=== PATIENT | female | born 1965 | race Caucasian/White ===

== ENCOUNTER 2018-08-02 01:09 | Observation (INO) ==
[2018-08-02 01:43] LABS: Basophils # (auto) 0.11 K/uL (0-0.2); Basophils % (auto) 0.8 %; Eosinophils # (auto) 0.14 K/uL (0-0.5); Hematocrit (blood only) 50.7 % (37-47); Hemoglobin 16.5 g/dL (12.0-16.0); Immature Granulocytes # (auto) 0.06 K/uL (0.00-0.02); Immature Granulocytes % (auto) 0.4 %; Lymphocytes # (auto) 3.65 K/uL (1.2-3.4); Lymphocytes % (auto) 26.3 %; Mean Corpuscular Hgb Conc 32.5 g/dL (32-36); Mean Corpuscular Volume 84.6 fL (80-100); Mean Platelet Volume 9.1 fL (7.4-10.4); Monocytes # (auto) 0.68 K/uL (0.11-0.59); Monocytes % (auto) 4.9 %; Neutrophils # (auto) 9.22 K/uL (1.4-6.5); Neutrophils % (auto) 66.6 %; Platelet Count 262 K/uL (130-400); RDW Coefficient of Variation 14.5 % (11.5-14.5); RDW Standard Deviation 44.8 fL (36.4-46.3); Red Blood Count 5.99 M/uL (4.2-5.4); White Blood Count 13.86 K/uL (4.8-10.8)
[2018-08-02] MEDS ORDERED: fentaNYL citrate 100 MCG/2 ML VIAL IV ONE (01:52)
[2018-08-02] MEDS ORDERED: NITROGLYCERIN SL 0.4 MG/TAB TAB SL STA (01:52)
[2018-08-02 02:00] LABS: Alanine Aminotransferase 34 U/L (12-78); Albumin Level 3.9 gm/dl (3.4-5.0); Aspartate Aminotransferase 48 U/L (15-37); BUN Creatinine Ratio 15.6 (10-20); Blood Urea Nitrogen 18 mg/dl (7-18); Calcium 9.2 mg/dl (8.5-10.1); Carbon Dioxide 26 mmol/L (21-32); Chloride 102 mmol/L (98-107); Est GFR (Non-African American) 52.6; Glucose 98 mg/dl (70-99); Potassium 4.4 mmol/L (3.5-5.1); Sodium 134 mmol/L (136-145)
[2018-08-02 02:05] LABS: Alkaline Phosphatase 76 U/L (45-117); Bilirubin,Total 0.5 mg/dl (0.2-1); Globulin 3.9 gm/dl (2.5-4.0); Total Protein 7.8 gm/dl (6.4-8.2); Troponin I < 0.015 ng/ml (0-0.045)
[2018-08-02] MEDS ORDERED: fentaNYL citrate 100 MCG/2 ML VIAL IV STA (03:11)
--- NOTE | 2018-08-02 03:40 | History & Physical Report ---
Date of Service August 02, 2018 Assessment & Plan (1) Substernal chest pain: 53 y/o F Hx HTN, HLD, DM II, COPD - 4L 02, CHF - R heart with preserved LVEF, hypothyroid, severe MICHAEL, CAD - PR x 3. The pt presents with intermittent CP x 2-3 days. She describes the pain as central, nonradiating and accompanied by SOB, diaphoresis and nausea. She arrived in the ER profusely diaphoretic and responded well to NTG. The pt was last admitted to the hospital for CP 10/2017. Her last PR took place in the town [facility] in 2013. Initial labs are unremarkable including a negative troponin. An EKG showed some flattened T wvs laterally without depressions or elevations. Of note, she recently underwent a sleep study which demonstrated severe MICHAEL with severe nocturnal hypoxia. She is expecting delivery of an initial CPAP machine on 08/03. 1) CAD/CP - second admission for such complaints. Multiple risk factors may merit a catheterization. This will be left to the discretion of cardiology. She will receive NTG and/or morphine PRN, cont high-intensity statin therapy, Plavix and metoprolol. We will add ASA. 2) COPD - no evidence of acute exacerbation - cont 02 at 4L, Symbicort, Albuterol PRN 3) Severe MICHAEL - she has not yet received a CPAP machine. She will be placed on 12mm with 4L 02 per recommendations from a recent sleep study. 4) CHF - likely euvolemic on admission - laying flat comfortably an CXR is clear - cont Lasix, Aldactone, metoprolol 5) HTN, HLD - cont Atorvastatin, diuretics, metoprolol, verapamil 6) DM II - placed on a SS 7) Hypothyroid - cont Synthroid 8) Migraines - cont Topiramate, Verapamil Full code - Heparin prophylaxis Total time for this admission including review of extensive records, labs, meds, imaging, EKG, discussion with pt and ER attending - 45 min Present on Admission?: Yes History of Present Illness Primary Care Provider: Jayden Nelson, DO 53 y/o F Hx HTN, HLD, DM II, COPD - 4L 02, CHF - R heart with preserved LVEF, hypothyroid, severe MICHAEL, CAD - PR x 3. The pt presents with intermittent CP x 2-3 days. She describes the pain as central, nonradiating and accompanied by SOB, diaphoresis and nausea. She arrived in the ER profusely diaphoretic and responded well to NTG. The pt was last admitted to the hospital for CP 10/2017. Her last PR took place in the town of [facility] in 2013. Initial labs are unremarkable including a negative troponin. An EKG showed some flattened T wvs laterally without depressions or elevations. Of note, she recently underwent a sleep study which demonstrated severe MICHAEL with severe nocturnal hypoxia. She is expecting delivery of an initial CPAP machine on 08/03. PMH: 1) CAD - PR x 3 - 2 stents 2) HTN 3) HLD 4) CHF - preserved LVEF with reduced RV function on echo 2017 5) DM II 6) MICHAEL with severe nocturnal hypoxia - sleep study 06/28 recommended CPAP 12mm HS 7) COPD - 4L home 8) Morbid obesity 9) Obesity hypoventilation with chronic CO2 retention - her PCO2 averaged 60 on a prior admission 10) Hypothyroidism 11) RLS 12) DM II 13) Fatty liver 14) Avid smoker 15) Migraine headaches Surgical: 1) Cholecystectomy 2) Appendectomy 3) Hernia repair 4) Hysterectomy 5) Tonsillectomy Social: Smokes a pack of cigarettes daily since age 14, so she is approaching the 40th anniversary of her tobacco habit. She does not drink alcohol or indulge in street drugs. Family: Mother due to PR Father is alive - history of CAD/PR Allergies Allergy/AdvReac Type Severity Reaction Status Date / Time No Known Allergies Allergy Unverified 07/24/18 08:50 Home Medications Home Medications Medication Instructions Recorded Confirmed Type bupropion HCl [Wellbutrin XL] 300 mg PO QAM 10/22/17 08/02/18 History [id number]-[id number] 1 - 2 cap PO Q4H PRN 10/22/17 08/02/18 History clopidogrel [Plavix] 75 mg PO QPM 10/22/17 08/02/18 History diclofenac potassium 50 mg PO BID 10/22/17 08/02/18 History diphenhydramine HCl [Benadryl] 25 mg PO BID 10/22/17 08/02/18 History duloxetine 60 mg PO DAILY 10/22/17 08/02/18 History furosemide [Lasix] 40 mg PO DAILY 10/22/17 08/02/18 History gabapentin 800 mg PO TID 10/22/17 08/02/18 History magnesium oxide 400 mg PO BID 10/22/17 08/02/18 History metformin 1,000 mg PO BID 10/22/17 08/02/18 History metoprolol tartrate [Lopressor] 50 mg PO QPM 10/22/17 08/02/18 History ropinirole [Requip] 1 mg PO BID 10/22/17 08/02/18 History spironolactone 12.5 mg PO QPM 10/22/17 08/02/18 History trazodone 100 mg PO QPM 10/22/17 08/02/18 History albuterol sulfate 2 puffs INH Q4H PRN #8.5 gm 10/28/17 08/02/18 Rx fenofibrate 160 mg tablet 160 mg PO DAILY 05/08/18 08/02/18 History levothyroxine 50 mcg tablet 50 mcg PO DAILY 05/08/18 08/02/18 History topiramate XR 25 mg 25 mg PO BID cap 05/08/18 08/02/18 History capsule,extended release 24 hr atorvastatin 80 mg tablet 80 mg PO QPM #90 tab 07/17/18 08/02/18 Rx verapamil ER (SR) 240 mg 240 mg PO QPM #90 tab 07/17/18 08/02/18 Rx tablet,extended release bacitracin 1 applic TOPICAL BID 08/02/18 08/02/18 History budesonide-formoterol [Symbicort] 2 puff INHALATION BID 08/02/18 08/02/18 History erenumab-aooe [Aimovig 70 mg SUBCUT DIRECTED 08/02/18 08/02/18 History Autoinjector] ertugliflozin [Steglatro] 15 mg PO QAM 08/02/18 08/02/18 History insulin glargine [Basaglar KwikPen 30 unit SUBCUT HS 08/02/18 08/02/18 History U-100 Insulin] liraglutide [Victoza 2-Isidro] 1.8 mg SUBCUT DAILY 08/02/18 08/02/18 History tramadol 50 mg PO Q12H PRN 08/02/18 08/02/18 History Past Med/Surg History Medical History Acquired deformity of left foot (Acute) Acquired deformity of right foot (Acute) Bilateral swelling of feet (Acute) Callus (Acute) Diabetes mellitus with diabetic polyneuropathy (Acute) Left midfoot ulcer (Acute) Asthma (Chronic) CHF (congestive heart failure) (Chronic) COPD (chronic obstructive pulmonary disease) (Chronic) Coronary artery disease (Chronic) Glaucoma (Chronic) H/O diabetic nephropathy (Chronic) HTN, goal to be determined (Chronic) Heart failure (Chronic) Hyperlipemia (Chronic) Hypertriglyceridemia (Chronic) Hypothyroid (Chronic) Insomnia (Chronic) Marijuana use (Chronic) Obesity (Chronic) Restless leg (Chronic) Tobacco use (Chronic) Tremor (Chronic) H/O: hysterectomy (Resolved) Anxiety Bipolar disorder Depression Diabetes mellitus, type 2 Heart attack Obsessive compulsive disorder Posttraumatic stress disorder Surgical History H/O hernia repair (Resolved) History of (Resolved) History of appendectomy (Resolved) History of cholecystectomy (Resolved) S/P tonsillectomy (Resolved) H/O heart artery stent History of heart artery stent Family History Other Family history unknown Social History Preferred Language: Israeli Communication Ability: Effective Beliefs That Will Affect Care: None marital status: Current Living Situation: Spouse current occupational status: unemployed Feels Safe at Home: Yes Smoking Status: Current every day smoker Tobacco Type: cigarettes Second Hand Exposure: No Hx Alcohol Use: No Hx Substance Use: Yes substance use type: marijuana Review of Systems Review of Systems: Gen: Denies fevers, night sweats, rigors, fatigue, malaise, weight loss/gain - profuse diaphoresis with CP ENT: Denies congestion, throat pain, hearing loss Eyes: Denies acute visual changes CV: Central CP as per HPI Pulmonary: SOB during episodes of CP GI: Denies N/V, diarrhea, constipation Neuro: Denies acute or unilateral weakness, acute gait impairment, headache or acute visual changes Musculoskeletal: Denies joint pain, inflammation Endocrine: Denies polydipsia, polyuria Skin: Denies acute rashes or ulcers Physical Exam Physical Exam: General: Obese, middle-aged F, AAO x 3, no distress ENT: No erythema or exudates, no thrush Eyes: JERMAN, EOMI Head and neck: Normocephalic, atraumatic, neck is supple, cannot evaluate for JVD. Chest/heart: Nontender, S1,2, RRR, no murmurs, no gallops Lungs: CTAB, no wheezing or crackles Abdomen: Nontender, nondistended, BS+ Neuro: AAO x 3, speech is clear, no unilateral weakness or loss of sensation, coordination intact Musculoskeletal: No joint inflammation, muscle tenderness, FROM Skin: No acute rashes or ulcers Extremities: No clubbing, cyanosis. + BL edema. Results & Data Vital Signs (Past 12 Hours) Vital Signs Temp Pulse Pulse Resp BP BP Pulse Ox 08/02/18 02:59 74 20 114/73 97 08/02/18 02:14 90 08/02/18 01:36 94 08/02/18 01:23 79 19 144/89 H 96 08/02/18 01:14 97.9 F 78 20 128/85 94 Diagnostic Findings CXR: No infiltrates or evidence of vascular congestion EKG: NSR, Lat T wave flattening - no elevations/depressions PG Care Time/CCT Total # of Minutes Spent Total Time Spent with Patient: Total time spent is greater than 50% in coordination of care (as documented) at patient's floor/unit and/or counseling patient:
[2018-08-02] MEDS ORDERED: POLYETHYLENE (MIRALAX) 17 GM PACK PO PRN (05:56)
[2018-08-02] MEDS ORDERED: ALBUTEROL HFA 8 GM INHALER INH PRN (05:56)
[2018-08-02] MEDS ORDERED: NITROGLYCERIN SL 0.4 MG/TAB TAB SL PRN (05:56)
[2018-08-02] MEDS ORDERED: ALUMINUM/MAGNESIUM SUSP 30 ML UDC PO PRN (05:56)
[2018-08-02] MEDS ORDERED: MAGNESIUM HYDROXIDE SUSP 30 ML UDC PO PRN (05:56)
[2018-08-02] MEDS ORDERED: ONDANSETRON INJ 2 MG/ML 2 ML VIAL IV PRN (05:56)
[2018-08-02] MEDS ORDERED: ACETAMINOPHEN 325 MG TAB PO PRN (05:56)
[2018-08-02] MEDS ORDERED: NITROGLYCERIN SL 0.4 MG/TAB TAB ONE (05:59)
[2018-08-02] MEDS ORDERED: MoRPHine SULFATE 4 MG/ML 1 ML CARP\\VIAL IV PRN (05:59)
[2018-08-02] MEDS ORDERED: HEPARIN SOD 5,000 UNIT/0.5 ML VIAL SQ SCH (06:00)
--- NOTE | 2018-08-02 06:22 | XRay Report ---
XR chest 1V portable CLINICAL HISTORY: Atypical chest pain COMPARISON STUDY: 10/22/2017 FINDINGS: The cardiac and mediastinal contours are normal. There is no evidence of focal pulmonary co nsolidation. There is no evidence of failure. No pleural effusions are visualized.[ IMPRESSION: No active disease in the chest. Electronically signed by: Aquiles Dickinson M.D. 08/02/2018 6:21 AM
--- NOTE | 2018-08-02 06:36 | Emergency Department Note ---
Entered by Jaimee Magana acting as a scribe for History of Present Illness General Chief complaint: Chest Pain Stated complaint: CHEST AND BACK BACK, SHOOTING PAIN LEFT ARM Time Seen by Provider: 08/02/18 01:34 Source: patient History of Present Illness Onset (ago): hour(s) 3 Location: chest Severity: similar to prior episodes (heart attacks) Pain Consistency: + other (persistent) Maximum Pain Intensity: 9 Relieved By: not by medication (Nitroglycerin, Aspirin) Associated symptoms: + denies other symptoms (abdominal pain), + diaphoresis, + headaches, + nausea/vomiting (nausea), + shortness of breath and + other (weight loss, leg swelling) The patient is a 53 year old female who presents to the ED with complaints of persistent chest pain starting 3 hours ago. The patient states that she has a history of heart attacks with 2 stent placements and this feels similar. She notes that her last heart attack was February [id number]. She states that this evening she wasnt doing anything when the pain started. She states that the pain made her short of breath, diaphoretic, and nauseous. She states that she t ried taking 3 Nitroglycerin and 2 Aspirin, but it only helped subside the pain for 10 minutes before it returned. The patient complains of recent weight loss, a headache, and leg swelling. The patient denies abdominal pain. Home Medications Home Medications Medication Instructions Recorded Confirmed Type bupropion HCl [Wellbutrin XL] 300 mg PO QAM 10/22/17 08/02/18 History [id number]-jcreblaoeuclb-evqi 1 - 2 cap PO Q4H PRN 10/22/17 08/02/18 History clopidogrel [Plavix] 75 mg PO QPM 10/22/17 08/02/18 History diclofenac potassium 50 mg PO BID 10/22/17 08/02/18 History diphenhydramine HCl [Benadryl] 25 mg PO BID 10/22/17 08/02/18 History duloxetine 60 mg PO DAILY 10/22/17 08/02/18 History furosemide [Lasix] 40 mg PO DAILY 10/22/17 08/02/18 History gabapentin 800 mg PO TID 10/22/17 08/02/18 History magnesium oxide 400 mg PO BID 10/22/17 08/02/18 History metformin 1,000 mg PO BID 10/22/17 08/02/18 History metoprolol tartrate [Lopressor] 50 mg PO QPM 10/22/17 08/02/18 History ropinirole [Requip] 1 mg PO BID 10/22/17 08/02/18 History spironolactone 12.5 mg PO QPM 10/22/17 08/02/18 History trazodone 100 mg PO QPM 10/22/17 08/02/18 History albuterol sulfate 2 puffs INH Q4H PRN #8.5 gm 10/28/17 08/02/18 Rx fenofibrate 160 mg tablet 160 mg PO DAILY 05/08/18 08/02/18 History levothyroxine 50 mcg tablet 50 mcg PO DAILY 05/08/18 08/02/18 History topiramate XR 25 mg 25 mg PO BID cap 05/08/18 08/02/18 History capsule,extended release 24 hr atorvastatin 80 mg tablet 80 mg PO QPM #90 tab 07/17/18 08/02/18 Rx verapamil ER (SR) 240 mg 240 mg PO QPM #90 tab 07/17/18 08/02/18 Rx tablet,extended release bacitracin 1 applic TOPICAL BID 08/02/18 08/02/18 History budesonide-formoterol [Symbicort] 2 puff INHALATION BID 08/02/18 08/02/18 History erenumab-aooe [Aimovig 70 mg SUBCUT DIRECTED 08/02/18 08/02/18 History Autoinjector] ertugliflozin [Steglatro] 15 mg PO QAM 08/02/18 08/02/18 History insulin glargine [Basaglar KwikPen 30 unit SUBCUT HS 08/02/18 08/02/18 History U-100 Insulin] liraglutide [Victoza 2-Isidro] 1.8 mg SUBCUT DAILY 08/02/18 08/02/18 History tramadol 50 mg PO Q12H PRN 08/02/18 08/02/18 History Allergies Allergy/AdvReac Type Severity Reaction Status Date / Time No Known Allergies Allergy Unverified 07/24/18 08:50 Past Med/Surg History Medical History Acquired deformity of left foot (Acute) Acquired deformity of right foot (Acute) Bilateral swelling of feet (Acute) Callus (Acute) Diabetes mellitus with diabetic polyneuropathy (Acute) Left midfoot ulcer (Acute) Asthma (Chronic) CHF (congestive heart failure) (Chronic) COPD (chronic obstructive pulmonary disease) (Chronic) Coronary artery disease (Chronic) Glaucoma (Chronic) H/O diabetic nephropathy (Chronic) HTN, goal to be determined (Chronic) Heart failure (Chronic) Hyperlipemia (Chronic) Hypertriglyceridemia (Chronic) Hypothyroid (Chronic) Insomnia (Chronic) Marijuana use (Chronic) Obesity (Chronic) Restless leg (Chronic) Tobacco use (Chronic) Tremor (Chronic) H/O: hysterectomy (Resolved) Anxiety Bipolar disorder Depression Diabetes mellitus, type 2 Heart attack Obsessive compulsive disorder Posttraumatic stress disorder Surgical History H/O hernia repair (Resolved) History of (Resolved) History of appendectomy (Resolved) History of cholecystectomy (Resolved) S/P tonsillectomy (Resolved) H/O heart artery stent History of heart artery stent Family History Other Family history unknown Social History Preferred Language: Taiwanese Communication Ability: Effective 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 and A total of 10 systems reviewed and were otherwise negative Physical Exam Vital Signs Vital Signs - 24 hr 08/02/18 01:14 08/02/18 01:23 08/02/18 01:36 Temperature 36.6 C Temperature Source Oral Sepsis Recent Fever Within 48 Hours No Sepsis Action Taken by Nursing No Action Required Pulse Rate 78 Pulse Rate [Apical] 79 Respiratory Rate 20 19 Respiratory Effort / Characteristics Respiratory Depth Blood Pressure 128/85 Blood Pressure [Right Arm] 144/89 H Blood Pressure Mean 99 Blood Pressure Mean [Right Arm] 107 Pulse Oximetry 94 96 94 Oxygen Delivery Method Room Air Room Air Room Air Oxygen Flow Rate 08/02/18 02:14 08/02/18 02:59 08/02/18 04:15 Temperature Temperature Source Sepsis Recent Fever Within 48 Hours Sepsis Action Taken by Nursing Pulse Rate Pulse Rate [Apical] 74 76 Respiratory Rate 20 16 Respiratory Effort / Characteristics Non-Labored Spontaneous Non-Labored Spontaneous Respiratory Depth Normal Normal Blood Pressure Blood Pressure [Right Arm] 114/73 116/80 Blood Pressure Mean Blood Pressure Mean [Right Arm] 86 92 Pulse Oximetry 90 97 98 Oxygen Delivery Method Nasal Cannula Room Air Nasal Cannula Oxygen Flow Rate 0 4 4 General: Morbidly obese female that appears uncomfortable. Smells of tobacco. HEENT: Head - normocephalic and atraumatic Pupils are equal, round, and reactive to light. Extraocular eye muscles are intact, and sclera are anicteric. Nose - moist nasal mucosa without discharge. Mouth - moist buccal mucosa. Oropharynx is nonerythematous and there is no tonsillar exudate or edema noted. Neck: Supple; no JVD, nuchal rigidity, cervical lymphadenopathy. Heart: Distant heart sounds secondary to body habitus. Regular rate and rhythm. There is a normal S1 and S2 with no murmurs, clicks, or gallops appreciated. Lungs: Clear to auscultation bilaterally with no wheezes, rales, or rhonchi. Abdomen: Soft, completely nontender, nondistended, with good bowel sounds. There are no palpable pulsatile masses or hepatosplenomegaly. There is no guarding, rigidity, or rebound noted. Extremities: 2+ pedal edema. No evidence of cyanosis or clubbing. There are easily palpable peripheral pulses. Skin: warm and dry with good turgor and no rashes. Course 0147: Past medical records reviewed. The patient was evaluated in room B9. A complete history and physical exam was performed. A twelve-lead EKG was obtained. Labs were drawn as above. 0152: Ordered Nitroglycerin 0.4 mg SL, Fentanyl Citrate 100 mcg IV. Patient had a portable chest x-ray as described above. 0242: I reevaluated the patient and her headache is gone. Her chest pain is now down to a 2, but she is profusely sweating. 0310: I reevaluated the patient and her pain is at a 3. Her sweating has stopped. I discussed her test results and the treatment plan with her. She verbally agrees and understands. I am going to give her more medications. 0311: Ordered Fentanyl Citrate 50 mcg IV. 0347: I discussed the patient's case with Dr. Lehman Hospitalist. He will evaluate the patient for further management. Consultations Consultation #1: I discussed the patient's case with Dr. Lehman Hospitalist. He will evaluate the patient for further management. Time: 03:47 Administered Medications Discontinued Medications Fentanyl Citrate (Fentanyl Citrate) 100 mcg IV NOW ONE Stop: 08/02/18 01:53 Last Admin: 08/02/18 02:04 Dose: 100 mcg Documented by: [id number] Fentanyl Citrate (Fentanyl Citrate) 50 mcg IV NOW STA Stop: 08/02/18 03:12 Last Admin: 08/02/18 03:30 Dose: 50 mcg Documented by: [id number] Nitroglycerin (Nitrostat) 0.4 mg SL NOW STA Stop: 08/02/18 01:53 Last Admin: 08/02/18 02:04 Dose: 0.4 mg Documented by: [id number] Nitroglycerin (Nitrostat) Confirm Administered Dose 0.4 mg .ROUTE .STK-MED ONE Stop: 08/02/18 06:00 Last Admin: 08/02/18 06:00 Dose: 0.4 mg Documented by: [id number] Medical Decision Making Differential Diagnosis Differential diagnoses include unstable angina, STEMI, ACS. Medical Records Attestation: I reviewed the patient's medical records. Home Medications Current Medication List: was personally reviewed by me Laboratory Data Attestation: I reviewed the patient's lab results. Result diagrams: 08/02/18 01:30 08/02/18 01:30 Lab Results 08/02/18 08/02/18 Range/Units 01:30 01:30 WBC 13.86 H (4.8-10.8) K/uL RBC 5.99 H (4.2-5.4) M/uL Hgb 16.5 H (12.0-16.0) g/dL Hct 50.7 H (37-47) % MCV 84.6 (80-100) fL MCH 27.5 (25-34) pg MCHC 32.5 (32-36) g/dL RDW Std Deviation 44.8 (36.4-46.3) fL RDW Coeff of Caitlin 14.5 (11.5-14.5) % Plt Count 262 (130-400) K/uL MPV 9.1 (7.4-10.4) fL Immature Gran % (Auto) 0.4 % Neut % (Auto) 66.6 % Lymph % (Auto) 26.3 % Bowman % (Auto) 4.9 % Eos % (Auto) 1.0 % Baso % (Auto) 0.8 % Immature Gran # (Auto) 0.06 H (0.00-0.02) K/uL Neut # (Auto) 9.22 H (1.4-6.5) K/uL Lymph # (Auto) 3.65 H (1.2-3.4) K/uL Bowman # (Auto) 0.68 H (0.11-0.59) K/uL Eos # (Auto) 0.14 (0-0.5) K/uL Baso # (Auto) 0.11 (0-0.2) K/uL Sodium 134 L (136-145) mmol/L Potassium 4.4 (3.5-5.1) mmol/L Chloride 102 (98-107) mmol/L Carbon Dioxide 26 (21-32) mmol/L Anion Gap 6.0 (3-11) BUN 18 (7-18) mg/dl Creatinine 1.18 (0.6-1.2) mg/dl Est Cr Clr Drug Dosing Not Reportable Est GFR ( Amer) 61.0 Est GFR (Non-Af Amer) 52.6 BUN/Creatinine Ratio 15.6 (10-20) Glucose 98 (70-99) mg/dl Calcium 9.2 (8.5-10.1) mg/dl Total Bilirubin 0.5 (0.2-1) mg/dl AST 48 H (15-37) U/L ALT 34 (12-78) U/L Alkaline Phosphatase 76 (45-117) U/L Troponin I < 0.015 (0-0.045) ng/ml Total Protein 7.8 (6.4-8.2) gm/dl Albumin 3.9 (3.4-5.0) gm/dl Globulin 3.9 (2.5-4.0) gm/dl Albumin/Globulin Ratio 1.0 (0.9-2) Lipase 120 (73-393) U/L Imaging Data Attestation: I personally reviewed and interpreted this imaging study as follows: My Impression: CHEST X-RAY: The results were interpreted by me. No pleural effusions. No pulmonary infiltrate. ECG Data Attestation: I personally reviewed and interpreted this ECG as follows: Indication: chest pain Rate (beats per minute): 76 Rhythm: normal sinus Findings: + other (flattened T waves laterally); no PAC, no PVC and no ectopy Comparison ECG Date: from (10/22/2017) Change: the following changes noted (Flattened T waves are new) Blood Pressure Blood Pressure Findings: Elevated blood pressure Blood Pressure Disposition: further management by hospitalist MDM Narrative The patient is a 53 year old female who presents to the ED with complaints of persistent chest pain starting 3 hours ago. The patient has a long history of cardiac disease. She is moderately diaphoretic on physical exam. There is some T wave flattening in the lateral leads. Patient's chest discomfort was relieved by nitroglycerin. She is hemodynamically stable. I discussed the case with the [facility] Hospitalist and they will evaluate for further management. Impression & Plan Substernal chest pain Discharge Plan Visit Data *Final* Discharge Date/Time: 08/02/18 05:28 Chief Complaint: Chest Pain Stated Complaint: CHEST AND BACK BACK, SHOOTING PAIN LEFT ARM ED Provider: Lilo Molina Discharge Problem: Substernal chest pain Patient Disposition: Admitted As Inpatient Discharge Instructions Interventions: ED Discharge Assessment Last Done: 08/02/18 05:28 The scribe's documentation has been prepared under my direction and personally reviewed by me in its entirety. I confirm that the note above accurately reflects all work, treatment, procedures, and medical decision making performed by me.
[2018-08-02] MEDS ORDERED: DEXTROSE 50% 50 ML SYRINGE IV PRN (07:30)
[2018-08-02] MEDS ORDERED: GLUCOSE 10 TABS/TUBE PO PRN (07:30)
[2018-08-02] MEDS ORDERED: GLUCOSE 40% GEL 15 GM TUBE PO PRN (07:30)
[2018-08-02] MEDS ORDERED: CARBOHYDRATES FOR HYPOGLYCEMIA PO PRN (07:30)
[2018-08-02] MEDS ORDERED: GLUCAGON FOR INJ 1 MG VIAL IM PRN (07:30)
[2018-08-02] MEDS ORDERED: PNEUMOCOCCAL POLYSACCHARIDES 25 MCG/0.5 ML VIAL/SYR IM ONE (08:00)
[2018-08-02] MEDS ORDERED: PNEUMOCOCCAL ADMINISTRATION CHARGE ONE (08:00)
[2018-08-02] MEDS: BUDESONIDE/FORMOTEROL FUMARATE 160/4.5 60 PUFFS/INHALER INH SCH ×2 (08:14→20:29)
[2018-08-02] MEDS: FUROSEMIDE 40 MG TAB PO SCH (08:15)
[2018-08-02] MEDS: BuPROPion XL 300 MG TABCR PO SCH (08:16)
[2018-08-02] MEDS: DULOXETINE HCL 60 MG CAP PO SCH (08:16)
[2018-08-02 08:17] LABS: Prothrombin Time 10.5 Seconds (9.0-12.0)
[2018-08-02] MEDS: LEVOTHYROXINE SODIUM 50 MCG TABLET PO SCH (08:17)
[2018-08-02] MEDS: ASPIRIN 81 MG ECTAB PO SCH (08:17)
[2018-08-02] MEDS: ROPINIROLE HCL 1 MG TABLET PO SCH ×2 (08:18→20:32)
[2018-08-02] MEDS: TOPIRAMATE 25 MG TAB PO SCH ×2 (08:18→20:29)
[2018-08-02] MEDS: MAGNESIUM OXIDE 400 MG TAB PO SCH ×2 (08:18→20:30)
[2018-08-02] MEDS: GABAPENTIN 800 MG TAB PO SCH ×3 (08:19→20:30)
[2018-08-02] MEDS ORDERED: NON-FORMULARY MEDICATION (Fenofibrate 160 MG) PO SCH (09:00)
[2018-08-02] MEDS ORDERED: FUROSEMIDE 40 MG/4 ML VIAL IV STA (11:16)
[2018-08-02] MEDS ORDERED: FUROSEMIDE 40 MG in SYRINGE 0 ML IV STA (11:18)
[2018-08-02] MEDS: INSULIN ASPART 100 UNITS/ML 3 ML PEN SC SCH ×2 (12:07→17:42)
[2018-08-02] MEDS: TRAMADOL HCL 50 MG TABLET PO PRN (12:15)
[2018-08-02] MEDS: HEPARIN SOD 5,000 UNIT/0.5 ML VIAL SQ SCH ×2 (13:17→21:37)
--- NOTE | 2018-08-02 20:22 | Family Medicine Progress Note ---
Date of Service August 02, 2018 Assessment & Plan (1) Substernal chest pain: Substernal C/P in the setting up CAD and 3 previous MIs - Trop Negative x 3 - EKG shows no acute ischemic changes - Echo 08/02 - EF 60-65%, No wall motion abnormalities, Normal LV systolic function - Can consider stress Echo on 08/03 - PRN Morphine and NTG - Continue Statin, Plavix, ASA (added on admission), and Metoprolol COPD - 4L NC at Baseline - Continue home Symbicort - Albuterol PRN wheezing Severe MICHAEL - CPAP ordered - Patient has yet to receive machine as outpatient (recent sleep study showed requirement of 12mm pressure with 4L 02 requirement) CHF - Echo as above - Due to appearance of being fluid overloaded given 40mg IV Lasix today - Continue home Lasix, Aldactone, and Metoprolol HTN, HLD - Continue home Atorvastatin 80mg PO Daily - Continue home Furosemide 40mg PO Daily - Continue home Metoprolol 50mg PO qPM - Continue home Spironolactone 12.5mg PO qPM Diabetes Mellitus - Hold home Metformin and Victoza - Lantus 30 units qHS - ISS with BSG AC/HS Hypothyroidis - Cont home synthroid Migraines - Continue home meds Code Status: Full Code DVT PPx: Heparin Dispo: Telemetry (2) COPD (chronic obstructive pulmonary disease): (3) Acute on chronic systolic right heart failure: (4) CAD (coronary artery disease), [place] coronary artery: (5) Vitamin D deficiency: (6) Hypertriglyceridemia: (7) Migraine headache: (8) Depression with anxiety: (9) Restless leg syndrome: (10) Diabetic peripheral neuropathy associated with type 2 diabetes mellitus: Supervising Physician Co-Signing Physician Notes I saw the patient with Dr. Ramirez and agree with the impression and plan as noted above. This patient was admitted early this morning, reaching the floor around 6 AM. The patient describes episodes of left sided chest pain with associated nausea and diaphoresis, lasting minutes to an hour. The pain is similar to the pain she had when she had her CT about 9 years ago. Upon exam, she has tenderness in the left upper chest wall, and while this is the same area of her pain, she tells me its a different pain than what she had prior to admission. She also notes that she has put on a couple of pounds and her ankles were more swollen yesterday. Her EKG was non acute and first two troponin negative. IMPRESSION 1) Chest pain 2) History of CAD with prior stent 3) Non acute EKG 4) Negative tropinin x 2 5) Multiple co-morbidities and other medical diagnosis as noted above. PLAN 1) Resting Echo today; if wall motion abnormalities, consider LHC. 2) Home lasix and monitor I/O 3) Consider stress test in AM (I am not sure if she will be able to walk to a predictive HR). Subjective Patient is a 53 year old female that presents this morning with chest pain. The patient currently is resting in bed with no acute complaints. The patient is still experiencing tenderness over the left side of the chest that is tender to palpation. She states that this pain is different from the pain she has been experiencing over the last few days. She states that the pain she has been experiencing is similar to her previous heart attacks. It come on suddenly (3 episodes) lasts minutes to hours, is sharp, radiates to the back and arm, and associated with diaphoresis and shortness of breath. Review of Systems Review of Systems: All systems reviewed & are unremarkable except as noted in HPI & below Physical Exam Constitutional: WD/WN, vitals as above Eyes: + anicteric sclerae ENMT: external ear and nose normal, oropharynx normal Respiratory: normal respiratory effort, lungs clear to auscultation Cardiovascular: RRR, no murmur, no edema Gastrointestinal (Abdomen): normal bowel sounds, soft, nontender, no hepatosplenomegaly Musculoskeletal: no cyanosis or clubbing, extremities motor strength 5/5 Tenderness to palpation over the left 2nd/3rd rib over the midclavicular area. No visible trauma, hematoma, or swelling. Skin: no rashes, warm and dry Psychiatric: A+Ox3, euthymic affect Results & Data Vital Signs (Past 12 Hours) Vital Signs Temp Pulse Pulse Resp BP Pulse Ox 08/02/18 19:50 36.6 C 72 18 109/71 94 08/02/18 15:39 36.3 C L 76 18 108/72 98 08/02/18 15:00 73 08/02/18 12:00 36.4 C L 72 20 115/75 97 08/02/18 08:40 36.0 C L 71 18 118/77 98 PG Care Time/CCT Total # of Minutes Spent Total Time Spent with Patient: Total time spent is greater than 50% in coordination of care (as documented) at patient's floor/unit and/or counseling patient: Resident Activity Tracking Resident Involvement: Resident Care Provided Care Provided: Adult Hospital Medicine (1) COPD (chronic obstructive pulmonary disease) COPD type: unspecified COPD Qualified Code(s): J44.9 - Chronic obstructive pulmonary disease, unspecified
[2018-08-02] MEDS ORDERED: CLOPIDOGREL BISULFATE 75 MG TAB PO SCH (21:00)
[2018-08-02] MEDS ORDERED: TRAZODONE HCL 100 MG TAB PO SCH (21:00)
[2018-08-02] MEDS ORDERED: INSULIN GLARGINE SOLOSTAR 100 UNITS/ML 3 ML PEN SQ SCH (21:00)
[2018-08-02] MEDS ORDERED: METOPROLOL TARTRATE 50 MG TAB PO SCH (21:00)
[2018-08-02] MEDS ORDERED: SPIRONOLACTONE 25 MG TAB PO SCH (21:00)
[2018-08-02] MEDS ORDERED: ATORVASTATIN 40 MG TAB PO SCH (21:00)
[2018-08-02] MEDS ORDERED: VERAPAMIL HCL 240 MG TABCR PO SCH (21:00)
[2018-08-03] MEDS: INSULIN ASPART 100 UNITS/ML 3 ML PEN SC SCH ×3 (00:08→11:46)
[2018-08-03] MEDS: TRAMADOL HCL 50 MG TABLET PO PRN (03:50)
[2018-08-03] MEDS: HEPARIN SOD 5,000 UNIT/0.5 ML VIAL SQ SCH ×2 (06:27→13:10)
[2018-08-03] MEDS: LEVOTHYROXINE SODIUM 50 MCG TABLET PO SCH (06:27)
[2018-08-03] MEDS: GABAPENTIN 800 MG TAB PO SCH ×2 (08:39→13:10)
[2018-08-03] MEDS: DULOXETINE HCL 60 MG CAP PO SCH (08:39)
[2018-08-03] MEDS: FUROSEMIDE 40 MG TAB PO SCH (08:39)
[2018-08-03] MEDS: BUDESONIDE/FORMOTEROL FUMARATE 160/4.5 60 PUFFS/INHALER INH SCH (08:40)
[2018-08-03] MEDS: ASPIRIN 81 MG ECTAB PO SCH (08:40)
[2018-08-03] MEDS: BuPROPion XL 300 MG TABCR PO SCH (08:40)
[2018-08-03] MEDS: MAGNESIUM OXIDE 400 MG TAB PO SCH (08:40)
[2018-08-03] MEDS: TOPIRAMATE 25 MG TAB PO SCH (08:40)
[2018-08-03] MEDS: ROPINIROLE HCL 1 MG TABLET PO SCH (08:41)
--- NOTE | 2018-08-03 09:34 | Discharge Summary ---
Date of Service August 03, 2018 Admission HPI Per Admitting Provider 53 y/o F Hx HTN, HLD, DM II, COPD - 4L 02, CHF - R heart with preserved LVEF, hypothyroid, severe MICHAEL, CAD - NM x 3. The pt presents with intermittent CP x 2-3 days. She describes the pain as central, nonradiating and accompanied by SOB, diaphoresis and nausea. She arrived in the ER profusely diaphoretic and responded well to NTG. The pt was last admitted to the hospital for CP 10/2017. Her last NM took place in the town [facility] in 2013. Initial labs are unremarkable including a negative troponin. An EKG showed some flattened T wvs laterally without depressions or elevations. Of note, she recently underwent a sleep study which demonstrated severe MICHAEL with severe nocturnal hypoxia. She is expecting delivery of an initial CPAP machine on 08/03. PMH: 1) CAD - NM x 3 - 2 stents 2) HTN 3) HLD 4) CHF - preserved LVEF with reduced RV function on echo 2017 5) DM II 6) MICHAEL with severe nocturnal hypoxia - sleep study 06/28 recommended CPAP 12mm HS 7) COPD - 4L home 02 8) Morbid obesity 9) Obesity hypoventilation with chronic CO2 retention - her PCO2 averaged 60 on a prior admission 10) Hypothyroidism 11) RLS 12) DM II 13) Fatty liver 14) Avid smoker 15) Migraine headaches Surgical: 1) Cholecystectomy 2) Appendectomy 3) Hernia repair 4) Hysterectomy 5) Tonsillectomy Social: Smokes a pack of cigarettes daily since age 14, so she is approaching the 40th anniversary of her tobacco habit. She does not drink alcohol or indulge in street drugs. Family: Mother due to NM Father is alive - history of CAD/NM Admission Exam Per Admitting Provider Gen: Denies fevers, night sweats, rigors, fatigue, malaise, weight loss/gain - profuse diaphoresis with CP ENT: Denies congestion, throat pain, hearing loss Eyes: Denies acute visual changes CV: Central CP as per HPI Pulmonary: SOB during episodes of CP GI: Denies N/V, diarrhea, constipation Neuro: Denies acute or unilateral weakness, acute gait impairment, headache or acute visual changes Musculoskeletal: Denies joint pain, inflammation Endocrine: Denies polydipsia, polyuria Skin: Denies acute rashes or ulcers Principal Diagnosis Chest pain Discharge Exam Constitutional WD/WN, vitals as above + morbidly obese and cooperative Eyes + anicteric sclerae and EOM intact bilaterally ENMT external ear and nose normal, oropharynx normal Neck normal visual inspection and trachea midline Respiratory normal respiratory effort, lungs clear to auscultation Cardiovascular Rate/Rhythm: regular rate and regular rhythm chest pain is reproducible with palpation to left ribs 3-5; depressed rib 3 consistent with exhalation dysfunction, inhalation restriction. Muscle energy was provided to rib 3 with improvement in symmetry as compared to right. Gastrointestinal (Abdomen) Percussion/Palpation: abdomen soft; abdomen nontender, no guarding and abdomen not rigid Musculoskeletal Head/Neck/Chest: normocephalic and head atraumatic Skin no rashes, warm and dry Neurologic moves all extremities and awake Psychiatric Orientation: alert and oriented x 3 Discharge Data Allergies Allergy/AdvReac Type Severity Reaction Status Date / Time No Known Allergies Allergy Unverified 07/24/18 08:50 Consultations 08/02/18 03:22 ED Decision to Admit Stat CXR 1 view 08/02 = no active disease in the chest. Echocardiogram 08/02/18 LV systolic function is normal No regional wall motion abnormalities EF = 55-60% Borderline concentric LVH. Dobutamine stress echocardiogram 08/03/17 1. Negative dobutamine stress echocardiogram for Myocardial ischemia 77% of the maximum predicted heart rate 2. No dobutamine induced chest pain 3. No EKG changes 4. Baseline echocardiogram notes normal left ventricular systolic function wi thout wall motion abnormalities. Hospital Course (1) Substernal chest pain: Substernal C/P in the setting up CAD and 3 previous MIs. After thorough workup, no etiology of cardiac pain for evidence of ischemia was identified. Osteopathic examination today was significant for rib dysfunction to the left ribs 3-5 with exhalation dysfunction. Muscle energy provided at bedside and instructed on home stretching exercises to perform. Workup included but may not be limited to the following: - Trop Negative x 3 - EKG shows no acute ischemic changes - Echo 08/02 - EF 60-65%, No wall motion abnormalities, Normal LV systolic function - stress Echo on 08/03 Negative dobutamine stress echocardiogram for Myocardial ischemia 77% of the maximum predicted heart rate - Continue Statin, Plavix, ASA (added on admission), and Metoprolol - Chest pain was reproducible on exam with palpation to left ribs 3-5; depressed rib 3 consistent with exhalation dysfunction, inhalation restriction. Muscle energy was provided to rib 3 with improvement in symmetry as compared to right. COPD - 4L NC at Baseline - Continue home Symbicort - Albuterol PRN wheezing Severe MICHAEL - CPAP ordered - Patient has yet to receive machine as outpatient (recent sleep study showed requirement of 12mm pressure with 4L 02 requirement) - can follow up on equipment as outpatient CHF - Echo as above - Due to appearance of being fluid overloaded given 40mg IV Lasix x1 dose on 08/02. - Continue home Lasix, Aldactone, and Metoprolol HTN, HLD - Continue home Atorvastatin 80mg PO Daily - Continue home Furosemide 40mg PO Daily - Continue home Metoprolol 50mg PO qPM - Continue home Spironolactone 12.5mg PO qPM Diabetes Mellitus - Held home Metformin and Victoza while inpatient - Lantus 30 units qHS - ISS with BSG AC/HS Hypothyroidis - Cont home synthroid Migraines - Continue home meds Code Status: Full Code DVT PPx: Heparin Dispo: Telemetry (2) COPD (chronic obstructive pulmonary disease): (3) Acute on chronic systolic right heart failure: (4) CAD (coronary artery disease), [place] coronary artery: (5) Vitamin D deficiency: (6) Hypertriglyceridemia: (7) Migraine headache: (8) Depression with anxiety: (9) Restless leg syndrome: (10) Diabetic peripheral neuropathy associated with type 2 diabetes mellitus: Total Time Total Time Spent Total Time Spent (In Minutes): <30 Total Time Includes: Examination of the Patient, Discharge Planning and Medication Reconciliation Discharge Plan Discharge Items Patient Disposition: Home - Self-Care Reason For Visit: CHEST PAIN Discharge Diagnosis: Chest pain Discharge Goals: Improve disease control and Therapeutic intervention Activity: Resume your previous activity Non-emergency contact: Primary Care Provider Call non-emergency contact if: you have any medication questions, your symptoms worsen and your pain is concerning for you Follow-up/Referrals: Jayden Nelson DO [Primary Care Provider] - 08/11/18 9:20 am (follow up appointment with your primary care physician) Diet: Carb Consistent or DM2 and Heart Healthy Addtl Provider Instructions: You were admitted because of chest pain and to rule out a heart attack or dysfunction/disease of the heart causing pain. There were no signs of heart attack based on ECG, echocardiogram, lab work. Please continue your previous medication regimen. Please sustain from smoking. Call your Primary Care Doctor for next available appointment for hospital follow up. If you experience worsening chest pain that is concerning for you, please return to [facility] ED/call 911 for medical evaluation. Your pain was most likely musculoskeletal as your pain was reproducible on exam with pushing on your muscles. Please continue stretching exercises as discussed and demonstrated. Also, please continue to work to stop smoking. We believe you can do this and are rooting for you! Prescriptions: Continued topiramate 25 mg capsule,extended release 24hr 25 mg PO BID RF: 0 fenofibrate 160 mg tablet 160 mg PO DAILY RF: 0 levothyroxine [Synthroid] 50 mcg tablet 50 mcg PO DAILY RF: 0 atorvastatin [Lipitor] 80 mg tablet 80 mg PO QPM Qty: 90 RF: 1 verapamil 240 mg tablet extended release 240 mg PO QPM Qty: 90 RF: 0 lgbytmiaaj-baihnbwkwoeka-iiph 50-325-40 mg Capsule 1 - 2 cap PO Q4H PRN (Reason: Headache) RF: 0 ropinirole [Requip] 1 mg Tablet 1 mg PO BID RF: 0 clopidogrel [Plavix] 75 mg Tablet 75 mg PO QPM RF: 0 spironolactone 25 mg Tablet 12.5 mg PO QPM RF: 0 magnesium oxide 400 mg (241.3 mg magnesium) Tablet 400 mg PO BID RF: 0 gabapentin 800 mg Tablet 800 mg PO TID RF: 0 trazodone 100 mg Tablet 100 mg PO QPM RF: 0 diphenhydramine HCl [Benadryl] 25 mg Capsule 25 mg PO BID RF: 0 metformin 1,000 mg Tablet 1,000 mg PO BID RF: 0 metoprolol tartrate [Lopressor] 50 mg Tablet 50 mg PO QPM RF: 0 diclofenac potassium 50 mg Tablet 50 mg PO BID RF: 0 furosemide [Lasix] 20 mg Tablet 40 mg PO DAILY RF: 0 bupropion HCl [Wellbutrin XL] 300 mg Tablet Extended Release 24 Hr 300 mg PO QAM RF: 0 duloxetine 20 mg Capsule,Delayed Release(Dr/Ec) 60 mg PO DAILY RF: 0 albuterol sulfate 90 mcg/actuation HFA aerosol inhaler 2 puffs INH Q4H PRN (Reason: shortness of breath or wheezing) Qty: 8.5 RF: 0 bacitracin 500 unit/gram Ointment 1 applic TOPICAL BID RF: 0 Symbicort 160-4.5 mcg/actuation Hfa Aerosol Inhaler 2 puff INHALATION BID RF: 0 Aimovig Autoinjector 70 mg/mL Auto-Injector 70 mg SUBCUT DIRECTED RF: 0 tramadol 50 mg Tablet 50 mg PO Q12H PRN (Reason: Pain) RF: 0 Basaglar KwikPen U-100 Insulin 100 unit/mL (3 mL) Insulin Pen 30 unit SUBCUT HS RF: 0 Steglatro 15 mg Tablet 15 mg PO QAM RF: 0 Victoza 2-Isidro 0.6 mg/0.1 mL (18 mg/3 mL) Pen Injector 1.8 mg SUBCUT DAILY RF: 0 Visit Report Forms: Smoking Cessation Stand-Alone Forms: Call Back Authorization, [facility]Other Patient Handouts: Tips Cardiovascular Quit Smoking, Angina Heart Attack Recognize, Heart Risk Discharge Orders: Discharge Order (Routine); Ordered 08/03/18 Ordered By: Damir Navas Admission Data Admit Date/Time: 08/02/18 04:37 Attending Provider: Samuel Bravo Admit Provider: Alejandro Mistry Primary Care Provider: Jayden Nelson Other Providers: Alejandro Mistry ; Keegan Parada Service: Telemetry Other Interventions: Discharge Summary Assessment (RN) Last Done: 08/03/18 14:06 DC Date/Time DO NOT enter until pt leaves facility: 08/03/18 15:04 Supervising Physician Co-Signing Physician Notes I personally examined the patient and verified all mahmood points of history and exam, discussed case, and agree with decision making with Dr Navas. Feeling better. Chest pain gone, lasted for hours and hours and hours absolutely unremitting except for a little breaks and allowed her to sleep. Now gone completely. Otherwise basically feeling normal again. Desperate to quit smoking, would like to try Chantix, notes that her primary did not want to use it because of her other medications. Vitals noted, in general she is awake and alert pleasant no distress. HEENT normocephalic atraumatic mucous members are moist. Breathing unlabored no accessory muscle use good effort. Osteopathic/musculoskeletalleft-sided upper ribs markedly decreased range of motion/stuck in exhalation and quite tenderbalanced ligamentous tension/muscle energyimproved range of motion, patient tolerated well. Taught home stretches as well. Chest paingiven the duration of her symptoms and negative enzymes, this appears to have been noncardiac in nature. Her stress test was suboptimal heart rate, but reassuring otherwise. Stable/safe for home. It appears that her chest pain was musculoskeletal in nature. Somatic dysfunctionrib cageOMT as above. Self stretches taught as well. Stable for home. Resident Activity Tracking Resident Involvement: Resident Care Provided Care Provided: Adult Hospital Medicine
[2018-08-03] MEDS ORDERED: ATROPINE SULFATE 0.1 MG/ML 10ML SYR IV ONE ×2 (10:06→10:39)
[2018-08-03] MEDS ORDERED: DOBUTamine HCL 12.5 MG/ML 20 ML VIAL IV ONE (10:06)
[2018-08-03] MEDS ORDERED: METOPROLOL TARTRATE 1 MG/ML VIAL IV ONE (10:06)
[2018-08-03] MEDS ORDERED: PERFLUTREN LIPID MICROSPHERE (DEFINITY) IV ONE (10:58)
== END 2018-08-03 15:04 | disposition home or self-care (01) ==
LOC: 2S 01:09 → ED 01:09 → SUATTDRO 04:37 → 2S 05:28

== ENCOUNTER 2020-05-23 11:21 | Observation (INO) ==
[2020-05-23 12:02] LABS: Basophils # (auto) 0.08 K/uL (0-0.2); Basophils % (auto) 0.5 %; Eosinophils # (auto) 0.12 K/uL (0-0.5); Eosinophils % (auto) 0.8 %; Hematocrit (blood only) 42.3 % (37-47); Hemoglobin 13.8 g/dL (12.0-16.0); Immature Granulocytes # (auto) 0.13 K/uL (0.00-0.02); Immature Granulocytes % (auto) 0.9 %; Lymphocytes # (auto) 2.89 K/uL (1.2-3.4); Lymphocytes % (auto) 19.7 %; Mean Corpuscular Hemoglobin 28.3 pg (25-34); Mean Corpuscular Hgb Conc 32.6 g/dL (32-36); Mean Corpuscular Volume 86.7 fL (80-100); Mean Platelet Volume 9.9 fL (7.4-10.4); Monocytes # (auto) 0.99 K/uL (0.11-0.59); Monocytes % (auto) 6.7 %; Neutrophils # (auto) 10.46 K/uL (1.4-6.5); Neutrophils % (auto) 71.4 %; Platelet Count 272 K/uL (130-400); RDW Coefficient of Variation 15.4 % (11.5-14.5); RDW Standard Deviation 49.3 fL (36.4-46.3); Red Blood Count 4.88 M/uL (4.2-5.4); White Blood Count 14.67 K/uL (4.8-10.8)
--- NOTE | 2020-05-23 12:14 | Emergency Department Note ---
Impression & Plan Cellulitis of hand, Leukocytosis, Acute hyperglycemia ED Provider Note NAME: MARY BETH OLIVERA AGE: 55 SEX: F : 1965 ARRIVES VIA: Walk-In INFORMANT: Patient ED PROVIDER(S): Samuel Stephenson DO CHIEF COMPLAINT: Redness right upper extremity HPI: Patient is a 55-year-old female who presents to the ER for redness on right arm. Redness is on the dorsal surface tracking from the elbow to the hand. Patient was treated by the PCP. Patient's been on doxycycline and Augmentin for total of 8 days. Patient was sent to follow-up with wound care clinic and referred in here as its not getting any better. The swelling has improved but the redness and pain is still present. Denies any headache or change in vision. No chest pain or shortness of breath. No nausea, vomiting, or diarrhea. Admits to some white vesicles intermittently over the redness. She also has a burn right mid forearm. ROS: See above HPI for pertinent positives & negatives. A total of 10 systems reviewed and were otherwise negative. PAST MEDICAL HISTORY:See Below PAST SURGICAL HISTORY:See Below FAMILY HISTORY:See Below SOCIAL HISTORY:See Below HOME MEDICATIONS:See Below ALLERGIES:See Below VITALS:See Below PHYSICAL EXAMINATION: GENERAL: Sitting up in bed, alert, well appearing, well nourished, no distress, non-toxic EYE EXAM: normal conjunctiva. OROPHARYNX: no exudate, no erythema, lips, buccal mucosa, and tongue normal and mucous membranes are moist NECK: supple, no nuchal rigidity, no adenopathy, non-tender LUNGS: Clear to auscultation. Normal chest wall mechanics HEART: no murmurs, S1 normal and S2 normal ABDOMEN: abdomen soft, non-tender, normo-active bowel sounds, no masses, no rebound or guarding. UPPER EXTREMITIES: upper extremities are grossly normal. Redness on the right dorsal forearm tracking from the elbow to the hand at the PIPs. No significant swelling. Radial pulse 2 out of 4. Sensation intact. LOWER EXTREMITIES: No pitting edema. NEURO EXAM: Normal sensorium, cranial nerves II-XII grossly intact, normal speech, no gross weakness of arms, no gross weakness of legs. MEDICAL DECISION MAKING: Patient is a 55-year-old female who presents to the ER for redness on her right forearm. She has been seen and evaluated by PCP and on 8 days of Augmentin and doxycycline. Evaluated by wound care clinic and referred in. IV was established blood work was obtained. Labs show leukocytosis 14,000. No significant anemia. BMP with LFTs bilirubin was unremarkable. UA was clean. Covid was negative. On exam it does appear as though she has a cellulitis. Patient meets exclusion criteria for [place] as it involves the hand. Patient was given IV vancomycin discussed with hospitalist for further evaluation. Triage Nursing notes reviewed. Limited review of prior medical records performed Vital Signs: reviewed and remarkable for no significant abnormalities Differential diagnosis: Cellulitis, abscess, MRSA infection, DVT, necrotizing fasciitis, dermatitis, emelina g eruption, allergic reaction, as well as other pathologies. ER treatment provided: See below Diagnostics interpreted by me: ECG: none Cardiac Monitoring: An order was placed for continuous cardiac monitoring. The monitor shows a rate of 70 with sinus rhythm. Laboratory studies: As stated above and show below. Imaging studies: See below Consultation(s): Discussed with Dr. Ernesto Heard for further evaluation Procedures: none Critical Care: None Past Med/Surg History Medical History (Updated 05/23/20 @ 18:07 by Samuel Stephenson DO) Asthma rare use PRN inh Bipolar disorder COPD (chronic obstructive pulmonary disease) with chronic bronchitis Coronary artery disease Follows with [facility] Coronary artery disease Depression with anxiety Diabetes mellitus, type 2 IDDM Diabetic peripheral neuropathy associated with type 2 diabetes mellitus Dyslipidemia Gastritis Glaucoma Heart failure, systolic, due to CAD History of colon polyps History of heart attack (2008) x2, 2009 and 2009 History of tobacco abuse Hypertension Hypothyroidism Insomnia Marijuana abuse Marijuana use Migraine headache Nocturnal hypoxia Obesity hypoventilation syndrome Obesity, morbid, BMI 40.0-49.9 Obsessive compulsive disorder On home oxygen therapy 4 LPM cont MICHAEL (obstructive sleep apnea) Personal history of diabetic foot ulcer Posttraumatic stress disorder Restless legs syndrome Severe obstructive sleep apnea-hypopnea syndrome CPAP + 4 LPM O2 Shortness of Breath Tobacco abuse Vitamin D deficiency Surgical History H/O heart artery stent x 3 H/O hernia repair (03/11/17) History of appendectomy History of x 2 History of cardiac catheterization 2008 - [place] - 2 stents 2009 - [place] - 1 stent 2013 - CH[facility] - angioplasty, no stents -- all caths done at [facility] in [place], [place] History of cholecystectomy History of colonoscopy most recent 11/11/19 [facility] History of esophagogastroduodenoscopy (EGD) most recent 11/11/19 [facility] S/P cardiac catheterization Dr. Roblero - March 2019 and April 2019. S/P hysterectomy secondary to endometriosis S/P tonsillectomy Family History Father Diabetes Coronary heart disease Myocardial infarction Hypertension Mother Diabetes Coronary heart disease Hypertension Stroke Slow to wake up after anesthesia Brother Diabetes Grandmother (Maternal) Diabetes Myocardial infarction Hypertension Grandmother (Paternal) Coronary heart disease Denies family history of Ovarian cancer Prostate cancer Breast cancer Lung cancer Colorectal cancer Social History Smoking Status: Current every day smoker Second Hand Exposure: No; Do You Dip or Chew Tobacco: No; Tobacco Cessation Education Requested by Patient: No Hx Alcohol Use: No Hx Substance Use: No Preferred Language: Romanian Communication Ability: Effective Visual Impairment: No Limitations Hearing Ability: Normal Home Energy Inspector Required: No Beliefs That Will Affect Care: None marital status: Current Living Situation: Spouse current occupational status: unemployed Other Information That Helps Us Care for You: No Feels Safe at Home: Yes Safety Concerns: Feels Safe At This Time Childhood Exposure to Second-Hand Smoke: Yes caffeine: Yes (ice tea) during the past year weight has: other Dental Care, Regularly: Yes Physical Activity Frequency: 1-2 Times per Week Physical Activity Frequency Comment: swimming Seatbelt Use: always Sunscreen Use: No Assistive Devices: CPAP, Glasses and Oxygen - at Night Allergies Allergies Allergy/AdvReac Type Severity Reaction Status Date / Time No Known Drug Allergies Allergy Verified 05/23/20 10:34 Home Meds Home Medications Medication Instructions Recorded Confirmed budesonide-formoterol HFA 160 2 puff INHALATION BID 10/05/18 05/23/20 mcg-4.5 mcg/actuation aerosol inhaler duloxetine 30 mg capsule,delayed 30 mg PO QAM 10/09/18 05/23/20 release aripiprazole 2 mg tablet 2 mg PO QAM 08/11/19 05/23/20 atomoxetine 80 mg capsule 80 mg PO HS 08/11/19 05/23/20 pen needle, diabetic 31 gauge x ea 10/25/19 05/16/2004/25" cholecalciferol (vitamin D3) 50 mcg PO QAM 11/04/19 05/23/20 duloxetine 60 mg PO QAM 11/04/19 05/23/20 gabapentin 600 mg tablet 800 mg PO TID tab 12/31/19 05/23/20 furosemide 40 mg tablet 40 mg PO QAM tab 01/03/20 05/23/20 famotidine 20 mg tablet 20 mg PO DAILY tab 04/13/20 05/23/20 insulin detemir U-100 100 unit/mL 80 unit SQ QPM box 05/16/20 05/23/20 (3 mL) subcutaneous pen Iodosorb 40 g TOPICAL DAILY PRN 05/23/20 05/23/20 pramipexole 0.5 mg PO DAILY 05/23/20 05/23/20 Previous Rx's Medication Instructions Recorded albuterol sulfate 2 puffs INH Q4H PRN #8.5 gm 10/28/17 prochlorperazine maleate 10 mg PO QID PRN #14 tab 03/24/19 icosapent ethyl 1 gram capsule 2 gm PO BID #120 cap 08/12/19 blood sugar diagnostic #150 ea 08/30/19 blood-glucose meter #1 ea 08/30/19 insulin aspart U-100 100 unit/mL See Rx Instructions SQ .COMPLEX 08/30/19 (3 mL) subcutaneous pen #15 ml topiramate 50 mg tablet 50 mg PO BID #60 tab 09/24/19 magnesium oxide 400 mg (241.3 mg 400 mg PO BID #180 tab 10/22/19 magnesium) tablet metoprolol tartrate 50 mg tablet 25 mg PO QPM #90 tab 10/25/19 trazodone 50 mg tablet 50 mg PO DAILY #30 tab 11/18/19 clopidogrel 75 mg tablet 75 mg PO QPM #30 tab 11/22/19 metformin 1,000 mg tablet 1,000 mg PO BID #60 tab 11/22/19 fenofibrate 160 mg tablet 160 mg PO QAM #30 tab 11/23/19 loratadine-pseudoephedrine ER 10 1 tab PO DAILY #30 tab 12/30/19 mg-240 mg tablet,extended [id number] Portable Oxygen #1 ea 01/04/20 nitroglycerin 0.4 mg sublingual 0.4 mg SUBLINGUAL Q5M PRN #20 tab 03/02/20 tablet diclofenac sodium 50 mg 50 mg PO BID #180 tab 03/09/20 tablet,delayed release Victoza 3-Isidro 0.6 mg/0.1 mL (18 1.8 mg SQ DAILY #9 ml NS 03/27/20 mg/3 mL) subcutaneous pen injector canagliflozin 100 mg tablet 100 mg PO DAILY #30 tab 03/28/20 aspirin [Adult Aspirin Regimen] 81 mg PO DAILY #30 tab 04/03/20 Oxygen Home #2 l 04/11/20 tiotropium bromide 2.5 2 puff INHALATION DAILY #4 g 04/11/20 mcg/actuation mist for inhalation atorvastatin 80 mg tablet 40 mg PO BID #90 tab 04/20/20 levothyroxine 50 mcg tablet 50 mcg PO QAM #90 tab 04/21/20 verapamil 240 mg tablet,extended 240 mg PO QPM #90 tab 04/21/20 release pantoprazole 40 mg tablet,delayed 40 mg PO DAILY 30 Days #30 tab 05/15/20 release amoxicillin 875 mg-potassium 1 tab PO BID 7 Days #14 tab 05/16/20 clavulanate 125 mg tablet doxycycline hyclate 100 mg capsule 100 mg PO BID 7 Days #14 cap 05/16/20 Results & Data (ED) Vital Signs Vital Signs - 24 hr 05/23/20 11:27 05/23/20 11:59 05/23/20 13:42 Temperature 36.4 C L Temperature Source Temporal Artery Scan Pulse Rate 67 Pulse Rate [Left Finger] 72 Respiratory Rate 20 20 Respiratory Effort / Characteristics Non-Labored Respiratory Depth Normal Blood Pressure 120/74 Blood Pressure [Left Arm] 135/80 Blood Pressure Mean 89 Blood Pressure Mean [Left Arm] 98 Pulse Oximetry 96 91 Oxygen Delivery Method Room Air Room Air Room Air Sepsis Recent Fever Within 48 Hours No Sepsis New/Unexplained Change in Mental Status No Sepsis Action Taken by Nursing No Action Required Laboratory Data Result diagrams: 05/23/20 11:40 05/23/20 11:40 Lab Results 05/23/20 05/23/20 05/23/20 Range/Units 11:40 11:40 13:47 WBC 14.67 H (4.8-10.8) K/uL RBC 4.88 (4.2-5.4) M/uL Hgb 13.8 (12.0-16.0) g/dL Hct 42.3 (37-47) % MCV 86.7 (80-100) fL MCH 28.3 (25-34) pg MCHC 32.6 (32-36) g/dL RDW Std Deviation 49.3 H (36.4-46.3) fL RDW Coeff of Caitlin 15.4 H (11.5-14.5) % Plt Count 272 (130-400) K/uL MPV 9.9 (7.4-10.4) fL Immature Gran % (Auto) 0.9 % Neut % (Auto) 71.4 % Lymph % (Auto) 19.7 % [place] % (Auto) 6.7 % Eos % (Auto) 0.8 % Baso % (Auto) 0.5 % Neut # (Auto) 10.46 H (1.4-6.5) K/uL Lymph # (Auto) 2.89 (1.2-3.4) K/uL [place] # (Auto) 0.99 H (0.11-0.59) K/uL Eos # (Auto) 0.12 (0-0.5) K/uL Baso # (Auto) 0.08 (0-0.2) K/uL Immature Gran # (Auto) 0.13 H (0.00-0.02) K/uL Sodium 144 (136-145) mmol/L Potassium 4.1 (3.5-5.1) mmol/L Chloride 106 (98-107) mmol/L Carbon Dioxide 31 (21-32) mmol/L Anion Gap 7.0 (3-11) BUN 22 H (7-18) mg/dl Creatinine 1.03 (0.6-1.2) mg/dl Est Cr Clr Drug Dosing 81.5 ml/min Est GFR ( Amer) 70.9 Est GFR (Non-Af Amer) 61.1 BUN/Creatinine Ratio 21.7 H (10-20) Glucose 159 H (70-99) mg/dl Calcium 9.1 (8.5-10.1) mg/dl Total Bilirubin 0.5 (0.2-1) mg/dl AST 33 (15-37) U/L ALT 14 (12-78) U/L Alkaline Phosphatase 135 H (45-117) U/L Total Protein 6.9 (6.4-8.2) gm/dl Albumin 2.9 L (3.4-5.0) gm/dl Globulin 4.0 (2.5-4.0) gm/dl Albumin/Globulin Ratio 0.7 L (0.9-2) COVID-19 Eval Order CovFluRsv at [facility] SARS-CoV-2 (PCR) (Negative) Influenza Type A (PCR) (Neg) Influenza Type B (PCR) (Neg) RSV (RT-PCR) (Neg) 05/23/20 Range/Units 13:47 WBC (4.8-10.8) K/uL RBC (4.2-5.4) M/uL Hgb (12.0-16.0) g/dL Hct (37-47) % MCV (80-100) fL MCH (25-34) pg MCHC (32-36) g/dL RDW Std Deviation (36.4-46.3) fL RDW Coeff of Caitlin (11.5-14.5) % Plt Count (130-400) K/uL MPV (7.4-10.4) fL Immature Gran % (Auto) % Neut % (Auto) % Lymph % (Auto) % [place] % (Auto) % Eos % (Auto) % Baso % (Auto) % Neut # (Auto) (1.4-6.5) K/uL Lymph # (Auto) (1.2-3.4) K/uL [place] # (Auto) (0.11-0.59) K/uL Eos # (Auto) (0-0.5) K/uL Baso # (Auto) (0-0.2) K/uL Immature Gran # (Auto) (0.00-0.02) K/uL Sodium (136-145) mmol/L Potassium (3.5-5.1) mmol/L Chloride (98-107) mmol/L Carbon Dioxide (21-32) mmol/L Anion Gap (3-11) BUN (7-18) mg/dl Creatinine (0.6-1.2) mg/dl Est Cr Clr Drug Dosing ml/min Est GFR ( Amer) Est GFR (Non-Af Amer) BUN/Creatinine Ratio (10-20) Glucose (70-99) mg/dl Calcium (8.5-10.1) mg/dl Total Bilirubin (0.2-1) mg/dl AST (15-37) U/L ALT (12-78) U/L Alkaline Phosphatase (45-117) U/L Total Protein (6.4-8.2) gm/dl Albumin (3.4-5.0) gm/dl Globulin (2.5-4.0) gm/dl Albumin/Globulin Ratio (0.9-2) COVID-19 Eval Order SARS-CoV-2 (PCR) NEGATIVE (Negative) Influenza Type A (PCR) Negative (Neg) Influenza Type B (PCR) Negative (Neg) RSV (RT-PCR) Negative (Neg) Administered Medications Acetaminophen (Acetaminophen 325 Mg Tab) 650 mg PO Q4H PRN PRN Reason: pain/fever Stop: 06/22/20 16:36 Last Admin: 05/23/20 17:23 Dose: 650 mg Documented by: [id number] Daptomycin 325 mg/ Syringe 6.5 mls @ 3.25 mls/min IV Q24H AKASH; Protocol Stop: 05/30/20 17:59 Last Admin: 05/23/20 17:30 Dose: 3.25 mls/min Documented by: [id number] Cefepime HCl 2,000 mg/ Syringe 20 mls @ 5 mls/min IV Q12H AKASH; Protocol Stop: 05/30/20 17:59 Last Admin: 05/23/20 17:22 Dose: 5 mls/min Documented by: [id number] Discontinued Medications Vancomycin HCl 2,750 mg/ (Sodium Chloride) 555 mls @ 200 mls/hr IV NOW ONE Stop: 05/23/20 16:10 Last Infusion: 05/23/20 17:10 Dose: 0 mls/hr Documented by: [id number] Admin: 05/23/20 13:44 Dose: 200 mls/hr Documented by: [id number] Discharge Plan Visit Data Chief Complaint: Arm Pain Stated Complaint: CELLULITIS/SENT BY WOUND CARE ED Provider: Samuel Stephenson Discharge Problem: Cellulitis of hand, Leukocytosis, Acute hyperglycemia Patient Disposition: Admitted As Inpatient Discharge Instructions Interventions: ED Discharge Assessment Last Done: 05/23/20 16:26 Discharge Problem: Leukocytosis Qualifiers: Leukocytosis type: unspecified Qualified Code(s): D72.829 - Elevated white blood cell count, unspecified
[2020-05-23 12:24] LABS: Albumin Level 2.9 gm/dl (3.4-5.0); BUN Creatinine Ratio 21.7 (10-20); Bilirubin,Total 0.5 mg/dl (0.2-1); Calcium 9.1 mg/dl (8.5-10.1); Creatinine Clr Calc Pharmacy 81.5 ml/min; Est GFR (African American) 70.9; Est GFR (Non-African American) 61.1; Total Protein 6.9 gm/dl (6.4-8.2)
[2020-05-23 12:36] LABS: Albumin Globulin Ratio 0.7 (0.9-2); Potassium 4.1 mmol/L (3.5-5.1)
[2020-05-23] MEDS ORDERED: VANCOMYCIN HCL 2,750 MG in SODIUM CHLORIDE 0.9% 500 ML IV ONE (13:21)
[2020-05-23] MEDS ORDERED: VANCOMYCIN CONSULT ACTIVE PRN (13:21)
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
[2020-05-23 14:42] LABS: Influenza A virus by PCR Negative (Neg); Influenza B virus by PCR Negative (Neg); RSV by PCR Negative (Neg); SARS CoV2 RNA(COVID-19) InHosp NEGATIVE (Negative)
[2020-05-23] MEDS ORDERED: CEFEPIME CONSULT ACTIVE PRN (16:37)
[2020-05-23] MEDS ORDERED: CARBOHYDRATES FOR HYPOGLYCEMIA PO PRN (16:37)
[2020-05-23] MEDS ORDERED: GLUCAGON FOR INJ 1 MG VIAL SQ PRN (16:37)
[2020-05-23] MEDS ORDERED: GLUCOSE 40% GEL 15 GM TUBE PO PRN (16:37)
[2020-05-23] MEDS ORDERED: GLUCOSE 10 TABS/TUBE PO PRN (16:37)
[2020-05-23] MEDS ORDERED: DEXTROSE 50% 50 ML SYRINGE IV PRN (16:37)
[2020-05-23] MEDS: CEFEPIME 2,000 MG in SYRINGE 0 ML IV SCH (17:22)
[2020-05-23] MEDS: ACETAMINOPHEN 325 MG TAB PO PRN (17:23)
[2020-05-23] MEDS: DAPTOmycin 325 MG in SYRINGE 0 ML IV SCH (17:30)
[2020-05-23 17:42] LABS: Appearance Urine Clear (Clear); Bacteria Urine Automated Negative (Negative); Bilirubin Urine Negative (Negative); Blood Urine Negative (Negative); Color Urine Yellow; Epithelial Cell Urine Auto >30 /lpf (0-5); Glucose Urine UA Negative (Negative); Ketones Urine Negative (Negative); Leukocyte Esterase Urine 1+ (Negative); Nitrite Urine Negative (Negative); Protein Urine Negative (Negative); RBC Urine Automated 0-4 /hpf (0-4); Specific Gravity Urine 1.018 (1.000-1.030); Urobilinogen Urine Negative (Negative)
[2020-05-23] MEDS: INSULIN ASPART 100 UNITS/ML 3 ML PEN SC SCH ×2 (18:02→20:31)
[2020-05-23] MEDS: NICOTINE 21 MG/24 HR TDSY TD SCH (18:03)
[2020-05-23] MEDS: DICLOFENAC SODIUM 25 MG TABDR PO SCH (18:03)
[2020-05-23] MEDS: METOPROLOL TARTRATE 25 MG TAB PO SCH (20:32)
[2020-05-23] MEDS: MAGNESIUM OXIDE 400 MG TAB PO SCH (20:32)
[2020-05-23] MEDS: INSULIN DETEMIR FLEXPEN/FLEX TOUCH 100 UNITS/ML 3ML SC SCH (20:32)
[2020-05-23] MEDS: traZODone HCL 50 MG TAB PO SCH (20:32)
[2020-05-23] MEDS: VERAPAMIL HCL 240 MG TABCR PO SCH (20:32)
[2020-05-23] MEDS: CLOPIDOGREL BISULFATE 75 MG TAB PO SCH (20:33)
[2020-05-23] MEDS: ATOMOXETINE HCL 40 MG CAPSULE PO SCH (20:33)
[2020-05-23] MEDS: TOPIRAMATE 50 MG TAB PO SCH (20:33)
[2020-05-23] MEDS: GABAPENTIN 800 MG TAB PO SCH (20:33)
[2020-05-23] MEDS ORDERED: traMADol HCL 50 MG TABLET PO STA (21:46)
[2020-05-23] MEDS: FENOFIBRATE: ORDER AWAITING ACTION SCH (22:54)
[2020-05-24] MEDS: ACETAMINOPHEN 325 MG TAB PO PRN ×3 (01:04→22:56)
[2020-05-24] MEDS: LEVOTHYROXINE SODIUM 50 MCG TABLET PO SCH (05:31)
[2020-05-24] MEDS: CEFEPIME 2,000 MG in SYRINGE 0 ML IV SCH ×2 (05:32→17:37)
[2020-05-24 06:29] LABS: Estimated Average Glucose 217 mg/dl; Hemoglobin A1C 9.2 % (4.5-5.6)
[2020-05-24] MEDS: MAGNESIUM OXIDE 400 MG TAB PO SCH ×2 (08:23→21:00)
[2020-05-24] MEDS: TOPIRAMATE 50 MG TAB PO SCH ×2 (08:23→21:00)
[2020-05-24] MEDS: GABAPENTIN 800 MG TAB PO SCH ×3 (08:23→21:00)
[2020-05-24] MEDS: ASPIRIN 81 MG ECTAB PO SCH (08:24)
[2020-05-24] MEDS: DULoxetine HCL 30 MG CAP PO SCH (08:24)
[2020-05-24] MEDS: FUROSEMIDE 40 MG TAB PO SCH (08:24)
[2020-05-24] MEDS: CHOLECALCIFEROL 1,000 UNITS 25 MCG TAB PO SCH (08:24)
[2020-05-24] MEDS: LORATADINE/PSEUDOEPHEDRINE 1 TABCR PO SCH (08:24)
[2020-05-24] MEDS: PANTOprazole 40 MG TAB PO SCH (08:25)
[2020-05-24] MEDS: FAMOTIDINE 20 MG TAB PO SCH (08:25)
[2020-05-24] MEDS: DULoxetine HCL 60 MG CAP PO SCH (08:25)
[2020-05-24] MEDS: PRAMIPEXOLE DIHYDROCHLO 0.5 MG TAB PO SCH (08:25)
[2020-05-24] MEDS: DICLOFENAC SODIUM 25 MG TABDR PO SCH ×2 (08:25→17:42)
[2020-05-24] MEDS: NICOTINE 21 MG/24 HR TDSY TD SCH (08:26)
[2020-05-24] MEDS: UMECLIDINIUM BROMIDE 62.5MCG/BLISTER 7 PUFFS/INHALER INH SCH (08:27)
[2020-05-24] MEDS: FLUTICASONE/VILANTEROL 200/25MCG 14 PUFFS/INHALER INH SCH (08:28)
[2020-05-24] MEDS: ARIPIprazole 1 MG/ML ORAL SOLN 150 ML BTL PO SCH (08:28)
[2020-05-24] MEDS: FENOFIBRATE: ORDER AWAITING ACTION SCH ×3 (08:29→22:22)
[2020-05-24] MEDS: INSULIN ASPART 100 UNITS/ML 3 ML PEN SC SCH ×4 (08:31→21:01)
[2020-05-24 08:49] LABS: Basophils # (auto) 0.04 K/uL (0-0.2); Basophils % (auto) 0.3 %; Eosinophils # (auto) 0.12 K/uL (0-0.5); Eosinophils % (auto) 0.9 %; Hematocrit (blood only) 41.3 % (37-47); Hemoglobin 13.4 g/dL (12.0-16.0); Immature Granulocytes % (auto) 0.8 %; Mean Corpuscular Hemoglobin 28.3 pg (25-34); Mean Corpuscular Hgb Conc 32.4 g/dL (32-36); Mean Corpuscular Volume 87.3 fL (80-100); Monocytes # (auto) 0.74 K/uL (0.11-0.59); Monocytes % (auto) 5.6 %; Neutrophils # (auto) 9.12 K/uL (1.4-6.5); Neutrophils % (auto) 68.4 %; Platelet Count 228 K/uL (130-400); RDW Coefficient of Variation 15.2 % (11.5-14.5); RDW Standard Deviation 49.2 fL (36.4-46.3); Red Blood Count 4.73 M/uL (4.2-5.4); White Blood Count 13.32 K/uL (4.8-10.8)
[2020-05-24] MEDS ORDERED: Nursing to Pharmacy Communication SCH (09:00)
[2020-05-24 09:13] LABS: Albumin Level 2.7 gm/dl (3.4-5.0); BUN Creatinine Ratio 26.3 (10-20); Calcium 8.6 mg/dl (8.5-10.1); Creatinine Clr Calc Pharmacy 85.7 ml/min; Est GFR (African American) 75.3; Est GFR (Non-African American) 64.9; Magnesium 1.5 mg/dl (1.8-2.4); Potassium 3.9 mmol/L (3.5-5.1)
[2020-05-24] MEDS ORDERED: KETOROLAC TROMETHAMINE 15 MG/ML VIAL IV ONE (09:15)
[2020-05-24 09:16] LABS: Albumin Globulin Ratio 0.7 (0.9-2); Bilirubin,Total 0.6 mg/dl (0.2-1); Globulin 3.7 gm/dl (2.5-4.0); Phosphorus 4.4 mg/dl (2.5-4.9); Total Protein 6.4 gm/dl (6.4-8.2)
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
--- NOTE | 2020-05-24 10:30 | XRay Report ---
XR hand RT min 3V routine HISTORY: 55 years-old Female Concern for osteomyelitis chronic right hand pain COMPARISON: None TECHNIQUE: 3 views of the right hand FINDINGS: Mild multifocal osteoarthritis. No acute fracture, dislocation, osseous erosion or opaque foreign bod y. Mild soft tissue prominence of the dorsal hand. IMPRESSION: No acute fracture or osseous erosion. ACT 112: Negative or not required by law. The above report was generated using voice recognition software. It may contain grammatical, syntax o r spelling errors. Electronically signed by: Bethel Lazaro M.D. 05/24/2020 10:28 AM
[2020-05-24] MEDS: MAGNESIUM SULFATE / D5W 1 GM/100 ML BAG IV SCH ×2 (10:46→12:27)
--- NOTE | 2020-05-24 12:21 | Hospitalist Progress Note ---
Date of Service May 24, 2020 Assessment & Plan (1) Cellulitis of right upper extremity: Sara Horton is a 55 yo morbidly obese female with complex PMHx that includes T2DM (A1c 9.2), prior MRSA cellulitis, diabetic foot ulcers (follows with wound clinic), COPD (on 5L O2 at home, no PFTs), tobacco abuse, MICHAEL/OHS, HTN/HLD/CAD, previous [place] - admitted to [facility] on 05/23/2020 for RUE cellulitis that failed outpatient management with Augmentin/Doxycycline. RUE Cellulitis Failed outpatient management, XR hand w/o osteomyelitis. - continue Daptomycin/Cefepime for broad spectrum coverage - follow closely for decreased ROM - would do MRI at that time to evaluate for deep tissue/tendon abscess - trend CBC daily Diabetic Ulcer of Left Great Toe - wound care nurse consult, f/w wound clinic as outpatient T2DM - HbA1c 9.2 - Basal insulin/SSI while hospitalized COPD - continue home inhalers HTN - continue Lopressor/Lasix/Verapamil CAD - continue Aspirin/Plavix Hypothyroidism - continue Synthroid Restless Leg Syndrome - continue Pramipexole MICHAEL/OHS - CPAP QHS Bipolar/Depression/ADHD - continue home Abilify, Strattera, Cymbalta, Topamax, Trazodone FEN/GI: DM2 diet DVT Prophylaxis: SCDs Code Status: full code Disposition: med/surg (2) Diabetic ulcer of left great toe: (3) Tobacco abuse: (4) Type II diabetes mellitus, uncontrolled: (5) Hypertension: (6) Hypothyroidism: (7) Restless legs syndrome: (8) Severe obstructive sleep apnea-hypopnea syndrome: (9) DVT prophylaxis: Admission and Anticipated Discharge Date Admission Date: May 23, 2020 Supervising Physician Co-Signing Physician Notes I personally examined the patient and verified all mahmood points of history and exam, discussed case, and agree with decision making with Dr Bustos. Hand feeling better than yesterday. Still hurts, still red, crepe box tender, still hurts with movement, but better. Vitals noted, in general she is awake and alert pleasant no distress. HEENT normocephalic atraumatic mucous membranes moist. Breathing unlabored no accessory muscle use good effort. Skin shows no rashes no pallor or icterus. Right hand with erythema that is somewhat tender on the dorsum/extensor surface. There is no crepitus, there is no underlying fluctuance. She does have a degree of pain with flexion extension at the fingers, but no restricted range of motion or stiffness. Head cellulitisfailing outpatient treatmentwith what she failed - ?resistant gram negative vs doxy resistant gram positive seem most likely. doing better on dapto/cefepime. continue for now. if doesn't improve significantly then MRI to eval for tendon infection/etc otherwise as above Subjective No acute events overnight. This morning patient reports that right hand swelling improved since starting outpatient abx but redness and pain have slightly worsened. Reports 9/10 pain in right hand that makes it hard for her to sleep. Denies discharge from rash. Denies fever/chills, chest pain, palpitations, SOB, N/V, abdominal pain, other rash. Review of Systems Review of Systems: Pertinent positives and negatives mentioned in HPI. Physical Exam Physical Exam: General: A&Ox3. NAD. Cooperative. Obese. HEENT: Atraumatic, normocephalic. Pulm: Decreased air entry bilaterally, -wheezes, -rales, -rhonchi. Symmetrical chest rise. No increase work of breathing. No respiratory distress. Cardiac: RRR, -mrg. Radial pulses intact and symmetrical. Abdominal: soft, non-tender, non-distended, BS x 4 Skin: right dorsal hand with warm, erythematous rash extending to distal dorsal forearm, hand is moderately TTP but no tenderness in arm, no discharge, no red streaking up arm, no crepitus MSK: full active/passive ROM of right hand but with moderate pain Results & Data Results & Data ([facility]) Vital Signs (Past 12 Hours) Vital Signs Temp Pulse Resp BP Pulse Ox 05/24/20 07:28 36.3 C L 66 18 109/70 99 Resident Activity Tracking Resident Involvement: Resident Care Provided Care Provided: Adult Hospital Medicine
[2020-05-24] MEDS: DAPTOmycin 325 MG in SYRINGE 0 ML IV SCH (17:37)
--- NOTE | 2020-05-24 19:07 | Billing Data ---
Date of Service May 24, 2020 Coding Level of Care Code 04367 Subseq Obs Care Lvl 3
[2020-05-24] MEDS: ATOMOXETINE HCL 40 MG CAPSULE PO SCH (21:00)
[2020-05-24] MEDS: CLOPIDOGREL BISULFATE 75 MG TAB PO SCH (21:00)
[2020-05-24] MEDS: traZODone HCL 50 MG TAB PO SCH (21:00)
[2020-05-24] MEDS: VERAPAMIL HCL 240 MG TABCR PO SCH (21:00)
[2020-05-24] MEDS: METOPROLOL TARTRATE 25 MG TAB PO SCH (21:01)
[2020-05-24] MEDS: INSULIN DETEMIR FLEXPEN/FLEX TOUCH 100 UNITS/ML 3ML SC SCH (21:01)
[2020-05-25] MEDS ORDERED: KETOROLAC TROMETHAMINE 15 MG/ML VIAL IV ONE ×2 (01:08→07:40)
[2020-05-25] MEDS: CEFEPIME 2,000 MG in SYRINGE 0 ML IV SCH ×2 (05:51→18:50)
[2020-05-25] MEDS: ACETAMINOPHEN 325 MG TAB PO PRN (05:58)
[2020-05-25] MEDS: LEVOTHYROXINE SODIUM 50 MCG TABLET PO SCH (05:59)
[2020-05-25] MEDS: NICOTINE 21 MG/24 HR TDSY TD SCH (06:01)
[2020-05-25 06:09] LABS: Basophils # (auto) 0.04 K/uL (0-0.2); Basophils % (auto) 0.3 %; Eosinophils # (auto) 0.16 K/uL (0-0.5); Eosinophils % (auto) 1.2 %; Hematocrit (blood only) 41.4 % (37-47); Hemoglobin 13.2 g/dL (12.0-16.0); Immature Granulocytes # (auto) 0.09 K/uL (0.00-0.02); Immature Granulocytes % (auto) 0.7 %; Lymphocytes # (auto) 2.69 K/uL (1.2-3.4); Mean Corpuscular Hgb Conc 31.9 g/dL (32-36); Mean Corpuscular Volume 87.7 fL (80-100); Mean Platelet Volume 9.9 fL (7.4-10.4); Monocytes # (auto) 0.67 K/uL (0.11-0.59); Monocytes % (auto) 5.2 %; Neutrophils # (auto) 9.18 K/uL (1.4-6.5); Neutrophils % (auto) 71.6 %; Platelet Count 198 K/uL (130-400); RDW Coefficient of Variation 14.9 % (11.5-14.5); RDW Standard Deviation 47.7 fL (36.4-46.3); Red Blood Count 4.72 M/uL (4.2-5.4); White Blood Count 12.83 K/uL (4.8-10.8)
[2020-05-25 06:40] LABS: BUN Creatinine Ratio 23.9 (10-20); Calcium 8.4 mg/dl (8.5-10.1); Est GFR (Non-African American) 55.3; Magnesium 2.3 mg/dl (1.8-2.4); Phosphorus 4.8 mg/dl (2.5-4.9); Potassium 3.6 mmol/L (3.5-5.1)
[2020-05-25] MEDS ORDERED: POTASSIUM CHLORIDE PWD 20 MEQ PACK PO STA (06:57)
[2020-05-25] MEDS: FENOFIBRATE: ORDER AWAITING ACTION SCH ×2 (07:33→15:38)
[2020-05-25] MEDS: DULoxetine HCL 30 MG CAP PO SCH (09:05)
[2020-05-25] MEDS: PANTOprazole 40 MG TAB PO SCH (09:05)
[2020-05-25] MEDS: LORATADINE/PSEUDOEPHEDRINE 1 TABCR PO SCH (09:05)
[2020-05-25] MEDS: MAGNESIUM OXIDE 400 MG TAB PO SCH (09:05)
[2020-05-25] MEDS: ARIPIprazole 1 MG/ML ORAL SOLN 150 ML BTL PO SCH (09:05)
[2020-05-25] MEDS: ASPIRIN 81 MG ECTAB PO SCH (09:05)
[2020-05-25] MEDS: GABAPENTIN 800 MG TAB PO SCH ×2 (09:05→14:09)
[2020-05-25] MEDS: DULoxetine HCL 60 MG CAP PO SCH (09:05)
[2020-05-25] MEDS: CHOLECALCIFEROL 1,000 UNITS 25 MCG TAB PO SCH (09:06)
[2020-05-25] MEDS: FUROSEMIDE 40 MG TAB PO SCH (09:06)
[2020-05-25] MEDS: DICLOFENAC SODIUM 25 MG TABDR PO SCH ×2 (09:06→17:40)
[2020-05-25] MEDS: PRAMIPEXOLE DIHYDROCHLO 0.5 MG TAB PO SCH (09:06)
[2020-05-25] MEDS: FAMOTIDINE 20 MG TAB PO SCH (09:06)
[2020-05-25] MEDS: TOPIRAMATE 50 MG TAB PO SCH (09:06)
[2020-05-25] MEDS: FLUTICASONE/VILANTEROL 200/25MCG 14 PUFFS/INHALER INH SCH (09:07)
[2020-05-25] MEDS: UMECLIDINIUM BROMIDE 62.5MCG/BLISTER 7 PUFFS/INHALER INH SCH (09:07)
[2020-05-25] MEDS: INSULIN ASPART 100 UNITS/ML 3 ML PEN SC SCH ×3 (09:15→17:42)
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
[2020-05-25] MEDS ORDERED: KETOROLAC TROMETHAMINE 15 MG/ML VIAL IV PRN (14:58)
--- NOTE | 2020-05-25 15:05 | Hospitalist Progress Note ---
Date of Service May 25, 2020 Assessment & Plan (1) Cellulitis of right upper extremity: Sara Horton is a 55 yo morbidly obese female with complex PMHx that includes T2DM (A1c 9.2), prior MRSA cellulitis, diabetic foot ulcers (follows with wound clinic), COPD (on 5L O2 at home, no PFTs), tobacco abuse, MICHAEL/OHS, HTN/HLD/CAD, previous [place] - admitted to [facility] on 05/23/2020 for RUE cellulitis that failed outpatient management with Augmentin/Doxycycline. RUE Cellulitis Failed outpatient management, XR hand w/o osteomyelitis. Suspect resistant bacterial cellulitis vs tenosynovitis based on worsening pain and persistence of symptoms. - continue Daptomycin/Cefepime for broad spectrum coverage - MRI right hand w/o contrast pending - trend CBC daily Diabetic Ulcer of Left Great Toe - wound care nurse consult, f/w wound clinic as outpatient T2DM - HbA1c 9.2 - Basal insulin/SSI while hospitalized COPD - continue home inhalers HTN - continue Lopressor/Lasix/Verapamil CAD - continue Aspirin/Plavix Hypothyroidism - continue Synthroid Restless Leg Syndrome - continue Pramipexole MICHAEL/OHS - CPAP QHS Bipolar/Depression/ADHD - continue home Abilify, Strattera, Cymbalta, Topamax, Trazodone Tobacco Use Disorder - counseled on smoking cessation FEN/GI: DM2 diet DVT Prophylaxis: SCDs Code Status: full code Disposition: med/surg Admission and Anticipated Discharge Date Admission Date: May 24, 2020 Supervising Physician Co-Signing Physician Notes I personally examined the patient and verified all mahmood points of history and exam, discussed case, and agree with decision making with Dr Bustos Subjective Required Toradol 15mg IV x2 overnight for 9/10 right hand pain. Reports worsening pain in comparison to yesterday. Denies fever/chills, chest pain, palpitations, SOB, N/V, abdominal pain, other rash. Review of Systems Review of Systems: Pertinent positives and negatives mentioned in HPI. Physical Exam Physical Exam: General: A&Ox3. NAD. Cooperative. Obese. HEENT: Atraumatic, normocephalic. Pulm: Decreased air entry bilaterally, -wheezes, -rales, -rhonchi. Symmetrical chest rise. No increase work of breathing. No respiratory distress. Cardiac: RRR, -mrg. Radial pulses intact and symmetrical. Abdominal: soft, non-tender, non-distended, BS x 4 Skin: right dorsal hand with warm, erythematous rash extending to distal dorsal forearm, hand is moderate-severe TTP with point tenderness in several carpal bon es/tendon sheath regions, but no tenderness in arm, no discharge, no red streaking up arm, no crepitus MSK: full active/passive ROM of right hand but with moderate pain Results & Data Results & Data ([facility]) Vital Signs (Past 12 Hours) Vital Signs Temp Pulse Resp BP Pulse Ox 05/25/20 09:12 125/73 05/25/20 07:15 36.4 C L 69 16 121/78 90 Resident Activity Tracking Resident Involvement: Resident Care Provided Care Provided: Adult Hospital Medicine
[2020-05-25] MEDS ORDERED: MELATONIN 3 MG TAB PO PRN (15:35)
--- NOTE | 2020-05-25 19:00 | Magnetic Resonance Report ---
MR hand RT wo con HISTORY: 55 years-old Female Cellulitis with progressive pain . Pain and swelling of the right hand with reported sialitis and diabetes COMPARISON: Right hand radiographs 05/24/2020 TECHNIQUE: Multiplanar multisequence MRI of the right hand was obtained without the use of IV contras t. FINDINGS: Motion degraded exam. Moderate dorsal subcutaneous edema. No discrete fluid collection. Trace fluid is noted within the fir st through fourth extensor compartments at the level of the carpus which may be physiologic or repres ent a mild tenosynovitis. The imaged flexor and extensor tendons are otherwise unremarkable. The visu alized ligaments appear intact. Normal appearance of the carpal tunnel, visualized median and ulnar n erves. Mild multifocal osteoarthritis. No acute fracture, dislocation, osseous erosion or marrow replacing p rocess. IMPRESSION: 1. Motion degraded exam. 2. Moderate diffuse dorsal subcutaneous edema suggestive of cellulitis. No abscess 3. No MR evidence of osteomyelitis. ACT 112: Negative or not required by law. The above report was generated using voice recognition software. It may contain grammatical, syntax o r spelling errors. Electronically signed by: Bethel Lazaro M.D. 05/25/2020 6:58 PM
[2020-05-25] MEDS: DAPTOmycin 325 MG in SYRINGE 0 ML IV SCH (19:16)
[2020-05-25] MEDS ORDERED: SULFAMETHOXAZOLE/TRIMETHOPRIM DS 800/160MG TAB PO STA (19:45)
--- NOTE | 2020-05-25 19:45 | Discharge Summary ---
Date of Service May 25, 2020 Admission HPI Per Admitting Provider Sara Horton is a 55 year old female smoker who presents to the ER on advice of wound care clinic due to worsening cellulitis of her right upper extremity despite Augmentin and Cefepime as an outpatient. She reports waking up with a rash 7 days ago on the back of her right hand with associated swelling. She was started on Augmentin and doxycycline on 05/16. Reportedly the erythema and swelling has spread from her fingers to right elbow. It has not extended beyond the right elbow. Is confined to the dorsal aspect of the forearm with no plantar involvement. She denies any fevers or chills. She was seen by the wound care clinic today and advised to go to the ER for IV antibiotics. She does note having a burn to the posterior left forearm however she does not feel the cellulitic area started from here. She reports this morning was 4 weeks ago and was healing well but had not fully healed. With the swelling this area has opened back up. She denies any recent change of medications other than the antibiotics and no use topical creams to this area. In the ER WBC was elevated with neutrophil count 10.46. She was diagnosed with cellulitis and started on vancomycin. She was referred to medicine for admission ongoing management of cellulitis with failed outpatient treatment. Principal Diagnosis Hand cellulitis, small question of mild tenosynovitis Discharge Exam In general she is awake and alert pleasant no distress. HEENT normocephalic atraumatic mucous membranes moist. Breathing unlabored no accessory muscle use good effort. Skin shows no rashes no pallor or icterus. Neuro shows no focal deficits. Specifically her right hand is distally neurovascularly intact. Earlier today she still has a degree of erythema and a little bit of pain with extension/range of motion, later in the day on reevaluation while the redness is the same everything seems very nontender and she is got full range of motion with very minimal tenderness. No crepitus no fluctuance. Discharge Data Allergies Allergy/AdvReac Type Severity Reaction Status Date / Time No Known Drug Allergies Allergy Verified 05/23/20 10:34 Consultations 05/23/20 13:50 ED Decision to Admit Stat Ordered Studies 05/25/20 08:07 MR hand RT wo con Urgent Diabetes Follow up Diabetes Follow-up Needed for HgbA1c >9% Hospital Course (1) Cellulitis of hand: RUE Cellulitis Failed outpatient management, XR hand w/o osteomyelitis. Suspect resistant bacterial cellulitis vs tenosynovitis based on worsening pain and persistence of symptoms. -Showed some improvement on cefepime and daptomycin. Patient very desirous of going home. Discussed concern on possible tenosynovitis. MRI checked with fairly equivocal results. On top of that throughout today her hand exam actually seems to have improved. Because of all of this, we discussed risks and benefits of staying for ongoing IV treatment and orthopedics consult versus discharge on p.o. antibiotics and very close outpatient follow-up. She understood risks and benefits, and strongly desired to go home. The infection itself did not seem consistent with Pseudomonas, more likely resistant staph or strep versus less likely gram-negative that happened to be resistant to Augmentin. Either way Bactrim should cover nicely with a different mechanism of action than the doxycycline and Augmentin she was on prior to admission. -Given possible tenosynovitis, and stubborn/refractory infection, will treat for 14 total days (12 of Bactrim). -Discussed with patient absolute need for close follow-up, discussed "checkpoints" which would raise concern that the questionable tenosynovitis on MRI was in fact real, and when we would want orthopedic referral. -Basic metabolic panel next week -Clinical evaluation in the office twice next week, then ongoing if needed -With all of this, stable for home with close outpatient follow-up Diabetic Ulcer of Left Great Toe -Outpatient wound follow-up T2DM - HbA1c 9.2 -Outpatient PCP follow-up, home meds, anticipate lifestyle change would probably make a positive difference COPD - continue home inhalers HTN - continue Lopressor/Lasix/Verapamil CAD - continue Aspirin/Plavix Hypothyroidism - continue Synthroid Restless Leg Syndrome - continue Pramipexole MICHAEL/OHS - CPAP QHS Bipolar/Depression/ADHD - continue home Abilify, Strattera, Cymbalta, Topamax, Trazodone Tobacco Use Disorder -Previously counseled on smoking cessation FEN/GI: DM2 diet DVT Prophylaxis: SCDs Code Status: full code Disposition: Stable for home as above Total Time Total Time Spent Total Time Spent (In Minutes): Greater than 30 Discharge Plan Discharge Items Patient Disposition: Home - Self-Care Reason For Visit: CELLULITIS,FAILED OUTPATIENT TREATMENT Discharge Diagnosis: cellulitis Activity: Resume your previous activity Non-emergency contact: Primary Care Provider Follow-up/Referrals: Swati Berger, [Primary Care Provider] - Diet: Carb Consistent or DM2 Addtl Attending Provider Instructions: Hand cellulitis -As we discussed, cellulitis is usually a "perfect storm" of the wrong bacteria, in the wrong place, at the wrong time. -Typically the infection starts either because bacteria again portal of entry through an open cut, or new bacteria that our immune system has yet to assimilate finds its way through microscopic breaks in the skin -Either way, once the bacteria is under the skin, it starts to grow, and use the area under the skin "like a Chencho dish" -In the modern world, unfortunately we have lots of different resistant bacteria, from chronic overuse of antibiotics over the last 70 years -Fortunately you have started to show improvement on the antibiotics we are using -We will send you home to complete 14 days of antibiotics with Bactrim. Bactrim covers almost all of the bacteria that we were covering with IV antibiotics, while obviously not as potent, but also does so by a different mechanism of killing bacteria than the antibiotics you were on previously. -As we discussed, one of our concerns for why the infection was so stubborn, would be if there was any degree of infection of the tendons that help you extend fingers. The MRI did note fluid in that areabut it was very mild and the radiologist commented that it either could simply be physiologic in response to the soft tissue swelling above the tendons, or a mild tendon infection. -Because of this situation, we definitely want to make sure that you get totally better. As we discussed, given that the MRI was a bit vague, and mild at worst, it does seem quite reasonable to try to treat with antibiotics alone and follow you closely, referring to orthopedics if you cross any "arbitrary lines in the sand" ----> Treatment will be with Bactrim (trimethoprimsulfamethoxazole) twice a day for 12 more days. Your next dose will be tomorrow morning. ----> We will want to followed closely (at least twice next week) at Dr. Berger's office ----> If you show no improvement by Friday, if you continue to improve but it plateaus without looking markedly better by the end of next week, if anything were to worsen, or if you were to show a pattern of getting almost totally better on antibiotics only to worsen once the antibiotics have been stopped, these would all be patterns that would suggest that the tendon infection was real/might require drainage. If you show any of the signs, then we would want she referred to orthopedic surgery. ----> As we discussed, while Bactrim is usually quite well-tolerated, occasionally in longer courses of treatment it can cause a temporary impact on the kidneys. Because of this, we would recommend you have lab work (basic metabolic panel) checked at Dr. Berger's office next week For pain control we will utilize Percocet and topical lidocaine. -Percocet, of course, has a lot of baggagenarcotic pain medicines can cause people to be groggy or sleepy, impaired judgment, cause constipation, and and unlucky souls physical dependency can actually happen relatively quickly. Because of this we will want you to minimize how much you need it, but in the early days of improvement from the infection, that can certainly hurt quite a bit. You can use the need for pain medicine as a reasonable barometer on how you are getting better. -Because the infected structures are so shallow, lidocaine cream will likely penetrate fairly well. While it is somewhat sloppy to apply, putting it on and leaving it on for about 45 minutes will likely do a surprisingly good job of dulling the pain by numbing the skin some. Pending Studies at Discharge: No Stand-Alone Forms: My [facility], Smoking Cessation Medications and DC Order Prescriptions: New sulfamethoxazole-trimethoprim [Bactrim DS] 800-160 mg tablet 1 tab PO BID 12 Days Qty: 24 RF: 0 oxycodone-acetaminophen [Percocet] 5-325 mg tablet 1 tab PO Q8H PRN (Reason: pain) Qty: 10 RF: 0 lidocaine 4 % cream 1 applic topical BID PRN (Reason: pain) Qty: 30 RF: 0 Continued gabapentin 600 mg tablet 800 mg PO TID RF: 0 topiramate 50 mg tablet 50 mg PO BID Qty: 60 RF: 0 magnesium oxide 400 mg (241.3 mg magnesium) tablet 400 mg PO BID Qty: 180 RF: 1 trazodone 50 mg tablet 50 mg PO DAILY Qty: 30 RF: 5 diclofenac sodium 50 mg tablet,delayed release (DR/EC) 50 mg PO BID Qty: 180 RF: 1 Victoza 3-Isidro 0.6 mg/0.1 mL (18 mg/3 mL) pen injector 1.8 mg SQ DAILY Qty: 9 RF: 2 atorvastatin [Lipitor] 80 mg tablet 40 mg PO BID Qty: 90 RF: 1 levothyroxine [Synthroid] 50 mcg tablet 50 mcg PO QAM Qty: 90 RF: 1 verapamil 240 mg tablet extended release 240 mg PO QPM Qty: 90 RF: 1 pantoprazole 40 mg tablet,delayed release (DR/EC) 40 mg PO DAILY 30 Days Qty: 30 RF: 2 clopidogrel [Plavix] 75 mg tablet 75 mg PO QPM Qty: 90 RF: 1 fenofibrate 160 mg tablet 160 mg PO QAM Qty: 90 RF: 1 metformin 1,000 mg tablet 1,000 mg PO BID Qty: 180 RF: 1 loratadine-pseudoephedrine [Claritin-D 24 Hour] 10-240 mg tablet extended release 24 hr 1 tab PO DAILY Qty: 30 RF: 0 furosemide 40 mg tablet 40 mg PO QAM RF: 0 aripiprazole 2 mg tablet 2 mg PO QAM RF: 0 atomoxetine [Strattera] 80 mg capsule 80 mg PO HS RF: 0 Vascepa 1 gram capsule 2 gm PO BID Qty: 120 RF: 3 metoprolol tartrate [Lopressor] 50 mg tablet 25 mg PO QPM Qty: 90 RF: 3 (DME) Portable Oxygen Misc See Rx Instructions .ROUTE .MEDSUPPLY Qty: 1 RF: 0 (DME) Oxygen Home Liters Per Minute See Rx Instructions .ROUTE .MEDSUPPLY Qty: 2 RF: 0 Spiriva Respimat 2.5 mcg/actuation mist 2 puff inhalation DAILY Qty: 4 RF: 2 Invokana 100 mg tablet 100 mg PO DAILY Qty: 30 RF: 2 nitroglycerin 0.4 mg tablet, sublingual 0.4 mg sublingual Q5M PRN (Reason: chest pain) Qty: 20 RF: 2 famotidine 20 mg tablet 20 mg PO DAILY RF: 0 (DME) pen needle, diabetic [BD Ultra-Fine Mini Pen Needle] 31 gauge x 3/16" needle See Rx Instructions .ROUTE .MEDSUPPLY RF: 0 Levemir FlexTouch U-100 Insuln 100 unit/mL (3 mL) insulin pen 80 unit SQ QPM RF: 0 amoxicillin-pot clavulanate [Augmentin] 875-125 mg tablet 1 tab PO BID 7 Days Qty: 14 RF: 0 doxycycline hyclate 100 mg capsule 100 mg PO BID 7 Days Qty: 14 RF: 0 duloxetine 30 mg capsule,delayed release(DR/EC) 30 mg PO QAM RF: 0 (DME) blood sugar diagnostic [OneTouch Verio test strips] Strip See Rx Instructions .ROUTE .MEDSUPPLY Qty: 150 RF: 6 (DME) blood-glucose meter [OneTouch Verio Meter] Misc See Rx Instructions [id number] .MEDSUPPLY Qty: 1 RF: 0 insulin aspart U-100 [Novolog Flexpen U-100 Insulin] 100 unit/mL (3 mL) insulin pen See Rx Instructions SQ .COMPLEX Qty: 15 RF: 6 albuterol sulfate 90 mcg/actuation HFA aerosol inhaler 2 puffs INH Q4H PRN (Reason: shortness of breath or wheezing) Qty: 8.5 RF: 0 Symbicort 160-4.5 mcg/actuation HFA aerosol inhaler 2 puff INHALATION BID RF: 0 prochlorperazine maleate 10 mg tablet 10 mg PO QID PRN (Reason: nausea and vomiting) Qty: 14 RF: 0 duloxetine 60 mg capsule,delayed release(DR/EC) 60 mg PO QAM RF: 0 cholecalciferol (vitamin D3) 50 mcg (2,000 unit) capsule 50 mcg PO QAM RF: 0 aspirin [Adult Aspirin Regimen] 81 mg tablet,delayed release (DR/EC) 81 mg PO DAILY Qty: 30 RF: 11 Iodosorb 0.9 % gel 40 g topical DAILY PRN (Reason: ..) RF: 0 pramipexole 0.5 mg tablet 0.5 mg PO DAILY RF: 0 Discharge Orders: Discharge Order (Routine); Ordered 05/25/20 Ordered By: Samuel Bravo Admission Data Admit Date/Time: 05/24/20 19:39 Attending Provider: Samuel Bravo Admit Provider: Ernesto Heard Primary Care Provider: Swati Berger Other Providers: Ernesto Heard Coding Level of Care Code D/C Day Management >30 mins Diagnoses Cellulitis of hand L03.119
== END 2020-05-25 20:29 | disposition home or self-care (01) ==
LOC: ED 11:21 → 2N 11:21 → SUATTDRO 14:41 → 2N 16:26 → 3E 05-24 22:17

== ENCOUNTER 2020-06-02 13:53 | Observation (INO) ==
[2020-06-02 14:49] LABS: Basophils % (auto) 0.8 %; Eosinophils # (auto) 0.17 K/uL (0-0.5); Eosinophils % (auto) 1.4 %; Hematocrit (blood only) 40.5 % (37-47); Hemoglobin 13.2 g/dL (12.0-16.0); Immature Granulocytes # (auto) 0.18 K/uL (0.00-0.02); Immature Granulocytes % (auto) 1.5 %; Lymphocytes # (auto) 2.93 K/uL (1.2-3.4); Mean Corpuscular Hemoglobin 28.8 pg (25-34); Mean Corpuscular Hgb Conc 32.6 g/dL (32-36); Mean Corpuscular Volume 88.2 fL (80-100); Mean Platelet Volume 9.8 fL (7.4-10.4); Monocytes % (auto) 6.6 %; Neutrophils # (auto) 8.01 K/uL (1.4-6.5); Neutrophils % (auto) 65.7 %; Platelet Count 328 K/uL (130-400); RDW Standard Deviation 51.3 fL (36.4-46.3); Red Blood Count 4.59 M/uL (4.2-5.4); White Blood Count 12.19 K/uL (4.8-10.8)
--- NOTE | 2020-06-02 14:59 | XRay Report ---
XR chest 1V portable CLINICAL HISTORY: Shortness of breath. COMPARISON STUDY: Chest CT October 22, 2017. Chest radiograph March 24, 2019. FINDINGS: Lung volumes are normal. Lungs are clear. There is no pneumothorax or pleural effusion. Car diac size is stable. Mediastinal contours are normal. There is no evidence for pulmonary edema. IMPRESSION: No acute cardiopulmonary findings. ACT 112: Negative or not required by law. Electronically signed by: Emeterio Dumont M.D. 06/02/2020 2:58 PM
[2020-06-02 15:13] LABS: Alanine Aminotransferase 16 U/L (12-78); Albumin Level 3.1 gm/dl (3.4-5.0); Aspartate Aminotransferase 30 U/L (15-37); BUN Creatinine Ratio 14.7 (10-20); Blood Urea Nitrogen 21 mg/dl (7-18); Calcium 9.1 mg/dl (8.5-10.1); Carbon Dioxide 31 mmol/L (21-32); Chloride 104 mmol/L (98-107); Creatinine Clr Calc Pharmacy 57.6 ml/min; Est GFR (African American) 47.7; Est GFR (Non-African American) 41.1; Glucose 105 mg/dl (70-99); Magnesium 1.9 mg/dl (1.8-2.4); Potassium 4.7 mmol/L (3.5-5.1); Sodium 138 mmol/L (136-145)
[2020-06-02 15:18] LABS: Albumin Globulin Ratio 0.6 (0.9-2); Alkaline Phosphatase 106 U/L (45-117); Bilirubin,Total 0.5 mg/dl (0.2-1); Globulin 5.2 gm/dl (2.5-4.0); Total Protein 8.3 gm/dl (6.4-8.2); Troponin I < 0.015 ng/ml (0-0.045)
[2020-06-02] MEDS ORDERED: MoRPHine SULFATE 4 MG/ML 1 ML CARP\\VIAL IV STA (16:13)
--- NOTE | 2020-06-02 16:26 | Electrocardiogram Report ---
Test Reason : Blood Pressure : / mmHG Vent. Rate : 073 BPM Atrial Rate : 073 BPM P-R Int : 160 ms QRS Dur : 090 ms QT Int : 416 ms P-R-T Axes : 031 038 038 degrees QTc Int : 458 ms Normal sinus rhythm Normal ECG When compared with ECG of 03-APR-2020 13:37, No significant change was found Confirmed by Mitul Ramon ([id number]) on 06/02/2020 4:26:11 PM Referred By: Confirmed By:Jacob Ramon
[2020-06-02 16:30] LABS: Partial Thromboplastin Time 25.1 Seconds (21.0-31.0); Prothrombin Time 10.6 Seconds (9.0-12.0)
[2020-06-02] MEDS ORDERED: DAPTOmycin 500 MG in SYRINGE 0 ML IV STA (16:45)
[2020-06-02] MEDS ORDERED: CEFEPIME 20 ML IV STA (16:46)
--- NOTE | 2020-06-02 17:23 | History & Physical Report ---
Date of Service June 02, 2020 Assessment & Plan (1) Cellulitis of right upper extremity: Ongoing for nearly 3 weeks. Improved on daptomycin/cefepime in the hospital last admission, but no improvement (and worsening) since then. - Restart prior daptomycin/cefepime - Orthopedics consulted -> Sheryl SANCHEZ has Dr. De Los Santos economic analysis director, so he will be good option given location of infection. - MRI hand ordered w/ & w/o contrast to assess change - Blood cultures ordered, though she does not appear septic, so I think yield will likely be quite low. (2) HAN (acute kidney injury): Baseline Cr. ~1.1, indicating CKD Stage III. - Cr now 1.4 on admission, likely from Bactrim, poor PO intake. - Hold home diclofenac & furosemide. Stop Bactrim - Gentle IV fluids x 1 liter - Monitor Cr (3) Chronic diastolic CHF (congestive heart failure): EF was 60 - 65% on echo on 02/21/2020. Presently appears euvolemic to slightly hypovolemic. - Hold home furosemide as above - Gentle IV fluids - Low threshold to stop fluids and restart home Lasix (4) Type II diabetes mellitus, uncontrolled: A1c was 9.2% during last admission. - Hold home oral meds and liraglutide - Lower home long-acting insulin to 60 units HS (from home 80 units HS) for possible NPO tomorrow - Sliding scale insulin - Glycemic pharmacist consulted given high insulin needs (5) Coronary artery disease: Last cath on 04/03/2020 with PCI x 2. No present chest pain. - Continue home DAPT given recent stenting. This may complicate need for surgery. - Consult cardiology to weigh in on any temporary holding of anti-platelet agents. - Continue beta-chris (why on metoprolol tartrate only once per day?), statin, fenofibrate - Continue omega-3s if brings it in (6) Hypertension: BP is 110/70 in the ED. - Continue home meds (7) Asthma: No present shortness of breath or wheezing on exam. - Continue home maintenance inhalers or hospital formulary - Albuterol PRN (8) Bipolar disorder: Euthymic mood and affect on exam today. - Continue home aripiprazole, duloxetine, pramipexole, topiramate, and trazodone - Hold home atomoxetine (unless brings it in) (9) Hypothyroidism: TSH was 3.0 in 02/2020. No signs/symptoms of hypo-/hyperthyroidism. - Continue home Synthroid 50 mcg (10) Severe obstructive sleep apnea-hypopnea syndrome: Per notes, she is on CPAP + 4L pass-in at night. - Continue (11) DVT prophylaxis: SCDs - Low DVT risk per admission calculator History of Present Illness Primary Care Provider: Swati Berger, DO 55yo F w/ hx of DM who presents with possible right hand tenosynovitis. Initially had swelling and redness on the hand around May 16. Had trialed Augmentin and doxycycline which did not improve it. She was admitted to the hospital on 05/23/2020 and started on daptomycin and cefepime. She reports by that time the redness had spread up her hand and past the elbow and involved some of the right triceps area. On the dapto/cefepime regimen, she reports improvement of the redness and pain. An MRI on 05/25 showed trace fluid is noted within the first through fourth extensor compartments at the level of the carpus which was read as physiologic vs. mild tenosynovitis. She requested discharge and was discharged on 05/25 on oral Bactrim with close PCP follow-up. She reports that the redness never really improved. On discharge, it was up her forearm and near the elbow. She reports this has stayed constant since then and 4 days ago began to peel like a sunburn. Her pain in the knuckles and fingers has actually increased and she can no longer make a fist. Her PCP advised her to see an orthopedic doctor, but she says when she called the [facility] orthopedists, she was told she did not need to see orthopedics and to follow up with her PCP, so she has not actually seen an orthopedic doctor. She denies any major systemic issues such as fevers/chills, nausea, vomiting, shortness of breath, etc. Allergies Allergy/AdvReac Type Severity Reaction Status Date / Time No Known Allergies Allergy Verified 06/02/20 16:11 Home Medications Medication Instructions Recorded Confirmed Type albuterol sulfate 2 puffs INH Q4H PRN #8.5 gm 10/28/17 06/02/20 Rx budesonide-formoterol HFA 160 2 puff INHALATION BID 10/05/18 06/02/20 History mcg-4.5 mcg/actuation aerosol inhaler duloxetine 30 mg capsule,delayed 30 mg PO QAM 10/09/18 06/02/20 History release prochlorperazine maleate 10 mg PO QID PRN #14 tab 03/24/19 06/02/20 Rx aripiprazole 2 mg tablet 2 mg PO QAM 08/11/19 06/02/20 History atomoxetine 80 mg capsule 80 mg PO HS 08/11/19 06/02/20 History icosapent ethyl 1 gram capsule 2 gm PO BID #120 cap 08/12/19 06/02/20 Rx blood sugar diagnostic #150 ea 08/30/19 06/02/20 Rx blood-glucose meter #1 ea 08/30/19 06/02/20 Rx insulin aspart U-100 100 unit/mL See Rx Instructions SQ .COMPLEX 08/30/19 06/02/20 Rx (3 mL) subcutaneous pen #15 ml topiramate 50 mg tablet 50 mg PO BID #60 tab 09/24/19 06/02/20 Rx magnesium oxide 400 mg (241.3 mg 400 mg PO BID #180 tab 10/22/19 06/02/20 Rx magnesium) tablet metoprolol tartrate 50 mg tablet 25 mg PO QPM #90 tab 10/25/19 06/02/20 Rx pen needle, diabetic 31 gauge x ea 10/25/19 06/02/20 History 3/16" cholecalciferol (vitamin D3) 50 mcg PO QAM 11/04/19 06/02/20 History duloxetine 60 mg PO QAM 11/04/19 06/02/20 History loratadine-pseudoephedrine ER 10 1 tab PO DAILY #30 tab 12/30/19 06/02/20 Rx mg-240 mg tablet,extended [id number] gabapentin 600 mg tablet 800 mg PO TID tab 12/31/19 06/02/20 History furosemide 40 mg tablet 40 mg PO QAM tab 01/03/20 06/02/20 History Portable Oxygen #1 ea 01/04/20 06/02/20 Rx nitroglycerin 0.4 mg sublingual 0.4 mg SUBLINGUAL Q5M PRN #20 tab 03/02/20 06/02/20 Rx tablet diclofenac sodium 50 mg 50 mg PO BID #180 tab 03/09/20 06/02/20 Rx tablet,delayed release Victoza 3-Isidro 0.6 mg/0.1 mL (18 1.8 mg SQ DAILY #9 ml NS 03/27/20 06/02/20 Rx mg/3 mL) subcutaneous pen injector canagliflozin 100 mg tablet 100 mg PO DAILY #30 tab 03/28/20 06/02/20 Rx aspirin [Adult Aspirin Regimen] 81 mg PO DAILY #30 tab 04/03/20 06/02/20 Rx Oxygen Home #2 l 04/11/20 06/02/20 Rx tiotropium bromide 2.5 2 puff INHALATION DAILY #4 g 04/11/20 06/02/20 Rx mcg/actuation mist for inhalation famotidine 20 mg tablet 20 mg PO DAILY tab 04/13/20 06/02/20 History atorvastatin 80 mg tablet 40 mg PO BID #90 tab 04/20/20 06/02/20 Rx levothyroxine 50 mcg tablet 50 mcg PO QAM #90 tab 04/21/20 06/02/20 Rx verapamil 240 mg tablet,extended 240 mg PO QPM #90 tab 04/21/20 06/02/20 Rx release pantoprazole 40 mg tablet,delayed 40 mg PO DAILY 30 Days #30 tab 05/15/20 06/02/20 Rx release insulin detemir U-100 100 unit/mL 80 unit SQ QPM box 05/16/20 06/02/20 History (3 mL) subcutaneous pen Iodosorb 40 g TOPICAL DAILY PRN 05/23/20 06/02/20 History pramipexole 0.5 mg PO DAILY 05/23/20 06/02/20 History clopidogrel 75 mg tablet 75 mg PO QPM #90 tab 05/24/20 06/02/20 Rx fenofibrate 160 mg tablet 160 mg PO QAM #90 tab 05/24/20 06/02/20 Rx metformin 1,000 mg tablet 1,000 mg PO BID #180 tab 05/24/20 06/02/20 Rx lidocaine 1 applic TOPICAL BID PRN #30 g 05/25/20 06/02/20 Rx oxycodone-acetaminophen [Percocet] 1 tab PO Q8H PRN #10 tab 05/25/20 06/02/20 Rx sulfamethoxazole-trimethoprim 1 tab PO BID 12 Days #24 tab 05/25/20 06/02/20 Rx [Bactrim DS] trazodone 50 mg PO HS 06/02/20 06/02/20 History Past Med/Surg History Medical History Asthma rare use PRN inh Bipolar disorder COPD (chronic obstructive pulmonary disease) with chronic bronchitis Coronary artery disease Follows with [facility] Depression with anxiety Diabetes mellitus, type 2 IDDM Diabetic peripheral neuropathy associated with type 2 diabetes mellitus Diabetic ulcer of left foot associated with type 2 diabetes mellitus, with fat layer exposed Dyslipidemia Gastritis Glaucoma Heart failure, systolic, due to CAD History of colon polyps History of heart attack (2008) x2, 2009 and 2009 Hypertension Hypothyroidism Insomnia Marijuana abuse Marijuana use Migraine headache Nocturnal hypoxia Obsessive compulsive disorder On home oxygen therapy 4 LPM cont Posttraumatic stress disorder Restless legs syndrome Severe obstructive sleep apnea-hypopnea syndrome CPAP + 4 LPM O2 Tobacco abuse Vitamin D deficiency Surgical History H/O heart artery stent x 3 H/O hernia repair (03/11/17) History of appendectomy History of x 2 History of cardiac catheterization 2008 - [place] - 2 stents 2009 [place] - 1 stent 2013 - [place] - angioplasty, no stents -- all caths done at [facility] in [place], [place] History of cholecystectomy History of colonoscopy most recent 11/11/19 [place] History of esophagogastroduodenoscopy (EGD) most recent 11/11/19 [facility] S/P cardiac catheterization Dr. Roblero - March 2019 and April 2019. S/P hysterectomy secondary to endometriosis S/P tonsillectomy Family History Father Diabetes Coronary heart disease Myocardial infarction Hypertension Mother Diabetes Coronary heart disease Hypertension Stroke Slow to wake up after anesthesia Brother Diabetes Grandmother (Maternal) Diabetes Myocardial infarction Hypertension Grandmother (Paternal) Coronary heart disease Denies family history of Ovarian cancer Prostate cancer Breast cancer Lung cancer Colorectal cancer Social History Smoking Status: Current every day smoker Tobacco Type: Cigarettes Second Hand Exposure: No; Hx Alcohol Use: No Hx Substance Use: No Preferred Language: Tunisian Communication Ability: Effective Visual Impairment: No Limitations Hearing Ability: Normal Construction Economist Required: No Beliefs That Will Affect Care: None marital status: Current Living Situation: Spouse current occupational status: unemployed Feels Safe at Home: Yes Childhood Exposure to Second-Hand Smoke: Yes caffeine: Yes (ice tea) during the past year weight has: other Dental Care, Regularly: Yes Physical Activity Frequency: 1-2 Times per Week Physical Activity Frequency Comment: swimming Seatbelt Use: always Sunscreen Use: No Assistive Devices: Glasses Review of Systems Review of Systems: All systems reviewed & are unremarkable except as noted in HPI & below Physical Exam Constitutional: WD/WN, vitals as above Eyes: EOM intact bilaterally; no conjunctival abnormality ENMT: external ear and nose normal, oropharynx normal Neck: trachea midline, no thyromegaly normal visual inspection Respiratory: normal respiratory effort, lungs clear to auscultation no respiratory distress Cardiovascular: RRR, no murmur, no edema Gastrointestinal (Abdomen): Inspection/Auscultation: abdomen normal to inspection; abdomen not distended Musculoskeletal: no cyanosis or clubbing, extremities motor strength 5/5 Skin: + rash (Scaled, peeling rash on right dorsum of hand, wrist, and up forearm.) and + erythema Neurologic: moves all extremities and awake Psychiatric: Orientation: alert, oriented to person and cooperative Results & Data Results & Data ([facility]) Vital Signs (Past 12 Hours) Vital Signs Temp Pulse Resp BP Pulse Ox 06/02/20 16:10 100 06/02/20 16:09 18 100 06/02/20 14:10 36.3 C L 78 20 110/71 100 Code Status & VTE Plan VTE Prophylaxis Plan VTE Prophylaxis will be ordered: Yes PG Care Time/CCT Total # of Minutes Spent Total Time Spent with Patient: Total time spent is greater than 50% in coordination of care (as documented) at patient's floor/unit and/or counseling patient: Coding Level of Care Code 21079 OBS Care - Level 3 Diagnoses Cellulitis of right upper extremity L03.113 HAN (acute kidney injury) N17.9 Chronic diastolic CHF (congestive heart failure) I50.32 Type II diabetes mellitus, uncontrolled E11.65 Coronary artery disease I25.10 Hypertension I10 Asthma J45.909 Bipolar disorder F31.9 Hypothyroidism E03.9 Severe obstructive sleep apnea-hypopnea syndrome G47.33 DVT prophylaxis Z29.9
--- NOTE | 2020-06-02 18:24 | Emergency Department Note ---
History of Present Illness General Chief complaint: Shortness of Breath/Dyspnea Stated complaint: RT ARM INFECTION,SOB Time Seen by Provider: 06/02/20 15:58 History of Present Illness Provider complaint: Right arm infection Onset (ago): month(s) 1 Location: upper extremity and right Maximum Pain Intensity: 8 Associated symptoms: + fever/chills and + rash; no chest pain, no headaches, no malaise, no nausea/vomiting, no seizure and no weakness 55-year-old female presents emergency department for right upper extremity infection. Patient states she has been dealing with this right upper extremity infection for the last month. She states she is seen wound care. She states she was recently admitted to the hospital and had IV antibiotics but was then discharged. Patient reports since being discharged the redness in her right hand has not improved and she has been having fevers. T-max 101. Patient states she saw her PCP who referred her to the emergency department. Patient states that she has COPD and is supposed to wears 5 L of oxygen at all time. Home Medications Medication Instructions Recorded Confirmed Type albuterol sulfate 2 puffs INH Q4H PRN #8.5 gm 10/28/17 06/02/20 Rx budesonide-formoterol HFA 160 2 puff INHALATION BID 10/05/18 06/02/20 History mcg-4.5 mcg/actuation aerosol inhaler duloxetine 30 mg capsule,delayed 30 mg PO QAM 10/09/18 06/02/20 History release prochlorperazine maleate 10 mg PO QID PRN #14 tab 03/24/19 06/02/20 Rx aripiprazole 2 mg tablet 2 mg PO QAM 08/11/19 06/02/20 History atomoxetine 80 mg capsule 80 mg PO HS 08/11/19 06/02/20 History icosapent ethyl 1 gram capsule 2 gm PO BID #120 cap 08/12/19 06/02/20 Rx blood sugar diagnostic #150 ea 08/30/19 06/02/20 Rx blood-glucose meter #1 ea 08/30/19 06/02/20 Rx insulin aspart U-100 100 unit/mL See Rx Instructions SQ .COMPLEX 08/30/19 06/02/20 Rx (3 mL) subcutaneous pen #15 ml topiramate 50 mg tablet 50 mg PO BID #60 tab 09/24/19 06/02/20 Rx magnesium oxide 400 mg (241.3 mg 400 mg PO BID #180 tab 10/22/19 06/02/20 Rx magnesium) tablet metoprolol tartrate 50 mg tablet 25 mg PO QPM #90 tab 10/25/19 06/02/20 Rx pen needle, diabetic 31 gauge x ea 10/25/19 06/02/20 History 3/16" cholecalciferol (vitamin D3) 50 mcg PO QAM 11/04/19 06/02/20 History duloxetine 60 mg PO QAM 11/04/19 06/02/20 History loratadine-pseudoephedrine ER 10 1 tab PO DAILY #30 tab 12/30/19 06/02/20 Rx mg-240 mg tablet,extended [id number] gabapentin 600 mg tablet 800 mg PO TID tab 12/31/19 06/02/20 History furosemide 40 mg tablet 40 mg PO QAM tab 01/03/20 06/02/20 History Portable Oxygen #1 ea 01/04/20 06/02/20 Rx nitroglycerin 0.4 mg sublingual 0.4 mg SUBLINGUAL Q5M PRN #20 tab 03/02/20 06/02/20 Rx tablet diclofenac sodium 50 mg 50 mg PO BID #180 tab 03/09/20 06/02/20 Rx tablet,delayed release Victoza 3-Isidro 0.6 mg/0.1 mL (18 1.8 mg SQ DAILY #9 ml NS 03/27/20 06/02/20 Rx mg/3 mL) subcutaneous pen injector canagliflozin 100 mg tablet 100 mg PO DAILY #30 tab 03/28/20 06/02/20 Rx aspirin [Adult Aspirin Regimen] 81 mg PO DAILY #30 tab 04/03/20 06/02/20 Rx Oxygen Home #2 l 04/11/20 06/02/20 Rx tiotropium bromide 2.5 2 puff INHALATION DAILY #4 g 04/11/20 06/02/20 Rx mcg/actuation mist for inhalation famotidine 20 mg tablet 20 mg PO DAILY tab 04/13/20 06/02/20 History atorvastatin 80 mg tablet 40 mg PO BID #90 tab 04/20/20 06/02/20 Rx levothyroxine 50 mcg tablet 50 mcg PO QAM #90 tab 04/21/20 06/02/20 Rx verapamil 240 mg tablet,extended 240 mg PO QPM #90 tab 04/21/20 06/02/20 Rx release pantoprazole 40 mg tablet,delayed 40 mg PO DAILY 30 Days #30 tab 05/15/20 06/02/20 Rx release insulin detemir U-100 100 unit/mL 80 unit SQ QPM box 05/16/20 06/02/20 History (3 mL) subcutaneous pen Iodosorb 40 g TOPICAL DAILY PRN 05/23/20 06/02/20 History pramipexole 0.5 mg PO DAILY 05/23/20 06/02/20 History clopidogrel 75 mg tablet 75 mg PO QPM #90 tab 05/24/20 06/02/20 Rx fenofibrate 160 mg tablet 160 mg PO QAM #90 tab 05/24/20 06/02/20 Rx metformin 1,000 mg tablet 1,000 mg PO BID #180 tab 05/24/20 06/02/20 Rx lidocaine 1 applic TOPICAL BID PRN #30 g 05/25/20 06/02/20 Rx oxycodone-acetaminophen [Percocet] 1 tab PO Q8H PRN #10 tab 05/25/20 06/02/20 Rx sulfamethoxazole-trimethoprim 1 tab PO BID 12 Days #24 tab 05/25/20 06/02/20 Rx [Bactrim DS] trazodone 50 mg PO HS 06/02/20 06/02/20 History Allergies Allergy/AdvReac Type Severity Reaction Status Date / Time No Known Allergies Allergy Verified 06/02/20 16:11 Past Med/Surg History Medical History Asthma rare use PRN inh Bipolar disorder COPD (chronic obstructive pulmonary disease) with chronic bronchitis Coronary artery disease Follows with [place] [facility] Depression with anxiety Diabetes mellitus, type 2 IDDM Diabetic peripheral neuropathy associated with type 2 diabetes mellitus Diabetic ulcer of left foot associated with type 2 diabetes mellitus, with fat layer exposed Dyslipidemia Gastritis Glaucoma Heart failure, systolic, due to CAD History of colon polyps History of heart attack (2008) x2, 2009 and 2010 Hypertension Hypothyroidism Insomnia Marijuana abuse Marijuana use Migraine headache Nocturnal hypoxia Obsessive compulsive disorder On home oxygen therapy 4 LPM cont Posttraumatic stress disorder Restless legs syndrome Severe obstructive sleep apnea-hypopnea syndrome CPAP + 4 LPM O2 Tobacco abuse Vitamin D deficiency Surgical History H/O heart artery stent x 3 H/O hernia repair (03/11/17) History of appendectomy History of x 2 History of cardiac catheter[place] 2008 - [place] - 2 stents 2009 - [place] - 1 stent 2013 - [place] - angioplasty, no stents -- all caths done at [facility] in [place], [place] History of cholecystectomy History of colonoscopy most recent 11/11/19 [place] History of esophagogastroduodenoscopy (EGD) most recent 11/11/19 [place] S/P cardiac catheterization Dr. Roblero - March 2019 and April 2019. S/P hysterectomy secondary to endometriosis S/P tonsillectomy Family History Father Diabetes Coronary heart disease Myocardial infarction Hypertension Mother Diabetes Coronary heart disease Hypertension Stroke Slow to wake up after anesthesia Brother Diabetes Grandmother (Maternal) Diabetes Myocardial infarction Hypertension Grandmother (Paternal) Coronary heart disease Denies family history of Ovarian cancer Prostate cancer Breast cancer Lung cancer Colorectal cancer Social History Smoking Status: Current every day smoker Tobacco Type: Cigarettes Second Hand Exposure: No; Hx Alcohol Use: No Hx Substance Use: No Preferred Language: Yemeni Communication Ability: Effective Visual Impairment: No Limitations Hearing Ability: Normal Television Program Director Required: No Beliefs That Will Affect Care: None marital status: Current Living Situation: Spouse current occupational status: unemployed Feels Safe at Home: Yes Childhood Exposure to Second-Hand Smoke: Yes caffeine: Yes (ice tea) during the past year weight has: other Dental Care, Regularly: Yes Physical Activity Frequency: 1-2 Times per Week Physical Activity Frequency Comment: swimming Seatbelt Use: always Sunscreen Use: No Assistive Devices: Glasses Review of Systems A total of 10 systems reviewed and were otherwise negative Physical Exam Vital Signs Vital Signs - 24 hr 06/02/20 14:10 06/02/20 14:14 06/02/20 16:09 Temperature 36.3 C L Temperature Source Temporal Artery Scan Pulse Rate 78 Respiratory Rate 20 18 Respiratory Effort / Characteristics Non-Labored Non-Labored Blood Pressure 110/71 Blood Pressure Mean 84 Pulse Oximetry 100 100 Oxygen Delivery Method Room Air Nasal Cannula Room Air Oxygen Flow Rate 5 Sepsis Recent Fever Within 48 Hours No Sepsis New/Unexplained Change in Mental Status N/A Sepsis Action Taken by Nursing No Action Required 06/02/20 16:10 Temperature Temperature Source Pulse Rate Respiratory Rate Respiratory Effort / Characteristics Blood Pressure Blood Pressure Mean Pulse Oximetry 100 Oxygen Delivery Method Room Air Oxygen Flow Rate Sepsis Recent Fever Within 48 Hours Sepsis New/Unexplained Change in Mental Status Sepsis Action Taken by Nursing Physical Exam GENERAL: She is oriented to person, place, and time. She appears well-developed and well-nourished. She does not appear distressed. HENT: Exam performed. -Head: Normocephalic and atraumatic. -Right Ear: External ear normal. No mastoid tenderness. -Left Ear: External ear normal. No mastoid tenderness. -Mouth/Throat: The oropharynx is clear and moist. No trismus in the jaw. No dental abscesses or uvula swelling. No oropharyngeal exudate or tonsillar abscesses. EYES: Conjunctivae and EOM are normal. Pupils are equal, round, and reactive to light. Right eye exhibits no discharge. Left eye exhibits no discharge. No scleral icterus. NECK: Normal range of motion. Neck supple. No JVD present. No spinous process tenderness present. No carotid bruit present. No rigidity. No tracheal deviation and normal range of motion present. No Brudzinski's sign and no Kernig's sign noted. CV: Normal rate, regular rhythm, normal heart sounds and intact distal pulses. There is no peripheral edema. Palpable radial pulses bue. PULM/CHEST: Effort normal and breath sounds normal. No respiratory distress. No stridor. She has no wheezes. She has no rales. -Chest Wall: She exhibits no tenderness. ABD: The abdomen is soft. Bowel sounds are normal. She has no distension. No mass is present. There is no tenderness. There is no rebound, no guarding, no Man's sign and no tenderness at McBurney's point. Rovsig negative MUSC/SKEL: Normal range of motion. No tenderness on palpation of the right upper extremity flexors or extensors. No pain with flexion or extension of the wrist. LYMPH: No cervical adenopathy. NEURO: She is alert and oriented to person, place, and time. She has normal strength. No cranial nerve deficit or sensory deficit. Coordination and gait normal. GCS eye subscore is 4. GCS verbal subscore is 5. GCS motor subscore is 6. Cerebellar tests wnl. SKIN: Warmth and erythema over the dorsum of the right wrist. Nikolsky negative. No vesicular lesions. PSYCH: She has a normal mood and affect. Behavior is normal. Judgment and thought content normal. Course Course 1557: The patient was evaluated in room A2. A complete history and physical exam was performed Cardiac monitoring: An order was placed for continuous cardiac monitoring. The monitor shows a rate of 80 with sinus rhythm Patient was seen during a time of high acuity and high volume during the COVID- 19 pandemic. Nursing triage protocols were set in place. Labs show a leukocytosis of 12.19. EMR reviewed. Patient was admitted to the [facility] from May 23 May 25, 2020. Per the discharge summary. The patient has been dealing with the wound care center for her worsening cellulitis. Patient was on Augmentin and cefepime as an outpatient however it did not improve. She was then started on Augmentin and doxycycline on May 162020 which also did not improve. Patient had a white blood cell count of 10.46 on May 23. She was started on vancomycin. Patient was switched to cefepime and daptomycin during her inpatient admission. She had an x-ray and MRI which did not show osteomyelitis. Patient was discharged on May 25 because she had a great desire to be discharged. She was discharged with prescription Bactrim. Patient states she never followed up with orthopedics. Clinically the patient does not have evidence of tenosynovitis. Given that the patient's cellulitis is not improving and she has been having fevers of 101 at home we will admit the patient to the hospitalist team. I discussed the case with Dr. [facility] hospitalist who will evaluate the patient. Administered Medications Discontinued Medications Daptomycin 500 mg/ Syringe 10 mls @ 0 mls/min IV NOW STA; Protocol Stop: 06/02/20 16:46 Last Admin: 06/02/20 17:41 Dose: 5 mls/min Documented by: [id number] Cefepime HCl (Maxipime) 20 mls @ 5 mls/min IV NOW STA Stop: 06/02/20 16:49 Last Admin: 06/02/20 17:41 Dose: 5 mls/min Documented by: [id number] Morphine Sulfate (Morphine Sulfate 4 Mg/Ml 1 Ml Carp\\Vial) 4 mg IV NOW STA Stop: 06/02/20 16:14 Last Admin: 06/02/20 16:36 Dose: 4 mg Documented by: [id number] Medical Decision Making Laboratory Data Result diagrams: 06/02/20 14:30 06/02/20 14:30 Lab Results 06/02/20 06/02/20 06/02/20 Range/Units 14:30 14:30 14:30 WBC 12.19 H (4.8-10.8) K/uL RBC 4.59 (4.2-5.4) M/uL Hgb 13.2 (12.0-16.0) g/dL Hct 40.5 (37-47) % MCV 88.2 (80-100) fL MCH 28.8 (25-34) pg MCHC 32.6 (32-36) g/dL RDW Std Deviation 51.3 H (36.4-46.3) fL RDW Coeff of Caitlin 16.0 H (11.5-14.5) % Plt Count 328 (130-400) K/uL MPV 9.8 (7.4-10.4) fL Immature Gran % (Auto) 1.5 % Neut % (Auto) 65.7 % Lymph % (Auto) 24.0 % Bland % (Auto) 6.6 % Eos % (Auto) 1.4 % Baso % (Auto) 0.8 % Neut # (Auto) 8.01 H (1.4-6.5) K/uL Lymph # (Auto) 2.93 (1.2-3.4) K/uL Bland # (Auto) 0.80 H (0.11-0.59) K/uL Eos # (Auto) 0.17 (0-0.5) K/uL Baso # (Auto) 0.10 (0-0.2) K/uL Immature Gran # (Auto) 0.18 H (0.00-0.02) K/uL PT Cancelled INR Cancelled APTT Cancelled PTT Ratio Cancelled Sodium 138 (136-145) mmol/L Potassium 4.7 (3.5-5.1) mmol/L Chloride 104 (98-107) mmol/L Carbon Dioxide 31 (21-32) mmol/L Anion Gap 3.0 (3-11) BUN 21 H (7-18) mg/dl Creatinine 1.43 H (0.6-1.2) mg/dl Est Cr Clr Drug Dosing 57.6 ml/min Est GFR ( Amer) 47.7 Est GFR (Non-Af Amer) 41.1 BUN/Creatinine Ratio 14.7 (10-20) Glucose 105 H (70-99) mg/dl Calcium 9.1 (8.5-10.1) mg/dl Magnesium 1.9 (1.8-2.4) mg/dl Total Bilirubin 0.5 (0.2-1) mg/dl AST 30 (15-37) U/L ALT 16 (12-78) U/L Alkaline Phosphatase 106 (45-117) U/L Troponin I < 0.015 (0-0.045) ng/ml Total Protein 8.3 H (6.4-8.2) gm/dl Albumin 3.1 L (3.4-5.0) gm/dl Globulin 5.2 H (2.5-4.0) gm/dl Albumin/Globulin Ratio 0.6 L (0.9-2) 06/02/20 Range/Units 15:59 WBC (4.8-10.8) K/uL RBC (4.2-5.4) M/uL Hgb (12.0-16.0) g/dL Hct (37-47) % MCV (80-100) fL MCH (25-34) pg MCHC (32-36) g/dL RDW Std Deviation (36.4-46.3) fL RDW Coeff of Caitlin (11.5-14.5) % Plt Count (130-400) K/uL MPV (7.4-10.4) fL Immature Gran % (Auto) % Neut % (Auto) % Lymph % (Auto) % Bland % (Auto) % Eos % (Auto) % Baso % (Auto) % Neut # (Auto) (1.4-6.5) K/uL Lymph # (Auto) (1.2-3.4) K/uL Bland # (Auto) (0.11-0.59) K/uL Eos # (Auto) (0-0.5) K/uL Baso # (Auto) (0-0.2) K/uL Immature Gran # (Auto) (0.00-0.02) K/uL PT 10.6 INR 1.0 APTT 25.1 PTT Ratio 1.0 Sodium (136-145) mmol/L Potassium (3.5-5.1) mmol/L Chloride (98-107) mmol/L Carbon Dioxide (21-32) mmol/L Anion Gap (3-11) BUN (7-18) mg/dl Creatinine (0.6-1.2) mg/dl Est Cr Clr Drug Dosing ml/min Est GFR ( Amer) Est GFR (Non-Af Amer) BUN/Creatinine Ratio (10-20) Glucose (70-99) mg/dl Calcium (8.5-10.1) mg/dl Magnesium (1.8-2.4) mg/dl Total Bilirubin (0.2-1) mg/dl AST (15-37) U/L ALT (12-78) U/L Alkaline Phosphatase (45-117) U/L Troponin I (0-0.045) ng/ml Total Protein (6.4-8.2) gm/dl Albumin (3.4-5.0) gm/dl Globulin (2.5-4.0) gm/dl Albumin/Globulin Ratio (0.9-2) Imaging Data Radiologist's Impression: Chest X-Ray 06/02/20 14:15 XR chest 1V portable CLINICAL HISTORY: Shortness of breath. COMPARISON STUDY: Chest CT October 22, 2017. Chest radiograph March 24, 2019. FINDINGS: Lung volumes are normal. Lungs are clear. There is no pneumothorax or pleural effusion. Cardiac size is stable. Mediastinal contours are normal. There is no evidence for pulmonary edema. IMPRESSION: No acute cardiopulmonary findings. ACT 112: Negative or not required by law. Electronically signed by: Emeterio Dumont M.D. 06/02/2020 2:58 PM MDM Narrative The patient was evaluated in room A2. A complete history and physical exam was performed Cardiac monitoring: An order was placed for continuous cardiac monitoring. The monitor shows a rate of 80 with sinus rhythm Patient was seen during a time of high acuity and high volume during the COVID- 19 pandemic. Nursing triage protocols were set in place. Labs show a leukocytosis of 12.19. EMR reviewed. Patient was admitted to the [facility] from May 23 May 25, 2020. Per the discharge summary. The patient has been dealing with the wound care center for her worsening cellulitis. Patient was on Augmentin and cefepime as an outpatient however it did not improve. She was then started on Augmentin and doxycycline on May 162020 which also did not improve. Patient had a white blood cell count of 10.46 on May 23. She was started on vancomycin. Patient was switched to cefepime and daptomycin during her inpatient admission. She had an x-ray and MRI which did not show osteomyelitis. Patient was discharged on May 25 because she had a great desire to be discharged. She was discharged with prescription Bactrim. Patient states she never followed up with orthopedics. Clinically the patient does not have evidence of tenosynovitis. Given that the patient's cellulitis is not improving and she has been having fevers of 101 at home we will admit the patient to the hospitalist team. I discussed the case with Dr. Nelson [facility] hospitalist who will evaluate the patient. Impression & Plan Cellulitis of right upper extremity Discharge Plan Visit Data Chief Complaint: Shortness of Breath/Dyspnea Stated Complaint: RT ARM INFECTION,SOB ED Provider: Kal Santiago Discharge Problem: Cellulitis of right upper extremity Patient Disposition: Being Evaluated by Hospitalist Forms Stand Alone Forms: [facility] Prescriptions Prescriptions: No Action gabapentin 600 mg tablet 800 mg PO TID RF: 0 topiramate 50 mg tablet 50 mg PO BID Qty: 60 RF: 0 magnesium oxide 400 mg (241.3 mg magnesium) tablet 400 mg PO BID Qty: 180 RF: 1 diclofenac sodium 50 mg tablet,delayed release (DR/EC) 50 mg PO BID Qty: 180 RF: 1 Victoza 3-Isidro 0.6 mg/0.1 mL (18 mg/3 mL) pen injector 1.8 mg SQ DAILY Qty: 9 RF: 2 atorvastatin [Lipitor] 80 mg tablet 40 mg PO BID Qty: 90 RF: 1 levothyroxine [Synthroid] 50 mcg tablet 50 mcg PO QAM Qty: 90 RF: 1 verapamil 240 mg tablet extended release 240 mg PO QPM Qty: 90 RF: 1 pantoprazole 40 mg tablet,delayed release (DR/EC) 40 mg PO DAILY 30 Days Qty: 30 RF: 2 clopidogrel [Plavix] 75 mg tablet 75 mg PO QPM Qty: 90 RF: 1 fenofibrate 160 mg tablet 160 mg PO QAM Qty: 90 RF: 1 metformin 1,000 mg tablet 1,000 mg PO BID Qty: 180 RF: 1 loratadine-pseudoephedrine [Claritin-D 24 Hour] 10-240 mg tablet extended release 24 hr 1 tab PO DAILY Qty: 30 RF: 0 furosemide 40 mg tablet 40 mg PO QAM RF: 0 aripiprazole 2 mg tablet 2 mg PO QAM RF: 0 atomoxetine [Strattera] 80 mg capsule 80 mg PO HS RF: 0 Vascepa 1 gram capsule 2 gm PO BID Qty: 120 RF: 3 metoprolol tartrate [Lopressor] 50 mg tablet 25 mg PO QPM Qty: 90 RF: 3 (DME) Portable Oxygen Misc See Rx Instructions .ROUTE .MEDSUPPLY Qty: 1 RF: 0 (DME) Oxygen Home Liters Per Minute See Rx Instructions .ROUTE .MEDSUPPLY Qty: 2 RF: 0 Spiriva Respimat 2.5 mcg/actuation mist 2 puff inhalation DAILY Qty: 4 RF: 2 Invokana 100 mg tablet 100 mg PO DAILY Qty: 30 RF: 2 nitroglycerin 0.4 mg tablet, sublingual 0.4 mg sublingual Q5M PRN (Reason: chest pain) Qty: 20 RF: 2 famotidine 20 mg tablet 20 mg PO DAILY RF: 0 (DME) pen needle, diabetic [BD Ultra-Fine Mini Pen Needle] 31 gauge x 3/16" needle See Rx Instructions .ROUTE .MEDSUPPLY RF: 0 Levemir FlexTouch U-100 Insuln 100 unit/mL (3 mL) insulin pen 80 unit SQ QPM RF: 0 duloxetine 30 mg capsule,delayed release(DR/EC) 30 mg PO QAM RF: 0 (DME) blood sugar diagnostic [OneTouch Verio test strips] Strip See Rx Instructions .ROUTE .MEDSUPPLY Qty: 150 RF: 6 (DME) blood-glucose meter [OneTouch Verio Meter] Misc See Rx Instructions [id number] .MEDSUPPLY Qty: 1 RF: 0 insulin aspart U-100 [Novolog Flexpen U-100 Insulin] 100 unit/mL (3 mL) insulin pen See Rx Instructions SQ .COMPLEX Qty: 15 RF: 6 albuterol sulfate 90 mcg/actuation HFA aerosol inhaler 2 puffs INH Q4H PRN (Reason: shortness of breath or wheezing) Qty: 8.5 RF: 0 Symbicort 160-4.5 mcg/actuation HFA aerosol inhaler 2 puff INHALATION BID RF: 0 prochlorperazine maleate 10 mg tablet 10 mg PO QID PRN (Reason: nausea and vomiting) Qty: 14 RF: 0 duloxetine 60 mg capsule,delayed release(DR/EC) 60 mg PO QAM RF: 0 cholecalciferol (vitamin D3) 50 mcg (2,000 unit) capsule 50 mcg PO QAM RF: 0 aspirin [Adult Aspirin Regimen] 81 mg tablet,delayed release (DR/EC) 81 mg PO DAILY Qty: 30 RF: 11 trazodone 50 mg tablet 50 mg PO HS RF: 0 Iodosorb 0.9 % gel 40 g topical DAILY PRN (Reason: DIRECTED) RF: 0 pramipexole 0.5 mg tablet 0.5 mg PO DAILY RF: 0 sulfamethoxazole-trimethoprim [Bactrim DS] 800-160 mg tablet 1 tab PO BID 12 Days Qty: 24 RF: 0 oxycodone-acetaminophen [Percocet] 5-325 mg tablet 1 tab PO Q8H PRN (Reason: pain) Qty: 10 RF: 0 lidocaine 4 % cream 1 applic topical BID PRN (Reason: pain) Qty: 30 RF: 0 Referrals Referrals: Swati Berger DO [Primary Care Provider] -
[2020-06-02 20:04] LABS: Influenza A virus by PCR Negative (Neg); Influenza B virus by PCR Negative (Neg); RSV by PCR Negative (Neg); SARS CoV2 RNA(COVID-19) InHosp NEGATIVE (Negative)
[2020-06-02] MEDS ORDERED: ALBUTEROL HFA 8 GM INHALER INH PRN (21:48)
[2020-06-02] MEDS ORDERED: DEXTROSE 50% 50 ML SYRINGE IV PRN (21:48)
[2020-06-02] MEDS ORDERED: ONDANSETRON INJ 2 MG/ML 2 ML VIAL IV PRN (21:48)
[2020-06-02] MEDS ORDERED: traMADol HCL 50 MG TABLET PO STA (21:48)
[2020-06-02] MEDS ORDERED: INSULIN DETEMIR FLEXPEN/FLEX TOUCH 100 UNITS/ML 3ML SQ SCH (21:48)
[2020-06-02] MEDS ORDERED: METOPROLOL TARTRATE 25 MG TAB PO SCH (21:48)
[2020-06-02] MEDS ORDERED: GLUCAGON FOR INJ 1 MG VIAL SQ PRN (21:48)
[2020-06-02] MEDS ORDERED: PROCHLORPERAZINE MALEATE 10 MG TAB PO PRN (21:48)
[2020-06-02] MEDS ORDERED: GLUCOSE 40% GEL 15 GM TUBE PO PRN (21:48)
[2020-06-02] MEDS ORDERED: CONSULT PHARMACY STA (21:48)
[2020-06-02] MEDS ORDERED: CARBOHYDRATES FOR HYPOGLYCEMIA PO PRN (21:48)
[2020-06-02] MEDS ORDERED: GLUCOSE 10 TABS/TUBE PO PRN (21:48)
[2020-06-02] MEDS ORDERED: PHARMACY GLYCEMIC MGMT CONSULT PRN (21:51)
[2020-06-02] MEDS: LACTATED RINGER'S 1,000 ML IV SCH (22:09)
[2020-06-02] MEDS: ATOMOXETINE HCL 40 MG CAPSULE PO SCH (23:04)
[2020-06-02] MEDS: GABAPENTIN 800 MG TAB PO SCH (23:05)
[2020-06-02] MEDS: TOPIRAMATE 50 MG TAB PO SCH (23:05)
[2020-06-02] MEDS: ATORVASTATIN 40 MG TAB PO SCH (23:06)
[2020-06-02] MEDS: VERAPAMIL HCL 240 MG TABCR PO SCH (23:08)
[2020-06-02] MEDS: INSULIN ASPART 100 UNITS/ML 3 ML PEN SC SCH (23:11)
[2020-06-02] MEDS: traZODone HCL 50 MG TAB PO SCH (23:27)
[2020-06-03] MEDS: traMADol HCL 50 MG TABLET PO PRN ×5 (01:41→22:28)
[2020-06-03] MEDS: ACETAMINOPHEN 325 MG TAB PO PRN ×2 (03:39→16:54)
[2020-06-03] MEDS: CEFEPIME 2,000 MG in SYRINGE 0 ML IV SCH ×2 (05:18→16:57)
[2020-06-03] MEDS: LEVOTHYROXINE SODIUM 50 MCG TABLET PO SCH (05:18)
[2020-06-03 07:32] LABS: Hemoglobin 12.4 g/dL (12.0-16.0); Mean Corpuscular Hemoglobin 28.5 pg (25-34); Mean Corpuscular Hgb Conc 31.8 g/dL (32-36); Mean Corpuscular Volume 89.7 fL (80-100); Mean Platelet Volume 9.4 fL (7.4-10.4); Platelet Count 313 K/uL (130-400); RDW Standard Deviation 52.1 fL (36.4-46.3); Red Blood Count 4.35 M/uL (4.2-5.4); White Blood Count 11.88 K/uL (4.8-10.8)
[2020-06-03 08:07] LABS: BUN Creatinine Ratio 17.4 (10-20); Calcium 8.7 mg/dl (8.5-10.1); Creatinine Clr Calc Pharmacy 63.2 ml/min; Est GFR (Non-African American) 46.6; Potassium 4.9 mmol/L (3.5-5.1)
[2020-06-03] MEDS: DULoxetine HCL 30 MG CAP PO SCH (08:44)
[2020-06-03] MEDS: GABAPENTIN 800 MG TAB PO SCH ×3 (08:44→21:03)
[2020-06-03] MEDS: DULoxetine HCL 60 MG CAP PO SCH (08:44)
[2020-06-03] MEDS: PRAMIPEXOLE DIHYDROCHLO 0.5 MG TAB PO SCH (08:45)
[2020-06-03] MEDS: PANTOprazole 40 MG TAB PO SCH (08:45)
[2020-06-03] MEDS: FENOFIBRATE NANOCRYSTALLIZED 145 MG TABLET PO SCH (08:45)
[2020-06-03] MEDS: FAMOTIDINE 20 MG TAB PO SCH (08:45)
[2020-06-03] MEDS: ASPIRIN 81 MG ECTAB PO SCH (08:46)
[2020-06-03] MEDS: ATORVASTATIN 40 MG TAB PO SCH ×2 (08:46→21:03)
[2020-06-03] MEDS: CLOPIDOGREL BISULFATE 75 MG TAB PO SCH (08:46)
[2020-06-03] MEDS: TOPIRAMATE 50 MG TAB PO SCH ×2 (08:46→21:03)
[2020-06-03] MEDS: ARIPIprazole 1 MG/ML ORAL SOLN 150 ML BTL PO SCH (08:47)
[2020-06-03] MEDS: FLUTICASONE/VILANTEROL 200/25MCG 14 PUFFS/INHALER INH SCH (08:47)
[2020-06-03] MEDS: UMECLIDINIUM BROMIDE 62.5MCG/BLISTER 7 PUFFS/INHALER INH SCH (08:47)
[2020-06-03] MEDS: INSULIN ASPART 100 UNITS/ML 3 ML PEN SC SCH ×4 (08:51→21:08)
[2020-06-03] MEDS: NICOTINE 21 MG/24 HR TDSY TD SCH (09:37)
[2020-06-03] MEDS: LACTATED RINGER'S 1,000 ML IV SCH ×2 (10:22→22:29)
--- NOTE | 2020-06-03 10:29 | Consultation Report ---
DATE OF CONSULTATION: 06/03/2020 ORTHOPEDIC HAND SURGERY CONSULTATION Special attention to right hand. HISTORY OF PRESENT ILLNESS: This is a 55-year-old female who is admitted with right hand pain and swelling, which has been present for 3 weeks. She was recently admitted to the hospital for this and did improve with daptomycin and cefepime, but she does note worsening symptoms as an outpatient. She is readmitted to the hospital and she has been started back on daptomycin and cefepime. To me, she denies any significant complaints of pain in the right upper extremity. PAST MEDICAL HISTORY: Includes 1. Diabetes with last hemoglobin A1c 9.2. 2. Chronic diastolic CHF. 3. Acute kidney failure. 4. Coronary artery disease. 5. Hypertension. 6. Bipolar disorder. 7. Asthma. 8. Hypothyroidism. 9. Severe chronic obstructive pulmonary disease. OBJECTIVE: Right hand exam does show a moderately scaly skin over the dorsal aspect of the hand and wrist. She has mild erythema, but no streaking erythema. She has no evidence of lymphadenopathy. She has no palpable effusion in the wrist joint. She has supple motion of the wrist joint. She has negative Kanavel signs and she has no evidence of septic flexor tenosynovitis or extensor tenosynovitis. She can fully flex and extend the digits without significant discomfort. I reviewed AP, lateral, oblique of the right hand, shows no evidence of osteomyelitis. I reviewed MRI, which does show mild edema and soft tissue consistent with cellulitis, but no evidence of deeper abscess or deeper tenosynovitis. ASSESSMENT: Right hand cellulitis. PLAN: At this point in time, she does appear to be improving and her examination is fairly benign. I did not see any surgical indications with her. Recommend continue antibiotics as per the hospitalist service. I did substance abuse counselor her that these infections can occur in the setting of poorly controlled diabetes. She is understanding of this. We will sign off; however, if her symptoms worsen or changes, feel free to call. EDEL
[2020-06-03] MEDS ORDERED: LORazepam 0.5 MG TAB PO PRN (10:39)
--- NOTE | 2020-06-03 12:01 | Pharmacy Report ---
Pharmacy Glycemic Short Note 2 - Date of Service June 03, 2020 - Glycemic Short BSG Results (Last 24 hours): 06/02/20 06/02/20 06/03/20 14:30 22:01 07:19 Glucose 105 H 133 H POC Glucose 147 H 06/03/20 08:03 Glucose POC Glucose 137 H OUTPATIENT ANTIDIABETIC REGIMEN: * Invokana 100 mg PO daily * Metformin 1000 mg PO BID * Victoza 1.8 mg SC daily * Levemir 80 units SC PM * Novolog SSI + 6 units w/ breakfast and lunch, 12 units w/ dinner * HbA1c = 9.2% (05/24/20) ASSESSMENT: * 55 yo F admitted secondary to R arm cellulitis. Pharmacy is consulted for assistance with inpatient glycemic management. * BSG was 147 mg/dL at HS last night. Patient was given 65 units of Levemir (~ 20% reduction in home dose). * Fasting BSG was 137 mg/dL. Will continue with current Novolog order and Levemir order. PLAN FOR INPATIENT GLYCEMIC CONTROL: * Hold outpatient oral diabetes medications * Basal insulin * Levemir 65 units SC HS * Bolus insulin * NovoLog per scale ACHS or Q6hrs while NPO * Goal Range: Low 110 mg/dL - High 140 mg/dL * Correction Factor: 15 mg/dL/unit * Nutritional / Prandial insulin per carb ratio of 1 unit per 4 grams CHO consumed PLAN FOR DISCHARGE: * To be determined
[2020-06-03] MEDS ORDERED: GADOBUTROL 65ML VIAL IV ONE (12:42)
--- NOTE | 2020-06-03 13:23 | Hospitalist Progress Note ---
Date of Service June 03, 2020 Assessment & Plan (1) Cellulitis of right upper extremity: 55yo female with complex PMH including poorly-controlled DM2 admitted with a three-week history of pain, swelling, and erythema of the right hand and forearm suspicious for cellulitis vs extensor tendon sheath tenosynovitis. Cellulitis, tenosynovitis of right extensor tendons -Previously admitted 05/23 with same presentation after failing outpatient management; discharged 05/25 with PO bactrim -MRI (06/03) with -Continue daptomycin and cefepime IV -Orthopedic surgery consulted, appreciate ongoing recommendations: -Surgery not indicated; continue antibiotics -Blood cultures pending -Note: has recently been on augmentin, doxycycline, daptomycin, cefepime, bactrim -CBC, BMP daily HAN, CKD stage III -Cr improved with IVF (1.29); baseline ~1.1 -Likely secondary to bactrim, poor PO intake -Holding home furosemide -Continue LR @ 80mL/hr HFpEF -CXR without acute findings -Echo (02/21/20) showed EF 60-65% -Holding home furosemide -Low threshold to stop IVF +/- restart lasix IDDM2 -A1c 9.2% last admission -Holding home oral meds, liraglutide -SSI -Glycemic consult placed, appreciate ongoing recommendations COPD -No SOB or wheezing, lungs CTABL on exam -Continue home meds CAD -Continue home meds HTN -Episodes of hypotension today without symptoms; low of 84/44 -Holding home metoprolol tartrate; HR stable 65-80s -Continue home verapamil -Continue to monitor HLD -Continue home meds Bipolar disorder -Patient has been euthymic this admission with pleasant affect, denies SI/HI -Continue home meds Nicotine dependence -2ppd smoker -Continue nicotine patch 21mg q24h Hypothyroidism -Continue home synthroid RLS -Continue home pramipexole FEN: heart healthy, carb-consistent diet, LR @ 80mL/hr Code status: full code DVT ppx: SCDs Isolation: contact Consults: orthopedic surgery (signed off) Dispo: med/surg (2) COPD (chronic obstructive pulmonary disease) with chronic bronchitis: (3) Tobacco abuse: (4) Chronic diastolic CHF (congestive heart failure): (5) Type II diabetes mellitus, uncontrolled: (6) Bipolar disorder: (7) Dyslipidemia: (8) Diabetes mellitus, type 2: (9) Asthma: (10) Coronary artery disease: (11) Severe obstructive sleep apnea-hypopnea syndrome: (12) Restless legs syndrome: (13) Hypertension: (14) Hypothyroidism: Admission and Anticipated Discharge Date Admission Date: June 02, 2020 Supervising Physician Co-Signing Physician Notes I also saw the patient with the resident physician and confirmed mahmood portions of the history and physical examination. Agree with the impression and plan as noted. Upon our exam this morning, she noted that the redness and swelling of her right upper extremity had improved since admission. At the time of our exam, her MRI was pending. Exam 96/62, 65, 18, 36.4, 95% on nasal cannula She is alert and oriented. No distress appreciated. Erythema of the posterior right hand and forearm; there is peeling and skin changes consistent with chronic inflammation, she has good house designer strength. Data White blood cell count improved, 12.19-11.88 Hemoglobin 12.4, platelet count 313 Creatinine improved from 1.43-1.29 PCR for COVID-19, influenza type A/type B, and RSV are all negative Chest x-ray on admission shows no acute findings. MRI of the right hand from today shows no acute bony abnormality, dorsal soft tissue swelling, and this is noted to be improved when compared to MRI dated 05/25/2020. Findings also consistent with a mild tenosynovitis of the extensor tendons, also improved from previous. Blood cultures from 06/02 are pending. Impression and plan Cellulitis, tenosynovitis of right extensor tendons, right upper extremity HAN with history of CKD stage III Chronic diastolic congestive heart failure (preserved left ventricular function) Diabetes, type II Coronary disease Hypertension Appreciate orthopedics consultation Continue cefepime and daptomycin; it looks as if the patient had worsened with p.o. Bactrim Monitor BMP and CBC Await blood cultures Continue other home medications Subjective Patient feels "okay" this morning - she reports left hand/arm pain and swelling are much better compared to yesterday. Requested and provided a nicotine patch this morning - said she felt much better when checking on her later in the day. Denies fever, sweats, chest pain, abdominal pain, nausea, vomiting, and joint pain. Reports her breathing is "just alright" but is at her baseline. No new symptoms or concerns. Review of Systems Review of Systems: See HPI Physical Exam Physical Exam: Constitutional: tired-appearing, no acute distress, cooperative, comfortable CV: regular rhythm, heart sounds distant Resp: no wheezes or crackles appreciated, no increased work of breathing GI: soft, nontender, nondistended MSK: right hand and wrist strength intact, tenderness to palpation of the dorsal right hand, wrist, and posterior forearm; minimal tenderness with hand house designer Skin: erythema, edema, and desquamation of the dorsal right hand, wrist, and posterior forearm extending, ending 5-10cm proximal to the elbow Neuro: AOx4, no focal neurological deficits appreciated Psych: cooperative, pleasant, appropriate rate, volume, and quantity of speech Results & Data Results & Data ([facility]) Vital Signs (Past 12 Hours) Vital Signs Temp Pulse Resp BP BP Pulse Ox 06/03/20 08:22 65 96/62 L 06/03/20 08:14 36.4 C L 70 18 84/44 L 86/46 L 95 Resident Activity Tracking Resident Involvement: Resident Care Provided Care Provided: Adult Hospital Medicine
[2020-06-03] MEDS: DAPTOmycin 500 MG in SYRINGE 0 ML IV SCH (13:36)
--- NOTE | 2020-06-03 14:53 | Magnetic Resonance Report ---
MRI OF THE RIGHT HAND COMBO CLINICAL HISTORY: Right hand pain. Clinical concern for tenosynovitis. COMPARISON STUDY: MRI of the right hand dated 05/25/2020. Radiographs of the right hand dated . TECHNIQUE: MRI of the right hand was performed using various T1 and T2-weighted and axial, sagittal, and coronal planes. Contrast-enhanced sequences are acquired following the IV administration of 12 cc of Gadavist. The examination is significantly compromised by motion artifact. FINDINGS: There is no evidence of fracture. Mild multifocal osteoarthritis is noted. There is no bony erosion or marrow replacement process. Dorsal soft tissue edema is noted deep to the marker at the s ite of interest. This is greatest overlying the fourth finger. There is nonspecific patchy abnormal e nhancement in this region. No organized/drainable fluid collection is identified. The visualized flex or and extensor tendons appear intact. There is trace fluid identified around the extensor tendons in the third, fourth, and fifth digits which may represent a mild tenosynovitis. This has improved as c ompared to 05/25/2020, as has the soft tissue edema. The regional musculature is grossly unremarkable. IMPRESSION: 1. Significantly motion compromised examination. 2. No acute bony abnormality is identified. 3. There is dorsal soft tissue swelling as above. Correlate clinically for evidence of cellulitis. Th is has improved as compared to 05/25/2020. 4. Findings suggest mild tenosynovitis of the extensor tendons as above. This has also improved from previous. Dictated: 06/03/2020 1:02 PM Transcribed: 06/03/2020 2:19 PM Svitlana [id number] [email or web address] Electronically signed by: Gerard Fontenot M.D. 06/03/2020 2:52 PM
[2020-06-03] MEDS ORDERED: INSULIN DETEMIR FLEXPEN/FLEX TOUCH 100 UNITS/ML 3ML SQ SCH (21:00)
[2020-06-03] MEDS: ATOMOXETINE HCL 40 MG CAPSULE PO SCH (21:03)
[2020-06-03] MEDS: VERAPAMIL HCL 240 MG TABCR PO SCH (21:03)
[2020-06-03] MEDS: traZODone HCL 50 MG TAB PO SCH (22:29)
[2020-06-04] MEDS: traMADol HCL 50 MG TABLET PO PRN ×4 (02:51→18:32)
[2020-06-04] MEDS: LEVOTHYROXINE SODIUM 50 MCG TABLET PO SCH (05:14)
[2020-06-04] MEDS: CEFEPIME 2,000 MG in SYRINGE 0 ML IV SCH ×2 (05:14→17:43)
[2020-06-04 06:43] LABS: Basophils # (auto) 0.05 K/uL (0-0.2); Basophils % (auto) 0.5 %; Eosinophils # (auto) 0.15 K/uL (0-0.5); Eosinophils % (auto) 1.5 %; Hematocrit (blood only) 39.1 % (37-47); Hemoglobin 12.1 g/dL (12.0-16.0); Immature Granulocytes # (auto) 0.13 K/uL (0.00-0.02); Immature Granulocytes % (auto) 1.3 %; Lymphocytes # (auto) 2.73 K/uL (1.2-3.4); Mean Corpuscular Hgb Conc 30.9 g/dL (32-36); Mean Corpuscular Volume 90.5 fL (80-100); Mean Platelet Volume 9.5 fL (7.4-10.4); Monocytes # (auto) 0.72 K/uL (0.11-0.59); Monocytes % (auto) 7.1 %; Neutrophils # (auto) 6.33 K/uL (1.4-6.5); Neutrophils % (auto) 62.6 %; Platelet Count 253 K/uL (130-400); RDW Coefficient of Variation 15.4 % (11.5-14.5); RDW Standard Deviation 51.4 fL (36.4-46.3); Red Blood Count 4.32 M/uL (4.2-5.4); White Blood Count 10.11 K/uL (4.8-10.8)
[2020-06-04 07:09] LABS: BUN Creatinine Ratio 18.2 (10-20); Calcium 8.7 mg/dl (8.5-10.1); Creatinine Clr Calc Pharmacy 72.2 ml/min; Est GFR (African American) 63.4; Est GFR (Non-African American) 54.7; Potassium 4.5 mmol/L (3.5-5.1)
[2020-06-04] MEDS: ARIPIprazole 1 MG/ML ORAL SOLN 150 ML BTL PO SCH (08:17)
[2020-06-04] MEDS: FAMOTIDINE 20 MG TAB PO SCH (08:18)
[2020-06-04] MEDS: FENOFIBRATE NANOCRYSTALLIZED 145 MG TABLET PO SCH (08:18)
[2020-06-04] MEDS: PRAMIPEXOLE DIHYDROCHLO 0.5 MG TAB PO SCH (08:18)
[2020-06-04] MEDS: ASPIRIN 81 MG ECTAB PO SCH (08:18)
[2020-06-04] MEDS: DULoxetine HCL 60 MG CAP PO SCH (08:19)
[2020-06-04] MEDS: DULoxetine HCL 30 MG CAP PO SCH (08:19)
[2020-06-04] MEDS: CLOPIDOGREL BISULFATE 75 MG TAB PO SCH (08:20)
[2020-06-04] MEDS: TOPIRAMATE 50 MG TAB PO SCH ×2 (08:20→20:39)
[2020-06-04] MEDS: PANTOprazole 40 MG TAB PO SCH (08:20)
[2020-06-04] MEDS: ATORVASTATIN 40 MG TAB PO SCH ×2 (08:20→20:39)
[2020-06-04] MEDS: GABAPENTIN 800 MG TAB PO SCH ×3 (08:21→20:39)
[2020-06-04] MEDS: NICOTINE 21 MG/24 HR TDSY TD SCH (08:21)
[2020-06-04] MEDS: FLUTICASONE/VILANTEROL 200/25MCG 14 PUFFS/INHALER INH SCH (08:22)
[2020-06-04] MEDS: UMECLIDINIUM BROMIDE 62.5MCG/BLISTER 7 PUFFS/INHALER INH SCH (08:22)
[2020-06-04] MEDS: INSULIN ASPART 100 UNITS/ML 3 ML PEN SC SCH ×4 (09:18→20:41)
[2020-06-04] MEDS ORDERED: LORazepam 0.5 MG TAB PO ONE (10:30)
[2020-06-04] MEDS: LACTATED RINGER'S 1,000 ML IV SCH ×2 (11:17→23:02)
[2020-06-04] MEDS: ACETAMINOPHEN 325 MG TAB PO PRN (11:44)
--- NOTE | 2020-06-04 13:13 | Hospitalist Progress Note ---
Date of Service June 04, 2020 Assessment & Plan (1) Cellulitis of right upper extremity: 55yo female with complex PMH including poorly-controlled DM2 admitted on 06/02/2020 for right hand cellulitis with extensor tendon sheath tenosynovitis - failed outpatient treatment twice. Cellulitis, tenosynovitis of right extensor tendons -Previously admitted 05/23 with same presentation after failing outpatient management; discharged 05/25 with PO bactrim -MRI (06/03) showing cellulitis with mild extensor tenosynovitis - stable from previous MRI 10 days ago -Continue daptomycin and cefepime IV -Orthopedic surgery consulted, appreciate recs -Blood cultures negative after 24 hours, continue to trend -Note: has recently been on augmentin, doxycycline, daptomycin, cefepime, bactrim -CBC, BMP daily HAN on CKD stage III, HAN resolved -Cr improved with IVF (1.13); baseline ~1.1 -Likely secondary to bactrim, poor PO intake -Holding home furosemide -Continue LR @ 80mL/hr HFpEF -CXR without acute findings -Echo (02/21/20) showed EF 60-65% -Holding home furosemide -Low threshold to stop IVF +/- restart lasix IDDM2 -A1c 9.2% last admission -Holding home oral meds, liraglutide -SSI -Glycemic consult placed, appreciate ongoing recommendations COPD -Continue home meds CAD -Continue home meds HTN -Episodes of hypotension today without symptoms; low of 84/44 -Holding home metoprolol tartrate; HR stable 65-80s -Continue home verapamil -Continue to monitor HLD -Continue home meds Bipolar disorder -Patient has been euthymic this admission with pleasant affect, denies SI/HI -Continue home meds Nicotine dependence -2ppd smoker -Continue nicotine patch 21mg q24h - added Varenicline 0.5 mg PO daily today Hypothyroidism -Continue home synthroid RLS -Continue home pramipexole FEN: heart healthy, carb-consistent diet, LR @ 80mL/hr Code status: full code DVT ppx: SCDs Isolation: contact Consults: orthopedic surgery Dispo: med/surg (2) COPD (chronic obstructive pulmonary disease) with chronic bronchitis: (3) Tobacco abuse: (4) Chronic diastolic CHF (congestive heart failure): (5) Type II diabetes mellitus, uncontrolled: (6) Bipolar disorder: (7) Dyslipidemia: (8) Diabetes mellitus, type 2: (9) Asthma: (10) Coronary artery disease: (11) Severe obstructive sleep apnea-hypopnea syndrome: (12) Restless legs syndrome: (13) Hypertension: (14) Hypothyroidism: Admission and Anticipated Discharge Date Admission Date: June 02, 2020 Supervising Physician Co-Signing Physician Notes I also saw the patient with the resident physician and confirmed mahmood portions of the history and physical examination. Agree with the impression and plan as noted. Upon our exam this morning, she notes slight increase in discomfort of her fingers when compared to yesterday. She thinks the swelling and erythema is about the same. Exam 144/71, 78, 16, 36.5, 98% (nasal cannula, 5 L) She is alert and oriented. No distress appreciated. Erythema of the posterior right hand and forearm looks about the same as yesterday; there is peeling and skin changes consistent with chronic inflammation. Her auto machinist strength is decreased compared to yesterday. Data White blood cell count improved, 10.11 Hemoglobin 12.1, platelet count 253 Sodium 138, potassium 4.5, BUN 21, creatinine 1.13 MRI of the right hand from yesterday shows no acute bony abnormality, dorsal soft tissue swelling, and this is noted to be improved when compared to MRI [place] 05/25/2020. Findings also consistent with a mild tenosynovitis of the extensor tendons, also improved from previous. Blood cultures from 06/02 are negative thus far. Impression and plan Cellulitis, tenosynovitis of right extensor tendons, right upper extremity HAN with history of CKD stage III Chronic diastolic congestive heart failure (preserved left ventricular function) Diabetes, type II Coronary disease Hypertension Erythema and edema looks better, slight increase in finger pain today but could just be relative to what time I saw her today with relation to her pain medication. Continue cefepime and daptomycin. Monitor BMP and CBC Await blood cultures Continue other home medications Subjective No acute events overnight. Patient reports more severe right hand pain today; is only able to flex or extend fingers minimally due to pain. Reports slight improvement in redness and swelling. Denies fever/chills, chest pain, palpitations, SOB, N/V, abdominal pain. Review of Systems Review of Systems: Pertinent positives and negatives mentioned in HPI. Physical Exam Physical Exam: General: A&Ox3. NAD. Cooperative. HEENT: Atraumatic, normocephalic. Pulm: CTAB A&P. -wheezes, -rales, -rhonchi. Symmetrical chest rise. No increase work of breathing. No respiratory distress. Cardiac: RRR, -mrg. Radial pulses intact and symmetrical. Abdominal: soft, non-tender, non-distended, BS x 4 Right hand: dressings on right dorsal hand and forearm that are c/d/i, dorsal hand is erythematous with minimal edema, severe TTP of 2nd/3rd/4th MC/C joints, minimal active/passive extension/flexion of MC/C joints due to pain Results & Data Results & Data ([facility]) Vital Signs (Past 12 Hours) Vital Signs Temp Pulse Resp BP Pulse Ox 06/04/20 08:06 36.4 C L 72 16 108/67 98 Resident Activity Tracking Resident Involvement: Resident Care Provided Care Provided: Adult Hospital Medicine
[2020-06-04] MEDS: VARENICLINE 1 MG TAB PO SCH (14:09)
[2020-06-04] MEDS: DAPTOmycin 500 MG in SYRINGE 0 ML IV SCH (14:10)
[2020-06-04] MEDS: VERAPAMIL HCL 240 MG TABCR PO SCH (20:39)
[2020-06-04] MEDS: traZODone HCL 50 MG TAB PO SCH (20:39)
[2020-06-04] MEDS: ATOMOXETINE HCL 40 MG CAPSULE PO SCH (20:39)
[2020-06-04] MEDS: INSULIN DETEMIR FLEXPEN/FLEX TOUCH 100 UNITS/ML 3ML SQ SCH (20:42)
[2020-06-05] MEDS: traMADol HCL 50 MG TABLET PO PRN ×4 (00:13→19:59)
[2020-06-05] MEDS: CEFEPIME 2,000 MG in SYRINGE 0 ML IV SCH ×2 (05:38→17:36)
[2020-06-05] MEDS: LEVOTHYROXINE SODIUM 50 MCG TABLET PO SCH (05:53)
[2020-06-05 07:34] LABS: Basophils # (auto) 0.08 K/uL (0-0.2); Basophils % (auto) 0.8 %; Eosinophils # (auto) 0.15 K/uL (0-0.5); Eosinophils % (auto) 1.5 %; Hematocrit (blood only) 38.8 % (37-47); Hemoglobin 12.4 g/dL (12.0-16.0); Immature Granulocytes # (auto) 0.08 K/uL (0.00-0.02); Immature Granulocytes % (auto) 0.8 %; Lymphocytes # (auto) 2.72 K/uL (1.2-3.4); Lymphocytes % (auto) 26.5 %; Mean Corpuscular Hemoglobin 28.5 pg (25-34); Mean Corpuscular Volume 89.2 fL (80-100); Mean Platelet Volume 9.5 fL (7.4-10.4); Monocytes # (auto) 0.74 K/uL (0.11-0.59); Monocytes % (auto) 7.2 %; Neutrophils # (auto) 6.48 K/uL (1.4-6.5); Neutrophils % (auto) 63.2 %; Platelet Count 261 K/uL (130-400); RDW Coefficient of Variation 15.1 % (11.5-14.5); Red Blood Count 4.35 M/uL (4.2-5.4); White Blood Count 10.25 K/uL (4.8-10.8)
--- NOTE | 2020-06-05 08:01 | Hospitalist Progress Note ---
Date of Service June 05, 2020 Assessment & Plan (1) Cellulitis of right upper extremity: 55yo female with complex PMH including poorly-controlled DM2 admitted on 06/02/2020 for right hand cellulitis with extensor tendon sheath tenosynovitis - failed outpatient treatment twice. Cellulitis, tenosynovitis of right extensor tendons -Previously admitted 05/23 with same presentation after failing outpatient management; discharged 05/25 with PO bactrim -MRI (06/03) showing cellulitis with mild extensor tenosynovitis - stable from previous MRI 10 days ago -Continue daptomycin and cefepime IV -Orthopedic surgery consulted no surgery recommended at present -Blood cultures negative after 48 hours, continue to trend -Note: has recently been on Augmentin, doxycycline, daptomycin, cefepime, Bactrim -CBC, BMP daily HAN on CKD stage III -Cr improved with IVF (1.13); baseline ~1.1 -Likely secondary to Bactrim, poor PO intake -Holding home furosemide -Tolerating p.o. intake well, IV fluids discontinued -Check BMP in a.m. HFpEF -CXR without acute findings -Echo (02/21/20) showed EF 60-65% -Holding home furosemide -Low threshold to stop IVF +/- restart lasix IDDM2 -A1c 9.2% last admission -Holding home oral meds, liraglutide -SSI -Glycemic consult placed, appreciate ongoing recommendations COPD -Continue home meds CAD -Continue home meds HTN -Episodes of hypotension today without symptoms; low of 84/44 -Holding home metoprolol tartrate; HR stable 65-80s -Continue home verapamil -Continue to monitor HLD -Continue home meds Bipolar disorder -Patient has been euthymic this admission with pleasant affect, denies SI/HI -Continue home meds Nicotine dependence -2ppd smoker -Continue nicotine patch 21mg q24h - added Varenicline 0.5 mg PO daily today Hypothyroidism -Continue home synthroid RLS -Continue home pramipexole FEN: heart healthy, carb-consistent diet, LR @ 80mL/hr Code status: full code DVT ppx: SCDs Isolation: contact Consults: orthopedic surgery Dispo: med/surg (2) COPD (chronic obstructive pulmonary disease) with chronic bronchitis: (3) Tobacco abuse: (4) Chronic diastolic CHF (congestive heart failure): (5) Type II diabetes mellitus, uncontrolled: (6) Bipolar disorder: (7) Dyslipidemia: (8) Diabetes mellitus, type 2: (9) Asthma: (10) Coronary artery disease: (11) Severe obstructive sleep apnea-hypopnea syndrome: (12) Restless legs syndrome: (13) Hypertension: (14) Hypothyroidism: Admission and Anticipated Discharge Date Admission Date: June 04, 2020 Supervising Physician Co-Signing Physician Notes I personally examined the patient and verified all mahmood points of history and exam, discussed case, and agree with decision making with Dr Fenton. Biggest problem is scaling and peeling of skin on her right handshe notes she has been washing and scrubbing it quite aggressively over the last week or so. Otherwise not much as far as pain. No other new complaints. Really wants to go home. Vitals noted, in general she is awake and alert pleasant no distress. HEENT normocephalic atraumatic mucous membranes moist. Right hand with diffuse dry scaly skin that improves almost immediately with moisturizing lotion, very dull faint pink and nonwarm areas of erythema limited only to the mid to distal extensor surface of her hand, in the very proximal portion of her phalanxes. Nontender, full range of motion, good strength. Cellulitis/tenosynovitisnot entirely sure if she has ongoing infection, or just residual inflammation, possibly with the visual appearance made worse by the dry scaling skin from aggressive washing. Having seen her at day of discharge the last time, if you take away the dry scaly skin, her situation looks much improved and is practically nontender. Difficult to gauge what it looks like in the interim, but at this point it does appear to be markedly better. Discussed given her long course with this, we should go a little bit slower and continue on the IVs for another day or soboth to allow ongoing treatment and to allow another day for reassessment. Check inflammatory markers as well. Does appear to be improving. Subjective Patient seen sitting at edge of bed this morning. She reports feeling overall well, no fever, nausea, or vomiting. She is mainly worried about how long she will have to stay in the hospital, says she would really like to get out before Friday. Tolerating p.o. well. Denies any symptoms except for mild tenderness in her right hand. Review of Systems Review of Systems: All systems reviewed & are unremarkable except as noted in Subjective Physical Exam Physical Exam: General: A&Ox3. NAD. Cooperative. HEENT: Atraumatic, normocephalic. Pulm: CTAB A&P. -wheezes, -rales, -rhonchi. Symmetrical chest rise. No increase work of breathing. No respiratory distress. Cardiac: RRR, -mrg. Radial pulses intact and symmetrical. Abdominal: soft, non-tender, non-distended, BS x 4 Right hand: dressings on right dorsal hand and forearm that are c/d/i, dorsal hand is erythematous with minimal edema, TTP of 2nd/3rd/4th MC/C joints, minimal active/passive extension/flexion of MC/C joints due to pain Results & Data Results & Data ([facility]) Vital Signs (Past 12 Hours) Vital Signs Temp Pulse Resp BP Pulse Ox 06/04/20 22:34 36.6 C 77 18 118/73 97 Resident Activity Tracking Resident Involvement: Resident Care Provided Care Provided: Adult Hospital Medicine
[2020-06-05 08:10] LABS: BUN Creatinine Ratio 13.9 (10-20); Calcium 8.8 mg/dl (8.5-10.1); Creatinine Clr Calc Pharmacy 66.9 ml/min; Est GFR (African American) 57.8; Est GFR (Non-African American) 49.8; Potassium 4.4 mmol/L (3.5-5.1)
--- NOTE | 2020-06-05 08:56 | Pharmacy Report ---
Pharmacy Glycemic Short Note 2 - Date of Service June 05, 2020 - Glycemic Short BSG Results (Last 24 hours): 06/04/20 06/04/20 06/04/20 12:01 17:37 20:05 Glucose POC Glucose 136 H 140 H 155 H 06/05/20 06/05/20 07:09 07:46 Glucose 121 H POC Glucose 118 H OUTPATIENT ANTIDIABETIC REGIMEN: * Metformin 1000 mg PO BID * Victoza 1.8 mg SC daily * Levemir 80 units SC PM * Novolog SSI + 6 units w/ breakfast and lunch, 12 units w/ dinner * Invokana 100 mg PO daily (this is a recent addition, patient didn't seem as familiar with this medication) * HbA1c = 9.2% (05/24/20) ASSESSMENT: 06/05/20 * BSGs well controlled yesterday at 106, 136, 140, and 155 mg/dL * Will continue currently ordered Novolog * Received 90 units of insulin (50 units of Levemir and 40 units of Novolog) * Fasting BSG of 118 mg/dL this morning * Will continue currently ordered Lantus * Continues on cefepime and daptomycin for right arm cellulitis/tenosynovitis 06/03/20 * 55 yo F admitted secondary to R arm cellulitis. Pharmacy is consulted for assistance with inpatient glycemic management. * BSG was 147 mg/dL at HS last night. Patient was given 65 units of Levemir (~ 20% reduction in home dose). * Fasting BSG was 137 mg/dL. Will continue with current Novolog order and Levemir order. PLAN FOR INPATIENT GLYCEMIC CONTROL: * Hold outpatient oral diabetes medications * Basal insulin - continue * Levemir 50 units SC HS * Bolus insulin - continue * NovoLog per scale ACHS or Q6hrs while NPO * Goal Range: Low 110 mg/dL - High 140 mg/dL * Correction Factor: 15 mg/dL/unit * Nutritional / Prandial insulin per carb ratio of 1 unit per 5 grams CHO consumed PLAN FOR DISCHARGE: * HbA1c of 9.2% is above goal of less than 7% * Suggest simplifying antidiabetic regimen - discontinue Invokana * Will make adjustments to insulin based on inpatient insulin needs
[2020-06-05] MEDS: NICOTINE 21 MG/24 HR TDSY TD SCH (09:05)
[2020-06-05] MEDS: GABAPENTIN 800 MG TAB PO SCH ×3 (09:06→21:15)
[2020-06-05] MEDS: PRAMIPEXOLE DIHYDROCHLO 0.5 MG TAB PO SCH (09:06)
[2020-06-05] MEDS: DULoxetine HCL 60 MG CAP PO SCH (09:06)
[2020-06-05] MEDS: PANTOprazole 40 MG TAB PO SCH (09:06)
[2020-06-05] MEDS: FAMOTIDINE 20 MG TAB PO SCH (09:06)
[2020-06-05] MEDS: FENOFIBRATE NANOCRYSTALLIZED 145 MG TABLET PO SCH (09:06)
[2020-06-05] MEDS: VARENICLINE 1 MG TAB PO SCH (09:06)
[2020-06-05] MEDS: TOPIRAMATE 50 MG TAB PO SCH ×2 (09:06→21:14)
[2020-06-05] MEDS: ASPIRIN 81 MG ECTAB PO SCH (09:07)
[2020-06-05] MEDS: DULoxetine HCL 30 MG CAP PO SCH (09:07)
[2020-06-05] MEDS: ARIPIprazole 1 MG/ML ORAL SOLN 150 ML BTL PO SCH (09:07)
[2020-06-05] MEDS: UMECLIDINIUM BROMIDE 62.5MCG/BLISTER 7 PUFFS/INHALER INH SCH (09:07)
[2020-06-05] MEDS: CLOPIDOGREL BISULFATE 75 MG TAB PO SCH (09:07)
[2020-06-05] MEDS: FLUTICASONE/VILANTEROL 200/25MCG 14 PUFFS/INHALER INH SCH (09:07)
[2020-06-05] MEDS: ATORVASTATIN 40 MG TAB PO SCH ×2 (09:07→21:14)
[2020-06-05] MEDS: INSULIN ASPART 100 UNITS/ML 3 ML PEN SC SCH ×4 (09:08→20:47)
[2020-06-05] MEDS: LACTATED RINGER'S 1,000 ML IV SCH (10:43)
[2020-06-05] MEDS: ACETAMINOPHEN 325 MG TAB PO PRN ×2 (10:43→17:49)
--- NOTE | 2020-06-05 11:09 | Cardiology Consultation ---
Date of Consultation June 05, 2020 Assessment & Plan (1) Coronary artery disease: -received 2 JIMENEZ in March this year. -patent mid LAD and mid LCx stents on recent cardiac catheterization. -would continue dual anti-platelet therapy without interruption. (2) Chronic diastolic CHF (congestive heart failure): -euvolemic at this time. (3) Hypertension: -adequate control on current regimen. (4) Dyslipidemia: -would continue atorvastatin. History of Present Illness Attending Physician: Samuel Bravo DO History of Present Illness Mrs. Horton is a 55-year-old female admitted on June 02 with a cellulitis of the right upper extremity. This consultation was ordered to determine whether dual platelet therapy should be continued. Of note, the patient is well known to me from the outpatient setting. The patient was admitted with a recurrent right upper extremity cellulitis which was refractory to outpatient therapy. She has been placed on intravenous antibiotics and has improved. The patient has longstanding history of coronary artery disease. She claims to have had 3 stents placed due to an acute coronary syndrome in the years 2008, 2009, and 2013. We have no details of those interventions. The patient was seen in my office on March 02 complaining of 3 episodes of possible angina pectoris. She was set up for dobutamine stress echocardiogram which was to be performed on March 23, however, patient's history at that time suggested crescendo angina pectoris. Radha York PA-C set her up for a cardiac catheterization which was performed by Dr. Roblero on April 03. This revealed a patent proximal LAD stent in a patent mid LCX stent. A 70% mid LAD stenosis received a JIMENEZ (3 x 12 mm [place] and a 99% distal LCx received an additional JIMENEZ (2.5 x 15 mm [place]). Other lesions included an 80% 1st diagonal stenosis and a 99% distal RCA stenosis. Since her return home, the patient has done well. She has not experienced any exertional angina pectoris or limiting dyspnea. She further denies syncope, presyncope, PND, orthopnea, palpitations, change in lower extremity edema, and claudication. Currently, patient is resting comfortably in bed without complaints. Past medical and surgical history 1. Coronary artery disease-see above 2. Hypertension 3. Hypercholesterolemia 4. Borderline LVH 5. Diastolic CHF 6. COPD 7. Diabetes mellitus 8. Diabetic neuropathy 9. Hypothyroidism 10. Obesity 11. Obstructive sleep apnea 12. Bipolar disorder 13. Glaucoma 14. Migraine headaches 15. PTSD 16. Vitamin-D deficiency 17. Restless leg syndrome 18. Cholecystectomy 19. Appendectomy 20. Hysterectomy 21. Tonsillectomy 22. Social history and lives with her Works as a cook at [employer] Quit tobacco use on April 22. Forty pack year history No alcohol Family history Mother at 73 from sepsis Father at 74 from unknown causes Review of systems A 10 point review systems was negative except for that described above. Allergies Allergy/AdvReac Type Severity Reaction Status Date / Time No Known Allergies Allergy Verified 06/02/20 16:11 Home Medications Medication Instructions Recorded Confirmed Type albuterol sulfate 2 puffs INH Q4H PRN #8.5 gm 10/28/17 06/02/20 Rx budesonide-formoterol HFA 160 2 puff INHALATION BID 10/05/18 06/02/20 History mcg-4.5 mcg/actuation aerosol inhaler duloxetine 30 mg capsule,delayed 30 mg PO QAM 10/09/18 06/02/20 History release prochlorperazine maleate 10 mg PO QID PRN #14 tab 03/24/19 06/02/20 Rx aripiprazole 2 mg tablet 2 mg PO QAM 08/11/19 06/02/20 History atomoxetine 80 mg capsule 80 mg PO HS 08/11/19 06/02/20 History icosapent ethyl 1 gram capsule 2 gm PO BID #120 cap 08/12/19 06/02/20 Rx blood sugar diagnostic #150 ea 08/30/19 06/02/20 Rx blood-glucose meter #1 ea 08/30/19 06/02/20 Rx insulin aspart U-100 100 unit/mL See Rx Instructions SQ .COMPLEX 08/30/19 06/02/20 Rx (3 mL) subcutaneous pen #15 ml topiramate 50 mg tablet 50 mg PO BID #60 tab 09/24/19 06/02/20 Rx magnesium oxide 400 mg (241.3 mg 400 mg PO BID #180 tab 10/22/19 06/02/20 Rx magnesium) tablet metoprolol tartrate 50 mg tablet 25 mg PO QPM #90 tab 10/25/19 06/02/20 Rx pen needle, diabetic 31 gauge x ea 10/25/19 06/02/20 History 3/16" cholecalciferol (vitamin D3) 50 mcg PO QAM 11/04/19 06/02/20 History duloxetine 60 mg PO QAM 11/04/19 06/02/20 History loratadine-pseudoephedrine ER 10 1 tab PO DAILY #30 tab 12/30/19 06/02/20 Rx mg-240 mg tablet,extended [id number] gabapentin 600 mg tablet 800 mg PO TID tab 12/31/19 06/02/20 History furosemide 40 mg tablet 40 mg PO QAM tab 01/03/20 06/02/20 History Portable Oxygen #1 ea 01/04/20 06/02/20 Rx nitroglycerin 0.4 mg sublingual 0.4 mg SUBLINGUAL Q5M PRN #20 tab 03/02/20 06/02/20 Rx tablet diclofenac sodium 50 mg 50 mg PO BID #180 tab 03/09/20 06/02/20 Rx tablet,delayed release Victoza 3-Isidro 0.6 mg/0.1 mL (18 1.8 mg SQ DAILY #9 ml NS 03/27/20 06/02/20 Rx mg/3 mL) subcutaneous pen injector canagliflozin 100 mg tablet 100 mg PO DAILY #30 tab 03/28/20 06/02/20 Rx aspirin [Adult Aspirin Regimen] 81 mg PO DAILY #30 tab 04/03/20 06/02/20 Rx Oxygen Home #2 l 04/11/20 06/02/20 Rx tiotropium bromide 2.5 2 puff INHALATION DAILY #4 g 04/11/20 06/02/20 Rx mcg/actuation mist for inhalation famotidine 20 mg tablet 20 mg PO DAILY tab 04/13/20 06/02/20 History atorvastatin 80 mg tablet 40 mg PO BID #90 tab 04/20/20 06/02/20 Rx levothyroxine 50 mcg tablet 50 mcg PO QAM #90 tab 04/21/20 06/02/20 Rx verapamil 240 mg tablet,extended 240 mg PO QPM #90 tab 04/21/20 06/02/20 Rx release pantoprazole 40 mg tablet,delayed 40 mg PO DAILY 30 Days #30 tab 05/15/20 06/02/20 Rx release insulin detemir U-100 100 unit/mL 80 unit SQ QPM box 05/16/20 06/02/20 History (3 mL) subcutaneous pen Iodosorb 40 g TOPICAL DAILY PRN 05/23/20 06/02/20 History pramipexole 0.5 mg PO DAILY 05/23/20 06/02/20 History clopidogrel 75 mg tablet 75 mg PO QPM #90 tab 05/24/20 06/02/20 Rx fenofibrate 160 mg tablet 160 mg PO QAM #90 tab 05/24/20 06/02/20 Rx metformin 1,000 mg tablet 1,000 mg PO BID #180 tab 05/24/20 06/02/20 Rx lidocaine 1 applic TOPICAL BID PRN #30 g 05/25/20 06/02/20 Rx oxycodone-acetaminophen [Percocet] 1 tab PO Q8H PRN #10 tab 05/25/20 06/02/20 Rx sulfamethoxazole-trimethoprim 1 tab PO BID 12 Days #24 tab 05/25/20 06/02/20 Rx [Bactrim DS] trazodone 50 mg PO HS 06/02/20 06/02/20 History Patient History Medical History Asthma rare use PRN inh Bipolar disorder COPD (chronic obstructive pulmonary disease) with chronic bronchitis Coronary artery disease Follows with [facility] Depression with anxiety Diabetes mellitus, type 2 IDDM Diabetic peripheral neuropathy associated with type 2 diabetes mellitus Diabetic ulcer of left foot associated with type 2 diabetes mellitus, with fat layer exposed Dyslipidemia Gastritis Glaucoma Heart failure, systolic, due to CAD History of colon polyps History of heart attack (2008) x2, 2009 and 2009 Hypertension Hypothyroidism Insomnia Marijuana abuse Marijuana use Migraine headache Nocturnal hypoxia Obsessive compulsive disorder On home oxygen therapy 4 LPM cont Posttraumatic stress disorder Restless legs syndrome Severe obstructive sleep apnea-hypopnea syndrome CPAP + 4 LPM O2 Tobacco abuse Vitamin D deficiency Surgical History H/O heart artery stent x 3 H/O hernia repair (03/11/17) History of appendectomy History of x 2 History of cardiac catheterization 2008 - [place] - 2 stents 2009 [place] - 1 stent 2013 - [place] - angioplasty, no stents -- all caths done at [facility] in [place], [place] History of cholecystectomy History of colonoscopy most recent 11/11/19 [facility] History of esophagogastroduodenoscopy (EGD) most recent 11/11/19 [facility] S/P cardiac catheterization Dr. Roblero - March 2019 and April 2019. S/P hysterectomy secondary to endometriosis S/P tonsillectomy Family History Father Diabetes Coronary heart disease Myocardial infarction Hypertension Mother Diabetes Coronary heart disease Hypertension Stroke Slow to wake up after anesthesia Brother Diabetes Grandmother (Maternal) Diabetes Myocardial infarction Hypertension Grandmother (Paternal) Coronary heart disease Denies family history of Ovarian cancer Prostate cancer Breast cancer Lung cancer Colorectal cancer Social History Smoking Status: Current every day smoker Tobacco Type: Cigarettes Second Hand Exposure: No; Do You Dip or Chew Tobacco: No; Tobacco Cessation Education Requested by Patient: No Hx Alcohol Use: No Hx Substance Use: No Preferred Language: Frisian Communication Ability: Effective Visual Impairment: No Limitations Hearing Ability: Normal Vice President Integrated Required: No Beliefs That Will Affect Care: None marital status: Current Living Situation: Spouse current occupational status: unemployed Other Information That Helps Us Care for You: No Feels Safe at Home: Yes Safety Concerns: Feels Safe At This Time Childhood Exposure to Second-Hand Smoke: Yes caffeine: Yes (ice tea) during the past year weight has: other Dental Care, Regularly: Yes Physical Activity Frequency: 1-2 Times per Week Physical Activity Frequency Comment: swimming Seatbelt Use: always Sunscreen Use: No Assistive Devices: Glasses Assistive Devices Comment: did not brign CPAP from home Physical Exam Physical Exam: In general this is an obese white female in no acute distress. HEENT exam is negative. Neck is supple with full carotid upstrokes. There are no carotid bruits. Jugular venous pressure is flat at 90. There is no thyromegaly. Cardiovascular exam reveals a regular rhythm with a normal S1 and S2. Heart sounds are distant. No obvious murmurs. Lungs are clear without rales, rhonchi, or wheezes. Abdomen is soft and nontender without bruits. Extremities reveal intact radial artery and posterior tibial pulses bilaterally. There is 1 to 2+ pedal and pretibial edema. Results & Data ([facility]) Vital Signs (Past 12 Hours) Vital Signs Temp Pulse Resp BP Pulse Ox 06/05/20 08:36 36.3 C L 72 16 120/74 99 Laboratory Results CBC notes hemoglobin 12.4, hematocrit 30.8, white count 10.25, platelet count [id number]. Electrolytes noted a sodium 135, potassium 4.4, chloride 103, bicarb 29, BUN 17, creatinine 1.22, and glucose of 121. Troponin I levels undetectable at less than 0.015. Diagnostic Findings EKG notes normal sinus rhythm without abnormalities. Chest x-ray shows no acute disease. PG Care Time/CCT Total # of Minutes Spent Total Time Spent with Patient: Total time spent is greater than 50% in coordination of care (as documented) at patient's floor/unit and/or counseling patient: Coding Level of Care Code 70223 Inpt Consult Level 4 Diagnoses Coronary artery disease I25.10 Chronic diastolic CHF (congestive heart failure) I50.32 Hypertension I10 Dyslipidemia E78.5
[2020-06-05] MEDS: TRIAMCINOLONE ACET 0.025% CR 15 GM TUBE EXT SCH ×2 (13:43→21:16)
[2020-06-05] MEDS: DAPTOmycin 500 MG in SYRINGE 0 ML IV SCH (13:43)
--- NOTE | 2020-06-05 18:33 | Billing Data ---
Date of Service June 05, 2020 Coding Level of Care Code 27431 Subseq Hosp Care Lvl 3
[2020-06-05] MEDS: INSULIN DETEMIR FLEXPEN/FLEX TOUCH 100 UNITS/ML 3ML SQ SCH (20:46)
[2020-06-05] MEDS: traZODone HCL 50 MG TAB PO SCH (21:14)
[2020-06-05] MEDS: VERAPAMIL HCL 240 MG TABCR PO SCH (21:14)
[2020-06-05] MEDS: ATOMOXETINE HCL 40 MG CAPSULE PO SCH (21:14)
[2020-06-06] MEDS: LEVOTHYROXINE SODIUM 50 MCG TABLET PO SCH (06:05)
[2020-06-06] MEDS: CEFEPIME 2,000 MG in SYRINGE 0 ML IV SCH (06:05)
--- NOTE | 2020-06-06 07:38 | Hospitalist Progress Note ---
Date of Service June 06, 2020 Assessment & Plan (1) Cellulitis of right upper extremity: 55yo female with complex PMH including poorly-controlled DM2 admitted on 06/02/2020 for right hand cellulitis with extensor tendon sheath tenosynovitis - failed outpatient treatment twice. Cellulitis, tenosynovitis of right extensor tendons -Previously admitted 05/23 with same presentation after failing outpatient management; discharged 05/25 with PO bactrim -MRI (06/03) showing cellulitis with mild extensor tenosynovitis - stable from previous MRI 10 days ago -Continue daptomycin and cefepime IV -Orthopedic surgery consulted no surgery recommended at present -Blood cultures negative after 48 hours, continue to trend -Note: has recently been on Augmentin, doxycycline, daptomycin, cefepime, Bactrim -CBC, BMP daily HAN on CKD stage III -Cr improved with IVF (1.13); baseline ~1.1 -Likely secondary to Bactrim, poor PO intake -Holding home furosemide -Tolerating p.o. intake well, IV fluids discontinued -Check BMP in a.m. HFpEF -CXR without acute findings -Echo (02/21/20) showed EF 60-65% -Holding home furosemide -Low threshold to stop IVF +/- restart lasix IDDM2 -A1c 9.2% last admission -Holding home oral meds, liraglutide -SSI -Glycemic consult placed, appreciate ongoing recommendations COPD -Continue home meds CAD -Continue home meds HTN -Episodes of hypotension today without symptoms; low of 84/44 -Holding home metoprolol tartrate; HR stable 65-80s -Continue home verapamil -Continue to monitor HLD -Continue home meds Bipolar disorder -Patient has been euthymic this admission with pleasant affect, denies SI/HI -Continue home meds Nicotine dependence -2ppd smoker -Continue nicotine patch 21mg q24h - added Varenicline 0.5 mg PO daily today Hypothyroidism -Continue home synthroid RLS -Continue home pramipexole FEN: heart healthy, carb-consistent diet Code status: full code DVT ppx: SCDs Isolation: contact Consults: orthopedic surgery Dispo: med/surg (2) COPD (chronic obstructive pulmonary disease) with chronic bronchitis: (3) Tobacco abuse: (4) Chronic diastolic CHF (congestive heart failure): (5) Type II diabetes mellitus, uncontrolled: (6) Bipolar disorder: (7) Dyslipidemia: (8) Diabetes mellitus, type 2: (9) Asthma: (10) Coronary artery disease: (11) Severe obstructive sleep apnea-hypopnea syndrome: (12) Restless legs syndrome: (13) Hypertension: (14) Hypothyroidism: Admission and Anticipated Discharge Date Admission Date: June 04, 2020 Review of Systems Review of Systems: All systems reviewed & are unremarkable except as noted in Subjective Physical Exam Physical Exam: General: A&Ox3. NAD. Cooperative. HEENT: Atraumatic, normocephalic. Pulm: CTAB A&P. -wheezes, -rales, -rhonchi. Symmetrical chest rise. No increase work of breathing. No respiratory distress. Cardiac: RRR, -mrg. Radial pulses intact and symmetrical. Abdominal: soft, non-tender, non-distended, BS x 4 Right hand: dorsal hand is erythematous without edema and has dry scaly skin that has improved from yesterday, no longer TTP at 2nd/3rd/4th MC/C joints, Full ROM Results & Data Results & Data ([facility]) Vital Signs (Past 12 Hours) Vital Signs Temp Pulse Resp BP BP Pulse Ox 06/05/20 21:51 36.7 C 76 16 109/69 100 06/05/20 20:44 127/72
[2020-06-06] MEDS ORDERED: TRIAMCINOLONE ACET 0.025% CR 15 GM TUBE EXT PRN (08:25)
[2020-06-06 09:01] LABS: C Reactive Protein 1.91 mg/dl (0-0.29); Calcium 9.2 mg/dl (8.5-10.1); Creatinine Clr Calc Pharmacy 77.7 ml/min; Est GFR (African American) 69.2; Est GFR (Non-African American) 59.7; Potassium 4.1 mmol/L (3.5-5.1)
[2020-06-06 09:13] LABS: Basophils % (auto) 0.8 %; Eosinophils # (auto) 0.16 K/uL (0-0.5); Eosinophils % (auto) 1.3 %; Hematocrit (blood only) 39.3 % (37-47); Hemoglobin 12.4 g/dL (12.0-16.0); Immature Granulocytes # (auto) 0.12 K/uL (0.00-0.02); Lymphocytes % (auto) 20.3 %; Mean Corpuscular Hemoglobin 27.9 pg (25-34); Mean Corpuscular Hgb Conc 31.6 g/dL (32-36); Mean Corpuscular Volume 88.5 fL (80-100); Mean Platelet Volume 9.3 fL (7.4-10.4); Monocytes # (auto) 0.91 K/uL (0.11-0.59); Monocytes % (auto) 7.4 %; Neutrophils # (auto) 8.54 K/uL (1.4-6.5); Neutrophils % (auto) 69.2 %; Platelet Count 279 K/uL (130-400); RDW Coefficient of Variation 14.8 % (11.5-14.5); RDW Standard Deviation 47.8 fL (36.4-46.3); Red Blood Count 4.44 M/uL (4.2-5.4); White Blood Count 12.33 K/uL (4.8-10.8)
[2020-06-06] MEDS: PANTOprazole 40 MG TAB PO SCH (09:43)
[2020-06-06] MEDS: DULoxetine HCL 30 MG CAP PO SCH (09:44)
[2020-06-06] MEDS: ARIPIprazole 1 MG/ML ORAL SOLN 150 ML BTL PO SCH (09:44)
[2020-06-06] MEDS: PRAMIPEXOLE DIHYDROCHLO 0.5 MG TAB PO SCH (09:44)
[2020-06-06] MEDS: CLOPIDOGREL BISULFATE 75 MG TAB PO SCH (09:44)
[2020-06-06] MEDS: FAMOTIDINE 20 MG TAB PO SCH (09:44)
[2020-06-06] MEDS: VARENICLINE 1 MG TAB PO SCH (09:44)
[2020-06-06] MEDS: GABAPENTIN 800 MG TAB PO SCH ×2 (09:45→13:59)
[2020-06-06] MEDS: ASPIRIN 81 MG ECTAB PO SCH (09:45)
[2020-06-06] MEDS: ATORVASTATIN 40 MG TAB PO SCH (09:46)
[2020-06-06] MEDS: FENOFIBRATE NANOCRYSTALLIZED 145 MG TABLET PO SCH (09:46)
[2020-06-06] MEDS: TOPIRAMATE 50 MG TAB PO SCH (09:46)
[2020-06-06] MEDS: UMECLIDINIUM BROMIDE 62.5MCG/BLISTER 7 PUFFS/INHALER INH SCH (09:47)
[2020-06-06] MEDS: FLUTICASONE/VILANTEROL 200/25MCG 14 PUFFS/INHALER INH SCH (09:47)
[2020-06-06] MEDS: DULoxetine HCL 60 MG CAP PO SCH (09:49)
[2020-06-06] MEDS: NICOTINE 21 MG/24 HR TDSY TD SCH (09:50)
[2020-06-06] MEDS: INSULIN ASPART 100 UNITS/ML 3 ML PEN SC SCH ×2 (09:51→12:59)
--- NOTE | 2020-06-06 13:10 | Discharge Summary ---
Date of Service June 06, 2020 Admission HPI Per Admitting Provider 55yo F w/ hx of DM who presents with possible right hand tenosynovitis. Initially had swelling and redness on the hand around May 16. Had trialed Augmentin and doxycycline which did not improve it. She was admitted to the hospital on 05/23/2020 and started on daptomycin and cefepime. She reports by that time the redness had spread up her hand and past the elbow and involved some of the right triceps area. On the dapto/cefepime regimen, she reports improvement of the redness and pain. An MRI on 05/25 showed trace fluid is noted within the first through fourth extensor compartments at the level of the carpus which was read as physiologic vs. mild tenosynovitis. She requested discharge and was discharged on 05/25 on oral Bactrim with close PCP follow-up. She reports that the redness never really improved. On discharge, it was up her forearm and near the elbow. She reports this has stayed constant since then and 4 days ago began to peel like a sunburn. Her pain in the knuckles and fingers has actually increased and she can no longer make a fist. Her PCP advised her to see an orthopedic doctor, but she says when she called the [facility] orthopedists, she was told she did not need to see orthopedics and to follow up with her PCP, so she has not actually seen an orthopedic doctor. She denies any major systemic issues such as fevers/chills, nausea, vomiting, shortness of breath, etc. Admission Exam Per Admitting Provider Constitutional: WD/WN, vitals as above Eyes: EOM intact bilaterally; no conjunctival abnormality ENMT: external ear and nose normal, oropharynx normal Neck: trachea midline, no thyromegaly normal visual inspection Respiratory: normal respiratory effort, lungs clear to auscultation no respiratory distress Cardiovascular: RRR, no murmur, no edema Gastrointestinal (Abdomen): Inspection/Auscultation: abdomen normal to inspection; abdomen not distended Musculoskeletal: no cyanosis or clubbing, extremities motor strength 5/5 Skin: + rash (Scaled, peeling rash on right dorsum of hand, wrist, and up forearm.) and + erythema Neurologic: moves all extremities and awake Psychiatric: Orientation: alert, oriented to person and cooperative Principal Diagnosis Tenosynovitis Discharge Exam General: A&Ox3. NAD. Cooperative. HEENT: Atraumatic, normocephalic. Pulm: CTAB A&P. -wheezes, -rales, -rhonchi. Symmetrical chest rise. No increase work of breathing. No respiratory distress. Cardiac: RRR, -mrg. Radial pulses intact and symmetrical. Abdominal: soft, non-tender, non-distended, BS x 4 Right hand: dorsal hand is erythematous with no edema, flaky dry skin on dorsum that is much improved from yesterday, No longer has TTP, Full active and passive extension/fexion Discharge Data Allergies Allergy/AdvReac Type Severity Reaction Status Date / Time No Known Allergies Allergy Verified 06/02/20 16:11 Consultations 06/02/20 16:13 ED Decision to Admit Stat 06/02/20 21:48 Consult Cardiology Routine Consult Orthopedic Surgery Routine Ordered Studies 06/03/20 21:48 MR hand RT wo/w con Routine Hospital Course (1) Cellulitis of right upper extremity: 55yo female with complex PMH including poorly-controlled DM2 admitted on 06/02/2020 for right hand cellulitis with extensor tendon sheath tenosynovitis - failed outpatient treatment twice. Cellulitis, tenosynovitis of right extensor tendons -Previously admitted 05/23 with same presentation after failing outpatient management; discharged 05/25 with PO bactrim -MRI (06/03) showing cellulitis with mild extensor tenosynovitis - stable from previous MRI - Treated during this admission with Daptomycin and cefepime IV -Orthopedic surgery consulted no surgery recommended -Blood cultures negative HAN on CKD stage III -Resolved with IVF -Likely secondary to Bactrim, poor PO intake - Held home Lasix HFpEF -CXR without acute findings -Echo (02/21/20) showed EF 60-65% -Held home furosemide Nicotine dependence -2ppd smoker -Continue nicotine patch 21mg q24h - added Varenicline 0.5 mg PO daily IDDM2 -A1c 9.2% last admission -Held home oral meds, liraglutide -SSI -Provided education on glycemic control and explained how important it is for general cardiovascular health as well as avoiding infections and lack of healing in the future COPD -Continue home meds CAD -Continue home meds HTN - Home meds - Stable during admission HLD -Continue home meds Bipolar disorder -Patient euthymic this admission with pleasant affect, denied SI/HI -Continued home meds Hypothyroidism -Continue home synthroid RLS -Continue home pramipexole FEN: heart healthy, carb-consistent diet Code status: full code Dispo: Home (2) COPD (chronic obstructive pulmonary disease) with chronic bronchitis: (3) Tobacco abuse: (4) Chronic diastolic CHF (congestive heart failure): (5) Type II diabetes mellitus, uncontrolled: (6) Bipolar disorder: (7) Dyslipidemia: (8) Diabetes mellitus, type 2: (9) Asthma: (10) Coronary artery disease: (11) Severe obstructive sleep apnea-hypopnea syndrome: (12) Restless legs syndrome: (13) Hypertension: (14) Hypothyroidism: Total Time Total Time Spent Total Time Spent (In Minutes): See attending attestation Discharge Plan Discharge Items Patient Disposition: Home - Self-Care Reason For Visit: RIGHT HAND TENOSYNOVITIS Discharge Diagnosis: Right hand cellulitis and tenosynovitis Activity: Per Instructions section Non-emergency contact: Primary Care Provider Call non-emergency contact if: your symptoms worsen and your temperature is above 101 Follow-up/Referrals: Swati Berger DO [Primary Care Provider] - 06/09/20 1:40 pm (Appointment with Lissa Dorado) Diet: Carb Consistent or DM2 and Heart Healthy Addtl Attending Provider Instructions: You were admitted to [facility] due to right hand cellulitis and tenosynovitis that had failed outpatient treatment twice. You are treated with IV antibiotics during admission and demonstrated significant improvement. It was found that you had considerable dermatitis on the dorsal aspect of the hand due to excessive handwashing. As such, we applied steroid ointment and recommend that you continue to use this for up to a week after discharge and apply moisturizing creams at home try to avoid excessive handwashing in the future. At this point we think that your hand infection is resolved and thus you will not be discharged with antibiotics. However, to avoid similar situations in the future we recommend that you work on controlling your blood sugar in the setting of your diabetes, as this can make it more difficult for your body to fight infection. Additionally, we recommend that you consider quitting smoking as this can also make it more difficult for your body to fight infection. For this, you were started on Chantix (also known as varenicline). We will send enough of this medication for a month of treatment. We recommend that you follow with your primary care provider to discuss ongoing care and treatment of your chronic conditions and make sure that there are no signs of recurring infection. You should also discuss ongoing help for smoking cessation. If you were to develop any severe symptoms such as high fever, chills, general malaise, nausea, vomiting, or any other signs of generalized infection please call your primary care provider or seek emergency care. Thank you for allowing us to participate in your care. Pending Studies at Discharge: No Stand-Alone Forms: My [facility], Smoking Cessation Medications and DC Order Prescriptions: New triamcinolone acetonide 0.025 % cream 1 applic topical BID PRN (Reason: rash) 7 Days Qty: 15 RF: 0 Chantix 1 mg Tablet 0.5 mg PO BID 30 Days Qty: 30 RF: 0 Continued gabapentin 600 mg tablet 800 mg PO TID RF: 0 topiramate 50 mg tablet 50 mg PO BID Qty: 60 RF: 0 magnesium oxide 400 mg (241.3 mg magnesium) tablet 400 mg PO BID Qty: 180 RF: 1 diclofenac sodium 50 mg tablet,delayed release (DR/EC) 50 mg PO BID Qty: 180 RF: 1 Victoza 3-Isidro 0.6 mg/0.1 mL (18 mg/3 mL) pen injector 1.8 mg SQ DAILY Qty: 9 RF: 2 atorvastatin [Lipitor] 80 mg tablet 40 mg PO BID Qty: 90 RF: 1 levothyroxine [Synthroid] 50 mcg tablet 50 mcg PO QAM Qty: 90 RF: 1 verapamil 240 mg tablet extended release 240 mg PO QPM Qty: 90 RF: 1 pantoprazole 40 mg tablet,delayed release (DR/EC) 40 mg PO DAILY 30 Days Qty: 30 RF: 2 clopidogrel [Plavix] 75 mg tablet 75 mg PO QPM Qty: 90 RF: 1 fenofibrate 160 mg tablet 160 mg PO QAM Qty: 90 RF: 1 metformin 1,000 mg tablet 1,000 mg PO BID Qty: 180 RF: 1 loratadine-pseudoephedrine [Claritin-D 24 Hour] 10-240 mg tablet extended release 24 hr 1 tab PO DAILY Qty: 30 RF: 0 furosemide 40 mg tablet 40 mg PO QAM RF: 0 aripiprazole 2 mg tablet 2 mg PO QAM RF: 0 atomoxetine [Strattera] 80 mg capsule 80 mg PO HS RF: 0 Vascepa 1 gram capsule 2 gm PO BID Qty: 120 RF: 3 metoprolol tartrate [Lopressor] 50 mg tablet 25 mg PO QPM Qty: 90 RF: 3 (DME) Portable Oxygen Misc See Rx Instructions .ROUTE .MEDSUPPLY Qty: 1 RF: 0 (DME) Oxygen Home Liters Per Minute See Rx Instructions .ROUTE .MEDSUPPLY Qty: 2 RF: 0 Spiriva Respimat 2.5 mcg/actuation mist 2 puff inhalation DAILY Qty: 4 RF: 2 Invokana 100 mg tablet 100 mg PO DAILY Qty: 30 RF: 2 nitroglycerin 0.4 mg tablet, sublingual 0.4 mg sublingual Q5M PRN (Reason: chest pain) Qty: 20 RF: 2 famotidine 20 mg tablet 20 mg PO DAILY RF: 0 (DME) pen needle, diabetic [BD Ultra-Fine Mini Pen Needle] 31 gauge x 3/16" needle See Rx Instructions .ROUTE .MEDSUPPLY RF: 0 Levemir FlexTouch U-100 Insuln 100 unit/mL (3 mL) insulin pen 80 unit SQ QPM RF: 0 duloxetine 30 mg capsule,delayed release(DR/EC) 30 mg PO QAM RF: 0 (DME) blood sugar diagnostic [OneTouch Verio test strips] Strip See Rx Instructions .ROUTE .MEDSUPPLY Qty: 150 RF: 6 (DME) blood-glucose meter [OneTouch Verio Meter] Misc See Rx Instructions [id number] .MEDSUPPLY Qty: 1 RF: 0 insulin aspart U-100 [Novolog Flexpen U-100 Insulin] 100 unit/mL (3 mL) insulin pen See Rx Instructions SQ .COMPLEX Qty: 15 RF: 6 albuterol sulfate 90 mcg/actuation HFA aerosol inhaler 2 puffs INH Q4H PRN (Reason: shortness of breath or wheezing) Qty: 8.5 RF: 0 Symbicort 160-4.5 mcg/actuation HFA aerosol inhaler 2 puff INHALATION BID RF: 0 prochlorperazine maleate 10 mg tablet 10 mg PO QID PRN (Reason: nausea and vomiting) Qty: 14 RF: 0 duloxetine 60 mg capsule,delayed release(DR/EC) 60 mg PO QAM RF: 0 cholecalciferol (vitamin D3) 50 mcg (2,000 unit) capsule 50 mcg PO QAM RF: 0 aspirin [Adult Aspirin Regimen] 81 mg tablet,delayed release (DR/EC) 81 mg PO DAILY Qty: 30 RF: 11 trazodone 50 mg tablet 50 mg PO HS RF: 0 Iodosorb 0.9 % gel 40 g topical DAILY PRN (Reason: DIRECTED) RF: 0 pramipexole 0.5 mg tablet 0.5 mg PO DAILY RF: 0 oxycodone-acetaminophen [Percocet] 5-325 mg tablet 1 tab PO Q8H PRN (Reason: pain) Qty: 10 RF: 0 lidocaine 4 % cream 1 applic topical BID PRN (Reason: pain) Qty: 30 RF: 0 Discontinued sulfamethoxazole-trimethoprim [Bactrim DS] 800-160 mg tablet 1 tab PO BID 12 Days Qty: 24 RF: 0 Discharge Orders: Discharge Order (Routine); Ordered 06/06/20 Ordered By: Olman Farias/Other Patient Handouts: Tendonitis and Tenosynovitis Admission Data Admit Date/Time: 06/04/20 15:48 Attending Provider: Samuel Bravo Admit Provider: Samuel Bustos Primary Care Provider: Swati Berger Other Providers: Toño Nelson ; Jamey Ramon ; Jamey De Los Santos Other Interventions: Discharge Summary Assessment (RN) Last Done: 06/06/20 13:55 Supervising Physician Co-Signing Physician Notes I personally examined the patient and verified all mahmood points of history and exam, discussed case, and agree with decision making with Dr Fenton. Hand feeling better, very much wants to go home. Skin improved with steroid lotions and moisturizer. Smokesinterested in quitting. Had very little understanding of how hyperglycemia would be affecting her. Vitals noted, in general she is awake and alert pleasant no distress. HEENT normocephalic atraumatic mucous membranes moist. Breathing unlabored no accessory muscle use good effort. neuro shows no focal deficits. Right hand with full range of motion and no tenderness, no crepitus, the scaling skin has improved dramatically with lotions since yesterday. Underneath is just an area of faint pinkness that is much smaller than any previous erythema that I observe during her prior hospital stay. Tenosynovitisdefinitely appears stable for home. By exam she really looks like she just has resolving inflammation, no longer infectious erythema. After revisiting her history, the peeling skin changes appear to have been because she was really washing her hand aggressively and likely caused an eczema-like dryness from the aggressive soap and scrubbing. Her inflammatory markers are all very reassuring. Her range of motion is good. Orthopedics evaluation revealed nothing surgical. I even wonder how much ongoing infection she truly had, given her situation with prior antibioticscertainly staph or strep would be the most likely culprits, but to have staph or strep that was simultaneously resistant to doxycycline and Bactrim would seem unlikely, and to have gram- negative's (unlikely at all) that would be Pseudomonas level as far as requiring treatment would also be quite unlikely. I wonder how much of the overall situation was just residual inflammation that was slow to resolve. At any rate, she appears quite stable for home. DM -uncontrolled. Discussed acutely high blood sugars causing immunosuppression, and long-term hyperglycemic vascular diseasediscussed how critical diet is in diabetes control, recommended postprandial glucose monitoring to learn from what she is eating that is driving her hyperglycemia. Tobacco abusediscussed extensively as welldiscussed the dire need for smoke cessation, particularly in the context of her coronary disease and overall vascular disease. She is contemplativeand was started on Chantix during her hospital stay and seems to be tolerating it well so far. Would continue this, discussed behavioral modifications, discussed the possible use of Wellbutrin as well. Stable for home Resident Activity Tracking Resident Involvement: Resident Care Provided Care Provided: Adult Hospital Medicine
[2020-06-06] MEDS: DAPTOmycin 500 MG in SYRINGE 0 ML IV SCH (13:59)
--- NOTE | 2020-06-06 14:35 | Pharmacy Report ---
Pharmacy Glycemic Short Note 2 - Date of Service June 06, 2020 - Glycemic Short BSG Results (Last 24 hours): 06/05/20 06/05/20 06/06/20 16:31 20:42 06:25 Glucose POC Glucose 114 H 126 H 139 H 06/06/20 06/06/20 06/06/20 07:53 08:12 12:12 Glucose 131 H POC Glucose 136 H 140 H OUTPATIENT ANTIDIABETIC REGIMEN: * Metformin 1000 mg PO BID * Victoza 1.8 mg SC daily * Levemir 80 units SC PM * Novolog SSI + 6 units w/ breakfast and lunch, 12 units w/ dinner * Invokana 100 mg PO daily (this is a recent addition, patient didn't seem as familiar with this medication) * HbA1c = 9.2% (05/24/20) ASSESSMENT: 06/05/20 * BSGs well controlled yesterday at 106, 136, 140, and 155 mg/dL * Will continue currently ordered Novolog * Received 90 units of insulin (50 units of Levemir and 40 units of Novolog) * Fasting BSG of 118 mg/dL this morning * Will continue currently ordered Lantus * Continues on cefepime and daptomycin for right arm cellulitis/tenosynovitis 06/03/20 * 55 yo F admitted secondary to R arm cellulitis. Pharmacy is consulted for assistance with inpatient glycemic management. * BSG was 147 mg/dL at HS last night. Patient was given 65 units of Levemir (~ 20% reduction in home dose). * Fasting BSG was 137 mg/dL. Will continue with current Novolog order and Levemir order. PLAN FOR INPATIENT GLYCEMIC CONTROL: * Hold outpatient oral diabetes medications * Basal insulin - continue * Levemir 50 units SC HS * Bolus insulin - continue * NovoLog per scale ACHS or Q6hrs while NPO * Goal Range: Low 110 mg/dL - High 140 mg/dL * Correction Factor: 15 mg/dL/unit * Nutritional / Prandial insulin per carb ratio of 1 unit per 5 grams CHO consumed PLAN FOR DISCHARGE: * HbA1c of 9.2% is above goal of less than 7%, however, patient's inpatient insulin needs inpatient have been less than outpatient and therefore difficult to adjust outpatient regimen based on these needs- may be d/t compliance or difference in diet. Per colleague's conversation wants to simplify insulin regimen- Invokanna appears to be recently added in March but was only for 30 day prescription. Unclear if patient actually taking at this time. Would have patient f/u with outpatient provider to discuss necessary changes.
--- NOTE | 2020-06-06 16:10 | Billing Data ---
Date of Service June 06, 2020 Coding Level of Care Code D/C Day Management >30 mins
[2020-06-07] MEDS ORDERED: VARENICLINE 1 MG TAB PO SCH (09:00)
[2020-06-11] MEDS ORDERED: VARENICLINE 1 MG TAB PO SCH (09:00)
== END 2020-06-06 15:21 | disposition home or self-care (01) ==
LOC: ED 13:53 → 3W 13:53 → SUATTDRO 16:48 → 3W 21:17 → SUATTDRO 06-04 15:48

== ENCOUNTER 2020-09-04 13:52 | Observation (INO) ==
[2020-09-04] MEDS ORDERED: ACETAMINOPHEN 1,000 MG/100 ML VIAL IV STA (14:06)
[2020-09-04] MEDS ORDERED: KETOROLAC TROMETHAMINE 15 MG/ML VIAL IV STA (14:06)
--- NOTE | 2020-09-04 14:13 | Emergency Department Note ---
Impression & Plan Hypotension, HAN (acute kidney injury), Dizziness, Hypomagnesemia ED Provider Note NAME: MARY BETH OLIVERA AGE: 55 SEX: F : 1965 ARRIVES VIA: Ambulance INFORMANT: [Patient] ED PROVIDER(S): [Gerard Cuba MD] CHIEF COMPLAINT: Dizziness HISTORY OF PRESENT ILLNESS: The patient is a 55-year-old female who has been dizzy and weak and lightheaded for about 1 weeks timeframe. She saw her doctor's office 3 days ago and had some blood work performed, she is not sure of the results. Patient was at the wound center today and her blood pressure was 80 over palp. She was sent to the ER for evaluation. Patient states that she has had diarrhea for 3 days. She thinks it may be from the Bactrim that was started 5 days ago. The Bactrim is for some wounds on her feet that are being cared for by the wound center. The patient denies any chest pain or shortness of breath. There is no abdominal pain. Her diarrhea has been loose and brown, not black or bloody. She has not had fever. The patient states that her blood pressure when she was at her doctor's office 3 days ago was also low in the 90s although, today, the blood pressure is even lower. REVIEW OF SYSTEMS: See HPI for pertinent positives and negatives. A total of ten systems were reviewed and were otherwise negative. PMHx/PSHx: See Below SOCIAL HISTORY: See Below. PHYSICAL EXAM: GENERAL: Patient is in no acute distress. HEENT: No acute trauma, normocephalic atraumatic, mucous membranes moist, no nasal congestion, no scleral icterus. NECK: No stridor, no adenopathy, no meningismus, trachea is midline. LUNGS: Clear to auscultation bilaterally, no wheeze, no rhonchi, breath sounds equal. HEART: Without murmurs gallops or rubs, regular rate and rhythm. ABDOMEN: Soft, nontender, bowel sounds positive, no hernias, no peritonitis. EXTREMITIES: No cyanosis. Mild bilateral pedal edema. There are some bandages on both aspects of the medial portion of her feet. There is no surrounding erythema, no warmth. NEUROLOGIC: Oriented x 3, no acute motor or sensory deficits, no focal weakness. SKIN: No rash, no jaundice, no diaphoresis. DIFFERENTIAL DIAGNOSIS: Infection, dehydration, metabolic abnormality, hypo/hyperglycemia, sepsis, bacteremia, cellulitis, electrolyte disturbance, anemia, hypoxia, cardiac sources, intracerebral event, toxicologic issues, stroke, TIA, as well as other pathologies. EMERGENCY DEPARTMENT COURSE/PROCEDURES: ECG: Indication was dizziness, weakness. The ECG shows a normal sinus rhythm with a rate of 63. There is no ST elevation, no PVCs. The QTc is 466. Continuous Cardiac Monitoring: An order was placed for continuous cardiac monitoring. The monitor shows a rate of 62 with normal sinus rhythm. Critical Care Note: I have personally spent 41 minutes of critical care time in the direct management of this patient. This includes bedside care, interpretation of diagnostic studies, and testing, discussion with consultants, patient, and family members, and other required patient management activities. This 41 minutes is in excess of all separately billable procedures. MEDICAL DECISION MAKING: There is a moderate leukocytosis, this could be consistent with infection or just the stress of her current situation. There is no anemia. There is a normal platelet count. Creatinine is quite high at 4, this is way above her baseline creatinine values. There is a mild elevation to the lactic acid at 2.5, this elevation could be consistent with dehydration and/or infection. Magnesium was quite low at 1.2. No liver failure. ECG shows a sinus rhythm, no acute ischemia. Cardiac enzyme testing x1 is not consistent with acute cardiac injury. The patient appears to be in a euthyroid state. Covid testing returned negative. Chest film did not show pneumonia or CHF. The patient presents dizzy and hypotensive. She received IV saline, 1.5 L. She was given IV magnesium, IV Toradol, IV Unasyn and IV Tylenol. The patient is in need of a hospital stay. She presents hypotensive. She has a cute kidney injury. Sepsis is a concern but I think less likely given her findings and presentation. Certainly, the Bactrim she is taking may have contributed to her acute kidney injury. I did speak with the patient, I spoke with the welfare case worker. The on-call hospitalist has been consulted. Past Med/Surg History Medical History Asthma rare use PRN inh Bipolar disorder Cellulitis of right upper extremity Chronic kidney disease COPD (chronic obstructive pulmonary disease) with chronic bronchitis Coronary artery disease Follows with [facility] Depression with anxiety Diabetes mellitus, type 2 IDDM Diabetic peripheral neuropathy associated with type 2 diabetes mellitus Diabetic ulcer of left foot associated with type 2 diabetes mellitus, with fat layer exposed Dyslipidemia Gastritis Glaucoma Heart failure, systolic, due to CAD History of colon polyps History of heart attack (2008) x3, 2009 and 2013 Hypertension Hypothyroidism Insomnia Marijuana abuse Marijuana use Migraine headache Nocturnal hypoxia Obsessive compulsive disorder On home oxygen therapy 4 LPM cont Posttraumatic stress disorder Restless legs syndrome Severe obstructive sleep apnea-hypopnea syndrome CPAP + 4 LPM O2 Tenosynovitis of hand Tobacco abuse Vitamin D deficiency Surgical History H/O heart artery stent x 3 H/O hernia repair (03/11/17) History of appendectomy History of x 2 History of cardiac catheterization 2008 - [place] - 2 stents 2009 - [place] - 1 stent 2013 - [place] - angioplasty, no stents -- all caths done at [facility] in [place], [place] History of cholecystectomy History of colonoscopy most recent 11/11/19 [place] History of esophagogastroduodenoscopy (EGD) most recent 11/11/19 [facility] S/P cardiac catheterization Dr. Roblero - March 2019 and April 2019. S/P dilation and curettage S/P hysterectomy secondary to endometriosis, tubes also removed. Ovaries retained S/P tonsillectomy Family History Father Diabetes Coronary heart disease Myocardial infarction Hypertension Mother Diabetes Coronary heart disease Hypertension Stroke Slow to wake up after anesthesia Brother Diabetes Grandmother (Maternal) Diabetes Myocardial infarction Hypertension Grandmother (Paternal) Coronary heart disease Aunt Breast cancer Uterine cancer Paternal Grandfather (Maternal) Colorectal cancer Uncle Colorectal cancer Family/Other Ovarian cancer Multiple cousins Denies family history of Prostate cancer Lung cancer Social History Smoking Status: Current every day smoker Tobacco Type: Cigarettes Age Started Using Tobacco: 11; Age Quit Using Tobacco: 55; packs per day: 0.5; Second Hand Exposure: No; Hx Alcohol Use: No Hx Substance Use: Yes Prescribed Medications: Marijuana Last Used Substance: Days (ago) Last Used Substance Other:: yesterday Substance Use Type Other:: medical marijuana card Preferred Language: [place] Communication Ability: Effective Visual Impairment: No Limitations Hearing Ability: Normal 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 Beliefs That Will Affect Care: None marital status: Current Living Situation: Spouse current occupational status: unemployed How many Children do You have: 2 Feels Safe at Home: Yes Childhood Exposure to Second-Hand Smoke: Yes Diet Comment: does not follow diet caffeine: Yes (ice tea) during the past year weight has: other Dental Care, Regularly: Yes Physical Activity Frequency: 1-2 Times per Week Physical Activity Frequency Comment: swimming Seatbelt Use: always Sunscreen Use: No Assistive Devices: None Allergies Allergies Allergy/AdvReac Type Severity Reaction Status Date / Time No Known Allergies Allergy Verified 09/04/20 15:46 Home Meds Home Medications Medication Instructions Recorded Confirmed budesonide-formoterol HFA 160 2 puff INHALATION BID 10/05/18 09/04/20 mcg-4.5 mcg/actuation aerosol inhaler (Symbicort) duloxetine 30 mg capsule,delayed 30 mg PO QAM 10/09/18 09/04/20 release aripiprazole 2 mg tablet 2 mg PO QAM 08/11/19 09/04/20 atomoxetine 80 mg capsule 80 mg PO HS 08/11/19 09/04/20 (Strattera) pen needle, diabetic 31 gauge x ea 10/25/19 09/04/2004/25" (BD Ultra-Fine Mini Pen Needle) cholecalciferol (vitamin D3) 50 50 mcg PO QAM 11/04/19 09/04/20 mcg (2,000 unit) capsule duloxetine 60 mg capsule,delayed 60 mg PO QAM 11/04/19 09/04/20 release gabapentin 600 mg tablet 800 mg PO TID tab 12/31/19 09/04/20 furosemide 40 mg tablet 40 mg PO QAM tab 01/03/20 09/04/20 famotidine 20 mg tablet 20 mg PO DAILY tab 04/13/20 09/04/20 insulin detemir U-100 100 unit/mL 80 unit SQ QPM box 05/16/20 09/04/20 (3 mL) subcutaneous pen (Levemir FlexTouch U-100 Insulin) pramipexole 0.5 mg tablet 0.5 mg PO DAILY 05/23/20 09/04/20 insulin aspart U-100 100 unit/mL See Rx Instructions SQ .COMPLEX ml 09/01/20 09/04/20 (3 mL) subcutaneous pen (Novolog Flexpen U-100 Insulin aspart) sulfamethoxazole 800 1 tab PO BID 09/04/20 09/04/20 mg-trimethoprim 160 mg tablet (Bactrim DS) Previous Rx's Medication Instructions Recorded albuterol sulfate 90 mcg/actuation 2 puffs INH Q4H PRN #8.5 gm 10/28/17 aerosol inhaler prochlorperazine maleate 10 mg 10 mg PO QID PRN #14 tab 03/24/19 tablet icosapent ethyl 1 gram capsule 2 gm PO BID #120 cap 08/12/19 (Vascepa) blood sugar diagnostic (OneTouch #150 ea 08/30/19 Verio test strips) blood-glucose meter (OneTouch #1 ea 08/30/19 Verio Meter) topiramate 50 mg tablet 50 mg PO BID #60 tab 09/24/19 magnesium oxide 400 mg (241.3 mg 400 mg PO BID #180 tab 10/22/19 magnesium) tablet metoprolol tartrate 50 mg tablet 25 mg PO QPM #90 tab 10/25/19 (Lopressor) loratadine-pseudoephedrine ER 10 1 tab PO DAILY #30 tab 12/30/19 mg-240 mg tablet,extended [id number] (Claritin-D 24 Hour) diclofenac sodium 50 mg 50 mg PO BID #180 tab 03/09/20 tablet,delayed release aspirin 81 mg tablet,delayed 81 mg PO DAILY #30 tab 04/03/20 release (Adult Aspirin Regimen) Oxygen Home #2 l 04/11/20 tiotropium bromide 2.5 2 puff INHALATION DAILY #4 g 04/11/20 mcg/actuation mist for inhalation (Spiriva Respimat) atorvastatin 80 mg tablet (Lipitor) 40 mg PO BID #90 tab 04/20/20 levothyroxine 50 mcg tablet 50 mcg PO QAM #90 tab 04/21/20 (Synthroid) verapamil 240 mg tablet,extended 240 mg PO QPM #90 tab 04/21/20 release clopidogrel 75 mg tablet (Plavix) 75 mg PO QPM #90 tab 05/24/20 fenofibrate 160 mg tablet 160 mg PO QAM #90 tab 05/24/20 metformin 1,000 mg tablet 1,000 mg PO BID #180 tab 05/24/20 lidocaine 4 % topical cream 1 applic TOPICAL BID PRN #30 g 05/25/20 Portable Oxygen #1 ea 06/12/20 nitroglycerin 0.4 mg sublingual 0.4 mg SUBLINGUAL Q5M PRN #20 tab 06/12/20 tablet pen needle, diabetic 31 gauge x #200 ea 06/12/20 5/16" (BD Ultra-Fine Short Pen Needle) Victoza 3-Isidro 0.6 mg/0.1 mL (18 1.8 mg SQ DAILY #9 ml NS 06/28/20 mg/3 mL) subcutaneous pen injector (liraglutide) [id number]-dbzvfcgjapclu-zdzcbvij See Rx Instructions PO Q4H PRN #20 07/04/20 50 mg-325 mg-40 mg tablet tab trazodone 150 mg tablet 75 mg PO HS #90 tab 07/04/20 varenicline 1 mg tablet (Chantix) 0.5 mg PO BID #56 tab 07/04/20 pantoprazole 40 mg tablet,delayed 40 mg PO DAILY 30 Days #30 tab 08/15/20 release Results & Data (ED) Vital Signs Vital Signs - 24 hr 09/04/20 13:59 09/04/20 14:08 09/04/20 14:14 Pulse Rate 61 60 Pulse Rate from SpO2 Sensor 61 Respiratory Rate 22 18 Blood Pressure 61/34 L 68/41 L Blood Pressure Mean 43 50 Pulse Oximetry 92 93 93 Oxygen Delivery Method Room Air Room Air Oxygen Flow Rate Sepsis Recent Fever Within 48 Hours No Sepsis New/Unexplained Change in Mental Status Yes Sepsis Action Taken by Nursing Previously Notified 09/04/20 14:48 09/04/20 14:59 09/04/20 15:01 Pulse Rate 62 62 Pulse Rate from SpO2 Sensor 62 64 Respiratory Rate 16 18 Blood Pressure 83/35 L 61/34 L Blood Pressure Mean 51 43 Pulse Oximetry 93 96 97 Oxygen Delivery Method Nasal Cannula Oxygen Flow Rate 3 Sepsis Recent Fever Within 48 Hours Sepsis New/Unexplained Change in Mental Status Sepsis Action Taken by Nursing 09/04/20 15:15 09/04/20 15:25 09/04/20 15:30 Pulse Rate 64 65 66 Pulse Rate from SpO2 Sensor 64 66 65 Respiratory Rate 14 19 19 Blood Pressure 54/33 L 74/38 L 68/42 L Blood Pressure Mean 40 50 50 Pulse Oximetry 97 98 98 Oxygen Delivery Method Oxygen Flow Rate Sepsis Recent Fever Within 48 Hours Sepsis New/Unexplained Change in Mental Status Sepsis Action Taken by Nursing 09/04/20 15:40 09/04/20 15:53 09/04/20 16:00 Pulse Rate 68 69 68 Pulse Rate from SpO2 Sensor 68 Respiratory Rate 14 17 15 Blood Pressure 63/42 L 88/53 L 82/49 L Blood Pressure Mean 49 64 60 Pulse Oximetry 94 Oxygen Delivery Method Oxygen Flow Rate Sepsis Recent Fever Within 48 Hours Sepsis New/Unexplained Change in Mental Status Sepsis Action Taken by Nursing 09/04/20 16:15 09/04/20 16:21 09/04/20 16:30 Pulse Rate 70 67 68 Pulse Rate from SpO2 Sensor Respiratory Rate 17 13 11 L Blood Pressure 94/54 L 92/56 L 68/47 L Blood Pressure Mean 67 68 54 Pulse Oximetry Oxygen Delivery Method Oxygen Flow Rate Sepsis Recent Fever Within 48 Hours Sepsis New/Unexplained Change in Mental Status Sepsis Action Taken by Correction Medications Current Medication List: was personally reviewed by me Laboratory Data Attestation: I reviewed the patient's lab results. Result diagrams: 09/04/20 14:35 09/04/20 14:35 Lab Results 09/04/20 09/04/20 09/04/20 Range/Units 14:35 14:35 14:35 WBC 14.91 H (4.8-10.8) K/uL RBC 4.66 (4.2-5.4) M/uL Hgb 12.8 (12.0-16.0) g/dL Hct 39.3 (37-47) % MCV 84.3 (80-100) fL MCH 27.5 (25-34) pg MCHC 32.6 (32-36) g/dL RDW Std Deviation 44.1 (36.4-46.3) fL RDW Coeff of Caitlin 14.2 (11.5-14.5) % Plt Count 281 (130-400) K/uL MPV 9.8 (7.4-10.4) fL Immature Gran % (Auto) 0.4 % Neut % (Auto) 70.9 % Lymph % (Auto) 21.1 % [place] % (Auto) 6.5 % Eos % (Auto) 0.8 % Baso % (Auto) 0.3 % Neut # (Auto) 10.57 H (1.4-6.5) K/uL Lymph # (Auto) 3.15 (1.2-3.4) K/uL [place] # (Auto) 0.97 H (0.11-0.59) K/uL Eos # (Auto) 0.12 (0-0.5) K/uL Baso # (Auto) 0.04 (0-0.2) K/uL Immature Gran # (Auto) 0.06 H (0.00-0.02) K/uL Sodium 138 (136-145) mmol/L Potassium 3.5 (3.5-5.1) mmol/L Chloride 101 (98-107) mmol/L Carbon Dioxide 27 (21-32) mmol/L Anion Gap 10.0 (3-11) BUN 41 H (7-18) mg/dl Creatinine 4.03 H (0.6-1.2) mg/dl Est Cr Clr Drug Dosing 20.1 ml/min Est GFR ( Amer) 13.6 ml/min Est GFR (Non-Af Amer) 11.8 ml/min BUN/Creatinine Ratio 10.2 (10-20) Glucose 90 (70-99) mg/dl Lactate 2.5 H* (0.4-2.0) mmol/L Calcium 7.9 L (8.5-10.1) mg/dl Magnesium 1.2 L (1.8-2.4) mg/dl Total Bilirubin 0.3 (0.2-1) mg/dl AST 18 (15-37) U/L ALT 9 L (12-78) U/L Alkaline Phosphatase 111 (45-117) U/L Troponin I < 0.015 (0-0.045) ng/ml Total Protein 6.9 (6.4-8.2) gm/dl Albumin 2.9 L (3.4-5.0) gm/dl Globulin 4.0 (2.5-4.0) gm/dl Albumin/Globulin Ratio 0.7 L (0.9-2) TSH 2.320 (0.300-4.500) uIu/ml COVID-19 Eval Order SARS-CoV-2 (PCR) (Negative) 09/04/20 09/04/20 Range/Units 14:45 14:45 WBC (4.8-10.8) K/uL RBC (4.2-5.4) M/uL Hgb (12.0-16.0) g/dL Hct (37-47) % MCV (80-100) fL MCH (25-34) pg MCHC (32-36) g/dL RDW Std Deviation (36.4-46.3) fL RDW Coeff of Caitlin (11.5-14.5) % Plt Count (130-400) K/uL MPV (7.4-10.4) fL Immature Gran % (Auto) % Neut % (Auto) % Lymph % (Auto) % [place] % (Auto) % Eos % (Auto) % Baso % (Auto) % Neut # (Auto) (1.4-6.5) K/uL Lymph # (Auto) (1.2-3.4) K/uL [place] # (Auto) (0.11-0.59) K/uL Eos # (Auto) (0-0.5) K/uL Baso # (Auto) (0-0.2) K/uL Immature Gran # (Auto) (0.00-0.02) K/uL Sodium (136-145) mmol/L Potassium (3.5-5.1) mmol/L Chloride (98-107) mmol/L Carbon Dioxide (21-32) mmol/L Anion Gap (3-11) BUN (7-18) mg/dl Creatinine (0.6-1.2) mg/dl Est Cr Clr Drug Dosing ml/min Est GFR ( Amer) ml/min Est GFR (Non-Af Amer) ml/min BUN/Creatinine Ratio (10-20) Glucose (70-99) mg/dl Lactate (0.4-2.0) mmol/L Calcium (8.5-10.1) mg/dl Magnesium (1.8-2.4) mg/dl Total Bilirubin (0.2-1) mg/dl AST (15-37) U/L ALT (12-78) U/L Alkaline Phosphatase (45-117) U/L Troponin I (0-0.045) ng/ml Total Protein (6.4-8.2) gm/dl Albumin (3.4-5.0) gm/dl Globulin (2.5-4.0) gm/dl Albumin/Globulin Ratio (0.9-2) TSH (0.300-4.500) uIu/ml COVID-19 Eval Order Covid19 at [facility] SARS-CoV-2 (PCR) NEGATIVE (Negative) Administered Medications Magnesium Sulfate/Dextrose (Magnesium Sulfate / D5w) 1 gm in 100 mls @ 100 mls/ hr IV Q1H AKASH Stop: 09/04/20 17:19 Last Admin: 09/04/20 16:22 Dose: 100 mls/hr Documented by: [id number] Discontinued Medications Sodium Chloride (Nss 1000ml) 1,000 mls @ 999 mls/hr IV .Q1H1M AKASH Stop: 09/04/20 15:15 Last Infusion: 09/04/20 16:15 Dose: 0 mls/hr Documented by: [id number] Admin: 09/04/20 15:04 Dose: 999 mls/hr Documented by: [id number] Acetaminophen (Ofirmev) 1,000 mg in 100 mls @ 400 mls/hr IV NOW STA Stop: 09/04/20 14:20 Last Infusion: 09/04/20 15:35 Dose: 0 mls/hr Documented by: [id number] Admin: 09/04/20 15:04 Dose: 400 mls/hr Documented by: [id number] Ampicillin Sodium/Sulbactam Sodium 3,000 mg/ Sodium Chloride 108 mls @ 200 mls/hr IV NOW STA; Protocol Stop: 09/04/20 15:23 Last Infusion: 09/04/20 16:15 Dose: 0 mls/hr Documented by: [id number] Admin: 09/04/20 15:26 Dose: 200 mls/hr Documented by: [id number] Ketorolac Tromethamine (Ketorolac Tromethamine 15 Mg/Ml Vial) 15 mg IV NOW STA Stop: 09/04/20 14:07 Last Admin: 09/04/20 15:04 Dose: 15 mg Documented by: [id number] Imaging Data Radiologist's Impression: Chest X-Ray 09/04/20 14:07 XR chest 1V portable CLINICAL HISTORY: weakness COMPARISON STUDY: Chest radiograph June 02, 2020. FINDINGS: Lung volumes are normal. Lungs are clear. There is no pneumothorax or pleural effusion. Cardiac size is normal. Mediastinal contours are normal. There is no evidence for pulmonary edema. Mild interstitial prominence remains unchanged. IMPRESSION: No acute cardiopulmonary findings. No change in mild interstitial thickening. ACT 112: Negative or not required by law. Electronically signed by: Emeterio Dumont M.D. 09/04/2020 3:02 PM Discharge Plan Visit Data Chief Complaint: Cardiac Assessment Stated Complaint: CARDIAC ASSESSMENT ED Provider: Gerard Cuba Discharge Problem: Hypotension, HAN (acute kidney injury), Dizziness, Hypomagnesemia Patient Disposition: Admitted As Inpatient Condition: Fair Forms Stand Alone Forms: [facility] [place] Hey, Neighbor! Prescriptions Prescriptions: No Action gabapentin 600 mg tablet 800 mg PO TID RF: 0 topiramate 50 mg tablet 50 mg PO BID Qty: 60 RF: 0 magnesium oxide 400 mg (241.3 mg magnesium) tablet 400 mg PO BID Qty: 180 RF: 1 diclofenac sodium 50 mg tablet,delayed release (DR/EC) 50 mg PO BID Qty: 180 RF: 1 atorvastatin [Lipitor] 80 mg tablet 40 mg PO BID Qty: 90 RF: 1 levothyroxine [Synthroid] 50 mcg tablet 50 mcg PO QAM Qty: 90 RF: 1 verapamil 240 mg tablet extended release 240 mg PO QPM Qty: 90 RF: 1 clopidogrel [Plavix] 75 mg tablet 75 mg PO QPM Qty: 90 RF: 1 fenofibrate 160 mg tablet 160 mg PO QAM Qty: 90 RF: 1 metformin 1,000 mg tablet 1,000 mg PO BID Qty: 180 RF: 1 nitroglycerin 0.4 mg tablet, sublingual 0.4 mg sublingual Q5M PRN (Reason: chest pain) Qty: 20 RF: 2 Victoza 3-Isidro 0.6 mg/0.1 mL (18 mg/3 mL) pen injector 1.8 mg SQ DAILY Qty: 9 RF: 2 pantoprazole 40 mg tablet,delayed release (DR/EC) 40 mg PO DAILY 30 Days Qty: 30 RF: 2 loratadine-pseudoephedrine [Claritin-D 24 Hour] 10-240 mg tablet extended release 24 hr 1 tab PO DAILY Qty: 30 RF: 0 furosemide 40 mg tablet 40 mg PO QAM RF: 0 aripiprazole 2 mg tablet 2 mg PO QAM RF: 0 atomoxetine [Strattera] 80 mg capsule 80 mg PO HS RF: 0 Vascepa 1 gram capsule 2 gm PO BID Qty: 120 RF: 3 metoprolol tartrate [Lopressor] 50 mg tablet 25 mg PO QPM Qty: 90 RF: 3 (DME) Oxygen Home Liters Per Minute See Rx Instructions .ROUTE .MEDSUPPLY Qty: 2 RF: 0 Spiriva Respimat 2.5 mcg/actuation mist 2 puff inhalation DAILY Qty: 4 RF: 2 insulin aspart U-100 [Novolog Flexpen U-100 Insulin] 100 unit/mL (3 mL) insulin pen See Rx Instructions SQ .COMPLEX RF: 0 Chantix 1 mg tablet 0.5 mg PO BID Qty: 56 RF: 0 svcgwgszie-encvfhijybnbq-cwaa 50-325-40 mg tablet See Rx Instructions PO Q4H PRN (Reason: headache) Qty: 20 RF: 0 trazodone 150 mg tablet 75 mg PO HS Qty: 90 RF: 0 famotidine 20 mg tablet 20 mg PO DAILY RF: 0 (DME) Portable Oxygen Misc See Rx Instructions .ROUTE .MEDSUPPLY Qty: 1 RF: 0 (DME) pen needle, diabetic [BD Ultra-Fine Short Pen Needle] 31 gauge x 5/16" needle See Rx Instructions .ROUTE .MEDSUPPLY Qty: 200 RF: 5 (DME) pen needle, diabetic [BD Ultra-Fine Mini Pen Needle] 31 gauge x 3/16" needle See Rx Instructions .ROUTE .MEDSUPPLY RF: 0 Levemir FlexTouch U-100 Insuln 100 unit/mL (3 mL) insulin pen 80 unit SQ QPM RF: 0 duloxetine 30 mg capsule,delayed release(DR/EC) 30 mg PO QAM RF: 0 (DME) blood sugar diagnostic [OneTouch Verio test strips] Strip See Rx Instructions .ROUTE .MEDSUPPLY Qty: 150 RF: 6 (DME) blood-glucose meter [OneTouch Verio Meter] Misc See Rx Instructions [id number] .MEDSUPPLY Qty: 1 RF: 0 albuterol sulfate 90 mcg/actuation HFA aerosol inhaler 2 puffs INH Q4H PRN (Reason: shortness of breath or wheezing) Qty: 8.5 RF: 0 Symbicort 160-4.5 mcg/actuation HFA aerosol inhaler 2 puff INHALATION BID RF: 0 prochlorperazine maleate 10 mg tablet 10 mg PO QID PRN (Reason: nausea and vomiting) Qty: 14 RF: 0 duloxetine 60 mg capsule,delayed release(DR/EC) 60 mg PO QAM RF: 0 cholecalciferol (vitamin D3) 50 mcg (2,000 unit) capsule 50 mcg PO QAM RF: 0 aspirin [Adult Aspirin Regimen] 81 mg tablet,delayed release (DR/EC) 81 mg PO DAILY Qty: 30 RF: 11 pramipexole 0.5 mg tablet 0.5 mg PO DAILY RF: 0 lidocaine 4 % cream 1 applic topical BID PRN (Reason: pain) Qty: 30 RF: 0 sulfamethoxazole-trimethoprim [Bactrim DS] 800-160 mg tablet 1 tab PO BID RF: 0 Referrals Referrals: Swati Berger DO [Primary Care Provider] -
[2020-09-04] MEDS ORDERED: SODIUM CHLORIDE 0.9% 1000ML 1,000 ML IV SCH (14:15)
[2020-09-04 14:45] LABS: Basophils # (auto) 0.04 K/uL (0-0.2); Basophils % (auto) 0.3 %; Eosinophils # (auto) 0.12 K/uL (0-0.5); Eosinophils % (auto) 0.8 %; Hematocrit (blood only) 39.3 % (37-47); Hemoglobin 12.8 g/dL (12.0-16.0); Immature Granulocytes # (auto) 0.06 K/uL (0.00-0.02); Immature Granulocytes % (auto) 0.4 %; Lymphocytes # (auto) 3.15 K/uL (1.2-3.4); Lymphocytes % (auto) 21.1 %; Mean Corpuscular Hemoglobin 27.5 pg (25-34); Mean Corpuscular Hgb Conc 32.6 g/dL (32-36); Mean Corpuscular Volume 84.3 fL (80-100); Mean Platelet Volume 9.8 fL (7.4-10.4); Monocytes # (auto) 0.97 K/uL (0.11-0.59); Monocytes % (auto) 6.5 %; Neutrophils # (auto) 10.57 K/uL (1.4-6.5); Neutrophils % (auto) 70.9 %; Platelet Count 281 K/uL (130-400); RDW Coefficient of Variation 14.2 % (11.5-14.5); RDW Standard Deviation 44.1 fL (36.4-46.3); Red Blood Count 4.66 M/uL (4.2-5.4); White Blood Count 14.91 K/uL (4.8-10.8)
[2020-09-04] MEDS ORDERED: AMPICILLIN/SULBACTAM SOD 3,000 MG in 0.9 % SODIUM CHLORIDE 100 ML IV STA (14:51)
[2020-09-04 15:03] LABS: Alanine Aminotransferase 9 U/L (12-78); Albumin Level 2.9 gm/dl (3.4-5.0); Aspartate Aminotransferase 18 U/L (15-37); BUN Creatinine Ratio 10.2 (10-20); Blood Urea Nitrogen 41 mg/dl (7-18); Calcium 7.9 mg/dl (8.5-10.1); Carbon Dioxide 27 mmol/L (21-32); Chloride 101 mmol/L (98-107); Creatinine Clr Calc Pharmacy 20.1 ml/min; Est GFR (African American) 13.6 ml/min; Est GFR (Non-African American) 11.8 ml/min; Glucose 90 mg/dl (70-99); Magnesium 1.2 mg/dl (1.8-2.4); Potassium 3.5 mmol/L (3.5-5.1); Sodium 138 mmol/L (136-145)
--- NOTE | 2020-09-04 15:04 | XRay Report ---
XR chest 1V portable CLINICAL HISTORY: weakness COMPARISON STUDY: Chest radiograph June 02, 2020. FINDINGS: Lung volumes are normal. Lungs are clear. There is no pneumothorax or pleural effusion. Car diac size is normal. Mediastinal contours are normal. There is no evidence for pulmonary edema. Mild interstitial prominence remains unchanged. IMPRESSION: No acute cardiopulmonary findings. No change in mild interstitial thickening. ACT 112: Negative or not required by law. Electronically signed by: Emeterio Dumont M.D. 09/04/2020 3:02 PM
[2020-09-04 15:14] LABS: Albumin Globulin Ratio 0.7 (0.9-2); Alkaline Phosphatase 111 U/L (45-117); Bilirubin,Total 0.3 mg/dl (0.2-1); Total Protein 6.9 gm/dl (6.4-8.2); Troponin I < 0.015 ng/ml (0-0.045)
[2020-09-04] MEDS ORDERED: SODIUM CHLORIDE 0.9% 1000ML 500 ML IV ONE (15:20)
--- NOTE | 2020-09-04 16:19 | Electrocardiogram Report ---
Test Reason : Blood Pressure : / mmHG Vent. Rate : 063 BPM Atrial Rate : 063 BPM P-R Int : 176 ms QRS Dur : 098 ms QT Int : 456 ms P-R-T Axes : 022 039 053 degrees QTc Int : 466 ms Normal sinus rhythm Normal ECG When compared with ECG of 02-JUN-2020 14:36, No significant change was found Confirmed by Dameon Thurman ([id number]) on 09/04/2020 4:19:30 PM Referred By: REFERRED SELF Confirmed By:Dameon Thurman
[2020-09-04] MEDS: MAGNESIUM SULFATE / D5W 1 GM/100 ML BAG IV SCH ×5 (16:22→22:23)
[2020-09-04] MEDS ORDERED: PHARMACY GLYCEMIC MGMT CONSULT STA (16:41)
[2020-09-04] MEDS ORDERED: PHARMACY GLYCEMIC MGMT CONSULT PRN ×2 (16:49→19:01)
--- NOTE | 2020-09-04 17:01 | History & Physical Report ---
Date of Service September 04, 2020 Assessment & Plan (1) Hypotension: Plan: Impression: 7-day history of being treated for MSSA with Bactrim. Ongoing diarrhea for the past 5 days. Patient presents with dizziness and hypotension. Improvement to blood pressure with 1 L of normal saline solution. Currently running an additional 500 cc bolus. Lactic acid 2.5. WBCs 14.9. Afebrile. Magnesium level 1.2. Patient appears to be with acute kidney injury secondary to Bactrim and prerenal due to dehydration, hypovolemia. Also in setting of taking lasix daily. Also on NSAIDs Baseline creatinine 1.2. Creatinine currently 4.03 Discontinue Bactrim. Patient received 3 g of Unasyn in the emergency department Hold further antibiotics Hold all antihypertensives Continue aggressive IV fluid at 125 mL/h after boluses are complete Will monitor on telemetry Check for C. difficile and check a stool culture Isolation precautions until C. difficile is returned negative Echocardiogram reviewed. No valvular disorder. Left ventricular ejection fraction preserved. No left ventricular dysfunction (2) HAN (acute kidney injury): Plan: as above, secondary to hypovolemia from diarrhea, hypotension possibly causing ATN, Bactrim use, NSAIDs, and daily lasix Discontinue Bactrim Continue aggressive fluid hydration Baseline creatinine 1.2 Follow serial lab -check UA -check CT abd/pel for evidence of obstruction place Alberto (3) Hypomagnesemia: Plan: Secondary to diarrhea Potassium 3.5 Magnesium was 1.2. Repleted with 2 g of magnesium sulfate and will give 2 more IV grams Follow serial magnesium (4) MSSA (methicillin susceptible Staphylococcus aureus) infection: Plan: Patient received 7 days of Bactrim Given 3 g of Unasyn in the emergency department Check a procalcitonin No further antibiotics at this time as wounds do not appear infected (5) Leukocytosis: Plan: Chronic infection versus C. difficile versus leukemoid reaction Check procalcitonin Check blood cultures x2 check UA Afebrile (6) Diarrhea: Plan: Secondary to Bactrim Check C. difficile Check stool culture (7) COPD (chronic obstructive pulmonary disease) with chronic bronchitis: Plan: Continue usual home medications Follows with Dr. Neumann in the pulmonary office No acute hypoxia Continue supplemental oxygen at night for nocturnal hypoxia (8) Tobacco abuse: Plan: Continue to encourage smoking cessation Patient does not desire NicoDerm patch at this time (9) Marijuana abuse: Plan: Daily use for chronic pain and anxiety (10) Type II diabetes mellitus, uncontrolled: Plan: Hemoglobin A1c 9.0% Hold all outpatient medications Start with Lantus 20 units twice daily and NovoLog sliding scale insulin Glycemic consult requested from pharmacy. Appreciate their input (11) Coronary artery disease: Plan: Hold antihypertensives Continue Plavix and aspirin (12) Hypothyroidism: Plan: Continue levothyroxine TSH is 2.32 (13) Severe obstructive sleep apnea-hypopnea syndrome: Plan: Patient does have CPAP at home Continue with CPAP per protocol while inpatient Further management as an outpatient (14) Migraine headache: Plan: Toradol in the ED Continue Fioricet and Topamax Avoid narcotics and opiates at this time secondary to hypotension tylenol prn and HOLD home diclofenac (15) Depression with anxiety: Plan: Continue usual home medications (16) Hypertension: Plan: Hold home antihypertensives at this time secondary to hypotension Anticipate that we will restart tomorrow based on clinical response (17) Insomnia: Plan: Hold all medications at this time secondary to hypotension (18) Bipolar disorder: Plan: Mood is stable Continue home medications (19) Chronic diastolic CHF (congestive heart failure): Plan: No clinical evidence of heart failure at this time Patient currently hypotensive Echocardiogram from March with preserved ventricular function hold home lasix (20) Peptic ulcer disease: Plan: Continue famotidine No pain on palpation (21) DVT prophylaxis: Plan: No SCDs or ROSHAN hose at this time secondary to chronic lower extremity wounds Heparin 7500 units subcu every 8 hours Ambulate as tolerated with assistance History of Present Illness Chief Complaint: Diarrhea, dizziness Primary Care Provider: Swati Berger DO Attending: Dr. Restrepo This is a 55-year-old female with a complicated past medical history including MSSA infection of the foot on Bactrim, type 2 diabetes mellitus with A1c of 9.0%, chronic kidney disease baseline creatinine 1.2, COPD with chronic bronchitis, asthma, nocturnal hypoxia, obstructive sleep apnea/obesity hypoventilation syndrome, CPAP use, ongoing tobacco abuse, peptic ulcer disease, daily marijuana use, chronic diastolic congestive heart failure, hypertriglyceridemia, dyslipidemia, migraine headaches, bipolar disorder, obsessive-compulsive disorder, glaucoma, hypertension, hypothyroidism, vitamin D deficiency, depression with anxiety, morbid obesity with a BMI of 45.4 kg/m. The patient follows with wound care clinic and was found to have apparent infection last week. The wound was swabbed and was positive for MSSA on 08/28/2020. Was patient started on Bactrim for the infection, she began to have diarrhea 4-5 times a day and copious amounts. Over the weekend she has felt dizzy and presented to the wound care clinic today for evaluation. She was found to have a blood pressure of 60 over palp and was referred to the emergency department for further evaluation. EKG was performed and shows no new changes. Echocardiogram was reviewed from 03/23/2020 and showed normal wall motion and left ventricular ejection fraction of 60 to 65% with normal systolic function and no valvular abnormalities. Patient was given 1500 mL of normal saline solution and systolic pressure improved to 92 with a MAP of 68. Lactic acid was 2.5. WBCs were 14.9. No fever, chills, sweats, rigors. No nausea or vomiting. No other symptoms other than copious amounts of diarrhea. Patient was given 3 g of Unasyn while in the emergency department. Foot was examined and there is no sign of extension of infection including erythema or warmth. Patient does have COPD and is a daily smoker of approximately 1/2 pack/day. In review of her most recent pulmonary note she had quit smoking but reports to me that she picked it up again. She also smokes marijuana daily as supplied by local dealer. She does not have a medical prescription for marijuana. Regarding her diabetes, patient states that she takes all medications as prescribed. She has a hemoglobin A1c of 9.0%. She has not had any significantly high sugars. Aside from a migraine headache, diarrhea and lightheadedness, she has no other acute complaints. I did discuss CODE STATUS and patient desires to be a full code; level I Allergies Allergy/AdvReac Type Severity Reaction Status Date / Time No Known Allergies Allergy Verified 09/04/20 15:46 Home Medications Medication Instructions Recorded Confirmed Type albuterol sulfate 90 mcg/actuation 2 puffs INH Q4H PRN #8.5 gm 10/28/17 09/04/20 Rx aerosol inhaler budesonide-formoterol HFA 160 2 puff INHALATION BID 10/05/18 09/04/20 History mcg-4.5 mcg/actuation aerosol inhaler (Symbicort) duloxetine 30 mg capsule,delayed 30 mg PO QAM 10/09/18 09/04/20 History release prochlorperazine maleate 10 mg 10 mg PO QID PRN #14 tab 03/24/19 09/04/20 Rx tablet aripiprazole 2 mg tablet 2 mg PO QAM 08/11/19 09/04/20 History atomoxetine 80 mg capsule 80 mg PO HS 08/11/19 09/04/20 History (Strattera) icosapent ethyl 1 gram capsule 2 gm PO BID #120 cap 08/12/19 09/04/20 Rx (Vascepa) blood sugar diagnostic (OneTouch #150 ea 08/30/19 09/04/20 Rx Verio test strips) blood-glucose meter (OneTouch #1 ea 08/30/19 09/04/20 Rx Verio Meter) topiramate 50 mg tablet 50 mg PO BID #60 tab 09/24/19 09/04/20 Rx magnesium oxide 400 mg (241.3 mg 400 mg PO BID #180 tab 10/22/19 09/04/20 Rx magnesium) tablet metoprolol tartrate 50 mg tablet 25 mg PO QPM #90 tab 10/25/19 09/04/20 Rx (Lopressor) pen needle, diabetic 31 gauge x ea 10/25/19 09/04/20 History 3/16" (BD Ultra-Fine Mini Pen Needle) cholecalciferol (vitamin D3) 50 50 mcg PO QAM 11/04/19 09/04/20 History mcg (2,000 unit) capsule duloxetine 60 mg capsule,delayed 60 mg PO QAM 11/04/19 09/04/20 History release loratadine-pseudoephedrine ER 10 1 tab PO DAILY #30 tab 12/30/19 09/04/20 Rx mg-240 mg tablet,extended [id number] (Claritin-D 24 Hour) gabapentin 600 mg tablet 800 mg PO TID tab 12/31/19 09/04/20 History furosemide 40 mg tablet 40 mg PO QAM tab 01/03/20 09/04/20 History diclofenac sodium 50 mg 50 mg PO BID #180 tab 03/09/20 09/04/20 Rx tablet,delayed release aspirin 81 mg tablet,delayed 81 mg PO DAILY #30 tab 04/03/20 09/04/20 Rx release (Adult Aspirin Regimen) Oxygen Home #2 l 04/11/20 09/04/20 Rx tiotropium bromide 2.5 2 puff INHALATION DAILY #4 g 04/11/20 09/04/20 Rx mcg/actuation mist for inhalation (Spiriva Respimat) famotidine 20 mg tablet 20 mg PO DAILY tab 04/13/20 09/04/20 History atorvastatin 80 mg tablet (Lipitor) 40 mg PO BID #90 tab 04/20/20 09/04/20 Rx levothyroxine 50 mcg tablet 50 mcg PO QAM #90 tab 04/21/20 09/04/20 Rx (Synthroid) verapamil 240 mg tablet,extended 240 mg PO QPM #90 tab 04/21/20 09/04/20 Rx release insulin detemir U-100 100 unit/mL 80 unit SQ QPM box 05/16/20 09/04/20 History (3 mL) subcutaneous pen (Levemir FlexTouch U-100 Insulin) pramipexole 0.5 mg tablet 0.5 mg PO DAILY 05/23/20 09/04/20 History clopidogrel 75 mg tablet (Plavix) 75 mg PO QPM #90 tab 05/24/20 09/04/20 Rx fenofibrate 160 mg tablet 160 mg PO QAM #90 tab 05/24/20 09/04/20 Rx metformin 1,000 mg tablet 1,000 mg PO BID #180 tab 05/24/20 09/04/20 Rx lidocaine 4 % topical cream 1 applic TOPICAL BID PRN #30 g 05/25/20 09/04/20 Rx Portable Oxygen #1 ea 06/12/20 09/04/20 Rx nitroglycerin 0.4 mg sublingual 0.4 mg SUBLINGUAL Q5M PRN #20 tab 06/12/20 09/04/20 Rx tablet pen needle, diabetic 31 gauge x #200 ea 06/12/20 09/04/20 Rx 5/16" (BD Ultra-Fine Short Pen Needle) Victoza 3-Isidro 0.6 mg/0.1 mL (18 1.8 mg SQ DAILY #9 ml NS 06/28/20 09/04/20 Rx mg/3 mL) subcutaneous pen injector (liraglutide) [id number] See Rx Instructions PO Q4H PRN #20 07/04/20 09/04/20 Rx 50 mg-325 mg-40 mg tablet tab trazodone 150 mg tablet 75 mg PO HS #90 tab 07/04/20 09/04/20 Rx varenicline 1 mg tablet (Chantix) 0.5 mg PO BID #56 tab 07/04/20 09/04/20 Rx pantoprazole 40 mg tablet,delayed 40 mg PO DAILY 30 Days #30 tab 08/15/20 Rx release insulin aspart U-100 100 unit/mL See Rx Instructions SQ .COMPLEX ml 09/01/20 09/04/20 History (3 mL) subcutaneous pen (Novolog Flexpen U-100 Insulin aspart) sulfamethoxazole 800 1 tab PO BID 09/04/20 09/04/20 History mg-trimethoprim 160 mg tablet (Bactrim DS) Past Med/Surg History Medical History Asthma rare use PRN inh Bipolar disorder Cellulitis of right upper extremity Chronic kidney disease COPD (chronic obstructive pulmonary disease) with chronic bronchitis Coronary artery disease Follows with [facility] Depression with anxiety Diabetes mellitus, type 2 IDDM Diabetic peripheral neuropathy associated with type 2 diabetes mellitus Diabetic ulcer of left foot associated with type 2 diabetes mellitus, with fat layer exposed Dyslipidemia Gastritis Glaucoma Heart failure, systolic, due to CAD History of colon polyps History of heart attack (2008) x3, 2009 and 2013 Hypertension Hypothyroidism Insomnia Marijuana abuse Marijuana use Migraine headache Nocturnal hypoxia Obsessive compulsive disorder On home oxygen therapy 4 LPM cont Posttraumatic stress disorder Restless legs syndrome Severe obstructive sleep apnea-hypopnea syndrome CPAP + 4 LPM O2 Tenosynovitis of hand Tobacco abuse Vitamin D deficiency Surgical History H/O heart artery stent x 3 H/O hernia repair (03/11/17) History of appendectomy History of x 2 History of cardiac catheterization 2008 - [place] - 2 stents 2009 [place] - 1 stent 2013 - [place] - angioplasty, no stents -- all caths done at [facility] in [place], [place] History of cholecystectomy History of colonoscopy most recent 11/11/19 [place] History of esophagogastroduodenoscopy (EGD) most recent 11/11/19 [place] S/P cardiac catheterization Dr. Roblero - March 2019 and April 2019. S/P dilation and curettage S/P hysterectomy secondary to endometriosis, tubes also removed. Ovaries retained S/P tonsillectomy Family History Father Diabetes Coronary heart disease Myocardial infarction Hypertension Mother Diabetes Coronary heart disease Hypertension Stroke Slow to wake up after anesthesia Brother Diabetes Grandmother (Maternal) Diabetes Myocardial infarction Hypertension Grandmother (Paternal) Coronary heart disease Aunt Breast cancer Uterine cancer Paternal Grandfather (Maternal) Colorectal cancer Uncle Colorectal cancer Family/Other Ovarian cancer Multiple cousins Denies family history of Prostate cancer Lung cancer Social History Smoking Status: Current every day smoker Tobacco Type: Cigarettes Age Started Using Tobacco: 11; Age Quit Using Tobacco: 55; packs per day: 0.5; Cigarettes Per Day: 1/2 pack; Second Hand Exposure: No; Hx Alcohol Use: No Hx Substance Use: Yes Prescribed Medications: Marijuana Last Used Substance: Days (ago) Last Used Substance Other:: yesterday Substance Use Type Other:: medical marijuana card Preferred Language: Romansh Communication Ability: Effective Visual Impairment: No Limitations Hearing Ability: Normal Finisher Map And Chart Required: No Beliefs That Will Affect Care: None marital status: Current Living Situation: Spouse current occupational status: unemployed How many Children do You have: 2 Other Information That Helps Us Care for You: No Feels Safe at Home: Yes Safety Concerns: Feels Safe At This Time Childhood Exposure to Second-Hand Smoke: Yes Diet Comment: does not follow diet caffeine: Yes (ice tea) during the past year weight has: other Dental Care, Regularly: Yes Physical Activity Frequency: 1-2 Times per Week Physical Activity Frequency Comment: swimming Seatbelt Use: always Sunscreen Use: No Assistive Devices: None Review of Systems Review of Systems: All systems reviewed & are unremarkable except as noted in Subjective Physical Exam Physical Exam: GENERAL : No acute distress. EYES: No icterus, gaze conjugate. Pupils equal round and reactive to light NOSE: No evidence of epistaxis. Nasal cannula in place MOUTH: No lesions or candidiasis. Mucosa moist NECK: Supple LUNGS: Bibasilar crackles. No rhonchi. No bronchospasm. HEART: Regular, rate controlled ABDOMEN: Soft, NT, ND, BS Present EXTREMITIES: No LE edema, pedal pulses intact and equal bilaterally. NEURO: A&OX3 Results & Data Results & Data ([facility]) Vital Signs (Past 12 Hours) Vital Signs Pulse Resp BP Pulse Ox 09/04/20 16:30 68 11 L 68/47 L 09/04/20 16:21 67 13 92/56 L 09/04/20 16:15 70 17 94/54 L 09/04/20 16:00 68 15 82/49 L 09/04/20 15:53 69 17 88/53 L 09/04/20 15:40 68 14 63/42 L 94 09/04/20 15:30 66 19 68/42 L 98 09/04/20 15:25 65 19 74/38 L 98 09/04/20 15:15 64 14 54/33 L 97 09/04/20 15:01 62 18 61/34 L 97 09/04/20 14:59 96 09/04/20 14:48 62 16 83/35 L 93 09/04/20 14:14 93 09/04/20 14:08 60 18 68/41 L 93 09/04/20 13:59 61 22 61/34 L 92 Laboratory Results 09/04/20 14:35 09/04/20 14:35 09/04/20 14:35 Troponin I < 0.015 Lactic acid 2.5 Diagnostic Findings XR chest 1V portable CLINICAL HISTORY: weakness COMPARISON STUDY: Chest radiograph June 02, 2020. FINDINGS: Lung volumes are normal. Lungs are clear. There is no pneumothorax or pleural effusion. Cardiac size is normal. Mediastinal contours are normal. There is no evidence for pulmonary edema. Mild interstitial prominence remains unchanged. IMPRESSION: No acute cardiopulmonary findings. No change in mild interstitial thickening. ACT 112: Negative or not required by law. Electronically signed by: Emeterio Dumont M.D. 09/04/2020 3:02 PM Code Status & VTE Plan Code Status Full resuscitation; level I VTE Prophylaxis Plan VTE Prophylaxis will be ordered: Yes Supervising Physician Co-Signing Physician Notes PA Supervision note: I have personally seen and examined the patient and discussed and verified the mahmood points of the history and physical along with the plan with GUILHERME Duarte with the following exceptions and/or additions: Pt is a 55 yo female with multiple comorbid conditions as above, here with lightheadedness and profound hypotension in setting of profuse diarrhea x 1 week. Having at least 5 loose stools a day, non bloody, no N/V. Also continued to tke metformin, lasix, diclofenac, and was on Bactrim for a foot ulcer infection. BP at [facility] found ot be 60s systolic and sent to ER. [employer] in ER 4.0 and had HAN. SHe has not made any urine she reports since this AM. No abd pain,, no fevers. History and ROS reviewed as above. Has a headache. Vitals reviewed-remains hypotensive Morbidly obese NAD, AAOx3 RRR no mgr CTAB no wcr Abd +BS , obese, NT ND Ext trace pitting edema ankles bilat Skin : 0.5cm superficial ulcers without any erythema or drainage -1 on right dorsal foot and 1 on left medial great toe 55 yo female here with diarrhea, hypotension, and HAN -changes made to PA note above mainly to cinlude: check CT abd/pel for renal obstruction, cause of diarrhea-colitis, etc. -dc diclofenac, HOLD gabapentin for HAN, hold lasix -give 1L NS bolus now and change IVFs to NS WITHOUT KCl -replace more IV magnesium May need vasopressors overnight is BPs not improving. Fortunately she is mentating PG Care Time/CCT Total # of Minutes Spent Total Time Spent with Patient: Total time spent is greater than 50% in coordination of care (as documented) at patient's floor/unit and/or counseling patient:70 minutes Coding Level of Care Code 47491 Initial Inpt Care Lvl 3 Diagnoses Hypotension I95.9 Hypotension type: unspecified hypotension type HAN (acute kidney injury) N17.9 Hypomagnesemia E83.42 MSSA (methicillin susceptible Staphylococcus aureus) infection A49.01 Leukocytosis D72.829 Leukocytosis type: unspecified Diarrhea R19.7 COPD (chronic obstructive pulmonary disease) with chronic bronchitis J44.9 Tobacco abuse Z72.0 Marijuana abuse F12.10 Type II diabetes mellitus, uncontrolled E11.65 Coronary artery disease I25.10 Hypothyroidism E03.9 Severe obstructive sleep apnea-hypopnea syndrome G47.33 Migraine headache G43.909 Depression with anxiety F41.8 Hypertension I10 Insomnia G47.00 Bipolar disorder F31.9 Chronic diastolic CHF (congestive heart failure) I50.32 Peptic ulcer disease K27.9 DVT prophylaxis Z29.9 Time Spent (min) 70 (1) Leukocytosis Leukocytosis type: unspecified Qualified Code(s): D72.829 - Elevated white blood cell count, unspecified (2) Hypotension Hypotension type: unspecified hypotension type Qualified Code(s): I95.9 - Hypotension, unspecified
[2020-09-04] MEDS ORDERED: GLUCOSE 40% GEL 15 GM TUBE PO PRN (18:37)
[2020-09-04] MEDS ORDERED: GLUCAGON FOR INJ 1 MG VIAL SQ PRN (18:37)
[2020-09-04] MEDS ORDERED: DEXTROSE 50% 50 ML SYRINGE IV PRN (18:37)
[2020-09-04] MEDS ORDERED: DC ALL PREVIOUSLY ORDERED DIABETES MEDS ONE (18:37)
[2020-09-04] MEDS ORDERED: ALBUTEROL HFA 8 GM INHALER INH PRN (18:37)
[2020-09-04] MEDS ORDERED: ONDANSETRON INJ 2 MG/ML 2 ML VIAL IV PRN (18:37)
[2020-09-04] MEDS ORDERED: GLUCOSE 10 TABS/TUBE PO PRN (18:37)
[2020-09-04] MEDS ORDERED: CARBOHYDRATES FOR HYPOGLYCEMIA PO PRN (18:37)
[2020-09-04] MEDS ORDERED: ACETAMINOPHEN 325 MG TAB PO PRN (18:37)
[2020-09-04] MEDS ORDERED: INSULIN ASPART 100 UNITS/ML 3 ML PEN SQ SCH (18:37)
[2020-09-04] MEDS ORDERED: LACTATED RINGER'S 500 ML IV ONE (19:28)
[2020-09-04] MEDS ORDERED: NSS + 20MEQ KCL 20 MEQ/1,000 ML BAG IV SCH (19:30)
[2020-09-04 19:51] LABS: BUN Creatinine Ratio 12.1 (10-20); Calcium 7.7 mg/dl (8.5-10.1); Creatinine Clr Calc Pharmacy 23.1 ml/min; Est GFR (African American) 16.2 ml/min; Magnesium 1.3 mg/dl (1.8-2.4); Potassium 3.8 mmol/L (3.5-5.1)
[2020-09-04] MEDS: MAGNESIUM OXIDE 400 MG TAB PO SCH (20:01)
[2020-09-04] MEDS: TOPIRAMATE 50 MG TAB PO SCH (20:02)
[2020-09-04] MEDS: INSULIN ASPART 100 UNITS/ML 3 ML PEN SC SCH (20:04)
[2020-09-04] MEDS: CLOPIDOGREL BISULFATE 75 MG TAB PO SCH (20:06)
[2020-09-04] MEDS: ATORVASTATIN 40 MG TAB PO SCH (20:06)
[2020-09-04] MEDS: ATOMOXETINE HCL 40 MG CAPSULE PO SCH (20:06)
[2020-09-04] MEDS: METOPROLOL TARTRATE 25 MG TAB PO SCH (20:07)
[2020-09-04] MEDS: SODIUM CHLORIDE 0.9% 1000ML 1,000 ML IV SCH (20:19)
[2020-09-04 20:28] LABS: Basophils # (auto) 0.03 K/uL (0-0.2); Basophils % (auto) 0.2 %; Eosinophils % (auto) 0.8 %; Hematocrit (blood only) 39.1 % (37-47); Hemoglobin 12.7 g/dL (12.0-16.0); Immature Granulocytes # (auto) 0.06 K/uL (0.00-0.02); Immature Granulocytes % (auto) 0.5 %; Lymphocytes # (auto) 3.11 K/uL (1.2-3.4); Lymphocytes % (auto) 25.2 %; Mean Corpuscular Hemoglobin 27.7 pg (25-34); Mean Corpuscular Hgb Conc 32.5 g/dL (32-36); Mean Corpuscular Volume 85.2 fL (80-100); Monocytes # (auto) 0.63 K/uL (0.11-0.59); Monocytes % (auto) 5.1 %; Neutrophils # (auto) 8.39 K/uL (1.4-6.5); Neutrophils % (auto) 68.2 %; Platelet Count 301 K/uL (130-400); RDW Coefficient of Variation 14.2 % (11.5-14.5); RDW Standard Deviation 44.5 fL (36.4-46.3); Red Blood Count 4.59 M/uL (4.2-5.4); White Blood Count 12.32 K/uL (4.8-10.8)
[2020-09-04] MEDS ORDERED: INSULIN GLARGINE SOLOSTAR 100 UNITS/ML 3 ML PEN SC SCH (21:00)
[2020-09-04] MEDS ORDERED: DICLOFENAC SODIUM 25 MG TABDR PO SCH (21:00)
[2020-09-04] MEDS ORDERED: GABAPENTIN 800 MG TAB PO SCH (21:00)
[2020-09-04] MEDS ORDERED: INSULIN DETEMIR FLEXPEN/FLEX TOUCH 100 UNITS/ML 3ML SC SCH (21:00)
[2020-09-04] MEDS: HEPARIN SOD 5,000 UNIT/0.5 ML VIAL SQ SCH (21:07)
[2020-09-04] MEDS: BUTALBITAL/ACETAMIN/CAFFEINE TAB PO PRN (21:09)
[2020-09-04 22:32] LABS: Appearance Urine Clear (Clear); Bilirubin Urine Negative (Negative); Blood Urine Negative (Negative); Color Urine Yellow; Glucose Urine UA Negative (Negative); Ketones Urine Negative (Negative); Leukocyte Esterase Urine Negative (Negative); Nitrite Urine Negative (Negative); Protein Urine Negative (Negative); Specific Gravity Urine 1.015 (1.000-1.030); Urobilinogen Urine Negative (Negative)
[2020-09-05] MEDS: BUTALBITAL/ACETAMIN/CAFFEINE TAB PO PRN ×4 (01:29→20:01)
[2020-09-05] MEDS ORDERED: INSULIN ASPART 100 UNITS/ML 3 ML PEN SC SCH (02:00)
[2020-09-05] MEDS: SODIUM CHLORIDE 0.9% 1000ML 1,000 ML IV SCH ×2 (05:38→16:53)
[2020-09-05] MEDS: LEVOTHYROXINE SODIUM 50 MCG TABLET PO SCH (05:38)
[2020-09-05] MEDS: HEPARIN SOD 5,000 UNIT/0.5 ML VIAL SQ SCH ×3 (05:39→21:47)
--- NOTE | 2020-09-05 07:31 | CT Scan Report ---
CT OF THE ABDOMEN AND PELVIS WITHOUT CONTRAST CLINICAL HISTORY: renal failure,diarrhea COMPARISON STUDY: CT of the abdomen and pelvis October 31, 2019. Pelvic ultrasound August 22, 2020. TECHNIQUE: Axial images of the abdomen and pelvis were obtained without IV contrast. Images were revi ewed in the axial, sagittal, and coronal planes. Automated exposure control was utilized for the michael dy. A dose lowering technique was utilized adhering to the principles of ALARA. FINDINGS: No pneumatosis, free air or portal venous gas is present. Evaluation of the abdomen is subo ptimal on this unenhanced exam. In addition, there is artifact from body wall contacting the gantry. Trace perihepatic ascites is noted. Hepatic steatosis and hepatomegaly. There is no biliary ductal di latation status post cholecystectomy. There is no hydronephrosis. Unenhanced images of the spleen, ad renal glands, kidneys and pancreas are unremarkable. Evidence for previous ventral hernia repair is n oted. A Kebede balloon within the bladder which is collapsed. Sigmoid diverticulosis is noted. There i s no evidence for acute diverticulitis. Some mucosal fat deposition within the ascending colon is chr onic. The appendix is not visualized. No acute fracture or suspicious lesion is identified within the visualized skeletal structures. IMPRESSION: 1. No acute process within the abdomen or pelvis on unenhanced exam. 2. No bowel obstruction. Colonic diverticulosis without evidence for acute diverticulitis. 3. Hepatic steatosis and hepatomegaly. 4. Trace perihepatic ascites. 5. No urinary calculi or hydronephrosis. ACT 112: Negative or not required by law. Electronically signed by: Emeterio Dumont M.D. 09/05/2020 7:30 AM
[2020-09-05 08:14] LABS: Basophils # (auto) 0.04 K/uL (0-0.2); Basophils % (auto) 0.4 %; Eosinophils # (auto) 0.08 K/uL (0-0.5); Eosinophils % (auto) 0.8 %; Hematocrit (blood only) 38.6 % (37-47); Hemoglobin 12.3 g/dL (12.0-16.0); Immature Granulocytes # (auto) 0.04 K/uL (0.00-0.02); Immature Granulocytes % (auto) 0.4 %; Lymphocytes # (auto) 2.46 K/uL (1.2-3.4); Lymphocytes % (auto) 23.8 %; Mean Corpuscular Hemoglobin 27.5 pg (25-34); Mean Corpuscular Hgb Conc 31.9 g/dL (32-36); Mean Corpuscular Volume 86.2 fL (80-100); Monocytes # (auto) 0.54 K/uL (0.11-0.59); Monocytes % (auto) 5.2 %; Neutrophils # (auto) 7.19 K/uL (1.4-6.5); Neutrophils % (auto) 69.4 %; Platelet Count 272 K/uL (130-400); RDW Coefficient of Variation 14.4 % (11.5-14.5); RDW Standard Deviation 45.4 fL (36.4-46.3); Red Blood Count 4.48 M/uL (4.2-5.4); White Blood Count 10.35 K/uL (4.8-10.8)
[2020-09-05 08:45] LABS: BUN Creatinine Ratio 14.6 (10-20); Calcium 7.5 mg/dl (8.5-10.1); Creatinine Clr Calc Pharmacy 33.8 ml/min; Est GFR (African American) 25.6 ml/min; Est GFR (Non-African American) 22.1 ml/min; Magnesium 1.9 mg/dl (1.8-2.4); Potassium 3.5 mmol/L (3.5-5.1)
[2020-09-05] MEDS: INSULIN ASPART 100 UNITS/ML 3 ML PEN SC SCH ×4 (08:53→21:00)
[2020-09-05] MEDS: CHOLECALCIFEROL 1,000 UNITS 25 MCG TAB PO SCH (08:53)
[2020-09-05] MEDS: FAMOTIDINE 20 MG TAB PO SCH (08:53)
[2020-09-05] MEDS: PANTOprazole 40 MG TAB PO SCH (08:54)
[2020-09-05] MEDS: MAGNESIUM OXIDE 400 MG TAB PO SCH ×2 (08:54→21:46)
[2020-09-05] MEDS: TOPIRAMATE 50 MG TAB PO SCH ×2 (08:54→21:47)
[2020-09-05] MEDS: ATORVASTATIN 40 MG TAB PO SCH ×2 (08:54→21:46)
[2020-09-05] MEDS: DULoxetine HCL 60 MG CAP PO SCH (08:54)
[2020-09-05] MEDS: ASPIRIN 81 MG ECTAB PO SCH (08:54)
[2020-09-05] MEDS: FENOFIBRATE NANOCRYSTALLIZED 145 MG TABLET PO SCH (08:54)
[2020-09-05] MEDS: UMECLIDINIUM BROMIDE 62.5MCG/BLISTER 7 PUFFS/INHALER INH SCH (08:55)
[2020-09-05] MEDS: ARIPIprazole 1 MG/ML ORAL SOLN 150 ML BTL PO SCH (08:55)
[2020-09-05] MEDS: FLUTICASONE/VILANTEROL 100/25MCG 14 PUFFS/INHALER INH SCH (08:55)
[2020-09-05] MEDS: DULoxetine HCL 30 MG CAP PO SCH (08:55)
[2020-09-05] MEDS ORDERED: MAGNESIUM SULFATE / D5W 1 GM/100 ML BAG IV ONE (09:30)
[2020-09-05 10:21] LABS: Estimated Average Glucose 252 mg/dl; Hemoglobin A1C 10.4 % (4.5-5.6)
--- NOTE | 2020-09-05 14:37 | Pharmacy Report ---
Pharmacy Glycemic Short Note 2 - Date of Service September 05, 2020 - Glycemic Short BSG Results (Last 24 hours): 09/04/20 09/04/20 09/04/20 14:35 16:50 19:00 Glucose 90 92 POC Glucose 97 09/04/20 09/05/20 09/05/20 19:33 01:30 07:39 Glucose POC Glucose 93 93 101 H 09/05/20 09/05/20 07:53 11:22 Glucose 91 POC Glucose 105 H OUTPATIENT ANTIDIABETIC REGIMEN: * Levemir 80 units HS, Novolog 10 units breakfast/lunch and 20 units with dinner, Victoza, metformin * A1c - 10.4% ASSESSMENT: * 55 year old admitted with HAN/hypotension. Type 2 diabetic managed on higher doses of insulin at home. Per notes, poorer PO intake recently * Received total fo 47 units of insulin yesterday, of which 40 units were basal insulin * Fasting BSG 91 mg/dL - plan to continue with similar basal, may decrease slightly as PO intake today remains poorer PLAN FOR INPATIENT GLYCEMIC CONTROL: * Hold outpatient oral diabetes medications * Basal insulin * Lantus 30-35 units HS * Bolus insulin * NovoLog per scale ACHS or Q6hrs while NPO * Goal Range: Low 120 mg/dL - High 160 mg/dL * Correction Factor: 25 mg/dL/unit * Nutritional / Prandial insulin per carb ratio of 1 unit per 9 grams CHO consumed PLAN FOR DISCHARGE: * tbd
--- NOTE | 2020-09-05 17:37 | Hospitalist Progress Note ---
Date of Service September 05, 2020 Assessment & Plan (1) Hypotension: Plan: Impression: 7-day history of being treated for MSSA with Bactrim. Ongoing diarrhea for the past 5 days. Patient presents with dizziness and hypotension. Improvement to blood pressure with 1 L of normal saline solution. Currently running an additional 500 cc bolus. Lactic acid 2.5. WBCs 14.9. Afebrile. Magnesium level 1.2. HAN improved. 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 Baseline 1.2. Reduce IVF to 75 mL/hr OK to d/c newell but still watch strict I&Os No need for further antibiotics OK to downgrade to medical No BM - discontinue isolation precautions for C. diff Await stool culture Echocardiogram reviewed. No valvular disorder. Left ventricular ejection fraction preserved. 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 Follow serial lab (3) Hypomagnesemia: Plan: Secondary to diarrhea Potassium stable at 3.5 Magnesium was 1.2 on admission - now 1.9 with 4 gms Mag sulfate Check magnesium level in the morning (4) MSSA (methicillin susceptible Staphylococcus aureus) infection: Plan: Patient received 7 days of Bactrim Given 3 g of Unasyn in the emergency department Procalcitonin negative No further antibiotics at this time (5) Leukocytosis: Plan: Improved to 10.35 Procalcitonin negative (0.37) Blood cultures x2 NGTD Urine is negative for apparent infection Afebrile (6) Diarrhea: Plan: Secondary to Bactrim No further diarrhea since admission Check stool culture Discontinue isolation precautions for c. diff (7) COPD (chronic obstructive pulmonary disease) with chronic bronchitis: Plan: Continue usual home medications Follows with Dr. Neumann in the pulmonary office No acute hypoxia Continue supplemental oxygen at night for nocturnal hypoxia Continue CPAP for MICHAEL/OHVS (8) Tobacco abuse: Plan: Continue to encourage smoking cessation Patient does not desire NicoDerm patch at this time (9) Marijuana abuse: Plan: Daily use for chronic pain and anxiety (10) Type II diabetes mellitus, uncontrolled: Plan: Hemoglobin A1c 9.0% on 05/24/2020 and is now 10.4 Patient may benefit from stopping oral medications and using Lantus and Novolog as an outpatient Suggest endocrine visit as an outpatient For now continue with basal insulin and Novolog SSI Continue to hold all outpatient medications Glycemic consult requested from pharmacy. Appreciate their input Also discussed the need for continued intentional weight loss (11) Coronary artery disease: Plan: Continue to hold antihypertensives While hypotension has improved, she still is only in the low 100s regarding her SBP Continue Plavix and aspirin (12) Hypothyroidism: Plan: Continue levothyroxine TSH is 2.32 (13) Severe obstructive sleep apnea-hypopnea syndrome: Plan: Patient does have CPAP at home Continue with CPAP per protocol while inpatient Further management as an outpatient (14) Migraine headache: Plan: Migraine headache has resolved Toradol in the ED Continue Fioricet and Topamax Avoid narcotics and opiates at this time secondary to hypotension (15) Depression with anxiety: Plan: Continue usual home medications (16) Hypertension: Plan: Continue to hold home antihypertensives at this time secondary to hypotension Anticipate that we will restart tomorrow based on clinical response (17) Insomnia: Plan: Hold all medications at this time secondary to hypotension (18) Bipolar disorder: Plan: Mood is stable Continue home medications (19) Chronic diastolic CHF (congestive heart failure): Plan: No clinical evidence of heart failure at this time Patient currently hypotensive Continue to hold furosemide Echocardiogram from March with preserved ventricular function (20) Peptic ulcer disease: Plan: Continue famotidine and pantoprazole No acute complaints (21) DVT prophylaxis: Plan: No SCDs or ROSHAN hose at this time secondary to chronic lower extremity wounds Heparin 7500 units subcu every 8 hours Ambulate as tolerated with assistance Admission and Anticipated Discharge Date Admission Date: September 04, 2020 Supervising Physician Co-Signing Physician Notes PA Supervision Note: I did not personally see or examine the patient today, but I verified all mahmood points of GUILHERME Duarte's assessment and plan with the following exceptions/additions: 55 yo female here with diarrhea, hypotension, and HAN CT abd/pel ruled out colitis and renal obstruction as cause of acute kidney injury -Agree with discontinuing Newell catheter and monitoring urine output -Acute kidney injury is improving-continue to hold diclofenac, HOLD gabapentin for HAN, hold lasix Lower IV fluids down on the right -Diarrhea has resolved spontaneously but if persists, would check C. difficile and stool culture Follow BMP in the morning Follow blood cultures Okay to downgrade to medical floor Subjective Attending: Dr. Restrepo Patient doing much better today. More energy. Denies any pain. Headache has resolved. No bowel movement. No abdominal pain. No feelings of constipation or cramping. Oral intake has improved. Requesting Newell catheter removal. Good urine output. No fever, chills, sweats, rigors. No acute complaints. Review of Systems Review of Systems: All systems reviewed & are unremarkable except as noted in Subjective Physical Exam Physical Exam: GENERAL : No acute distress EYES: No icterus, gaze conjugate NOSE: No evidence of epistaxis MOUTH: No lesions or candidiasis NECK: Supple LUNGS: CTA B/L, no wheezes, rales or rhonchi. Rales have resolved. HEART: Regular, rate controlled ABDOMEN: Soft, NT, ND, BS Present EXTREMITIES: No LE edema, pedal pulses intact and equal bilaterally NEURO: A&OX3 Results & Data Results & Data ([facility]) Vital Signs (Past 12 Hours) Vital Signs Temp Pulse Resp BP Pulse Ox Pulse Ox 09/05/20 15:34 36.4 C L 79 20 94/58 L 93 09/05/20 11:40 36.2 C L 80 18 101/66 92 09/05/20 08:00 97 Laboratory Results 09/05/20 07:53 09/05/20 07:53 Mag 1.9 today PG Care Time/CCT Total # of Minutes Spent Total Time Spent with Patient: Total time spent is greater than 50% in coordinat ion of care (as documented) at patient's floor/unit and/or counseling patient: 30 minutes Coding Level of Care Code 65080 Subseq Hosp Care Lvl 3 Diagnoses Hypotension I95.9 Hypotension type: unspecified hypotension type HAN (acute kidney injury) N17.9 Hypomagnesemia E83.42 MSSA (methicillin susceptible Staphylococcus aureus) infection A49.01 Leukocytosis D72.829 Leukocytosis type: unspecified Diarrhea R19.7 COPD (chronic obstructive pulmonary disease) with chronic bronchitis J44.9 Tobacco abuse Z72.0 Marijuana abuse F12.10 Type II diabetes mellitus, uncontrolled E11.65 Coronary artery disease I25.10 Hypothyroidism E03.9 Severe obstructive sleep apnea-hypopnea syndrome G47.33 Migraine headache G43.909 Depression with anxiety F41.8 Hypertension I10 Insomnia G47.00 Bipolar disorder F31.9 Chronic diastolic CHF (congestive heart failure) I50.32 Peptic ulcer disease K27.9 DVT prophylaxis Z29.9 Time Spent (min) 40 (1) Leukocytosis Leukocytosis type: unspecified Qualified Code(s): D72.829 - Elevated white blood cell count, unspecified (2) Hypotension Hypotension type: unspecified hypotension type Qualified Code(s): I95.9 - Hypotension, unspecified
[2020-09-05] MEDS ORDERED: INSULIN DETEMIR FLEXPEN/FLEX TOUCH 100 UNITS/ML 3ML SC SCH (21:00)
[2020-09-05] MEDS: CLOPIDOGREL BISULFATE 75 MG TAB PO SCH (21:46)
[2020-09-05] MEDS: ATOMOXETINE HCL 40 MG CAPSULE PO SCH (21:47)
[2020-09-05] MEDS: METOPROLOL TARTRATE 25 MG TAB PO SCH (21:48)
[2020-09-06] MEDS: BUTALBITAL/ACETAMIN/CAFFEINE TAB PO PRN ×3 (00:23→09:33)
[2020-09-06] MEDS: SODIUM CHLORIDE 0.9% 1000ML 1,000 ML IV SCH (03:25)
[2020-09-06] MEDS: HEPARIN SOD 5,000 UNIT/0.5 ML VIAL SQ SCH ×2 (05:20→14:03)
[2020-09-06] MEDS: LEVOTHYROXINE SODIUM 50 MCG TABLET PO SCH (05:36)
[2020-09-06] MEDS: INSULIN ASPART 100 UNITS/ML 3 ML PEN SC SCH ×2 (08:50→14:00)
[2020-09-06] MEDS: TOPIRAMATE 50 MG TAB PO SCH (08:56)
[2020-09-06] MEDS: MAGNESIUM OXIDE 400 MG TAB PO SCH (08:56)
[2020-09-06] MEDS: PANTOprazole 40 MG TAB PO SCH (08:56)
[2020-09-06] MEDS: DULoxetine HCL 30 MG CAP PO SCH (08:57)
[2020-09-06] MEDS: FENOFIBRATE NANOCRYSTALLIZED 145 MG TABLET PO SCH (08:57)
[2020-09-06] MEDS: ASPIRIN 81 MG ECTAB PO SCH (08:57)
[2020-09-06] MEDS: FAMOTIDINE 20 MG TAB PO SCH (08:57)
[2020-09-06] MEDS: CHOLECALCIFEROL 1,000 UNITS 25 MCG TAB PO SCH (08:57)
[2020-09-06] MEDS: ATORVASTATIN 40 MG TAB PO SCH (08:57)
[2020-09-06] MEDS: DULoxetine HCL 60 MG CAP PO SCH (08:57)
[2020-09-06] MEDS: UMECLIDINIUM BROMIDE 62.5MCG/BLISTER 7 PUFFS/INHALER INH SCH (08:58)
[2020-09-06] MEDS: FLUTICASONE/VILANTEROL 100/25MCG 14 PUFFS/INHALER INH SCH (08:58)
[2020-09-06] MEDS: ARIPIprazole 1 MG/ML ORAL SOLN 150 ML BTL PO SCH (08:59)
[2020-09-06 09:23] LABS: BUN Creatinine Ratio 21.5 (10-20); Calcium 7.2 mg/dl (8.5-10.1); Creatinine Clr Calc Pharmacy 66.3 ml/min; Est GFR (African American) 57.8 ml/min; Est GFR (Non-African American) 49.8 ml/min; Magnesium 1.9 mg/dl (1.8-2.4); Potassium 3.8 mmol/L (3.5-5.1)
--- NOTE | 2020-09-06 14:44 | Pharmacy Report ---
Pharmacy Glycemic Short Note 2 - Date of Service September 06, 2020 - Glycemic Short BSG Results (Last 24 hours): 09/05/20 09/05/20 09/06/20 16:45 20:11 07:40 Glucose 85 POC Glucose 107 H 152 H 09/06/20 09/06/20 08:05 12:13 Glucose POC Glucose 96 142 H OUTPATIENT ANTIDIABETIC REGIMEN: * Levemir 80 units HS, Novolog 10 units breakfast/lunch and 20 units with dinner, Victoza, metformin * A1c - 10.4% ASSESSMENT: 09/06/20: * Patient received total 42 units of insulin yesterday; 35 units basal + 7 units bolus. * Fasting BSG today 96 mg/dl. Continued basal dosing the same * Post prandial BSGs are also well controlled. No change in Novolog parameters today. * Of note, renal function has improved significantly today. 09/05/20: * 55 year old admitted with HAN/hypotension. Type 2 diabetic managed on higher doses of insulin at home. Per notes, poorer PO intake recently * Received total fo 47 units of insulin yesterday, of which 40 units were basal insulin * Fasting BSG 91 mg/dL - plan to continue with similar basal, may decrease slightly as PO intake today remains poorer PLAN FOR INPATIENT GLYCEMIC CONTROL: * Hold outpatient oral diabetes medications * Basal insulin: continued * Lantus 30-35 units HS * Bolus insulin: continued * NovoLog per scale ACHS or Q6hrs while NPO * Goal Range: Low 120 mg/dL - High 160 mg/dL * Correction Factor: 25 mg/dL/unit * Nutritional / Prandial insulin per carb ratio of 1 unit per 9 grams CHO consumed PLAN FOR DISCHARGE: * HbA1c = 10.4% indicates poorly controlled diabetes. * Patient has been requiring less insulin so far while admitted compared to home insulin regimen. * Would question compliance on the current anti-diabetic regimen. Patient is on two insulins, Metformin and Victoza. * Possibly resume all of them on discharge and provide education to improve compliance. Follow up with outpatient provider for management.
--- NOTE | 2020-09-06 15:12 | Discharge Summary ---
Date of Service September 06, 2020 Admission HPI Per Admitting Provider Attending: Dr. Restrepo This is a 55-year-old female with a complicated past medical history including MSSA infection of the foot on Bactrim, type 2 diabetes mellitus with A1c of 9.0%, chronic kidney disease baseline creatinine 1.2, COPD with chronic bronchitis, asthma, nocturnal hypoxia, obstructive sleep apnea/obesity hypoventilation syndrome, CPAP use, ongoing tobacco abuse, peptic ulcer disease, daily marijuana use, chronic diastolic congestive heart failure, hypertriglyceridemia, dyslipidemia, migraine headaches, bipolar disorder, obsessive-compulsive disorder, glaucoma, hypertension, hypothyroidism, vitamin D deficiency, depression with anxiety, morbid obesity with a BMI of 45.4 kg/m. The patient follows with wound care clinic and was found to have apparent infection last week. The wound was swabbed and was positive for MSSA on 08/28/2020. Was patient started on Bactrim for the infection, she began to have diarrhea 4-5 times a day and copious amounts. Over the weekend she has felt dizzy and presented to the wound care clinic today for evaluation. She was found to have a blood pressure of 60 over palp and was referred to the emergency department for further evaluation. EKG was performed and shows no new changes. Echocardiogram was reviewed from 03/23/2020 and showed normal wall motion and left ventricular ejection fraction of 60 to 65% with normal systolic function and no valvular abnormalities. Patient was given 1500 mL of normal saline solution and systolic pressure improved to 92 with a MAP of 68. Lactic acid was 2.5. WBCs were 14.9. No fever, chills, sweats, rigors. No nausea or vomiting. No other symptoms other than copious amounts of diarrhea. Patient was given 3 g of Unasyn while in the emergency department. Foot was examined and there is no sign of extension of infection including erythema or warmth. Patient does have COPD and is a daily smoker of approximately 1/2 pack/day. In review of her most recent pulmonary note she had quit smoking but reports to me that she picked it up again. She also smokes marijuana daily as supplied by local dealer. She does not have a medical prescription for marijuana. Regarding her diabetes, patient states that she takes all medications as prescribed. She has a hemoglobin A1c of 9.0%. She has not had any significantly high sugars. Aside from a migraine headache, diarrhea and lightheadedness, she has no other acute complaints. I did discuss CODE STATUS and patient desires to be a full code; level I Admission Exam Per Admitting Provider GENERAL : No acute distress. EYES: No icterus, gaze conjugate. Pupils equal round and reactive to light NOSE: No evidence of epistaxis. Nasal cannula in place MOUTH: No lesions or candidiasis. Mucosa moist NECK: Supple LUNGS: Bibasilar crackles. No rhonchi. No bronchospasm. HEART: Regular, rate controlled ABDOMEN: Soft, NT, ND, BS Present EXTREMITIES: No LE edema, pedal pulses intact and equal bilaterally. NEURO: A&OX3 Principal Diagnosis Hypotension Acute kidney injury Discharge Exam GENERAL : No acute distress EYES: No icterus, gaze conjugate NOSE: No evidence of epistaxis MOUTH: No lesions or candidiasis NECK: Supple LUNGS: CTA B/L, no wheezes, rales or rhonchi HEART: Regular, rate controlled ABDOMEN: Soft, NT, ND, BS Present EXTREMITIES: No LE edema, pedal pulses intact NEURO: A&OX3 Discharge Data Allergies Allergy/AdvReac Type Severity Reaction Status Date / Time No Known Allergies Allergy Verified 09/04/20 15:46 Consultations 09/04/20 15:55 ED Decision to Admit Stat Ordered Studies 09/04/20 19:55 CT abd pelvis wo con Urgent Diabetes Follow up Diabetes Follow-up Needed for HgbA1c >9% Hospital Course (1) MSSA (methicillin susceptible Staphylococcus aureus) infection: Patient received 7 days of Bactrim as an outpatient Given 3 g of Unasyn in the emergency department Procalcitonin negative No further antibiotics were administered this hospital stay (2) Diarrhea: Suspected to be secondary to Bactrim No further diarrhea since admission Stool was not checked for C. difficile as she only had one loose stool prior to discharge Resolved by the time of discharge (3) COPD (chronic obstructive pulmonary disease) with chronic bronchitis: Continue usual home medications Follows with Dr. Neumann in the pulmonary office No acute hypoxia Continue supplemental oxygen at night for nocturnal hypoxia Continue CPAP for MICHAEL/OHVS (4) Tobacco abuse: Continue to encourage smoking cessation Patient does not desire NicoDerm patch at this time (5) Marijuana abuse: Daily use for chronic pain and anxiety (6) Type II diabetes mellitus, uncontrolled: Hemoglobin A1c 9.0% on 05/24/2020 and is now 10.4 Continue home medications on discharge Suggest endocrine visit as an outpatient Glycemic consult requested from pharmacy. Appreciate their input Also discussed the need for continued intentional weight loss (7) Coronary artery disease: Resume metoprolol While hypotension has improved, she still is only in the low 100s regarding her SBP Discontinue verapamil on discharge Continue Plavix and aspirin at home (8) Hypothyroidism: Continue levothyroxine TSH is 2.32 (9) Severe obstructive sleep apnea-hypopnea syndrome: Patient does have CPAP at home Continue with CPAP per protocol while inpatient Further management as an outpatient (10) Migraine headache: Migraine headache has resolved Toradol in the ED Continue Fioricet and Topamax Avoid narcotics and opiates as much as possible at this time secondary to hypotension (11) Depression with anxiety: Continue usual home medications (12) Hypertension: Continue metoprolol tartrate on discharge Discontinue verapamil for hypotension Advised patient to monitor blood pressure at home and report values to family practice with hospital follow-up (13) Insomnia: Resume home meds occasions on discharge (14) Bipolar disorder: Mood is stable Continue home medications (15) Chronic diastolic CHF (congestive heart failure): No clinical evidence of heart failure at this time Patient currently hypotensive Change furosemide to as needed based on weight and lower extremity edema at home Echocardiogram from March with preserved ventricular function (16) Peptic ulcer disease: Continue famotidine and pantoprazole No acute complaints (17) HAN (acute kidney injury): POA, secondary to diarrhea, dehydration, and hypotension resolved Total Time Total Time Spent Total Time Spent (In Minutes): 40 minutes Discharge Plan Discharge Items Patient Disposition: Home - Self-Care Reason For Visit: ACUTE KIDNEY INJURY/HYPOVOLEMIA/HYPOTENSION Discharge Diagnosis: ACUTE KIDNEY INJURY/HYPOVOLEMIA/HYPOTENSION Condition on Discharge: Fair Goals: Continue to work on weight loss and diet changes Activity: Resume your previous activity Lifting: Gradually increase as tolerated Bathing: No limitations Exercise/Sports: Gradually increase as tolerated Driving/Machine Use: No limitations Weightbearing: Full weightbearing Weightbearing Comment: weight bearing per the wound care clinic Non-emergency contact: Primary Care Provider Call non-emergency contact if: you have any medication questions and your symptoms worsen Follow-up/Referrals: Swati Berger DO [Primary Care Provider] - Diet: Carb Consistent or DM2 and Heart Healthy Addtl Attending Provider Instructions: [facility] department by the wound care clinic when you were found to have a low blood pressure. On arrival in the emergency department you had acute kidney failure and was started on IV fluids. The reason for your kidney failure is most likely you use of Bactrim which caused significant diarrhea. This was stopped and you were given 1 dose of another antibiotic, Unasyn. A procalcitonin level was obtained and was negative. This is an indicator that you did not have an active infection. Therefore, all antibiotics were stopped. Your kidney function has now returned to normal and on the day of discharge your creatinine was 1.22. You should continue to drink water to keep your fluid level normal. In addition, you were found to have low blood pressure. This is most likely due to the fact that you lost so much fluid from diarrhea that your volume was low. While in the hospital he received a total of 7.5 L of IV fluid in addition to oral intake. On the day of discharge her blood pressure was normal without the use of your blood pressure medications you take at home. You are being discharged on metoprolol but your verapamil has been discontinued. Please watch her blood pressure closely and if it starts to rise without the verapamil, please call your primary care physician for instructions. If you should have increasing diarrhea, increase your oral intake of water and call your primary care physician You are encouraged to continue to work on quitting smoking. Continue CPAP with supplemental oxygen at night. Do not smoke in the house as you have oxygen present. Your hemoglobin A1c was 10.1. Continue to work on diet and exercise as well as other lifestyle modifications to better control your diabetes. Pending Studies at Discharge: No Stand-Alone Forms: My [facility], Smoking Cessation Medications and DC Order Prescriptions: New gabapentin 300 mg capsule 300 mg PO TID Qty: 90 RF: 0 Continued topiramate 50 mg tablet 50 mg PO BID Qty: 60 RF: 0 magnesium oxide 400 mg (241.3 mg magnesium) tablet 400 mg PO BID Qty: 180 RF: 1 levothyroxine [Synthroid] 50 mcg tablet 50 mcg PO QAM Qty: 90 RF: 1 clopidogrel [Plavix] 75 mg tablet 75 mg PO QPM Qty: 90 RF: 1 fenofibrate 160 mg tablet 160 mg PO QAM Qty: 90 RF: 1 metformin 1,000 mg tablet 1,000 mg PO BID Qty: 180 RF: 1 nitroglycerin 0.4 mg tablet, sublingual 0.4 mg sublingual Q5M PRN (Reason: chest pain) Qty: 20 RF: 2 Victoza 3-Isidro 0.6 mg/0.1 mL (18 mg/3 mL) pen injector 1.8 mg SQ DAILY Qty: 9 RF: 2 pantoprazole 40 mg tablet,delayed release (DR/EC) 40 mg PO DAILY 30 Days Qty: 30 RF: 2 loratadine-pseudoephedrine [Claritin-D 24 Hour] 10-240 mg tablet extended release 24 hr 1 tab PO DAILY Qty: 30 RF: 0 aripiprazole 2 mg tablet 2 mg PO QAM RF: 0 atomoxetine [Strattera] 80 mg capsule 80 mg PO HS RF: 0 Vascepa 1 gram capsule 2 gm PO BID Qty: 120 RF: 3 metoprolol tartrate [Lopressor] 50 mg tablet 25 mg PO QPM Qty: 90 RF: 3 (DME) Oxygen Home Liters Per Minute See Rx Instructions .ROUTE .MEDSUPPLY Qty: 2 RF: 0 Spiriva Respimat 2.5 mcg/actuation mist 2 puff inhalation DAILY Qty: 4 RF: 2 insulin aspart U-100 [Novolog Flexpen U-100 Insulin] 100 unit/mL (3 mL) insulin pen See Rx Instructions SQ .COMPLEX RF: 0 Chantix 1 mg tablet 0.5 mg PO BID Qty: 56 RF: 0 uyohtdgohb-xbixlcmilyaqv-tchs 50-325-40 mg tablet See Rx Instructions PO Q4H PRN (Reason: headache) Qty: 20 RF: 0 famotidine 20 mg tablet 20 mg PO DAILY RF: 0 (DME) Portable Oxygen Misc See Rx Instructions .ROUTE .MEDSUPPLY Qty: 1 RF: 0 (DME) pen needle, diabetic [BD Ultra-Fine Short Pen Needle] 31 gauge x 5/16" needle See Rx Instructions .ROUTE .MEDSUPPLY Qty: 200 RF: 5 (DME) pen needle, diabetic [BD Ultra-Fine Mini Pen Needle] 31 gauge x 3/16" needle See Rx Instructions .ROUTE .MEDSUPPLY RF: 0 Levemir FlexTouch U-100 Insuln 100 unit/mL (3 mL) insulin pen 70 unit SQ QPM RF: 0 duloxetine 30 mg capsule,delayed release(DR/EC) 30 mg PO QAM RF: 0 (DME) blood sugar diagnostic [OneTouch Verio test strips] Strip See Rx Instructions .ROUTE .MEDSUPPLY Qty: 150 RF: 6 (DME) blood-glucose meter [OneTouch Verio Meter] [facility] [place] Instructions [id number] .MEDSUPPLY Qty: 1 RF: 0 albuterol sulfate 90 mcg/actuation HFA aerosol inhaler 2 puffs INH Q4H PRN (Reason: shortness of breath or wheezing) Qty: 8.5 RF: 0 Symbicort 160-4.5 mcg/actuation HFA aerosol inhaler 2 puff INHALATION BID RF: 0 prochlorperazine maleate 10 mg tablet 10 mg PO QID PRN (Reason: nausea and vomiting) Qty: 14 RF: 0 duloxetine 60 mg capsule,delayed release(DR/EC) 60 mg PO QAM RF: 0 cholecalciferol (vitamin D3) 50 mcg (2,000 unit) capsule 50 mcg PO QAM RF: 0 aspirin [Adult Aspirin Regimen] 81 mg tablet,delayed release (DR/EC) 81 mg PO DAILY Qty: 30 RF: 11 pramipexole 0.5 mg tablet 0.5 mg PO DAILY RF: 0 lidocaine 4 % cream 1 applic topical BID PRN (Reason: pain) Qty: 30 RF: 0 Changed trazodone 150 mg tablet 75 mg PO HS PRN (Reason: Insomnia) Qty: 90 RF: 0 atorvastatin [Lipitor] 80 mg tablet 80 mg PO HS Qty: 90 RF: 1 furosemide 40 mg tablet 40 mg PO QAM PRN (Reason: Weight Gain) Qty: 0 RF: 0 Discontinued gabapentin 600 mg tablet 800 mg PO TID RF: 0 diclofenac sodium 50 mg tablet,delayed release (DR/EC) 50 mg PO BID Qty: 180 RF: 1 verapamil 240 mg tablet extended release 240 mg PO QPM Qty: 90 RF: 1 diclofenac sodium 50 mg tablet,delayed release (DR/EC) 50 mg PO BID Qty: 180 RF: 1 sulfamethoxazole-trimethoprim [Bactrim DS] 800-160 mg tablet 1 tab PO BID RF: 0 No Action diclofenac sodium 50 mg tablet,delayed release (DR/EC) 50 mg PO BID Qty: 180 RF: 1 Discharge Orders: Discharge Order (Routine); Ordered 09/06/20 Ordered By: Gerard Farias/Other Patient Handouts: Preventing Falls in the Home Admission Data Admit Date/Time: 09/04/20 16:41 Attending Provider: Sadia Restrepo Admit Provider: Sadia Restrepo Primary Care Provider: Swati Berger Other Providers: Sadia Restrepo Other Interventions: Discharge Summary Assessment (RN) Last Done: 09/06/20 15:21 Supervising Physician Co-Signing Physician Notes PA Supervision Note: I personally saw and examined the patient. I verified all mahmood points and agree with GUILHERME Duarte with the following exceptions and/or additions: 55 yo female here with diarrhea, hypotension, and HAN Feeling much better VSS NAD, obese,AAOx3 RRR no mgr CTAB no wcr Abd +BS soft NT ND Ext no edema CT abd/pel ruled out colitis and renal obstruction as cause of acute kidney injury -Kebede catheter placed initially and then removed -Acute kidney injury is resolved-continue to hold diclofenac,reduced dose of gabapentin for HAN, hold lasix and use prn -Diarrhea has resolved spontaneously but if persists, would check C. difficile and stool culture Blood cultures negative diarrhea resolved, BPs improved stable for dc to home Coding Level of Care Code D/C DAY MANAGEMENT >30 MINS Diagnoses MSSA (methicillin susceptible Staphylococcus aureus) infection A49.01 Diarrhea R19.7 COPD (chronic obstructive pulmonary disease) with chronic bronchitis J44.9 Tobacco abuse Z72.0 Marijuana abuse F12.10 Type II diabetes mellitus, uncontrolled E11.65 Coronary artery disease I25.10 Hypothyroidism E03.9 Severe obstructive sleep apnea-hypopnea syndrome G47.33 Migraine headache G43.909 Depression with anxiety F41.8 Hypertension I10 Insomnia G47.00 Bipolar disorder F31.9 Chronic diastolic CHF (congestive heart failure) I50.32 Peptic ulcer disease K27.9 HAN (acute kidney injury) N17.9
[2020-09-06] MEDS ORDERED: traZODone HCL 50 MG TAB PO SCH (21:00)
== END 2020-09-06 15:55 | disposition home or self-care (01) ==
LOC: ED 13:52 → INTOOBSV 16:41 → 2S 16:41 → 3E 09-05 23:25
DX: I13.0 Hypertensive heart and chronic kidney disease with heart failure and stage 1 through stage 4 chronic kidney disease, or unspecified chronic kidney disease; I25.10 Atherosclerotic heart disease of native coronary artery without angina pectoris; Z79.4 Long term (current) use of insulin; F17.210 Nicotine dependence, cigarettes, uncomplicated; A49.01 Methicillin susceptible Staphylococcus aureus infection, unspecified site; Z79.899 Other long term (current) drug therapy; E11.65 Type 2 diabetes mellitus with hyperglycemia; I95.9 Hypotension, unspecified; I50.32 Chronic diastolic (congestive) heart failure; E83.42 Hypomagnesemia; G43.909 Migraine, unspecified, not intractable, without status migrainosus; Z79.51 Long term (current) use of inhaled steroids; K27.9 Peptic ulcer, site unspecified, unspecified as acute or chronic, without hemorrhage or perforation; G47.00 Insomnia, unspecified; N18.9 Chronic kidney disease, unspecified; F12.10 Cannabis abuse, uncomplicated; J44.9 Chronic obstructive pulmonary disease, unspecified; F31.9 Bipolar disorder, unspecified; N17.9 Acute kidney failure, unspecified; R19.7 Diarrhea, unspecified

== ENCOUNTER 2021-01-24 15:11 | Observation (INO) ==
--- NOTE | 2021-01-24 15:45 | XRay Report ---
SINGLE VIEW CHEST CLINICAL HISTORY: Atypical chest pain FINDINGS: An AP, portable, upright chest radiograph is compared to study dated 10/17/2020 and correlate d with chest CT dated 10/15/2020. The examination is degraded by portable technique and apical lordotic positioning. The heart is top normal for projection. Chronic interstitial thickening is similar to previous. No airspace consolidation or large pleural effusion is identified. No pneumothorax is seen. The bony thorax is grossly intact. IMPRESSION: No acute cardiopulmonary abnormality. ACT 112: Negative or not required by law. Electronically signed by: Gerard Fontenot M.D. 01/24/2021 3:44 PM
[2021-01-24 16:02] LABS: Basophils # (auto) 0.08 K/uL (0-0.2); Basophils % (auto) 0.6 %; Eosinophils # (auto) 0.13 K/uL (0-0.5); Hematocrit (blood only) 42.9 % (37-47); Immature Granulocytes # (auto) 0.08 K/uL (0.00-0.02); Immature Granulocytes % (auto) 0.6 %; Lymphocytes # (auto) 3.22 K/uL (1.2-3.4); Lymphocytes % (auto) 25.4 %; Mean Corpuscular Hemoglobin 28.6 pg (25-34); Mean Corpuscular Hgb Conc 32.6 g/dL (32-36); Mean Corpuscular Volume 87.7 fL (80-100); Mean Platelet Volume 9.5 fL (7.4-10.4); Monocytes # (auto) 0.68 K/uL (0.11-0.59); Monocytes % (auto) 5.4 %; Neutrophils # (auto) 8.47 K/uL (1.4-6.5); Platelet Count 237 K/uL (130-400); Red Blood Count 4.89 M/uL (4.2-5.4); White Blood Count 12.66 K/uL (4.8-10.8)
[2021-01-24 16:15] LABS: Partial Thromboplastin Time 25.5 Seconds (21.0-31.0); Prothrombin Time 10.2 Seconds (9.0-12.0)
[2021-01-24 16:27] LABS: Alanine Aminotransferase 17 (12-78); Albumin Level 3.4 gm/dl (3.4-5.0); Aspartate Aminotransferase 18 U/L (15-37); BUN Creatinine Ratio 12.6 (10-20); Blood Urea Nitrogen 9 mg/dl (7-18); Calcium 9.1 mg/dl (8.5-10.1); Carbon Dioxide 30 mmol/L (21-32); Chloride 101 mmol/L (98-107); Creatinine Clr Calc Pharmacy 107.1 ml/min; Est GFR (African American) 107.5 ml/min; Est GFR (Non-African American) 92.7 ml/min; Glucose 169 mg/dl (70-99); Potassium 3.7 mmol/L (3.5-5.1); Sodium 139 mmol/L (136-145)
[2021-01-24 16:31] LABS: Albumin Globulin Ratio 0.8 (0.9-2); Alkaline Phosphatase 170 U/L (45-117); Bilirubin,Total 0.5 mg/dl (0.2-1); Globulin 4.3 gm/dl (2.5-4.0); Total Protein 7.7 gm/dl (6.4-8.2); Troponin I < 0.015 ng/ml (0-0.045)
[2021-01-24 16:38] LABS: Influenza A virus by PCR Negative (Neg); Influenza B virus by PCR Negative (Neg); RSV by PCR Negative (Neg); SARS CoV2 RNA(COVID-19) InHosp NEGATIVE (Negative)
[2021-01-24] MEDS ORDERED: MoRPHine SULFATE 4 MG/ML 1 ML CARP\\VIAL IV STA (17:06)
[2021-01-24] MEDS ORDERED: SODIUM CHLORIDE 0.9% 1000ML 1,000 ML IV SCH (17:15)
--- NOTE | 2021-01-24 18:11 | History & Physical Report ---
Date of Service January 24, 2021 Assessment & Plan (1) Chest pain: Plan: -Costochondritis versus unstable angina, pain is reproducible with palpation, however, with patient's significant cardiac history, cardiac etiology cannot be ruled out entirely at this time. -Admit patient to Med/Surg with telemetry. -Troponin negative in ED, trend troponins every 6 hour x3 -Daily CBC, BMP -EKG in ED showed no ST elevation or depression -Echo in the a.m. Last echo in March 2020 showed normal left ventricular systolic function, no wall motion abnormalities, ejection fraction between 60 and 65%, no valvular pathology. -Consult cardiology, consultation appreciated -Nitroglycerin sublingual as needed for chest pain -Patient received 4 mg of morphine IV in the ED which provided some relief. (2) Dyspnea: Plan: -Currently saturating at 98% on room air -Albuterol inhaler every 4 hours as needed for wheezing/shortness of breath -Oxygen as needed with oxygen saturation goal of 90% or higher. -Reports nighttime oxygen need of 5 L nasal cannula (3) Coronary artery disease: Plan: -Last GA in 2009 which did require stent placement -Continue Plavix and metoprolol -Cardiology consulted -Echo in the morning (4) Type II diabetes mellitus, uncontrolled: Plan: -A1C in AM, last A1c in August was 10.4 -Lantus 20 units BID with sliding scale -Withhold Metformin (5) COPD (chronic obstructive pulmonary disease) with chronic bronchitis: Plan: -Albuterol inhaler every 4 hours as needed for wheezing/shortness of breath -Recommend smoking cessation (6) Chronic diastolic CHF (congestive heart failure): Plan: -Does appear to have some fluid overload with mild pitting edema -No appreciable JVD or crackles heard on auscultation -Continue Lopressor 25 mg at night -D/C IV fluid after 1 L in the ED, patient can tolerate p.o. hydration (7) Hypertension: Plan: -Continue metoprolol (8) Severe obstructive sleep apnea-hypopnea syndrome: Plan: -5 L oxygen via nasal cannula at night History of Present Illness Chief Complaint: Chest Pain Primary Care Provider: Swati Berger DO Patient is a 55-year-old female with a past medical history of previous GA with stents placed in 2009, DM 2, COPD, heart failure with preserved ejection fraction, hyperlipidemia, hypertension, hypothyroidism, and nicotine dependence presented to the hospital for the chief complaint of chest pain x4 days. Patient reports that for the past 7 days she has had the complaint of harsh cough, runny nose, and shortness of breath that has been getting progressively worse. Patient reports that she had 2 Covid contacts recently. Per patient, on day 3 of these ongoing cold-like symptoms, patient began developing left-sided chest pain that is progressively gotten worse and is currently an 8 out of 10 today and describes it as achy. She reports since Friday she is used home nitro 3 times which relieved the pain for about 3 hours but eventually always returns. She reports that her shortness of breath and chest pain also gets worse with activity such as while at work where she does a lot of walking. Patient reports that the chest pain also radiates to her back and down her arm. The pain is reportedly constant, however, it is at its peak when she takes a deep breath. While she is at work a couple days ago she was sent home due to elevated blood pressure, elevated heart rate, and her oxygen saturation was 88% according to the patient. Reports utilizing her albuterol inhaler daily for the past few days whereas prior to this she was only using it once or twice per month. Patient is also noted increased lower extremity edema. She does typically have some due to a history of congestive heart failure, however, she was taken off of her Lasix for unknown reason. Additionally has had intermittent headaches over the past week, but she has not used any intervention such as Tylenol or Aleve. Patient currently smokes a pack of cigarettes per day and has a 30 to 40 pack year history. Patient also reports having a previous GA in 2009 that required stent placement. Patient reports no other complaints at this time. Allergies Allergy/AdvReac Type Severity Reaction Status Date / Time sulfamethoxazole Allergy Severe Went into Verified 11/28/20 15:55 [From Bactrim] Renal Failure trimethoprim [From Bactrim] Allergy Severe Went into Verified 11/28/20 15:55 Renal Failure Home Medications Medication Instructions Recorded Confirmed Type albuterol sulfate 90 mcg/actuation 2 puffs INH Q4H PRN #8.5 gm 10/28/17 01/24/21 Rx aerosol inhaler insulin detemir U-100 100 unit/mL 80 unit SQ QPM box 05/16/20 01/24/21 History (3 mL) subcutaneous pen (Levemir FlexTouch U-100 Insulin) clopidogrel 75 mg tablet (Plavix) 75 mg PO QPM #90 tab 05/24/20 01/24/21 Rx metformin 1,000 mg tablet 1,000 mg PO BID #180 tab 05/24/20 01/24/21 Rx nitroglycerin 0.4 mg sublingual 0.4 mg SUBLINGUAL Q5M PRN #20 tab 06/12/20 01/24/21 Rx tablet insulin aspart U-100 100 unit/mL See Rx Instructions SQ .COMPLEX ml 09/01/20 01/24/21 History (3 mL) subcutaneous pen (Novolog Flexpen U-100 Insulin aspart) Victoza 3-Isidro 0.6 mg/0.1 mL (18 1.8 mg SQ DAILY #9 ml NS 10/17/20 01/24/21 Rx mg/3 mL) subcutaneous pen injector (liraglutide) metoprolol tartrate 50 mg tablet 25 mg PO QPM #90 tab 11/20/20 01/24/21 Rx (Lopressor) trazodone 150 mg tablet 150 mg PO HS PRN #90 tab 11/28/20 01/24/21 Rx diclofenac sodium 50 mg 50 mg PO BID 01/24/21 01/24/21 History tablet,delayed release gabapentin 300 mg capsule 300 mg PO TID 01/24/21 01/24/21 History Past Med/Surg History Medical History HAN (acute kidney injury) Asthma rare use PRN inh Bipolar disorder Cellulitis of right upper extremity Chronic kidney disease COPD (chronic obstructive pulmonary disease) with chronic bronchitis Coronary artery disease Follows with [facility] Depression with anxiety Diabetes mellitus, type 2 IDDM Diabetic peripheral neuropathy associated with type 2 diabetes mellitus Diabetic ulcer of left foot associated with type 2 diabetes mellitus, with fat layer exposed Dizziness Dyslipidemia Gastritis Glaucoma Heart failure, systolic, due to CAD History of colon polyps History of heart attack (2009) x3, 2009 and 2009, 2013 Hypertension Hypomagnesemia Hypotension Hypothyroidism Insomnia Marijuana abuse Marijuana use Migraine headache Nocturnal hypoxia Obsessive compulsive disorder On home oxygen therapy 4 LPM cont Posttraumatic stress disorder Restless legs syndrome Severe obstructive sleep apnea-hypopnea syndrome CPAP + 4 LPM O2 Tenosynovitis of hand Tobacco abuse Vitamin D deficiency Surgical History H/O heart artery stent x 3 H/O hernia repair (03/11/17) History of appendectomy History of x 2 History of cardiac catheterization 2008 - [place] - 2 stents 2009 - [place] - 1 stent 2013 - CHF - angioplasty, no stents -- all caths done at [facility] in [place], [place] History of cholecystectomy History of colonoscopy most recent 11/11/19 [place] History of esophagogastroduodenoscopy (EGD) most recent 11/11/19 [facility] S/P cardiac catheterization Dr. Roblero - March 2019 and April 2019. S/P dilation and curettage S/P hysterectomy secondary to endometriosis, tubes also removed. Ovaries retained S/P tonsillectomy Family History Father Diabetes Coronary heart disease Myocardial infarction Hypertension Mother Diabetes Coronary heart disease Hypertension Stroke Slow to wake up after anesthesia Brother Diabetes Grandmother (Maternal) Diabetes Myocardial infarction Hypertension Grandmother (Paternal) Coronary heart disease Aunt Breast cancer Uterine cancer Paternal Grandfather (Maternal) Colorectal cancer Uncle Colorectal cancer Family/Other Ovarian cancer Multiple cousins Denies family history of Prostate cancer Lung cancer Social History Smoking Status: Light tobacco smoker Tobacco Type: Cigarettes Age Started Using Tobacco: 11; Age Quit Using Tobacco: 55; packs per day: 0.5; Cigarettes Per Day: 1/2 pack; Second Hand Exposure: No; Hx Alcohol Use: No Hx Substance Use: Yes Prescribed Medications: Marijuana Last Used Substance: Days (ago) Last Used Substance Other:: yesterday Substance Use Type Other:: medical marijuana card Preferred Language: Sami Communication Ability: Effective Visual Impairment: No Limitations Hearing Ability: Normal Auctioneer Art Required: No Beliefs That Will Affect Care: None marital status: Current Living Situation: Spouse current occupational status: employed How many Children do You have: 2 Feels Safe at Home: Yes Safety Concerns: Feels Safe At This Time Childhood Exposure to Second-Hand Smoke: Yes Diet Comment: does not follow diet caffeine: Yes (ice tea) during the past year weight has: other Dental Care, Regularly: Yes Physical Activity Frequency: 1-2 Times per Week Physical Activity Frequency Comment: swimming Seatbelt Use: always Sunscreen Use: No Assistive Devices: Oxygen - at Night Review of Systems Review of Systems: All systems reviewed & are unremarkable except as noted in HPI & below Physical Exam Constitutional: well developed, well nourished, + obese and cooperative Eyes: + anicteric sclerae Neck: trachea midline, no thyromegaly normal visual inspection Respiratory: normal respiratory effort, lungs clear to auscultation no respiratory distress and no labored breathing Cardiovascular: Rate/Rhythm: regular rate and regular rhythm Heart Sounds: normal S1 and normal S2; no murmur Vessels: no JVD (JVD difficult to assess due to body habitus.) Extremities: + edema (1+ pitting edema bilaterally to the mid brown.); no calf tenderness Chest (Breasts): Chest: normal inspection of chest Additional Comments: Tenderness to palpation of the left chest that reproduces chest pain. Gastrointestinal (Abdomen): normal bowel sounds, soft, nontender, no hepatosplenomegaly Skin: no rashes, warm and dry Neurologic: CN's II-XI intact bilaterally and moves all extremities Psychiatric: A+Ox3, euthymic affect Eye Contact: good eye contact Lymphatic: no cervical or axillary lymphadenopathy Results & Data Results & Data ([facility]) Vital Signs (Past 12 Hours) Vital Signs Temp Pulse Pulse Resp BP BP Pulse Ox 01/24/21 17:00 75 22 156/84 H 98 01/24/21 15:21 36.9 C 78 19 168/91 H 96 Supervising Physician Co-Signing Physician Notes Patient seen and examined at bedside. During face to face encounter, obtained a physical and history. I reviwed above note and agree with it. Discussed plan of care with Dr. Ugalde and patient. All questions by patient were answered. Will admit for chest pain rule out. will consult cardio, concern over unstable angina Resident Activity Tracking Resident Involvement: Resident Care Provided Care Provided: Adult Hospital Medicine
[2021-01-24] MEDS ORDERED: MoRPHine SULFATE 2 MG/ML CARP IV STA (18:12)
--- NOTE | 2021-01-24 18:54 | Emergency Department Note ---
History of Present Illness General Chief Complaint: Chest Pain Stated Complaint: CHEST PAIN, COUGH, CARDIAC HX Time Seen by Provider: 01/24/21 16:49 History of Present Illness Provider Complaint: chest pain Onset (ago): day(s) 4 Duration: intermittent Onset: during exertion Pain Location: substernal Pain Radiation: LUE and back Severity: similar to previous episodes (Feels similar to the last time she had a heart attack) Maximum Pain Intensity: 9 Current Pain Intensity: 4 Quality: + dull Relieved By: + nitroglycerin Exacerbated By: + exertion Context: no recent illness, no recent surgery, no recent immobilization, no recent travel, no trauma/injury, no new medications or no history of DVT/PE Associated symptoms: + dyspnea; no nausea, no vomiting, no diaphoresis, no syncope, no palpitations, no fever, no cough or no leg swelling Treatments prior to arrival: nitroglycerin Home Medications Medication Instructions Recorded Confirmed Type albuterol sulfate 90 mcg/actuation 2 puffs INH Q4H PRN #8.5 gm 10/28/17 01/24/21 Rx aerosol inhaler insulin detemir U-100 100 unit/mL 80 unit SQ QPM box 05/16/20 01/24/21 History (3 mL) subcutaneous pen (Levemir FlexTouch U-100 Insulin) clopidogrel 75 mg tablet (Plavix) 75 mg PO QPM #90 tab 05/24/20 01/24/21 Rx metformin 1,000 mg tablet 1,000 mg PO BID #180 tab 05/24/20 01/24/21 Rx nitroglycerin 0.4 mg sublingual 0.4 mg SUBLINGUAL Q5M PRN #20 tab 06/12/20 01/24/21 Rx tablet insulin aspart U-100 100 unit/mL See Rx Instructions SQ .COMPLEX ml 09/01/20 01/24/21 History (3 mL) subcutaneous pen (Novolog Flexpen U-100 Insulin aspart) Victoza 3-Isidro 0.6 mg/0.1 mL (18 1.8 mg SQ DAILY #9 ml NS 10/17/20 01/24/21 Rx mg/3 mL) subcutaneous pen injector (liraglutide) metoprolol tartrate 50 mg tablet 25 mg PO QPM #90 tab 11/20/20 01/24/21 Rx (Lopressor) trazodone 150 mg tablet 150 mg PO HS PRN #90 tab 11/28/20 01/24/21 Rx diclofenac sodium 50 mg 50 mg PO BID 01/24/21 01/24/21 History tablet,delayed release gabapentin 300 mg capsule 300 mg PO TID 01/24/21 01/24/21 History Allergies Allergy/AdvReac Type Severity Reaction Status Date / Time sulfamethoxazole Allergy Severe Went into Verified 11/28/20 15:55 [From Bactrim] Renal Failure trimethoprim [From Bactrim] Allergy Severe Went into Verified 11/28/20 15:55 Renal Failure Past Med/Surg History Medical History HAN (acute kidney injury) Asthma rare use PRN inh Bipolar disorder Cellulitis of right upper extremity Chronic kidney disease COPD (chronic obstructive pulmonary disease) with chronic bronchitis Coronary artery disease Follows with [facility] Depression with anxiety Diabetes mellitus, type 2 IDDM Diabetic peripheral neuropathy associated with type 2 diabetes mellitus Diabetic ulcer of left foot associated with type 2 diabetes mellitus, with fat layer exposed Dizziness Dyslipidemia Gastritis Glaucoma Heart failure, systolic, due to CAD History of colon polyps History of heart attack (2008) x3, 2008 and 2013 Hypertension Hypomagnesemia Hypotension Hypothyroidism Insomnia Marijuana abuse Marijuana use Migraine headache Nocturnal hypoxia Obsessive compulsive disorder On home oxygen therapy 4 LPM cont Posttraumatic stress disorder Restless legs syndrome Severe obstructive sleep apnea-hypopnea syndrome CPAP + 4 LPM O2 Tenosynovitis of hand Tobacco abuse Vitamin D deficiency Surgical History H/O heart artery stent x 3 H/O hernia repair (03/11/17) History of appendectomy History of x 2 History of cardiac catheterization 2008 - [place] - 2 stents 2009 - [place] - 1 stent 2013 - [facility] - angioplasty, no stents -- all caths done at [facility] in [place], [place] History of cholecystectomy History of colonoscopy most recent 11/11/19 [place] History of esophagogastroduodenoscopy (EGD) most recent 11/11/19 [facility] S/P cardiac catheterization Dr. Roblero - March 2019 and April 2019. S/P dilation and curettage S/P hysterectomy secondary to endometriosis, tubes also removed. Ovaries retained S/P tonsillectomy Family History Father Diabetes Coronary heart disease Myocardial infarction Hypertension Mother Diabetes Coronary heart disease Hypertension Stroke Slow to wake up after anesthesia Brother Diabetes Grandmother (Maternal) Diabetes Myocardial infarction Hypertension Grandmother (Paternal) Coronary heart disease Aunt Breast cancer Uterine cancer Paternal Grandfather (Maternal) Colorectal cancer Uncle Colorectal cancer Family/Other Ovarian cancer Multiple cousins Denies family history of Prostate cancer Lung cancer Social History Smoking Status: Current every day smoker Tobacco Type: Cigarettes Age Started Using Tobacco: 11; Age Quit Using Tobacco: 55; packs per day: 0.5; Cigarettes Per Day: 1/2 pack; Second Hand Exposure: No; Hx Alcohol Use: No Hx Substance Use: Yes Prescribed Medications: Marijuana Last Used Substance: Days (ago) Last Used Substance Other:: yesterday Substance Use Type Other:: medical marijuana card Preferred Language: Yi Communication Ability: Effective Visual Impairment: No Limitations Hearing Ability: Normal 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 Beliefs That Will Affect Care: None marital status: Current Living Situation: Spouse current occupational status: employed How many Children do You have: 2 Feels Safe at Home: Yes Childhood Exposure to Second-Hand Smoke: Yes Diet Comment: does not follow diet caffeine: Yes (ice tea) during the past year weight has: other Dental Care, Regularly: Yes Physical Activity Frequency: 1-2 Times per Week Physical Activity Frequency Comment: swimming Seatbelt Use: always Sunscreen Use: No Assistive Devices: Glasses Review of Systems A total of 10 systems reviewed and were otherwise negative Physical Exam Vital Signs Vital Signs - 24 hr 01/24/21 15:21 01/24/21 17:00 01/24/21 17:01 Temperature 36.9 C Temperature Source Temporal Artery Scan Pulse Rate 78 Pulse Rate [Apical] 75 Pulse Rhythm [Apical] Pulse Strength [Apical] Respiratory Rate 19 22 Respiratory Effort / Characteristics Non-Labored Spontaneous Non-Labored Respiratory Depth Normal Respiratory Pattern Regular Blood Pressure 168/91 H Blood Pressure [Right Arm] 156/84 H Blood Pressure Mean 116 Blood Pressure Mean [Right Arm] 108 Blood Pressure Position [Right Arm] Pulse Oximetry 96 98 Oxygen Delivery Method Room Air Room Air Sepsis Recent Fever Within 48 Hours No Sepsis New/Unexplained Change in Mental Status N/A Sepsis Action Taken by Nursing No Action Required 01/24/21 18:30 Temperature Temperature Source Pulse Rate Pulse Rate [Apical] 75 Pulse Rhythm [Apical] Regular Pulse Strength [Apical] Normal Respiratory Rate 20 Respiratory Effort / Characteristics Non-Labored Spontaneous Respiratory Depth Normal Respiratory Pattern Regular Blood Pressure Blood Pressure [Right Arm] 144/83 H Blood Pressure Mean Blood Pressure Mean [Right Arm] 103 Blood Pressure Position [Right Arm] Sitting Pulse Oximetry 94 Oxygen Delivery Method Room Air Sepsis Recent Fever Within 48 Hours Sepsis New/Unexplained Change in Mental Status Sepsis Action Taken by Nursing Physical Exam GENERAL: She is oriented to person, place, and time. She appears well-developed and well-nourished. She does not appear distressed. HENT: Exam performed. -Head: Normocephalic and atraumatic. -Right Ear: External ear normal. No mastoid tenderness. -Left Ear: External ear normal. No mastoid tenderness. -Mouth/Throat: The oropharynx is clear and moist. No trismus in the jaw. No dental abscesses or uvula swelling. No oropharyngeal exudate or tonsillar abscesses. EYES: Conjunctivae and EOM are normal. Pupils are equal, round, and reactive to light. Right eye exhibits no discharge. Left eye exhibits no discharge. No scleral icterus. NECK: Normal range of motion. Neck supple. No JVD present. No spinous process tenderness present. No carotid bruit present. No rigidity. No tracheal deviation and normal range of motion present. No Brudzinski's sign and no Kernig's sign noted. CV: Normal rate, regular rhythm, normal heart sounds and intact distal pulses. There is no peripheral edema. Palpable radial pulses bue. PULM/CHEST: Effort normal and breath sounds normal. No respiratory distress. No stridor. She has no wheezes. She has no rales. -Chest Wall: She exhibits no tenderness. ABD: The abdomen is soft. Bowel sounds are normal. She has no distension. No mass is present. There is no tenderness. There is no rebound, no guarding, no Man's sign and no tenderness at McBurney's point. Rovsig negative MUSC/SKEL: Normal range of motion. There is no peripheral edema, tenderness or deformity. LYMPH: No cervical adenopathy. NEURO: She is alert and oriented to person, place, and time. She has normal strength. No cranial nerve deficit or sensory deficit. Coordination and gait normal. GCS eye subscore is 4. GCS verbal subscore is 5. GCS motor subscore is 6. Cerebellar tests wnl. SKIN: Skin is warm and dry. She is not diaphoretic. PSYCH: She has a normal mood and affect. Behavior is normal. Judgment and thought content normal. Course Course 1648: The patient was evaluated in room C9. A complete history and physical exam was performed Cardiac monitoring: An order was placed for continuous cardiac monitoring. The monitor shows a rate of 70 with sinusrhythm Patient was seen during a time of extreme volume and extreme acuity during the COVID-19 pandemic. Nursing triage protocols were initiated and labs were drawn by protocol in the triage area. Labs and imaging within normal limits. Patient will be admitted to the [facility]ist team for chest pain rule out ACS Administered Medications Sodium Chloride (Nss 1000ml) 1,000 mls @ 125 mls/hr IV .Q8H AKASH Stop: 02/23/21 17:14 Last Admin: 01/24/21 17:22 Dose: 125 mls/hr Documented by: [id number] Discontinued Medications Morphine Sulfate (Morphine Sulfate 4 Mg/Ml 1 Ml Carp\Vial) 2 mg IV NOW STA Stop: 01/24/21 17:07 Last Admin: 01/24/21 17:21 Dose: 2 mg Documented by: [id number] Morphine Sulfate (Morphine Sulfate 2 Mg/Ml Carp) 2 mg IV NOW STA Stop: 01/24/21 18:13 Last Admin: 01/24/21 18:30 Dose: 2 mg Documented by: [id number] Medical Decision Making Laboratory Data Result diagrams: 01/24/21 15:49 01/24/21 15:49 Labs: Lab Results 01/24/21 01/24/21 01/24/21 Range/Units 15:49 15:49 15:49 WBC 12.66 H (4.8-10.8) K/uL RBC 4.89 (4.2-5.4) M/uL Hgb 14.0 (12.0-16.0) g/dL Hct 42.9 (37-47) % MCV 87.7 (80-100) fL MCH 28.6 (25-34) pg MCHC 32.6 (32-36) g/dL RDW Std Deviation 45.0 (36.4-46.3) fL RDW Coeff of Caitlin 14.0 (11.5-14.5) % Plt Count 237 (130-400) K/uL MPV 9.5 (7.4-10.4) fL Immature Gran % (Auto) 0.6 % Neut % (Auto) 67.0 % Lymph % (Auto) 25.4 % Pennington % (Auto) 5.4 % Eos % (Auto) 1.0 % Baso % (Auto) 0.6 % Neut # (Auto) 8.47 H (1.4-6.5) K/uL Lymph # (Auto) 3.22 (1.2-3.4) K/uL Pennington # (Auto) 0.68 H (0.11-0.59) K/uL Eos # (Auto) 0.13 (0-0.5) K/uL Baso # (Auto) 0.08 (0-0.2) K/uL Immature Gran # (Auto) 0.08 H (0.00-0.02) K/uL PT 10.2 (9.0-12.0) Seconds INR 1.0 (0.9-1.1) APTT 25.5 (21.0-31.0) Seconds PTT Ratio 1.0 Sodium 139 (136-145) mmol/L Potassium 3.7 (3.5-5.1) mmol/L Chloride 101 (98-107) mmol/L Carbon Dioxide 30 (21-32) mmol/L Anion Gap 7.0 (3-11) BUN 9 (7-18) mg/dl Creatinine 0.73 (0.6-1.2) mg/dl Est Cr Clr Drug Dosing 107.1 ml/min Est GFR ( Amer) 107.5 ml/min Est GFR (Non-Af Amer) 92.7 ml/min BUN/Creatinine Ratio 12.6 (10-20) Glucose 169 H (70-99) mg/dl Calcium 9.1 (8.5-10.1) mg/dl Total Bilirubin 0.5 (0.2-1) mg/dl AST 18 (15-37) U/L ALT 17 (12-78) Alkaline Phosphatase 170 H (45-117) U/L Troponin I < 0.015 (0-0.045) ng/ml Total Protein 7.7 (6.4-8.2) gm/dl Albumin 3.4 (3.4-5.0) gm/dl Globulin 4.3 H (2.5-4.0) gm/dl Albumin/Globulin Ratio 0.8 L (0.9-2) SARS-CoV-2 (PCR) (Negative) Influenza Type A (PCR) (Neg) Influenza Type B (PCR) (Neg) RSV (RT-PCR) (Neg) 01/24/21 Range/Units 15:51 WBC (4.8-10.8) K/uL RBC (4.2-5.4) M/uL Hgb (12.0-16.0) g/dL Hct (37-47) % MCV (80-100) fL MCH (25-34) pg MCHC (32-36) g/dL RDW Std Deviation (36.4-46.3) fL RDW Coeff of Caitlin (11.5-14.5) % Plt Count (130-400) K/uL MPV (7.4-10.4) fL Immature Gran % (Auto) % Neut % (Auto) % Lymph % (Auto) % Pennington % (Auto) % Eos % (Auto) % Baso % (Auto) % Neut # (Auto) (1.4-6.5) K/uL Lymph # (Auto) (1.2-3.4) K/uL Pennington # (Auto) (0.11-0.59) K/uL Eos # (Auto) (0-0.5) K/uL Baso # (Auto) (0-0.2) K/uL Immature Gran # (Auto) (0.00-0.02) K/uL PT (9.0-12.0) Seconds INR (0.9-1.1) APTT (21.0-31.0) Seconds PTT Ratio Sodium (136-145) mmol/L Potassium (3.5-5.1) mmol/L Chloride (98-107) mmol/L Carbon Dioxide (21-32) mmol/L Anion Gap (3-11) BUN (7-18) mg/dl Creatinine (0.6-1.2) mg/dl Est Cr Clr Drug Dosing ml/min Est GFR ( Amer) ml/min Est GFR (Non-Af Amer) ml/min BUN/Creatinine Ratio (10-20) Glucose (70-99) mg/dl Calcium (8.5-10.1) mg/dl Total Bilirubin (0.2-1) mg/dl AST (15-37) U/L ALT (12-78) Alkaline Phosphatase (45-117) U/L Troponin I (0-0.045) ng/ml Total Protein (6.4-8.2) gm/dl Albumin (3.4-5.0) gm/dl Globulin (2.5-4.0) gm/dl Albumin/Globulin Ratio (0.9-2) SARS-CoV-2 (PCR) NEGATIVE (Negative) Influenza Type A (PCR) Negative (Neg) Influenza Type B (PCR) Negative (Neg) RSV (RT-PCR) Negative (Neg) Imaging Data Chest x-ray: Radiologist's impression: Chest X-Ray 01/24/21 15:25 SINGLE VIEW CHEST CLINICAL HISTORY: Atypical chest pain FINDINGS: An AP, portable, upright chest radiograph is compared to study dated 10/17/2020 and correlated with chest CT dated 10/15/2020. The examination is degraded by portable technique and apical lordotic positioning. The heart is top normal for projection. Chronic interstitial thickening is similar to pr evious. No airspace consolidation or large pleural effusion is identified. No pneumothorax is seen. The bony thorax is grossly intact. IMPRESSION: No acute cardiopulmonary abnormality. ACT 112: Negative or not required by law. Electronically signed by: Gerard Fontenot M.D. 01/24/2021 3:44 PM ECG Data Indication: chest pain Rate (beats per minute): 74 Rhythm: normal sinus Findings: no ST depression, no ST elevation or no prolonged QT MDM Narrative The patient was evaluated in room C9. A complete history and physical exam was performed Cardiac monitoring: An order was placed for continuous cardiac monitoring. The monitor shows a rate of 70 with sinusrhythm Patient was seen during a time of extreme volume and extreme acuity during the COVID-19 pandemic. Nursing triage protocols were initiated and labs were drawn by protocol in the triage area. Labs and imaging within normal limits. Patient will be admitted to the [facility] hospitalist team for chest pain rule out ACS Impression & Plan Chest pain Discharge Plan Visit Data Chief Complaint: Chest Pain Stated Complaint: CHEST PAIN, COUGH, CARDIAC HX Discharge Problem: Chest pain Patient Disposition: Being Evaluated by Hospitalist Forms Stand Alone Forms: [facility] Prescriptions Prescriptions: No Action clopidogrel [Plavix] 75 mg tablet 75 mg PO QPM Qty: 90 RF: 1 metformin 1,000 mg tablet 1,000 mg PO BID Qty: 180 RF: 1 nitroglycerin 0.4 mg tablet, sublingual 0.4 mg sublingual Q5M PRN (Reason: chest pain) Qty: 20 RF: 2 Victoza 3-Isidro 0.6 mg/0.1 mL (18 mg/3 mL) pen injector 1.8 mg SQ DAILY Qty: 9 RF: 2 metoprolol tartrate [Lopressor] 50 mg tablet 25 mg PO QPM Qty: 90 RF: 3 insulin aspart U-100 [Novolog Flexpen U-100 Insulin] 100 unit/mL (3 mL) insulin pen See Rx Instructions SQ .COMPLEX RF: 0 Levemir FlexTouch U-100 Insuln 100 unit/mL (3 mL) insulin pen 80 unit SQ QPM RF: 0 trazodone 150 mg tablet 150 mg PO HS PRN (Reason: Insomnia) Qty: 90 RF: 3 albuterol sulfate 90 mcg/actuation HFA aerosol inhaler 2 puffs INH Q4H PRN (Reason: shortness of breath or wheezing) Qty: 8.5 RF: 0 gabapentin 300 mg capsule 300 mg PO TID RF: 0 diclofenac sodium 50 mg tablet,delayed release (DR/EC) 50 mg PO BID RF: 0 Referrals Referrals: Swati Berger DO [Primary Care Provider] -
[2021-01-24] MEDS ORDERED: POLYETHYLENE (MIRALAX) 17 GM PACK PO PRN (22:15)
[2021-01-24] MEDS ORDERED: CARBOHYDRATES FOR HYPOGLYCEMIA PO PRN (22:15)
[2021-01-24] MEDS ORDERED: GLUCAGON FOR INJ 1 MG VIAL SQ PRN (22:15)
[2021-01-24] MEDS ORDERED: ALBUTEROL HFA 8 GM INHALER INH PRN (22:15)
[2021-01-24] MEDS ORDERED: DEXTROSE 50% 50 ML SYRINGE IV PRN (22:15)
[2021-01-24] MEDS ORDERED: GLUCOSE 10 TABS/TUBE PO PRN (22:15)
[2021-01-24] MEDS ORDERED: GLUCOSE 40% GEL 15 GM TUBE PO PRN (22:15)
[2021-01-24] MEDS ORDERED: NITROGLYCERIN SL 0.4 MG/TAB TAB SL PRN (22:15)
[2021-01-24] MEDS: MoRPHine SULFATE 4 MG/ML 1 ML CARP\\VIAL IV PRN (23:57)
[2021-01-25] MEDS: INSULIN ASPART PER UNIT SC SCH ×5 (00:42→21:06)
[2021-01-25] MEDS: INSULIN GLARGINE SOLOSTAR 100 UNITS/ML 3 ML PEN SC SCH ×3 (00:43→21:02)
[2021-01-25] MEDS: GABAPENTIN 300 MG CAP PO SCH ×4 (00:46→21:51)
[2021-01-25] MEDS: CLOPIDOGREL BISULFATE 75 MG TAB PO SCH ×2 (00:46→21:02)
[2021-01-25] MEDS: traZODone HCL 50 MG TAB PO PRN ×2 (00:47→21:51)
[2021-01-25] MEDS: METOPROLOL TARTRATE 25 MG TAB PO SCH ×2 (00:47→21:01)
[2021-01-25] MEDS: MoRPHine SULFATE 4 MG/ML 1 ML CARP\\VIAL IV PRN ×3 (04:08→15:31)
[2021-01-25 04:11] LABS: Hematocrit (blood only) 37.7 % (37-47); Hemoglobin 12.1 g/dL (12.0-16.0); Mean Corpuscular Hemoglobin 28.7 pg (25-34); Mean Corpuscular Hgb Conc 32.1 g/dL (32-36); Mean Corpuscular Volume 89.3 fL (80-100); Mean Platelet Volume 9.4 fL (7.4-10.4); Platelet Count 221 K/uL (130-400); RDW Coefficient of Variation 14.2 % (11.5-14.5); RDW Standard Deviation 46.5 fL (36.4-46.3); Red Blood Count 4.22 M/uL (4.2-5.4); White Blood Count 13.08 K/uL (4.8-10.8)
[2021-01-25 04:34] LABS: BUN Creatinine Ratio 13.2 (10-20); Blood Urea Nitrogen 10 mg/dl (7-18); Calcium 8.5 mg/dl (8.5-10.1); Carbon Dioxide 31 mmol/L (21-32); Chloride 104 mmol/L (98-107); Creatinine Clr Calc Pharmacy 108.6 ml/min; Est GFR (African American) 109.3 ml/min; Est GFR (Non-African American) 94.3 ml/min; Glucose 152 mg/dl (70-99); Potassium 4.1 mmol/L (3.5-5.1); Sodium 138 mmol/L (136-145)
[2021-01-25 04:38] LABS: Troponin I < 0.015 ng/ml (0-0.045)
[2021-01-25] MEDS: ACETAMINOPHEN 325 MG TAB PO PRN ×3 (07:33→21:02)
[2021-01-25 07:41] LABS: Estimated Average Glucose 197 mg/dl; Hemoglobin A1C 8.5 % (4.5-5.6)
[2021-01-25] MEDS ORDERED: PNEUMOCOCCAL Polysaccharide Vaccine 25mcg/0.5mL vial/Syr IM ONE (08:00)
--- NOTE | 2021-01-25 09:21 | Cardiology Consultation ---
Date of Consultation January 25, 2021 Assessment & Plan (1) Chest pain: (2) Coronary artery disease: (3) Chronic diastolic CHF (congestive heart failure): (4) Hypertension: (5) Dyslipidemia: ASSESSMENT/PLAN: 1. Chest pain: Her chest pain has been constant since Friday. Nitro helps to alleviate the pain, but it has never completely resolved. It is not worsened with exertion. Despite having the pain for several days, her troponins have been undetectable. ECG yesterday showed no acute ischemic changes. Her presentation is therefore not consistent with an ACS. Given her symptoms and known coronary artery disease, will obtain a noninvasive ischemic evaluation with a dobutamine stress echo. 2. Coronary artery disease s/p intracoronary stenting: DSE ordered, as noted above. Continue antiplatelet therapy and beta chris. It is unclear why she is not currently on statin therapy. Recommend high intensity statin therapy if no contraindications. 3. Chronic diastolic CHF: She has a difficult exam but does not appear significantly hypervolemic. She reports that she takes PO Lasix 40 mg daily as an outpatient. Low sodium diet. 4. Hypertension: BP currently well controlled. 5. Dyslipidemia: Recommend high intensity statin therapy given her known CAD, if no contraindications. If intolerant to statin therapy, would consider the use of a PCSK9 inhibitor. Patient discussed with Dr. Akers, and the plan was made in collaboration with him. History of Present Illness Reason for Consultation: Chest pain Requesting Physician: Dr. Ugalde History of Present Illness Mrs. Horton is a 55-year-old female with a complex past medical history who was admitted on 01/24/21 with chest pain. The patient has longstanding history of coronary artery disease. She claims to have had 3 stents placed due to an acute coronary syndrome in the years 2008, 2009, and 2013. We have no details of those interventions.The patient was seen in the outpatient setting on March 02 complaining of 3 episodes of possible angina pectoris. She was set up for dobutamine stress echocardiogram which was to be performed on March 23, however, patient's history at that time suggested crescendo angina pectoris. Radha York PA-C set her up for a cardiac catheterization which was performed by Dr. Roblero on April 03. This revealed a patent proximal LAD stent and a patent mid LCX stent. A 70% mid LAD stenosis received a JIMENEZ (3 x 12 mm Niraj) and a 99% distal LCx received an additional JIMENEZ (2.5 x 15 mm Planada). Other lesions included an 80% 1st diagonal stenosis and a 99% distal RCA stenosis. More recently, she reports that she developed a cough and sinus congestion last week. Then while at work on 01/20/21, she developed left-sided chest pain described as an ache, which radiated to her left scapular area. She had associated shortness of breath, lightheadedness, and near-syncope with the discomfort. A nurse at her work took her vital signs. Her BP was 179/82, heart rate was 108, and oxygen saturation was 89%. She was subsequently sent home, and upon arriving home, she took a nitro then took a nap. She states that the nitro eased the discomfort, and the severity went from a 10/10 to 5/10, but the discomfort never completely resolved. She felt a little better on Friday morning and was able to go to buddhist, but she felt poorly again afterwards with significant fatigue. She has continued to take the nitro daily for the chest discomfort, up to 4 a day. The nitro alleviates the discomfort, but it has never completely resolved since Friday. The discomfort is worsened with deep breaths, but it is not worsened with exertion. She continues to note shortness of breath and is now wearing her supplemental oxygen 5L 02/09. She also continues to note intermittent lightheadedness. She denies syncope. She notes a 5 lbs weight gain recently. She had some swelling in her left leg last week, but this has since resolved. She denies palpitations, abnormal bleeding, cerebrovascular symptoms, fevers, chills, abdominal pain, nausea, vomiting, or diarrhea. She is otherwise asymptomatic. Past medical and surgical history 1. Coronary artery disease-see above 2. Hypertension 3. Hypercholesterolemia 4. Borderline LVH 5. Diastolic CHF 6. COPD 7. Diabetes mellitus 8. Diabetic neuropathy 9. Hypothyroidism 10. Obesity 11. Obstructive sleep apnea 12. Bipolar disorder 13. Glaucoma 14. Migraine headaches 15. PTSD 16. Vitamin-D deficiency 17. Restless leg syndrome 18. Cholecystectomy 19. Appendectomy 20. Hysterectomy 21. Tonsillectomy 22. 23. Cataract surgery Family history: Mother at 73 from sepsis. Father at 74 from unknown causes. Social history: She is and lives with her . 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 She is currently smoking about 1 ppd and carries a 40 pack year history. No alcohol. Allergies Allergy/AdvReac Type Severity Reaction Status Date / Time sulfamethoxazole Allergy Severe Went into Verified 11/28/20 15:55 [From Bactrim] Renal Failure trimethoprim [From Bactrim] Allergy Severe Went into Verified 11/28/20 15:55 Renal Failure Home Medications Medication Instructions Recorded Confirmed Type albuterol sulfate 90 mcg/actuation 2 puffs INH Q4H PRN #8.5 gm 10/28/17 01/24/21 Rx aerosol inhaler insulin detemir U-100 100 unit/mL 80 unit SQ QPM box 05/16/20 01/24/21 History (3 mL) subcutaneous pen (Levemir FlexTouch U-100 Insulin) clopidogrel 75 mg tablet (Plavix) 75 mg PO QPM #90 tab 05/24/20 01/24/21 Rx metformin 1,000 mg tablet 1,000 mg PO BID #180 tab 05/24/20 01/24/21 Rx nitroglycerin 0.4 mg sublingual 0.4 mg SUBLINGUAL Q5M PRN #20 tab 06/12/20 01/24/21 Rx tablet insulin aspart U-100 100 unit/mL See Rx Instructions SQ .COMPLEX ml 09/01/20 01/24/21 History (3 mL) subcutaneous pen (Novolog Flexpen U-100 Insulin aspart) Victoza 3-Siidro 0.6 mg/0.1 mL (18 1.8 mg SQ DAILY #9 ml NS 10/17/20 01/24/21 Rx mg/3 mL) subcutaneous pen injector (liraglutide) metoprolol tartrate 50 mg tablet 25 mg PO QPM #90 tab 11/20/20 01/24/21 Rx (Lopressor) trazodone 150 mg tablet 150 mg PO HS PRN #90 tab 11/28/20 01/24/21 Rx diclofenac sodium 50 mg 50 mg PO BID 01/24/21 01/24/21 History tablet,delayed release gabapentin 300 mg capsule 300 mg PO TID 01/24/21 01/24/21 History Patient History Medical History HAN (acute kidney injury) Asthma rare use PRN inh Bipolar disorder Cellulitis of right upper extremity Chronic kidney disease COPD (chronic obstructive pulmonary disease) with chronic bronchitis Coronary artery disease Follows with [facility] Depression with anxiety Diabetes mellitus, type 2 IDDM Diabetic peripheral neuropathy associated with type 2 diabetes mellitus Diabetic ulcer of left foot associated with type 2 diabetes mellitus, with fat layer exposed Dizziness Dyslipidemia Gastritis Glaucoma Heart failure, systolic, due to CAD History of colon polyps History of heart attack (2008) x3, 2009 and 2013 Hypertension Hypomagnesemia Hypotension Hypothyroidism Insomnia Marijuana abuse Marijuana use Migraine headache Nocturnal hypoxia Obsessive compulsive disorder On home oxygen therapy 4 LPM cont Posttraumatic stress disorder Restless legs syndrome Severe obstructive sleep apnea-hypopnea syndrome CPAP + 4 LPM O2 Tenosynovitis of hand Tobacco abuse Vitamin D deficiency Surgical History H/O heart artery stent x 3 H/O hernia repair (03/11/17) History of appendectomy History of x 2 History of cardiac catheterization 2008 - [place] - 2 stents 2009 [place] - 1 stent 2013 - [place] - angioplasty, no stents -- all caths done at [facility] in [place], [place] History of cholecystectomy History of colonoscopy most recent 11/11/19 [facility] History of esophagogastroduodenoscopy (EGD) most recent 11/11/19 [facility] S/P cardiac catheterization Dr. Roblero - March 2019 and April 2019. S/P dilation and curettage S/P hysterectomy secondary to endometriosis, tubes also removed. Ovaries retained S/P tonsillectomy Family History Father Diabetes Coronary heart disease Myocardial infarction Hypertension Mother Diabetes Coronary heart disease Hypertension Stroke Slow to wake up after anesthesia Brother Diabetes Grandmother (Maternal) Diabetes Myocardial infarction Hypertension Grandmother (Paternal) Coronary heart disease Aunt Breast cancer Uterine cancer Paternal Grandfather (Maternal) Colorectal cancer Uncle Colorectal cancer Family/Other Ovarian cancer Multiple cousins Denies family history of Prostate cancer Lung cancer Social History Smoking Status: Light tobacco smoker Tobacco Type: Cigarettes Age Started Using Tobacco: 11; Age Quit Using Tobacco: 55; packs per day: 0.5; Cigarettes Per Day: 1/2 pack; Second Hand Exposure: No; Hx Alcohol Use: No Hx Substance Use: Yes Prescribed Medications: Marijuana Last Used Substance: Days (ago) Last Used Substance Other:: yesterday Substance Use Type Other:: medical marijuana card Preferred Language: [place] Communication Ability: Effective Visual Impairment: No Limitations Hearing Ability: Normal Manager [employer] Required: No Beliefs That Will Affect Care: None marital status: Current Living Situation: Spouse current occupational status: employed How many Children do You have: 2 Feels Safe at Home: Yes Safety Concerns: Feels Safe At This Time Childhood Exposure to Second-Hand Smoke: Yes Diet Comment: does not follow diet caffeine: Yes (ice tea) during the past year weight has: other Dental Care, Regularly: Yes Physical Activity Frequency: 1-2 Times per Week Physical Activity Frequency Comment: swimming Seatbelt Use: always Sunscreen Use: No Assistive Devices: Glasses Review of Systems Review of Systems: All systems reviewed & are unremarkable except as noted in Subjective Physical Exam Physical Exam: Constitutional: Alert, oriented, in no acute distress. Wearing supplemental oxygen. HEENT: Head is atraumatic and normocephalic. EOMs intact. Sclera non-icteric. Face is symmetric. No perioral cyanosis. Mucous membranes moist Neck: Supple, no appreciable JVD but difficult exam Pulmonary: Normal respiratory effort, clear to auscultation throughout Cardiac: Regular rate and rhythm, normal S1 and S2, no gallops, no rubs, no murmurs Extremities: No edema. No clubbing or cyanosis. 1+ radial pulses Abdomen: Obese. Normal bowel sounds, soft, non-tender, no abdominal masses palpated Skin: Normal skin color, turgor, and pigmentation. No rash or skin lesions Neurological: Oriented to person, place, and time Results & Data ([facility]) Vital Signs (Past 12 Hours) Vital Signs Pulse Resp BP Pulse Ox Pulse Ox 01/25/21 07:36 98 01/25/21 04:39 67 19 01/25/21 04:10 67 16 112/55 L 98 01/25/21 00:07 94 01/24/21 23:33 71 14 160/94 H 98 Laboratory Results Laboratory Results - last 24 hr 01/24/21 01/24/21 01/24/21 15:49 15:49 15:49 WBC 12.66 H RBC 4.89 Hgb 14.0 Hct 42.9 MCV 87.7 MCH 28.6 MCHC 32.6 RDW Std Deviation 45.0 RDW Coeff of Caitlin 14.0 Plt Count 237 MPV 9.5 Immature Gran % (Auto) 0.6 Neut % (Auto) 67.0 Lymph % (Auto) 25.4 Pettis % (Auto) 5.4 Eos % (Auto) 1.0 Baso % (Auto) 0.6 Neut # (Auto) 8.47 H Lymph # (Auto) 3.22 Pettis # (Auto) 0.68 H Eos # (Auto) 0.13 Baso # (Auto) 0.08 Immature Gran # (Auto) 0.08 H PT 10.2 INR 1.0 APTT 25.5 PTT Ratio 1.0 Sodium 139 Potassium 3.7 Chloride 101 Carbon Dioxide 30 Anion Gap 7.0 BUN 9 Creatinine 0.73 Est Cr Clr Drug Dosing 107.1 Est GFR ( Amer) 107.5 Est GFR (Non-Af Amer) 92.7 BUN/Creatinine Ratio 12.6 Glucose 169 H POC Glucose Estimat Average Glucose Hemoglobin A1c Calcium 9.1 Total Bilirubin 0.5 AST 18 ALT 17 Alkaline Phosphatase 170 H Troponin I < 0.015 Total Protein 7.7 Albumin 3.4 Globulin 4.3 H Albumin/Globulin Ratio 0.8 L SARS-CoV-2 (PCR) Influenza Type A (PCR) Influenza Type B (PCR) RSV (RT-PCR) 01/24/21 01/24/21 01/25/21 15:51 22:36 00:40 WBC RBC Hgb Hct MCV MCH MCHC RDW Std Deviation RDW Coeff of Caitlin Plt Count MPV Immature Gran % (Auto) Neut % (Auto) Lymph % (Auto) Pettis % (Auto) Eos % (Auto) Baso % (Auto) Neut # (Auto) Lymph # (Auto) Pettis # (Auto) Eos # (Auto) Baso # (Auto) Immature Gran # (Auto) PT INR APTT PTT Ratio Sodium Potassium Chloride Carbon Dioxide Anion Gap BUN Creatinine Est Cr Clr Drug Dosing Est GFR ( Amer) Est GFR (Non-Af Amer) BUN/Creatinine Ratio Glucose POC Glucose 142 H Estimat Average Glucose Hemoglobin A1c Calcium Total Bilirubin AST ALT Alkaline Phosphatase Troponin I < 0.015 Total Protein Albumin Globulin Albumin/Globulin Ratio SARS-CoV-2 (PCR) NEGATIVE Influenza Type A (PCR) Negative Influenza Type B (PCR) Negative RSV (RT-PCR) Negative 1201/25/21 01/25/21 03:45 03:45 03:45 WBC 13.08 H RBC 4.22 Hgb 12.1 Hct 37.7 MCV 89.3 MCH 28.7 MCHC 32.1 RDW Std Deviation 46.5 H RDW Coeff of Caitlin 14.2 Plt Count 221 MPV 9.4 Immature Gran % (Auto) Neut % (Auto) Lymph % (Auto) Pettis % (Auto) Eos % (Auto) Baso % (Auto) Neut # (Auto) Lymph # (Auto) Pettis # (Auto) Eos # (Auto) Baso # (Auto) Immature Gran # (Auto) PT INR APTT PTT Ratio Sodium 138 Potassium 4.1 Chloride 104 Carbon Dioxide 31 Anion Gap 3.0 BUN 10 Creatinine 0.72 Est Cr Clr Drug Dosing 108.6 Est GFR ( Amer) 109.3 Est GFR (Non-Af Amer) 94.3 BUN/Creatinine Ratio 13.2 Glucose 152 H POC Glucose Estimat Average Glucose 197 Hemoglobin A1c 8.5 H Calcium 8.5 Total Bilirubin AST ALT Alkaline Phosphatase Troponin I < 0.015 Total Protein Albumin Globulin Albumin/Globulin Ratio SARS-CoV-2 (PCR) Influenza Type A (PCR) Influenza Type B (PCR) RSV (RT-PCR) 01/25/21 01/25/21 07:25 09:56 WBC RBC Hgb Hct MCV MCH MCHC RDW Std Deviation RDW Coeff of Caitlin Plt Count MPV Immature Gran % (Auto) Neut % (Auto) Lymph % (Auto) Pettis % (Auto) Eos % (Auto) Baso % (Auto) Neut # (Auto) Lymph # (Auto) Pettis # (Auto) Eos # (Auto) Baso # (Auto) Immature Gran # (Auto) PT INR APTT PTT Ratio Sodium Potassium Chloride Carbon Dioxide Anion Gap BUN Creatinine Est Cr Clr Drug Dosing Est GFR ( Amer) Est GFR (Non-Af Amer) BUN/Creatinine Ratio Glucose POC Glucose 156 H Estimat Average Glucose Hemoglobin A1c Calcium Total Bilirubin AST ALT Alkaline Phosphatase Troponin I Pending Total Protein Albumin Globulin Albumin/Globulin Ratio SARS-CoV-2 (PCR) Influenza Type A (PCR) Influenza Type B (PCR) RSV (RT-PCR) Diagnostic Findings CXR: No acute cardiopulmonary abnormality. Echo: Normal LV size, wall motion, and systolic function. EF 60-65%. Mild LVH. Grade I diastolic dysfunction. No significant valvular abnormalities. ECG: Normal sinus rhythm at 74 bpm. Poor R wave progression. PG Care Time/CCT Total # of Minutes Spent Total Time Spent with Patient: Total time spent is greater than 50% in coordination of care (as documented) at patient's floor/unit and/or counseling patient: Coding Level of Care Code 32086 Inpt Consult Level 4 Diagnoses Chest pain R07.9 Coronary artery disease I25.10 Chronic diastolic CHF (congestive heart failure) I50.32 Hypertension I10 Dyslipidemia E78.5
--- NOTE | 2021-01-25 10:09 | XCELERA ---
[id number] \\[id number]_Reports\[id number]___[id number]
[2021-01-25] MEDS ORDERED: ATROPINE SULFATE 0.1 MG/ML 10ML SYR IV ONE (10:52)
[2021-01-25] MEDS ORDERED: DOBUTamine HCL 12.5 MG/ML 20 ML VIAL IV ONE (10:53)
[2021-01-25] MEDS ORDERED: METOPROLOL TARTRATE 1 MG/ML VIAL IV ONE (10:53)
--- NOTE | 2021-01-25 12:21 | XCELERA ---
[id number] \\[id number]\PDF_Reports\[id number]___[id number]
--- NOTE | 2021-01-25 13:57 | XRay Report ---
XR chest 2V PA/lateral CLINICAL HISTORY: hypoxia TECHNIQUE: AP and lateral frontal radiograph of the chest was obtained. Comparison: Comparison is made to chest one view 01/24/2021 FINDINGS: No lines and tubes are seen. The cardiomediastinal silhouette is normal. The lungs are clear. No evid ence of pleural effusion or pneumothorax. IMPRESSION: No acute chest disease. ACT 112: Negative or not required by law. Electronically signed by: Sunil Urban M.D. 01/25/2021 1:55 PM
[2021-01-25] MEDS ORDERED: CYCLOBENZAPRINE HCL 5 MG TAB PO ONE (15:54)
[2021-01-25] MEDS: LIDOCAINE 5% 1 PATCH TD SCH (16:12)
[2021-01-25] MEDS: CYCLOBENZAPRINE HCL 5 MG TAB PO SCH (21:01)
--- NOTE | 2021-01-25 23:02 | Hospitalist Progress Note ---
Date of Service January 25, 2021 Assessment & Plan (1) Chest pain: Plan: -Costochondritis versus unstable angina, pain is reproducible with palpation, however, with patient's significant cardiac history, cardiac etiology cannot be ruled out entirely at this time. -Admit patient to Med/Surg with telemetry. -Troponin negative in ED, trend troponins every 6 hour x3 -Daily CBC, BMP -EKG in ED showed no ST elevation or depression -Echo in the a.m. Last echo in March 2020 showed normal left ventricular systolic function, no wall motion abnormalities, ejection fraction between 60 and 65%, no valvular pathology. -Consult cardiology, consultation appreciated -Nitroglycerin sublingual as needed for chest pain -Patient received 4 mg of morphine IV in the ED which provided some relief. On 12/28 Patient will be treated with muscle relaxer and lidocaine patch. Will monitor overnight. Stress test is negative. Low risk for Pulmonary emboli Scores zero on P/E wells criteria. (2) Dyspnea: Plan: -Currently saturating at 98% on room air -Albuterol inhaler every 4 hours as needed for wheezing/shortness of breath -Oxygen as needed with oxygen saturation goal of 90% or higher. -Reports nighttime oxygen need of 5 L nasal cannula (3) Coronary artery disease: Plan: -Last MO in 2009 which did require stent placement -Continue Plavix and metoprolol -Cardiology consulted -Echo in the morning (4) Type II diabetes mellitus, uncontrolled: Plan: -A1C in AM, last A1c in August was 10.4 -Lantus 20 units BID with sliding scale -Withhold Metformin (5) COPD (chronic obstructive pulmonary disease) with chronic bronchitis: Plan: -Albuterol inhaler every 4 hours as needed for wheezing/shortness of breath -Recommend smoking cessation (6) Chronic diastolic CHF (congestive heart failure): Plan: -Does appear to have some fluid overload with mild pitting edema -No appreciable JVD or crackles heard on auscultation -Continue Lopressor 25 mg at night -D/C IV fluid after 1 L in the ED, patient can tolerate p.o. hydration (7) Hypertension: Plan: -Continue metoprolol (8) Severe obstructive sleep apnea-hypopnea syndrome: Plan: -5 L oxygen via nasal cannula at night Admission and Anticipated Discharge Date Admission Date: January 24, 2021 Subjective Patient reports her pain is similar to when she came to the ER in October. She reports that pain is mainly in her left thoracic lower back. Pain worsenes when she takes a deep breath. Lying flat does not make the pain worse. Patient reports pain makes her SOB. Review of Systems Review of Systems: All systems reviewed & are unremarkable except as noted in HPI & below Physical Exam Physical Exam: GENERAL: Patient in no acute distress. HEENT: Head is atraumatic, normocephalic. Sclerae anicteric. EOM's intact. Facies symmetric. No perioral cyanosis. NECK: No JVD. JVP is not elevated. Carotid upstrokes are + 2 bilaterally without obvious bruits. CHEST/LUNGS: Clear to auscultation throughout all lung olguin. No wheezes, rales, or crackles. CVS: S1 and S2 are regular without obvious murmurs, gallops, or rubs. PMI is nondisplaced. No lifts, heaves, or thrills. No abdominal aortic or renal bruits. ABDOMINAL EXAM: Bowel sounds are present. No masses, organomegaly, or tenderness. EXTREMITIES: Pigmentation changes present in bilateral legs and feet. 2 cm bullae oozing sanguinous fluid noted over the Achilles region of the left lower extremity. Warmth noted throughout the left foot up into the left calf. No clubbing or cyanosis. No edema. Intact dorsalis pedis and radial pulses bilaterally. NEUROLOGIC EXAM: Patient is awake, alert, and oriented. Pleasant and cooperative. Answers questions appropriately. Speech is clear. Normal movement in all 4 extremities. Gait pattern was not assessed. MSK:Tenderness to palpation on paraspinal muscle near T11 AND T12 Results & Data Results & Data ([facility]) Vital Signs (Past 12 Hours) Vital Signs Pulse Pulse Resp BP BP Pulse Ox 01/25/21 21:30 66 14 135/74 99 01/25/21 18:00 75 20 134/73 93 01/25/21 16:00 70 20 120/56 L 92 01/25/21 13:12 70 16 106/63 96 PG Care Time/CCT Total # of Minutes Spent Total Time Spent with Patient: Total time spent is greater than 50% in coordination of care (as documented) at patient's floor/unit and/or counseling patient: Coding Level of Care Code 21525 Subseq Obs Care Lvl 3 Diagnoses Chest pain R07.9 Dyspnea R06.00 Coronary artery disease I25.10 Type II diabetes mellitus, uncontrolled E11.65 COPD (chronic obstructive pulmonary disease) with chronic bronchitis J44.9 Chronic diastolic CHF (congestive heart failure) I50.32 Hypertension I10 Severe obstructive sleep apnea-hypopnea syndrome G47.33
--- NOTE | 2021-01-25 23:06 | Billing Data ---
Date of Service January 24, 2021 Coding Level of Care Code INT OBSERVATION CARE 70M LVL 3
[2021-01-26 05:17] LABS: Hematocrit (blood only) 38.7 % (37-47); Hemoglobin 12.4 g/dL (12.0-16.0); Mean Corpuscular Hemoglobin 28.4 pg (25-34); Mean Corpuscular Volume 88.8 fL (80-100); Mean Platelet Volume 9.3 fL (7.4-10.4); Platelet Count 192 K/uL (130-400); RDW Coefficient of Variation 13.9 % (11.5-14.5); RDW Standard Deviation 45.6 fL (36.4-46.3); Red Blood Count 4.36 M/uL (4.2-5.4)
[2021-01-26] MEDS: INSULIN ASPART PER UNIT SC SCH ×2 (08:54→13:18)
[2021-01-26] MEDS: LIDOCAINE 5% 1 PATCH TD SCH (09:07)
[2021-01-26] MEDS: INSULIN GLARGINE SOLOSTAR 100 UNITS/ML 3 ML PEN SC SCH (09:07)
[2021-01-26] MEDS: CYCLOBENZAPRINE HCL 5 MG TAB PO SCH ×2 (09:09→13:19)
[2021-01-26] MEDS: GABAPENTIN 300 MG CAP PO SCH (09:09)
[2021-01-26] MEDS: ACETAMINOPHEN 325 MG TAB PO PRN ×2 (09:24→13:19)
[2021-01-26] MEDS: MoRPHine SULFATE 2 MG/ML CARP IV PRN ×2 (15:11→15:12)
--- NOTE | 2021-01-26 21:00 | Electrocardiogram Report ---
Test Reason : Blood Pressure : / mmHG Vent. Rate : 074 BPM Atrial Rate : 074 BPM P-R Int : 148 ms QRS Dur : 086 ms QT Int : 426 ms P-R-T Axes : 039 010 067 degrees QTc Int : 472 ms Normal sinus rhythm Possible Anterior infarct , age undetermined Abnormal ECG When compared with ECG of 17-OCT-2020 15:05, Questionable change in QRS axis Confirmed by Tavo Burton ([id number]) on 01/26/2021 9:00:26 PM Referred By: REFERRED SELF Confirmed By:Tavo Burton
--- NOTE | 2021-01-30 16:27 | Discharge Summary ---
Date of Service January 26, 2021 Admission HPI Per Admitting Provider Patient is a 55-year-old female with a past medical history of previous AR with stents placed in 2009, DM 2, COPD, heart failure with preserved ejection fraction, hyperlipidemia, hypertension, hypothyroidism, and nicotine dependence presented to the hospital for the chief complaint of chest pain x4 days. Patient reports that for the past 7 days she has had the complaint of harsh cough, runny nose, and shortness of breath that has been getting progressively worse. Patient reports that she had 2 Covid contacts recently. Per patient, on day 3 of these ongoing cold-like symptoms, patient began developing left-sided chest pain that is progressively gotten worse and is currently an 8 out of 10 today and describes it as achy. She reports since Friday she is used home nitro 3 times which relieved the pain for about 3 hours but eventually always returns. She reports that her shortness of breath and chest pain also gets worse with activity such as while at work where she does a lot of walking. Patient reports that the chest pain also radiates to her back and down her arm. The pain is reportedly constant, however, it is at its peak when she takes a deep breath. While she is at work a couple days ago she was sent home due to elevated blood pressure, elevated heart rate, and her oxygen saturation was 88% according to the patient. Reports utilizing her albuterol inhaler daily for the past few days whereas prior to this she was only using it once or twice per month. Patient is also noted increased lower extremity edema. She does typically have some due to a history of congestive heart failure, however, she was taken off of her Lasix for unknown reason. Additionally has had intermittent headaches over the past week, but she has not used any intervention such as Tylenol or Aleve. Patient currently smokes a pack of cigarettes per day and has a 30 to 40 pack year history. Patient also reports having a previous AR in 2009 that required stent placement. Patient reports no other complaints at this time. Principal Diagnosis chest pain Discharge Exam GENERAL: Patient in no acute distress. HEENT: Head is atraumatic, normocephalic. Sclerae anicteric. EOM's intact. Facies symmetric. No perioral cyanosis. NECK: No JVD. JVP is not elevated. Carotid upstrokes are + 2 bilaterally w ithout obvious bruits. CHEST/LUNGS: Clear to auscultation throughout all lung olguin. No wheezes, rales, or crackles. CVS: S1 and S2 are regular without obvious murmurs, gallops, or rubs. PMI is n ondisplaced. No lifts, heaves, or thrills. No abdominal aortic or renal bruits. ABDOMINAL EXAM: Bowel sounds are present. No masses, organomegaly, or tenderness. EXTREMITIES: Pigmentation changes present in bilateral legs and feet. 2 cm bullae oozing sanguinous fluid noted over the Achilles region of the left lower extremity. Warmth noted throughout the left foot up into the left calf. No c lubbing or cyanosis. No edema. Intact dorsalis pedis and radial pulses bilaterally. NEUROLOGIC EXAM: Patient is awake, alert, and oriented. Pleasant and cooperative. Answers questions appropriately. Speech is clear. Normal movement in all 4 extremities. Gait pattern was not assessed. MSK:Tenderness to palpation on paraspinal muscle near T11 AND T12 Discharge Data Allergies Allergy/AdvReac Type Severity Reaction Status Date / Time sulfamethoxazole Allergy Severe Went into Verified 11/28/20 15:55 [From Bactrim] Renal Failure trimethoprim [From Bactrim] Allergy Severe Went into Verified 11/28/20 15:55 Renal Failure Consultations 01/24/21 17:06 ED Decision to Admit Stat 01/24/21 22:15 Consult Cardiology Routine Hospital Course (1) Chest pain: -Costochondritis versus unstable angina, pain is reproducible with palpation, however, with patient's significant cardiac history, cardiac etiology cannot be ruled out entirely at this time. -Admit patient to Med/Surg with telemetry. -Troponin negative in ED, trend troponins every 6 hour x3 -Daily CBC, BMP -EKG in ED showed no ST elevation or depression -Echo in the a.m. Last echo in March 2020 showed normal left ventricular systolic function, no wall motion abnormalities, ejection fraction between 60 and 65%, no valvular pathology. -Consult cardiology, consultation appreciated -Nitroglycerin sublingual as needed for chest pain -Patient received 4 mg of morphine IV in the ED which provided some relief. At discharge: Patient will be treated with muscle relaxer and lidocaine patch. This appears to be more musculoskeletal in nature. Stress test is negative. Low risk for pulmonary emboli. Will discharge patient on tramadol and muscle relaxer. Due to interaction with tramadol and cycloebenzaprine, recommend limiting taking both meds in same 24 hour periods. May benefit from OMT. (2) Dyspnea: -Currently saturating at 98% on room air -Albuterol inhaler every 4 hours as needed for wheezing/shortness of breath -Oxygen as needed with oxygen saturation goal of 90% or higher. -Reports nighttime oxygen need of 5 L nasal cannula (3) Coronary artery disease: -Last AR in 2009 which did require stent placement -Continue Plavix and metoprolol -Cardiology consulted -Echo in the morning (4) Type II diabetes mellitus, uncontrolled: -A1C in AM, last A1c in August was 10.4 -Lantus 20 units BID with sliding scale -Withhold Metformin (5) COPD (chronic obstructive pulmonary disease) with chronic bronchitis: -Albuterol inhaler every 4 hours as needed for wheezing/shortness of breath -Recommend smoking cessation (6) Chronic diastolic CHF (congestive heart failure): -Does appear to have some fluid overload with mild pitting edema -No appreciable JVD or crackles heard on auscultation -Continue Lopressor 25 mg at night -D/C IV fluid after 1 L in the ED, patient can tolerate p.o. hydration (7) Hypertension: -Continue metoprolol (8) Severe obstructive sleep apnea-hypopnea syndrome: -5 L oxygen via nasal cannula at night Total Time Total Time Spent Total Time Spent (In Minutes): 32 Discharge Plan Discharge Items Patient Disposition: Home - Self-Care Reason For Visit: CHEST PAIN Discharge Diagnosis: chest pain Condition on Discharge: Good Activity: Resume your previous activity Non-emergency contact: Primary Care Provider Call non-emergency contact if: you have any medication questions Follow-up/Referrals: Swati Berger DO [Primary Care Provider] - Diet: Regular Addtl Attending Provider Instructions: You Were found to have back pain. There was concern that it could have been from your heart, but stress test was negative. At this point, it appears more musculoskeletal in nature. May benefit from OMT (soft tissue manipulation) She will be on tramadol for pain control and steroids taper for for decreased inflammation with hopes of better pain control. Muscle relaxers as needed and followup with PCP in 1 week Pending Studies at Discharge: No Stand-Alone Forms: My [employer], Work/School Release, Smoking Cessation Medications and DC Order Prescriptions: New acetaminophen 325 mg Tablet 650 mg PO Q4H PRN (Reason: pain) Qty: 20 RF: 0 lidocaine 5 % Adhesive Patch,Medicated 1 patch transdermal QAM Qty: 7 RF: 0 prednisone 10 mg tablet 10 mg PO DAILY Qty: 20 RF: 0 Continued clopidogrel [Plavix] 75 mg tablet 75 mg PO QPM Qty: 90 RF: 1 metformin 1,000 mg tablet 1,000 mg PO BID Qty: 180 RF: 1 nitroglycerin 0.4 mg tablet, sublingual 0.4 mg sublingual Q5M PRN (Reason: chest pain) Qty: 20 RF: 2 Victoza 3-Isidro 0.6 mg/0.1 mL (18 mg/3 mL) pen injector 1.8 mg SQ DAILY Qty: 9 RF: 2 metoprolol tartrate [Lopressor] 50 mg tablet 25 mg PO QPM Qty: 90 RF: 3 insulin aspart U-100 [Novolog Flexpen U-100 Insulin] 100 unit/mL (3 mL) insulin pen See Rx Instructions SQ .COMPLEX RF: 0 Levemir FlexTouch U-100 Insuln 100 unit/mL (3 mL) insulin pen 80 unit SQ QPM RF: 0 trazodone 150 mg tablet 150 mg PO HS PRN (Reason: Insomnia) Qty: 90 RF: 3 albuterol sulfate 90 mcg/actuation HFA aerosol inhaler 2 puffs INH Q4H PRN (Reason: shortness of breath or wheezing) Qty: 8.5 RF: 0 gabapentin 300 mg capsule 300 mg PO TID RF: 0 diclofenac sodium 50 mg tablet,delayed release (DR/EC) 50 mg PO BID RF: 0 No Action tramadol 50 mg tablet 50 mg PO BID PRN (Reason: severe pain (scale score 7-10)) Qty: 10 RF: 0 cyclobenzaprine 5 mg tablet 5 mg PO TID PRN (Reason: muscle spasm) Qty: 21 RF: 0 Discharge Orders: Discharge Order (Routine); Ordered 01/26/21 Ordered By: Lebron Farias/Other Patient Handouts: Managing Type 2 Diabetes, Special Foot [facility] for Diabetes Admission Data Admit Date/Time: 01/24/21 18:58 Attending Provider: Lebron Bills Admit Provider: Carlos Ugalde Primary Care Provider: Swati Berger Other Providers: Lebron Bills ; Tavo Burton Coding Level of Care Code 11072 OBS Care - Discharge Diagnoses Chest pain R07.9 Dyspnea R06.00 Coronary artery disease I25.10 Type II diabetes mellitus, uncontrolled E11.65 COPD (chronic obstructive pulmonary disease) with chronic bronchitis J44.9 Chronic diastolic CHF (congestive heart failure) I50.32 Hypertension I10 Severe obstructive sleep apnea-hypopnea syndrome G47.33
== END 2021-01-26 16:15 | disposition home or self-care (01) ==
LOC: ED 15:11 → EDINP 15:11
DX: Z79.82 Long term (current) use of aspirin; J44.9 Chronic obstructive pulmonary disease, unspecified; R07.9 Chest pain, unspecified; E55.9 Vitamin D deficiency, unspecified; E11.40 Type 2 diabetes mellitus with diabetic neuropathy, unspecified; E66.9 Obesity, unspecified; Z68.41 Body mass index [BMI] 40.0-44.9, adult; Z88.2 Allergy status to sulfonamides; I25.2 Old myocardial infarction; E78.5 Hyperlipidemia, unspecified; I50.32 Chronic diastolic (congestive) heart failure; I11.0 Hypertensive heart disease with heart failure; I25.10 Atherosclerotic heart disease of native coronary artery without angina pectoris; Z86.31 Personal history of diabetic foot ulcer; Z99.89 Dependence on other enabling machines and devices; Z79.4 Long term (current) use of insulin; Z88.8 Allergy status to other drugs, medicaments and biological substances; E03.9 Hypothyroidism, unspecified; F17.210 Nicotine dependence, cigarettes, uncomplicated; Z95.5 Presence of coronary angioplasty implant and graft; Z99.81 Dependence on supplemental oxygen

== ENCOUNTER 2021-08-27 10:40 | Inpatient (IN) ==
--- NOTE | 2021-08-27 11:08 | Emergency Department Note ---
Impression & Plan Suicidal ideations, Mood disorder, Leukocytosis ED Provider Note NAME: MARY BETH OLIVERA AGE: 56 SEX: F : 1965 ARRIVES VIA: Walk-In INFORMANT: Patient ED PROVIDER(S): Samuel Stephenson DO CHIEF COMPLAINT: depression HPI: Patient is a 56-year-old female with a past medical history of migraines, diabetes, hyperlipidemia, PUD, asthma who presents the ER for suicidal ideations. She notes she has been having these thoughts for the past week but they have been getting significantly worse as the week has been going on. She has thought about how to kill her self which includes crashing her car and or overdosing on her sleeping medications. She has not done this yet as she does not want her to find her. Denies any belly pain, nausea, vomiting, or d iarrhea. No dysuria, urgency, or frequency. No chest pain or shortness of breath. No cough or congestion. No other exacerbating or remitting factors. ROS: See above HPI for pertinent positives & negatives. A total of 10 systems reviewed and were otherwise negative. PAST MEDICAL HISTORY:See Below PAST SURGICAL HISTORY:See Below FAMILY HISTORY:See Below SOCIAL HISTORY:See Below HOME MEDICATIONS:See Below ALLERGIES:See Below VITALS:See Below PHYSICAL EXAMINATION: GENERAL: Sitting up in bed, alert, tearful, disheveled EYE EXAM: normal conjunctiva. OROPHARYNX: no exudate, no erythema, lips, buccal mucosa, and tongue normal and mucous membranes are moist NECK: supple, no nuchal rigidity, no adenopathy, non-tender LUNGS: Clear to auscultation. Normal chest wall mechanics HEART: no murmurs, S1 normal and S2 normal ABDOMEN: abdomen soft, non-tender, normo-active bowel sounds, no masses, no rebound or guarding. UPPER EXTREMITIES: upper extremities are grossly normal. LOWER EXTREMITIES: No pitting edema. NEURO EXAM: Normal sensorium, cranial nerves II-XII grossly intact, normal speech, no gross weakness of arms, no gross weakness of legs. PSYCH: Admits to suicidal ideations with a plan MEDICAL DECISION MAKING: Patient is a 56-year-old female who presents the ER for the above-stated complaint. IV was established blood work was obtained. Labs show a le ukocytosis of 15,000 which has been chronically elevated since 2020. No significant anemia. BMP with slightly elevated glucose at 174. LFTs bilirubin was unremarkable. TSH was normal. Patient denies any urinary symptoms. She has no white cells but is positive for nitrates. She has no urinary symptoms. Will not treat at this time. Will defer to culture. Alcohol was negative. Tox was positive for marijuana and ecstasy. Tylenol and salicylates were negative. COVID was negative. Patient has no other complaints at this time. Patient is medically stable at this time. Medications were ordered. She wears 6 L at night and consequently 3 S. will not take. Currently bed searching. Patient was signed out to Dr. Funk. Start Time: 1045 Reason: Patient with PMHx of asthma underwent ED Observation for psychiatric placement . Fam Hx: No pertinent family history SocHx: See Below Assessment(s): Reevaluated multiple times Summary: As described above in MDM Disposition: Signed out to Dr. Brar at 08/27/2021 at 2:45 PM Total Time: 4hrs Triage Nursing notes reviewed. Limited review of prior medical records performed Vital Signs: reviewed and remarkable for HTN Differential diagnosis: Differential diagnoses includes but is not limited to gastritis, peptic ulcer disease, GERD, gallbladder disease, pancreatitis, small bowel obstruction, acute coronary syndrome, pericarditis, ischemic bowel, irritable bowel disease, irritable bowel syndrome, appendicitis, diverticulitis, malignancy, hernia, urinary tract infection, torsion, perforation, trauma, infectious. ER treatment provided: See below Diagnostics interpreted by me: ECG: none Laboratory studies: As stated above and show below. Imaging studies: See below Consultation(s): none Procedures: none Critical Care: None Past Med/Surg History Medical History (Updated 08/27/21 @ 14:25 by Samuel Stephenson DO) Asthma rare use PRN inh Bipolar disorder Cellulitis of right upper extremity Chronic kidney disease COPD (chronic obstructive pulmonary disease) with chronic bronchitis Coronary artery disease Follows with [facility] COVID Depression with anxiety Diabetes mellitus, type 2 IDDM Diabetic peripheral neuropathy associated with type 2 diabetes mellitus Diabetic ulcer of left foot associated with type 2 diabetes mellitus, with fat layer exposed Dizziness Dyslipidemia Gastritis Glaucoma Heart failure, systolic, due to CAD History of colon polyps History of heart attack (2009) x3, 2009 and 2013 Hypertension Hypomagnesemia Hypotension Hypothyroidism Insomnia Lower extremity edema Marijuana abuse Marijuana use Migraine headache Nocturnal hypoxia Obsessive compulsive disorder On home oxygen therapy 4 LPM cont Posttraumatic stress disorder Restless legs syndrome Severe obstructive sleep apnea-hypopnea syndrome CPAP + 4 LPM O2 Tenosynovitis of hand Tobacco abuse Vitamin D deficiency Surgical History H/O heart artery stent x 3 H/O hernia repair (03/11/17) History of appendectomy History of x 2 History of cardiac catheterization 2008 - [facility] - 2 stents 2009 - [place] - 1 stent 2013 - [facility] - angioplasty, no stents -- all caths done at [facility] in [place], [place] History of cataract surgery 11/30/20 R eye and 12/12/20 L eye History of cholecystectomy History of colonoscopy most recent 11/11/19 [facility] History of esophagogastroduodenoscopy (EGD) most recent 11/11/19 [facility] History of removal of cyst FINAL DIAGNOSIS Scalp, excision: - Heavily inflamed squamous cyst consistent with an epidermal cyst. In office procedure Dr. Trujillo 07/25/2021 Hx of cataract surgery S/P cardiac catheterization Dr. Roblero - March 2019 and April 2019. S/P dilation and curettage S/P hysterectomy secondary to endometriosis, tubes also removed. Ovaries retained S/P tonsillectomy Family History Father Diabetes Coronary heart disease Myocardial infarction Hypertension Mother Diabetes Coronary heart disease Hypertension Stroke Slow to wake up after anesthesia Brother Diabetes Grandmother (Maternal) Diabetes Myocardial infarction Hypertension Grandmother (Paternal) Coronary heart disease Aunt Breast cancer Uterine cancer Grandfather (Maternal) Colorectal cancer Uncle Colorectal cancer Family/Other Ovarian cancer Denies family history of Prostate cancer Lung cancer Social History Smoking Status: Never smoker Tobacco Type: Cigarettes Age Started Using Tobacco: 11; Age Quit Using Tobacco: 55; packs per day: 0.5; Cigarettes Per Day: 1/2 pack; Second Hand Exposure: No; Hx Alcohol Use: No Hx Substance Use: Yes Prescribed Medications: Marijuana Last Used Substance: Days (ago) Last Used Substance Other:: yesterday Substance Use Type Other:: medical marijuana card Preferred Language: Kiswahili Communication Ability: Effective Visual Impairment: No Limitations Hearing Ability: Normal Polygraph Examiner Required: No Beliefs That Will Affect Care: None marital status: Current Living Situation: Spouse current occupational status: employed How many Children do You have: 2 Feels Safe at Home: Yes Childhood Exposure to Second-Hand Smoke: Yes Diet Comment: does not follow diet caffeine: Yes (ice tea) during the past year weight has: other Dental Care, Regularly: Yes Physical Activity Frequency: 1-2 Times per Week Physical Activity Frequency Comment: swimming Seatbelt Use: always Sunscreen Use: No Assistive Devices: Oxygen - at Night Allergies Allergies Allergy/AdvReac Type Severity Reaction Status Date / Time sulfamethoxazole Allergy Severe Went into Verified 08/21/21 11:23 [From Bactrim] Renal Failure trimethoprim [From Bactrim] Allergy Severe Went into Verified 08/21/21 11:23 Renal Failure Home Meds Home Medications Medication Instructions Recorded Confirmed insulin aspart U-100 100 unit/mL See Rx Instructions subcut .COMPLEX 09/01/20 08/27/21 (3 mL) subcutaneous pen (Novolog Flexpen U-100 Insulin aspart) gabapentin 300 mg capsule 600 mg PO BID 01/24/21 08/27/21 furosemide 20 mg tablet 40 mg PO DAILY 05/23/21 08/27/21 escitalopram oxalate 10 mg tablet 10 mg PO DAILY 08/27/21 08/27/21 Previous Rx's Medication Instructions Recorded albuterol sulfate 90 mcg/actuation 2 puffs inhalation Q4H PRN 10/28/17 aerosol inhaler shortness of breath or wheezing #8.5 grams clopidogrel 75 mg tablet (Plavix) 75 mg PO QPM #90 tabs 05/24/20 metformin 1,000 mg tablet 1,000 mg PO BID #180 tabs 05/24/20 nitroglycerin 0.4 mg sublingual 0.4 mg sublingual Q5M PRN chest 06/12/20 tablet pain #20 tabs Victoza 3-Isidro 0.6 mg/0.1 mL (18 1.8 mg (0.3 mL) subcut DAILY #9 mL 10/17/20 mg/3 mL) subcutaneous pen injector (liraglutide) metoprolol tartrate 50 mg tablet 25 mg PO QPM #90 tabs 11/20/20 (Lopressor) acetaminophen 325 mg tablet 650 mg PO Q4H PRN pain #20 tabs 01/26/21 Auto Titrating CPAP #1 ea 01/31/21 atorvastatin 80 mg tablet 80 mg PO DAILY #90 tabs 04/18/21 levothyroxine 50 mcg tablet 50 mcg PO QAM #90 tabs 04/20/21 (Synthroid) compr.stocking,knee,long,large #12 ea 05/10/21 compress.stocking,knee,reg,med #2 ea 05/11/21 lidocaine 5 % topical patch 1 patch transdermal QAM #7 ea 05/24/21 trazodone 150 mg tablet 150 mg PO HS PRN Insomnia #30 tabs 05/24/21 insulin detemir U-100 100 unit/mL 80 unit (0.8 mL) subcut QPM #10 06/04/21 (3 mL) subcutaneous pen (Levemir Boxes FlexTouch U-100 Insulin) losartan 25 mg tablet 25 mg PO DAILY #30 tabs 06/04/21 Matthew Hose #4 ea 07/03/21 topiramate 25 mg tablet (Topamax) 25 mg PO BID #60 tabs 07/23/21 diclofenac sodium 50 mg 50 mg PO BID #60 tabs 08/15/21 tablet,delayed release duloxetine 30 mg capsule,delayed 30 mg PO DAILY #30 caps 08/21/21 release (Cymbalta) lorazepam 0.5 mg tablet (Ativan) 0.5 mg PO TID PRN anxiety #9 tabs 08/21/21 Results & Data (ED) Vital Signs Vital Signs - 24 hr 08/27/21 10:45 08/27/21 11:02 Temperature 36.5 C Temperature Source Temporal Artery Scan Oral Pulse Rate 86 Respiratory Rate 20 Respiratory Effort / Characteristics Non-Labored Spontaneous Respiratory Depth Normal Respiratory Pattern Regular Blood Pressure 142/88 H Blood Pressure Mean 106 Blood Pressure Position Sitting Pulse Oximetry 96 Oxygen Delivery Method Room Air Sepsis Recent Fever Within 48 Hours No Sepsis New/Unexplained Change in Mental Status No Sepsis Action Taken by Nursing No Action Required Laboratory Data Result diagrams: 08/27/21 11:40 08/27/21 11:40 Lab Results 08/27/21 08/27/21 08/27/21 Range/Units 11:26 11:26 11:35 WBC (4.8-10.8) K/ul RBC (3.93-5.22) M/uL Hgb (12.0-16.0) g/dl Hct (34.1-44.9) % MCV (80.0-100.0) fL MCH (25.0-34.0) pg MCHC (32.0-36.0) g/dL RDW Std Deviation (36.4-46.3) fL RDW Coeff of Caitlin (11.5-14.5) % Plt Count (130-400) K/uL MPV (9.4-12.3) fL Immature Gran % (Auto) % Neut % (Auto) % Lymph % (Auto) % Irwin % (Auto) % Eos % (Auto) % Baso % (Auto) % Neut # (Auto) (1.4-6.5) K/uL Lymph # (Auto) (1.2-3.4) K/uL Irwin # (Auto) (0.24-0.82) K/uL Eos # (Auto) (0-0.50) K/uL Baso # (Auto) (0-0.2) K/uL Immature Gran # (Auto) (0.00-0.02) K/uL Sodium (136-145) mmol/L Potassium (3.5-5.1) mmol/L Chloride (98-107) mmol/L Carbon Dioxide (21-32) mmol/L Anion Gap (3-11) BUN (6-23) mg/dl Creatinine (0.6-1.2) mg/dl Est Cr Clr Drug Dosing ml/min Est GFR ( Amer) ml/min Est GFR (Non-Af Amer) ml/min BUN/Creatinine Ratio (10-20) Glucose (70-99(Fasting)) mg/dl POC Glucose 190 H (70-99) mg/dl Calcium (8.5-10.1) mg/dl Total Bilirubin (0.2-1.0) mg/dl AST (13-39) U/L ALT (7-52) U/L Alkaline Phosphatase (34-104) U/L Total Protein (6.0-8.3) gm/dl Albumin (3.4-5.0) gm/dl Globulin (2.5-4.0) gm/dl Albumin/Globulin Ratio (0.9-2) TSH (0.300-4.500) uIu/ml Urine Color Dark Yellow Urine Appearance Cloudy A (Clear) Urine pH 5.0 (4.5-7.5) Ur Specific Rowe 1.018 (1.000-1.030) Urine Protein 2+ H (Negative) Urine Glucose (UA) Negative (Negative) Urine Ketones Negative (Negative) Urine Blood Negative (Negative) Urine Nitrite Positive A (Negative) Urine Bilirubin Negative (Negative) Urine Urobilinogen Negative (Negative) Ur Leukocyte Esterase Negative (Negative) Urine WBC (Auto) 1-5 (0-5) /hpf Urine RBC (Auto) 0-4 (0-4) /hpf U Hyaline Cast (Auto) 1-5 (0-5) /lpf U Epithel Cells (Auto) >30 H (0-5) /lpf Urine Bacteria (Auto) 4+ H (Negative) Salicylates (3.0-30) mg/dl Urine Opiates Screen Neg (Neg) Ur Methadone, Qual Neg (Neg) Acetaminophen (10-30) ug/ml Urine Barbiturates Neg (Neg) Ur Phencyclidine (PCP) Neg (Neg) U Amphetamin/Meth Scrn Neg (Neg) MDMA (Ecstasy) Screen Pos H (Neg) U Benzodiazepines Scrn Neg (Neg) Ur Cocaine Metabolite Neg (Neg) U Marijuana (THC) Screen Pos H (Neg) Ethyl Alcohol mg/dL (<10.0) mg/dl SARS-CoV-2, RNA, NAAT (NEGATIVE) 08/27/21 08/27/21 08/27/21 Range/Units 11:40 11:40 11:40 WBC 15.34 H (4.8-10.8) K/ul RBC 5.61 H (3.93-5.22) M/uL Hgb 16.3 H (12.0-16.0) g/dl Hct 49.0 H (34.1-44.9) % MCV 87.3 (80.0-100.0) fL MCH 29.1 (25.0-34.0) pg MCHC 33.3 (32.0-36.0) g/dL RDW Std Deviation 43.8 (36.4-46.3) fL RDW Coeff of Caitlin 13.6 (11.5-14.5) % Plt Count 246 (130-400) K/uL MPV 9.5 (9.4-12.3) fL Immature Gran % (Auto) 0.5 % Neut % (Auto) 69.2 % Lymph % (Auto) 23.5 % Irwin % (Auto) 4.6 % Eos % (Auto) 1.0 % Baso % (Auto) 1.2 % Neut # (Auto) 10.59 H (1.4-6.5) K/uL Lymph # (Auto) 3.61 H (1.2-3.4) K/uL Irwin # (Auto) 0.71 (0.24-0.82) K/uL Eos # (Auto) 0.16 (0-0.50) K/uL Baso # (Auto) 0.19 (0-0.2) K/uL Immature Gran # (Auto) 0.08 H (0.00-0.02) K/uL Sodium 137 (136-145) mmol/L Potassium 4.1 (3.5-5.1) mmol/L Chloride 103 (98-107) mmol/L Carbon Dioxide 25 (21-32) mmol/L Anion Gap 9 (3-11) BUN 14 (6-23) mg/dl Creatinine 0.92 (0.6-1.2) mg/dl Est Cr Clr Drug Dosing 79.3 ml/min Est GFR ( Amer) 80.7 ml/min Est GFR (Non-Af Amer) 69.6 ml/min BUN/Creatinine Ratio 15.2 (10-20) Glucose 174 H (70-99(Fasting)) mg/dl POC Glucose (70-99) mg/dl Calcium 9.2 (8.5-10.1) mg/dl Total Bilirubin 0.8 (0.2-1.0) mg/dl AST 20 (13-39) U/L ALT 9 (7-52) U/L Alkaline Phosphatase 111 H (34-104) U/L Total Protein 7.9 (6.0-8.3) gm/dl Albumin 4.4 (3.4-5.0) gm/dl Globulin 3.5 (2.5-4.0) gm/dl Albumin/Globulin Ratio 1.3 (0.9-2) TSH 2.212 (0.300-4.500) uIu/ml Urine Color Urine Appearance (Clear) Urine pH (4.5-7.5) Ur Specific Rowe (1.000-1.030) Urine Protein (Negative) Urine Glucose (UA) (Negative) Urine Ketones (Negative) Urine Blood (Negative) Urine Nitrite (Negative) Urine Bilirubin (Negative) Urine Urobilinogen (Negative) Ur Leukocyte Esterase (Negative) Urine WBC (Auto) (0-5) /hpf Urine RBC (Auto) (0-4) /hpf U Hyaline Cast (Auto) (0-5) /lpf U Epithel Cells (Auto) (0-5) /lpf Urine Bacteria (Auto) (Negative) Salicylates (3.0-30) mg/dl Urine Opiates Screen (Neg) Ur Methadone, Qual (Neg) Acetaminophen (10-30) ug/ml Urine Barbiturates (Neg) Ur Phencyclidine (PCP) (Neg) U Amphetamin/Meth Scrn (Neg) MDMA (Ecstasy) Screen (Neg) U Benzodiazepines Scrn (Neg) Ur Cocaine Metabolite (Neg) U Marijuana (THC) Screen (Neg) Ethyl Alcohol mg/dL (<10.0) mg/dl SARS-CoV-2, RNA, NAAT (NEGATIVE) 08/27/21 08/27/21 08/27/21 Range/Units 11:40 11:40 11:45 WBC (4.8-10.8) K/ul RBC (3.93-5.22) M/uL Hgb (12.0-16.0) g/dl Hct (34.1-44.9) % MCV (80.0-100.0) fL MCH (25.0-34.0) pg MCHC (32.0-36.0) g/dL RDW Std Deviation (36.4-46.3) fL RDW Coeff of Caitlin (11.5-14.5) % Plt Count (130-400) K/uL MPV (9.4-12.3) fL Immature Gran % (Auto) % Neut % (Auto) % Lymph % (Auto) % Irwin % (Auto) % Eos % (Auto) % Baso % (Auto) % Neut # (Auto) (1.4-6.5) K/uL Lymph # (Auto) (1.2-3.4) K/uL Irwin # (Auto) (0.24-0.82) K/uL Eos # (Auto) (0-0.50) K/uL Baso # (Auto) (0-0.2) K/uL Immature Gran # (Auto) (0.00-0.02) K/uL Sodium (136-145) mmol/L Potassium (3.5-5.1) mmol/L Chloride (98-107) mmol/L Carbon Dioxide (21-32) mmol/L Anion Gap (3-11) BUN (6-23) mg/dl Creatinine (0.6-1.2) mg/dl Est Cr Clr Drug Dosing ml/min Est GFR ( Amer) ml/min Est GFR (Non-Af Amer) ml/min BUN/Creatinine Ratio (10-20) Glucose (70-99(Fasting)) mg/dl POC Glucose (70-99) mg/dl Calcium (8.5-10.1) mg/dl Total Bilirubin (0.2-1.0) mg/dl AST (13-39) U/L ALT (7-52) U/L Alkaline Phosphatase (34-104) U/L Total Protein (6.0-8.3) gm/dl Albumin (3.4-5.0) gm/dl Globulin (2.5-4.0) gm/dl Albumin/Globulin Ratio (0.9-2) TSH (0.300-4.500) uIu/ml Urine Color Urine Appearance (Clear) Urine pH (4.5-7.5) Ur Specific Rowe (1.000-1.030) Urine Protein (Negative) Urine Glucose (UA) (Negative) Urine Ketones (Negative) Urine Blood (Negative) Urine Nitrite (Negative) Urine Bilirubin (Negative) Urine Urobilinogen (Negative) Ur Leukocyte Esterase (Negative) Urine WBC (Auto) (0-5) /hpf Urine RBC (Auto) (0-4) /hpf U Hyaline Cast (Auto) (0-5) /lpf U Epithel Cells (Auto) (0-5) /lpf Urine Bacteria (Auto) (Negative) Salicylates < 3.0 L (3.0-30) mg/dl Urine Opiates Screen (Neg) Ur Methadone, Qual (Neg) Acetaminophen < 3 L (10-30) ug/ml Urine Barbiturates (Neg) Ur Phencyclidine (PCP) (Neg) U Amphetamin/Meth Scrn (Neg) MDMA (Ecstasy) Screen (Neg) U Benzodiazepines Scrn (Neg) Ur Cocaine Metabolite (Neg) U Marijuana (THC) Screen (Neg) Ethyl Alcohol mg/dL < 10.0 (<10.0) mg/dl SARS-CoV-2, RNA, NAAT NEGATIVE (NEGATIVE) Discharge Plan Visit Data Chief Complaint: Mental Health Evaluation Stated Complaint: SUICIDAL THOUGHTS ED Provider: Samuel Stephenson Discharge Problem: Suicidal ideations, Mood disorder, Leukocytosis Forms Stand Alone Forms: My [facility], Suicide Prevention Resources Prescriptions Prescriptions: No Action clopidogrel [Plavix] 75 mg tablet 75 mg PO QPM Qty: 90 1RF metformin 1,000 mg tablet 1,000 mg PO BID Qty: 180 1RF nitroglycerin 0.4 mg tablet, sublingual 0.4 mg sublingual Q5M PRN (Reason: chest pain) Qty: 20 2RF Rx Instructions: do not exceed 3 doses per episode Victoza 3-Isidro 0.6 mg/0.1 mL (18 mg/3 mL) pen injector 1.8 mg SQ DAILY Qty: 9 2RF metoprolol tartrate [Lopressor] 50 mg tablet 25 mg PO QPM Qty: 90 3RF atorvastatin 80 mg tablet 80 mg PO DAILY Qty: 90 2RF levothyroxine [Synthroid] 50 mcg tablet 50 mcg PO QAM Qty: 90 1RF (DME) compr.stocking,knee,long,large Misc See Rx Instructions .Route Qty: 12 0RF Rx Instructions: As directed (DME) compress.stocking,knee,reg,med Misc See Rx Instructions .ROUTE .MEDSUPPLY Qty: 2 0RF Rx Instructions: Medium compression 20-30mmHG; Dx: I87.2 losartan 25 mg tablet 25 mg PO DAILY Qty: 30 2RF Levemir FlexTouch U-100 Insuln 100 unit/mL (3 mL) insulin pen 80 unit SQ QPM Qty: 10 3RF diclofenac sodium 50 mg tablet,delayed release (DR/EC) 50 mg PO BID Qty: 60 1RF insulin aspart U-100 [Novolog Flexpen U-100 Insulin] 100 unit/mL (3 mL) insulin pen See Rx Instructions SQ .COMPLEX Rx Instructions: 10 units with BREAKFAST & LUNCH and 20 units with SUPPER PLUS SLIDING SCALE. Per patient. (DME) Auto Titrating CPAP Misc See Rx Instructions .Route Qty: 1 0RF Rx Instructions: As directed furosemide 20 mg tablet 40 mg PO DAILY lidocaine 5 % adhesive patch,medicated 1 patch transdermal QAM Qty: 7 0RF Label Comments: off at this time trazodone 150 mg tablet 150 mg PO HS PRN (Reason: Insomnia) Qty: 30 0RF (DME) Matthew Puente Misc See Rx Instructions .Route Qty: 4 3RF Rx Instructions: As directed lorazepam [Ativan] 0.5 mg tablet 0.5 mg PO TID PRN (Reason: anxiety) Qty: 9 0RF duloxetine [Cymbalta] 30 mg capsule,delayed release(DR/EC) 30 mg PO DAILY Qty: 30 2RF topiramate [Topamax] 25 mg tablet 25 mg PO BID Qty: 60 2RF albuterol sulfate 90 mcg/actuation HFA aerosol inhaler 2 puffs INH Q4H PRN (Reason: shortness of breath or wheezing) Qty: 8.5 0RF escitalopram oxalate 10 mg tablet 10 mg PO DAILY gabapentin 300 mg capsule 600 mg PO BID acetaminophen 325 mg Tablet 650 mg PO Q4H PRN (Reason: pain) Qty: 20 0RF Referrals Referrals: Swati Berger DO [Primary Care Provider] -
[2021-08-27 11:49] LABS: Basophils # (auto) 0.19 K/uL (0-0.2); Basophils % (auto) 1.2 %; Eosinophils # (auto) 0.16 K/uL (0-0.50); Hemoglobin 16.3 g/dl (12.0-16.0); Immature Granulocytes # (auto) 0.08 K/uL (0.00-0.02); Immature Granulocytes % (auto) 0.5 %; Lymphocytes # (auto) 3.61 K/uL (1.2-3.4); Lymphocytes % (auto) 23.5 %; Mean Corpuscular Hemoglobin 29.1 pg (25.0-34.0); Mean Corpuscular Hgb Conc 33.3 g/dL (32.0-36.0); Mean Corpuscular Volume 87.3 fL (80.0-100.0); Mean Platelet Volume 9.5 fL (9.4-12.3); Monocytes # (auto) 0.71 K/uL (0.24-0.82); Monocytes % (auto) 4.6 %; Neutrophils # (auto) 10.59 K/uL (1.4-6.5); Neutrophils % (auto) 69.2 %; Platelet Count 246 K/uL (130-400); RDW Coefficient of Variation 13.6 % (11.5-14.5); RDW Standard Deviation 43.8 fL (36.4-46.3); Red Blood Count 5.61 M/uL (3.93-5.22); White Blood Count 15.34 K/ul (4.8-10.8)
[2021-08-27 11:56] LABS: Appearance Urine Cloudy (Clear); Bacteria Urine Automated 4+ (Negative); Bilirubin Urine Negative (Negative); Blood Urine Negative (Negative); Color Urine Dark Yellow; Epithelial Cell Urine Auto >30 /lpf (0-5); Glucose Urine UA Negative (Negative); Ketones Urine Negative (Negative); Leukocyte Esterase Urine Negative (Negative); Nitrite Urine Positive (Negative); Protein Urine 2+ (Negative); RBC Urine Automated 0-4 /hpf (0-4); Specific Gravity Urine 1.018 (1.000-1.030); Urobilinogen Urine Negative (Negative)
[2021-08-27 12:15] LABS: Acetaminophen < 3 ug/ml (10-30); Salicylate < 3.0 mg/dl (3.0-30)
[2021-08-27 12:16] LABS: Albumin Globulin Ratio 1.3 (0.9-2); Albumin Level 4.4 gm/dl (3.4-5.0); BUN Creatinine Ratio 15.2 (10-20); Bilirubin,Total 0.8 mg/dl (0.2-1.0); Calcium 9.2 mg/dl (8.5-10.1); Creatinine Clr Calc Pharmacy 79.3 ml/min; Est GFR (African American) 80.7 ml/min; Est GFR (Non-African American) 69.6 ml/min; Globulin 3.5 gm/dl (2.5-4.0); Potassium 4.1 mmol/L (3.5-5.1); Total Protein 7.9 gm/dl (6.0-8.3)
[2021-08-27 12:26] LABS: Amphetamines+Metham, Urine Neg (Neg); Barbiturates, Urine Neg (Neg); Benzodiazepine, Urine Neg (Neg); Cocaine, Urine Neg (Neg); MDMA (Ecstacy), Urine Pos (Neg); Methadone, Urine Neg (Neg); Opiate, Urine Neg (Neg); Phencyclidine, Urine Neg (Neg)
[2021-08-27] MEDS ORDERED: ALBUTEROL HFA 8 GM INHALER INH PRN (14:30)
[2021-08-27] MEDS ORDERED: LORazepam 0.5 MG TAB PO PRN (14:30)
[2021-08-27] MEDS ORDERED: traZODone HCL 50 MG TAB PO ONE (14:36)
--- NOTE | 2021-08-27 14:39 | Emergency Department Note ---
ED Visit Note Date and Time: 08/27/21 @ 1440 Interval History: Sign out received from Dr. Stephenson who reviewed details of the encounter. Patient was pending mental health placement for voluntary admission due to SI. Summary: Patient was re-evaluated at 1945 and vital signs reviewed. Vital signs stable. Discussed with case management. Referrals are made however they are pending at this time. Patient is voluntary. Medications were ordered by Dr. Stephenson. Patient's case was signed out to Dr. Muller at the change of shift. Disposition: Pending. Total Time: Pending .
[2021-08-27] MEDS: metFORMIN HCL 500 MG TAB PO SCH (17:13)
[2021-08-27] MEDS ORDERED: ACETAMINOPHEN 500 MG TAB ONE (17:17)
[2021-08-27] MEDS: TOPIRAMATE 25 MG TAB PO SCH (20:48)
[2021-08-27] MEDS: GABAPENTIN 600 MG TAB PO SCH (20:50)
[2021-08-27] MEDS ORDERED: CLOPIDOGREL BISULFATE 75 MG TAB PO SCH (21:00)
[2021-08-27] MEDS ORDERED: traZODone HCL 50 MG TAB PO PRN (21:00)
[2021-08-27] MEDS ORDERED: DICLOFENAC SODIUM 75 MG TABCR PO SCH (21:00)
--- NOTE | 2021-08-27 23:14 | Emergency Department Note ---
ED Visit Note I received this patient at change of shift signout from Dr. Victoria. The patient is a 56-year-old female who presented to the emergency department for an evaluation of mental health issues. The patient was felt to be a good candidate for inpatient management. She was agreeable to this and was felt to be a good candidate for a 201 voluntary admission. The patient is suicidal with a plan. The patient was medically cleared and at this time bed search is underway. The patient was signed out to Dr Tracy at change of shift. Please see his note for further care and disposition. .
--- NOTE | 2021-08-28 03:28 | Emergency Department Note ---
ED Visit Note Patient was signed out to me at change of shift by Dr. Muller, pending ongoing bed search for suicidal ideations. Patient is currently voluntary under 201. Patient does have multiple medical comorbidities including type 2 diabetes, COPD, coronary artery disease with systolic heart failure. Bed search is ongoing, patient was declined initially here at 3 S. secondary to medical comorbidities. Patient was signed out to my colleague, Dr. Mcdonald, change of shift with bed search ongoing. Patient remained stable overnight without any acute interventions required on my part during my shift. .
[2021-08-28] MEDS ORDERED: LEVOTHYROXINE SODIUM 50 MCG TABLET PO SCH (06:30)
[2021-08-28] MEDS: DICLOFENAC SODIUM 25 MG TABDR PO SCH ×3 (08:02→21:06)
[2021-08-28] MEDS ORDERED: cephALEXin 500 MG CAP PO STA (08:23)
--- NOTE | 2021-08-28 08:28 | Emergency Department Note ---
ED Visit Note I received this patient in signout at the change of shift from Dr. Tracy pending mental health bed search and psychiatric consultation. The patient's urine culture is positive for gram-negative bacilli. She was given Keflex 500 mg by mouth. A psychiatric consultation was placed as it appears the patient will be held in the ED for some time on a voluntary basis for inpatient psychiatric placement. Start Time: 1045 08/27/2021 Reason: Patient with PMHx listed below underwent ED Observation for psychiatric bed placement due to ongoing medical concerns and the need for acute psychiatric care for suicidal ideation. Fam Hx: see below SocHx: See Below Assessment(s): 0900-patient is resting comfortably. Psychiatric consultation was ordered. Discussion with case management regarding plans for disposition and ongoing bed search. Urine culture is positive and patient was ordered Keflex 500 mg as above. She will require a 5-day course of treatment. Summary: This patient was evaluated by psychiatry and accepted to [facility] for inpatient care on a 201, voluntary admission. Disposition: 08/28/2021 at 1100 Total Time: 24 hours and 15 minutes. .
[2021-08-28] MEDS: metFORMIN HCL 500 MG TAB PO SCH ×2 (08:42→17:34)
[2021-08-28] MEDS: TOPIRAMATE 25 MG TAB PO SCH ×2 (08:43→21:04)
[2021-08-28] MEDS: GABAPENTIN 600 MG TAB PO SCH ×2 (08:43→21:05)
[2021-08-28] MEDS ORDERED: FUROSEMIDE 40 MG TAB PO SCH (09:00)
[2021-08-28] MEDS ORDERED: LOSARTAN POTASSIUM 50 MG TAB PO SCH (09:00)
[2021-08-28] MEDS ORDERED: ALUMINUM/MAGNESIUM SUSP 30 ML UDC PO PRN (10:53)
[2021-08-28] MEDS ORDERED: MAGNESIUM HYDROXIDE SUSP 30 ML UDC PO PRN (10:53)
[2021-08-28] MEDS ORDERED: BISMUTH SUBSALICYLATE LIQD 236 ML PO PRN (10:53)
[2021-08-28] MEDS ORDERED: SODIUM CHLORIDE 0.65% NA SOLN 45 ML (OCEAN) PRN (10:53)
[2021-08-28] MEDS ORDERED: hydrOXYzine HCl 25 MG TAB PO PRN ×2 (10:53)
[2021-08-28] MEDS ORDERED: ALBUTEROL HFA 8 GM INHALER INH PRN (10:55)
[2021-08-28] MEDS ORDERED: traZODone HCL 50 MG TAB PO PRN (10:59)
[2021-08-28] MEDS ORDERED: LORazepam 0.5 MG TAB PO PRN (10:59)
[2021-08-28] MEDS ORDERED: DULoxetine HCL 30 MG CAP PO ONE (14:10)
[2021-08-28] MEDS: ACETAMINOPHEN 325 MG TAB PO PRN (14:11)
[2021-08-28] MEDS ORDERED: PHARMACY GLYCEMIC MGMT CONSULT PRN (14:11)
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
--- NOTE | 2021-08-28 14:50 | Pharmacy Report ---
Pharmacy Glycemic Short Note 2 - Date of Service August 28, 2021 - Glycemic Short BSG Results (Last 24 hours): 08/27/21 08/28/21 08/28/21 22:30 08:39 14:04 POC Glucose 116 H 130 H 120 H OUTPATIENT ANTIDIABETIC REGIMEN: * Victoza 1.8 mg daily; Novolog 10 units BL, 20 units w/ supper, Metformin 1000 mg BIDM, Detemir 80 units * A1c pending ASSESSMENT: * Patient admitted to [facility]- BSGs during ED stay have been within goal ranges with metformin only. On previous visit patient required much less total daily insulin than outpatient regimen. Will continue metformin, hold victoza today, will give reduced doses of detemir and weight based stress of 2 insulin. Monitor for adjustments. PLAN FOR INPATIENT GLYCEMIC CONTROL: * Hold outpatient oral diabetes medications * Basal insulin * Detemir 10-20 units SQ per scale * Bolus insulin * NovoLog per scale ACHS or Q6hrs while NPO * Goal Range: Low 110 mg/dL - High 140 mg/dL * Correction Factor: 25 mg/dL/unit * Nutritional / Prandial insulin per carb ratio of 1 unit per 8 grams CHO consumed
[2021-08-28] MEDS ORDERED: DEXTROSE 50% 50 ML SYRINGE IV PRN (15:00)
[2021-08-28] MEDS ORDERED: GLUCOSE 40% GEL 15 GM TUBE PO PRN (15:00)
[2021-08-28] MEDS ORDERED: GLUCAGON FOR INJ 1 MG VIAL IM PRN (15:00)
[2021-08-28] MEDS ORDERED: CARBOHYDRATES FOR HYPOGLYCEMIA PO PRN (15:00)
[2021-08-28] MEDS ORDERED: GLUCOSE 10 TAB/TUBE PO PRN (15:00)
[2021-08-28] MEDS: INSULIN ASPART PER UNIT SC SCH ×2 (18:48→21:10)
[2021-08-28] MEDS: CLOPIDOGREL BISULFATE 75 MG TAB PO SCH (21:03)
[2021-08-28] MEDS: cephALEXin 500 MG CAP PO SCH (21:07)
[2021-08-28] MEDS ORDERED: INSULIN DETEMIR FLEXPEN/FLEX TOUCH 100 UNITS/ML 3ML SC ONE (22:00)
[2021-08-29] MEDS ORDERED: INSULIN ASPART PER UNIT SC SCH (02:00)
[2021-08-29] MEDS: cephALEXin 500 MG CAP PO SCH ×2 (08:50→20:35)
[2021-08-29] MEDS: LEVOTHYROXINE SODIUM 50 MCG TABLET PO SCH (08:50)
[2021-08-29] MEDS: DICLOFENAC SODIUM 25 MG TABDR PO SCH ×2 (08:50→20:35)
[2021-08-29] MEDS: GABAPENTIN 600 MG TAB PO SCH ×2 (08:51→20:35)
[2021-08-29] MEDS: FUROSEMIDE 40 MG TAB PO SCH (08:51)
[2021-08-29] MEDS: DULoxetine HCL 60 MG CAP PO SCH (08:51)
[2021-08-29] MEDS: LOSARTAN POTASSIUM 25 MG TAB PO SCH (08:51)
[2021-08-29] MEDS: TOPIRAMATE 25 MG TAB PO SCH ×2 (08:52→20:36)
[2021-08-29] MEDS: metFORMIN HCL 500 MG TAB PO SCH ×2 (08:52→17:12)
[2021-08-29] MEDS: INSULIN ASPART PER UNIT SC SCH ×4 (10:09→20:44)
[2021-08-29] MEDS: IBUPROFEN 600 MG TAB PO PRN (10:11)
[2021-08-29] MEDS ORDERED: clonazePAM 0.25 MG TAB PO STA (10:14)
[2021-08-29] MEDS: LIRAGLUTIDE PEN SQ SCH (10:24)
[2021-08-29 10:35] LABS: Estimated Average Glucose 163 mg/dl; Hemoglobin A1C 7.3 % (4.5-5.6)
--- NOTE | 2021-08-29 13:21 | Psychiatric Progress Note ---
Date of Service August 29, 2021 Impression / Recommendations Impression 56 yo female with hx of recurrent depression with anxiety, reported complex trauma history, presents with self-report of bipolar disorder but did well on Cymbalta alone for extended period of time. Reviewed that depression can also contribute to restlessness and irritability and timing perhaps coincided with Chantix though she doesn't necessarily contribute to that. Reviewed the risks of use of antidepressant alone in patients with bipolar II disorder and will gather collateral while monitoring for activation. (1) Depression with anxiety: (2) Diabetes mellitus, type 2: Plan 08/29/21: risks/benefits/alternatives reviewed re: trial of low dose Klonopin for severe anxiety/ruminations pending therapeutic benefit of Cymbalta. Patient made aware controlled substance, longer acting than Ativan, can increase risk of falls, shouldn't drive or operate machinery. Agreed to 0.25 mg BID with meals starting today. 08/28/21: The patient was admitted to the [facility] ([facility] mental health unit) on q15 min checks (behavioral with suicide precautions) for safety. The patient will participate in group, recreational, and milieu therapies and will be offered additional individual and family sessions as clinically appropriate. Risks/benefits/alternatives reviewed re: Cymbalta increase to 60 mg tomorrow. Diabetic pharmacy consult. Inventory Assets Strengths: resilient, loves family Needs: therapy, improve coping Suicide Risk Level Suicide Risk Level: High-Moderate (q15 min suicide checks) Risk Factors Assessment : Yes Do You Have Access To A Gun?: No Health Problems: Yes Mental Health Diagnoses: Yes Family History of Suicide: Yes Previous Psychiatric Hospitalization: No Protective Factors Assessment : Yes Responsible for Young Children: Yes (lives with 10 yo and 11 yo grandkids) Employed: Yes ([employer]) Supportive Family: Yes Interval History Identifying Information MARY BETH OLIVERA is a 56-year-old F who currently lives in [place], has a complex medical history, and was admitted on 08/28/21 10:53 on a 201 voluntary commitment several days after an aborted suicide attempt. Chief Complaint "I can't stop crying". Review of Systems Sleep Information Total Hours of Sleep: 8 Sleep Comments: pt on q-15 minute checks Meal Information Percent Meal Consumed - Breakfast: 50 Percent Meal Consumed - Dinner: 75 Subjective Subjective Patient was seen & assessed and interval progress reviewed with treatment team. Continues to be very emotional then apologies and guilty in that she has let everyone down and "doesn't deserve to be here." She feels guilty for her suicide attempt. She wasn't able to speak with her daughters yesterday out of shame/upset. doesn't feel that prn Ativan was helpful at home. Physical Exam Psychiatric Orientation: alert and oriented x 3 Apperance: appropriately dressed and appropriately groomed Eye Contact: good eye contact Motor Behavior: no abnormal motor movements Speech: normal rate/rhythm/volume of speech Affect: + depressed affect Mood: + depressed mood Thought Process: goal directed thought process Thought Content: reality based without delusions Suicidal Thoughts: denies suicidal intent (on unit); + reports suicidal thoughts and + reports suicidal plan (but cannot crash car here) Homicidal Thoughts: denies homicidal thoughts Hallucinations: no auditory hallucinations and no visual hallucinations Cognition: attention grossly intact and language grossly intact Estimated Intelligence: consistent with education level Insight: + limited insight Judgement: + limited judgement Vital Signs (Past 24 Hours) Last Vital Signs Temp 36.5 C 08/29/21 06:37 Pulse 75 08/29/21 06:38 Resp 16 08/29/21 06:37 BP 95/64 L 08/29/21 06:38 Pulse Ox 97 08/28/21 12:34 O2 Del Method 08/28/21 12:34 Results & Data ([facility]) Laboratory Results Laboratory Results - last 24 hr 08/28/21 08/28/21 08/28/21 14:04 17:15 20:56 POC Glucose 120 H 120 H 119 H Estimat Average Glucose Hemoglobin A1c 08/29/21 08/29/21 08/29/21 02:09 08:44 09:43 POC Glucose 115 H 119 H Estimat Average Glucose 163 Hemoglobin A1c 7.3 H 08/29/21 12:50 POC Glucose 75 Estimat Average Glucose Hemoglobin A1c Current Inpatient Medications Current Inpatient Medications: Current Inpatient Medications Acetaminophen (Acetaminophen 325 Mg Tab) 650 mg PO Q4H PRN PRN Reason: Headache or Minor Fever Stop: 09/27/21 10:52 Last Admin: 08/28/21 14:11 Dose: 650 mg Al Hydrox/Mg Hydrox/Simethicone (Aluminum/Magnesium Susp 30 Ml Udc) 30 ml PO Q4H PRN PRN Reason: GI Upset Stop: 09/27/21 10:52 Albuterol (Albuterol Hfa 8 Gm Inhaler) 2 puffs INH Q4 PRN PRN Reason: Wheezing Stop: 09/27/21 11:59 Bismuth Subsalicylate (Bismuth Subsalicylate Liqd 236 Ml) 15 ml PO PRN PRN PRN Reason: Loose Stool Stop: 09/27/21 10:52 Cephalexin HCl (Cephalexin 500 Mg Cap) 500 mg PO BID AKASH Stop: 09/01/21 21:01 Last Admin: 08/29/21 08:50 Dose: 500 mg Clonazepam (Clonazepam 0.25 Mg Tab) 0.25 mg PO BIDM ON LICENSE OF [facility] Stop: 09/28/21 17:44 Clopidogrel Bisulfate (Clopidogrel Bisulfate 75 Mg Tab) 75 mg PO HS ON LICENSE OF [facility] Stop: 09/27/21 20:59 Last Admin: 08/28/21 21:03 Dose: 75 mg Dextrose (Dextrose 50% 50 Ml Syringe) 25 - 50 ml IV UD PRN; Protocol PRN Reason: Hypoglycemia Protocol Stop: 09/27/21 14:59 Diclofenac Sodium (Diclofenac Sodium 25 Mg Tabdr) 50 mg PO BID ON LICENSE OF [facility] Stop: 09/27/21 20:59 Last Admin: 08/29/21 08:50 Dose: 50 mg Duloxetine HCl (Duloxetine Hcl 60 Mg Cap) 60 mg PO QAM ON LICENSE OF [facility] Stop: 09/28/21 08:59 Last Admin: 08/29/21 08:51 Dose: 60 mg Furosemide (Furosemide 40 Mg Tab) 40 mg PO QAM AKASH Stop: 09/28/21 08:59 Last Admin: 08/29/21 08:51 Dose: 40 mg Gabapentin (Gabapentin 600 Mg Tab) 600 mg PO BID AKASH Stop: 09/27/21 20:59 Last Admin: 08/29/21 08:51 Dose: 600 mg Glucagon (Glucagon For Inj 1 Mg Vial) 1 mg IM UD PRN; Protocol PRN Reason: Hypoglycemia Protocol Stop: 09/27/21 14:59 Glucose (Glucose 40% Gel 15 Gm Tube) 15 - 30 gm PO UD PRN; Protocol PRN Reason: Hypoglycemia Protocol Stop: 09/27/21 14:59 Glucose (Glucose 10 Tab/Tube) 4 - 8 tab PO UD PRN; Protocol PRN Reason: Hypoglycemia Protocol Stop: 09/27/21 14:59 Hydroxyzine HCl (Hydroxyzine Hcl 25 Mg Tab) 25 mg PO Q4H PRN PRN Reason: Anxiety Stop: 09/27/21 10:52 Ibuprofen (Ibuprofen 600 Mg Tab) 600 mg PO Q6H PRN PRN Reason: Pain Stop: 09/27/21 17:29 Last Admin: 08/29/21 10:11 Dose: 600 mg Insulin Aspart (Insulin Aspart Per Unit) 0 units SC ACHS ON [facility] OF [facility] Stop: 09/27/21 17:14 Last Admin: 08/29/21 10:09 Dose: 3 units Levothyroxine Sodium (Levothyroxine Sodium 50 Mcg Tablet) 50 mcg PO DAILYBB ON LICENSE OF [facility] Stop: 09/28/21 06:29 Last Admin: 08/29/21 08:50 Dose: 50 mcg Liraglutide (Liraglutide Pen) 1 each SQ QAM ON LICENSE OF [facility] Stop: 09/28/21 09:59 Last Admin: 08/29/21 10:24 Dose: 1 each Lorazepam (Lorazepam 0.5 Mg Tab) 0.5 mg PO TID PRN PRN Reason: Anxiety Stop: 09/27/21 10:58 Losartan Potassium (Losartan Potassium 25 Mg Tab) 25 mg PO QAM ON LICENSE OF [facility] Stop: 09/28/21 08:59 Last Admin: 08/29/21 08:51 Dose: 25 mg Magnesium Hydroxide (Magnesium Hydroxide Susp 30 Ml Udc) 30 ml PO DAILY PRN PRN Reason: Constipation Stop: 09/27/21 10:52 Metformin HCl (Metformin Hcl 500 Mg Tab) 1,000 mg PO BIDM ON LICENSE OF [facility] Stop: 09/27/21 16:59 Last Admin: 08/29/21 08:52 Dose: 1,000 mg Miscellaneous (Carbohydrates For Hypoglycemia ) 15 - 30 gm PO UD PRN PRN Reason: Hypoglycemia Treatment Stop: 09/27/21 14:59 Miscellaneous Information (Pharmacy Glycemic Mgmt Consult) 1 each N/A UD PRN PRN Reason: Consult Stop: 09/27/21 14:10 Sodium Chloride (Sodium Chloride 0.65% Na Soln 45 Ml ([place])) 1 - 2 sprays NA PRN PRN PRN Reason: Nasal Dryness/Congestion Stop: 09/27/21 10:52 Topiramate (Topiramate 25 Mg Tab) 25 mg PO BID ON [facility] OF [facility] Stop: 09/27/21 20:59 Last Admin: 08/29/21 08:52 Dose: 25 mg Trazodone HCl (Trazodone Hcl 50 Mg Tab) 150 mg PO HS ON LICENSE OF [facility] Stop: 09/28/21 21:59 Post Discharge Appointments Primary Care Physician Name Of Family Doctor: Dr. Berger
--- NOTE | 2021-08-29 14:07 | Pharmacy Report ---
Pharmacy Glycemic Short Note 2 - Date of Service August 29, 2021 - Glycemic Short BSG Results (Last 24 hours): 08/28/21 08/28/21 08/28/21 14:04 17:15 20:56 POC Glucose 120 H 120 H 119 H 08/29/21 08/29/21 08/29/21 02:09 08:44 12:50 POC Glucose 115 H 119 H 75 OUTPATIENT ANTIDIABETIC REGIMEN: * Victoza 1.8 mg daily; Novolog 10 units BL, 20 units w/ supper, Metformin 1000 mg BIDM, Detemir 80 units * A1c pending ASSESSMENT: 08/29 * Fasting this AM within goal range with 15 units of detemir, metformin 1000 mg BID * Prandial BSGs at goal range yesterday, lunch below goal, added patient's home victoza, will loosen carb ratio and adjust detemir scale 08/28 * Patient admitted to - BSGs during ED stay have been within goal ranges with metformin only. On previous visit patient required much less total daily insulin than outpatient regimen. Will continue metformin, hold victoza today, will give reduced doses of detemir and weight based stress of 2 insulin. Monitor for adjustments. PLAN FOR INPATIENT GLYCEMIC CONTROL: * Metformin 1000 mg BIDM; Victoza 1.8 mg qAM * Basal insulin * Detemir 15-25 units SQ per scale * Bolus insulin * NovoLog per scale ACHS or Q6hrs while NPO * Goal Range: Low 110 mg/dL - High 140 mg/dL * Correction Factor: 25 mg/dL/unit * Nutritional / Prandial insulin per carb ratio of 1 unit per 10 grams CHO consumed
[2021-08-29] MEDS: ACETAMINOPHEN 325 MG TAB PO PRN (15:01)
[2021-08-29] MEDS ORDERED: traMADol HCL 50 MG TABLET PO STA (17:02)
[2021-08-29] MEDS: clonazePAM 0.25 MG TAB PO SCH (17:11)
[2021-08-29] MEDS: CLOPIDOGREL BISULFATE 75 MG TAB PO SCH (20:36)
[2021-08-29] MEDS: traZODone HCL 50 MG TAB PO SCH (20:40)
[2021-08-29] MEDS ORDERED: INSULIN DETEMIR FLEXPEN/FLEX TOUCH 100 UNITS/ML 3ML SC ONE (22:00)
--- NOTE | 2021-08-30 07:57 | Psychiatric Progress Note ---
Date of Service August 30, 2021 Impression / Recommendations Impression 56 yo female with hx of recurrent depression with anxiety, reported complex trauma history, presents with self-report of bipolar disorder but did well on Cymbalta alone for extended period of time. Reviewed that depression can also contribute to restlessness and irritability and timing perhaps coincided with Chantix though she doesn't necessarily contribute to that. 08/30/21: treatment limited by migraine CUEVA, she relates similar to her baseline CUEVA and does not attribute to Cymbalta increase. (1) Depression with anxiety: (2) Diabetes mellitus, type 2: Plan 08/30/21: continue current meds and tx plan as migraine resolves. 08/29/21: risks/benefits/alternatives reviewed re: trial of low dose Klonopin for severe anxiety/ruminations pending therapeutic benefit of Cymbalta. Patient made aware controlled substance, longer acting than Ativan, can increase risk of falls, shouldn't drive or operate machinery. Agreed to 0.25 mg BID with meals starting today. 08/28/21: The patient was admitted to the [facility] on q15 min checks (behavioral with suicide precautions) for safety. The patient will participate in group, recreational, and milieu therapies and will be offered additional individual and family sessions as clinically appropriate. Risks/benefits/alternatives reviewed re: Cymbalta increase to 60 mg tomorrow. Diabetic pharmacy consult. Inventory Assets Strengths: resilient, loves family Needs: therapy, improve coping Suicide Risk Level Suicide Risk Level: High-Moderate (q15 min suicide checks) Risk Factors Assessment : Yes Do You Have Access To A Gun?: No Health Problems: Yes Mental Health Diagnoses: Yes Family History of Suicide: Yes Previous Psychiatric Hospitalization: No Protective Factors Assessment : Yes Responsible for Young Children: Yes (lives with 10 yo and 11 yo grandkids) Employed: Yes ([employer]) Supportive Family: Yes Interval History Identifying Information MARY BETH OLIVERA is a 56-year-old F who currently lives in [place], has a complex medical history, and was admitted on 08/28/21 10:53 on a 201 voluntary commitment several days after an aborted suicide attempt. Chief Complaint migraine CUEVA Review of Systems Sleep Information Total Hours of Sleep: 6.5 Sleep Comments: pt on q-15 minute checks Meal Information Percent Meal Consumed - Breakfast: 50 Percent Meal Consumed - Lunch: 50 Percent Meal Consumed - Dinner: 75 Subjective Subjective Patient was seen & assessed and interval progress reviewed with nursing and social work. Unable to truly assess anxiety as has been in room much of last night and this am due to migraine with photophobia, some response to Ultram but taking time to resolve. Appears less tearful/calmer in the milieu. Physical Exam Psychiatric Orientation: alert and oriented x 3 Eye Contact: + fair eye contact Motor Behavior: no abnormal motor movements Speech: normal rate/rhythm/volume of speech Affect: + depressed affect Mood: + depressed mood Thought Process: goal directed thought process Thought Content: reality based without delusions Suicidal Thoughts: denies suicidal plan and denies suicidal intent (on unit); + reports suicidal thoughts Homicidal Thoughts: denies homicidal thoughts Hallucinations: no auditory hallucinations and no visual hallucinations Cognition: attention grossly intact and language grossly intact Estimated Intelligence: consistent with education level Insight: + limited insight Judgement: + limited judgement Vital Signs (Past 24 Hours) Last Vital Signs Temp 36.8 C 08/30/21 06:41 Pulse 86 08/30/21 06:42 Resp 16 08/30/21 06:41 BP 93/61 L 08/30/21 06:42 Pulse Ox 97 08/28/21 12:34 O2 Del Method 08/28/21 12:34 Results & Data ([facility]) Laboratory Results Laboratory Results - last 24 hr 08/29/21 08/29/21 08/29/21 08:44 09:43 12:50 POC Glucose 119 H 75 Estimat Average Glucose 163 Hemoglobin A1c 7.3 H 08/29/21 08/29/21 08/29/21 14:56 17:05 20:33 POC Glucose 87 99 98 Estimat Average Glucose Hemoglobin A1c Current Inpatient Medications Current Inpatient Medications: Current Inpatient Medications Acetaminophen (Acetaminophen 325 Mg Tab) 650 mg PO Q4H PRN PRN Reason: Headache or Minor Fever Stop: 09/27/21 10:52 Last Admin: 08/29/21 15:01 Dose: 650 mg Al Hydrox/Mg Hydrox/Simethicone (Aluminum/Magnesium Susp 30 Ml Udc) 30 ml PO Q4H PRN PRN Reason: GI Upset Stop: 09/27/21 10:52 Albuterol (Albuterol Hfa 8 Gm Inhaler) 2 puffs INH Q4 PRN PRN Reason: Wheezing Stop: 09/27/21 11:59 Bismuth Subsalicylate (Bismuth Subsalicylate Liqd 236 Ml) 15 ml PO PRN PRN PRN Reason: Loose Stool Stop: 09/27/21 10:52 Cephalexin HCl (Cephalexin 500 Mg Cap) 500 mg PO BID AKASH Stop: 09/01/21 21:01 Last Admin: 08/29/21 20:35 Dose: 500 mg Clonazepam (Clonazepam 0.25 Mg Tab) 0.25 mg PO BIDM AKASH Stop: 09/28/21 17:44 Last Admin: 08/29/21 17:11 Dose: 0.25 mg Clopidogrel Bisulfate (Clopidogrel Bisulfate 75 Mg Tab) 75 mg PO HS AKASH Stop: 09/27/21 20:59 Last Admin: 08/29/21 20:36 Dose: 75 mg Dextrose (Dextrose 50% 50 Ml Syringe) 25 - 50 ml IV UD PRN; Protocol PRN Reason: Hypoglycemia Protocol Stop: 09/27/21 14:59 Diclofenac Sodium (Diclofenac Sodium 25 Mg Tabdr) 50 mg PO BID AKASH Stop: 09/27/21 20:59 Last Admin: 08/29/21 20:35 Dose: 50 mg Duloxetine HCl (Duloxetine Hcl 60 Mg Cap) 60 mg PO QAM AKASH Stop: 09/28/21 08:59 Last Admin: 08/29/21 08:51 Dose: 60 mg Furosemide (Furosemide 40 Mg Tab) 40 mg PO QAM AKASH Stop: 09/28/21 08:59 Last Admin: 08/29/21 08:51 Dose: 40 mg Gabapentin (Gabapentin 600 Mg Tab) 600 mg PO BID AKASH Stop: 09/27/21 20:59 Last Admin: 08/29/21 20:35 Dose: 600 mg Glucagon (Glucagon For Inj 1 Mg Vial) 1 mg IM UD PRN; Protocol PRN Reason: Hypoglycemia Protocol Stop: 09/27/21 14:59 Glucose (Glucose 40% Gel 15 Gm Tube) 15 - 30 gm PO UD PRN; Protocol PRN Reason: Hypoglycemia Protocol Stop: 09/27/21 14:59 Glucose (Glucose 10 Tab/Tube) 4 - 8 tab PO UD PRN; Protocol PRN Reason: Hypoglycemia Protocol Stop: 09/27/21 14:59 Hydroxyzine HCl (Hydroxyzine Hcl 25 Mg Tab) 25 mg PO Q4H PRN PRN Reason: Anxiety Stop: 09/27/21 10:52 Ibuprofen (Ibuprofen 600 Mg Tab) 600 mg PO Q6H PRN PRN Reason: Pain Stop: 09/27/21 17:29 Last Admin: 08/29/21 10:11 Dose: 600 mg Insulin Aspart (Insulin Aspart Per Unit) 0 units SC ACHS [facility] Stop: 09/27/21 17:14 Last Admin: 08/29/21 20:44 Dose: Not Given Levothyroxine Sodium (Levothyroxine Sodium 50 Mcg Tablet) 50 mcg PO DAILYBB [facility] Stop: 09/28/21 06:29 Last Admin: 08/29/21 08:50 Dose: 50 mcg Liraglutide (Liraglutide Pen) 1 each SQ QAM [facility] Stop: 09/28/21 09:59 Last Admin: 08/29/21 10:24 Dose: 1 each Losartan Potassium (Losartan Potassium 25 Mg Tab) 25 mg PO QAM [facility] Stop: 09/28/21 08:59 Last Admin: 08/29/21 08:51 Dose: 25 mg Magnesium Hydroxide (Magnesium Hydroxide Susp 30 Ml Udc) 30 ml PO DAILY PRN PRN Reason: Constipation Stop: 09/27/21 10:52 Metformin HCl (Metformin Hcl 500 Mg Tab) 1,000 mg PO BIDM [facility] Stop: 09/27/21 16:59 Last Admin: 08/29/21 17:12 Dose: 1,000 mg Miscellaneous (Carbohydrates For Hypoglycemia ) 15 - 30 gm PO UD PRN PRN Reason: Hypoglycemia Treatment Stop: 09/27/21 14:59 Miscellaneous Information (Pharmacy Glycemic Mgmt Consult) 1 each N/A UD PRN PRN Reason: Consult Stop: 09/27/21 14:10 Sodium Chloride (Sodium Chloride 0.65% Na Soln 45 Ml ([place])) 1 - 2 sprays NA PRN PRN PRN Reason: Nasal Dryness/Congestion Stop: 09/27/21 10:52 Topiramate (Topiramate 25 Mg Tab) 25 mg PO BID [facility] Stop: 09/27/21 20:59 Last Admin: 08/29/21 20:36 Dose: 25 mg Trazodone HCl (Trazodone Hcl 50 Mg Tab) 150 mg PO HS [facility] Stop: 09/28/21 21:59 Last Admin: 08/29/21 20:40 Dose: 150 mg Post Discharge Appointments Primary Care Physician Name Of Family Doctor: Dr. Berger
[2021-08-30] MEDS: TOPIRAMATE 25 MG TAB PO SCH ×2 (08:48→21:20)
[2021-08-30] MEDS: DULoxetine HCL 60 MG CAP PO SCH (08:49)
[2021-08-30] MEDS: LOSARTAN POTASSIUM 25 MG TAB PO SCH (08:49)
[2021-08-30] MEDS: FUROSEMIDE 40 MG TAB PO SCH (08:50)
[2021-08-30] MEDS: LEVOTHYROXINE SODIUM 50 MCG TABLET PO SCH (08:50)
[2021-08-30] MEDS: DICLOFENAC SODIUM 25 MG TABDR PO SCH ×2 (08:51→21:20)
[2021-08-30] MEDS: GABAPENTIN 600 MG TAB PO SCH ×2 (08:51→21:20)
[2021-08-30] MEDS: cephALEXin 500 MG CAP PO SCH ×2 (08:52→21:19)
[2021-08-30] MEDS: metFORMIN HCL 500 MG TAB PO SCH ×2 (08:52→18:27)
[2021-08-30] MEDS: INSULIN ASPART PER UNIT SC SCH ×4 (08:57→20:30)
[2021-08-30] MEDS: LIRAGLUTIDE PEN SQ SCH (09:00)
[2021-08-30] MEDS: clonazePAM 0.25 MG TAB PO SCH ×2 (09:01→18:27)
[2021-08-30] MEDS ORDERED: traMADol HCL 50 MG TABLET PO STA (10:29)
[2021-08-30] MEDS ORDERED: traMADol HCL 50 MG TABLET PO PRN (10:29)
--- NOTE | 2021-08-30 11:05 | Pharmacy Report ---
Pharmacy Glycemic Short Note 2 - Date of Service August 30, 2021 - Glycemic Short BSG Results (Last 24 hours): 08/29/21 08/29/21 08/29/21 12:50 14:56 17:05 POC Glucose 75 87 99 08/29/21 08/30/21 20:33 08:26 POC Glucose 98 92 OUTPATIENT ANTIDIABETIC REGIMEN: * Victoza 1.8 mg daily; Novolog 10 units BL, 20 units w/ supper, Metformin 1000 mg BIDM, Detemir 80 units * A1c pending ASSESSMENT: 08/30: * Sara received 22 units of SQ insulin yesterday ( 10 units Levemir, 12 units Novolog) in addition to metformin and liraglutide * Majority of BSGs were below goal over the past 24 hours. Novolog parameters were loosened yesterday. Will decrease basal insulin scale by 20%. 08/29 * Fasting this AM within goal range with 15 units of detemir, metformin 1000 mg BID * Prandial BSGs at goal range yesterday, lunch below goal, added patient's home victoza, will loosen carb ratio and adjust detemir scale 08/28 * Patient admitted to [facility]- BSGs during ED stay have been within goal ranges with metformin only. On previous visit patient required much less total daily insulin than outpatient regimen. Will continue metformin, hold victoza today, will give reduced doses of detemir and weight based stress of 2 insulin. Monitor for adjustments. PLAN FOR INPATIENT GLYCEMIC CONTROL: * Continue metformin 1000 mg BIDM; liraglutide 1.8 mg qAM * Basal insulin * Levemir SQ per scale qHS * 8 units for < 140, 12 units for 140-220, 15 units for > 220 mg/dL * Bolus insulin * NovoLog per scale ACHS or Q6hrs while NPO * Goal Range: Low 110 mg/dL - High 140 mg/dL * Correction Factor: 25 mg/dL/unit * Nutritional / Prandial insulin per carb ratio of 1 unit per 10 grams CHO consumed
[2021-08-30] MEDS: IBUPROFEN 600 MG TAB PO PRN (14:32)
[2021-08-30] MEDS: CLOPIDOGREL BISULFATE 75 MG TAB PO SCH (21:20)
[2021-08-30] MEDS: traZODone HCL 50 MG TAB PO SCH (21:24)
[2021-08-30] MEDS ORDERED: INSULIN DETEMIR FLEXPEN/FLEX TOUCH 100 UNITS/ML 3ML SC SCH (22:00)
[2021-08-31 08:55] LABS: MDA negative; MDEA negative; MDMA (Ecstasy) Urine, Confirm negative; Marijuana Quant, GCMS Urine 169 ng/mL (<5)
[2021-08-31] MEDS: INSULIN ASPART PER UNIT SC SCH (09:35)
[2021-08-31] MEDS: LIRAGLUTIDE PEN SQ SCH (09:50)
[2021-08-31] MEDS: cephALEXin 500 MG CAP PO SCH (10:10)
[2021-08-31] MEDS: LEVOTHYROXINE SODIUM 50 MCG TABLET PO SCH (10:11)
[2021-08-31] MEDS: metFORMIN HCL 500 MG TAB PO SCH (10:11)
[2021-08-31] MEDS: ACETAMINOPHEN 325 MG TAB PO PRN (10:12)
[2021-08-31] MEDS ORDERED: SODIUM CHLORIDE 0.9% 1000ML 2,000 ML IV ONE (10:12)
--- NOTE | 2021-08-31 10:54 | Discharge Summary ---
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 Discharge Order (Routine); Ordered 08/31/21 Ordered By: Selene Allan Admission Data Admit Date/Time: 08/28/21 10:53 Attending Provider: Selene Allan Admit Provider: Selene Allan Primary Care Provider: Swati Berger Other Interventions: Discharge Summary Assessment (RN) Last Done: 08/31/21 10:29 PSY Interdisciplinary Discharge Planning Last Done: 08/31/21 10:29 Coding Level of Care Code 61354 D/C day mgmt > 30 min Diagnoses Depression with anxiety F41.8 Diabetes mellitus, type 2 E11.9
--- NOTE | 2021-08-31 11:23 | History & Physical Report ---
Date of Service August 31, 2021 Assessment & Plan (1) Hypotension: Plan: 56yo Female with PMH Bipolar depression anxiety OCD, morbid obesity HTN HLD COPD DM2 MICHAEL on CPAP, hypothyroidism migraines CAD CHF MIx3 s/p stent originally here for counseling for SI, developed dizziness lightheadedness hypotension at 6am today. Noted slightly decreasing BP 08/29 6am 95/64. Hypotension -developed hypotension 08/01 at 6am 82/50 with lightheadedness dizziness better laying down with lights off, low 61/43, no LOC noted, no compensation per HR around 70 -this is hospital day 4, has been started on all listed medication -new meds: keflex started 08/28 BID klonipin replaced prn ativan at lower dose started 08/29 escitalopram switched to duloxetine on 08/21 ()Rule out allergy -patient describes similar reaction with sulfa allergy -denies any SOB rash CP abd pain, no similar reactions noted when initially taking keflex klonipin duloxetine -does not rule out medication adverse reaction, see below ()Medication noncompliance -suspected by team, patient is fragile, reports manages her medication herself without assistance but has severe mental health condition and current SI -given timing of new hypotension to starting medication, leaning more likely to med noncompliance -patient has confirmed restarted psych med since: Gabapentin since 08/28 Duloxetine 08/29 Topiramate 08/28 Trazadone 08/29 Tramadol 08/30 -patient has confirmed BP meds since: Furosemide 08/29 Losartan 08/29 -all above medication on hold ()HAN -likely 2/2 to hypotension -help BP and psych meds -ordered 2L NSS ()Sepsis rule out -WBC elevated since last year, today 17.44 - (2) Leukocytosis: (3) Mood disorder: (4) Suicidal ideations: (5) Type II diabetes mellitus, uncontrolled: (6) Chronic migraine: (7) Chronic kidney disease: (8) COPD (chronic obstructive pulmonary disease) with chronic bronchitis: (9) Dyslipidemia: (10) Heart failure, systolic, due to CAD: (11) Coronary artery disease: (12) Insomnia: (13) Hypothyroidism: (14) Severe obstructive sleep apnea-hypopnea syndrome: Admission and Anticipated Discharge Date Admission Date: August 28, 2021 History of Present Illness Chief Complaint: Hypotension Primary Care Provider: Swati Berger DO Allergies Allergy/AdvReac Type Severity Reaction Status Date / Time sulfamethoxazole Allergy Severe Went into Verified 08/21/21 11:23 [From Bactrim] Renal Failure trimethoprim [From Bactrim] Allergy Severe Went into Verified 08/21/21 11:23 Renal Failure Home Medications Medication Instructions Recorded Confirmed Type albuterol sulfate 90 mcg/actuation 2 puffs inhalation Q4H PRN 10/28/17 08/27/21 Rx aerosol inhaler shortness of breath or wheezing #8.5 grams clopidogrel 75 mg tablet (Plavix) 75 mg PO QPM #90 tabs 05/24/20 08/27/21 Rx nitroglycerin 0.4 mg sublingual 0.4 mg sublingual Q5M PRN chest 06/12/20 08/27/21 Rx tablet pain #20 tabs Victoza 3-Isidro 0.6 mg/0.1 mL (18 1.8 mg (0.3 mL) subcut DAILY #9 mL 10/17/20 08/27/21 Rx mg/3 mL) subcutaneous pen injector (liraglutide) gabapentin 300 mg capsule 600 mg PO BID 01/24/21 08/27/21 History acetaminophen 325 mg tablet 650 mg PO Q4H PRN pain #20 tabs 01/26/21 08/27/21 Rx atorvastatin 80 mg tablet 80 mg PO DAILY #90 tabs 04/18/21 08/27/21 Rx levothyroxine 50 mcg tablet 50 mcg PO QAM #90 tabs 04/20/21 08/27/21 Rx (Synthroid) furosemide 20 mg tablet 40 mg PO DAILY 05/23/21 08/27/21 History topiramate 25 mg tablet (Topamax) 25 mg PO BID #60 tabs 07/23/21 08/27/21 Rx diclofenac sodium 50 mg 50 mg PO BID #60 tabs 08/15/21 08/27/21 Rx tablet,delayed release Carbohydrates For Hypoglycemia 15 - 30 g PO UD #1 dose 08/31/21 Rx Pharmacy Glycemic Mgmt Consult 1 ea Not Applicable UD PRN type II 08/31/21 Rx [Consult Glycemic Management DM #1 unit Pharmacy] cephalexin 500 mg capsule 500 mg PO BID #1 cap 08/31/21 Rx dextrose 40 % oral gel (Glutose-15) 15 - 30 g PO UD PRN hypoglycemia 08/31/21 Rx #112.5 grams dextrose 50 % in water (D50W) 25 - 50 ml IV UD PRN hypoglycemia 08/31/21 Rx #500 mL duloxetine 60 mg capsule,delayed 60 mg PO QAM #1 cap 08/31/21 Rx release glucagon 1 mg/mL solution for 1 mg IM UD PRN hypoglycemia #1 ea 08/31/21 Rx injection (GlucaGen Diagnostic Kit) glucose 4 gram chewable tablet 16 g PO UD PRN hypoglycemia #1 tab 08/31/21 Rx (Dex4 Glucose) ibuprofen 600 mg tablet 600 mg PO Q6H PRN fever or pain #1 08/31/21 Rx tab insulin aspart U-100 100 unit/mL See Rx Instructions .Route 08/31/21 Rx subcutaneous solution (Novolog .COMPLEX #10 mL U-100 Insulin aspart) insulin detemir U-100 100 unit/mL See Rx Instructions .Route 08/31/21 Rx (3 mL) subcutaneous pen (Levemir .COMPLEX #3 mL FlexTouch U-100 Insulin) metformin 1,000 mg tablet 1,000 mg PO BIDM #180 tabs 08/31/21 08/27/21 Rx trazodone 50 mg tablet 150 mg PO HS #1 tab 08/31/21 Rx Past Med/Surg History Medical History Asthma rare use PRN inh Bipolar disorder Cellulitis of right upper extremity Chronic kidney disease COPD (chronic obstructive pulmonary disease) with chronic bronchitis Coronary artery disease Follows with [place] [facility] Depression with anxiety Diabetes mellitus, type 2 IDDM Diabetic peripheral neuropathy associated with type 2 diabetes mellitus Diabetic ulcer of left foot associated with type 2 diabetes mellitus, with fat layer exposed Dizziness Dyslipidemia Gastritis Glaucoma Heart failure, systolic, due to CAD History of colon polyps History of heart attack (2008) x3, 2009 and 2009, 2013 Hypertension Hypomagnesemia Hypotension Hypothyroidism Insomnia Lower extremity edema Marijuana abuse Marijuana use Migraine headache Nocturnal hypoxia Obsessive compulsive disorder On home oxygen therapy 4 LPM cont Posttraumatic stress disorder Restless legs syndrome Severe obstructive sleep apnea-hypopnea syndrome CPAP + 4 LPM O2 Tenosynovitis of hand Tobacco abuse Vitamin D deficiency Surgical History H/O heart artery stent x 3 H/O hernia repair (03/11/17) History of appendectomy History of x 2 History of cardiac catheterization 2008 - [place] - 2 stents 2009 [place] - 1 stent 2013 - [place] - angioplasty, no stents -- all caths done at [facility] in [place], [place] History of cataract surgery 11/30/20 R eye and 12/12/20 L eye History of cholecystectomy History of colonoscopy most recent 11/11/19 [place] History of esophagogastroduodenoscopy (EGD) most recent 11/11/19 [place] History of removal of cyst FINAL DIAGNOSIS Scalp, excision: - Heavily inflamed squamous cyst consistent with an epidermal cyst. In office procedure Dr. Trujillo 07/25/2021 Hx of cataract surgery S/P cardiac catheterization Dr. Roblero - March 2019 and April 2019. S/P dilation and curettage S/P hysterectomy secondary to endometriosis, tubes also removed. Ovaries retained S/P tonsillectomy Family History Father Diabetes Coronary heart disease Myocardial infarction Hypertension Mother Diabetes Coronary heart disease Hypertension Stroke Slow to wake up after anesthesia Brother Diabetes Grandmother (Maternal) Diabetes Myocardial infarction Hypertension Grandmother (Paternal) Coronary heart disease Aunt Breast cancer Uterine cancer Paternal Grandfather (Maternal) Colorectal cancer Uncle Colorectal cancer Family/Other Ovarian cancer Multiple cousins Denies family history of Prostate cancer Lung cancer Social History Smoking Status: Never smoker Tobacco Type: Cigarettes Age Started Using Tobacco: 11; Age Quit Using Tobacco: 55; packs per day: 0.5; Cigarettes Per Day: 1/2 pack; Second Hand Exposure: No; Hx Alcohol Use: No Hx Substance Use: Yes Prescribed Medications: Marijuana Last Used Substance: Days (ago) Last Used Substance Other:: yesterday Substance Use Type Other:: medical marijuana card Preferred Language: Setswana Communication Ability: Effective Visual Impairment: No Limitations Hearing Ability: Normal Home Health Physical Therapist Required: No Beliefs That Will Affect Care: None marital status: Current Living Situation: Spouse current occupational status: employed How many Children do You have: 2 Feels Safe at Home: Yes Childhood Exposure to Second-Hand Smoke: Yes Diet Comment: does not follow diet caffeine: Yes (ice tea) during the past year weight has: other Dental Care, Regularly: Yes Physical Activity Frequency: 1-2 Times per Week Physical Activity Frequency Comment: swimming Seatbelt Use: always Sunscreen Use: No Assistive Devices: None Results & Data Results & Data ([facility]) Vital Signs (Past 12 Hours) Vital Signs Temp Pulse Pulse Pulse Resp BP BP 08/31/21 10:29 36.5 C 77 69 72 16 81/52 L 61/30 L 08/31/21 09:20 69 72 81/52 L 61/30 L 08/31/21 09:15 74 105/66 08/31/21 09:00 98/60 L 96/58 L 08/31/21 08:00 70/50 L 08/31/21 06:56 61/43 L 08/31/21 06:56 72/47 L 08/31/21 06:36 75 66/43 L 08/31/21 06:36 36.5 C 69 16 82/50 L Pulse Ox 08/31/21 10:29 97 08/31/21 09:20 08/31/21 09:15 08/31/21 09:00 08/31/21 08:00 08/31/21 06:56 08/31/21 06:56 08/31/21 06:36 08/31/21 06:36 Diagnostic Findings Laboratory Results WBC 17.44 K/ul (4.8-10.8) H 08/31/21 09:16 RBC 5.02 M/uL (3.93-5.22) 08/31/21 09:16 Hgb 14.7 g/dl (12.0-16.0) 08/31/21 09:16 Hct 43.5 % (34.1-44.9) 08/31/21 09:16 MCV 86.7 fL (80.0-100.0) 08/31/21 09:16 MCH 29.3 pg (25.0-34.0) 08/31/21 09:16 MCHC 33.8 g/dL (32.0-36.0) 08/31/21 09:16 RDW Std Deviation 43.1 fL (36.4-46.3) 08/31/21 09:16 RDW Coeff of Caitlin 13.8 % (11.5-14.5) 08/31/21 09:16 Plt Count 242 K/uL (130-400) 08/31/21 09:16 MPV 10.1 fL (9.4-12.3) 08/31/21 09:16 Immature Gran % (Auto) 0.4 % 08/31/21 09:16 Neut % (Auto) 58.6 % 08/31/21 09:16 Lymph % (Auto) 31.2 % 08/31/21 09:16 [place] % (Auto) 7.7 % 08/31/21 09:16 Eos % (Auto) 1.1 % 08/31/21 09:16 Baso % (Auto) 1.0 % 08/31/21 09:16 Neut # (Auto) 10.22 K/uL (1.4-6.5) H 08/31/21 09:16 Lymph # (Auto) 5.44 K/uL (1.2-3.4) H 08/31/21 09:16 [place] # (Auto) 1.34 K/uL (0.24-0.82) H 08/31/21 09:16 Eos # (Auto) 0.19 K/uL (0-0.50) 08/31/21 09:16 Baso # (Auto) 0.18 K/uL (0-0.2) 08/31/21 09:16 Immature Gran # (Auto) 0.07 K/uL (0.00-0.02) H 08/31/21 09:16 Sodium 132 mmol/L (136-145) L 08/31/21 09:16 Potassium 3.6 mmol/L (3.5-5.1) 08/31/21 09:16 Chloride 94 mmol/L (98-107) L 08/31/21 09:16 Carbon Dioxide 23 mmol/L (21-32) 08/31/21 09:16 Anion Gap 15 (3-11) H 08/31/21 09:16 BUN 43 mg/dl (6-23) H 08/31/21 09:16 Creatinine 2.62 mg/dl (0.6-1.2) H 08/31/21 09:16 Est Cr Clr Drug Dosing 27.6 ml/min 08/31/21 09:16 Est GFR ( Amer) 22.8 ml/min 08/31/21 09:16 Est GFR (Non-Af Amer) 19.6 ml/min 08/31/21 09:16 BUN/Creatinine Ratio 16.4 (10-20) 08/31/21 09:16 Glucose 107 mg/dl (70-99(Fasting)) H 08/31/21 09:16 POC Glucose 111 mg/dl (70-99) H 08/31/21 08:07 Estimat Average Glucose 163 mg/dl 08/29/21 09:43 Hemoglobin A1c 7.3 % (4.5-5.6) H 08/29/21 09:43 Calcium 9.2 mg/dl (8.5-10.1) 08/31/21 09:16 Total Bilirubin 0.8 mg/dl (0.2-1.0) 08/27/21 11:40 AST 20 U/L (13-39) 08/27/21 11:40 ALT 9 U/L (7-52) 08/27/21 11:40 Alkaline Phosphatase 111 U/L (34-104) H 08/27/21 11:40 Total Protein 7.9 gm/dl (6.0-8.3) 08/27/21 11:40 Albumin 4.4 gm/dl (3.4-5.0) 08/27/21 11:40 Globulin 3.5 gm/dl (2.5-4.0) 08/27/21 11:40 Albumin/Globulin Ratio 1.3 (0.9-2) 08/27/21 11:40 TSH 2.212 uIu/ml (0.300-4.500) 08/27/21 11:40 Urine Color Dark Yellow 08/27/21 11:26 Urine Appearance Cloudy (Clear) A 08/27/21 11:26 Urine pH 5.0 (4.5-7.5) 08/27/21 11:26 Ur Specific [place] 1.018 (1.000-1.030) 08/27/21 11:26 Urine Protein 2+ (Negative) H 08/27/21 11:26 Urine Glucose (UA) Negative (Negative) 08/27/21 11:26 Urine Ketones Negative (Negative) 08/27/21 11:26 Urine Blood Negative (Negative) 08/27/21 11:26 Urine Nitrite Positive (Negative) A 08/27/21 11:26 Urine Bilirubin Negative (Negative) 08/27/21 11:26 Urine Urobilinogen Negative (Negative) 08/27/21 11:26 Ur Leukocyte Esterase Negative (Negative) 08/27/21 11:26 Urine WBC (Auto) 1-5 /hpf (0-5) 08/27/21 11:26 Urine RBC (Auto) 0-4 /hpf (0-4) 08/27/21 11:26 U Hyaline Cast (Auto) 1-5 /lpf (0-5) 08/27/21 11:26 U Epithel Cells (Auto) >30 /lpf (0-5) H 08/27/21 11:26 Urine Bacteria (Auto) 4+ (Negative) H 08/27/21 11:26 Salicylates < 3.0 mg/dl (3.0-30) L 08/27/21 11:40 Urine Opiates Screen Neg (Neg) 08/27/21 11:26 Ur Methadone, Qual Neg (Neg) 08/27/21 11:26 Acetaminophen < 3 ug/ml (10-30) L 08/27/21 11:40 Urine Barbiturates Neg (Neg) 08/27/21 11:26 Ur Phencyclidine (PCP) Neg (Neg) 08/27/21 11:26 U Amphetamin/Meth Scrn Neg (Neg) 08/27/21 11:26 Urine MDEA negative 08/27/21 11:26 MDMA (Ecstasy) Screen Pos (Neg) H 08/27/21 11:26 MDMA negative 08/27/21 11:26 Urine MDMA negative 08/27/21 11:26 U Benzodiazepines Scrn Neg (Neg) 08/27/21 11:26 Ur Cocaine Metabolite Neg (Neg) 08/27/21 11:26 U Marijuana (THC) Screen Pos (Neg) H 08/27/21 11:26 U Marijuana THC Carboxy 169 ng/mL (<5) H 08/27/21 11:26 Drug Screen Comment SEE NOTE 08/27/21 11:26 Ethyl Alcohol mg/dL < 10.0 mg/dl (<10.0) 08/27/21 11:40 SARS-CoV-2, RNA, NAAT NEGATIVE (NEGATIVE) 08/27/21 11:45 Medications Administered Current Inpatient Medications Acetaminophen (Acetaminophen 325 Mg Tab) 650 mg PO Q4H PRN PRN Reason: Headache or Minor Fever Stop: 09/27/21 10:52 Last Admin: 08/31/21 10:12 Dose: 650 mg Al Hydrox/Mg Hydrox/Simethicone (Aluminum/Magnesium Susp 30 Ml Udc) 30 ml PO Q4H PRN PRN Reason: GI Upset Stop: 09/27/21 10:52 Albuterol (Albuterol Hfa 8 Gm Inhaler) 2 puffs INH Q4 PRN PRN Reason: Wheezing Stop: 09/27/21 11:59 Bismuth Subsalicylate (Bismuth Subsalicylate Liqd 236 Ml) 15 ml PO PRN PRN PRN Reason: Loose Stool Stop: 09/27/21 10:52 Cephalexin HCl (Cephalexin 500 Mg Cap) 500 mg PO BID AKASH Stop: 09/01/21 21:01 Last Admin: 08/30/21 21:19 Dose: 500 mg Clonazepam (Clonazepam 0.25 Mg Tab) 0.25 mg PO BIDM AKASH Stop: 09/28/21 17:44 Last Admin: 08/30/21 18:27 Dose: 0.25 mg Clopidogrel Bisulfate (Clopidogrel Bisulfate 75 Mg Tab) 75 mg PO HS AKASH Stop: 09/27/21 20:59 Last Admin: 08/30/21 21:20 Dose: 75 mg Dextrose (Dextrose 50% 50 Ml Syringe) 25 - 50 ml IV UD PRN; Protocol PRN Reason: Hypoglycemia Protocol Stop: 09/27/21 14:59 Diclofenac Sodium (Diclofenac Sodium 25 Mg Tabdr) 50 mg PO BID AKASH Stop: 09/27/21 20:59 Last Admin: 08/30/21 21:20 Dose: 50 mg Duloxetine HCl (Duloxetine Hcl 60 Mg Cap) 60 mg PO QAM AKASH Stop: 09/28/21 08:59 Last Admin: 08/30/21 08:49 Dose: 60 mg Furosemide (Furosemide 40 Mg Tab) 40 mg PO QAM AKASH Stop: 09/28/21 08:59 Last Admin: 08/30/21 08:50 Dose: 40 mg Gabapentin (Gabapentin 600 Mg Tab) 600 mg PO BID AKASH Stop: 09/27/21 20:59 Last Admin: 08/30/21 21:20 Dose: 600 mg Glucagon (Glucagon For Inj 1 Mg Vial) 1 mg IM UD PRN; Protocol PRN Reason: Hypoglycemia Protocol Stop: 09/27/21 14:59 Glucose (Glucose 40% Gel 15 Gm Tube) 15 - 30 gm PO UD PRN; Protocol PRN Reason: Hypoglycemia Protocol Stop: 09/27/21 14:59 Glucose (Glucose 10 Tab/Tube) 4 - 8 tab PO UD PRN; Protocol PRN Reason: Hypoglycemia Protocol Stop: 09/27/21 14:59 Hydroxyzine HCl (Hydroxyzine Hcl 25 Mg Tab) 25 mg PO Q4H PRN PRN Reason: Anxiety Stop: 09/27/21 10:52 Sodium Chloride (Nss 1000ml) 2,000 mls @ 999 mls/hr IV .Q2H1M ONE Stop: 08/31/21 12:12 Ibuprofen (Ibuprofen 600 Mg Tab) 600 mg PO Q6H PRN PRN Reason: Pain Stop: 09/27/21 17:29 Last Admin: 08/30/21 14:32 Dose: 600 mg Insulin Aspart (Insulin Aspart Per Unit) 0 units SC ACHS [facility] Stop: 09/27/21 17:14 Last Admin: 08/31/21 09:35 Dose: 5 units Insulin Detemir (Insulin Detemir Flexpen/Flex Touch 100 Units/Ml 3ml) 0 units SC HS AKASH; Protocol Stop: 09/29/21 21:59 Last Admin: 08/30/21 21:22 Dose: 8 units Levothyroxine Sodium (Levothyroxine Sodium 50 Mcg Tablet) 50 mcg PO DAILYBB [facility] Stop: 09/28/21 06:29 Last Admin: 08/31/21 10:11 Dose: 50 mcg Liraglutide (Liraglutide Pen) 1 each SQ QAM [facility] Stop: 09/28/21 09:59 Last Admin: 08/31/21 09:50 Dose: 1 each Losartan Potassium (Losartan Potassium 25 Mg Tab) 25 mg PO QAM [facility] Stop: 09/28/21 08:59 Last Admin: 08/30/21 08:49 Dose: 25 mg Magnesium Hydroxide (Magnesium Hydroxide Susp 30 Ml Udc) 30 ml PO DAILY PRN PRN Reason: Constipation Stop: 09/27/21 10:52 Metformin HCl (Metformin Hcl 500 Mg Tab) 1,000 mg PO BIDM [facility] Stop: 09/27/21 16:59 Last Admin: 08/31/21 10:11 Dose: 1,000 mg Miscellaneous (Carbohydrates For Hypoglycemia ) 15 - 30 gm PO UD PRN PRN Reason: Hypoglycemia Treatment Stop: 09/27/21 14:59 Miscellaneous Information (Pharmacy Glycemic Mgmt Consult) 1 each N/A UD PRN PRN Reason: Consult Stop: 09/27/21 14:10 Sodium Chloride (Sodium Chloride 0.65% Na Soln 45 Ml ([place])) 1 - 2 sprays NA PRN PRN PRN Reason: Nasal Dryness/Congestion Stop: 09/27/21 10:52 Topiramate (Topiramate 25 Mg Tab) 25 mg PO BID AKASH Stop: 09/27/21 20:59 Last Admin: 08/30/21 21:20 Dose: 25 mg Tramadol HCl (Tramadol Hcl 50 Mg Tablet) 50 mg PO Q6 PRN PRN Reason: Pain Stop: 09/29/21 10:28 Last Admin: 08/30/21 18:31 Dose: 50 mg Trazodone HCl (Trazodone Hcl 50 Mg Tab) 150 mg PO HS AKASH Stop: 09/28/21 21:59 Last Admin: 08/30/21 21:24 Dose: 150 mg Code Status & VTE Plan VTE Prophylaxis Plan VTE Prophylaxis will be ordered: Yes
--- NOTE | 2021-08-31 13:46 | Electrocardiogram Report ---
Test Reason : Blood Pressure : / mmHG Vent. Rate : 070 BPM Atrial Rate : 070 BPM P-R Int : 144 ms QRS Dur : 096 ms QT Int : 434 ms P-R-T Axes : 054 067 056 degrees QTc Int : 468 ms Poor data quality, interpretation may be adversely affected Normal sinus rhythm Normal ECG When compared with ECG of 27-FEB-2021 15:35, Nonspecific T wave abnormality no longer evident in Lateral leads Confirmed by Luis Akers ([id number]) on 08/31/2021 1:46:18 PM Referred By: REFERRED SELF Confirmed By:Luis Akers
== END 2021-08-31 11:40 | disposition home or self-care (01) | DRG 880 ==
LOC: ED 10:40 → 3S 08-28 10:53

== ENCOUNTER 2021-08-31 09:55 | Observation (INO) ==
[2021-08-31 09:31] LABS: Hematocrit (blood only) 43.5 % (34.1-44.9); Hemoglobin 14.7 g/dl (12.0-16.0); Mean Corpuscular Hemoglobin 29.3 pg (25.0-34.0); Mean Corpuscular Hgb Conc 33.8 g/dL (32.0-36.0); Mean Corpuscular Volume 86.7 fL (80.0-100.0); Mean Platelet Volume 10.1 fL (9.4-12.3); Platelet Count 242 K/uL (130-400); RDW Coefficient of Variation 13.8 % (11.5-14.5); RDW Standard Deviation 43.1 fL (36.4-46.3); Red Blood Count 5.02 M/uL (3.93-5.22); White Blood Count 17.44 K/ul (4.8-10.8)
[2021-08-31 10:07] LABS: BUN Creatinine Ratio 16.4 (10-20); Calcium 9.2 mg/dl (8.5-10.1); Creatinine Clr Calc Pharmacy 27.6 ml/min; Est GFR (African American) 22.8 ml/min; Est GFR (Non-African American) 19.6 ml/min; Potassium 3.6 mmol/L (3.5-5.1)
[2021-08-31 10:11] LABS: Basophils # (auto) 0.18 K/uL (0-0.2); Eosinophils # (auto) 0.19 K/uL (0-0.50); Eosinophils % (auto) 1.1 %; Immature Granulocytes # (auto) 0.07 K/uL (0.00-0.02); Immature Granulocytes % (auto) 0.4 %; Lymphocytes # (auto) 5.44 K/uL (1.2-3.4); Lymphocytes % (auto) 31.2 %; Monocytes # (auto) 1.34 K/uL (0.24-0.82); Monocytes % (auto) 7.7 %; Neutrophils # (auto) 10.22 K/uL (1.4-6.5); Neutrophils % (auto) 58.6 %
[2021-08-31] MEDS ORDERED: SODIUM CHLORIDE 0.9% 1000ML 1,000 ML IV ONE ×2 (11:55→14:41)
--- NOTE | 2021-08-31 12:07 | History & Physical Report ---
Date of Service August 31, 2021 Assessment & Plan (1) Hypotension: Plan: 56yo Female with PMH Bipolar depression anxiety OCD, morbid obesity HTN HLD COPD DM2 MICHAEL on CPAP, hypothyroidism migraines CAD CHF MIx3 s/p stent originally here for counseling for SI, developed dizziness lightheadedness hypotension at 6am today. Noted slightly decreasing BP 08/29 6am 95/64. Hypotension -developed hypotension 08/01 at 6am 82/50 with lightheadedness dizziness better laying down with lights off, low 61/43, no LOC noted, no compensation per HR around 70 -this is hospital day 4, has been started on all listed medication -new meds: keflex started 08/28 BID klonipin replaced prn ativan at lower dose started 08/29 escitalopram switched to duloxetine on 08/21 -Rule out allergy: patient describes similar reaction with sulfa allergy, denies any SOB rash CP abd pain, no similar reactions noted when initially taking keflex klonipin duloxetine -Likely Medication noncompliance: suspected by team, patient is fragile, reports manages her medication herself without assistance but has severe mental health condition and current SI given timing of new hypotension to starting medication, leaning more likely to med noncompliance Gabapentin since 08/28 Duloxetine 08/29 Topiramate 08/28 Trazadone 08/29 Tramadol 08/30 Furosemide 08/29 Losartan 08/29 -BP meds, trazadone, tramadol on hold given BP -BP improved with fluids ()HAN -likely 2/2 to hypotension -help BP meds -withold nephrotoxic meds for now -Gabapentin Topiramate and duloxetine adjusted given CrCl 29 -ordered 2L NSS ()Sepsis rule out -WBC elevated since 4 years, today 17.44 -Peripheral smear unremarkable, consider Heme consult outpatient -bcx pending ()Mood Disorder -may continue Gabapentin Duloxetine Topiramate at renal dosage, can adjust to home dose once HAN resolved ()Hypothyroidism -cont levothyroxine ()MICHAEL -Hs CPAP ()HLD -continue atorvastatin ()HTN -metoprolol losartan lasix on hold ()CAD -continue Plavix ()Migraines/headache -continue topiramate -given sumatriptan SQ, tylenol -if symptoms persist may resume tramadol if needed ()DM2 -SSI -Glycemic consult placed ()Asthma -cont inhaler as needed ()Bacteruia -asymptomatic, ordered repeat UA and Ucx -chronically elevated WBC -dc'd keflex FENa: regular Code Status: Full DVT PPX: SCDs Case Management: pending Dispo: to return to [facility] once stable Herlinda Rabago Do PGY 2, FCM (2) Suicidal ideations: (3) Mood disorder: (4) Leukocytosis: (5) Chronic migraine: (6) Type II diabetes mellitus, uncontrolled: (7) Morbid obesity: (8) COPD (chronic obstructive pulmonary disease) with chronic bronchitis: (9) Chronic kidney disease: (10) Dyslipidemia: (11) Diabetes mellitus, type 2: (12) Insomnia: (13) Heart failure, systolic, due to CAD: (14) Hypertension: (15) Hypothyroidism: (16) Severe obstructive sleep apnea-hypopnea syndrome: Admission and Anticipated Discharge Date Admission Date: August 31, 2021 History of Present Illness Chief Complaint: Hypotension HAN Primary Care Provider: Swati Berger DO 56yo Female with PMH Bipolar depression anxiety OCD, morbid obesity HTN HLD COPD DM2 MICHAEL on CPAP, hypothyroidism migraines CAD CHF MIx3 s/p stent originally here for counseling for SI, developed dizziness lightheadedness hypotension at 6am today. Noted slightly decreasing BP 7/20 6am 95/64. [facility] with SI. Today consult was placed to Hospitalist jose david spears for new onset hypotension with headache/lightheadedness/dizziness. Patient denied any rashes SOB fever chills CP abd pain at that time, states her symptoms were worse with sitting up. She described similar symptoms when she had her allergy to sulfa drugs. Per patient only new medication was Keflex started 3 days ago for presumed UTI. Patient denies urinary pain bleeding or urgency at this time. Tested orthstatic vitals in room, postive test. Per chart review patient was switched from Ativan PRN to BID klonipin in hospital, was switched from Lexapro to Duloxetine 1 week ago. Per assessment by patient was unlikely to have been compliant with her medications at home especially given her psychiatric condition, all medications were resumed 3 days ago. Noted BP has begun to decrease per chart review 3 days ago. No noted increase in heart rate with change in BP. Pulses intact in room breathing well on room arm extremities warm. Ordered CBC BMP Procal CRP ESR peripheral blood smear EKG echo. EKG unremarkable, persistent elevated WBC for 4 years that patient was unaware of, new HAN found compared to 4 days ago. Patient was given 2L fluids with slight improvement of symptoms, states headache felt closer to her usual migraine, requested pain medication. Patient agreed to try sumatriptan for migraine. Patient understands her symptoms may be in part due to restarting her BP meds, they will be held at this time. Patient understands the fluids are to treat her HAN. Patient to be transfered back to [facility] when stable. Allergies Allergy/AdvReac Type Severity Reaction Status Date / Time sulfamethoxazole Allergy Severe Went into Verified 08/21/21 11:23 [From Bactrim] Renal Failure trimethoprim [From Bactrim] Allergy Severe Went into Verified 08/21/21 11:23 Renal Failure Home Medications Medication Instructions Recorded Confirmed Type albuterol sulfate 90 mcg/actuation 2 puffs inhalation Q4H PRN 10/28/17 08/27/21 Rx aerosol inhaler shortness of breath or wheezing #8.5 grams clopidogrel 75 mg tablet (Plavix) 75 mg PO QPM #90 tabs 05/24/20 08/27/21 Rx nitroglycerin 0.4 mg sublingual 0.4 mg sublingual Q5M PRN chest 06/12/20 08/27/21 Rx tablet pain #20 tabs Victoza 3-Isidro 0.6 mg/0.1 mL (18 1.8 mg (0.3 mL) subcut DAILY #9 mL 10/17/20 08/27/21 Rx mg/3 mL) subcutaneous pen injector (liraglutide) gabapentin 300 mg capsule 600 mg PO BID 01/24/21 08/27/21 History acetaminophen 325 mg tablet 650 mg PO Q4H PRN pain #20 tabs 01/26/21 08/27/21 Rx atorvastatin 80 mg tablet 80 mg PO DAILY #90 tabs 04/18/21 08/27/21 Rx levothyroxine 50 mcg tablet 50 mcg PO QAM #90 tabs 04/20/21 08/27/21 Rx (Synthroid) furosemide 20 mg tablet 40 mg PO DAILY 05/23/21 08/27/21 History topiramate 25 mg tablet (Topamax) 25 mg PO BID #60 tabs 07/23/21 08/27/21 Rx diclofenac sodium 50 mg 50 mg PO BID #60 tabs 08/15/21 08/27/21 Rx tablet,delayed release Carbohydrates For Hypoglycemia 15 - 30 g PO UD #1 dose 08/31/21 Rx Pharmacy Glycemic Mgmt Consult 1 ea Not Applicable UD PRN type II 08/31/21 Rx [Consult Glycemic Management DM #1 unit Pharmacy] cephalexin 500 mg capsule 500 mg PO BID #1 cap 08/31/21 Rx dextrose 40 % oral gel (Glutose-15) 15 - 30 g PO UD PRN hypoglycemia 08/31/21 Rx #112.5 grams dextrose 50 % in water (D50W) 25 - 50 ml IV UD PRN hypoglycemia 08/31/21 Rx #500 mL duloxetine 60 mg capsule,delayed 60 mg PO QAM #1 cap 08/31/21 Rx release glucagon 1 mg/mL solution for 1 mg IM UD PRN hypoglycemia #1 ea 08/31/21 Rx injection (GlucaGen Diagnostic Kit) glucose 4 gram chewable tablet 16 g PO UD PRN hypoglycemia #1 tab 08/31/21 Rx (Dex4 Glucose) ibuprofen 600 mg tablet 600 mg PO Q6H PRN fever or pain #1 08/31/21 Rx tab insulin aspart U-100 100 unit/mL See Rx Instructions .Route 08/31/21 Rx subcutaneous solution (Novolog .COMPLEX #10 mL U-100 Insulin aspart) insulin detemir U-100 100 unit/mL See Rx Instructions .Route 08/31/21 Rx (3 mL) subcutaneous pen (Levemir .COMPLEX #3 mL FlexTouch U-100 Insulin) metformin 1,000 mg tablet 1,000 mg PO BIDM #180 tabs 08/31/21 08/27/21 Rx trazodone 50 mg tablet 150 mg PO HS #1 tab 08/31/21 Rx Past Med/Surg History Medical History Asthma rare use PRN inh Bipolar disorder Cellulitis of right upper extremity Chronic kidney disease COPD (chronic obstructive pulmonary disease) with chronic bronchitis Coronary artery disease Follows with [facility] Depression with anxiety Diabetes mellitus, type 2 IDDM Diabetic peripheral neuropathy associated with type 2 diabetes mellitus Diabetic ulcer of left foot associated with type 2 diabetes mellitus, with fat layer exposed Dizziness Dyslipidemia Gastritis Glaucoma Heart failure, systolic, due to CAD History of colon polyps History of heart attack (2009) x3, 2009 and 2013 Hypertension Hypomagnesemia Hypotension Hypothyroidism Insomnia Lower extremity edema Marijuana abuse Marijuana use Migraine headache Nocturnal hypoxia Obsessive compulsive disorder On home oxygen therapy 4 LPM cont Posttraumatic stress disorder Restless legs syndrome Severe obstructive sleep apnea-hypopnea syndrome CPAP + 4 LPM O2 Tenosynovitis of hand Tobacco abuse Vitamin D deficiency Surgical History H/O heart artery stent x 3 H/O hernia repair (03/11/17) History of appendectomy History of x 2 History of cardiac catheterization 2008 - [place] - 2 stents 2009 - [place] - 1 stent 2013 - CHF - angioplasty, no stents -- all caths done at [facility] in [place], [place] History of cataract surgery 11/30/20 R eye and 12/12/20 L eye History of cholecystectomy History of colonoscopy most recent 11/11/19 [facility] History of esophagogastroduodenoscopy (EGD) most recent 11/11/19 [facility] History of removal of cyst FINAL DIAGNOSIS Scalp, excision: - Heavily inflamed squamous cyst consistent with an epidermal cyst. In office procedure Dr. Trujillo 07/25/2021 Hx of cataract surgery S/P cardiac catheterization Dr. Roblero - March 2019 and April 2019. S/P dilation and curettage S/P hysterectomy secondary to endometriosis, tubes also removed. Ovaries retained S/P tonsillectomy Family History Father Diabetes Coronary heart disease Myocardial infarction Hypertension Mother Diabetes Coronary heart disease Hypertension Stroke Slow to wake up after anesthesia Brother Diabetes Grandmother (Maternal) Diabetes Myocardial infarction Hypertension Grandmother (Paternal) Coronary heart disease Aunt Breast cancer Uterine cancer Paternal Grandfather (Maternal) Colorectal cancer Uncle Colorectal cancer Family/Other Ovarian cancer Multiple cousins Denies family history of Prostate cancer Lung cancer Social History Smoking Status: Former smoker Tobacco Type: Cigarettes Age Started Using Tobacco: 11; Age Quit Using Tobacco: 55; packs per day: 0.5; Cigarettes Per Day: 1/2 pack; Second Hand Exposure: No; Hx Alcohol Use: No Hx Substance Use: Yes Prescribed Medications: Marijuana Last Used Substance: Days (ago) Last Used Substance Other:: yesterday Substance Use Type Other:: medical marijuana card Preferred Language: Sinhala Communication Ability: Effective Visual Impairment: No Limitations Hearing Ability: Normal Digital Performance Analyst Required: No Beliefs That Will Affect Care: None marital status: Current Living Situation: Spouse and Family Current Living Situation Comment: house; 2 story current occupational status: employed How many Children do You have: 2 Other Information That Helps Us Care for You: No Feels Safe at Home: Yes Safety Concerns: Feels Safe At This Time Childhood Exposure to Second-Hand Smoke: Yes Diet Comment: does not follow diet caffeine: Yes (ice tea) during the past year weight has: other Dental Care, Regularly: Yes Physical Activity Frequency: 1-2 Times per Week Physical Activity Frequency Comment: swimming Seatbelt Use: always Sunscreen Use: No Assistive Devices: Glasses Assistive Devices Comment: reading glasses Review of Systems Review of Systems: Postiive headache lightheadedness dizziness Negative fever chills Negative chest pain palpitations SOB Negative nausea vomitting diarrhea constipation Negative numbness tingling rash swelling Physical Exam Constitutional: well developed, well nourished, + morbidly obese, cooperative and + in distress Eyes: PERRL, conjunctivae normal, anicteric sclerae ENMT: external ear and nose normal, oropharynx normal Neck: trachea midline, no thyromegaly Respiratory: normal respiratory effort, lungs clear to auscultation Cardiovascular: Rate/Rhythm: regular rate and regular rhythm Extremities: + edema (trace b/l) Chest (Breasts): Chest: normal inspection of chest Gastrointestinal (Abdomen): normal bowel sounds, soft, nontender, no hepatosplenomegaly Skin: no rashes, warm and dry Results & Data Results & Data ([facility]) Vital Signs (Past 12 Hours) Vital Signs Temp Pulse Resp BP Pulse Ox O2 Del Method 08/31/21 16:06 70 16 99/63 L 95 Room Air 08/31/21 14:47 Room Air 08/31/21 14:05 36.3 C L 73 18 93/61 L 92 Room Air 08/31/21 12:22 36.4 C L 74 16 96/64 L 93 Room Air Intake and Output 08/31/21 08/31/21 08/31/21 06:59 14:59 22:59 Intake Total 999 Balance 999 Intake: IV 999 Sodium Chloride 0.9% 1000ML 1, 999 000 ml @ 999 mls/hr IV .Q1H1M ONE Rx#:[id number] Other: Weight 104 kg Weight Measurement Method Standing Scale Patient Weight 09/01/21 06:59 Weight 104 kg Diagnostic Findings Laboratory Results WBC 17.44 K/ul (4.8-10.8) H 08/31/21 09:16 RBC 5.02 M/uL (3.93-5.22) 08/31/21 09:16 Hgb 14.7 g/dl (12.0-16.0) 08/31/21 09:16 Hct 43.5 % (34.1-44.9) 08/31/21 09:16 MCV 86.7 fL (80.0-100.0) 08/31/21 09:16 MCH 29.3 pg (25.0-34.0) 08/31/21 09:16 MCHC 33.8 g/dL (32.0-36.0) 08/31/21 09:16 RDW Std Deviation 43.1 fL (36.4-46.3) 08/31/21 09:16 RDW Coeff of Caitlin 13.8 % (11.5-14.5) 08/31/21 09:16 Plt Count 242 K/uL (130-400) 08/31/21 09:16 MPV 10.1 fL (9.4-12.3) 08/31/21 09:16 Immature Gran % (Auto) 0.4 % 08/31/21 09:16 Neut % (Auto) 58.6 % 08/31/21 09:16 Lymph % (Auto) 31.2 % 08/31/21 09:16 [place] % (Auto) 7.7 % 08/31/21 09:16 Eos % (Auto) 1.1 % 08/31/21 09:16 Baso % (Auto) 1.0 % 08/31/21 09:16 Neut # (Auto) 10.22 K/uL (1.4-6.5) H 08/31/21 09:16 Lymph # (Auto) 5.44 K/uL (1.2-3.4) H 08/31/21 09:16 [place] # (Auto) 1.34 K/uL (0.24-0.82) H 08/31/21 09:16 Eos # (Auto) 0.19 K/uL (0-0.50) 08/31/21 09:16 Baso # (Auto) 0.18 K/uL (0-0.2) 08/31/21 09:16 Immature Gran # (Auto) 0.07 K/uL (0.00-0.02) H 08/31/21 09:16 Peripher Smr Path Cons Cancelled 08/31/21 12:32 ESR 17 mm/hr (0-30) 08/31/21 12:32 Sodium 132 mmol/L (136-145) L 08/31/21 09:16 Potassium 3.6 mmol/L (3.5-5.1) 08/31/21 09:16 Chloride 94 mmol/L (98-107) L 08/31/21 09:16 Carbon Dioxide 23 mmol/L (21-32) 08/31/21 09:16 Anion Gap 15 (3-11) H 08/31/21 09:16 BUN 43 mg/dl (6-23) H 08/31/21 09:16 Creatinine 2.62 mg/dl (0.6-1.2) H 08/31/21 09:16 Est Cr Clr Drug Dosing 27.6 ml/min 08/31/21 09:16 Est GFR ( Amer) 22.8 ml/min 08/31/21 09:16 Est GFR (Non-Af Amer) 19.6 ml/min 08/31/21 09:16 BUN/Creatinine Ratio 16.4 (10-20) 08/31/21 09:16 Glucose 107 mg/dl (70-99(Fasting)) H 08/31/21 09:16 POC Glucose 94 mg/dl (70-99) 08/31/21 16:31 Calcium 9.2 mg/dl (8.5-10.1) 08/31/21 09:16 C-Reactive Protein 0.87 mg/dl (0-0.5) H 08/31/21 12:32 Procalcitonin 0.15 ng/ml (0-0.5) 08/31/21 12:32 Urine Color Yellow 08/31/21 16:45 Urine Appearance Clear (Clear) 08/31/21 16:45 Urine pH 5.0 (4.5-7.5) 08/31/21 16:45 Ur Specific [place] 1.012 (1.000-1.030) 08/31/21 16:45 Urine Protein Negative (Negative) 08/31/21 16:45 Urine Glucose (UA) Negative (Negative) 08/31/21 16:45 Urine Ketones Negative (Negative) 08/31/21 16:45 Urine Blood Negative (Negative) 08/31/21 16:45 Urine Nitrite Negative (Negative) 08/31/21 16:45 Urine Bilirubin Negative (Negative) 08/31/21 16:45 Urine Urobilinogen Negative (Negative) 08/31/21 16:45 Ur Leukocyte Esterase Negative (Negative) 08/31/21 16:45 Medications Administered Current Inpatient Medications Atorvastatin Calcium (Atorvastatin 40 Mg Tab) 80 mg PO DAILY AKASH Stop: 10/01/21 08:59 Clopidogrel Bisulfate (Clopidogrel Bisulfate 75 Mg Tab) 75 mg PO QPM AKASH Stop: 09/30/21 20:59 Dextrose (Dextrose 50% 50 Ml Syringe) 25 - 50 ml IV UD PRN; Protocol PRN Reason: Hypoglycemia Protocol Stop: 09/30/21 13:54 Duloxetine HCl (Duloxetine Hcl 30 Mg Cap) 30 mg PO QAM AKASH Stop: 10/01/21 08:59 Gabapentin (Gabapentin 300 Mg Cap) 300 mg PO BID AKASH Stop: 09/30/21 20:59 Glucagon (Glucagon For Inj 1 Mg Vial) 1 mg SQ UD PRN; Protocol PRN Reason: Hypoglycemia Protocol Stop: 09/30/21 13:54 Glucose (Glucose 40% Gel 15 Gm Tube) 15 - 30 gm PO UD PRN; Protocol PRN Reason: Hypoglycemia Protocol Stop: 09/30/21 13:54 Glucose (Glucose 10 Tab/Tube) 4 - 8 tab PO UD PRN; Protocol PRN Reason: Hypoglycemia Treatment Stop: 09/30/21 13:54 Insulin Aspart (Insulin Aspart Per Unit) 0 units SC ACHS AKASH Stop: 09/30/21 16:29 Insulin Detemir (Insulin Detemir Flexpen/Flex Touch 100 Units/Ml 3ml) 8 units SC HS [facility] Stop: 09/30/21 20:59 Levothyroxine Sodium (Levothyroxine Sodium 50 Mcg Tablet) 50 mcg PO DAILYBB [facility] Stop: 10/01/21 06:29 Miscellaneous (Carbohydrates For Hypoglycemia ) 15 - 30 gm PO UD PRN PRN Reason: Hypoglycemia Protocol Stop: 09/30/21 13:54 Miscellaneous Information (Pharmacy Glycemic Mgmt Consult) 1 each N/A UD PRN PRN Reason: Consult Stop: 09/30/21 14:14 Topiramate (Topiramate 25 Mg Tab) 12.5 mg PO BID [facility] Stop: 09/30/21 20:59 Code Status & VTE Plan VTE Prophylaxis Plan VTE Prophylaxis will be ordered: Yes Supervising Physician Co-Signing Physician Notes I personally examined the patient and verified all mahmood points of history and exam, discussed case, and agree with decision making with Dr Rabago. Asked to see by psychiatry due to hypotensionquickly assessed to be very volume depleted, admitted to the medical side of the hospital. By the time I see her she is mostly complaining of headachesome nausea and difficulty with bright lights. Vitals noted, in general she is awake and alert pleasant but squinting even though the room is fairly dark and appears somewhat uncomfortable from headache. HEENT normocephalic atraumatic mucous membranes moist. Osteopathic shows right greater than left suboccipitals to be high tone/tender/decreased range of motioninhibitory pressureimproved, patient tolerated well. Breathing unlabored no accessory muscle use good effort. Skin shows no rashes no pallor or icterus. Neuro without focal deficits. Hypotensionacute renal failureall almost certainly related to volume depletion. The question would be whether its that she was not taking her medications at home and then was started on it and the Lasix led to dehydration, or if her po intake was just really poor since admission because of depressioneither wayseems to be hypovolemic/dehydration not septic, not cardiogenic. Aggressive IV fluids, follow labs, follow volume status. Headachemigraine and tensionImitrex SQ given, OMT as above. Somatic dysfunction C-spineOMT as above DVT prophylaxisambulation for now, if her hospital stay becomes prolonged will initiate either subcu heparin or Lovenox depending on her renal function at that time. Diabetes as above Resident Activity Tracking Resident Involvement: Resident Care Provided Care Provided: Adult Hospital Medicine
[2021-08-31] MEDS ORDERED: CARBOHYDRATES FOR HYPOGLYCEMIA PO PRN ×2 (12:33→13:55)
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
[2021-08-31] MEDS ORDERED: GLUCOSE 40% GEL 15 GM TUBE PO PRN (13:55)
[2021-08-31] MEDS ORDERED: GLUCOSE 10 TAB/TUBE PO PRN (13:55)
[2021-08-31] MEDS ORDERED: DEXTROSE 50% 50 ML SYRINGE IV PRN (13:55)
[2021-08-31] MEDS ORDERED: GLUCAGON FOR INJ 1 MG VIAL SQ PRN (13:55)
[2021-08-31] MEDS ORDERED: Patient's HEIGHT &/or WEIGHT Needed SCH (14:15)
[2021-08-31] MEDS ORDERED: PHARMACY GLYCEMIC MGMT CONSULT PRN (14:15)
--- NOTE | 2021-08-31 14:43 | XCELERA ---
[id number]
--- NOTE | 2021-08-31 14:50 | Pharmacy Report ---
Pharmacy Glycemic Short Note 2 - Date of Service August 31, 2021 - Glycemic Short BSG Results (Last 24 hours): 08/31/21 08/31/21 09:16 12:56 Glucose 107 H POC Glucose 107 H OUTPATIENT ANTIDIABETIC REGIMEN: * Levemir 80 units daily * Novolog 10 units breakfast/lunch + 20 units with supper * metformin 1000 mg BID * Victoza 1.8 mg SQ daily ASSESSMENT: * Ms Horton is a 56 y/o F who was previously admitted to mental health unit. Patient now transferred to medical floor secondary to hypotension. * Yesterday BSGs were 55-040-64-117 mg/dL. Patient received 17 units of insulin (8 units of basal, 9 units of bolus) + metformin + Victoza. * Today's BSG is 111 mg/dL. * Patient now has significant HAN due to hypotension. Hold metformin and Victoza. * Patient ate lunch uncovered so expect dinner BSG to be higher. * Continue Levemir 8 units daily. * Continue Novolog. Expect needs to increase as metformin and Victoza are held. PLAN FOR INPATIENT GLYCEMIC CONTROL: * Hold outpatient oral diabetes medications * Basal insulin * Levemir 9 units SQ HS * Bolus insulin * NovoLog per scale ACHS or Q6hrs while NPO * Goal Range: Low 110 mg/dL - High 140 mg/dL * Correction Factor: 25 mg/dL/unit * Nutritional / Prandial insulin per carb ratio of 1 unit per 8 grams CHO consumed
[2021-08-31] MEDS ORDERED: ACETAMINOPHEN 500 MG TAB PO STA (15:03)
[2021-08-31] MEDS ORDERED: SUMAtriptan succinate 6 MG/0.5 ML VIAL SQ STA (15:03)
[2021-08-31 17:09] LABS: Appearance Urine Clear (Clear); Bilirubin Urine Negative (Negative); Blood Urine Negative (Negative); Color Urine Yellow; Glucose Urine UA Negative (Negative); Ketones Urine Negative (Negative); Leukocyte Esterase Urine Negative (Negative); Nitrite Urine Negative (Negative); Protein Urine Negative (Negative); Specific Gravity Urine 1.012 (1.000-1.030); Urobilinogen Urine Negative (Negative)
[2021-08-31] MEDS: INSULIN ASPART PER UNIT SC SCH ×2 (18:27→21:01)
--- NOTE | 2021-08-31 18:54 | Billing Data ---
Date of Service August 31, 2021 Coding Level of Care Code 52017 Initial Inpt Care Lvl 3
--- NOTE | 2021-08-31 18:55 | Hospitalist Progress Note ---
Date of Service August 31, 2021 Assessment & Plan Admission and Anticipated Discharge Date Admission Date: August 31, 2021 Results & Data Results & Data ([facility]) Vital Signs (Past 12 Hours) Vital Signs Temp Pulse Resp BP Pulse Ox O2 Del Method 08/31/21 16:06 70 16 99/63 L 95 Room Air 08/31/21 14:47 Room Air 08/31/21 14:05 97.3 F L 73 18 93/61 L 92 Room Air 08/31/21 12:22 97.5 F L 74 16 96/64 L 93 Room Air PG Care Time/CCT Total # of Minutes Spent Total Time Spent with Patient: Total time spent is greater than 50% in coordination of care (as documented) at patient's floor/unit and/or counseling patient: Coding Level of Care Code None CPT Codes Musculoskeletal - Musculoskeletal: [address] 1-2 Body regions (P [id number])
[2021-08-31] MEDS ORDERED: LACTATED RINGER'S 1,000 ML IV SCH (19:15)
[2021-08-31 19:42] LABS: Albumin Globulin Ratio 1.4 (0.9-2); BUN Creatinine Ratio 21.4 (10-20); Bilirubin,Total 0.5 mg/dl (0.2-1.0); Calcium 9.3 mg/dl (8.5-10.1); Creatinine Clr Calc Pharmacy 38.4 ml/min; Est GFR (African American) 33.1 ml/min; Est GFR (Non-African American) 28.6 ml/min; Globulin 2.9 gm/dl (2.5-4.0); Potassium 3.9 mmol/L (3.5-5.1); Total Protein 6.9 gm/dl (6.0-8.3)
[2021-08-31] MEDS: GABAPENTIN 300 MG CAP PO SCH (20:59)
[2021-08-31] MEDS ORDERED: GABAPENTIN 600 MG TAB PO SCH ×2 (21:00)
[2021-08-31] MEDS ORDERED: CLOPIDOGREL BISULFATE 75 MG TAB PO SCH (21:00)
[2021-08-31] MEDS ORDERED: INSULIN DETEMIR FLEXPEN/FLEX TOUCH 100 UNITS/ML 3ML SC SCH (21:00)
[2021-08-31] MEDS: TOPIRAMATE 25 MG TAB PO SCH (21:00)
[2021-08-31] MEDS ORDERED: TOPIRAMATE 25 MG TAB PO SCH (21:00)
[2021-08-31] MEDS ORDERED: DICLOFENAC SODIUM 25 MG TABDR PO SCH (21:00)
[2021-08-31] MEDS ORDERED: MELATONIN 3 MG TAB PO PRN (21:34)
[2021-09-01] MEDS ORDERED: ACETAMINOPHEN 500 MG TAB PO PRN (04:52)
[2021-09-01] MEDS ORDERED: LEVOTHYROXINE SODIUM 50 MCG TABLET PO SCH (06:30)
--- NOTE | 2021-09-01 07:01 | Hospitalist Progress Note ---
Date of Service September 01, 2021 Assessment & Plan (1) Hypotension: Plan: 56yo Female with PMH Bipolar depression anxiety OCD, morbid obesity HTN HLD COPD DM2 MICHAEL on CPAP, hypothyroidism migraines CAD CHF MIx3 s/p stent originally here for counseling for SI, developed dizziness lightheadedness hypotension at 6am today. Noted slightly decreasing BP 08/29 6am 95/64. Hypotension -developed hypotension 08/01 at 6am 82/50 with lightheadedness dizziness better laying down with lights off, low 61/43, no LOC noted, no compensation per HR around 70 -this is hospital day 4, has been started on all listed medication -new meds: keflex started 08/28 BID klonipin replaced prn ativan at lower dose started 08/29 escitalopram switched to duloxetine on 08/21 -Rule out allergy: patient describes similar reaction with sulfa allergy, denies any SOB rash CP abd pain, no similar reactions noted when initially taking keflex klonipin duloxetine -Likely Medication noncompliance: suspected by team, patient is fragile, reports manages her medication herself without assistance but has severe mental health condition and current SI given timing of new hypotension to starting medication, leaning more likely to med noncompliance Gabapentin since 08/28 Duloxetine 08/29 Topiramate 08/28 Trazadone 08/29 Tramadol 08/30 Furosemide 08/29 Losartan 08/29 -BP meds, trazadone, tramadol on hold given BP -BP improved with fluids ()HAN -likely 2/2 to hypotension -help BP meds -withold nephrotoxic meds for now -Gabapentin Topiramate and duloxetine adjusted given CrCl 29 -ordered 2L NSS ()Sepsis rule out -WBC elevated since 4 years, today 17.44 -Peripheral smear unremarkable, consider Heme consult outpatient -bcx pending ()Mood Disorder -may continue Gabapentin Duloxetine Topiramate at renal dosage, can adjust to home dose once HAN resolved ()Hypothyroidism -cont levothyroxine ()MICHAEL -Hs CPAP ()HLD -continue atorvastatin ()HTN -metoprolol losartan lasix on hold ()CAD -continue Plavix ()Migraines/headache -continue topiramate -given sumatriptan SQ, tylenol -if symptoms persist may resume tramadol if needed ()DM2 -SSI -Glycemic consult placed ()Asthma -cont inhaler as needed ()Bacteruia -asymptomatic, ordered repeat UA and Ucx -chronically elevated WBC -dc'd keflex FENa: regular Code Status: Full DVT PPX: SCDs Case Management: pending Dispo: to return to [facility] once stable Herlinda Rabago Do PGY 2, FCM (2) Suicidal ideations: (3) Mood disorder: (4) Leukocytosis: (5) Chronic migraine: (6) Type II diabetes mellitus, uncontrolled: (7) Morbid obesity: (8) COPD (chronic obstructive pulmonary disease) with chronic bronchitis: (9) Chronic kidney disease: (10) Dyslipidemia: (11) Diabetes mellitus, type 2: (12) Insomnia: (13) Heart failure, systolic, due to CAD: (14) Hypertension: (15) Hypothyroidism: (16) Severe obstructive sleep apnea-hypopnea syndrome: Admission and Anticipated Discharge Date Admission Date: August 31, 2021 Results & Data Results & Data ([facility]) Vital Signs (Past 12 Hours) Vital Signs Temp Pulse Pulse Resp BP Pulse Ox O2 Del Method 09/01/21 04:39 36.9 C 88 18 128/78 91 Room Air 09/01/21 02:32 79 08/31/21 23:58 Room Air 08/31/21 22:52 36.6 C 89 18 93/58 L 91 Room Air
[2021-09-01 07:55] LABS: Hematocrit (blood only) 39.4 % (34.1-44.9); Hemoglobin 13.5 g/dl (12.0-16.0); Mean Corpuscular Hemoglobin 29.6 pg (25.0-34.0); Mean Corpuscular Hgb Conc 34.3 g/dL (32.0-36.0); Mean Corpuscular Volume 86.4 fL (80.0-100.0); Mean Platelet Volume 10.1 fL (9.4-12.3); Platelet Count 188 K/uL (130-400); RDW Coefficient of Variation 13.3 % (11.5-14.5); RDW Standard Deviation 41.9 fL (36.4-46.3); Red Blood Count 4.56 M/uL (3.93-5.22); White Blood Count 12.52 K/ul (4.8-10.8)
[2021-09-01] MEDS: TOPIRAMATE 25 MG TAB PO SCH (07:58)
[2021-09-01] MEDS: GABAPENTIN 300 MG CAP PO SCH (07:59)
[2021-09-01 08:37] LABS: BUN Creatinine Ratio 30.8 (10-20); Calcium 9.7 mg/dl (8.5-10.1); Est GFR (African American) 69.6 ml/min
[2021-09-01] MEDS ORDERED: DULoxetine HCL 30 MG CAP PO SCH (09:00)
[2021-09-01] MEDS ORDERED: DULoxetine HCL 60 MG CAP PO SCH (09:00)
[2021-09-01] MEDS ORDERED: ATORVASTATIN 40 MG TAB PO SCH (09:00)
[2021-09-01] MEDS: INSULIN ASPART PER UNIT SC SCH ×2 (09:02→12:30)
[2021-09-01] MEDS ORDERED: KETOROLAC TROMETHAMINE 15 MG/ML VIAL IV ONE (12:20)
--- NOTE | 2021-09-01 12:23 | Discharge Summary ---
Date of Service September 01, 2021 Admission HPI Per Admitting Provider 56yo Female with PMH Bipolar depression anxiety OCD, morbid obesity HTN HLD COPD DM2 MICHAEL on CPAP, hypothyroidism migraines CAD CHF MIx3 s/p stent originally here for counseling for SI, developed dizziness lightheadedness hypotension at 6am today. Noted slightly decreasing BP 7/20 6am 95/64. Patient originally admitted to [facility] for MDD with SI. Today consult was placed to Hospitalist team for new onset hypotension with headache/lightheadedness/dizziness. Patient denied any rashes SOB fever chills CP abd pain at that time, states her symptoms were worse with sitting up. She described similar symptoms when she had her allergy to sulfa drugs. Per patient only new medication was Keflex started 3 days ago for presumed UTI. Patient denies urinary pain bleeding or urgency at this time. Tested orthstatic vitals in room, postive test. Per chart review patient was switched from Ativan PRN to BID klonipin in hospital, was switched from Lexapro to Duloxetine 1 week ago. Per assessment by patient was unlikely to have been compliant with her medications at home especially given her psychiatric condition, all medications were resumed 3 days ago. Noted BP has begun to decrease per chart review 3 days ago. No noted increase in heart rate with change in BP. Pulses intact in room breathing well on room arm extremities warm. Ordered CBC BMP Procal CRP ESR peripheral blood smear EKG echo. EKG unremarkable, persistent elevated WBC for 4 years that patient was unaware of, new HAN found compared to 4 days ago. Patient was given 2L fluids with slight improvement of symptoms, states headache felt closer to her usual migraine, requested pain medication. Patient agreed to try sumatriptan for migraine. Patient understands her symptoms may be in part due to restarting her BP meds, they will be held at this time. Patient understands the fluids are to treat her HAN. Patient to be transfered back to U when stable. Admission Exam Per Admitting Provider Constitutional: well developed, well nourished, + morbidly obese, cooperative and + in distress Eyes: PERRL, conjunctivae normal, anicteric sclerae ENMT: external ear and nose normal, oropharynx normal Neck: trachea midline, no thyromegaly Respiratory: normal respiratory effort, lungs clear to auscultation Cardiovascular: Rate/Rhythm: regular rate and regular rhythm Extremities: + e norma (trace b/l) Chest (Breasts): Chest: normal inspection of chest Gastrointestinal (Abdomen): normal bowel sounds, soft, nontender, no hepatosplenomegaly Skin: no rashes, warm and dry Principal Diagnosis Hypotension with HAN Discharge Exam Constitutional: well developed, well nourished, + morbidly obese, cooperative and + in distress Eyes: PERRL, conjunctivae normal, anicteric sclerae ENMT: external ear and nose normal, oropharynx normal Neck: trachea midline, no thyromegaly Respiratory: normal respiratory effort, lungs clear to auscultation Cardiovascular: Rate/Rhythm: regular rate and regular rhythm Extremities: + edema (trace b/l) Chest (Breasts): Chest: normal inspection of chest Gastrointestinal (Abdomen): normal bowel sounds, soft, nontender, no hepatosplenomegaly Skin: no rashes, warm and dry Discharge Data Allergies Allergy/AdvReac Type Severity Reaction Status Date / Time sulfamethoxazole Allergy Severe Went into Verified 08/21/21 11:23 [From Bactrim] Renal Failure trimethoprim [From Bactrim] Allergy Severe Went into Verified 08/21/21 11:23 Renal Failure Consultations 08/31/21 12:22 Consult Psychiatry Routine Hospital Course (1) Hypotension: 56yo Female with PMH Bipolar depression anxiety OCD, morbid obesity HTN HLD COPD DM2 MICHAEL on CPAP, hypothyroidism migraines CAD CHF MIx3 s/p stent originally here for counseling for SI, developed dizziness lightheadedness hypotension at 6am today. Noted slightly decreasing BP 08/29 6am 95/64. ()Hypotension Patient developed hypotension 08/01 at 6am 82/50 with lightheadedness dizziness better laying down with lights off, low 61/43, no LOC noted, no compensation per HR around 70, occured on hospital day 4 -new meds: keflex started 08/28 BID klonipin replaced prn ativan at lower dose started 08/29 escitalopram switched to duloxetine on 08/21 -Rule out allergy: patient describes similar reaction with sulfa allergy, denies any SOB rash CP abd pain, no similar reactions noted when initially taking keflex klonipin duloxetine -Likely Medication noncompliance: suspected by team, patient is fragile, reports manages her medication herself without assistance but has severe mental health condition and current SI. Medications given by hospital on following dates: Gabapentin since 08/28 Duloxetine 08/29 Topiramate 08/28 Trazadone 08/29 Tramadol 08/30 Furosemide 08/29 - patient states she takes this once a month Losartan 08/29 -BP meds on hold given recent events, may resume other psych medications -BP improved with fluids ()HAN This is likely 2/2 to hypotension. Held BP meds, withold nephrotoxic meds until HAN improves. Given IVF. Gabapentin Topiramate and duloxetine adjusted given CrCl 29, Han improved today, normal med dosages resumed. ()Sepsis rule out WBC elevated since 4 years, noted 17.4. Peripheral smear unremarkable, consider Heme consult outpatient. bcx pending ()Mood Disorder May continue Gabapentin Duloxetine Topiramate ()Hypothyroidism Cont levothyroxine ()MICHAEL Hs CPAP ()HLD Continue atorvastatin ()HTN Metoprolol losartan lasix on hold ()CAD Continue Plavix ()Migraines/headache Continue topiramate, given sumatriptan SQ, tylenol without benefit. Trialed OMT for neck pain. Gave one dose toradol 15mg IV ()DM2 SSI ordered, Glycemic consult placed ()Asthma Cont inhaler as needed ()Asymptomatic Bacteruia Asymptomatic, ordered repeat UA and Ucx. Note chronically elevated WBC. mandi'joe villareal (2) Suicidal ideations: (3) Mood disorder: (4) Leukocytosis: (5) Chronic migraine: (6) Type II diabetes mellitus, uncontrolled: (7) Morbid obesity: (8) COPD (chronic obstructive pulmonary disease) with chronic bronchitis: (9) Chronic kidney disease: (10) Dyslipidemia: (11) Diabetes mellitus, type 2: (12) Insomnia: (13) Heart failure, systolic, due to CAD: (14) Hypertension: (15) Hypothyroidism: (16) Severe obstructive sleep apnea-hypopnea syndrome: Total Time Total Time Spent Total Time Spent (In Minutes): <30 Discharge Plan Discharge Items Patient Disposition: Home - Self-Care Reason For Visit: HYPOTENSION Discharge Diagnosis: Hypotension, HAN Activity: Resume your previous activity Non-emergency contact: Primary Care Provider Call non-emergency contact if: you have any medication questions, your symptoms worsen, your pain is not controlled and you have a fever Follow-up/Referrals: Swati Berger, DO [Primary Care Provider] - Diet: Carb Consistent or DM2 and Heart Healthy Addtl Attending Provider Instructions: You were admitted to the hospital for hypotension and an acute kidney injury. We treated you with IV fluids and have stopped your blood pressure medications for now. Given your kidney injury, we will also stop your Diclofenac and other NSAID type pain medications at this time. Please follow up with your PCP to reassess your blood pressure in outpatient. Please have your kidney function checked in the next 1-2 days to ensure proper recovery of your kidney function. Be sure to drink plenty of water. You will be discharged to the [facility] in [facility] A discharge summary will be sent to your primary care physician to ensure continuity of care. Please bring this discharge summary with you to your next office appointment so that your provider can review it at that time. Follow-up appointments: Make a follow-up appointment with your PCP within one week fo discharge. It is very important that you follow up with them shortly after discharge from the hospital. Keep all your follow-up appointments as already scheduled. If you cannot make an appointment, notify your provider. Medications: Your medication list has been reviewed and reconciled upon discharge to ensure accuracy and continuity of care. An updated list of all your medications is included with your hospital discharge paperwork. Please review this list closely, and make note of any changes. * We have discontinued your Keflex * We have placed your Diclofenac and Ibuprofen on hold pending recovery of your kidney * We have placed you Metformin on hold pending recovery of your kidney * We have placed your Lasix Losartan and Metoprolol on hold given your recent blood pressures. Discuss with your PCP in outpatient to determine whether or not to resume these medications. Take your medications as instructed; do not skip a dose of your medicines. Make sure all of your doctors know every medicine you are taking (including hkgv-rgl-leposfb medicines, vitamins, and supplements). Call your primary care provider before taking any new medicines (including mdor-pys-mhogozm medicines, vitamins, and supplements), because some of these may interact with your current medications, or may make your symptoms worse. Tell your primary care provider if you cannot afford your medications. CONTACT YOUR PRIMARY CARE PROVIDER if you experience any of the following: Persistent dizziness, weakness, loss of sensation increased confusion, fever, chills, difficulty breathing Difficulty following your treatment plan, or difficulty taking medications CALL 911 OR GO TO THE EMERGENCY DEPARTMENT if you experience any of the following: Sudden, severe abdominal pain or nausea/vomiting Severe chest pain, or chest pain that radiates (moves) to your jaw or arm Sudden, severe shortness of breath or difficulty breathing Thank you for allowing us to participate in your care. Pending Studies at Discharge: No Stand-Alone Forms: My [facility] [employer], Smoking Cessation Medications and DC Order Prescriptions: Continued clopidogrel [Plavix] 75 mg tablet 75 mg PO QPM Qty: 90 1RF nitroglycerin 0.4 mg tablet, sublingual 0.4 mg sublingual Q5M PRN (Reason: chest pain) Qty: 20 2RF Rx Instructions: do not exceed 3 doses per episode Victoza 3-Isidro 0.6 mg/0.1 mL (18 mg/3 mL) pen injector 1.8 mg SQ DAILY Qty: 9 2RF atorvastatin 80 mg tablet 80 mg PO DAILY Qty: 90 2RF levothyroxine [Synthroid] 50 mcg tablet 50 mcg PO QAM Qty: 90 1RF topiramate [Topamax] 25 mg tablet 25 mg PO BID Qty: 60 2RF albuterol sulfate 90 mcg/actuation HFA aerosol inhaler 2 puffs INH Q4H PRN (Reason: shortness of breath or wheezing) Qty: 8.5 0RF trazodone 50 mg Tablet 150 mg PO HS Qty: 1 0RF dextrose [Glutose-15] 40 % Gel 15 - 30 g PO UD PRN (Reason: hypoglycemia) Qty: 112.5 0RF dextrose 50 % in water (D50W) Syringe 25 - 50 ml IV UD PRN (Reason: hypoglycemia) Qty: 500 0RF duloxetine 60 mg Capsule,Delayed Release(Dr/Ec) 60 mg PO QAM Qty: 1 0RF glucose [Dex4 Glucose] 4 gram Tablet,Chewable 16 g PO UD PRN (Reason: hypoglycemia) Qty: 1 0RF GlucaGen Diagnostic Kit 1 mg/mL Recon Soln 1 mg IM UD PRN (Reason: hypoglycemia) Qty: 1 0RF insulin aspart U-100 [Novolog U-100 Insulin aspart] 100 unit/mL Solution See Rx Instructions .ROUTE .COMPLEX Qty: 10 0RF Rx Instructions: see protocol diabetic pharmacy Levemir FlexTouch U-100 Insuln 100 unit/mL (3 mL) Insulin Pen See Rx Instructions .ROUTE .COMPLEX Qty: 3 0RF Rx Instructions: per diabetic pharmacy protocol Carbohydrates For Hypoglycemia 15 - 30 g PO UD Qty: 1 1RF Pharmacy Glycemic Mgmt Consult [Consult Glycemic Management Pharmacy] 1 ea Not Applicable UD PRN (Reason: type II DM) Qty: 1 1RF gabapentin 300 mg capsule 600 mg PO BID acetaminophen 325 mg Tablet 650 mg PO Q4H PRN (Reason: pain) Qty: 20 0RF Discontinued diclofenac sodium 50 mg tablet,delayed release (DR/EC) 50 mg PO BID Qty: 60 1RF furosemide 20 mg tablet 40 mg PO DAILY cephalexin 500 mg Capsule 500 mg PO BID Qty: 1 0RF ibuprofen 600 mg Tablet 600 mg PO Q6H PRN (Reason: fever or pain) Qty: 1 0RF metformin 1,000 mg tablet 1,000 mg PO BIDM Qty: 180 1RF Discharge Orders: Discharge Order (Routine); Ordered 09/01/21 Ordered By: Herlinda Rabago Admission Data Admit Date/Time: 08/31/21 10:13 Attending Provider: Samuel Bravo Admit Provider: Herlinda Rabago Primary Care Provider: Swati Berger Other Providers: Sharifa Martins ; Selene Allan ; Steffany De La Cruz Other Interventions: Discharge Summary Assessment (RN) Last Done: 09/01/21 13:17 Supervising Physician Co-Signing Physician Notes I personally examined the patient and verified all mahmood points of history and exam, discussed case, and agree with decision making with Dr Rabago. Still has a headache, but otherwise feels better. Very much would like to get back to inpatient psychiatry. Vitals noted, in general she is awake and alert pleasant no distress. HEENT normocephalic atraumatic mucous membranes moist. Ongoing suboccipital tendernessinhibitory pressure done. Patient tolerated well. No focal neurodeficits. Skin without rashes pallor or icterus. Hypotensionacute renal failureall almost certainly related to volume depletion. Improved with aggressive IV fluid. On discussion of her use of Lasixshe notes that she probably takes 1-2 doses a month that correlate mostly with peripheral edema. She notes that she did have pulmonary edema at 1 point in the past, which was when the Lasix was initiated. Since blood pressure and renal failure have resolved, safe for return to inpatient psychiatry Chronic diastolic CHFappears quite compensated at this time, only takes Lasix 1-2 times a month, would hold off on any regular dosing. Probably in a few days of her volume status/blood pressure is staying good we can resume her ARB though. Headachemigraine and tensionImitrex SQ given, OMT done Somatic dysfunction C-spineOMT done DVT prophylaxisambulation. Diabetes as above, stable for return to psych, otherwise as above Resident Activity Tracking Resident Involvement: Resident Care Provided Care Provided: Adult Hospital Medicine
[2021-09-01] MEDS ORDERED: traZODone HCL 50 MG TAB PO SCH (21:00)
[2021-09-01] MEDS ORDERED: GABAPENTIN 300 MG CAP PO SCH (21:00)
[2021-09-01] MEDS ORDERED: TOPIRAMATE 25 MG TAB PO SCH (21:00)
[2021-09-02] MEDS ORDERED: DULoxetine HCL 60 MG CAP PO SCH (09:00)
== END 2021-09-01 13:21 | disposition home or self-care (01) | DRG 683 ==
LOC: 2N 10:13 → INTOOBSV 10:13
DX: F39 Unspecified mood [affective] disorder; Z95.5 Presence of coronary angioplasty implant and graft; I25.2 Old myocardial infarction; Z79.84 Long term (current) use of oral hypoglycemic drugs; N17.9 Acute kidney failure, unspecified; I25.10 Atherosclerotic heart disease of native coronary artery without angina pectoris; E11.9 Type 2 diabetes mellitus without complications; Z79.4 Long term (current) use of insulin; Z79.890 Hormone replacement therapy; J45.909 Unspecified asthma, uncomplicated; I95.9 Hypotension, unspecified; I50.42 Chronic combined systolic (congestive) and diastolic (congestive) heart failure; Z68.39 Body mass index [BMI] 39.0-39.9, adult; Z79.02 Long term (current) use of antithrombotics/antiplatelets; E78.5 Hyperlipidemia, unspecified; Z87.891 Personal history of nicotine dependence; E66.01 Morbid (severe) obesity due to excess calories; F42.9 Obsessive-compulsive disorder, unspecified; J44.9 Chronic obstructive pulmonary disease, unspecified; E03.9 Hypothyroidism, unspecified; G47.33 Obstructive sleep apnea (adult) (pediatric); G43.909 Migraine, unspecified, not intractable, without status migrainosus; Z79.899 Other long term (current) drug therapy

== ENCOUNTER 2021-09-01 12:24 | Inpatient (IN) ==
[2021-09-01] MEDS ORDERED: SODIUM CHLORIDE 0.65% NA SOLN 45 ML (OCEAN) PRN (12:36)
[2021-09-01] MEDS ORDERED: MAGNESIUM HYDROXIDE SUSP 30 ML UDC PO PRN (12:36)
[2021-09-01] MEDS ORDERED: BISMUTH SUBSALICYLATE LIQD 236 ML PO PRN (12:36)
[2021-09-01] MEDS ORDERED: hydrOXYzine HCl 25 MG TAB PO PRN ×2 (12:36)
[2021-09-01] MEDS ORDERED: ALUMINUM/MAGNESIUM SUSP 30 ML UDC PO PRN (12:36)
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
[2021-09-01] MEDS ORDERED: PHARMACY GLYCEMIC MGMT CONSULT PRN (13:43)
[2021-09-01] MEDS ORDERED: GLUCOSE 10 TAB/TUBE PO PRN (14:15)
[2021-09-01] MEDS ORDERED: GLUCOSE 40% GEL 15 GM TUBE PO PRN (14:15)
[2021-09-01] MEDS ORDERED: CARBOHYDRATES FOR HYPOGLYCEMIA PO PRN (14:15)
[2021-09-01] MEDS ORDERED: DEXTROSE 50% 50 ML SYRINGE IV PRN (14:15)
[2021-09-01] MEDS ORDERED: GLUCAGON FOR INJ 1 MG VIAL IM PRN (14:15)
[2021-09-01] MEDS: INSULIN ASPART PER UNIT SC SCH ×2 (17:55→22:20)
[2021-09-01] MEDS: INSULIN DETEMIR FLEXPEN/FLEX TOUCH 100 UNITS/ML 3ML SC SCH (21:04)
[2021-09-01] MEDS: traZODone HCL 50 MG TAB PO SCH (21:07)
[2021-09-01] MEDS: GABAPENTIN 300 MG CAP PO SCH (21:07)
[2021-09-01] MEDS: CLOPIDOGREL BISULFATE 75 MG TAB PO SCH (21:07)
[2021-09-01] MEDS: TOPIRAMATE 25 MG TAB PO SCH (21:07)
[2021-09-01] MEDS: ACETAMINOPHEN 500 MG TAB PO PRN (21:10)
--- NOTE | 2021-09-02 08:57 | Psychiatric Progress Note ---
Date of Service September 02, 2021 Impression / Recommendations Impression The patient is a 56 year old with a history of MDD vs BPAD II, anxiety, PTSD, MICHAEL, T2DM, COPD and multiple medical co-morbidities including migraines and peripheral neuropathy who was admitted for worsening depression, suicide attempt vs rehearsal behavior after brief admission to medical floor for HAN and hypotension. Diagnostically consistent with severe depression in the context of multiple psychosocial stressors and after period of discontinuation from SNRI. The patient is deemed unstable and requires psychiatric hospitalization for diagnostic clarification, safety and stabilization, medication management and development of further coping skills. 09/02/21: Slightly hypertensive today, will continue to monitor. Remains very tearful and otherwise affect is extremely flat, remains severely depressed and in need of inpt treatment. Titrating duloxetine as she has been tolerating initiation so far. Restarted Klonopin to help with anxiety until SNRI takes effect. Needs family meeting. (1) MDD (major depressive disorder), recurrent, with melancholic features: (2) Suicidal ideations: (3) Posttraumatic stress disorder: (4) Insomnia: (5) Hypothyroidism: (6) Diabetic peripheral neuropathy associated with type 2 diabetes mellitus: (7) Migraine headache: Plan 09/02/21: Labwork tomorrow to recheck kidney function. Increase duloxetine to 60mg qd tomorrow morning. Added Klonopin 0.25mg BID for anxiety. 09/01/21: The patient was admitted to the [facility] ([facility] mental health unit) on q15 min checks (behavioral with suicide precautions) for safety. The patient will participate in group, recreational, and milieu therapies and will be offered additional individual and family sessions as clinically appropriate. -Continue Cymbalta 30mg qd, trazodone 150mg qhs, and gabapentin 600mg BID for peripheral neuropathy and her other prior to admission medications -per hospitalist team continue with discontinuation of her blood pressure medi cations, antibiotic, metformin, and hold any NSAIDs; repeat kidney function labwork in 1-2 days; f/up with PCP after discharge regarding blood pressure Inventory Assets Strengths: supportive family, history of stability on medication in the past, employed, housing Needs: safety and stabilization, medication adjustment, additional coping skills, increased outpatient services Suicide Risk Level Suicide Risk Level: High-Moderate (q15 min suicide checks) Suicide Risk Level Comments: High-Moderate due to severe depression with SI and attempt/rehearsal prior to admission but feels safe in the hospital, able to safety contract and agrees to let nursing/staff know should they develop plan, intent or feel unable to remain safe. Risk Factors Assessment : Yes Do You Have Access To A Gun?: No Health Problems: Yes Mental Health Diagnoses: Yes Substance Use Disorders: Yes Previous Attempt: Yes Family History of Suicide: Yes Previous Psychiatric Hospitalization: Yes Hopelessness: Yes Protective Factors Assessment : Yes Employed: Yes Stable Relationships: Yes Supportive Family: Yes Interval History Identifying Information MARY BETH OLIVERA is a 56-year-old F who currently lives in [place] with her and daughter, has a history of MDD vs BPAD II, anxiety, PTSD, and was admitted on 09/01/21 12:37 on a 201 voluntary commitment for severe depression and recent suicide rehearsal behaviors versus attempt initially admitted to [facility] on 08/28/21 and required brief inpatient medicine admission due to HAN due to suspected reaction to antibiotic treatment. Chief Complaint "I want to go back to my family". Review of Systems Sleep Information Total Hours of Sleep: 7.75 Meal Information Percent Meal Consumed - Dinner: 20 Subjective Subjective Patient was seen & assessed and interval progress reviewed with treatment team nursing and social work. Very tearful after returning to the unit last evening. Became very overwhelmed when her meal was incorrect and became tearful again and then went to bed. Today remained tearful expressing intense anxiety and requesting Klonopin which was started during her previous admission. Misses her family but agrees that she continues to require inpatient treatment due to her depression. Agrees with increasing the Cymbalta dose tomorrow, no side effects so far. Slept well last night with trazodone and appetite is improving. Discussed option for her to sign 72 hour notice, she is willing to continue with treatment at this time. Physical Exam Psychiatric Orientation: alert and oriented x 3 Apperance: appropriately dressed and appropriately groomed Eye Contact: + fair eye contact Motor Behavior: no abnormal motor movements Speech: normal rate/rhythm/volume of speech Affect: + depressed affect, + flat affect and + tearful affect Mood: + depressed mood and + anxious mood Thought Process: + concrete thought process Thought Content: reality based without delusions Suicidal Thoughts: denies suicidal thoughts Homicidal Thoughts: denies homicidal thoughts Hallucinations: no auditory hallucinations and no visual hallucinations Cognition: recent memory grossly intact, remote memory grossly intact, attention grossly intact and language grossly intact Estimated Intelligence: consistent with education level Insight: + limited insight Judgement: + fair judgement Vital Signs (Past 24 Hours) Last Vital Signs Temp 36.4 C L 09/02/21 06:46 Pulse 86 09/02/21 06:47 Resp 18 09/02/21 06:46 BP 145/89 H 09/02/21 06:47 Pulse Ox 93 09/01/21 13:39 O2 Del Method 09/01/21 13:39 Results & Data ([facility]) Laboratory Results Laboratory Results - last 24 hr 09/01/21 09/01/21 09/02/21 16:21 21:01 08:26 POC Glucose 90 100 H 107 H Current Inpatient Medications Current Inpatient Medications: Current Inpatient Medications Acetaminophen (Acetaminophen 500 Mg Tab) 1,000 mg PO Q8H PRN PRN Reason: pain Stop: 10/01/21 13:41 Last Admin: 09/01/21 21:10 Dose: 1,000 mg Al Hydrox/Mg Hydrox/Simethicone (Aluminum/Magnesium Susp 30 Ml Udc) 30 ml PO Q4H PRN PRN Reason: GI Upset Stop: 10/01/21 12:35 Atorvastatin Calcium (Atorvastatin 40 Mg Tab) 80 mg PO DAILY AKASH Stop: 10/02/21 08:59 Bismuth Subsalicylate (Bismuth Subsalicylate Liqd 236 Ml) 15 ml PO PRN PRN PRN Reason: Loose Stool Stop: 10/01/21 12:35 Clopidogrel Bisulfate (Clopidogrel Bisulfate 75 Mg Tab) 75 mg PO QPM AKASH Stop: 10/01/21 20:59 Last Admin: 09/01/21 21:07 Dose: 75 mg Duloxetine HCl (Duloxetine Hcl 30 Mg Cap) 30 mg PO QAM AKASH Stop: 10/02/21 08:59 Gabapentin (Gabapentin 300 Mg Cap) 600 mg PO BID AKASH Stop: 10/01/21 20:59 Last Admin: 09/01/21 21:07 Dose: 600 mg Glucagon (Glucagon For Inj 1 Mg Vial) 1 mg IM UD PRN; Protocol PRN Reason: Hypoglycemia Protocol Stop: 10/01/21 14:14 Glucose (Glucose 40% Gel 15 Gm Tube) 15 - 30 gm PO UD PRN; Protocol PRN Reason: Hypoglycemia Protocol Stop: 10/01/21 14:14 Glucose (Glucose 10 Tab/Tube) 4 - 8 tab PO UD PRN; Protocol PRN Reason: Hypoglycemia Protocol Stop: 10/01/21 14:14 Hydroxyzine HCl (Hydroxyzine Hcl 25 Mg Tab) 50 mg PO HSZ PRN PRN Reason: Insomnia Stop: 10/01/21 12:35 Hydroxyzine HCl (Hydroxyzine Hcl 25 Mg Tab) 25 mg PO Q4H PRN PRN Reason: Anxiety Stop: 10/01/21 12:35 Insulin Aspart (Insulin Aspart Per Unit) 0 units SC [facility] Stop: 10/01/21 17:14 Last Admin: 09/01/21 22:20 Dose: Not Given Insulin Detemir (Insulin Detemir Flexpen/Flex Touch 100 Units/Ml 3ml) 0 units SC QPM AKASH; Protocol Stop: 10/01/21 20:59 Last Admin: 09/01/21 21:04 Dose: Not Given Levothyroxine Sodium (Levothyroxine Sodium 50 Mcg Tablet) 50 mcg PO DAILYBB AKASH Stop: 10/02/21 07:59 Magnesium Hydroxide (Magnesium Hydroxide Susp 30 Ml Udc) 30 ml PO DAILY PRN PRN Reason: Constipation Stop: 10/01/21 12:35 Miscellaneous (Carbohydrates For Hypoglycemia ) 15 - 30 gm PO UD PRN PRN Reason: Hypoglycemia Treatment Stop: 10/01/21 14:14 Miscellaneous Information (Pharmacy Glycemic Mgmt Consult) 1 each N/A UD PRN PRN Reason: Consult Stop: 10/01/21 13:42 Sodium Chloride (Sodium Chloride 0.65% Na Soln 45 Ml ([place])) 1 - 2 sprays NA PRN PRN PRN Reason: Nasal Dryness/Congestion Stop: 10/01/21 12:35 Topiramate (Topiramate 25 Mg Tab) 25 mg PO BID AKSAH Stop: 10/01/21 20:59 Last Admin: 09/01/21 21:07 Dose: 25 mg Trazodone HCl (Trazodone Hcl 50 Mg Tab) 150 mg PO HS AKASH Stop: 10/01/21 21:59 Last Admin: 09/01/21 21:07 Dose: 150 mg Mental Health & Subst Abuse Tx Psychiatrist Name of Psychiatrist: [facility]- intake Psychiatrist's Date of Appointment with Psychiatrist: 09/28/21 Time of Appointment with Psychiatrist: 9:00 am Psychiatric Appointment Comment: intake packet must be completed prior to appointment Post Discharge Appointments Primary Care Physician Name Of Family Doctor: Milton Berger Contact Information Discharge Discharge Address: [address] [place] [address]
[2021-09-02] MEDS ORDERED: DULoxetine HCL 30 MG CAP PO SCH (09:00)
[2021-09-02] MEDS: TOPIRAMATE 25 MG TAB PO SCH ×2 (09:28→20:55)
[2021-09-02] MEDS: GABAPENTIN 300 MG CAP PO SCH ×2 (09:28→21:01)
[2021-09-02] MEDS: ATORVASTATIN 40 MG TAB PO SCH (09:28)
[2021-09-02] MEDS: LEVOTHYROXINE SODIUM 50 MCG TABLET PO SCH (09:28)
[2021-09-02] MEDS: INSULIN ASPART PER UNIT SC SCH ×4 (09:32→20:57)
[2021-09-02] MEDS ORDERED: clonazePAM 0.25 MG TAB PO ONE (13:52)
[2021-09-02] MEDS: clonazePAM 0.25 MG TAB PO SCH (18:33)
[2021-09-02] MEDS: traZODone HCL 50 MG TAB PO SCH (20:55)
[2021-09-02] MEDS: INSULIN DETEMIR FLEXPEN/FLEX TOUCH 100 UNITS/ML 3ML SC SCH (21:00)
[2021-09-02] MEDS: CLOPIDOGREL BISULFATE 75 MG TAB PO SCH (21:01)
[2021-09-03 08:01] LABS: Albumin Globulin Ratio 1.4 (0.9-2); BUN Creatinine Ratio 26.4 (10-20); Bilirubin,Total 0.5 mg/dl (0.2-1.0); Creatinine Clr Calc Pharmacy 79.5 ml/min; Est GFR (African American) 81.7 ml/min; Est GFR (Non-African American) 70.5 ml/min; Globulin 2.8 gm/dl (2.5-4.0); Total Protein 6.8 gm/dl (6.0-8.3)
--- NOTE | 2021-09-03 08:56 | Psychiatric Progress Note ---
Date of Service September 03, 2021 Impression / Recommendations Impression The patient is a 56 year old with a history of MDD vs BPAD II, anxiety, PTSD, MICHAEL, T2DM, COPD and multiple medical co-morbidities including migraines and peripheral neuropathy who was admitted for worsening depression, suicide attempt vs rehearsal behavior after brief admission to medical floor for HAN and hypotension. Diagnostically consistent with severe depression in the context of multiple psychosocial stressors and after period of discontinuation from SNRI. The patient is deemed unstable and requires psychiatric hospitalization for diagnostic clarification, safety and stabilization, medication management and development of further coping skills. 09/03/21: Some improvement in mood today though remains very tearful at times and with flat affect, more future-oriented as she thinks she may have found a new job opportunity and feels her job was the factor most contributing to her depression. Needs a family meeting and needs to safety plan. Continues to have intermittent migraines. Tolerating higher dose of Cymbalta so far today. Rebal labs reviewed and normal Cr and BUN continues to downtrend. (1) MDD (major depressive disorder), recurrent, with melancholic features: (2) Suicidal ideations: (3) Posttraumatic stress disorder: (4) Insomnia: (5) Hypothyroidism: (6) Diabetic peripheral neuropathy associated with type 2 diabetes mellitus: (7) Migraine headache: Plan 09/03/21: renal function labwork was normal/trending down. Continue with duloxetine 60mg qd. Klonopin 0.25mg BID for anxiety with goal of taper to discontinuation after about 2-4 weeks when Cymbalta effect has built-up. 09/02/21: Labwork tomorrow to recheck kidney function. Increase duloxetine to 60mg qd tomorrow morning. Added Klonopin 0.25mg BID for anxiety. 09/01/21: The patient was admitted to the [facility] ([facility] inpatient mental health unit) on q15 min checks (behavioral with suicide precautions) for safety. The patient will participate in group, recreational, and milieu therapies and will be offered additional individual and family sessions as clinically appropriate. -Continue Cymbalta 30mg qd, trazodone 150mg qhs, and gabapentin 600mg BID for peripheral neuropathy and her other prior to admission medications -per hospitalist team continue with discontinuation of her blood pressure medications, antibiotic, metformin, and hold any NSAIDs; repeat kidney function labwork in 1-2 days; f/up with PCP after discharge regarding blood pressure Inventory Assets Strengths: supportive family, history of stability on medication in the past, employed, housing Needs: safety and stabilization, medication adjustment, additional coping skills, increased outpatient services Suicide Risk Level Suicide Risk Level: Moderate (q15 min suicide checks) Suicide Risk Level Comments: Moderate due to severe depression with SI and attempt/rehearsal prior to admission but now denying SI and feels safe in the hospital, able to safety contract and agrees to let nursing/staff know should they develop plan, intent or feel unable to remain safe. Risk Factors Assessment : Yes Do You Have Access To A Gun?: No Health Problems: Yes Mental Health Diagnoses: Yes Substance Use Disorders: Yes Previous Attempt: Yes Family History of Suicide: Yes Previous Psychiatric Hospitalization: Yes Hopelessness: Yes Protective Factors Assessment : Yes Employed: Yes Stable Relationships: Yes Supportive Family: Yes Interval History Identifying Information SARA OLIVERA is a 56-year-old F who currently lives in [place] with her and daughter, has a history of MDD vs BPAD II, anxiety, PTSD, and was admitted on 09/01/21 12:37 on a 201 voluntary commitment for severe depression and recent suicide rehearsal behaviors versus attempt initially admitted to [facility] on 08/28/21 and required brief inpatient medicine admission due to HAN due to suspected reaction to antibiotic treatment. Chief Complaint "I really miss my family". Review of Systems Sleep Information Total Hours of Sleep: 6.5 Meal Information Percent Meal Consumed - Breakfast: 100 Percent Meal Consumed - Lunch: 90 Percent Meal Consumed - Dinner: 80 Subjective Subjective Patient was seen & assessed and interval progress reviewed with treatment team nursing and social work. Sara was very tearful last evening and again this morning. She started to feel a little bit better after checking her phone and learning about a voicemail about a potential job opportunity and called the person back and left a message. She continues to miss her family which she feels is why she becomes tearful and because she worries that if she is in the hospital for too long she may miss out on her job opportunity. She feels her depression is improving and denies SI. No side effects from higher dose of Cymbalta. Finding Klonopin very helpful for anxiety and panic attacks. Physical Exam Psychiatric Orientation: alert and oriented x 3 Apperance: appropriately dressed and appropriately groomed Eye Contact: good eye contact Motor Behavior: no abnormal motor movements Speech: normal rate/rhythm/volume of speech Affect: + flat affect Mood: + depressed mood and + anxious mood Thought Process: linear/logical thought process Thought Content: reality based without delusions Suicidal Thoughts: denies suicidal thoughts Homicidal Thoughts: denies homicidal thoughts Hallucinations: no auditory hallucinations and no visual hallucinations Cognition: recent memory grossly intact, remote memory grossly intact, attention grossly intact and language grossly intact Estimated Intelligence: consistent with education level Insight: + fair insight Judgement: + fair judgement Vital Signs (Past 24 Hours) Last Vital Signs Temp 36.6 C 09/03/21 06:24 Pulse 80 09/03/21 06:25 Resp 16 09/03/21 06:24 BP 126/84 09/03/21 06:25 Pulse Ox 93 09/01/21 13:39 O2 Del Method 09/01/21 13:39 Results & Data ([facility]) Laboratory Results Laboratory Results - last 24 hr 09/02/21 09/02/21 09/02/21 12:07 17:05 20:52 Sodium Potassium Chloride Carbon Dioxide Anion Gap BUN Creatinine Est Cr Clr Drug Dosing Est GFR ( Amer) Est GFR (Non-Af Amer) BUN/Creatinine Ratio Glucose POC Glucose 131 H 94 116 H Calcium Total Bilirubin AST ALT Alkaline Phosphatase Total Protein Albumin Globulin Albumin/Globulin Ratio 09/03/21 09/03/21 07:13 08:26 Sodium 140 Potassium 4.0 Chloride 105 Carbon Dioxide 28 Anion Gap 7 BUN 24 H Creatinine 0.91 Est Cr Clr Drug Dosing 79.5 Est GFR ( Amer) 81.7 Est GFR (Non-Af Amer) 70.5 BUN/Creatinine Ratio 26.4 H Glucose 122 H POC Glucose 114 H Calcium 9.0 Total Bilirubin 0.5 AST 16 ALT 7 Alkaline Phosphatase 96 Total Protein 6.8 Albumin 4.0 Globulin 2.8 Albumin/Globulin Ratio 1.4 Current Inpatient Medications Current Inpatient Medications: Current Inpatient Medications Acetaminophen (Acetaminophen 500 Mg Tab) 1,000 mg PO Q8H PRN PRN Reason: pain Stop: 10/01/21 13:41 Last Admin: 09/01/21 21:10 Dose: 1,000 mg Al Hydrox/Mg Hydrox/Simethicone (Aluminum/Magnesium Susp 30 Ml Udc) 30 ml PO Q4H PRN PRN Reason: GI Upset Stop: 10/01/21 12:35 Atorvastatin Calcium (Atorvastatin 40 Mg Tab) 80 mg PO DAILY AKASH Stop: 10/02/21 08:59 Last Admin: 09/02/21 09:28 Dose: 80 mg Bismuth Subsalicylate (Bismuth Subsalicylate Liqd 236 Ml) 15 ml PO PRN PRN PRN Reason: Loose Stool Stop: 10/01/21 12:35 Clonazepam (Clonazepam 0.25 Mg Tab) 0.25 mg PO BIDM AKASH Stop: 10/02/21 17:44 Last Admin: 09/02/21 18:33 Dose: 0.25 mg Clopidogrel Bisulfate (Clopidogrel Bisulfate 75 Mg Tab) 75 mg PO QPM AKASH Stop: 10/01/21 20:59 Last Admin: 09/02/21 21:01 Dose: 75 mg Duloxetine HCl (Duloxetine Hcl 60 Mg Cap) 60 mg PO QAM [facility] Stop: 10/03/21 08:59 Gabapentin (Gabapentin 300 Mg Cap) 600 mg PO BID [facility] Stop: 10/01/21 20:59 Last Admin: 09/02/21 21:01 Dose: 600 mg Glucagon (Glucagon For Inj 1 Mg Vial) 1 mg IM UD PRN; Protocol PRN Reason: Hypoglycemia Protocol Stop: 10/01/21 14:14 Glucose (Glucose 40% Gel 15 Gm Tube) 15 - 30 gm PO UD PRN; Protocol PRN Reason: Hypoglycemia Protocol Stop: 10/01/21 14:14 Glucose (Glucose 10 Tab/Tube) 4 - 8 tab PO UD PRN; Protocol PRN Reason: Hypoglycemia Protocol Stop: 10/01/21 14:14 Hydroxyzine HCl (Hydroxyzine Hcl 25 Mg Tab) 50 mg PO HSZ PRN PRN Reason: Insomnia Stop: 10/01/21 12:35 Hydroxyzine HCl (Hydroxyzine Hcl 25 Mg Tab) 25 mg PO Q4H PRN PRN Reason: Anxiety Stop: 10/01/21 12:35 Insulin Aspart (Insulin Aspart Per Unit) 0 units SC ACHS [facility] Stop: 10/01/21 17:14 Last Admin: 09/02/21 20:57 Dose: Not Given Insulin Detemir (Insulin Detemir Flexpen/Flex Touch 100 Units/Ml 3ml) 0 units SC QPM AKASH; Protocol Stop: 10/01/21 20:59 Last Admin: 09/02/21 21:00 Dose: Not Given Levothyroxine Sodium (Levothyroxine Sodium 50 Mcg Tablet) 50 mcg PO DAILYBB AKASH Stop: 10/02/21 07:59 Last Admin: 09/02/21 09:28 Dose: 50 mcg Magnesium Hydroxide (Magnesium Hydroxide Susp 30 Ml Udc) 30 ml PO DAILY PRN PRN Reason: Constipation Stop: 10/01/21 12:35 Miscellaneous (Carbohydrates For Hypoglycemia ) 15 - 30 gm PO UD PRN PRN Reason: Hypoglycemia Treatment Stop: 10/01/21 14:14 Miscellaneous Information (Pharmacy Glycemic Mgmt Consult) 1 each N/A UD PRN PRN Reason: Consult Stop: 10/01/21 13:42 Sodium Chloride (Sodium Chloride 0.65% Na Soln 45 Ml ([place])) 1 - 2 sprays NA PRN PRN PRN Reason: Nasal Dryness/Congestion Stop: 10/01/21 12:35 Topiramate (Topiramate 25 Mg Tab) 25 mg PO BID AKASH Stop: 10/01/21 20:59 Last Admin: 09/02/21 20:55 Dose: 25 mg Trazodone HCl (Trazodone Hcl 50 Mg Tab) 150 mg PO HS AKASH Stop: 10/01/21 21:59 Last Admin: 09/02/21 20:55 Dose: 150 mg Mental Health & Subst Abuse Tx Psychiatrist Name of Psychiatrist: [facility]- intake Psychiatrist's Date of Appointment with Psychiatrist: 09/28/21 Time of Appointment with Psychiatrist: 9:00 am Psychiatric Appointment Comment: intake packet must be completed prior to appointment Post Discharge Appointments Primary Care Physician Name Of Family Doctor: Milton Berger Contact Information Discharge Discharge Address: [address] [place] [address]
[2021-09-03] MEDS: LEVOTHYROXINE SODIUM 50 MCG TABLET PO SCH (09:00)
[2021-09-03] MEDS: ATORVASTATIN 40 MG TAB PO SCH (09:00)
[2021-09-03] MEDS: DULoxetine HCL 60 MG CAP PO SCH (09:01)
[2021-09-03] MEDS: GABAPENTIN 300 MG CAP PO SCH ×2 (09:02→21:09)
[2021-09-03] MEDS: TOPIRAMATE 25 MG TAB PO SCH ×2 (09:02→21:10)
[2021-09-03] MEDS: INSULIN ASPART PER UNIT SC SCH ×4 (09:17→21:14)
[2021-09-03] MEDS: clonazePAM 0.25 MG TAB PO SCH ×2 (09:18→17:57)
--- NOTE | 2021-09-03 11:44 | Pharmacy Report ---
Pharmacy Glycemic Short Note 2 - Date of Service September 03, 2021 - Glycemic Short BSG Results (Last 24 hours): 09/02/21 09/02/21 09/02/21 12:07 17:05 20:52 Glucose POC Glucose 131 H 94 116 H 09/03/21 09/03/21 07:13 08:26 Glucose 122 H POC Glucose 114 H OUTPATIENT ANTIDIABETIC REGIMEN: * Levemir 80 units daily (not taking as directed) * Novolog 11/20/19 * Victoza 1.8 mg SQ daily * metformin 1000 mg PO BID ASSESSMENT: * Ms Horton is a 56 y/o F with a PMH of T2DM. * BSGs yesterday were [id number] mg/dL. Patient received 4 units of basal yesterday. * Fasting today is 114 mg/dL. * Continue to hold metformin and Victoza. HAN has resolved today based upon serum creatinine. However, BSGs running low due to poor PO intake. Consider resumption when PO intake improves. * Levemir will be resumed when BSGs trend upwards significantly. * Restructured Novolog slightly. PLAN FOR INPATIENT GLYCEMIC CONTROL: * Hold outpatient oral diabetes medications * Basal insulin * Levemir 5 units SQ HS if BSG > 180 mg/dL * Bolus insulin * NovoLog per scale ACHS or Q6hrs while NPO * Goal Range: Low 1110 mg/dL - High 140 mg/dL * Correction Factor: 45 mg/dL/unit * Nutritional / Prandial insulin per carb ratio of 1 unit per 15 grams CHO consumed
[2021-09-03] MEDS: ACETAMINOPHEN 500 MG TAB PO PRN (12:07)
[2021-09-03] MEDS ORDERED: SUMAtriptan succinate 50 MG TAB PO ONE (15:42)
[2021-09-03] MEDS: CLOPIDOGREL BISULFATE 75 MG TAB PO SCH (21:09)
[2021-09-03] MEDS: traZODone HCL 50 MG TAB PO SCH (21:10)
[2021-09-03] MEDS: INSULIN DETEMIR FLEXPEN/FLEX TOUCH 100 UNITS/ML 3ML SC SCH (21:10)
[2021-09-04] MEDS: LEVOTHYROXINE SODIUM 50 MCG TABLET PO SCH (09:13)
[2021-09-04] MEDS: ATORVASTATIN 40 MG TAB PO SCH (09:13)
[2021-09-04] MEDS: clonazePAM 0.25 MG TAB PO SCH (09:13)
[2021-09-04] MEDS: TOPIRAMATE 25 MG TAB PO SCH (09:14)
[2021-09-04] MEDS: GABAPENTIN 300 MG CAP PO SCH (09:14)
[2021-09-04] MEDS: DULoxetine HCL 60 MG CAP PO SCH (09:14)
[2021-09-04] MEDS: INSULIN ASPART PER UNIT SC SCH (09:41)
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
== END 2021-09-04 12:56 | disposition home or self-care (01) | DRG 885 ==
LOC: 3S 12:37
DX: E03.9 Hypothyroidism, unspecified; E11.22 Type 2 diabetes mellitus with diabetic chronic kidney disease; G47.00 Insomnia, unspecified; Z87.891 Personal history of nicotine dependence; Z79.02 Long term (current) use of antithrombotics/antiplatelets; Z88.2 Allergy status to sulfonamides; Z79.890 Hormone replacement therapy; R45.851 Suicidal ideations; G43.909 Migraine, unspecified, not intractable, without status migrainosus; F41.9 Anxiety disorder, unspecified; N18.9 Chronic kidney disease, unspecified; F43.10 Post-traumatic stress disorder, unspecified; E78.5 Hyperlipidemia, unspecified; E11.42 Type 2 diabetes mellitus with diabetic polyneuropathy; Z88.1 Allergy status to other antibiotic agents; F33.3 Major depressive disorder, recurrent, severe with psychotic symptoms; I12.9 Hypertensive chronic kidney disease with stage 1 through stage 4 chronic kidney disease, or unspecified chronic kidney disease; Z79.899 Other long term (current) drug therapy; Z79.4 Long term (current) use of insulin

== ENCOUNTER 2023-10-30 15:16 | Observation (INO) ==
[2023-10-30 16:07] LABS: Basophils # (auto) 0.16 K/uL (0.00-0.20); Basophils % (auto) 0.7 %; Eosinophils # (auto) 0.06 K/uL (0.00-0.50); Eosinophils % (auto) 0.3 %; Hematocrit (blood only) 42.4 % (37.0-47.0); Hemoglobin 12.7 g/dl (12.0-16.0); Immature Granulocytes # (auto) 0.13 K/uL (0.01-0.20); Immature Granulocytes % (auto) 0.6 %; Lymphocytes # (auto) 3.73 K/uL (1.20-3.40); Lymphocytes % (auto) 17.5 %; Mean Corpuscular Hemoglobin 22.2 pg (25.0-34.0); Mean Corpuscular Volume 74.1 fL (80.0-100.0); Mean Platelet Volume 9.7 fL (9.4-12.4); Monocytes # (auto) 1.23 K/uL (0.11-0.59); Monocytes % (auto) 5.8 %; Neutrophils # (auto) 16.06 K/uL (1.40-6.50); Neutrophils % (auto) 75.1 %; Platelet Count 328 K/uL (130-400); RDW Coefficient of Variation 18.4 % (11.5-14.5); RDW Standard Deviation 45.2 fL (36.4-46.3); Red Blood Count 5.72 M/uL (4.20-5.40); White Blood Count 21.37 K/ul (4.8-10.8)
[2023-10-30 16:11] LABS: Pregnancy Test, Serum Negative (Negative)
[2023-10-30 16:13] LABS: Albumin Globulin Ratio 0.9 (0.9-2); Albumin Level 3.6 gm/dl (3.4-5.0); BUN Creatinine Ratio 14.7 (10-20); Bilirubin,Total 0.8 mg/dl (0.2-1.0); Calcium 8.8 mg/dl (8.6-10.3); Creatinine Clr Calc Pharmacy 94.5 ml/min; Est GFR (African American) 101.8 ml/min; Est GFR (Non-African American) 87.9 ml/min; Globulin 3.8 gm/dl (2.5-4.0); Potassium 3.2 mmol/L (3.5-5.1); Total Protein 7.4 gm/dl (6.0-8.3)
--- NOTE | 2023-10-30 17:56 | Emergency Department Note ---
Impression & Plan UTI (urinary tract infection), Leukocytosis, Cutaneous abscess of back excluding buttocks, Gastroenteritis ED Provider Note NAME: MARY BETH OLIVERA AGE: 58 SEX: F : 1965 ARRIVES VIA: Walk-In INFORMANT: Patient ED PROVIDER(S): Brien Cordova MD CHIEF COMPLAINT: Nausea, vomiting, diarrhea, abdominal pain. PLAN: Disposition: Admit MEDICAL DECISION MAKING: The patient is a pleasant 58-year-old woman with a past medical history of hypertension, hyperlipidemia, CKD, COPD, fatty liver, hypothyroidism, diabetes with associated neuropathy, restless leg syndrome, CAD who presents to the emergency department via walk-in for evaluation of nausea, vomiting, diarrhea, headache that has been ongoing for the past 5 days. She has any cough, congestion and shortness of breath. She has any chest pain. She reports stools been watery brown. She reports she was treated with antibiotics several weeks ago for a lower extremity wound infection which she reports is since healed following management by the wound clinic. She reports as an aside that she noticed a boil in her left flank last week which she squeezed and was able to express discharge but then the boil has since gotten bigger. She denies any fevers. Of note, the patient did arrive to emergency department during time of high volume, acuity and prolonged emergency department waiting times. Critical pathways initiated from triage. On evaluation the patient is no acute distress, afebrile stable vital signs. She appears clinically dry. She has mild lower abdominal discomfort without discrete tenderness. Left upper flank region of induration with 4cm area of fluctuance without overlying erythema, induration, or warmth consistent with abscess versus large sebaceous cyst. WBC 20 1.3K with neutrophilia but no left shift, nonspecific. H/H and platelets within normal limits. Chemistry without metabolic acidosis. Magnesium 1.4 and potassium 3.2 electrolytes otherwise unremarkable. LFTs are unremarkable. Lipase not elevated. Procalcitonin is not elevated. UA is suspicious for infection with positive nitrites, WBCs and 4+ bacteria. Stool studies were ordered however the patient has yet to provide a sample. Respiratory BioFire was negative. CT of the abdomen/pelvis was performed and demonstrates evidence of enteritis and otherwise no acute abnormalities. Of note, review of the soft tissues of the CT of the abdomen pelvis does confirm discrete fluid collection of the subcutaneous tissue of the left flank that correlates with exam. Incision and drainage with packing performed per TOM Ong. Wound culture sent and pending. Blood culture was obtained and empiric treatment that she had with cefepime and daptomycin. Stool studies were ordered but sample was yet to be provided. Case was discussed with Dr. Benz, [facility] hospitalist, who will evaluate the patient for admission. Further management per admitting team. Triage Nursing notes reviewed and agree them. Prior/external medical records reviewed Vital Signs: reviewed Differential diagnosis: Gastroenteritis, food borne illness, infections, appendicitis, diverticulitis, inflammatory bowel disease, obstruction, GI bleed, biliary pathology, volvulus, as well as other pathologies. ER treatment provided: See below. Diagnostics interpreted by me: Cardiac Monitoring: An order for continuous cardiac monitoring was placed and demonstrated normal sinus rhythm, 77 bpm, no ectopy. Laboratory studies: See below Imaging studies: See below Consultation(s): Case was discussed with Dr. Benz, [facility] hospitalist, who will evaluate the patient for admission. HPI: The patient is a pleasant 58-year-old woman with a past medical history of hypertension, hyperlipidemia, CKD, COPD, fatty liver, hypothyroidism, diabetes with associated neuropathy, restless leg syndrome, CAD who presents to the emergency department via walk-in for evaluation of nausea, vomiting, diarrhea, headache that has been ongoing for the past 5 days. She has any cough, congestion and shortness of breath. She has any chest pain. She reports stools been watery brown. She reports she was treated with antibiotics several weeks ago for a lower extremity wound infection which she reports is since healed following management by the wound clinic. She reports as an aside that she noticed a boil in her left flank last week which she squeezed and was able to express discharge but then the boil has since gotten bigger. She denies any fevers. ROS: See above HPI for pertinent positives & negatives. A total of 10 systems reviewed and were otherwise negative. VITALS:See Below PHYSICAL EXAMINATION: GENERAL: Awake, alert, fatigued-appearing, in no distress, BMI 38.2 HENT: Normocephalic, atraumatic. Oropharynx with dry mucous membranes and otherwise unremarkable. EYES: Normal conjunctiva. Sclera non-icteric. NECK: Supple. No nuchal rigidity. FROM. No JVD. RESPIRATORY: Clear to auscultation. CARDIAC: Regular rate, normal rhythm. Extremities warm and well perfused. Pulses equal. ABDOMEN: Soft, non-distended. Mild lower abdominal discomfort without discrete tenderness to palpation. No rebound or guarding. No masses. MUSCULOSKELETAL: Chest examination reveals no tenderness. The back is symmetrical on inspection without obvious abnormality. There is no CVA tenderness to palpation. No joint edema. LOWER EXTREMITIES: Calves are equal size bilaterally and non-tender. No edema. No discoloration. NEURO: Normal sensorium. No sensory or motor deficits noted. SKIN: Left upper flank region of induration with 4cm area of fluctuance without overlying erythema, induration, or warmth consistent with abscess versus large sebaceous cyst. No rash or jaundice noted. ED COURSE: Procedures: See I&D per TOM Ong. Brien Cordova MD Past Med/Surg History Problem List (Updated 10/31/23 @ 15:47 by Brien Cordova MD) Gastroenteritis (Acute) Cutaneous abscess of back excluding buttocks (Acute) Leukocytosis (Acute) UTI (urinary tract infection) (Acute) Leukocytosis Burn of left foot Atherosclerosis Class 3 obesity Poorly controlled type 2 diabetes mellitus Fibromyalgia Dyspnea Lung nodule Generalized anxiety disorder with panic attacks MDD (major depressive disorder), recurrent, with melancholic features Lower extremity edema Chronic diastolic CHF (congestive heart failure) Peptic ulcer disease Fatty infiltration of liver seen on CT scan dated 09/04/2020 Chronic kidney disease COPD (chronic obstructive pulmonary disease) with chronic bronchitis Tobacco abuse Marijuana abuse Bipolar disorder Dyslipidemia Obsessive compulsive disorder Posttraumatic stress disorder Glaucoma Insomnia Asthma rare use PRN inh Coronary artery disease (Chronic) Follows with [facility] Heart failure, systolic, due to CAD Hypertension (Chronic) Hypothyroidism Nocturnal hypoxia Restless legs syndrome Severe obstructive sleep apnea-hypopnea syndrome CPAP + 4 LPM O2 Diabetic peripheral neuropathy associated with type 2 diabetes mellitus (Chronic) Vitamin D deficiency Migraine headache Medical History Suicidal ideations MSSA (methicillin susceptible Staphylococcus aureus) infection Tenosynovitis of hand History of colon polyps Gastritis History of heart attack (2008) x3, 2008 and 2013 Surgical History History of removal of cyst (04/02/22) FINAL DIAGNOSIS In office procedure Dr. Ramondelli A. Skin, back scalp cyst, excision: - Ruptured epidermoid cyst B. Skin, right front scalp cyst, excision: - Focal cyst wall lining (see comment) History of removal of cyst FINAL DIAGNOSIS Scalp, excision: - Heavily inflamed squamous cyst consistent with an epidermal cyst. In office procedure Dr. Trujillo 07/25/2021 Hx of cataract surgery History of cataract surgery 11/30/20 R eye and 12/12/20 L eye S/P dilation and curettage S/P cardiac catheterization Dr. Roblero - March 2019 and April 2019. [place] cardiac [place] 2008 [place] 2009 [place] 1 [place] 2013 - [place] - angioplasty, no stents -- all caths done at [facility] in [place], [place] History of esophagogastroduodenoscopy (EGD) most recent 11/11/19 [place] History of colonoscopy most recent 11/11/19 [facility] S/P hysterectomy secondary to endometriosis, tubes also removed. Ovaries retained H/O heart artery stent x 3 S/P tonsillectomy H/O hernia repair (03/11/17) History of cholecystectomy History of x 2 History of appendectomy Family History Father Diabetes Coronary heart disease Myocardial infarction Hypertension Mother Diabetes Coronary heart disease Hypertension Stroke Slow to wake up after anesthesia Brother Diabetes Grandmother (Maternal) Diabetes Myocardial infarction Hypertension Grandmother (Paternal) Coronary heart disease Aunt Breast cancer Uterine cancer Paternal Grandfather (Maternal) Colorectal cancer Uncle Colorectal cancer Family/Other Ovarian cancer Multiple cousins Denies family history of Prostate cancer Lung cancer Social History Smoking Status: Current every day smoker Tobacco Type: Cigarettes Age Started Using Tobacco: 11; Age Quit Using Tobacco: 57; packs per day: 0.5; Cigarettes Per Day: 1 ppd; Second Hand Exposure: No; Do You Dip or Chew Tobacco: No; Hx Alcohol Use: No Hx Substance Use: Yes Prescribed Medications: Marijuana Last Used Substance: Days (ago) Last Used Substance Other:: 2 weeks ago Substance Use Type Other:: medical marijuana card Preferred Language: Faroese Communication Ability: Effective Visual Impairment: No Limitations Hearing Ability: Normal [employer]ver [employer] Required: No Beliefs That Will Affect Care: None marital status: Current Living Situation: Spouse and Family Current Living Situation Comment: house; 2 story current occupational status: employed and unemployed How many Children do You have: 2 Feels Safe at Home: Yes Childhood Exposure to Second-Hand Smoke: Yes Diet: regular Diet Comment: does not follow diet caffeine: Yes (ice tea) during the past year weight has: other Dental Care, Regularly: Yes Physical Activity Frequency: 1-2 Times per Week Physical Activity Frequency Comment: swimming Seatbelt Use: always Sunscreen Use: No Assistive Devices: Cane, CPAP and Oxygen - at Night Allergies Allergies Allergy/AdvReac Type Severity Reaction Status Date / Time cephalexin [From Keflex] Allergy Severe kidney Verified 10/30/23 18:46 failure sulfamethoxazole Allergy Severe Went into Verified 10/30/23 18:46 [From Bactrim] Renal Failure trimethoprim [From Bactrim] Allergy Severe Went into Verified 10/30/23 18:46 Renal Failure Home Meds Home Medications Medication Instructions Recorded Confirmed evolocumab 140 mg/mL subcutaneous 140 mg subcut Q14D 10/30/23 10/30/23 pen injector (Repatha SureClick) galcanezumab-gnlm 120 mg/mL 120 mg subcut MONTHLY 10/30/23 10/30/23 subcutaneous pen injector (Emgality Pen) Previous Rx's Medication Instructions Recorded acetaminophen 325 mg tablet 650 mg (2 x 325 mg) PO Q4H PRN 01/26/21 pain #20 tabs compression stockings #1 ea 04/23/22 Auto Titrating CPAP #1 ea 07/12/22 CPAP Supplies #1 ea 07/12/22 Walking Cane #1 ea 08/06/22 albuterol sulfate 90 mcg/actuation 2 puff inhalation Q4H PRN 03/05/23 aerosol inhaler shortness of breath or wheezing #8.5 grams pregabalin 150 mg capsule 150 mg PO BID 30 days #60 caps 05/05/23 glucagon 3 mg/actuation nasal spray 3 mg intranasal ONCE PRN severe 06/03/23 hypoglycemia #2 ea polyethylene glycol 3350 17 gram 17 g PO DAILY #30 ea 06/20/23 oral powder packet (Miralax) cyclobenzaprine 10 mg tablet 10 mg PO TID PRN muscle spasm #30 09/29/23 tabs atorvastatin 80 mg tablet 80 mg PO DAILY #90 tabs 10/16/23 blood-glucose sensor (Dexcom G7 #3 ea 10/16/23 Sensor device) budesonide-formoterol HFA 160 2 puff inhalation BID #10.2 grams 10/16/23 mcg-4.5 mcg/actuation aerosol inhaler (Symbicort) clopidogrel 75 mg tablet (Plavix) 75 mg PO QPM #90 tabs 10/16/23 duloxetine 30 mg capsule,delayed 30 mg PO DAILY #90 caps 10/16/23 release duloxetine 60 mg capsule,delayed 60 mg PO DAILY 3 months #90 caps 10/16/23 release ezetimibe 10 mg tablet 10 mg PO DAILY #90 tabs 10/16/23 fluticasone propionate 50 2 spray intranasal DAILY #48 grams 10/16/23 mcg/actuation nasal spray,suspension (Flonase Allergy Relief) hydroxyzine pamoate 25 mg capsule 25 mg PO Q8H PRN anxiety #30 caps 10/16/23 (Vistaril) insulin aspart U-100 100 unit/mL 12 unit (0.12 mL) .Route TID #30 mL 10/16/23 (3 mL) subcutaneous pen insulin glargine U-300 conc 300 See Rx Instructions subcut DAILY 10/16/23 unit/mL (3 mL) subcutaneous pen #18 mL (Toujeo Max U-300 SoloStar) levothyroxine 88 mcg tablet 88 mcg PO DAILY #90 tabs 10/16/23 nitroglycerin 0.4 mg sublingual 0.4 mg sublingual Q5M PRN chest 10/16/23 tablet pain #20 tabs pantoprazole 40 mg tablet,delayed 40 mg PO DAILY #90 tabs 10/16/23 release tiotropium bromide 2.5 2 puff inhalation DAILY #4 grams 10/16/23 mcg/actuation mist for inhalation (Spiriva Respimat) topiramate 50 mg tablet 50 mg PO BID #180 tabs 10/16/23 trazodone 150 mg tablet 150 mg PO HS PRN Insomnia #90 tabs 10/16/23 empagliflozin 25 mg tablet 25 mg PO DAILY #30 tabs 10/22/23 blood sugar diagnostic (OneTouch #100 ea 10/24/23 Verio test strips) Results & Data (ED) Vital Signs Vital Signs - 24 hr 10/30/23 17:16 10/30/23 17:59 10/30/23 18:00 Pulse Rate 77 77 Pulse Rate [Apical] 78 Pulse Rate from SpO2 Sensor 77 Respiratory Rate 19 12 Respiratory Effort / Characteristics Non-Labored Spontaneous Respiratory Depth Normal Respiratory Pattern Regular Blood Pressure 112/84 Blood Pressure [Right Arm] 99/76 L Blood Pressure Mean 93 Blood Pressure Mean [Right Arm] 83 Pulse Oximetry 94 100 Oxygen Delivery Method Room Air 10/30/23 18:30 10/30/23 19:09 10/30/23 19:48 Pulse Rate 74 74 76 Pulse Rate [Apical] Pulse Rate from SpO2 Sensor 78 74 77 Respiratory Rate 12 16 22 Respiratory Effort / Characteristics Respiratory Depth Respiratory Pattern Blood Pressure 112/84 Blood Pressure [Right Arm] Blood Pressure Mean 93 Blood Pressure Mean [Right Arm] Pulse Oximetry 92 99 99 Oxygen Delivery Method 10/30/23 21:53 Pulse Rate 77 Pulse Rate [Apical] Pulse Rate from SpO2 Sensor Respiratory Rate Respiratory Effort / Characteristics Respiratory Depth Respiratory Pattern Blood Pressure Blood Pressure [Right Arm] Blood Pressure Mean Blood Pressure Mean [Right Arm] Pulse Oximetry Oxygen Delivery Method Laboratory Data Attestation: I reviewed the patient's lab results. 10/31/23 05:46 10/31/23 05:46 Lab Results 10/30/23 10/30/23 10/30/23 Range/Units 15:37 17:20 20:20 WBC 21.37 H (4.8-10.8) K/ul RBC 5.72 H (4.20-5.40) M/uL Hgb 12.7 (12.0-16.0) g/dl Hct 42.4 (37.0-47.0) % MCV 74.1 L (80.0-100.0) fL MCH 22.2 L (25.0-34.0) pg MCHC 30.0 L (32.0-36.0) g/dL RDW Std Deviation 45.2 (36.4-46.3) fL RDW Coeff of Caitlin 18.4 H (11.5-14.5) % Plt Count 328 (130-400) K/uL MPV 9.7 (9.4-12.4) fL Immature Gran % (Auto) 0.6 % Neut % (Auto) 75.1 % Lymph % (Auto) 17.5 % Greenlee % (Auto) 5.8 % Eos % (Auto) 0.3 % Baso % (Auto) 0.7 % Neut # (Auto) 16.06 H (1.40-6.50) K/uL Lymph # (Auto) 3.73 H (1.20-3.40) K/uL Greenlee # (Auto) 1.23 H (0.11-0.59) K/uL Eos # (Auto) 0.06 (0.00-0.50) K/uL Baso # (Auto) 0.16 (0.00-0.20) K/uL Immature Gran # (Auto) 0.13 (0.01-0.20) K/uL Sodium 136 (136-145) mmol/L Potassium 3.2 L (3.5-5.1) mmol/L Chloride 101 (98-107) mmol/L Carbon Dioxide 23 (21-32) mmol/L Anion Gap 12 H (3-11) BUN 11 (6-23) mg/dl Creatinine 0.75 (0.6-1.2) mg/dl Est Cr Clr Drug Dosing 94.5 ml/min Est GFR ( Amer) 101.8 ml/min Est GFR (Non-Af Amer) 87.9 ml/min BUN/Creatinine Ratio 14.7 (10-20) Glucose 266 H (70-99(Fasting)) mg/dl Calcium 8.8 (8.6-10.3) mg/dl Magnesium 1.4 L (1.7-2.4) mg/dl Total Bilirubin 0.8 (0.2-1.0) mg/dl AST 13 (13-39) U/L ALT 4 L (7-52) U/L Alkaline Phosphatase 217 H (34-104) U/L Total Protein 7.4 (6.0-8.3) gm/dl Albumin 3.6 (3.4-5.0) gm/dl Globulin 3.8 (2.5-4.0) gm/dl Albumin/Globulin Ratio 0.9 (0.9-2) Lipase 9 L (11-82) U/L Procalcitonin 0.07 (0-0.5) ng/ml HCG, Qual Negative (Negative) Urine Color [place] Urine Appearance Cloudy A (Clear) Urine pH 5.5 (4.5-7.5) Ur Specific Lorenzo 1.033 H (1.000-1.030) Urine Protein 1+ H (Negative) Urine Glucose (UA) Trace H (Negative) Urine Ketones Negative (Negative) Urine Blood Negative (Negative) Urine Nitrite Positive A (Negative) Urine Bilirubin 1+ H (Negative) Urine Urobilinogen Negative (Negative) Ur Leukocyte Esterase 1+ H (Negative) Urine WBC (Auto) 21-50 H (0-5) /hpf Urine RBC (Auto) 0-2 (0-2) /hpf U Hyaline Cast (Auto) 3-5 H (0-2) /lpf U Epithel Cells (Auto) 11-20 H (0-2) /hpf Urine Bacteria (Auto) 4+ H (None Seen) Adenovirus (PCR) Not Detected (NotDetected) B. pertussis DNA (PCR) Not Detected (NotDetected) B.parapertussis DNA PCR Not Detected (NotDetected) C. pneumoniae DNA (PCR) Not Detected (NotDetected) Coronavirus OC43 (PCR) Not Detected (NotDetected) Coronavirus HKU1 (PCR) Not Detected (NotDetected) Coronavirus 229E (PCR) Not Detected (NotDetected) SARS-CoV-2 (PCR) Not Detected (NotDetected) Coronavirus NL63 (PCR) Not Detected (NotDetected) Human Metapneumovir PCR Not Detected (NotDetected) Influenza Type A (PCR) Not Detected (NotDetected) Influenza Type B (PCR) Not Detected (NotDetected) M. pneumoniae (PCR) Not Detected (NotDetected) Parainfluenza 1 (PCR) Not Detected (NotDetected) Parainfluenza 2 (PCR) Not Detected (NotDetected) Parainfluenza 3 (PCR) Not Detected (NotDetected) Parainfluenza 4 (PCR) Not Detected (NotDetected) RSV (PCR) Not Detected (NotDetected) Entero/Rhino (PCR) Not Detected (NotDetected) Administered Medications Hydrocodone Bitart/Acetaminophen (Hydrocodone/Acetamophen 5/325mg Tab) 1 tab PO Q6H PRN PRN Reason: Moderate Pain (Scale 4, 5, 6) Stop: 11/13/23 23:23 Last Admin: 10/31/23 11:19 Dose: 1 tab Documented By: [id number] Admin: 10/31/23 04:37 Dose: 1 tab Documented By: BYRON Atorvastatin Calcium (Atorvastatin 40 Mg Tab) 80 mg PO DAILY AKASH Stop: 11/30/23 08:59 Last Admin: 10/31/23 09:26 Dose: 80 mg Documented By: [id number] Cholestyramine Resin (Cholestyramine Light 4 Gm Pkt) 4 gm PO BID@1000,2200 AKASH Stop: 11/30/23 09:59 Last Admin: 10/31/23 11:19 Dose: 4 gm Documented By: [id number] Cyclobenzaprine HCl (Cyclobenzaprine Hcl 10 Mg Tab) 10 mg PO TID PRN PRN Reason: muscle spasm Stop: 11/29/23 23:23 Last Admin: 10/31/23 09:25 Dose: 10 mg Documented By: [id number] Duloxetine HCl (Duloxetine Hcl 30 Mg Cap) 30 mg PO DAILY [facility] Stop: 11/30/23 08:59 Last Admin: 10/31/23 09:27 Dose: 30 mg Documented By: [id number] Duloxetine HCl (Duloxetine Hcl 60 Mg Cap) 60 mg PO DAILY [facility] Stop: 11/30/23 08:59 Last Admin: 10/31/23 09:27 Dose: 60 mg Documented By: [id number] Ezetimibe (Ezetimibe 10 Mg Tab) 10 mg PO DAILY [facility] Stop: 11/30/23 08:59 Last Admin: 10/31/23 09:27 Dose: 10 mg Documented By: [id number] Fluticasone Propionate (Fluticasone Propionate Na Spr 16 Gm Btl) 2 sprays NASEEM DAILY [facility] Stop: 11/30/23 08:59 Last Admin: 10/31/23 09:27 Dose: 2 sprays Documented By: [id number] Fluticasone/Vilanterol (Fluticasone/Vilanterol 100/25mcg 14 Puffs/Inhaler) 1 puffs INH DAILY [facility]; Protocol Stop: 11/30/23 08:59 Last Admin: 10/31/23 09:26 Dose: 1 puffs Documented By: [id number] Daptomycin 450 mg/ Syringe 9 mls @ 4.5 mls/min IV Q24H [facility]; Protocol Stop: 11/01/23 20:59 Last Admin: 10/30/23 22:46 Dose: 4.5 mls/min Documented By: NENO Cefepime HCl 2,000 mg/ Syringe 20 mls @ 5 mls/min IV Q12H AKASH; Protocol Stop: 11/05/23 12:59 Last Admin: 10/31/23 14:06 Dose: 5 mls/min Documented By: [id number] Levothyroxine Sodium (Levothyroxine Sodium 88 Mcg Tablet) 88 mcg PO DAILYBB AKASH Stop: 11/30/23 06:29 Last Admin: 10/31/23 06:36 Dose: 88 mcg Documented By: BYRON Pantoprazole Sodium (Pantoprazole 40 Mg Tab) 40 mg PO DAILY AKASH Stop: 11/30/23 08:59 Last Admin: 10/31/23 09:27 Dose: 40 mg Documented By: [id number] Pregabalin (Pregabalin 150 Mg Cap) 150 mg PO BID AKASH Stop: 11/29/23 23:54 Last Admin: 10/31/23 09:25 Dose: 150 mg Documented By: [id number] Admin: 10/31/23 01:10 Dose: 150 mg Documented By: BYRON Topiramate (Topiramate 50 Mg Tab) 50 mg PO BID AKASH Stop: 11/29/23 23:54 Last Admin: 10/31/23 09:26 Dose: 50 mg Documented By: [id number] Admin: 10/31/23 00:28 Dose: 50 mg Documented By: BYRON Trazodone HCl (Trazodone Hcl 50 Mg Tab) 150 mg PO HS PRN PRN Reason: Insomnia Stop: 11/29/23 23:23 Last Admin: 10/31/23 00:28 Dose: 150 mg Documented By: BYRON Umeclidinium Perry (Umeclidinium Perry 62.5mcg/Blister 7 Puffs/Inhaler) 1 puffs INH DAILY AKASH Stop: 11/30/23 08:59 Last Admin: 10/31/23 09:26 Dose: 1 puffs Documented By: [id number] Discontinued Medications Cholestyramine Resin (Cholestyramine Light 4 Gm Pkt) 4 gm PO ONE STA Stop: 10/30/23 22:13 Last Admin: 10/30/23 22:47 Dose: 4 gm Documented By: NENO Dicyclomine HCl (Dicyclomine Hcl 10 Mg/Ml 2 Ml Amp/Vial) 20 mg IM NOW ONE Stop: 10/30/23 17:53 Last Admin: 10/30/23 18:30 Dose: 20 mg Documented By: NENO Acetaminophen (Ofirmev) 1,000 mg in 100 mls @ 400 mls/hr IV NOW STA Stop: 10/30/23 18:03 Last Infusion: 10/30/23 19:09 Dose: Infused Documented By: Admin: 10/30/23 18:18 Dose: 400 mls/hr Documented By: NENO Famotidine (Pepcid 20mg Iv Push) 20 mg in 5 mls @ 2.5 mls/min IV NOW STA Stop: 10/30/23 17:50 Last Admin: 10/30/23 18:18 Dose: 2.5 mls/min Documented By: NENO Sodium Chloride (Nss) 1,000 mls @ 999 mls/hr IV .Q1H1M ONE Stop: 10/30/23 18:53 Last Infusion: 10/30/23 23:24 Dose: Infused Documented By: Admin: 10/30/23 18:17 Dose: 999 mls/hr Documented By: NENO Cefepime HCl (Maxipime) 2,000 mg in 20 mls @ 5 mls/min IV NOW STA; Protocol Stop: 10/30/23 20:50 Last Admin: 10/30/23 21:49 Dose: 5 mls/min Documented By: NENO Sodium Chloride (Nss) 1,000 mls @ 999 mls/hr IV .Q1H1M ONE Stop: 10/30/23 21:56 Last Admin: 10/30/23 21:47 Dose: Not Given Documented By: NENO Potassium Chloride/Sodium Chloride (Normal Saline W/20 Meq Kcl) 20 meq in 1,000 mls @ 100 mls/hr IV .Q10H STA Stop: 10/31/23 08:10 Last Infusion: 10/31/23 09:23 Dose: Infused Documented By: [id number] Admin: 10/31/23 00:27 Dose: 100 mls/hr Documented By: BYRON Insulin Glargine (Lantus Per Unit Charge) 80 units SC QAM AKASH Stop: 10/31/23 09:01 Last Admin: 10/31/23 09:25 Dose: 80 units Documented By: [id number] Co-signed By: KATE Ioversol (Optiray 320 100ml) 93 ml IV ONCE ONE Stop: 10/30/23 19:01 Last Admin: 10/30/23 19:00 Dose: 93 ml Documented By: [id number] Lidocaine HCl (Lidocaine 1% Local 20 Ml Vial) 20 ml INFIL NOW ONE Stop: 10/30/23 20:44 Last Admin: 10/30/23 21:48 Dose: 20 ml Documented By: BGC Ondansetron HCl (Ondansetron Inj 2 Mg/Ml 2 Ml Vial) 4 mg IV NOW STA Stop: 10/30/23 17:50 Last Admin: 10/30/23 18:30 Dose: 4 mg Documented By: BS Potassium Chloride (Potassium Chloride Crtab 20 Meq Tabcr) 40 meq PO NOW STA Stop: 10/31/23 08:01 Last Admin: 10/31/23 09:25 Dose: 40 meq Documented By: [id number] Imaging Data Radiologist's Impression: Abdomen/Pelvis CT 10/30/23 17:49 Exam(s): CT ABDOMEN + PELVIS With Contrast IV Amt: 93 ml optiray 320 EXAM: CT Abdomen and Pelvis With Intravenous Contrast CLINICAL HISTORY: Reason for exam: abd pain, n/v/d. TECHNIQUE: Axial computed tomography images of the abdomen and pelvis with intravenous contrast. CTDI is 28.13 mGy and DLP is 1422.36 mGy-cm. Automated exposure control was utilized for the study. A dose lowering technique was utilized adhering to the principles of ALARA. CONTRAST: Patient received 93 ml optiray 320 of IV contrast COMPARISON: No relevant prior studies available. FINDINGS: Lung bases: Unremarkable. No mass. No consolidation. ABDOMEN: Liver: Fatty liver. Gallbladder and bile ducts: Cholecystectomy. No ductal dilation. Pancreas: Unremarkable. No mass. No ductal dilation. Spleen: Mild splenomegaly. Adrenals: Unremarkable. No mass. Kidneys and ureters: Unremarkable. No solid mass. No hydronephrosis. Stomach and bowel: Mild 13 cm long segment of distal small bowel wall thickening seen in the lower abdomen on image 62, series 2. There is no bowel obstruction. PELVIS: Appendix: No findings to suggest acute appendicitis. Bladder: Unremarkable. No mass. Reproductive: Unremarkable as visualized. ABDOMEN and PELVIS: Intraperitoneal space: Unremarkable. No free air. No significant fluid collection. Bones/joints: No acute fracture. No dislocation. Soft tissues: Unremarkable. Vasculature: Unremarkable. No abdominal aortic aneurysm. Lymph nodes: Unremarkable. No enlarged lymph nodes. IMPRESSION: 1. No CT evidence of colitis.. Distal small bowel wall thickening which could be from enteritis. 2. Fatty liver, recanalization of the umbilical vein and mild splenomegaly Electronically signed by: Ulysses Castillo MD 10/30/23 19:57 PM Discharge Plan Visit Data Chief Complaint: Abdominal Pain Stated Complaint: R SIDED ABD PAIN, DIARRHEA, HEADACHE ED Provider: Brien Cordova Discharge Problem: UTI (urinary tract infection), Leukocytosis, Cutaneous abscess of back excluding buttocks, Gastroenteritis Patient Disposition: Admitted As Inpatient Discharge Instructions Interventions: ED Discharge Assessment Last Done: 10/31/23 03:01 Discharge Problem: UTI (urinary tract infection) Qualifiers: Urinary tract infection type: acute cystitis Hematuria presence: with hematuria Qualified Code(s): N30.01 - Acute cystitis with hematuria Leukocytosis Qualifiers: Leukocytosis type: unspecified Qualified Code(s): D72.829 - Elevated white blood cell count, unspecified
[2023-10-30 18:04] LABS: Appearance Urine Cloudy (Clear); Bacteria Urine Automated 4+ (None Seen); Bilirubin Urine 1+ (Negative); Blood Urine Negative (Negative); Color Urine Orange; Glucose Urine UA Trace (Negative); Ketones Urine Negative (Negative); Leukocyte Esterase Urine 1+ (Negative); Nitrite Urine Positive (Negative); Protein Urine 1+ (Negative); RBC Urine Automated 0-2 /hpf (0-2); Specific Gravity Urine 1.033 (1.000-1.030); Urobilinogen Urine Negative (Negative); WBC Urine Automated 21-50 /hpf (0-5); pH Urine 5.5 (4.5-7.5)
[2023-10-30] MEDS: SODIUM CHLORIDE 0.9% 1,000 ML IV ONE ×2 (18:17→21:47)
[2023-10-30] MEDS: FAMOTIDINE 20MG IV PUSH 20 MG/5 ML SYR IV STA (18:18)
[2023-10-30] MEDS: ACETAMINOPHEN 1,000 MG/100 ML VIAL IV STA (18:18)
[2023-10-30] MEDS: ONDANSETRON INJ 2 MG/ML 2 ML VIAL IV STA (18:30)
[2023-10-30] MEDS: DICYCLOMINE HCL 10 MG/ML 2 ML AMP/VIAL IM ONE (18:30)
[2023-10-30] MEDS: OPTIRAY 320 100ml IV ONE (19:00)
--- NOTE | 2023-10-30 19:58 | CT Scan Report ---
Exam(s): CT ABDOMEN + PELVIS With Contrast IV Amt: 93 ml optiray 320 EXAM: CT Abdomen and Pelvis With Intravenous Contrast CLINICAL HISTORY: Reason for exam: abd pain, n/v/d. TECHNIQUE: Axial computed tomography images of the abdomen and pelvis with intravenous contrast. CTDI is 28.13 mGy and DLP is 1422.36 mGy-cm. Automated exposure control was utilized for the study. A dose lowering technique was utilized adhering to the principles of ALARA. CONTRAST: Patient received 93 ml optiray 320 of IV contrast COMPARISON: No relevant prior studies available. FINDINGS: Lung bases: Unremarkable. No mass. No consolidation. ABDOMEN: Liver: Fatty liver. Gallbladder and bile ducts: Cholecystectomy. No ductal dilation. Pancreas: Unremarkable. No mass. No ductal dilation. Spleen: Mild splenomegaly. Adrenals: Unremarkable. No mass. Kidneys and ureters: Unremarkable. No solid mass. No hydronephrosis. Stomach and bowel: Mild 13 cm long segment of distal small bowel wall thickening seen in the lower abdomen on image 62, series 2. There is no bowel obstruction. PELVIS: Appendix: No findings to suggest acute appendicitis. Bladder: Unremarkable. No mass. Reproductive: Unremarkable as visualized. ABDOMEN and PELVIS: Intraperitoneal space: Unremarkable. No free air. No significant fluid collection. Bones/joints: No acute fracture. No dislocation. Soft tissues: Unremarkable. Vasculature: Unremarkable. No abdominal aortic aneurysm. Lymph nodes: Unremarkable. No enlarged lymph nodes. IMPRESSION: 1. No CT evidence of colitis.. Distal small bowel wall thickening which could be from enteritis. 2. Fatty liver, recanalization of the umbilical vein and mild splenomegaly Electronically signed by: Ulysses Castillo MD 10/30/23 19:57 PM
[2023-10-30 21:30] LABS: Adenovirus PCR Not Detected (NotDetected); Bordetella parapertussis PCR Not Detected (NotDetected); Bordetella pertussis PCR Not Detected (NotDetected); Chlamydia pneumoniae PCR Not Detected (NotDetected); Coronavirus 229E PCR Not Detected (NotDetected); Coronavirus CoV-2 (COVID19)PCR Not Detected (NotDetected); Coronavirus HKU1 PCR Not Detected (NotDetected); Coronavirus NL63 PCR Not Detected (NotDetected); Coronavirus OC43PCR Not Detected (NotDetected); Human Metapneumovirus PCR Not Detected (NotDetected); Influenza A PCR Not Detected (NotDetected); Influenza B PCR Not Detected (NotDetected); Mycoplasma pneumoniae PCR Not Detected (NotDetected); Parainfluenza Virus 1 PCR Not Detected (NotDetected); Parainfluenza Virus 2 PCR Not Detected (NotDetected); Parainfluenza Virus 3 PCR Not Detected (NotDetected); Parainfluenza Virus 4 PCR Not Detected (NotDetected); Respiratory Syncytial VirusPCR Not Detected (NotDetected); Rhinovirus/Enterovirus PCR Not Detected (NotDetected)
[2023-10-30] MEDS ORDERED: NSS + 20MEQ KCL 20 MEQ/1,000 ML BAG IV SCH (21:45)
[2023-10-30 21:48] LABS: Magnesium 1.4 mg/dl (1.7-2.4)
[2023-10-30] MEDS: LIDOCAINE 1% LOCAL 20 ML VIAL INFIL ONE (21:48)
[2023-10-30] MEDS: CEFEPIME 2,000 MG/20 ML VIAL IV STA (21:49)
--- NOTE | 2023-10-30 21:56 | History & Physical Report ---
Date of Service October 30, 2023 Assessment & Plan (1) Gastroenteritis: (2) Cutaneous abscess of back excluding buttocks: (3) UTI (urinary tract infection): (4) Burn of left foot: (5) Poorly controlled type 2 diabetes mellitus: (6) Obsessive compulsive disorder: (7) Posttraumatic stress disorder: (8) MDD (major depressive disorder), recurrent, with melancholic features: (9) Generalized anxiety disorder with panic attacks: (10) Dyslipidemia: (11) Severe obstructive sleep apnea-hypopnea syndrome: (12) Coronary artery disease: (13) Heart failure, systolic, due to CAD: (14) Hypertension: Plan Urinary tract infection- Follow urine culture sensitivity Status post 1 L normal saline in the ED NSS + KCl 20 mill equivalents at 100 mL/h x 1 L Gastroenteritis- Stool PCR and C. difficile testing pending Patient had recently completed 10-day course of doxycycline for left foot burn Placed on cholestyramine 4 g p.o. twice daily, with first dose this evening IV fluids as noted above CT scan notes thickening of small bowel, which could be associated with enteritis Patient has been on MiraLAX in the past, but she denies recent use Skin abscess on back- Status post I&D with cultures sent from the ED UTI, gastroenteritis and skin abscess to be covered with daptomycin IV and cefepime IV Diabetes mellitus- Noted to be poorly controlled Placed on Accu-Cheks with NovoLog SSI Hold empagliflozin Continue glargine but decreased from 130 to 100 units subcu every morning Hypertension/CAD/CHF- Continue atorvastatin, clopidogrel, Zetia PTSD/OCD/generalized anxiety disorder with panic attacks/bipolar disorder/peripheral neuropathy- Continue cyclobenzaprine, duloxetine, hydroxyzine, pregabalin, topiramate and trazodone History of Present Illness Chief Complaint: The patient presents to the emergency department with complaints regarding persistent loose stools, up to 5-6 times per day, urinary frequency and dysuria, and a infected abscess on her back area. Primary Care Provider: Swati Berger DO The patient is a 58-year-old female with a past medical history including burning of left foot, poorly controlled diabetes mellitus type 2, fibromyalgia, generalized anxiety disorder with panic attacks, MDD, chronic HFpEF, peptic ulcer disease, fatty liver, COPD, tobacco abuse, history of marijuana abuse, bipolar disorder, dyslipidemia, OCD, PTSD, CAD, hypertension, severe MICHAEL. The patient presents with symptoms of gastroenteritis, urinary tract infection, and infected skin abscess on her back. Patient underwent an I&D by the ED of cutaneous back lesion. Allergies Allergy/AdvReac Type Severity Reaction Status Date / Time cephalexin [From Keflex] Allergy Severe kidney Verified 10/30/23 18:46 failure sulfamethoxazole Allergy Severe Went into Verified 10/30/23 18:46 [From Bactrim] Renal Failure trimethoprim [From Bactrim] Allergy Severe Went into Verified 10/30/23 18:46 Renal Failure Home Medications Medication Instructions Recorded Confirmed Type acetaminophen 325 mg tablet 650 mg (2 x 325 mg) PO Q4H PRN 01/26/21 10/30/23 Rx pain #20 tabs compression stockings #1 ea 04/23/22 10/10/23 Rx Auto Titrating CPAP #1 ea 07/12/22 10/10/23 Rx CPAP Supplies #1 ea 07/12/22 10/10/23 Rx Walking Cane #1 ea 08/06/22 10/10/23 Rx albuterol sulfate 90 mcg/actuation 2 puff inhalation Q4H PRN 03/05/23 10/30/23 Rx aerosol inhaler shortness of breath or wheezing #8.5 grams pregabalin 150 mg capsule 150 mg PO BID 30 days #60 caps 05/05/23 10/30/23 Rx glucagon 3 mg/actuation nasal spray 3 mg intranasal ONCE PRN severe 06/03/23 10/30/23 Rx hypoglycemia #2 ea polyethylene glycol 3350 17 gram 17 g PO DAILY #30 ea 06/20/23 10/30/23 Rx oral powder packet (Miralax) cyclobenzaprine 10 mg tablet 10 mg PO TID PRN muscle spasm #30 09/29/23 10/30/23 Rx tabs atorvastatin 80 mg tablet 80 mg PO DAILY #90 tabs 10/16/23 10/30/23 Rx blood-glucose sensor (Dexcom G7 #3 ea 10/16/23 10/17/23 Rx Sensor device) budesonide-formoterol HFA 160 2 puff inhalation BID #10.2 grams 10/16/23 10/30/23 Rx mcg-4.5 mcg/actuation aerosol inhaler (Symbicort) clopidogrel 75 mg tablet (Plavix) 75 mg PO QPM #90 tabs 10/16/23 10/30/23 Rx duloxetine 30 mg capsule,delayed 30 mg PO DAILY #90 caps 10/16/23 10/30/23 Rx release duloxetine 60 mg capsule,delayed 60 mg PO DAILY 3 months #90 caps 10/16/23 10/30/23 Rx release ezetimibe 10 mg tablet 10 mg PO DAILY #90 tabs 10/16/23 10/30/23 Rx fluticasone propionate 50 2 spray intranasal DAILY #48 grams 10/16/23 10/30/23 Rx mcg/actuation nasal spray,suspension (Flonase Allergy Relief) hydroxyzine pamoate 25 mg capsule 25 mg PO Q8H PRN anxiety #30 caps 10/16/23 10/30/23 Rx (Vistaril) insulin aspart U-100 100 unit/mL 12 unit (0.12 mL) .Route TID #30 mL 10/16/23 10/30/23 Rx (3 mL) subcutaneous pen insulin glargine U-300 conc 300 See Rx Instructions subcut DAILY 10/16/23 10/30/23 Rx unit/mL (3 mL) subcutaneous pen #18 mL (Toujeo Max U-300 SoloStar) levothyroxine 88 mcg tablet 88 mcg PO DAILY #90 tabs 10/16/23 10/30/23 Rx nitroglycerin 0.4 mg sublingual 0.4 mg sublingual Q5M PRN chest 10/16/23 10/30/23 Rx tablet pain #20 tabs pantoprazole 40 mg tablet,delayed 40 mg PO DAILY #90 tabs 10/16/23 10/30/23 Rx release tiotropium bromide 2.5 2 puff inhalation DAILY #4 grams 10/16/23 10/30/23 Rx mcg/actuation mist for inhalation (Spiriva Respimat) topiramate 50 mg tablet 50 mg PO BID #180 tabs 10/16/23 10/30/23 Rx trazodone 150 mg tablet 150 mg PO HS PRN Insomnia #90 tabs 10/16/23 10/30/23 Rx empagliflozin 25 mg tablet 25 mg PO DAILY #30 tabs 10/22/23 10/30/23 Rx blood sugar diagnostic (OneTouch #100 ea 10/24/23 10/24/23 Rx Verio test strips) evolocumab 140 mg/mL subcutaneous 140 mg subcut Q14D 10/30/23 10/30/23 History pen injector (Repatha SureClick) galcanezumab-gnlm 120 mg/mL 120 mg subcut MONTHLY 10/30/23 10/30/23 History subcutaneous pen injector (Emgality Pen) Past Med/Surg History Problem List (Updated 10/30/23 @ 23:22 by Background Daemon) Gastroenteritis (Acute) Cutaneous abscess of back excluding buttocks (Acute) Leukocytosis (Acute) UTI (urinary tract infection) (Acute) Leukocytosis Burn of left foot Atherosclerosis Class 3 obesity Poorly controlled type 2 diabetes mellitus Fibromyalgia Dyspnea Lung nodule Generalized anxiety disorder with panic attacks MDD (major depressive disorder), recurrent, with melancholic features Lower extremity edema Chronic diastolic CHF (congestive heart failure) Peptic ulcer disease Fatty infiltration of liver seen on CT scan dated 09/04/2020 Chronic kidney disease COPD (chronic obstructive pulmonary disease) with chronic bronchitis Tobacco abuse Marijuana abuse Bipolar disorder Dyslipidemia Obsessive compulsive disorder Posttraumatic stress disorder Glaucoma Insomnia Asthma rare use PRN inh Coronary artery disease (Chronic) Follows with [facility] Heart failure, systolic, due to CAD Hypertension (Chronic) Hypothyroidism Nocturnal hypoxia Restless legs syndrome Severe obstructive sleep apnea-hypopnea syndrome CPAP + 4 LPM O2 Diabetic peripheral neuropathy associated with type 2 diabetes mellitus (Chronic) Vitamin D deficiency Migraine headache Medical History Suicidal ideations MSSA (methicillin susceptible Staphylococcus aureus) infection Tenosynovitis of hand History of colon polyps Gastritis History of heart attack (2008) x3, 2009 and 2013 Surgical History History of removal of cyst (04/02/22) FINAL DIAGNOSIS In office procedure Dr. Trujillo A. Skin, back scalp cyst, excision: - Ruptured epidermoid cyst B. Skin, right front scalp cyst, excision: - Focal cyst wall lining (see comment) History of removal of cyst FINAL DIAGNOSIS Scalp, excision: - Heavily inflamed squamous cyst consistent with an epidermal cyst. In office procedure Dr. Trujillo 07/25/2021 Hx of cataract surgery History of cataract surgery 11/30/20 R eye and 12/12/20 L eye S/P dilation and curettage S/P cardiac catheterization Dr. Roblero - March 2019 and April 2019. History of cardiac catheterization 2008 - [place] - 2 stents 2010 - [place] - 1 stent 2014 - [place] - angioplasty, no stents -- all caths done at [facility] in [place], [place] History of esophagogastroduodenoscopy (EGD) most recent 11/11/19 [place] History of colonoscopy most recent 11/11/19 [place] S/P hysterectomy secondary to endometriosis, tubes also removed. Ovaries retained H/O heart artery stent x 3 S/P tonsillectomy H/O hernia repair (03/11/17) History of cholecystectomy History of x 2 History of appendectomy Family History Father Diabetes Coronary heart disease Myocardial infarction Hypertension Mother Diabetes Coronary heart disease Hypertension Stroke Slow to wake up after anesthesia Brother Diabetes Grandmother (Maternal) Diabetes Myocardial infarction Hypertension Grandmother (Paternal) Coronary heart disease Aunt Breast cancer Uterine cancer Paternal Grandfather (Maternal) Colorectal cancer Uncle Colorectal cancer Family/Other Ovarian cancer Multiple cousins Denies family history of Prostate cancer Lung cancer Social History Smoking Status: Current every day smoker Tobacco Type: Cigarettes Age Started Using Tobacco: 11; Age Quit Using Tobacco: 57; packs per day: 0.5; Cigarettes Per Day: 1 pack; Second Hand Exposure: No; Do You Dip or Chew Tobacco: No; Hx Alcohol Use: No Hx Substance Use: Yes Prescribed Medications: Marijuana Last Used Substance: Days (ago) Last Used Substance Other:: yesterday Substance Use Type Other:: medical marijuana card Preferred Language: Maldivian Communication Ability: Effective Visual Impairment: No Limitations Hearing Ability: Normal Stopper Maker Helper Required: No Beliefs That Will Affect Care: None marital status: Current Living Situation: Spouse and Family Current Living Situation Comment: house; 2 story current occupational status: employed and unemployed How many Children do You have: 2 Feels Safe at Home: Yes Childhood Exposure to Second-Hand Smoke: Yes Diet: regular Diet Comment: does not follow diet caffeine: Yes (ice tea) during the past year weight has: other Dental Care, Regularly: Yes Physical Activity Frequency: 1-2 Times per Week Physical Activity Frequency Comment: swimming Seatbelt Use: always Sunscreen Use: No Assistive Devices: Cane, CPAP, Glasses and Oxygen - at Night Review of Systems Review of Systems: The patient denies chest pain, palpitations, shortness of breath, dyspnea on exertion, cough, lower extremity swelling, sore throat, fevers, chills, sweats, vomiting, blood in urine or stool, lightheadedness, dizziness, headache, memory loss, loss of consciousness, abnormal bruising or bleeding, imbalance, focal weakness, numbness or tingling in arms or legs, generalized arthralgias or myalgias, back or neck pain, or night sweats. The review of systems is otherwise negative other than for that already noted above, and at least 10 systems have been reviewed. Physical Exam Physical Exam: The patient is awake, alert and oriented 3, well developed and well nourished, normocephalic and atraumatic, lying in bed and in no acute distress. HEENT--PERRL, EOMI, mucous membranes and oropharynx mildly dry. Neck--supple. No JVD. No bruits. Thyroid normal, trachea midline, no adenopathy. Heart--normal S1 and S2. No murmurs, rubs or gallops. Lungs--clear bilaterally, no respiratory distress, no accessory muscle use. Abdomen--normal bowel sounds and soft. Nontender. Nondistended, no hernias or masses, no organomegaly. Extremities--no cyanosis or clubbing. No edema. There are good distal pulses b/l. Dermatologic--skin abscess on back, presently being prepped for I&D by the ED Neurologic--cranial nerves II through XII grossly intact. Rheumatologic--normal range of motion. Psychiatric--normal affect. Results & Data Results & Data Vital Signs (Past 12 Hours) Vital Signs Temp Pulse Pulse Resp BP BP Pulse Ox 10/30/23 21:53 77 10/30/23 19:48 76 22 99 10/30/23 19:09 74 16 99 10/30/23 18:30 74 12 112/84 92 10/30/23 18:00 77 12 112/84 100 10/30/23 17:59 77 10/30/23 17:16 78 19 99/76 L 94 10/30/23 15:16 36.6 C 86 18 100/64 97 O2 Del Method 10/30/23 21:53 10/30/23 19:48 09/19/24 19:09 10/30/23 18:30 10/30/23 18:00 10/30/23 17:59 10/30/23 17:16 Room Air 10/30/23 15:16 Laboratory Results Laboratory Results WBC 21.37 K/ul (4.8-10.8) H 10/30/23 15:37 RBC 5.72 M/uL (4.20-5.40) H 10/30/23 15:37 Hgb 12.7 g/dl (12.0-16.0) 10/30/23 15:37 Hct 42.4 % (37.0-47.0) 10/30/23 15:37 MCV 74.1 fL (80.0-100.0) L 10/30/23 15:37 MCH 22.2 pg (25.0-34.0) L 10/30/23 15:37 MCHC 30.0 g/dL (32.0-36.0) L 10/30/23 15:37 RDW Std Deviation 45.2 fL (36.4-46.3) 10/30/23 15:37 RDW Coeff of Caitlin 18.4 % (11.5-14.5) H 10/30/23 15:37 Plt Count 328 K/uL (130-400) 10/30/23 15:37 MPV 9.7 fL (9.4-12.4) 10/30/23 15:37 Immature Gran % (Auto) 0.6 % 10/30/23 15:37 Neut % (Auto) 75.1 % 10/30/23 15:37 Lymph % (Auto) 17.5 % 10/30/23 15:37 [place] % (Auto) 5.8 % 10/30/23 15:37 Eos % (Auto) 0.3 % 10/30/23 15:37 Baso % (Auto) 0.7 % 10/30/23 15:37 Neut # (Auto) 16.06 K/uL (1.40-6.50) H 10/30/23 15:37 Lymph # (Auto) 3.73 K/uL (1.20-3.40) H 10/30/23 15:37 [place] # (Auto) 1.23 K/uL (0.11-0.59) H 10/30/23 15:37 Eos # (Auto) 0.06 K/uL (0.00-0.50) 10/30/23 15:37 Baso # (Auto) 0.16 K/uL (0.00-0.20) 10/30/23 15:37 Immature Gran # (Auto) 0.13 K/uL (0.01-0.20) 10/30/23 15:37 Sodium 136 mmol/L (136-145) 10/30/23 15:37 Potassium 3.2 mmol/L (3.5-5.1) L 10/30/23 15:37 Chloride 101 mmol/L (98-107) 10/30/23 15:37 Carbon Dioxide 23 mmol/L (21-32) 10/30/23 15:37 Anion Gap 12 (3-11) H 10/30/23 15:37 BUN 11 mg/dl (6-23) 10/30/23 15:37 Creatinine 0.75 mg/dl (0.6-1.2) 10/30/23 15:37 Est Cr Clr Drug Dosing 94.5 ml/min 10/30/23 15:37 Est GFR ( Amer) 101.8 ml/min 10/30/23 15:37 Est GFR (Non-Af Amer) 87.9 ml/min 10/30/23 15:37 BUN/Creatinine Ratio 14.7 (10-20) 10/30/23 15:37 Glucose 266 mg/dl (70-99(Fasting)) H 10/30/23 15:37 Calcium 8.8 mg/dl (8.6-10.3) 10/30/23 15:37 Magnesium 1.4 mg/dl (1.7-2.4) L 10/30/23 15:37 Total Bilirubin 0.8 mg/dl (0.2-1.0) 10/30/23 15:37 AST 13 U/L (13-39) 10/30/23 15:37 ALT 4 U/L (7-52) L 10/30/23 15:37 Alkaline Phosphatase 217 U/L (34-104) H 10/30/23 15:37 Total Protein 7.4 gm/dl (6.0-8.3) 10/30/23 15:37 Albumin 3.6 gm/dl (3.4-5.0) 10/30/23 15:37 Globulin 3.8 gm/dl (2.5-4.0) 10/30/23 15:37 Albumin/Globulin Ratio 0.9 (0.9-2) 10/30/23 15:37 Lipase 9 U/L (11-82) L 10/30/23 15:37 Procalcitonin 0.07 ng/ml (0-0.5) 10/30/23 15:37 HCG, Qual Negative (Negative) 10/30/23 15:37 Urine Color [place] 10/30/23 17:20 Urine Appearance Cloudy (Clear) A 10/30/23 17:20 Urine pH 5.5 (4.5-7.5) 10/30/23 17:20 Ur Specific [place] 1.033 (1.000-1.030) H 10/30/23 17:20 Urine Protein 1+ (Negative) H 10/30/23 17:20 Urine Glucose (UA) Trace (Negative) H 10/30/23 17:20 Urine Ketones Negative (Negative) 10/30/23 17:20 Urine Blood Negative (Negative) 10/30/23 17:20 Urine Nitrite Positive (Negative) A 10/30/23 17:20 Urine Bilirubin 1+ (Negative) H 10/30/23 17:20 Urine Urobilinogen Negative (Negative) 10/30/23 17:20 Ur Leukocyte Esterase 1+ (Negative) H 10/30/23 17:20 Urine WBC (Auto) 21-50 /hpf (0-5) H 10/30/23 17:20 Urine RBC (Auto) 0-2 /hpf (0-2) 10/30/23 17:20 U Hyaline Cast (Auto) 3-5 /lpf (0-2) H 10/30/23 17:20 U Epithel Cells (Auto) 11-20 /hpf (0-2) H 10/30/23 17:20 Urine Bacteria (Auto) 4+ (None Seen) H 10/30/23 17:20 Adenovirus (PCR) Not Detected (NotDetected) 10/30/23 20:20 B. pertussis DNA (PCR) Not Detected (NotDetected) 10/30/23 20:20 B.parapertussis DNA PCR Not Detected (NotDetected) 10/30/23 20:20 C. pneumoniae DNA (PCR) Not Detected (NotDetected) 10/30/23 20:20 Coronavirus OC43 (PCR) Not Detected (NotDetected) 10/30/23 20:20 Coronavirus HKU1 (PCR) Not Detected (NotDetected) 10/30/23 20:20 Coronavirus 229E (PCR) Not Detected (NotDetected) 10/30/23 20:20 SARS-CoV-2 (PCR) Not Detected (NotDetected) 10/30/23 20:20 Coronavirus NL63 (PCR) Not Detected (NotDetected) 10/30/23 20:20 Human Metapneumovir PCR Not Detected (NotDetected) 10/30/23 20:20 Influenza Type A (PCR) Not Detected (NotDetected) 10/30/23 20:20 Influenza Type B (PCR) Not Detected (NotDetected) 10/30/23 20:20 M. pneumoniae (PCR) Not Detected (NotDetected) 10/30/23 20:20 Parainfluenza 1 (PCR) Not Detected (NotDetected) 10/30/23 20:20 Parainfluenza 2 (PCR) Not Detected (NotDetected) 10/30/23 20:20 Parainfluenza 3 (PCR) Not Detected (NotDetected) 10/30/23 20:20 Parainfluenza 4 (PCR) Not Detected (NotDetected) 10/30/23 20:20 RSV (PCR) Not Detected (NotDetected) 10/30/23 20:20 Entero/Rhino (PCR) Not Detected (NotDetected) 10/30/23 20:20 Impressions Abdomen/Pelvis CT 10/30/23 17:49 Exam(s): CT ABDOMEN + PELVIS With Contrast IV Amt: 93 ml optiray 320 EXAM: CT Abdomen and Pelvis With Intravenous Contrast CLINICAL HISTORY: Reason for exam: abd pain, n/v/d. TECHNIQUE: Axial computed tomography images of the abdomen and pelvis with intravenous contrast. CTDI is 28.13 mGy and DLP is 1422.36 mGy-cm. Automated exposure control was utilized for the study. A dose lowering technique was utilized adhering to the principles of ALARA. CONTRAST: Patient received 93 ml optiray 320 of IV contrast COMPARISON: No relevant prior studies available. FINDINGS: Lung bases: Unremarkable. No mass. No consolidation. ABDOMEN: Liver: Fatty liver. Gallbladder and bile ducts: Cholecystectomy. No ductal dilation. Pancreas: Unremarkable. No mass. No ductal dilation. Spleen: Mild splenomegaly. Adrenals: Unremarkable. No mass. Kidneys and ureters: Unremarkable. No solid mass. No hydronephrosis. Stomach and bowel: Mild 13 cm long segment of distal small bowel wall thickening seen in the lower abdomen on image 62, series 2. There is no bowel obstruction. PELVIS: Appendix: No findings to suggest acute appendicitis. Bladder: Unremarkable. No mass. Reproductive: Unremarkable as visualized. ABDOMEN and PELVIS: Intraperitoneal space: Unremarkable. No free air. No significant fluid collection. Bones/joints: No acute fracture. No dislocation. Soft tissues: Unremarkable. Vasculature: Unremarkable. No abdominal aortic aneurysm. Lymph nodes: Unremarkable. No enlarged lymph nodes. IMPRESSION: 1. No CT evidence of colitis.. Distal small bowel wall thickening which could be from enteritis. 2. Fatty liver, recanalization of the umbilical vein and mild splenomegaly Electronically signed by: Ulysses Castillo MD 10/30/23 19:57 PM Code Status & VTE Plan Code Status Full code VTE Prophylaxis Plan VTE Prophylaxis will be ordered: Yes PG Care Time/CCT Total # of Minutes Spent Total Time Spent with Patient: Total time spent is greater than 50% in coordination of care (as documented) at patient's floor/unit and/or counseling patient: Coding Level of Care Code 84095 INT INP/OBS CARE 3/75MIN Diagnoses Gastroenteritis K52.9 Cutaneous abscess of back excluding buttocks L02.212 UTI (urinary tract infection) N39.0 Burn of left foot T25.022A Poorly controlled type 2 diabetes mellitus E11.65 Obsessive compulsive disorder F42.9 Posttraumatic stress disorder F43.10 MDD (major depressive disorder), recurrent, with melancholic features F33.9 Generalized anxiety disorder with panic attacks F41.1; F41.0 Dyslipidemia E78.5 Severe obstructive sleep apnea-hypopnea syndrome G47.33 Coronary artery disease I25.10 Heart failure, systolic, due to CAD I50.20; I25.10 Hypertension I10
[2023-10-30] MEDS: DAPTOmycin 450 MG in SYRINGE 0 ML IV SCH (22:46)
[2023-10-30] MEDS: CHOLESTYRAMINE LIGHT 4 GM PKT PO STA (22:47)
[2023-10-30] MEDS ORDERED: ONDANSETRON INJ 2 MG/ML 2 ML VIAL IV PRN (23:24)
[2023-10-30] MEDS ORDERED: hydrOXYzine HCl 25 MG TAB PO PRN (23:24)
[2023-10-30] MEDS ORDERED: ALBUTEROL HFA 8 GM INHALER INH PRN (23:24)
[2023-10-30] MEDS ORDERED: NITROGLYCERIN SL 0.4 MG/TAB TAB SL PRN (23:24)
--- NOTE | 2023-10-30 23:27 | Emergency Department Note ---
ED Visit Note 58-year-old female who is seen by Dr. Cordova, ED attending physician. Dr. Cordova requested that I perform an I&D procedure of a left flank abscess seen on CT imaging. Please see Dr. Cordova's dictation for further treatment and final disposition. PROCEDURE NOTE: Patient provided verbal consent for I&D procedure under local anesthesia. The area was painted with iodine x 3, and allowed to dry. Sterile field was created. Using lidocaine 1% without epinephrine, good local anesthesia/wheal was administered. This was further extended into the deeper tissue. Using a #11 scalpel, a 1.5 cm incision was made with copious purulent drainage. Wound cultures were collected. Needle drivers were then further used to open underlying loculations. The patient did have a moderate amount of purulent discharge without active bleeding. The wound was then further expressed for additional purulent drainage. Area was then irrigated with normal saline, then 0.25 inch plain packing was placed within all margins of the wound. Dry gauze was applied. The patient tolerated the procedure well. .
[2023-10-30] MEDS ORDERED: DEXTROSE 50% 50 ML SYRINGE IV PRN (23:45)
[2023-10-30] MEDS ORDERED: GLUCOSE 40% GEL 15 GM TUBE PO PRN (23:45)
[2023-10-30] MEDS ORDERED: CARBOHYDRATES FOR HYPOGLYCEMIA PO PRN (23:45)
[2023-10-30] MEDS ORDERED: GLUCAGON FOR INJ 1 MG VIAL IM PRN (23:45)
[2023-10-30] MEDS ORDERED: GLUCOSE 10 TAB/TUBE PO PRN (23:45)
[2023-10-31] MEDS: NSS + 20MEQ KCL 20 MEQ/1,000 ML BAG IV STA (00:27)
[2023-10-31] MEDS: traZODone HCL 50 MG TAB PO PRN (00:28)
[2023-10-31] MEDS: TOPIRAMATE 50 MG TAB PO SCH (00:28)
[2023-10-31] MEDS: PREGABALIN 150 MG CAP PO SCH (01:10)
--- OUTSIDE RECORDS SUMMARY | 2023-10-31 03:32 | External Medical Summary | Summary of Care ---
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 Name Role Phone Swati Berger DO Primary Care Provider [phone] Reason for Referral * Evaluate & Treat - Unlimited Visits (Within 10 days (routine)) - Pending Review Specialty Diagnoses / Procedures Referred By Bindu t Referred To Contact Neurology Diagnoses Fibromyalgia Gilles Layne CRNP [address] [facility] [address] [place] [address] Referral ID Status Reason Start Date Expiration Date Visits Requested Visits Authorized [id number] Pending Review Specialty Services Required 10/30/2023 1 1 Question Answer Referral Priority Within 10 days (routine) [facility] NEUROLOGY REFERRAL QUESTIONS Neuromuscular Where should this appointment be scheduled? [facility] Encounter Details Date Type Department Care Team ([facility] st Contact Info) Description 10/30/2023 Orders Only Access Center, [address] *DO NOT REMOVE THIS DEPARTMENT* GUILHERME METCALF [id number] Request, External Referral Fibromyalgia* Allergies Active Allergy Reactions Criticality Noted Date Comments Sulfamethoxazole-Trimethop rim Renal complications High 11/23/2020 Renal failure documented as of this encounter (statuses as of 10/30/2023) Medications Medication Sig Dispensed Refills Start Date End Date Status Gabapentin (NEURONTIN) 800 MG Tablet Take 800 mg by mouth 3 times a day. Active Metformin HCl ER, MOD, 1000 MG TB24 Take 1,000 mg by mouth 2 times a day. Active furosemide (LASIX) 20 MG Tablet Take 40 mg by mouth daily as needed. For edema/fluid retention Active DULoxetine HCl 30 MG CSDR Take by mouth. Active DULoxetine (CYMBALTA) 60 MG CPEP Take 60 mg by mouth daily. Active clopidogrel (PLAVIX) 75 MG Tablet Take 75 mg by mouth daily. Active Levothyroxine Sodium (TIROSINT) 50 MCG Capsule Take 50 mcg by mouth daily first thing in the morning. (at least 30 min prior to breakfast or other meds) Active NovoLOG FlexPen ReliOn 100 UNIT/ML Subcutaneous Solution Pen-injector (insulin aspart) Inject under the skin. Sliding scale Active Levemir FlexTouch 100 UNIT/ML Subcutaneous Solution Pen-injector (Insulin Detemir) Inject 80 Units under the skin every night at bedtime. Active Victoza 18 MG/3ML Subcutaneous Solution Pen-injector (Liraglutide) Inject 1.8 mg under the skin daily. Active traZODone HCl 150 MG Oral Tablet (Desyrel) Take 150 mg by mouth at bedtime. Take 1/2 tab at bedtime as needed Active Aspirin 81 MG Oral Tablet Delayed Release Take 81 mg by mouth daily. Active documented as of this encounter (statuses as of 10/30/2023) Active Problems Problem Noted Date Diagnosed Date Leukocytosis 04/13/2019 documented as of this encounter (statuses as of 10/30/2023) Social History Tobacco Use Types Packs/Day Years Used Date Smoking Tobacco: Every Day Cigarettes 1 44.7 Started: 02/10/1979 Vaporizer Smokeless Tobacco: Never Alcohol Use Standard Drinks/Week Comments Never 0 (1 standard drink = 0.6 oz pur e alcohol) AUDIT-C Answer Date Recorded Frequency of Alcohol Consumption Never 04/13/2019 Average Number of Drinks Not on file 020 Frequency of Binge Drinking Not on file 04/2019 Utilities Answer Date Recorded Do you have trouble paying y our heating, water, or electric bill? (Adult - for ages 18 years and over) Not on file 07/29/2023 Is your family able to pay t he heat, water, or electric bill? (Household - for ages 0-17 years) Not on file 07/29/2023 Does your family have access to good internet? (Household - for ages 0-17 years) Not on file 07/29/2023 Social Connections Answer Date Recorded How often do you feel lonely or isolated from those around you? (Adult - for ages 18 years and over) Not on file 07/29/2023 Sex and Gender Information Value Date Recorded Sex Assigned at Not on file Gender Identity Not on file Sexual Orientation Not on file documented as of this encounter Plan of Treatment Scheduled Referrals Name Type Priority Associated Diagnoses Orde r Schedule ADULT NEUROLOGY REFERRAL OP Referral Within 10 days (routine) Fibromyalgia Ordered: 10/30/2023 Health Maintenance Due Date Last Done Comments Lipid Panel 1965 Depression Screening 1977 HIV Screening 1980 Hepatitis C Screening 05/22/1983 TSH 05/22/1983 DTap/Tdap Vaccines (1 - Tdap) 1984 Hepatitis B Vaccine (1 of 3 - 19+ 3-dose series) 1984 Pap Smear 1986 Cervical Cancer Screening 05/22/1995 HPV/Co-Test 05/22/1995 Mammogram 2005 Cologuard 2010 Colonoscopy 2010 Colorectal Cancer Screening 2010 Fecal Occult Blood Test 2010 Sigmoidoscopy 2010 Lung Cancer Screening 05/22/2015 Zoster Vaccines (1 of 2) 05/22/2015 Pneumococcal Vaccine: Pediatrics (0 to 5 Years) and At-Risk Patients (6 to 64 Years) (2 of 2 - PCV) 08/04/2019 08/03/2018 COVID-19 Vaccine (3 - 2023-2 5 season) 2023 07/20/2020, 06/29/2020 Influenza Vaccine (FLU shot) (#1) 2023 10/23/2020 HPV (Gardasil) Vaccine Aged Out No lo nger eligible based on patient's age to complete this topic MENINGOCOCCAL (MENACTRA/MENVEO) Aged Out No longer eligible b ased on patient's age to complete this topic documented as of this encounter Medical Devices Implanted Type Area Die Barber Device Identifier Shelf Expiration Date Model / Serial / Lot Lens Intraoc 26.0 - [id number] - [id number] Implanted:Qty: 1 on 11/30/2020 by Juan Pablo Zhao MD at [facility] Right: Eye [employer] 09/09/2024 [id number] / [id number] / [id number] Lens Intraoc 24.5 - [id number] - [id number] Implanted:Qty: 1 on 12/12/2020 by Juan Pablo Zhao MD at [facility] Left: Eye [employer] 08/09/2025 [id number] / [id number] / documented as of this encounter Visit Diagnoses Diagnosis Fibromyalgia- Primary Mylagia and myositis, unspecified documented in this encounter 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
[2023-10-31] MEDS: HYDROCODONE/ACETAMOPHEN 5/325MG TAB PO PRN (04:37)
[2023-10-31] MEDS: LEVOTHYROXINE SODIUM 88 MCG TABLET PO SCH (06:36)
[2023-10-31 06:50] LABS: Basophils # (auto) 0.11 K/uL (0.00-0.20); Basophils % (auto) 0.8 %; Eosinophils % (auto) 0.7 %; Hematocrit (blood only) 34.6 % (37.0-47.0); Hemoglobin 10.5 g/dl (12.0-16.0); Immature Granulocytes # (auto) 0.04 K/uL (0.01-0.20); Immature Granulocytes % (auto) 0.3 %; Lymphocytes # (auto) 3.86 K/uL (1.20-3.40); Lymphocytes % (auto) 28.9 %; Mean Corpuscular Hemoglobin 22.3 pg (25.0-34.0); Mean Corpuscular Hgb Conc 30.3 g/dL (32.0-36.0); Mean Corpuscular Volume 73.6 fL (80.0-100.0); Mean Platelet Volume 10.1 fL (9.4-12.4); Monocytes # (auto) 1.04 K/uL (0.11-0.59); Monocytes % (auto) 7.8 %; Neutrophils # (auto) 8.22 K/uL (1.40-6.50); Neutrophils % (auto) 61.5 %; Platelet Count 233 K/uL (130-400); RDW Coefficient of Variation 17.4 % (11.5-14.5); RDW Standard Deviation 45.8 fL (36.4-46.3); White Blood Count 13.37 K/ul (4.8-10.8)
[2023-10-31 07:02] LABS: Albumin Level 2.9 gm/dl (3.4-5.0); BUN Creatinine Ratio 15.5 (10-20); Bilirubin,Total 0.5 mg/dl (0.2-1.0); Calcium 8.1 mg/dl (8.6-10.3); Creatinine Clr Calc Pharmacy 100.6 ml/min; Est GFR (African American) 108.8 ml/min; Est GFR (Non-African American) 93.9 ml/min; Globulin 2.8 gm/dl (2.5-4.0); Magnesium 1.4 mg/dl (1.7-2.4); Potassium 3.1 mmol/L (3.5-5.1); Total Protein 5.7 gm/dl (6.0-8.3)
[2023-10-31] MEDS ORDERED: TOPIRAMATE 50 MG TAB PO SCH (09:00)
[2023-10-31] MEDS ORDERED: PREGABALIN 150 MG CAP PO SCH (09:00)
[2023-10-31] MEDS: POTASSIUM CHLORIDE CRTAB 20 MEQ TABCR PO STA (09:25)
[2023-10-31] MEDS: LANTUS PER UNIT CHARGE SC SCH (09:25)
[2023-10-31] MEDS: CYCLOBENZAPRINE HCL 10 MG TAB PO PRN (09:25)
[2023-10-31] MEDS: ATORVASTATIN 40 MG TAB PO SCH (09:26)
[2023-10-31] MEDS: UMECLIDINIUM BROMIDE 62.5MCG/BLISTER 7 PUFFS/INHALER INH SCH (09:26)
[2023-10-31] MEDS: FLUTICASONE/VILANTEROL 100/25MCG 14 PUFFS/INHALER INH SCH (09:26)
[2023-10-31] MEDS: PANTOprazole 40 MG TAB PO SCH (09:27)
[2023-10-31] MEDS: DULoxetine HCL 60 MG CAP PO SCH (09:27)
[2023-10-31] MEDS: FLUTICASONE PROPIONATE NA SPR 16 GM BTL NAE SCH (09:27)
[2023-10-31] MEDS: EZETIMIBE 10 MG TAB PO SCH (09:27)
[2023-10-31] MEDS: DULoxetine HCL 30 MG CAP PO SCH (09:27)
[2023-10-31] MEDS: CHOLESTYRAMINE LIGHT 4 GM PKT PO SCH (11:19)
--- NOTE | 2023-10-31 12:19 | Hospitalist Progress Note ---
Date of Service October 31, 2023 Assessment & Plan (1) Gastroenteritis: (2) Cutaneous abscess of back excluding buttocks: (3) UTI (urinary tract infection): (4) Burn of left foot: (5) Poorly controlled type 2 diabetes mellitus: (6) Obsessive compulsive disorder: (7) Posttraumatic stress disorder: (8) MDD (major depressive disorder), recurrent, with melancholic features: (9) Generalized anxiety disorder with panic attacks: (10) Dyslipidemia: (11) Severe obstructive sleep apnea-hypopnea syndrome: (12) Coronary artery disease: (13) Heart failure, systolic, due to CAD: (14) Hypertension: Plan Urinary tract infection- Cultures growing gram-negative bacilli, full characterization pending received 1 dose of cefepime in the emergency department. We will reinstitute Gastroenteritis- Stool PCR and C. difficile negative Patient had recently completed 10-day course of doxycycline for left foot burn Placed on cholestyramine 4 g p.o. twice daily, with first dose this evening IV fluids as noted above CT scan notes thickening of small bowel, which could be associated with enteritis Patient has been on MiraLAX in the past, but she denies recent use Skin abscess on back- Status post I&D with cultures sent from the ED UTI, gastroenteritis and skin abscess to be covered with daptomycin IV and cefepime IV Diabetes mellitus- Noted to be poorly controlled Placed on Accu-Cheks with NovoLog SSI Hold empagliflozin Continue glargine but decreased from 130 to 100 units subcu every morning Hypertension/CAD/CHF- Continue atorvastatin, clopidogrel, Zetia PTSD/OCD/generalized anxiety disorder with panic attacks/bipolar disorder/peripheral neuropathy- Continue cyclobenzaprine, duloxetine, hydroxyzine, pregabalin, topiramate and trazodone Admission and Anticipated Discharge Date Admission Date: October 30, 2023 Subjective Patient seen and examined, still complains of lower abdominal pain Review of Systems Review of Systems: All systems reviewed are negative, apart from the ones contained in the history. Physical Exam Physical Exam: The patient is awake, alert and oriented 3, well developed and well nourished, normocephalic and atraumatic, lying in bed and in no acute distress. HEENT--PERRL, EOMI, mucous membranes and oropharynx mildly dry Neck--supple. No JVD. No bruits. Thyroid normal, trachea midline, no adenopathy. Heart--normal S1 and S2. No murmurs, rubs or gallops. Lungs--clear bilaterally, no respiratory distress, no accessory muscle use. Abdomen--normal bowel sounds and soft. Extremities--no cyanosis or clubbing. No edema. Dermatologic--normal skin turgor, normal color, no abnormal lymph nodes, no rash. Neurologic--cranial nerves II through XII grossly intact. Rheumatologic--normal range of motion. Psychiatric--normal affect. Results & Data Results & Data Vital Signs (Past 12 Hours) Vital Signs Temp Pulse Pulse Resp BP BP Pulse Ox 10/31/23 11:49 97.7 F 70 18 109/66 97 10/31/23 08:25 97.7 F 73 18 87/47 L 101/66 97 10/31/23 04:30 98.1 F 73 20 116/70 97 10/31/23 00:30 77 O2 Del Method 10/31/23 11:49 Room Air 10/31/23 08:25 Room Air 10/31/23 04:30 Room Air 10/31/23 00:30 PG Care Time/CCT Total # of Minutes Spent Total Time Spent with Patient: Total time spent is greater than 50% in coordination of care (as documented) at patient's floor/unit and/or counseling patient: Coding Level of Care Code 35854 SUB INP/OBS CARE 2/35MIN Diagnoses Gastroenteritis K52.9 Cutaneous abscess of back excluding buttocks L02.212 UTI (urinary tract infection) N39.0 Burn of left foot T25.022A Poorly controlled type 2 diabetes mellitus E11.65 Obsessive compulsive disorder F42.9 Posttraumatic stress disorder F43.10 MDD (major depressive disorder), recurrent, with melancholic features F33.9 Generalized anxiety disorder with panic attacks F41.1; F41.0 Dyslipidemia E78.5 Severe obstructive sleep apnea-hypopnea syndrome G47.33 Coronary artery disease I25.10 Heart failure, systolic, due to CAD I50.20; I25.10 Hypertension I10 Time Spent (min) 35
[2023-10-31] MEDS: CEFEPIME 2,000 MG in SYRINGE 0 ML IV SCH (14:06)
[2023-10-31] MEDS: INSULIN ASPART PER UNIT CHARGE SC SCH (17:43)
[2023-10-31] MEDS: ACETAMINOPHEN 325 MG TAB PO PRN (20:36)
[2023-10-31] MEDS: CLOPIDOGREL BISULFATE 75 MG TAB PO SCH (20:39)
[2023-11-01] MEDS: HYDROmorphone INJ 0.5 MG/0.5 ML SYR IV ONE (01:56)
[2023-11-01 07:25] LABS: Basophils # (auto) 0.09 K/uL (0.00-0.20); Basophils % (auto) 0.9 %; Hematocrit (blood only) 34.6 % (37.0-47.0); Hemoglobin 10.4 g/dl (12.0-16.0); Immature Granulocytes # (auto) 0.05 K/uL (0.01-0.20); Immature Granulocytes % (auto) 0.5 %; Lymphocytes % (auto) 37.6 %; Mean Corpuscular Hemoglobin 22.4 pg (25.0-34.0); Mean Corpuscular Hgb Conc 30.1 g/dL (32.0-36.0); Mean Corpuscular Volume 74.4 fL (80.0-100.0); Mean Platelet Volume 9.7 fL (9.4-12.4); Monocytes # (auto) 0.69 K/uL (0.11-0.59); Monocytes % (auto) 6.8 %; Neutrophils # (auto) 5.37 K/uL (1.40-6.50); Neutrophils % (auto) 53.2 %; Platelet Count 218 K/uL (130-400); RDW Coefficient of Variation 17.5 % (11.5-14.5); RDW Standard Deviation 46.6 fL (36.4-46.3); Red Blood Count 4.65 M/uL (4.20-5.40)
[2023-11-01 07:48] LABS: Anion Gap 5 (3-11); BUN Creatinine Ratio 18.2 (10-20); Blood Urea Nitrogen 14 mg/dl (6-23); Calcium 8.3 mg/dl (8.6-10.3); Carbon Dioxide 27 mmol/L (21-32); Chloride 110 mmol/L (98-107); Creatinine Clr Calc Pharmacy 92.6 ml/min; Est GFR (African American) 98.6 ml/min; Est GFR (Non-African American) 85.1 ml/min; Glucose 114 mg/dl (70-99(Fasting)); Potassium 3.4 mmol/L (3.5-5.1); Sodium 142 mmol/L (136-145)
[2023-11-01 07:49] LABS: Alanine Aminotransferase < 3 U/L (7-52); Albumin Level 2.9 gm/dl (3.4-5.0); Alkaline Phosphatase 134 U/L (34-104); Aspartate Aminotransferase 11 U/L (13-39); Bilirubin,Total 0.4 mg/dl (0.2-1.0); Magnesium 1.6 mg/dl (1.7-2.4); Total Protein 5.9 gm/dl (6.0-8.3)
[2023-11-01] MEDS: LANTUS PER UNIT CHARGE SC SCH (09:55)
[2023-11-01] MEDS: bisacodyL 10 MG SUPP PR STA ×2 (09:56→17:16)
--- NOTE | 2023-11-01 12:02 | Hospitalist Progress Note ---
Date of Service November 01, 2023 Assessment & Plan (1) Gastroenteritis: (2) Cutaneous abscess of back excluding buttocks: (3) UTI (urinary tract infection): (4) Burn of left foot: (5) Poorly controlled type 2 diabetes mellitus: (6) Obsessive compulsive disorder: (7) Posttraumatic stress disorder: (8) MDD (major depressive disorder), recurrent, with melancholic features: (9) Generalized anxiety disorder with panic attacks: (10) Dyslipidemia: (11) Severe obstructive sleep apnea-hypopnea syndrome: (12) Coronary artery disease: (13) Heart failure, systolic, due to CAD: (14) Hypertension: Plan Urinary tract infection- Cultures growing E coli pansensitive Continue Cefepime here Transition to PO antibiotics upon d/c tomorrow Gastroenteritis- Stool PCR and C. difficile negative Patient had recently completed 10-day course of doxycycline for left foot burn Placed on cholestyramine 4 g p.o. twice daily, with first dose this evening IV fluids as noted above CT scan notes thickening of small bowel, which could be associated with enteritis Patient has been on MiraLAX in the past, but she denies recent use Skin abscess on back- Status post I&D with cultures sent from the ED Cultures growing Corynebacteria, full characterization pending UTI, gastroenteritis and skin abscess to be covered with daptomycin IV and cefepime IV Diabetes mellitus- Noted to be poorly controlled Placed on Accu-Cheks with NovoLog SSI Hold empagliflozin Continue glargine but decreased from 130 to 100 units subcu every morning Hypertension/CAD/CHF- Continue atorvastatin, clopidogrel, Zetia PTSD/OCD/generalized anxiety disorder with panic attacks/bipolar disorder/peripheral neuropathy- Continue cyclobenzaprine, duloxetine, hydroxyzine, pregabalin, topiramate and trazodone Admission and Anticipated Discharge Date Admission Date: October 30, 2023 Subjective Patient seen and examined, feels much better today Review of Systems Review of Systems: All systems reviewed are negative, apart from the ones contained in the history. Physical Exam Physical Exam: The patient is awake, alert and oriented 3, well developed and well nourished, normocephalic and atraumatic, lying in bed and in no acute distress. HEENT--PERRL, EOMI, mucous membranes and oropharynx mildly dry Neck--supple. No JVD. No bruits. Thyroid normal, trachea midline, no adenopathy. Heart--normal S1 and S2. No murmurs, rubs or gallops. Lungs--clear bilaterally, no respiratory distress, no accessory muscle use. Abdomen--normal bowel sounds and soft. Extremities--no cyanosis or clubbing. No edema. Dermatologic--normal skin turgor, normal color, no abnormal lymph nodes, no rash. Neurologic--cranial nerves II through XII grossly intact. Rheumatologic--normal range of motion. Psychiatric--normal affect. Results & Data Results & Data Vital Signs (Past 12 Hours) Vital Signs Temp Pulse Pulse Resp BP Pulse Ox O2 Del Method 11/01/23 11:48 97.5 F L 71 16 115/64 96 Room Air 11/01/23 08:47 Room Air 11/01/23 08:04 97.5 F L 72 16 101/62 96 Room Air 11/01/23 07:52 66 11/01/23 02:40 Room Air 11/01/23 01:31 97.5 F L 78 20 103/66 98 Room Air PG Care Time/CCT Total # of Minutes Spent Total Time Spent with Patient: Total time spent is greater than 50% in coordination of care (as documented) at patient's floor/unit and/or counseling patient: Coding Level of Care Code 84145 SUB INP/OBS CARE 2MIN Diagnoses Gastroenteritis K52.9 Cutaneous abscess of back excluding buttocks L02.212 UTI (urinary tract infection) N30.01 Hematuria presence: with hematuria Urinary tract infection type: acute cystitis Burn of left foot T25.022A Poorly controlled type 2 diabetes mellitus E11.65 Obsessive compulsive disorder F42.9 Posttraumatic stress disorder F43.10 MDD (major depressive disorder), recurrent, with melancholic features F33.9 Generalized anxiety disorder with panic attacks F41.1; F41.0 Dyslipidemia E78.5 Severe obstructive sleep apnea-hypopnea syndrome G47.33 Coronary artery disease I25.10 Heart failure, systolic, due to CAD I50.20; I25.10 Hypertension I10 Time Spent (min) 35 (3) UTI (urinary tract infection) Hematuria presence: with hematuria Urinary tract infection type: acute cystitis Qualified Code(s): N30.01 - Acute cystitis with hematuria
[2023-11-01] MEDS: POLYETHYLENE (MIRALAX) 17 GM PACK PO SCH (12:11)
[2023-11-01 22:01] LABS: Adenovirus F 40/41 PCR Not Detected (NotDetected); Astrovirus PCR Not Detected (NotDetected); Campylobacter PCR Not Detected (NotDetected); Cryptosporidium PCR Not Detected (NotDetected); Cyclospora cayetanensis PCR Not Detected (NotDetected); Entamoeba histolytica PCR Not Detected (NotDetected); Enteroaggregative E.coli(EAEC) Not Detected (NotDetected); Enterotoxigenic E.coli (ETEC) Not Detected (NotDetected); Giardia lamblia PCR Not Detected (NotDetected); Norovirus GI/GII PCR Not Detected (NotDetected); Plesiomonas shigelloides PCR Not Detected (NotDetected); Rotavirus A PCR Not Detected (NotDetected); Salmonella PCR Not Detected (NotDetected); Sapovirus PCR Not Detected (NotDetected); Shiga-like Toxin E.coli (STEC) Not Detected (NotDetected); Shigella/Enteroinvasive E.coli Not Detected (NotDetected); Vibrio cholerae PCR Not Detected (NotDetected); Vibrio species PCR Not Detected (NotDetected); Yersinia enterocolitica PCR Not Detected (NotDetected)
[2023-11-01 22:09] LABS: Enteropathogenic E.coli (EPEC) DETECTED (NotDetected)
[2023-11-02 07:24] VITALS: RESP 18
[2023-11-02 08:11] LABS: Eosinophils # (auto) 0.09 K/uL (0.00-0.50); Eosinophils % (auto) 0.9 %; Hemoglobin 10.3 g/dl (12.0-16.0); Immature Granulocytes # (auto) 0.05 K/uL (0.01-0.20); Immature Granulocytes % (auto) 0.5 %; Lymphocytes # (auto) 2.81 K/uL (1.20-3.40); Lymphocytes % (auto) 28.7 %; Mean Corpuscular Hemoglobin 22.5 pg (25.0-34.0); Mean Corpuscular Hgb Conc 30.3 g/dL (32.0-36.0); Mean Corpuscular Volume 74.4 fL (80.0-100.0); Monocytes # (auto) 0.62 K/uL (0.11-0.59); Monocytes % (auto) 6.3 %; Neutrophils # (auto) 6.11 K/uL (1.40-6.50); Neutrophils % (auto) 62.6 %; Platelet Count 213 K/uL (130-400); RDW Coefficient of Variation 17.4 % (11.5-14.5); RDW Standard Deviation 46.8 fL (36.4-46.3); Red Blood Count 4.57 M/uL (4.20-5.40); White Blood Count 9.78 K/ul (4.8-10.8)
[2023-11-02 08:31] LABS: BUN Creatinine Ratio 15.1 (10-20); Calcium 8.4 mg/dl (8.6-10.3); Creatinine Clr Calc Pharmacy 98.1 ml/min; Est GFR (African American) 105.2 ml/min; Est GFR (Non-African American) 90.8 ml/min; Potassium 3.5 mmol/L (3.5-5.1)
[2023-11-02 08:32] LABS: Alanine Aminotransferase < 3 U/L (7-52); Alkaline Phosphatase 125 U/L (34-104); Anion Gap 5 (3-11); Aspartate Aminotransferase 13 U/L (13-39); BUN Creatinine Ratio 14.7 (10-20); Bilirubin,Total 0.3 mg/dl (0.2-1.0); Blood Urea Nitrogen 11 mg/dl (6-23); Calcium 8.4 mg/dl (8.6-10.3); Carbon Dioxide 27 mmol/L (21-32); Chloride 108 mmol/L (98-107); Creatinine Clr Calc Pharmacy 95.4 ml/min; Est GFR (African American) 101.8 ml/min; Est GFR (Non-African American) 87.9 ml/min; Glucose 129 mg/dl (70-99(Fasting)); Magnesium 1.7 mg/dl (1.7-2.4); Potassium 3.5 mmol/L (3.5-5.1); Sodium 140 mmol/L (136-145)
[2023-11-02 12:22] VITALS: PULSE 71; TEMP 97.5; O2SAT 99
--- NOTE | 2023-11-02 12:47 | Discharge Summary ---
Date of Service November 02, 2023 Admission HPI Per Admitting Provider The patient is a 58-year-old female with a past medical history including burning of left foot, poorly controlled diabetes mellitus type 2, fibromyalgia, generalized anxiety disorder with panic attacks, MDD, chronic HFpEF, peptic ulcer disease, fatty liver, COPD, tobacco abuse, history of marijuana abuse, bipolar disorder, dyslipidemia, OCD, PTSD, CAD, hypertension, severe MICHAEL. The patient presents with symptoms of gastroenteritis, urinary tract infection, and infected skin abscess on her back. Patient underwent an I&D by the ED of cutaneous back lesion. Admission Exam (Per Admitting) Constitutional The patient is awake, alert and oriented 3, well developed and well nourished, normocephalic and atraumatic, lying in bed and in no acute distress. HEENT--PERRL, EOMI, mucous membranes and oropharynx mildly dry Neck--supple. No JVD. No bruits. Thyroid normal, trachea midline, no adenopathy. Heart--normal S1 and S2. No murmurs, rubs or gallops. Lungs--clear bilaterally, no respiratory distress, no accessory muscle use. Abdomen--normal bowel sounds and soft. Extremities--no cyanosis or clubbing. No edema. Dermatologic--normal skin turgor, normal color, no abnormal lymph nodes, no rash. Neurologic--cranial nerves II through XII grossly intact. Rheumatologic--normal range of motion. Psychiatric--normal affect. Discharge Data Consultations 10/30/23 20:56 ED Decision to Admit Stat Hospital Course (1) Gastroenteritis: (2) Cutaneous abscess of back excluding buttocks: (3) UTI (urinary tract infection): (4) Burn of left foot: (5) Poorly controlled type 2 diabetes mellitus: (6) Obsessive compulsive disorder: (7) Posttraumatic stress disorder: (8) MDD (major depressive disorder), recurrent, with melancholic features: (9) Generalized anxiety disorder with panic attacks: (10) Dyslipidemia: (11) Severe obstructive sleep apnea-hypopnea syndrome: (12) Coronary artery disease: (13) Heart failure, systolic, due to CAD: (14) Hypertension: Plan Urinary tract infection- Cultures growing E coli pansensitive Continue Cefepime here Transition to PO Levaquin 500mg for 5 days Gastroenteritis- Stool PCR and C. difficile negative, positive for EPEC (enteropathogenic e coli) Patient had recently completed 10-day course of doxycycline for left foot burn Placed on cholestyramine 4 g p.o. twice daily, with first dose this evening IV fluids as noted above CT scan notes thickening of small bowel, which could be associated with enteritis Patient has been on MiraLAX in the past, but she denies recent use D/c on PO Flagyl 500mg BID for 5 days Skin abscess on back- Status post I&D with cultures sent from the ED Cultures growing Corynebacteria, full characterization pending UTI, gastroenteritis and skin abscess to be covered with daptomycin IV and cefepime IV d/c on PO Levaquin and Flagyl Diabetes mellitus- Noted to be poorly controlled Placed on Accu-Cheks with NovoLog SSI Hold empagliflozin Continue glargine but decreased from 130 to 100 units subcu every morning Hypertension/CAD/CHF- Continue atorvastatin, clopidogrel, Zetia PTSD/OCD/generalized anxiety disorder with panic attacks/bipolar disorder/peripheral neuropathy- Continue cyclobenzaprine, duloxetine, hydroxyzine, pregabalin, topiramate and trazodone Coding Level of Care Code 40761 INP/OBS DISCH >30 MIN Diagnoses Gastroenteritis K52.9 Cutaneous abscess of back excluding buttocks L02.212 UTI (urinary tract infection) N30.01 Hematuria presence: with hematuria Urinary tract infection type: acute cystitis Burn of left foot T25.022A Poorly controlled type 2 diabetes mellitus E11.65 Obsessive compulsive disorder F42.9 Posttraumatic stress disorder F43.10 MDD (major depressive disorder), recurrent, with melancholic features F33.9 Generalized anxiety disorder with panic attacks F41.1; F41.0 Dyslipidemia E78.5 Severe obstructive sleep apnea-hypopnea syndrome G47.33 Coronary artery disease I25.10 Heart failure, systolic, due to CAD I50.20; I25.10 Hypertension I10 Time Spent (min) 35
[2023-11-02 13:06] VITALS: BP 101/67
== END 2023-11-02 14:24 | disposition home or self-care (01) | DRG 603 ==
LOC: ED 15:16 → SUATTDRO 21:55 → INTOOBSV 21:55 → 2W 21:55

== ENCOUNTER 2024-09-06 02:43 | Inpatient (IN) ==
[2024-09-06 03:19] LABS: Hematocrit (blood only) 42.9 % (37.0-47.0); Hemoglobin 13.4 g/dl (12.0-16.0); Immature Granulocytes # (auto) 0.05 K/uL (0.01-0.20); Immature Granulocytes % (auto) 0.4 %; Mean Corpuscular Hemoglobin 24.1 pg (25.0-34.0); Mean Corpuscular Volume 77.2 fL (80.0-100.0); Platelet Count 154 K/uL (130-400); RDW Standard Deviation 63.0 fL (36.4-46.3); Red Blood Count 5.56 M/uL (4.20-5.40); White Blood Count 12.09 K/ul (4.8-10.8)
--- NOTE | 2024-09-06 03:20 | Emergency Department Note ---
History of Present Illness General Chief Complaint: Chest Pain Stated Complaint: Chest Pain Time Seen by Provider: 09/06/24 02:56 History of Present Illness Provider Complaint: chest pain Onset (ago): day(s) 3 Duration: intermittent Onset: during rest Pain Location: substernal and left chest Pain Radiation: none Severity: moderate Quality: + tightness, + heaviness and + other (Patient reports her chest pain feels exactly like when she had her previous heart attack.) Relieved By: + nitroglycerin and + rest Exacerbated By: + exertion Context: no recent illness, no recent surgery, no recent immobilization, no recent travel, no trauma/injury, no new medications or no history of DVT/PE Associated symptoms: + dyspnea; no nausea, no vomiting, no diaphoresis, no palpitations, no fever, no cough or no leg swelling Treatments prior to arrival: aspirin and nitroglycerin (2) Patient reports orthopnea. Patient reports she has been under a lot of stress due to her 's poor health. Home Medications Medication Instructions Recorded Confirmed Type acetaminophen 325 mg tablet 650 mg (2 x 325 mg) PO Q4H PRN 01/26/21 08/11/24 Rx pain #20 tabs compression stockings #1 ea 04/23/22 08/11/24 Rx Auto Titrating CPAP #1 ea 07/12/22 08/11/24 Rx CPAP Supplies #1 ea 07/12/22 08/11/24 Rx Walking Cane #1 ea 08/06/22 08/11/24 Rx glucagon 3 mg/actuation nasal spray 3 mg intranasal ONCE PRN severe 06/03/23 08/11/24 Rx hypoglycemia #2 ea clopidogrel 75 mg tablet (Plavix) 75 mg PO QPM #90 tabs 10/16/23 08/11/24 Rx ezetimibe 10 mg tablet 10 mg PO DAILY #90 tabs 10/16/23 08/11/24 Rx insulin aspart U-100 100 unit/mL 12 unit (0.12 mL) .Route TID #30 mL 10/16/23 08/11/24 Rx (3 mL) subcutaneous pen nitroglycerin 0.4 mg sublingual 0.4 mg sublingual Q5M PRN chest 10/16/23 08/11/24 Rx tablet pain #20 tabs tiotropium bromide 2.5 2 puff inhalation DAILY #4 grams 10/16/23 08/11/24 Rx mcg/actuation mist for inhalation (Spiriva Respimat) evolocumab 140 mg/mL subcutaneous 140 mg subcut Q14D 10/30/23 08/11/24 History pen injector (Repatha SureClick) galcanezumab-gnlm 120 mg/mL 120 mg subcut MONTHLY 10/30/23 08/11/24 History subcutaneous pen injector (Emgality Pen) blood sugar diagnostic (OneTouch #100 ea 11/04/23 08/11/24 Rx Verio test strips) lancets 28 gauge (Advanced Travel #100 ea 11/04/23 08/11/24 Rx Lancets) pen needle, diabetic 31 gauge x #200 ea 11/10/23 08/11/24 Rx 5/16" (BD Ultra-Fine Short Pen Needle) albuterol sulfate 90 mcg/actuation 2 puff inhalation Q4H PRN 12/19/23 08/11/24 Rx aerosol inhaler shortness of breath or wheezing #8.5 grams topiramate 50 mg tablet 50 mg PO BID #180 tabs 05/03/24 08/11/24 Rx varenicline tartrate 1 mg tablet 1 mg PO BID #168 tabs 06/10/24 08/11/24 Rx atorvastatin 80 mg tablet 80 mg PO QAM 07/12/24 08/11/24 History budesonide-formoterol HFA 160 2 puff inhalation QAM 07/12/24 08/11/24 History mcg-4.5 mcg/actuation aerosol inhaler (Symbicort) duloxetine 30 mg capsule,delayed 30 mg PO QAM 07/12/24 08/11/24 History release duloxetine 60 mg capsule,delayed 60 mg PO QAM 07/12/24 08/11/24 History release fluticasone propionate 50 2 spray intranasal DAILY PRN 07/12/24 08/11/24 History mcg/actuation nasal Congestion spray,suspension (Flonase Allergy Relief) insulin glargine U-300 conc 300 130 unit subcut QAM 07/12/24 08/11/24 History unit/mL (3 mL) subcutaneous pen (Toujeo Max U-300 SoloStar) levothyroxine 100 mcg tablet 100 mcg PO QAM 07/12/24 08/11/24 History pantoprazole 40 mg tablet,delayed 40 mg PO QAM 07/12/24 08/11/24 History release polyethylene glycol 3350 17 gram 17 g PO BID 07/12/24 08/11/24 History oral powder packet (Miralax) trazodone 150 mg tablet 150 mg PO HS 07/12/24 08/11/24 History hydroxyzine pamoate 25 mg capsule 25 mg PO Q8H PRN anxiety #270 caps 08/02/24 08/11/24 Rx (Vistaril) empagliflozin 25 mg tablet 25 mg PO QAM #90 tabs 08/05/24 08/11/24 Rx pregabalin 150 mg capsule 150 mg PO BID #60 caps 08/11/24 08/11/24 Rx methocarbamol 500 mg tablet 500 mg PO TID PRN Spasms #30 tabs 08/16/24 Rx Victoza 2-Isidro 0.6 mg/0.1 mL (18 See Rx Instructions subcut 08/19/24 Rx mg/3 mL) subcutaneous pen injector .COMPLEX #6 mL (liraglutide) blood-glucose sensor (FreeStyle #2 ea 08/20/24 Rx Alfonso 3 Plus Sensor device) Allergies Allergy/AdvReac Type Severity Reaction Status Date / Time cephalexin [From Keflex] Allergy Severe kidney Verified 08/11/24 09:17 failure sulfamethoxazole Allergy Severe Went into Verified 08/11/24 09:17 [From Bactrim] Renal Failure trimethoprim [From Bactrim] Allergy Severe Went into Verified 08/11/24 09:17 Renal Failure Past Med/Surg History Problem List (Updated 09/06/24 @ 06:05 by Kal Santiago MD) Non-ST elevation NC (NSTEMI) (Acute) Loss of protective sensation of skin of foot Foreign body (FB) in soft tissue (Acute) Diabetic ulcer of right foot (Acute) Arthralgia Elevated erythrocyte sedimentation rate Elevated C-reactive protein (CRP) Iron deficiency anemia E coli infection Anemia Cutaneous abscess of back excluding buttocks (Acute) Atherosclerosis Class 3 obesity Poorly controlled type 2 diabetes mellitus Fibromyalgia Lung nodule Generalized anxiety disorder with panic attacks MDD (major depressive disorder), recurrent, with melancholic features Fatty infiltration of liver seen on CT scan dated 09/04/2020 Chronic kidney disease COPD (chronic obstructive pulmonary disease) with chronic bronchitis Tobacco abuse Peptic ulcer disease Chronic diastolic CHF (congestive heart failure) Marijuana abuse Dyslipidemia Coronary artery disease (Chronic) Follows with [facility] Heart failure, systolic, due to CAD Hypertension (Chronic) Hypothyroidism Nocturnal hypoxia Restless legs syndrome Severe obstructive sleep apnea-hypopnea syndrome CPAP + 4 LPM O2 Diabetic peripheral neuropathy associated with type 2 diabetes mellitus (Chronic) Asthma rare use PRN inh Insomnia Glaucoma Vitamin D deficiency Migraine headache Posttraumatic stress disorder Obsessive compulsive disorder Bipolar disorder Medical History Hx of diabetic foot ulcer resolved per pt Iron deficiency anemia pt is due to get iron infusion this week at [place], is checking with gasto to see if ok for colonoscopy On anticoagulant therapy Tobacco abuse 1 ppd Diabetes Bipolar disorder OCD (obsessive compulsive disorder) PTSD (post-traumatic stress disorder) Migraine Vitamin D deficiency Glaucoma Insomnia Asthma using res inh daily per pt Diabetic peripheral neuropathy Severe obstructive sleep apnea CPAP + 5 LPM O2 RLS (restless legs syndrome) Nocturnal hypoxia O2 @ 5 lpm HS w/ CPAP Hypothyroidism HTN (hypertension) CAD (coronary artery disease) follows w/ [facility] Dyslipidemia Chronic diastolic (congestive) heart failure PUD (peptic ulcer disease) COPD (chronic obstructive pulmonary disease) CKD (chronic kidney disease) no specialist Fatty infiltration of liver Lower leg edema MDD (major depressive disorder) Anxiety Lung nodules under surveillance Dyspnea Fibromyalgia Atherosclerosis Abscess of back 10/2023- resolved History of COVID-19 (2020) no hosp; resolved Chronic cough Anemia History of ESBL E. coli infection treated for colon infection ~11/2023 - resolved Tenosynovitis of hand History of colon polyps Gastritis History of heart attack (2008) x3, 2008 and 2013 Surgical History History of removal of cyst (04/02/22) FINAL DIAGNOSIS In office procedure Dr. Trujillo A. Skin, back scalp cyst, excision: - Ruptured epidermoid cyst B. Skin, right front scalp cyst, excision: - Focal cyst wall lining (see comment) History of removal of cyst FINAL DIAGNOSIS Scalp, excision: - Heavily inflamed squamous cyst consistent with an epidermal cyst. In office procedure Dr. Trujillo 07/25/2021 History of cataract surgery 11/30/20 R eye and 12/12/20 L eye S/P dilation and curettage History of cardiac catheterization 2008 - [place] - 2 stents 2009 - [place] - 1 stent 2013 - CHF - angioplasty, no stents -- all caths done at [facility] in [place], [place] History of esophagogastroduodenoscopy (EGD) most recent 11/11/19 [facility] History of colonoscopy most recent 11/11/19 [facility] S/P hysterectomy secondary to endometriosis, tubes also removed. Ovaries retained H/O heart artery stent x 3 S/P tonsillectomy H/O hernia repair (03/11/17) History of cholecystectomy History of x 2 History of appendectomy Family History Father Diabetes Coronary heart disease Myocardial infarction Hypertension Mother Diabetes Coronary heart disease Hypertension Stroke Slow to wake up after anesthesia Brother Diabetes Grandmother (Maternal) Diabetes Myocardial infarction Hypertension Grandmother (Paternal) Coronary heart disease Aunt Breast cancer Uterine cancer Paternal Grandfather (Maternal) Colorectal cancer Uncle Colorectal cancer Family/Other Ovarian cancer Multiple cousins Denies family history of Prostate cancer Lung cancer Social History Smoking Status: Heavy tobacco smoker Tobacco Type: Cigarettes Age Started Using Tobacco: 11; packs per day: 1; Cigarettes Per Day: 1 ppd > advised npo; Second Hand Exposure: No; Do You Dip or Chew Tobacco: No; Hx Alcohol Use: No Hx Substance Use: Yes Prescribed Medications: Marijuana Last Used Substance: Days (ago) Last Used Substance Other:: 01/13/24 Substance Use Type Other:: daily use > advised 3 day hold Preferred Language: Jordanian Communication Ability: Effective Visual Impairment: No Limitations Hearing Ability: Normal Accounts Payable Professional Required: No Beliefs That Will Affect Care: None marital status: Current Living Situation: Spouse Current Living Situation Comment: house; 2 story current occupational status: employed How many Children do You have: 2 Feels Safe at Home: Yes Childhood Exposure to Second-Hand Smoke: Yes Diet: diabetic and low carbohydrate Diet Comment: does not follow diet caffeine: No (ice tea) during the past year weight has: other Dental Care, Regularly: Yes Physical Activity Frequency: 1-2 Times per Week Physical Activity Frequency Comment: swimming Seatbelt Use: always Sunscreen Use: No Assistive Devices: CPAP, Glasses and Oxygen - at Night Physical Exam Vital Signs Vital Signs - 24 hr 09/06/24 02:49 09/06/24 02:52 09/06/24 02:54 Temperature 36.6 C Temperature Source Oral Pulse Rate 83 Pulse Rate [Right Finger] 85 Pulse Rhythm Pulse Rhythm [Right Finger] Respiratory Rate 16 Respiratory Effort / Characteristics Respiratory Depth Blood Pressure Blood Pressure [Right Arm] 96/62 L Blood Pressure Mean Blood Pressure Mean [Right Arm] 73 Pulse Oximetry 86 L 92 Oxygen Delivery Method Room Air Nasal Cannula Oxygen Flow Rate 2 Sepsis Recent Fever Within 48 Hours Sepsis New/Unexplained Change in Mental Status Sepsis Action Taken by Nursing 09/06/24 03:13 09/06/24 03:13 09/06/24 03:13 Temperature 36.7 C Temperature Source Oral Pulse Rate 84 84 Pulse Rate [Right Finger] Pulse Rhythm Regular Pulse Rhythm [Right Finger] Respiratory Rate 18 18 Respiratory Effort / Characteristics Non-Labored Non-Labored Respiratory Depth Normal Normal Blood Pressure 96/62 L Blood Pressure [Right Arm] Blood Pressure Mean 73 Blood Pressure Mean [Right Arm] Pulse Oximetry 93 93 Oxygen Delivery Method Nasal Cannula Nasal Cannula Nasal Cannula Oxygen Flow Rate 2 2 2 Sepsis Recent Fever Within 48 Hours No Sepsis New/Unexplained Change in Mental Status No Sepsis Action Taken by Nursing No Action Required 09/06/24 03:36 09/06/24 03:45 09/06/24 04:11 Temperature Temperature Source Pulse Rate Pulse Rate [Right Finger] 80 76 77 Pulse Rhythm Pulse Rhythm [Right Finger] Regular Regular Regular Respiratory Rate 16 16 16 Respiratory Effort / Characteristics Non-Labored Respiratory Depth Normal Normal Normal Blood Pressure Blood Pressure [Right Arm] 81/53 L 104/62 127/75 Blood Pressure Mean Blood Pressure Mean [Right Arm] 62 76 92 Pulse Oximetry 93 95 94 Oxygen Delivery Method Nasal Cannula Nasal Cannula Nasal Cannula Oxygen Flow Rate 1 1 1 Sepsis Recent Fever Within 48 Hours Sepsis New/Unexplained Change in Mental Status Sepsis Action Taken by Nursing 09/06/24 05:00 Temperature Temperature Source Pulse Rate Pulse Rate [Right Finger] 69 Pulse Rhythm Pulse Rhythm [Right Finger] Regular Respiratory Rate 14 Respiratory Effort / Characteristics Non-Labored Respiratory Depth Normal Blood Pressure Blood Pressure [Right Arm] 98/59 L Blood Pressure Mean Blood Pressure Mean [Right Arm] 72 Pulse Oximetry 93 Oxygen Delivery Method Nasal Cannula Oxygen Flow Rate 1 Sepsis Recent Fever Within 48 Hours Sepsis New/Unexplained Change in Mental Status Sepsis Action Taken by Nursing Physical Exam GENERAL: oriented to person, place, and time. appears well-developed and well- nourished. HENT: Exam performed. - Head: Normocephalic and atraumatic. EYES: Conjunctivae and EOM are normal. Right eye exhibits no discharge. Left eye exhibits no discharge. No scleral icterus. NECK: Normal range of motion. Neck supple. No JVD present. CV: Normal rate, regular rhythm, normal heart sounds and intact distal pulses. There is no peripheral edema. Palpable radial pulses bue. PULM/CHEST: Inspiratory rales bilaterally. ABD: The abdomen is soft. There is no tenderness. NEURO: Motor and sensation grossly intact. SKIN: Skin is warm and dry. He is not diaphoretic. PSYCH: normal mood and affect. Behavior is normal. Judgment and thought content normal. Course Course 0256: The patient was evaluated in room B9. A complete history and physical exam was performed Cardiac monitoring: An order was placed for continuous cardiac monitoring. The monitor shows a rate of 70 with sinus rhythm interpreted by tn 0555: Vital signs stable on supplemental oxygen via nasal cannula. Labs showed a high-sensitivity troponin of 87.1. Delta troponin went up to 210.5. CTA chest abdomen pelvis negative for dissection. Patient to be started on heparin drip for NSTEMI. Discussed with cardiology Dr. Rivera who agrees. Dr. Bonner [facility] Hospitalist is aware the patient also agrees with heparin. Administered Medications Discontinued Medications Sodium Chloride (Nss) 500 mls @ 999 mls/hr IV .Q31M ONE Stop: 09/06/24 04:02 Last Infusion: 09/06/24 04:36 Dose: Infused Documented By: Admin: 09/06/24 03:34 Dose: 999 mls/hr Documented By: KRISTIAN Sodium Chloride (Nss) 500 mls @ 999 mls/hr IV .Q31M ONE Stop: 09/06/24 04:11 Last Infusion: 09/06/24 04:37 Dose: Infused Documented By: Admin: 09/06/24 03:47 Dose: 999 mls/hr Documented By: KRISTIAN Ioversol (Optiray 320 125ml) 125 ml IV ONCE ONE Stop: 09/06/24 03:58 Last Admin: 09/06/24 03:57 Dose: 118 ml Documented By: CHING Morphine Sulfate (Morphine Sulfate 2 Mg/Ml Carp) 2 mg IV NOW STA Stop: 09/06/24 04:17 Last Admin: 09/06/24 04:19 Dose: 2 mg Documented By: KRISTIAN Medical Decision Making Laboratory Data Attestation: I reviewed the patient's lab results. 09/06/24 03:00 09/06/24 03:00 Labs: Lab Results 09/06/24 09/06/24 09/06/24 Range/Units 03:00 03:00 03:08 WBC 12.09 H (4.8-10.8) K/ul RBC 5.56 H (4.20-5.40) M/uL Hgb 13.4 (12.0-16.0) g/dl POC Hgb 15.0 (12.0-16.0) g/dl Hct 42.9 (37.0-47.0) % POC Hct 44 (37-47) % MCV 77.2 L (80.0-100.0) fL MCH 24.1 L (25.0-34.0) pg MCHC 31.2 L (32.0-36.0) g/dL RDW Std Deviation 63.0 H (36.4-46.3) fL RDW Coeff of Caitlin 23.3 H (11.5-14.5) % Plt Count 154 (130-400) K/uL MPV 10.3 (9.4-12.4) fL Immature Gran % (Auto) 0.4 % Neut % (Auto) 69.1 % Lymph % (Auto) 20.4 % [place] % (Auto) 8.3 % Eos % (Auto) 0.7 % Baso % (Auto) 1.1 % Neut # (Auto) 8.36 H (1.40-6.50) K/uL Lymph # (Auto) 2.47 (1.20-3.40) K/uL [place] # (Auto) 1.00 H (0.11-0.59) K/uL Eos # (Auto) 0.08 (0.00-0.50) K/uL Baso # (Auto) 0.13 (0.00-0.20) K/uL Immature Gran # (Auto) 0.05 (0.01-0.20) K/uL Polychromasia 1+ Anisocytosis Present VBG pH 7.31 L (7.36-7.41) VBG pCO2 44 (38-50) mmHg VBG pO2 102 mmHg VBG HCO3 22 mmol/L VBG O2 Saturation 98.0 % VBG Base Excess -4.1 mEq/L POC Sodium 138 (135-144) mmol/L Sodium 136 (136-145) mmol/L POC Potassium 4.2 (3.3-5.0) mmol/L Potassium 4.2 (3.5-5.1) mmol/L POC Chloride 103 (101-112) mmol/L Chloride 104 (98-107) mmol/L Carbon Dioxide 25 (21-32) mmol/L POC Total CO2 22 L (24-31) mmol/L Anion Gap 7 (3-11) POC Anion Gap 18.0 (16-25) mmol/L POC BUN 20 H (7-18) mg/dl BUN 18 (6-23) mg/dl Creatinine 1.14 (0.6-1.2) mg/dl POC Creatinine 1.2 (0.6-1.3) mg/dl Est Cr Clr Drug Dosing 62.6 ml/min eGFR 55.45 BUN/Creatinine Ratio 15.8 (10-20) Glucose 165 H (70-99(Fasting)) mg/dl POC Glucose (other) 162 H (70-99) mg/dl Calcium 8.5 L (8.6-10.3) mg/dl POC Ioniz Calcium Angie 1.19 (1.12-1.32) mmol/l Troponin I High Sens 87.1 H* Cancelled (0-14) pg/ml B-Natriuretic Peptide 9 (0-100) pg/ml Lipase 27 (11-82) U/L // Range/Units 04:55 WBC (4.8-10.8) K/ul RBC (4.20-5.40) M/uL Hgb (12.0-16.0) g/dl POC Hgb (12.0-16.0) g/dl Hct (37.0-47.0) % POC Hct (37-47) % MCV (80.0-100.0) fL MCH (25.0-34.0) pg MCHC (32.0-36.0) g/dL RDW Std Deviation (36.4-46.3) fL RDW Coeff of Caitlin (11.5-14.5) % Plt Count (130-400) K/uL MPV (9.4-12.4) fL Immature Gran % (Auto) % Neut % (Auto) % Lymph % (Auto) % [place] % (Auto) % Eos % (Auto) % Baso % (Auto) % Neut # (Auto) (1.40-6.50) K/uL Lymph # (Auto) (1.20-3.40) K/uL [place] # (Auto) (0.11-0.59) K/uL Eos # (Auto) (0.00-0.50) K/uL Baso # (Auto) (0.00-0.20) K/uL Immature Gran # (Auto) (0.01-0.20) K/uL Polychromasia Anisocytosis VBG pH (7.36-7.41) VBG pCO2 (38-50) mmHg VBG pO2 mmHg VBG HCO3 mmol/L VBG O2 Saturation % VBG Base Excess mEq/L POC Sodium (135-144) mmol/L Sodium (136-145) mmol/L POC Potassium (3.3-5.0) mmol/L Potassium (3.5-5.1) mmol/L POC Chloride (101-112) mmol/L Chloride (98-107) mmol/L Carbon Dioxide (21-32) mmol/L POC Total CO2 (24-31) mmol/L Anion Gap (3-11) POC Anion Gap (16-25) mmol/L POC BUN (7-18) mg/dl BUN (6-23) mg/dl Creatinine (0.6-1.2) mg/dl POC Creatinine (0.6-1.3) mg/dl Est Cr Clr Drug Dosing ml/min eGFR BUN/Creatinine Ratio (10-20) Glucose (70-99(Fasting)) mg/dl POC Glucose (other) (70-99) mg/dl Calcium (8.6-10.3) mg/dl POC Ioniz Calcium Angie (1.12-1.32) mmol/l Troponin I High Sens 210.5 H* D (0-14) pg/ml B-Natriuretic Peptide (0-100) pg/ml Lipase (11-82) U/L Imaging Data Chest x-ray: Attestation: I personally reviewed and interpreted this imaging study as follows: My impression: Chest x-ray negative. Airway clear. No pneumothorax. No consolidation. No cardiomegaly or cephalization.. No free air under the diaphragm. No fractures of the skeletal structures. Radiologist's impression: EXAM: XR chest 1V portable CLINICAL HISTORY: Chest pain, nonspecific TECHNIQUE: An X-ray image of the chest is obtained in AP projection. COMPARISON: Prior CR, March 15, 2022, was reviewed. FINDINGS: Pulmonary Parenchyma: Lungs are clear bilaterally. No evidence of consolidation, collapse, or focal opacities. No pulmonary nodules are identified. No evidence of pleural effusion or pleural thickening. Heart and Mediastinum: Heart size and shape are normal. No mediastinal widening or masses. No hilar or mediastinal lymphadenopathy. Bony Thorax: Bony thorax appears intact without fractures or deformities. Soft Tissues: Soft tissues overlying the chest wall are unremarkable. Chest leads are seen IMPRESSION: 1. Normal chest X-ray. No acute cardiopulmonary abnormalities are identified. 2. No interval changes. Electronically signed by Sathish Navas 09-06-2024 03:[address] scan - chest: Radiologist's impression: EXAM: CT angio chest dissec wo/w con CLINICAL HISTORY: ro dissection TECHNIQUE: Contiguous axial images were obtained from the neck base through the upper abdomen without and with intravenous administration of iodinated contrast material. Angiographic images were processed, 3D MIP images were acquired for interpretation. If IV contrast material had not been administered, the likelihood of detecting abnormalities relevant to the patient's condition would have been substantially decreased. Coronal and sagittal 3-D MIPs were likewise performed and indicated to increase the sensitivity of detectin diffuse clinically relevant pathology. CT scan was performed according to ALARA (as low as reasonable achievable). COMPARISON: 17:55:08 SURGICAL ASSIST. FINDINGS: Atherosclerotic changes with multifocal plaques are noted involving descending thoracic aorta without hemodynamically significant stenosis. Diffuse ground-glass hase with subpleural atelectasis are noted involving dependent portion of both lower lobes - suggest possibility of due to insufficient inspiration. Adequate contrast bolus without evidence of pulmonary embolism. The central airways are patent. Rest of lungs are clear. No pleural effusion. The heart, Rest of aorta, and pulmonary arteries are of normal size and configuration. There are no appreciable coronary artery and aortic atherosclerotic calcifications. No pericardial effusion is identified. The thyroid is unremarkable. No mediastinal, hilar, or axillary lymphadenopathy is noted. No suspicious lytic or sclerotic osseous lesions are identified. IMPRESSION: 1. No evidence of pulmonary embolism. 2. Diffuse ground-glass hase with subpleural atelectasis are noted involving dependent portion of both lower lobes - suggest possibility of due to insufficient inspiration.-new. 3. No obvious dissection or aneurysm. 4. Atherosclerotic changes with multifocal plaques are noted involving descending thoracic aorta without hemodynamically significant stenosis.-stable. Electronically signed by Jayden Johnson 09-06-2024 04:31 AM Dictated: 09/06/24411 CT scan - abdomen: Radiologist's impression: EXAM: CT angio abdomen pelvis w con CLINICAL HISTORY: ro dissection TECHNIQUE: Contrast enhanced thin slice CT angiography scan of the abdominal aorta was performed with intravenous contrast. Angiographic images were processed, 3D MIP images were acquired for interpretation. Contiguous axial images were obtained. Reformatted coronal and sagittal images were also reviewed. If IV contrast material had not been administered, the likelihood of detecting abnormalities relevant to the patients condition would have been substantially decreased. CT scan was performed according to ALARA (as low as reasonable achievable). COMPARISON: 17:51:59 SURGICAL ASSIST . FINDINGS: Diffuse atherosclerotic calcification is noted involving aorta iliac arteries. Abdominal aorta is normal in course, calibre and opacification. Origin of coeliac artery, superior mesenteric artery , bilateral main renal and lumbar arteries are normal with no hemodynamically significant ostial stenosis noted. Bilateral common, external and internal iliac arteries are normal in course, caliber and opacification. The liver appears relatively smaller in size and shows hypertrophied caudate lobe. It shows mild heterogeneous parenchyma with irregular nodular surface. Portal vein appears dilated with multiple collaterals are noted adjacent to the perigastric/peripancreatic space - suggestive of portal hypertension. The spleen appears enlarged in size measures about 15 cm Solid abdominal organs including pancreas and bilateral kidneys reveal no significant abnormality. Bowel loops are grossly unremarkable. No evidence of ascites. IMPRESSION: 1. Cirrhosis of liver with portal hypertension-stable. 2. Splenomegaly.-stable. 3. Atherosclerotic changes are noted involving aorta and iliac arteries.-stable. 4. No obvious aortic dissection or aneurysm. 5. No other new interval abnormality since prior study. Electronically signed by Jayden Johnson 09-06-2024 05:12 AM Dictated: 09/06/24 [id number] ECG Data Attestation: I personally reviewed and interpreted this ECG as follows: Rate (beats per minute): 75 Rhythm: normal sinus Findings: no ST depression, no ST elevation or no prolonged QT [facility] Narrative 0256: The patient was evaluated in room B9. A complete history and physical exam was performed Cardiac monitoring: An order was placed for continuous cardiac monitoring. The monitor shows a rate of 70 with sinus rhythm interpreted by me 0555: Vital signs stable on supplemental oxygen via nasal cannula. Labs showed a high-sensitivity troponin of 87.1. Delta troponin went up to 210.5. CTA chest abdomen pelvis negative for dissection. Patient to be started on heparin drip for NSTEMI. Discussed with cardiology Dr. Rivera who agrees. Dr. Bonner [facility] hospitalist is aware the patient also agrees with heparin. Impression & Plan Non-ST elevation NC (NSTEMI) Critical Care Time Critical Care Time: Yes Total Critical Care Time: 64 I have personally spent greater than 64 minutes of critical care time in the direct management of this patient. This includes bedside care, interpretation of diagnostic studies, and testing, discussion with consultants, patient, and family members, and other required patient management activities. This 64 minutes is in excess of all separately billable procedures. Discharge Plan Visit Data Chief Complaint: Chest Pain Stated Complaint: Chest Pain ED Provider: Kal Santiago Discharge Problem: Non-ST elevation NC (NSTEMI) Patient Disposition: Admitted As Inpatient Condition: Serious Forms Stand Alone Forms: My [facility] Prescriptions Prescriptions: No Action (DME) compression stockings See Rx Instructions .Route .MEDSUPPLY Qty: 1 5RF Rx Instructions: 20-30 [facility]; (DME) CPAP Supplies Misc See Rx Instructions .ROUTE .MEDSUPPLY Qty: 1 0RF Rx Instructions: CPAP supplies (DME) Auto Titrating CPAP Misc See Rx Instructions .ROUTE .MEDSUPPLY Qty: 1 0RF Rx Instructions: 5-15 cm h20 (DME) Walking Cane Misc See Rx Instructions .Route Qty: 1 0RF Rx Instructions: As directed due to Neuropathy. (DME) pen needle, diabetic [BD Ultra-Fine Short Pen Needle] 31 gauge x 5/16" needle See Rx Instructions .ROUTE .MEDSUPPLY Qty: 200 5RF Rx Instructions: Inject 4 times daily topiramate 50 mg tablet 50 mg PO BID Qty: 180 1RF varenicline tartrate 1 mg tablet 1 mg PO BID Qty: 168 0RF Patient Comments: has not been taking 07/12/24 hydroxyzine pamoate [Vistaril] 25 mg capsule 25 mg PO Q8H PRN (Reason: anxiety) Qty: 270 0RF empagliflozin 25 mg tablet 25 mg PO QAM Qty: 90 1RF methocarbamol 500 mg tablet 500 mg PO TID PRN (Reason: Spasms) Qty: 30 0RF liraglutide [Victoza 2-Isidro] 0.6 mg/0.1 mL (18 mg/3 mL) pen injector See Rx Instructions subcut .COMPLEX Qty: 6 2RF Rx Instructions: inject 0.6mg subcutaneously once daily x 7 days; then 1.2mg daily (DME) FreeStyle Alfonso 3 Plus Sensor Device See Rx Instructions .Route Qty: 2 4RF Rx Instructions: Change sensor every 15 days glucagon 3 mg/actuation spray,non-aerosol 3 mg intranasal ONCE PRN (Reason: severe hypoglycemia) Qty: 2 1RF Rx Instructions: Pt states she may need new script for this albuterol sulfate 90 mcg/actuation HFA aerosol inhaler 2 puff INH Q4H PRN (Reason: shortness of breath or wheezing) Qty: 8.5 2RF cyanocobalamin (vitamin B-12) 1,000 mcg/mL solution 1,000 mcg IM ONCE Qty: 1 0RF (DME) OneTouch Verio test strips Strip See Rx Instructions .Route Qty: 100 5RF Rx Instructions: Test glucose up to 3 times daily (DME) lancets [Advanced Travel Lancets] 28 gauge misc See Rx Instructions .Route Qty: 100 2RF Rx Instructions: As directed pregabalin 150 mg capsule 150 mg PO BID Qty: 60 0RF clopidogrel [Plavix] 75 mg tablet 75 mg PO QPM Qty: 90 1RF ezetimibe 10 mg tablet 10 mg PO DAILY Qty: 90 2RF Patient Comments: not taking 07/12/24 insulin aspart U-100 100 unit/mL (3 mL) insulin pen 12 unit .ROUTE TID Qty: 30 5RF Rx Instructions: 12 units three times a day before meals + SS nitroglycerin 0.4 mg tablet, sublingual 0.4 mg sublingual Q5M PRN (Reason: chest pain) Qty: 20 2RF Rx Instructions: do not exceed 3 doses per episode Spiriva Respimat 2.5 mcg/actuation mist 2 puff inhalation DAILY Qty: 4 2RF acetaminophen 325 mg Tablet 650 mg PO Q4H PRN (Reason: pain) Qty: 20 0RF Repatha SureClick 140 mg/mL pen injector 140 mg subcut Q14D Patient Comments: last dose 07/06/24 Emgality Pen 120 mg/mL pen injector 120 mg subcut MONTHLY Patient Comments: not taking at present, ins will not cover 07/12/24 atorvastatin 80 mg tablet 80 mg PO QAM polyethylene glycol 3350 [Miralax] 17 gram powder in packet 17 g PO BID levothyroxine 100 mcg tablet 100 mcg PO QAM pantoprazole 40 mg tablet,delayed release (DR/EC) 40 mg PO QAM trazodone 150 mg tablet 150 mg PO HS fluticasone propionate [Flonase Allergy Relief] 50 mcg/actuation spray,suspension 2 spray intranasal DAILY PRN (Reason: Congestion) Rx Instructions: administer into each nostril duloxetine 30 mg capsule,delayed release(DR/EC) 30 mg PO QAM Rx Instructions: Take 30mg w/ 60mg to equal 90mg by mouth every morning duloxetine 60 mg capsule,delayed release(DR/EC) 60 mg PO QAM Rx Instructions: Take 60mg w/ 30mg to equal 90mg by mouth every morning budesonide-formoterol [Symbicort] 160-4.5 mcg/actuation HFA aerosol inhaler 2 puff inhalation QAM insulin glargine U-300 conc [Toujeo Max U-300 SoloStar] 300 unit/mL (3 mL) insulin pen 130 unit subcut QAM Rx Instructions: Inject 130 units subcutaneously once daily for long-acting insulin coverage/QAM Referrals Referrals: Swati Berger DO [Primary Care Provider] -
[2024-09-06 03:21] LABS: Base Excess VBG -4.1 mEq/L; HCO3 VBG 22 mmol/L; Oxygen Saturation VBG 98.0 %; PCO2 VBG 44 mmHg (38-50); PO2 VBG 102 mmHg; pH VBG 7.31 (7.36-7.41)
[2024-09-06] MEDS: SODIUM CHLORIDE 0.9% 500 ML IV ONE ×2 (03:34→03:47)
[2024-09-06 03:37] LABS: Anion Gap 7.0 (3-11); Blood Urea Nitrogen 18.0 mg/dl (6-23); Calcium 8.5 mg/dl (8.6-10.3); Carbon Dioxide 25.0 mmol/L (21-32); Chloride 104.0 mmol/L (98-107); Creatinine Clr Calc Pharmacy 62.6 ml/min; Glucose 165.0 mg/dl (70-99(Fasting)); Lipase 27.0 U/L (11-82); Potassium 4.2 mmol/L (3.5-5.1); Sodium 136.0 mmol/L (136-145)
--- NOTE | 2024-09-06 03:53 | XRay Report ---
EXAM: XR chest 1V portable CLINICAL HISTORY: Chest pain, nonspecific TECHNIQUE: An X-ray image of the chest is obtained in AP projection. COMPARISON: Prior CR, March 15, 2022, was reviewed. FINDINGS: Pulmonary Parenchyma: Lungs are clear bilaterally. No evidence of consolidation, collapse, or focal opacities. No pulmonary nodules are identified. No evidence of pleural effusion or pleural thickening. Heart and Mediastinum: Heart size and shape are normal. No mediastinal widening or masses. No hilar or mediastinal lymphadenopathy. Bony Thorax: Bony thorax appears intact without fractures or deformities. Soft Tissues: Soft tissues overlying the chest wall are unremarkable. Chest leads are seen IMPRESSION: 1. Normal chest X-ray. No acute cardiopulmonary abnormalities are identified. 2. No interval changes. Electronically signed by Sathish Navas 09-06-2024 03:51 AM
[2024-09-06] MEDS: OPTIRAY 320 125ml IV ONE (03:57)
[2024-09-06 04:06] LABS: Anisocytosis Present; Polychromasia 1+
[2024-09-06] MEDS: MoRPHine SULFATE 2 MG/ML CARP IV STA ×2 (04:19→06:28)
--- NOTE | 2024-09-06 04:31 | CT Scan Report ---
EXAM: CT angio chest dissec wo/w con CLINICAL HISTORY: ro dissection TECHNIQUE: Contiguous axial images were obtained from the neck base through the upper abdomen without and with intravenous administration of iodinated contrast material. Angiographic images were processed, 3D MIP images were acquired for interpretation. If IV contrast material had not been administered, the likelihood of detecting abnormalities relevant to the patient's condition would have been substantially decreased. Coronal and sagittal 3-D MIPs were likewise performed and indicated to increase the sensitivity of detectin diffuse clinically relevant pathology. CT scan was performed according to ALARA (as low as reasonable achievable). 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 FINDINGS: Atherosclerotic changes with multifocal plaques are noted involving descending thoracic aorta without hemodynamically significant stenosis. Diffuse ground-glass hase with subpleural atelectasis are noted involving dependent portion of both lower lobes - suggest possibility of due to insufficient inspiration. Adequate contrast bolus without evidence of pulmonary embolism. The central airways are patent. Rest of lungs are clear. No pleural effusion. The heart, Rest of aorta, and pulmonary arteries are of normal size and configuration. There are no appreciable coronary artery and aortic atherosclerotic calcifications. No pericardial effusion is identified. The thyroid is unremarkable. No mediastinal, hilar, or axillary lymphadenopathy is noted. No suspicious lytic or sclerotic osseous lesions are identified. IMPRESSION: 1. No evidence of pulmonary embolism. 2. Diffuse ground-glass hase with subpleural atelectasis are noted involving dependent portion of both lower lobes - suggest possibility of due to insufficient inspiration.-new. 3. No obvious dissection or aneurysm. 4. Atherosclerotic changes with multifocal plaques are noted involving descending thoracic aorta without hemodynamically significant stenosis.-stable. Electronically signed by Jayden Johnson 09-06-2024 04:31 AM
--- NOTE | 2024-09-06 05:12 | CT Scan Report ---
EXAM: CT angio abdomen pelvis w con CLINICAL HISTORY: ro dissection TECHNIQUE: Contrast enhanced thin slice CT angiography scan of the abdominal aorta was performed with intravenous contrast. Angiographic images were processed, 3D MIP images were acquired for interpretation. Contiguous axial images were obtained. Reformatted coronal and sagittal images were also reviewed. If IV contrast material had not been administered, the likelihood of detecting abnormalities relevant to the patients condition would have been substantially decreased. CT scan was performed according to ALARA (as low as reasonable achievable). 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 FINDINGS: Diffuse atherosclerotic calcification is noted involving aorta iliac arteries. Abdominal aorta is normal in course, calibre and opacification. Origin of coeliac artery, superior mesenteric artery , bilateral main renal and lumbar arteries are normal with no hemodynamically significant ostial stenosis noted. Bilateral common, external and internal iliac arteries are normal in course, caliber and opacification. The liver appears relatively smaller in size and shows hypertrophied caudate lobe. It shows mild heterogeneous parenchyma with irregular nodular surface. Portal vein appears dilated with multiple collaterals are noted adjacent to the perigastric/peripancreatic space - suggestive of portal hypertension. The spleen appears enlarged in size measures about 15 cm Solid abdominal organs including pancreas and bilateral kidneys reveal no significant abnormality. Bowel loops are grossly unremarkable. No evidence of ascites. IMPRESSION: 1. Cirrhosis of liver with portal hypertension-stable. 2. Splenomegaly.-stable. 3. Atherosclerotic changes are noted involving aorta and iliac arteries.-stable. 4. No obvious aortic dissection or aneurysm. 5. No other new interval abnormality since prior study. Electronically signed by Jayden Johnson 09-06-2024 05:12 AM
--- NOTE | 2024-09-06 05:43 | History & Physical Report ---
Date of Service September 06, 2024 Assessment & Plan (1) Non-ST elevation [place] (NSTEMI): (2) Hypocalcemia: (3) Type 2 diabetes mellitus: Plan 59-year-old female PMHx T2DM with peripheral neuropathy, COPD/asthma, MICHAEL on CPAP, tobacco abuse, anxiety/depression/bipolar/insomnia, diastolic heart failure, CAD, dyslipidemia, HTN, hypothyroidism, fibromyalgia, CKD and peptic ulcer disease presenting for chest pain. ED evaluation reveals CBC with leukocytosis 12.09, stable H&H; VBG with pH 7.31; CMP glucose 165; troponin 87.1, pending repeat; lipase 27; CXR WNL; CTAP cirrhosis with portal hypertension, splenomegaly, atherosclerotic changes of aorta and iliac arteries, no acute findings; chest CTA no evidence of PE, diffuse groundglass haze with subpleural atelectasis, atherosclerotic changes of descending thoracic aorta; EKG NSR at 75 bpm.; Received 1L NSS and morphine 2 mg IV in ED. #Chest pain/NSTEMI History of CAD with stent placement 2008 and 2009. Also history of diastolic heart failure, dyslipidemia, HTN. Currently chest pain-free. On plavix, mayuri rvastatin, Victoza. No longer on ezetimibe. Suspect this could be component of ACS, supported by patient's history as well as his increasing troponin at time of admission. EKG remains nonischemic in nature. - CBC with leukocytosis 12.09, stable H&H; BMP WNL; lipase WNL - CBC am - Troponin 87.1, 210.5 on repeat; trend q4hr - PT/INR pending - EKG NSR at 75 bpm and without ischemic changes - CXR WNL - CTAP reveals atherosclerotic changes of aorta and iliac arteries but no acute findings - Chest CTA without evidence of PE, does show diffuse groundglass haze with subpleural atelectasis and atherosclerotic changes of descending aorta - Echo 2022 with EF 65%; pending repeat - Lipid panel pending - pt does take atorvastatin 80 mg and Repatha -- continue atorvastatin - Continue Plavix - Morphine prn severe pain - Heparin drip started - Cardiology consulted -- appreciate input + recs #Hypocalcemia Asymptomatic currently. Mildly decreased. - Ca 8.5, pending albumin - Consider calcium carbonate po BID if WNL albumin/WNL corrected Ca - Trend Ca as appropriate #T2DM H/o DMT2; Home regimen includes Jardiance, insulin aspart 12U TID + SSI, Toujeo 130U daily, pregabalin for neuropathy. - Glucose at arrival 165; Most recent A1C 03/2024 @ 6.9% - Hold Jardiance, hold Victoza (? formulary), hold home insulin for full glycemic control while inpatient - Lantus 50U BID to start -- adjust as appropriate - SSI with target BSG range 110-150mg/dL, CF 10, carb ratio 5 - BSG ACHS - Pharm glycemic management consult placed, appreciate assistance - Adjust regimen as needed #COPD/asthma/MICHAEL on CPAP/tobacco use- No evidence of exacerbation; Previously followed with pulm; VBGs revealed pH of 7.31, CXR without acute findings, chest CTA reveals diffuse groundglass haze with subpleural atelectasis; CPAP HS; Albuterol, Symbicort, Spiriva - continue medications #Anxiety/depression/bipolar/insomnia- Stable; duloxetine, hydroxyzine pamoate prn, trazodone - continue #Migraines- Stable, follows with neuro; Previously on Emgality (last dose 07/06/2024) but insurance no longer covers; Topiramate - continue topiramate #Hypothyroidism- Levothyroxine - continue #PUD/Gastritis- Pantoprazole - continue #FM- Duloxetine, pregabalin - continue Dispo: Admit, PCU VTE Prophylaxis: Heparin started, treatment dose This document was dictated utilizing [employer]. Please excuse any grammatical errors that may be secondary to use of this software. Admission and Anticipated Discharge Date Admission Date: 09/06/2024 History of Present Illness Chief Complaint: Chest pain Primary Care Provider: Swati Berger DO 59-year-old female PMHx T2DM with peripheral neuropathy, COPD/asthma, MICHAEL on CPAP, tobacco abuse, anxiety/depression/bipolar/insomnia, diastolic heart failure, CAD, dyslipidemia, HTN, hypothyroidism, fibromyalgia, CKD and peptic ulcer disease presenting for chest pain. History of cardiac stents in 2008 and 2009. Received 345 mg aspirin, 2 doses of nitroglycerin, oxygen, and fentanyl via EMS. The evening [employer] she started to have onset of left sided chest pressure/pain that radiated into her back. She tried to go to sleep, but states that the pain was consistent and did not let up. States that at its worst the pain was rated a >10 out of 10 on the pain scale, and is currently a 7 out of 10 the pain scale. States that it is an achy sensation that radiates through to her back. She denies any radiation to her arm, right side of her chest, neck, or jaw. She states this feels identical to her prior cardiac events. She does admit to some dyspnea specifically when laying flat or with minimal exertion such as walking. Denies palpitations, but feels as though her heart is "pounding". She admits to having an episode of diaphoresis at the peak of her pain. She did have episodes of emesis 4-5 times prior to arrival. She is not currently chest pain-free, states that the pain is still 7 out of 10 on the pain scale. She is resting comfortably in bed. She denies abdominal pain, diarrhea/constipation, URI symptoms, LUTS, fever/chills, weakness, numbness/tingling, or syncope. States "my medications are in the chart and they are the exact same as listed." ED evaluation reveals CBC with leukocytosis 12.09, stable H&H; VBG with pH 7.31; CMP glucose 165; troponin 87.1, pending repeat; lipase 27; CXR WNL; CTAP cirrhosis with portal hypertension, splenomegaly, atherosclerotic changes of aorta and iliac arteries, no acute findings; chest CTA no evidence of PE, diffuse groundglass haze with subpleural atelectasis, atherosclerotic changes of descending thoracic aorta; EKG NSR at 75 bpm.; Received 1L NSS and morphine 2 mg IV in ED. Please see Dr. Bonner's attestation for adjustments/additions to treatment plan. Allergies Allergy/AdvReac Type Severity Reaction Status Date / Time cephalexin [From Keflex] Allergy Severe kidney Verified 08/11/24 09:17 failure sulfamethoxazole Allergy Severe Went into Verified 08/11/24 09:17 [From Bactrim] Renal Failure trimethoprim [From Bactrim] Allergy Severe Went into Verified 08/11/24 09:17 Renal Failure Home Medications Medication Instructions Recorded Confirmed Type acetaminophen 325 mg tablet 650 mg (2 x 325 mg) PO Q4H PRN 01/26/21 09/06/24 Rx pain #20 tabs compression stockings #1 ea 04/23/22 08/11/24 Rx Auto Titrating CPAP #1 ea 07/12/22 08/11/24 Rx CPAP Supplies #1 ea 07/12/22 08/11/24 Rx Walking Cane #1 ea 08/06/22 08/11/24 Rx glucagon 3 mg/actuation nasal spray 3 mg intranasal ONCE PRN severe 06/03/23 09/06/24 Rx hypoglycemia #2 ea clopidogrel 75 mg tablet (Plavix) 75 mg PO QPM #90 tabs 10/16/23 09/06/24 Rx ezetimibe 10 mg tablet 10 mg PO DAILY #90 tabs 10/16/23 08/11/24 Rx insulin aspart U-100 100 unit/mL 12 unit (0.12 mL) .Route TID #30 mL 10/16/23 09/06/24 Rx (3 mL) subcutaneous pen nitroglycerin 0.4 mg sublingual 0.4 mg sublingual Q5M PRN chest 10/16/23 09/06/24 Rx tablet pain #20 tabs tiotropium bromide 2.5 2 puff inhalation DAILY #4 grams 10/16/23 09/06/24 Rx mcg/actuation mist for inhalation (Spiriva Respimat) evolocumab 140 mg/mL subcutaneous 140 mg subcut Q14D 10/30/23 09/06/24 History pen injector (Repatha SureClick) galcanezumab-gnlm 120 mg/mL 120 mg subcut MONTHLY 10/30/23 09/06/24 History subcutaneous pen injector (Emgality Pen) blood sugar diagnostic (OneTouch #100 ea 11/04/23 08/11/24 Rx Verio test strips) lancets 28 gauge (Advanced Travel #100 ea 11/04/23 08/11/24 Rx Lancets) pen needle, diabetic 31 gauge x #200 ea 11/10/23 08/11/24 Rx 5/16" (BD Ultra-Fine Short Pen Needle) albuterol sulfate 90 mcg/actuation 2 puff inhalation Q4H PRN 12/19/23 09/06/24 Rx aerosol inhaler shortness of breath or wheezing #8.5 grams topiramate 50 mg tablet 50 mg PO BID #180 tabs 05/03/24 09/06/24 Rx varenicline tartrate 1 mg tablet 1 mg PO BID #168 tabs 06/10/24 08/11/24 Rx atorvastatin 80 mg tablet 80 mg PO QAM 07/12/24 09/06/24 History budesonide-formoterol HFA 160 2 puff inhalation QAM 07/12/24 09/06/24 History mcg-4.5 mcg/actuation aerosol inhaler (Symbicort) duloxetine 30 mg capsule,delayed 30 mg PO QAM 07/12/24 09/06/24 History release duloxetine 60 mg capsule,delayed 60 mg PO QAM 07/12/24 09/06/24 History release fluticasone propionate 50 2 spray intranasal DAILY PRN 07/12/24 09/06/24 History mcg/actuation nasal Congestion spray,suspension (Flonase Allergy Relief) insulin glargine U-300 conc 300 130 unit subcut QAM 07/12/24 09/06/24 History unit/mL (3 mL) subcutaneous pen (TouCrowdpark Max U-300 SoloStar) levothyroxine 100 mcg tablet 100 mcg PO QAM 07/12/24 09/06/24 History pantoprazole 40 mg tablet,delayed 40 mg PO QAM 07/12/24 09/06/24 History release polyethylene glycol 3350 17 gram 17 g PO BID 07/12/24 09/06/24 History oral powder packet (Miralax) trazodone 150 mg tablet 150 mg PO HS 07/12/24 09/06/24 History hydroxyzine pamoate 25 mg capsule 25 mg PO Q8H PRN anxiety #270 caps 08/02/24 09/06/24 Rx (Vistaril) empagliflozin 25 mg tablet 25 mg PO QAM #90 tabs 08/05/24 09/06/24 Rx pregabalin 150 mg capsule 150 mg PO BID #60 caps 08/11/24 09/06/24 Rx methocarbamol 500 mg tablet 500 mg PO TID PRN Spasms #30 tabs 08/16/24 09/06/24 Rx Victoza 2-Isidro 0.6 mg/0.1 mL (18 See Rx Instructions subcut 08/19/24 09/06/24 Rx mg/3 mL) subcutaneous pen injector .COMPLEX #6 mL (liraglutide) blood-glucose sensor (FreeStyle #2 ea 08/20/24 Rx Alfonso 3 Plus Sensor device) Past Med/Surg History Problem List (Updated 09/06/24 @ 06:30 by Nikki Patton PA-C) Type 2 diabetes mellitus Hypocalcemia Non-ST elevation TN (NSTEMI) (Acute) Loss of protective sensation of skin of foot Foreign body (FB) in soft tissue (Acute) Diabetic ulcer of right foot (Acute) Arthralgia Elevated erythrocyte sedimentation rate Elevated C-reactive protein (CRP) Iron deficiency anemia E coli infection Anemia Cutaneous abscess of back excluding buttocks (Acute) Atherosclerosis Class 3 obesity Poorly controlled type 2 diabetes mellitus Fibromyalgia Lung nodule Generalized anxiety disorder with panic attacks MDD (major depressive disorder), recurrent, with melancholic features Fatty infiltration of liver seen on CT scan dated 09/04/2020 Chronic kidney disease COPD (chronic obstructive pulmonary disease) with chronic bronchitis Tobacco abuse Peptic ulcer disease Chronic diastolic CHF (congestive heart failure) Marijuana abuse Dyslipidemia Coronary artery disease (Chronic) Follows with [facility] Heart failure, systolic, due to CAD Hypertension (Chronic) Hypothyroidism Nocturnal hypoxia Restless legs syndrome Severe obstructive sleep apnea-hypopnea syndrome CPAP + 4 LPM O2 Diabetic peripheral neuropathy associated with type 2 diabetes mellitus (Chronic) Asthma rare use PRN inh Insomnia Glaucoma Vitamin D deficiency Migraine headache Posttraumatic stress disorder Obsessive compulsive disorder Bipolar disorder Medical History Hx of diabetic foot ulcer resolved per pt Iron deficiency anemia pt is due to get iron infusion this week at [facility], is checking with [facility] to see if ok for colonoscopy On anticoagulant therapy Tobacco abuse 1 ppd Diabetes Bipolar disorder OCD (obsessive compulsive disorder) PTSD (post-traumatic stress disorder) Migraine Vitamin D deficiency Glaucoma Insomnia Asthma using res inh daily per pt Diabetic peripheral neuropathy Severe obstructive sleep apnea CPAP + 5 LPM O2 RLS (restless legs syndrome) Nocturnal hypoxia O2 @ 5 lpm HS w/ CPAP Hypothyroidism HTN (hypertension) CAD (coronary artery disease) follows w/ [facility] Dyslipidemia Chronic diastolic (congestive) heart failure PUD (peptic ulcer disease) COPD (chronic obstructive pulmonary disease) CKD (chronic kidney disease) no specialist Fatty infiltration of liver Lower leg edema MDD (major depressive disorder) Anxiety Lung nodules under surveillance Dyspnea Fibromyalgia Atherosclerosis Abscess of back 10/2023- resolved History of COVID-19 (2020) no hosp; resolved Chronic cough Anemia History of ESBL E. coli infection treated for colon infection ~11/2023 - resolved Tenosynovitis of hand History of colon polyps Gastritis History of heart attack (2008) x3, 2008 and 2013 Surgical History History of removal of cyst (04/02/22) FINAL DIAGNOSIS In office procedure Dr. Ronnie Zhang Skin, back scalp cyst, excision: - Ruptured epidermoid cyst B. Skin, right front scalp cyst, excision: - Focal cyst wall lining (see comment) History of removal of cyst FINAL DIAGNOSIS Scalp, excision: - Heavily inflamed squamous cyst consistent with an epidermal cyst. In office procedure Dr. Trujillo 07/25/2021 History of cataract surgery 11/30/20 R eye and 12/12/20 L eye S/P dilation and curettage History of cardiac catheterization 2008 - [place] - 2 stents 2009 - [place] - 1 stent 2013 - CHF - angioplasty, no stents -- all caths done at [facility] in [place], [place] History of esophagogastroduodenoscopy (EGD) most recent 11/11/19 [facility] History of colonoscopy most recent 11/11/19 [facility] S/P hysterectomy secondary to endometriosis, tubes also removed. Ovaries retained H/O heart artery stent x 3 S/P tonsillectomy H/O hernia repair (03/11/17) History of cholecystectomy History of x 2 History of appendectomy Family History Father Diabetes Coronary heart disease Myocardial infarction Hypertension Mother Diabetes Coronary heart disease Hypertension Stroke Slow to wake up after anesthesia Brother Diabetes Grandmother (Maternal) Diabetes Myocardial infarction Hypertension Grandmother (Paternal) Coronary heart disease Aunt Breast cancer Uterine cancer Paternal Grandfather (Maternal) Colorectal cancer Uncle Colorectal cancer Family/Other Ovarian cancer Multiple cousins Denies family history of Prostate cancer Lung cancer Social History Smoking Status: Heavy tobacco smoker Tobacco Type: Cigarettes Age Started Using Tobacco: 11; packs per day: 1; Cigarettes Per Day: 1 ppd > advised npo; Second Hand Exposure: No; Do You Dip or Chew Tobacco: No; Hx Alcohol Use: No Hx Substance Use: Yes Prescribed Medications: Marijuana Last Used Substance: Days (ago) Last Used Substance Other:: 01/13/24 Substance Use Type Other:: daily use > advised 3 day hold Preferred Language: Maltese Communication Ability: Effective Visual Impairment: No Limitations Hearing Ability: Normal Manager Agency Required: No Beliefs That Will Affect Care: None marital status: Current Living Situation: Spouse Current Living Situation Comment: house; 2 story current occupational status: employed How many Children do You have: 2 Feels Safe at Home: Yes Childhood Exposure to Second-Hand Smoke: Yes Diet: diabetic and low carbohydrate Diet Comment: does not follow diet caffeine: No (ice tea) during the past year weight has: other Dental Care, Regularly: Yes Physical Activity Frequency: 1-2 Times per Week Physical Activity Frequency Comment: swimming Seatbelt Use: always Sunscreen Use: No Assistive Devices: CPAP, Glasses and Oxygen - at Night Review of Systems Review of Systems: All systems reviewed & are unremarkable except as noted in Subjective Physical Exam Physical Exam: General: No acute distress Skin: Warm and dry Head: Normocephalic, atraumatic Eyes: PERRL, conjunctivae clear, sclera non-icteric ENT: External ear and ear canal without swelling; nose atraumatic; good dentition, tongue normal appearance, pharynx normal Neck: Supple, no LAD Cardio: RRR, no M/G/R, S1 and S2 normal Resp: Wearing O2 via NC; no respiratory distress, Lungs CTA in all lobes bilaterally, no wheezes, rales, or rhonchi Abdomen: Soft, symmetric, nontender; No masses or hepatosplenomegaly; Bowel sounds normoactive MSK: No deformities; pulses palpable and equal; no edema. Neuro: Awake, alert; Sensation intact bilaterally; CN grossly intact Psych: Appropriate mood and affect; good judgement and insight. Results & Data Results & Data Vital Signs (Past 12 Hours) Vital Signs Temp Pulse Pulse Resp BP BP Pulse Ox 09/06/24 05:00 69 14 98/59 L 93 09/06/24 04:11 77 16 127/75 94 09/06/24 03:45 76 16 104/62 95 09/06/24 03:36 80 16 81/53 L 93 09/06/24 03:13 84 18 93 09/06/24 03:13 36.7 C 84 18 96/62 L 93 09/06/24 03:13 09/06/24 02:54 92 09/06/24 02:52 36.6 C 85 16 96/62 L 86 L 09/06/24 02:49 83 O2 Del Method O2 Flow Rate 09/06/24 05:00 Nasal Cannula 1 09/06/24 04:11 Nasal Cannula 1 09/06/24 03:45 Nasal Cannula 1 09/06/24 03:36 Nasal Cannula 1 09/06/24 03:13 Nasal Cannula 2 09/06/24 03:13 Nasal Cannula 2 09/06/24 03:13 Nasal Cannula 2 09/06/24 02:54 Nasal Cannula 2 09/06/24 02:52 Room Air 09/06/24 02:49 Laboratory Results 09/06/24 09/06/24 09/06/24 04:55 03:08 03:00 WBC RBC Hgb POC Hgb 15.0 Hct POC Hct 44 MCV MCH MCHC RDW Std Deviation RDW Coeff of Caitlin Plt Count MPV Immature Gran % (Auto) Neut % (Auto) Lymph % (Auto) Dewitt % (Auto) Eos % (Auto) Baso % (Auto) Neut # (Auto) Lymph # (Auto) Dewitt # (Auto) Eos # (Auto) Baso # (Auto) Immature Gran # (Auto) Polychromasia Anisocytosis VBG pH VBG pCO2 VBG pO2 VBG HCO3 VBG O2 Saturation VBG Base Excess POC Sodium 138 Sodium POC Potassium 4.2 Potassium POC Chloride 103 Chloride Carbon Dioxide POC Total CO2 22 L Anion Gap POC Anion Gap 18.0 POC BUN 20 H BUN Creatinine POC Creatinine 1.2 Est Cr Clr Drug Dosing eGFR BUN/Creatinine Ratio Glucose POC Glucose (other) 162 H Calcium POC Ioniz Calcium Angie 1.19 Troponin I High Sens 210.5 H* D Cancelled B-Natriuretic Peptide 9 Lipase 27 09/06/24 03:00 WBC 12.09 H RBC 5.56 H Hgb 13.4 POC Hgb Hct 42.9 POC Hct MCV 77.2 L MCH 24.1 L MCHC 31.2 L RDW Std Deviation 63.0 H RDW Coeff of Caitlin 23.3 H Plt Count 154 MPV 10.3 Immature Gran % (Auto) 0.4 Neut % (Auto) 69.1 Lymph % (Auto) 20.4 Dewitt % (Auto) 8.3 Eos % (Auto) 0.7 Baso % (Auto) 1.1 Neut # (Auto) 8.36 H Lymph # (Auto) 2.47 Dewitt # (Auto) 1.00 H Eos # (Auto) 0.08 Baso # (Auto) 0.13 Immature Gran # (Auto) 0.05 Polychromasia 1+ Anisocytosis Present VBG pH 7.31 L VBG pCO2 44 VBG pO2 102 VBG HCO3 22 VBG O2 Saturation 98.0 VBG Base Excess -4.1 POC Sodium Sodium 136 POC Potassium Potassium 4.2 POC Chloride Chloride 104 Carbon Dioxide 25 POC Total CO2 Anion Gap 7 POC Anion Gap POC BUN BUN 18 Creatinine 1.14 POC Creatinine Est Cr Clr Drug Dosing 62.6 eGFR 55.45 BUN/Creatinine Ratio 15.8 Glucose 165 H POC Glucose (other) Calcium 8.5 L POC Ioniz Calcium Angie Troponin I High Sens 87.1 H* B-Natriuretic Peptide Lipase Diagnostic Findings Chest X-Ray 09/06/24 02:56 EXAM: XR chest 1V portable CLINICAL HISTORY: Chest pain, nonspecific TECHNIQUE: An X-ray image of the chest is obtained in AP projection. COMPARISON: Prior CR, March 15, 2022, was reviewed. FINDINGS: Pulmonary Parenchyma: Lungs are clear bilaterally. No evidence of consolidation, collapse, or focal opacities. No pulmonary nodules are identified. No evidence of pleural effusion or pleural thickening. Heart and Mediastinum: Heart size and shape are normal. No mediastinal widening or masses. No hilar or mediastinal lymphadenopathy. Bony Thorax: Bony thorax appears intact without fractures or deformities. Soft Tissues: Soft tissues overlying the chest wall are unremarkable. Chest leads are seen IMPRESSION: 1. Normal chest X-ray. No acute cardiopulmonary abnormalities are identified. 2. No interval changes. Electronically signed by Sathish Navas 09-06-2024 03:51 AM Abdomen/Pelvis CTA 09/06/24 03:43 EXAM: CT angio abdomen pelvis w con CLINICAL HISTORY: ro dissection TECHNIQUE: Contrast enhanced thin slice CT angiography scan of the abdominal aorta was performed with intravenous contrast. Angiographic images were processed, 3D MIP images were acquired for interpretation. Contiguous axial images were obtained. Reformatted coronal and sagittal images were also reviewed. If IV contrast material had not been administered, the likelihood of detecting abnormalities relevant to the patients condition would have been substantially decreased. CT scan was performed according to ALARA (as low as reasonable achievable). COMPARISON: 17:51:59 MMA FIGHTER . FINDINGS: Diffuse atherosclerotic calcification is noted involving aorta iliac arteries. Abdominal aorta is normal in course, calibre and opacification. Origin of coeliac artery, superior mesenteric artery , bilateral main renal and lumbar arteries are normal with no hemodynamically significant ostial stenosis noted. Bilateral common, external and internal iliac arteries are normal in course, caliber and opacification. The liver appears relatively smaller in size and shows hypertrophied caudate lobe. It shows mild heterogeneous parenchyma with irregular nodular surface. Portal vein appears dilated with multiple collaterals are noted adjacent to the perigastric/peripancreatic space - suggestive of portal hypertension. The spleen appears enlarged in size measures about 15 cm Solid abdominal organs including pancreas and bilateral kidneys reveal no significant abnormality. Bowel loops are grossly unremarkable. No evidence of ascites. IMPRESSION: 1. Cirrhosis of liver with portal hypertension-stable. 2. Splenomegaly.-stable. 3. Atherosclerotic changes are noted involving aorta and iliac arteries.-stable. 4. No obvious aortic dissection or aneurysm. 5. No other new interval abnormality since prior study. Electronically signed by Jayden Johnson 09-06-2024 05:12 AM Chest CTA 09/06/24 03:43 EXAM: CT angio chest dissec wo/w con CLINICAL HISTORY: ro dissection TECHNIQUE: Contiguous axial images were obtained from the neck base through the upper abdomen without and with intravenous administration of iodinated contrast material. Angiographic images were processed, 3D MIP images were acquired for interpretation. If IV contrast material had not been administered, the likelihood of detecting abnormalities relevant to the patient's condition would have been substantially decreased. Coronal and sagittal 3-D MIPs were likewise performed and indicated to increase the sensitivity of detectin diffuse clinically relevant pathology. CT scan was performed according to ALARA (as low as reasonable achievable). COMPARISON: 17:55:08 MMA FIGHTER. FINDINGS: Atherosclerotic changes with multifocal plaques are noted involving descending thoracic aorta without hemodynamically significant stenosis. Diffuse ground-glass hase with subpleural atelectasis are noted involving dependent portion of both lower lobes - suggest possibility of due to insufficient inspiration. Adequate contrast bolus without evidence of pulmonary embolism. The central airways are patent. Rest of lungs are clear. No pleural effusion. The heart, Rest of aorta, and pulmonary arteries are of normal size and configuration. There are no appreciable coronary artery and aortic atherosclerotic calcifications. No pericardial effusion is identified. The thyroid is unremarkable. No mediastinal, hilar, or axillary lymphadenopathy is noted. No suspicious lytic or sclerotic osseous lesions are identified. IMPRESSION: 1. No evidence of pulmonary embolism. 2. Diffuse ground-glass hase with subpleural atelectasis are noted involving dependent portion of both lower lobes - suggest possibility of due to insufficient inspiration.-new. 3. No obvious dissection or aneurysm. 4. Atherosclerotic changes with multifocal plaques are noted involving descending thoracic aorta without hemodynamically significant stenosis.-stable. Electronically signed by Jayden Johnson 09-06-2024 04:31 AM Medications Administered 1L NSS Morphine 2 mg IV ECG Additional Comments: NSR 75 bpm, CT 162, QRS 94, QT/QTc 416/464, PRT 59/31/76 Code Status & VTE Plan Code Status Full Supervising Physician Co-Signing Physician Notes Patient seen and examined, chart reviewed, case discussed with NONI Patton and I agree with the assessment and plan as above. Patient with prior [place], presenting with chest pain similar to prior No acute EKG changes Troponin mildly elevated On exam she is sleeping soundly but arousable to voice +S1/S2, regular, no m/r/g Lungs CTA Abd soft, NT/ND Ext - warm, well perfused Labs and images reviewed Assessment/Plan -Heparin gtt -Trend troponin -2D echo -Cardiology consultation appreciated -Remainder as above PG Care Time/CCT Total # of Minutes Spent Total Time Spent with Patient: Total time spent is greater than 50% in coordination of care (as documented) at patient's floor/unit and/or counseling patient: Coding Level of Care Code 52524 INT INP/OBS CARE 3/75MIN Diagnoses Non-ST elevation TN (NSTEMI) I21.4 Hypocalcemia E83.51 Type 2 diabetes mellitus E11.9
[2024-09-06] MEDS ORDERED: Heparin IV Adult Wt-Based Low-Dose w/ INITIAL Bolus Protocol IV STA (05:44)
[2024-09-06 06:20] LABS: INR 1.0 (0.9-1.1); Partial Thromboplastin Time 29 Seconds (21-31); Prothrombin Time 10.8 Seconds (9.0-12.0)
[2024-09-06] MEDS: HEPARIN SOD (PORCINE) 1000 UNIT/ML IV ONE (06:29)
[2024-09-06] MEDS ORDERED: GLUCAGON FOR INJ 1 MG VIAL SQ PRN (06:32)
[2024-09-06] MEDS ORDERED: GLUCOSE 10 TAB/TUBE PO PRN (06:32)
[2024-09-06] MEDS ORDERED: CARBOHYDRATES FOR HYPOGLYCEMIA PO PRN (06:32)
[2024-09-06] MEDS ORDERED: DEXTROSE 50% 50 ML SYRINGE IV PRN (06:32)
[2024-09-06] MEDS ORDERED: GLUCOSE 40% GEL 15 GM TUBE PO PRN (06:32)
[2024-09-06] MEDS ORDERED: PHARMACY GLYCEMIC MGMT CONSULT PRN (06:32)
[2024-09-06] MEDS: HEPARIN 25000 UNIT/500 ML D5W 25,000 UNITS/500 ML BAG IV SCH (06:33)
--- NOTE | 2024-09-06 07:19 | Pharmacy Report ---
Pharmacy Glycemic Short Note 2 - Date of Service September 06, 2024 - Glycemic Short BSG Results (Last 24 hours): 09/06/24 09/06/24 03:00 03:08 Glucose 165 H POC Glucose (other) 162 H OUTPATIENT ANTIDIABETIC REGIMEN: * Jardiance 25 mg daily * Insulin aspart 12 units TID + SSI * Toujeo 130 units daily * Victoza 1.2mg SQ daily * A1c 6.9% 04/08/24 ASSESSMENT: * 59 yo F admitted with NSTEMI, hx T2DM. NPO this morning until cardiology consult, cardiac cath today. * Partial dose of basal this AM for NPO status, will increase when diet resumes. * NovoLog for correctional and prandial insulin. PLAN FOR INPATIENT GLYCEMIC CONTROL: * Hold outpatient diabetes medications * Basal insulin * Lantus 50 units SQ this AM, 50 units HS for BSG > 200mg/dl - further dosing tomorrow morning * Bolus insulin * NovoLog per scale ACHS or Q6hrs while NPO * Goal Range: Low 110 mg/dL - High 140 mg/dL * Correction Factor: 15 mg/dL/unit * Nutritional / Prandial insulin per carb ratio of 1 unit per 5 grams CHO consumed
[2024-09-06] MEDS ORDERED: METHOCARBAMOL 500 MG TABLET PO PRN (09:05)
[2024-09-06] MEDS ORDERED: ALUMINUM/MAGNESIUM SUSP 30 ML UDC PO PRN (09:05)
[2024-09-06] MEDS ORDERED: MoRPHine SULFATE 2 MG/ML CARP IV PRN (09:05)
[2024-09-06] MEDS ORDERED: MELATONIN 3 MG TAB PO PRN (09:05)
[2024-09-06] MEDS ORDERED: ALBUTEROL HFA 8 GM INHALER INH PRN (09:05)
[2024-09-06] MEDS ORDERED: ONDANSETRON INJ 2 MG/ML 2 ML VIAL IV PRN (09:05)
--- NOTE | 2024-09-06 09:21 | Cardiology Consultation ---
Date of Consultation September 06, 2024 Assessment & Plan (1) Non-ST elevation RI (NSTEMI): (2) CAD (coronary artery disease): (3) S/P coronary artery stent placement: (4) Dyslipidemia: (5) Hypertension: (6) Chronic heart failure with preserved ejection fraction: Plan ASSESSMENT/PLAN: 1. NSTEMI: Ongoing angina. Recommend urgent cardiac catheterization despite eating breakfast this morning. Cannot administer nitroglycerin as she was hypotensive while at the bedside with systolic pressure in the 90s. Has received full dose aspirin. Chronically on Plavix. Continue heparin if no contraindication. Risks and benefits of the procedure were discussed with her in detail and she was agreeable to proceed. She was made aware that CT surgery is not available at this facility. Echo. 2. CAD s/p LAD and Cx PCI: Angina as above. Symptoms are the same as previous RI/anginal episodes per patient report. Antiplatelet therapy as above. Continue aggressive lipid lowering agents, including high intensity statin therapy. Cardiac rehab. 3. Hypertension: Blood pressure normotensive to mildly hypotensive. Limiting the use of antianginal therapy. 4. Dyslipidemia: Continue high intensity statin therapy, PCSK9 inhibitor, and Zetia. Most recent LDL reasonably controlled. 5. Tobacco abuse: Stop smoking. 6. Chronic heart failure with preserved EF: She does not appear to be significantly hypervolemic currently and her BNP is 9. Low-sodium diet. She does not require loop diuretic in the outpatient setting. 7. Disposition: Cardiology will continue to follow. Patient care communicated with Dr. Cleary of the primary hospitalist service. Highly complex medical issues. Thank you for allowing me to participate in the care of your patient. Please call for any other questions or concerns. Sincerely, Germán Rivera M.D. History of Present Illness Reason for Consultation: chest pain, elevated trop, CAD Requesting Physician: Nikki Patton Attending Physician: Catherine Bonner DO History of Present Illness Mrs. Horton is a pleasant 59-year-old female with a history significant for CAD s/p multivessel PCI (LAD x 2, circumflex x 2), type 2 diabetes, hypertension, dyslipidemia, heart failure with preserved EF, COPD/asthma, CKD, peptic ulcer disease with prior GI bleed, and sleep apnea on CPAP. Her primary metallurgical analyst is Dr. Akers. She was admitted on 09/06/2024 with angina. She describes a substernal and left- sided chest discomfort like something is punching her. It feels exactly like prior RI. Her first episode was 3 days ago while in bed but it was very brief and quickly resolved. The next day, she had an episode that woke her up from sleep, again associated with shortness of breath but brief. Then last night, at approximately 10 PM before she went to bed the pain again began. It is worse with exertion and laying supine, the same characteristics she had with prior MIs/angina which resolved with PCI. She had a total of nitroglycerin x 3 with no improvement of her symptoms. She received a full dose aspirin and EMS. She is prescribed Plavix in the outpatient setting but has not been taking it in anticipation of getting her tattoo. Although documented that she was chest pain-free at the time of admission, she states now that she has been experiencing constant chest pain without relief. She notes orthopnea and has chronic dyspnea on exertion. She denies melena, hematochezia, hematuria, edema, palpitations, syncope, or near syncope. She reports receiving intravenous iron transfusions recently but has not noted any active bleeding. She has been trying to cut back on her smoking, currently down to 1 pack/day. Review of systems: As above. Family history: Significant for premature CAD. Social history: Smokes 1 pack/day but has smoked up to 2 packs/day. Started smoking at the age of 11. Denies alcohol. Lives at home with her , daughter, and grandson. She also has a daughter in [place]. Her was present at the bedside. Allergies Allergy/AdvReac Type Severity Reaction Status Date / Time cephalexin [From Keflex] Allergy Severe kidney Verified 08/11/24 09:17 failure sulfamethoxazole Allergy Severe Went into Verified 08/11/24 09:17 [From Bactrim] Renal Failure trimethoprim [From Bactrim] Allergy Severe Went into Verified 08/11/24 09:17 Renal Failure Home Medications Medication Instructions Recorded Confirmed Type acetaminophen 325 mg tablet 650 mg (2 x 325 mg) PO Q4H PRN 01/26/21 09/06/24 Rx pain #20 tabs compression stockings #1 ea 04/23/22 08/11/24 Rx Auto Titrating CPAP #1 ea 07/12/22 08/11/24 Rx CPAP Supplies #1 ea 07/12/22 08/11/24 Rx Walking Cane #1 ea 08/06/22 08/11/24 Rx glucagon 3 mg/actuation nasal spray 3 mg intranasal ONCE PRN severe 06/03/23 09/06/24 Rx hypoglycemia #2 ea clopidogrel 75 mg tablet (Plavix) 75 mg PO QPM #90 tabs 10/16/23 09/06/24 Rx ezetimibe 10 mg tablet 10 mg PO DAILY #90 tabs 10/16/23 08/11/24 Rx insulin aspart U-100 100 unit/mL 12 unit (0.12 mL) .Route TID #30 mL 10/16/23 09/06/24 Rx (3 mL) subcutaneous pen nitroglycerin 0.4 mg sublingual 0.4 mg sublingual Q5M PRN chest 10/16/23 09/06/24 Rx tablet pain #20 tabs tiotropium bromide 2.5 2 puff inhalation DAILY #4 grams 10/16/23 09/06/24 Rx mcg/actuation mist for inhalation (Spiriva Respimat) evolocumab 140 mg/mL subcutaneous 140 mg subcut Q14D 10/30/23 09/06/24 History pen injector (Repatha SureClick) galcanezumab-gnlm 120 mg/mL 120 mg subcut MONTHLY 10/30/23 09/06/24 History subcutaneous pen injector (Emgality Pen) blood sugar diagnostic (OneTouch #100 ea 11/04/23 08/11/24 Rx Verio test strips) lancets 28 gauge (Advanced Travel #100 ea 11/04/23 08/11/24 Rx Lancets) pen needle, diabetic 31 gauge x #200 ea 11/10/23 08/11/24 Rx 5/16" (BD Ultra-Fine Short Pen Needle) albuterol sulfate 90 mcg/actuation 2 puff inhalation Q4H PRN 12/19/23 09/06/24 Rx aerosol inhaler shortness of breath or wheezing #8.5 grams topiramate 50 mg tablet 50 mg PO BID #180 tabs 05/03/24 09/06/24 Rx varenicline tartrate 1 mg tablet 1 mg PO BID #168 tabs 06/10/24 08/11/24 Rx atorvastatin 80 mg tablet 80 mg PO QAM 07/12/24 09/06/24 History budesonide-formoterol HFA 160 2 puff inhalation QAM 07/12/24 09/06/24 History mcg-4.5 mcg/actuation aerosol inhaler (Symbicort) duloxetine 30 mg capsule,delayed 30 mg PO QAM 07/12/24 09/06/24 History release duloxetine 60 mg capsule,delayed 60 mg PO QAM 07/12/24 09/06/24 History release fluticasone propionate 50 2 spray intranasal DAILY PRN 07/12/24 09/06/24 History mcg/actuation nasal Congestion spray,suspension (Flonase Allergy Relief) insulin glargine U-300 conc 300 130 unit subcut QAM 07/12/24 09/06/24 History unit/mL (3 mL) subcutaneous pen (Toujeo Max U-300 SoloStar) levothyroxine 100 mcg tablet 100 mcg PO QAM 07/12/24 09/06/24 History pantoprazole 40 mg tablet,delayed 40 mg PO QAM 07/12/24 09/06/24 History release polyethylene glycol 3350 17 gram 17 g PO BID 07/12/24 09/06/24 History oral powder packet (Miralax) trazodone 150 mg tablet 150 mg PO HS 07/12/24 09/06/24 History hydroxyzine pamoate 25 mg capsule 25 mg PO Q8H PRN anxiety #270 caps 08/02/24 09/06/24 Rx (Vistaril) empagliflozin 25 mg tablet 25 mg PO QAM #90 tabs 08/05/24 09/06/24 Rx pregabalin 150 mg capsule 150 mg PO BID #60 caps 08/11/24 09/06/24 Rx methocarbamol 500 mg tablet 500 mg PO TID PRN Spasms #30 tabs 08/16/24 09/06/24 Rx Victoza 2-Isidro 0.6 mg/0.1 mL (18 See Rx Instructions subcut 08/19/24 09/06/24 Rx mg/3 mL) subcutaneous pen injector .COMPLEX #6 mL (liraglutide) blood-glucose sensor (FreeStyle #2 ea 08/20/24 Rx Alfonso 3 Plus Sensor device) Problem List (Updated 09/06/24 @ 10:27 by Tim Rivera MD) Chronic heart failure with preserved ejection fraction S/P coronary artery stent placement Type 2 diabetes mellitus Hypocalcemia Non-ST elevation RI (NSTEMI) (Acute) Loss of protective sensation of skin of foot Foreign body (FB) in soft tissue (Acute) Diabetic ulcer of right foot (Acute) Arthralgia Elevated erythrocyte sedimentation rate Elevated C-reactive protein (CRP) Iron deficiency anemia E coli infection Anemia Cutaneous abscess of back excluding buttocks (Acute) Atherosclerosis Class 3 obesity Poorly controlled type 2 diabetes mellitus Fibromyalgia Lung nodule Generalized anxiety disorder with panic attacks MDD (major depressive disorder), recurrent, with melancholic features Fatty infiltration of liver seen on CT scan dated 09/04/2020 Chronic kidney disease COPD (chronic obstructive pulmonary disease) with chronic bronchitis Tobacco abuse Peptic ulcer disease Chronic diastolic CHF (congestive heart failure) Marijuana abuse Dyslipidemia Coronary artery disease (Chronic) Follows with [facility] Heart failure, systolic, due to CAD Hypertension (Chronic) Hypothyroidism Nocturnal hypoxia Restless legs syndrome Severe obstructive sleep apnea-hypopnea syndrome CPAP + 4 LPM O2 Diabetic peripheral neuropathy associated with type 2 diabetes mellitus (Chronic) Asthma rare use PRN inh Insomnia Glaucoma Vitamin D deficiency Migraine headache Posttraumatic stress disorder Obsessive compulsive disorder Bipolar disorder Patient History Medical History Hx of diabetic foot ulcer resolved per pt Iron deficiency anemia pt is due to get iron infusion this week at [facility], is checking with [facility]o to see if ok for colonoscopy On anticoagulant therapy Tobacco abuse 1 ppd Diabetes Bipolar disorder OCD (obsessive compulsive disorder) PTSD (post-traumatic stress disorder) Migraine Vitamin D deficiency Glaucoma Insomnia Asthma using res inh daily per pt Diabetic peripheral neuropathy Severe obstructive sleep apnea CPAP + 5 LPM O2 RLS (restless legs syndrome) Nocturnal hypoxia O2 @ 5 lpm HS w/ CPAP Hypothyroidism HTN (hypertension) CAD (coronary artery disease) follows w/ [facility] Dyslipidemia Chronic diastolic (congestive) heart failure PUD (peptic ulcer disease) COPD (chronic obstructive pulmonary disease) CKD (chronic kidney disease) no specialist Fatty infiltration of liver Lower leg edema MDD (major depressive disorder) Anxiety Lung nodules under surveillance Dyspnea Fibromyalgia Atherosclerosis Abscess of back 10/2023- resolved History of COVID-19 (2020) no hosp; resolved Chronic cough Anemia History of ESBL E. coli infection treated for colon infection ~11/2023 - resolved Tenosynovitis of hand History of colon polyps Gastritis History of heart attack (2009) x3, 2009 and 2013 Surgical History History of removal of cyst (04/02/22) FINAL DIAGNOSIS In office procedure Dr. Ronnie Davey. Skin, back scalp cyst, excision: - Ruptured epidermoid cyst B. Skin, right front scalp cyst, excision: - Focal cyst wall lining (see comment) History of removal of cyst FINAL DIAGNOSIS Scalp, excision: - Heavily inflamed squamous cyst consistent with an epidermal cyst. In office procedure Dr. Trujillo 07/25/2021 History of cataract surgery 11/30/20 R eye and 12/12/20 L eye S/P dilation and curettage History of cardiac catheterization 2008 - RI - 2 stents 2009 - RI - 1 stent 2013 - CHF - angioplasty, no stents -- all caths done at [facility] in [place], [place] History of esophagogastroduodenoscopy (EGD) most recent 11/11/19 [facility] History of colonoscopy most recent 11/11/19 [facility] S/P hysterectomy secondary to endometriosis, tubes also removed. Ovaries retained H/O heart artery stent x 3 S/P tonsillectomy H/O hernia repair (03/11/17) History of cholecystectomy History of x 2 History of appendectomy Family History Father Diabetes Coronary heart disease Myocardial infarction Hypertension Mother Diabetes Coronary heart disease Hypertension Stroke Slow to wake up after anesthesia Brother Diabetes Grandmother (Maternal) Diabetes Myocardial infarction Hypertension Grandmother (Paternal) Coronary heart disease Aunt Breast cancer Uterine cancer Paternal Grandfather (Maternal) Colorectal cancer Uncle Colorectal cancer Family/Other Ovarian cancer Multiple cousins Denies family history of Prostate cancer Lung cancer Social History Smoking Status: Heavy tobacco smoker Tobacco Type: Cigarettes Age Started Using Tobacco: 11; packs per day: 1; Cigarettes Per Day: 1 ppd > advised npo; Second Hand Exposure: No; Do You Dip or Chew Tobacco: No; Hx Alcohol Use: No Hx Substance Use: Yes Prescribed Medications: Marijuana Last Used Substance: Days (ago) Last Used Substance Other:: 01/13/24 Substance Use Type Other:: daily use > advised 3 day hold Preferred Language: Haitian Communication Ability: Effective Visual Impairment: No Limitations Hearing Ability: Normal Rope Walker Required: No Beliefs That Will Affect Care: None marital status: Current Living Situation: Spouse Current Living Situation Comment: house; 2 story current occupational status: employed How many Children do You have: 2 Feels Safe at Home: Yes Childhood Exposure to Second-Hand Smoke: Yes Diet: diabetic and low carbohydrate Diet Comment: does not follow diet caffeine: No (ice tea) during the past year weight has: other Dental Care, Regularly: Yes Physical Activity Frequency: 1-2 Times per Week Physical Activity Frequency Comment: swimming Seatbelt Use: always Sunscreen Use: No Assistive Devices: CPAP, Glasses and Oxygen - at Night Physical Exam Physical Exam: Gen.: No acute distress. Alert and oriented. HEENT: Anicteric sclera. Neck: Thick neck. No JVD. No bruits. Normal carotid upstrokes bilaterally. Cardiac: Regular. Normal S1-S2. No murmurs, rubs, or gallops. Pulmonary: Decreased breath sounds throughout, but otherwise clear to auscultation bilaterally without wheezes, rales, or rhonchi. Abdomen: Soft, nontender, nondistended, with normoactive bowel sounds. No bruits noted. Extremities: 1+ right radial pulse. No palpable left radial pulse. 1+ posterior tibialis pulses bilaterally. No significant pitting edema or cyanosis. Results & Data Vital Signs (Past 12 Hours) Vital Signs Temp Pulse Pulse Resp BP BP Pulse Ox 09/06/24 08:15 72 12 114/71 97 09/06/24 07:48 64 12 96/71 L 95 09/06/24 07:15 71 16 112/70 93 09/06/24 07:09 69 12 91/67 L 96 09/06/24 06:39 68 12 99/60 L 94 09/06/24 06:23 71 09/06/24 06:17 73 16 108/69 92 09/06/24 05:00 69 14 98/59 L 93 09/06/24 04:11 77 16 127/75 94 09/06/24 03:45 76 16 104/62 95 09/06/24 03:36 80 16 81/53 L 93 09/06/24 03:13 84 18 93 09/06/24 03:13 36.7 C 84 18 96/62 L 93 09/06/24 03:13 09/06/24 02:54 92 09/06/24 02:52 36.6 C 85 16 96/62 L 86 L 09/06/24 02:49 83 O2 Del Method O2 Flow Rate 09/06/24 08:15 Nasal Cannula 1 09/06/24 07:48 Nasal Cannula 1 09/06/24 07:15 Nasal Cannula 1 09/06/24 07:09 Nasal Cannula 1 09/06/24 06:39 Nasal Cannula 1 09/06/24 06:23 09/06/24 06:17 Nasal Cannula 1 09/06/24 05:00 Nasal Cannula 1 09/06/24 04:11 Nasal Cannula 1 09/06/24 03:45 Nasal Cannula 1 09/06/24 03:36 Nasal Cannula 1 09/06/24 03:13 Nasal Cannula 2 09/06/24 03:13 Nasal Cannula 2 09/06/24 03:13 Nasal Cannula 2 09/06/24 02:54 Nasal Cannula 2 09/06/24 02:52 Room Air 09/06/24 02:49 Laboratory Results Laboratory Results - last 24 hr 09/06/24 09/06/24 09/06/24 02:55 03:00 03:00 WBC 12.09 H RBC 5.56 H Hgb 13.4 POC Hgb Hct 42.9 POC Hct MCV 77.2 L MCH 24.1 L MCHC 31.2 L RDW Std Deviation 63.0 H RDW Coeff of Caitlin 23.3 H Plt Count 154 MPV 10.3 Immature Gran % (Auto) 0.4 Neut % (Auto) 69.1 Lymph % (Auto) 20.4 [place] % (Auto) 8.3 Eos % (Auto) 0.7 Baso % (Auto) 1.1 Neut # (Auto) 8.36 H Lymph # (Auto) 2.47 [place] # (Auto) 1.00 H Eos # (Auto) 0.08 Baso # (Auto) 0.13 Immature Gran # (Auto) 0.05 Polychromasia 1+ Anisocytosis Present PT 10.8 INR 1.0 APTT 29 PTT Ratio 1.1 VBG pH 7.31 L VBG pCO2 44 VBG pO2 102 VBG HCO3 22 VBG O2 Saturation 98.0 VBG Base Excess -4.1 POC Sodium Sodium 136 POC Potassium Potassium 4.2 POC Chloride Chloride 104 Carbon Dioxide 25 POC Total CO2 Anion Gap 7 POC Anion Gap POC BUN BUN 18 Creatinine 1.14 POC Creatinine Est Cr Clr Drug Dosing 62.6 eGFR 55.45 BUN/Creatinine Ratio 15.8 Glucose 165 H POC Glucose POC Glucose (other) Calcium 8.5 L POC Ioniz Calcium Angie Troponin I High Sens 87.1 H* Cancelled B-Natriuretic Peptide 9 Albumin Triglycerides Cholesterol VLDL Cholesterol, Calc HDL Cholesterol Cholesterol/HDL Ratio Lipase 27 09/06/24 09/06/24 09/06/24 03:08 04:55 08:20 WBC RBC Hgb POC Hgb 15.0 Hct POC Hct 44 MCV MCH MCHC RDW Std Deviation RDW Coeff of Caitlin Plt Count MPV Immature Gran % (Auto) Neut % (Auto) Lymph % (Auto) [place] % (Auto) Eos % (Auto) Baso % (Auto) Neut # (Auto) Lymph # (Auto) [place] # (Auto) Eos # (Auto) Baso # (Auto) Immature Gran # (Auto) Polychromasia Anisocytosis PT INR APTT PTT Ratio VBG pH VBG pCO2 VBG pO2 VBG HCO3 VBG O2 Saturation VBG Base Excess POC Sodium 138 Sodium POC Potassium 4.2 Potassium POC Chloride 103 Chloride Carbon Dioxide POC Total CO2 22 L Anion Gap POC Anion Gap 18.0 POC BUN 20 H BUN Creatinine POC Creatinine 1.2 Est Cr Clr Drug Dosing eGFR BUN/Creatinine Ratio Glucose POC Glucose 179 H POC Glucose (other) 162 H Calcium POC Ioniz Calcium Angie 1.19 Troponin I High Sens 210.5 H* D B-Natriuretic Peptide Albumin Triglycerides Cholesterol VLDL Cholesterol, Calc HDL Cholesterol Cholesterol/HDL Ratio Lipase 09/06/24 08:44 WBC RBC Hgb POC Hgb Hct POC Hct MCV MCH MCHC RDW Std Deviation RDW Coeff of Caitlin Plt Count MPV Immature Gran % (Auto) Neut % (Auto) Lymph % (Auto) [place] % (Auto) Eos % (Auto) Baso % (Auto) Neut # (Auto) Lymph # (Auto) [place] # (Auto) Eos # (Auto) Baso # (Auto) Immature Gran # (Auto) Polychromasia Anisocytosis PT INR APTT PTT Ratio VBG pH VBG pCO2 VBG pO2 VBG HCO3 VBG O2 Saturation VBG Base Excess POC Sodium Sodium POC Potassium Potassium POC Chloride Chloride Carbon Dioxide POC Total CO2 Anion Gap POC Anion Gap POC BUN BUN Creatinine POC Creatinine Est Cr Clr Drug Dosing eGFR BUN/Creatinine Ratio Glucose POC Glucose POC Glucose (other) Calcium POC Ioniz Calcium Angie Troponin I High Sens Pending B-Natriuretic Peptide Albumin Pending Triglycerides Pending Cholesterol Pending VLDL Cholesterol, Calc Pending HDL Cholesterol Pending Cholesterol/HDL Ratio Pending Lipase Diagnostic Findings Chart reviewed. History and physical report reviewed. ECG personally reviewed from 09/06/2024 at 3:02 AM: Sinus rhythm 75 bpm. Poor R wave progression. Labs notable for elevated high-sensitivity troponin, initially 87 and increased to 746. Stable renal function, well-controlled LDL (June 2024), mild leukocytosis (chronic), normal hemoglobin, normal platelet count. Echo report from 02/22/2022 reviewed: Normal LV size, wall motion, systolic function. EF 65%. No significant valvular abnormalities reported. Cath report reviewed from 04/03/2020: 1. Severe multi-vessel coronary artery disease -70% earlymid LAD stenosis (iFR 0.83). Small D1 with 80% proximal stenosis. Patent mid LAD stent 99% distal circumflex stenosis. Mid circumflex stent patent. 99% distal RCA stenosis. PDA/PLB's fill in part via [id number] collaterals. 2. Elevated intracardiac filling pressure 3. Successful PCI of mid LAD with single drug-eluting stent (3.0 x 12 mm Niraj) overlapping proximal aspect of prior mid LAD stent. 4. Successful PCI of distal circumflex with single drug-eluting stent (2.25 x 15 mm Niraj; postdilated with 3.0 NC proximally) overlapping with distal aspect of prior mid circumflex stent CTA chest 09/06/2024: No PE. Diffuse groundglass haze in dependent portion of bilateral lower lobes, possibly due to insufficient inspiration per radiology. No obvious thoracic aortic dissection or aneurysm. Atherosclerotic changes with multifocal plaques involving descending thoracic aorta without significant stenosis. CTA abdomen/pelvis 09/06/2024: Cirrhosis of the liver with portal hypertension. Splenomegaly. Medications Administered Current Inpatient Medications Acetaminophen (Acetaminophen 325 Mg Tab) 650 mg PO Q4H PRN PRN Reason: pain Stop: 10/06/24 09:04 Al Hydrox/Mg Hydrox/Simethicone (Aluminum/Magnesium Susp 30 Ml Udc) 15 ml PO Q4H PRN PRN Reason: Dyspepsia Stop: 10/06/24 09:04 Albuterol (Albuterol Hfa 8 Gm Inhaler) 2 puffs INH Q4H PRN PRN Reason: shortness of breath or wheezing Stop: 10/06/24 09:04 Atorvastatin Calcium (Atorvastatin 40 Mg Tab) 80 mg PO QAM [facility] Stop: 10/06/24 09:04 Clopidogrel Bisulfate (Clopidogrel Bisulfate 75 Mg Tab) 75 mg PO QPM [facility] Stop: 10/06/24 20:59 Dextrose (Dextrose 50% 50 Ml Syringe) 25 - 50 ml IV UD PRN; Protocol PRN Reason: Hypoglycemia Protocol Stop: 10/06/24 06:31 Duloxetine HCl (Duloxetine Hcl 30 Mg Cap) 30 mg PO QAM [facility] Stop: 10/06/24 09:04 Duloxetine HCl (Duloxetine Hcl 60 Mg Cap) 60 mg PO QAM [facility] Stop: 10/06/24 09:04 Fluticasone/Vilanterol (Fluticasone/Vilanterol 100/25mcg 14 Puffs/Inhaler) 1 puffs INH QAM [facility]; Protocol Stop: 10/06/24 09:04 Glucagon (Glucagon For Inj 1 Mg Vial) 1 mg SQ UD PRN; Protocol PRN Reason: Hypoglycemia Protocol Stop: 10/06/24 06:31 Glucose (Glucose 40% Gel 15 Gm Tube) 15 - 30 gm PO UD PRN; Protocol PRN Reason: Hypoglycemia Protocol Stop: 10/06/24 06:31 Glucose (Glucose 10 Tab/Tube) 4 - 8 tab PO UD PRN; Protocol PRN Reason: Hypoglycemia Protocol Stop: 10/06/24 06:31 Hydroxyzine HCl (Hydroxyzine Hcl 25 Mg Tab) 25 mg PO Q8H PRN PRN Reason: anxiety Stop: 10/06/24 09:04 Heparin Sodium/Dextrose (Heparin 91370 Unit/500 Ml D5w) 25,000 units in 500 mls @ 18 mls/hr IV .Q24H AKASH; Protocol Stop: 10/06/24 05:59 Last Admin: 09/06/24 06:33 Dose: 900 units/hr, 18 mls/hr Insulin Aspart (Insulin Aspart Per Unit Charge) 0 units SC ACHS [facility] Stop: 10/06/24 11:29 Levothyroxine Sodium (Levothyroxine Sodium 100 Mcg Tablet) 100 mcg PO DAILYBB [facility] Stop: 10/06/24 09:04 Melatonin (Melatonin 3 Mg Tab) 3 mg PO HS PRN PRN Reason: Sleep Stop: 10/06/24 09:04 Methocarbamol (Methocarbamol 500 Mg Tablet) 500 mg PO TID PRN PRN Reason: Spasms Stop: 10/06/24 09:04 Miscellaneous (Carbohydrates For Hypoglycemia ) 15 - 30 gm PO UD PRN PRN Reason: Hypoglycemia Protocol Stop: 10/06/24 06:31 Miscellaneous Information (Pharmacy Glycemic Mgmt Consult) 1 each N/A UD PRN PRN Reason: Consult Stop: 10/06/24 06:31 Morphine Sulfate (Morphine Sulfate 2 Mg/Ml Carp) 2 mg IV Q3H PRN PRN Reason: Severe Pain (Scale 7, 8, 9,10) Stop: 09/20/24 09:04 Non-Formulary Medication (Liraglutide [Victoza 2-Isidro]) 0 mg SQ .COMPLEX [facility] Stop: 10/06/24 09:04 Ondansetron HCl (Ondansetron Inj 2 Mg/Ml 2 Ml Vial) 4 mg IV Q6H PRN PRN Reason: Nausea Stop: 10/06/24 09:04 Pantoprazole Sodium (Pantoprazole 40 Mg Tab) 40 mg PO QAM [facility] Stop: 10/06/24 09:04 Polyethylene Glycol (Polyethylene (Miralax) 17 Gm Pack) 17 gm PO DAILY PRN PRN Reason: Constipation Stop: 10/06/24 09:04 Pregabalin (Pregabalin 150 Mg Cap) 150 mg PO BID [facility] Stop: 10/06/24 09:04 Topiramate (Topiramate 50 Mg Tab) 50 mg PO BID [facility] Stop: 10/06/24 09:04 Trazodone HCl (Trazodone Hcl 50 Mg Tab) 150 mg PO HS [facility] Stop: 10/06/24 20:59 Umeclidinium [place] (Umeclidinium [place] 62.5mcg/Blister 7 Puffs/Inhaler) 1 puffs INH DAILY [facility] Stop: 10/06/24 09:04 PG Care Time/CCT Total # of Minutes Spent Total Time Spent with Patient: Total time spent is greater than 50% in coordination of care (as documented) at patient's floor/unit and/or counseling patient: Coding Level of Care Code 25493 INT INP/OBS CARE 3/75MIN Diagnoses Non-ST elevation RI (NSTEMI) I21.4 CAD (coronary artery disease) I25.10 S/P coronary artery stent placement Z95.5 Dyslipidemia E78.5 Hypertension I10 Chronic heart failure with preserved ejection fraction I50.32
[2024-09-06] MEDS: LANTUS PER UNIT CHARGE SQ ONE (09:39)
[2024-09-06] MEDS: ATORVASTATIN 40 MG TAB PO SCH (09:41)
[2024-09-06] MEDS: LEVOTHYROXINE SODIUM 100 MCG TABLET PO SCH (09:42)
[2024-09-06] MEDS: TOPIRAMATE 50 MG TAB PO SCH (09:43)
[2024-09-06] MEDS ORDERED: Nursing to Pharmacy Communication SCH (09:45)
[2024-09-06 09:52] LABS: Cholesterol 116.0 mg/dl (0-200); HDL Cholesterol 38.0 mg/dl; Triglycerides 122.0 mg/dl (0-150)
[2024-09-06] MEDS: INSULIN ASPART PER UNIT CHARGE SC STA (09:52)
[2024-09-06] MEDS: PREGABALIN 150 MG CAP PO SCH (09:53)
[2024-09-06] MEDS: UMECLIDINIUM BROMIDE 62.5MCG/BLISTER 7 PUFFS/INHALER INH SCH (09:53)
[2024-09-06] MEDS: FLUTICASONE/VILANTEROL 100/25MCG 14 PUFFS/INHALER INH SCH (09:54)
[2024-09-06] MEDS: INSULIN ASPART PER UNIT CHARGE SC SCH (09:58)
--- NOTE | 2024-09-06 10:47 | Pre Anesthesia Assessment ---
Date of Service September 06, 2024 Pre Sedation Assessment Vital Signs Temp Pulse Pulse Resp BP BP Pulse Ox 09/06/24 08:15 72 12 114/71 97 09/06/24 07:48 64 12 96/71 L 95 09/06/24 07:15 71 16 112/70 93 09/06/24 07:09 69 12 91/67 L 96 09/06/24 06:39 68 12 99/60 L 94 09/06/24 06:23 71 09/06/24 06:17 73 16 108/69 92 09/06/24 05:00 69 14 98/59 L 93 09/06/24 04:11 77 16 127/75 94 09/06/24 03:45 76 16 104/62 95 09/06/24 03:36 80 16 81/53 L 93 09/06/24 03:13 84 18 93 09/06/24 03:13 36.7 C 84 18 96/62 L 93 09/06/24 03:13 09/06/24 02:54 92 09/06/24 02:52 36.6 C 85 16 96/62 L 86 L 09/06/24 02:49 83 O2 Del Method O2 Flow Rate 09/06/24 08:15 Nasal Cannula 1 09/06/24 07:48 Nasal Cannula 1 09/06/24 07:15 Nasal Cannula 1 09/06/24 07:09 Nasal Cannula 1 09/06/24 06:39 Nasal Cannula 1 09/06/24 06:23 09/06/24 06:17 Nasal Cannula 1 09/06/24 05:00 Nasal Cannula 1 09/06/24 04:11 Nasal Cannula 1 09/06/24 03:45 Nasal Cannula 1 09/06/24 03:36 Nasal Cannula 1 09/06/24 03:13 Nasal Cannula 2 09/06/24 03:13 Nasal Cannula 2 09/06/24 03:13 Nasal Cannula 2 09/06/24 02:54 Nasal Cannula 2 09/06/24 02:52 Room Air 09/06/24 02:49 Cardiovascular + regular rate Respiratory normal respiratory effort, lungs clear to auscultation Pre-Sedation Airway Assessment Smoking Status: Heavy tobacco smoker Hx Sleep Apnea: No Hx Difficult Intubation: No Mallampati Class: IV ASA: ASA3 NPO Status Date of Last Intake of Fluids: 09/06/24 Time of Last Intake of Fluids: 09:00 Date of Last Intake of Solid Food: 09/06/24 Time of Last Intake of Solid Foods: 09:00 Procedure Planning Contraindications for Sedation: none Current Medications Reviewed: Yes Notes The planned sedation has been discussed with the patient. Informed Consent was obtained. I have identified the patient, determined the appropriateness of sedation and have assessed the patient immediately prior to the procedure. All medicine(s) and interventions are by my order.
[2024-09-06] MEDS ORDERED: INSULIN ASPART PER UNIT CHARGE SC SCH (11:30)
--- NOTE | 2024-09-06 12:12 | Cardiac Catheterization ---
[facility] Data: Rn Quality Cardiac Status Clinical evaluation leading to the procedure CAD Presenation: Non STEMI and Unstable angina Anginal Classification: CCS IV Heart Failure: No Cardiogenic Shock within 24 Hours: No Cardiac Arrest within 24 Hours: No Imaging Studies Past 6 Months: Yes Stress Studies Past 6 Months: No Coronary Anatomy Dominant: Right Diagnostic Physicians Name: Tim Rivera MD Status: Urgent Closure Device Percutaneous Entry Location: Radial Recommendations: PCI without planned CABG Cardiac Cath Procedure Full Procedure Date September 06, 2024 Pre-Procedure Diagnosis Pre-Procedure Diagnosis: Non STEMI AUC Score AUC Score: 9 Post-Procedure Diagnosis Post-Procedure Diagnosis: Severe CAD Procedure(s) Performed Procedure(s) Performed: Coronary Angiography and Left Heart Cath Barrel Rib Matting Machine Operator Tim Rivera MD Financial Engineer(s) Brittani Ovalles Estimated Blood Loss Estimated Blood Loss: < 20 Medication(s) Medication(s): Fentanyl, Heparin, Lidocaine 1%, Nicardipine and Versed Summary of Findings Procedures: 1. Coronary angiography 2. Left heart catheterization 3. Moderate sedation Indication: Mrs. Santiago is a pleasant 59-year-old female with known CAD s/p LAD and circumflex PCI and residual severe RCA CAD, dyslipidemia, type 2 diabetes, and heart failure with preserved EF. She presented with NSTEMI and ongoing angina. Urgent cardiac catheterization recommended. Coronary angiography: 1. Left main: No significant CAD. Large-caliber vessel. 2. Left anterior descending: Proximal LAD stent patent. Mid LAD stent with 90% in-stent restenosis. Apical LAD 70-80%. D1 proximal 95%. Large vessel. MIRTA- 3 flow in LAD system. 3. Circumflex: Large-caliber vessel. Proximal circumflex 30%. Mid circumflex stents patent. Distal circumflex 30-50%, at bifurcation of medium caliber OM. MIRTA-3 flow. 4. Right coronary artery: Dominant vessel. RCA has diffuse severe CAD within the proximal, mid, and distal RCA. Distal RCA 100%. There are right to right and [id number] collaterals. Left heart catheterization: 1. Left ventriculography was not performed. 2. No aortic stenosis. Xjbm-sl-ouer gradient across the aortic valve was 0. 3. LVEDP 13 mmHg. Moderate sedation: 1. Sedation start time: 11:30 AM 2. Sedation end time: 11:48 AM Procedural details: 1. Coronary angiography was performed via the right radial artery without known complication, with 6 Kosovan slender. 2. Coronary angiography of the RCA was performed with 5 Kosovan JR4 diagnostic catheter. 3. Coronary angiography of the left main was performed with 5 Kosovan JL 3.5 diagnostic catheter. Impression: 1. Severe CAD of mid LAD stent and D1, with diffuse severe CAD of the RCA and left to right and right to right collaterals. 2. Patent proximal LAD and mid circumflex stents. 3. Otherwise, nonobstructive CAD of circumflex. 4. No aortic stenosis. 5. Normal left-sided filling pressure. Plan: 1. Dr. Roblero of interventional cardiology was asked to review images and consider PCI given ongoing chest discomfort and elevated troponins. 2. Continue risk factor modification. 3. Cardiac rehab. Hemodynamics Rest Ao:: 109/57 Final Ao: 101/52 LV: 117/8/13 Recommendations Recommendations: PCI without planned CABG Specimens Specimens: None Radiation Exposure (mGy) 1003 mGy. Fluoro time 4.2 min. Contrast (mls) 35 ml Procedural Complication(s) None Disposition remains in labor relations specialist for PCI attempt I attest to the content of the Intraoperative Record and any orders documented therein. Any exceptions are noted below. [facility] Card Cath Procedure Codes Cardiac Catheterization Procedure 1: Cardiovascular Cath Procedures: 06070 Coronaries and LHC (+/-LV) Moderate Sedation Procedure 1: Sedation/Anesthesia: 02824 Mod Sedation by the same physician;Init15 Min Child Age 5 & Up Procedure 2: Sedation/Anesthesia: 01637 Mod Sedation by the same physician; Ea [id number] Minutes PG Care Time/CCT Total # of Minutes Spent Total Time Spent with Patient: Total time spent is greater than 50% in coordination of care (as documented) at patient's floor/unit and/or counseling patient:
[2024-09-06] MEDS: HEPARIN (PORCINE) 1000 UNIT/ML 10 ML (CATH LAB USE ONLY) ONE ×2 (13:15→13:16)
[2024-09-06] MEDS: MIDAZOLAM HCL 1 MG/ML 2ML VIAL ONE ×3 (13:15→13:17)
[2024-09-06] MEDS: NITROGLYCERIN/D5W 100MCG/ML 20ML SYR ONE (13:15)
--- NOTE | 2024-09-06 13:15 | Post Anesthesia Assessment ---
Date of Service September 06, 2024 Post Sedation Assessment Vital Signs Temp Pulse Pulse Resp BP BP BP 09/06/24 10:44 71 20 108/62 09/06/24 08:15 72 12 114/71 09/06/24 07:48 64 12 96/71 L 09/06/24 07:15 71 16 112/70 09/06/24 07:09 69 12 91/67 L 09/06/24 06:39 68 12 99/60 L 09/06/24 06:23 71 09/06/24 06:17 73 16 108/69 09/06/24 05:00 69 14 98/59 L 09/06/24 04:11 77 16 127/75 09/06/24 03:45 76 16 104/62 09/06/24 03:36 80 16 81/53 L 09/06/24 03:13 84 18 09/06/24 03:13 98.1 F 84 18 96/62 L 09/06/24 03:13 09/06/24 02:54 09/06/24 02:52 97.8 F 85 16 96/62 L 09/06/24 02:49 83 Pulse Ox O2 Del Method O2 Flow Rate 09/06/24 10:44 92 Room Air 09/06/24 08:15 97 Nasal Cannula 1 09/06/24 07:48 95 Nasal Cannula 1 09/06/24 07:15 93 Nasal Cannula 1 09/06/24 07:09 96 Nasal Cannula 1 09/06/24 06:39 94 Nasal Cannula 1 09/06/24 06:23 09/06/24 06:17 92 Nasal Cannula 1 09/06/24 05:00 93 Nasal Cannula 1 09/06/24 04:11 94 Nasal Cannula 1 09/06/24 03:45 95 Nasal Cannula 1 09/06/24 03:36 93 Nasal Cannula 1 09/06/24 03:13 93 Nasal Cannula 2 09/06/24 03:13 93 Nasal Cannula 2 09/06/24 03:13 Nasal Cannula 2 09/06/24 02:54 92 Nasal Cannula 2 09/06/24 02:52 86 L Room Air 09/06/24 02:49 Recovery Score Activity: Moves 4 extremities Respiration: Deep Breath/Cough Circulation: +/-20% PreAnes Value Consciousness: Fully Awake Oxygen Saturation: O2 needed for >90% Discharge Sedation Level of Care: Fast Track Phase II
[2024-09-06] MEDS: OPTIRAY 350 ONE (13:16)
[2024-09-06] MEDS: CLOPIDOGREL BISULFATE 300 MG TAB ONE (13:17)
[2024-09-06] MEDS: ASPIRIN 81 MG CHEW ONE (13:17)
--- NOTE | 2024-09-06 13:23 | Cardiac Catheterization ---
[facility] Data: Gas Flow Regulator Cardiac Status Clinical evaluation leading to the procedure CAD Presenation: Non STEMI Diagnostic Physicians Name: Mitul Roblero MD Closure Device Recommendations: PCI without planned CABG Cardiac Cath Procedure Full Procedure Date September 06, 2024 Pre-Procedure Diagnosis Pre-Procedure Diagnosis: Non STEMI AUC Score AUC Score: 8 Post-Procedure Diagnosis Post-Procedure Diagnosis: Severe CAD and Successful PCI Procedure(s) Performed Procedure(s) Performed: Coronary Angiography, PTCA, Drug Eluting Stent and IVUS Acoustic Intelligence Specialist Mitul Roblero MD Ram Car Operator(s) Brittani Tracy Estimated Blood Loss Estimated Blood Loss: 40 Medication(s) Medication(s): Fentanyl, Heparin, Lidocaine 1%, Nicardipine, Nitroglycerin and Versed Summary of Findings Indication: NSTEMI Access: 6 Fr right radial artery Catheters: EBU 3.5 guide Findings: For full details of patient's coronary angiography please see cath report dictated by Dr. Rivera. Briefly, patient found to have severe multivessel disease including 90% mid LAD in-stent restenosis and 95% proximal jailed D1 stenosis Decision to proceed with PCI. -- PCI -- Antithrombotic therapy: Heparin, clopidogrel Procedure: Short sheath exchanged for long 6 Fr sheath due to radial artery spasm Left main cannulated with EBU 3.5 guide Pre-procedure flow MIRTA 3 Aws Developer 50 wire passed across lesion into distal vessel Mid LAD lesion predilated with 2.5 compliant balloon Whisper wire placed into the jailed D1 Proximal D1 dilated with 2.0 balloon Bella IVUS catheter placed to mid LAD and pullback revealed mild diffuse disease extending back to just distal of takeoff of D1. Remainder of stent and proximal LAD with only mild disease. No significant left main disease. Dilated in-stent LAD lesion stented with 2.75 x 18 mm Xience drug-eluting stent. Majority of the stent overlapping distal aspect of prior stent change. Stents post-dilated with 3.5 noncompliant balloon IC vasodilators administered for spasm Repeat IVUS showed well-expanded, well apposed stents with no apparent edge complications. Proximal D1 predilated with 2.5 balloon at extended inflation. Post procedure MIRTA 3 flow in LAD and diagonal, stent well expanded with minimal residual stenosis and no apparent cardiac complications. Arterial Closure: TR band Summary: 1. Successful PCI of mid LAD in-stent restenosis with additional drug-eluting stent (2.75 x 18 mm Xience; postdilated with 3.5 NC). 2. Successful angioplasty of proximal aspect of jailed D1 with 2.5 balloon Recommendations: To PCU for continued monitoring Loaded with clopidogrel 600 mg in Gas Flow Regulator Continue dual-antiplatelet therapy for at least 1 year, likely extended P2Y12 in the setting of overlapping stents Continue ASCVD risk factor modification including smoking cessation. Hemodynamics Rest Ao:: 122/69/94 Final Ao: 155/77/112 LV: -- Recommendations Recommendations: PCI without planned CABG Specimens Specimens: None Radiation Exposure (mGy) 3815 Contrast (mls) 140 Anesthesia Moderate 8203-1320 Procedural Complication(s) None Disposition PCU I attest to the content of the Intraoperative Record and any orders documented therein. Any exceptions are noted below. [facility] Card Cath Procedure Codes Therapeutic Services & Ancillary Procedure 1: Cardiovascular Tx and Anc Procedures: 57449 IV Ultrasound (Coronary or Graft) Moderate Sedation Procedure 1: Sedation/Anesthesia: 45544 Mod Sedation by the same physician; Ea [id number] Minutes Angioplasty Procedure 1: Cardiovascular Angioplasty Procedures: 97247 PTCA; ea addl branch of a major cor art RC LC LD Stenting Procedure 1: Cardiovascular Stent Procedures: 14177 Perc transcatheter placement of intracoronary stent(s), with ang PG Care Time/CCT Total # of Minutes Spent Total Time Spent with Patient: Total time spent is greater than 50% in coordination of care (as documented) at patient's floor/unit and/or counseling patient:
[2024-09-06] MEDS: LIDOCAINE 1% LOCAL 20 ML VIAL ONE (14:12)
--- NOTE | 2024-09-06 14:19 | Hospitalist Progress Note ---
Date of Service September 06, 2024 Assessment & Plan (1) Non-ST elevation MA (NSTEMI): (2) Hypocalcemia: (3) Type 2 diabetes mellitus: Plan 59-year-old female PMHx T2DM with peripheral neuropathy, COPD/asthma, MICHAEL on CPAP, tobacco abuse, anxiety/depression/bipolar/insomnia, diastolic heart failure, CAD, dyslipidemia, HTN, hypothyroidism, fibromyalgia, CKD and peptic ulcer disease presenting for chest pain. ED evaluation reveals CBC with leukocytosis 12.09, stable H&H; VBG with pH 7.31; CMP glucose 165; troponin 87.1, pending repeat; lipase 27; CXR WNL; CTAP cirrhosis with portal hypertension, splenomegaly, atherosclerotic changes of aorta and iliac arteries, no acute findings; chest CTA no evidence of PE, diffuse groundglass haze with subpleural atelectasis, atherosclerotic changes of descending thoracic aorta; EKG NSR at 75 bpm.; Received 1L NSS and morphine 2 mg IV in ED. #Chest pain/NSTEMI CBC w/ leukocytosis of 12.09, stable H&H. BMP WNL; lipase WNL CXR negative Chest CTA: diffuse ground glass haze w/ subpleural atelectasis Troponin up-trended from 87.1 --> 210.5--> 746.5 Given ongoing CP patient taken to labor relations worker & found to have occlusions. PCI of mid LAD in stent w/ additional drug eluting stent & angioplasty of proximal aspect of jailed D1 w/ 2.5 balloon. (cath performed by Dr. Roblero) Given 600mg clopidogrel in labor relations worker --> continue DAPT for at least 1 year, likely extended in setting of overlapping stents. Echo: EF 55-60%; hypokinesis of apex; mild concentric LVH. No significant valvular abnormalities. Continue statin s/p heparin drip. Cardiology following. #Hypocalcemia Asymptomatic currently. Mildly decreased. Ca 8.5, albumin 3.9 Consider calcium carbonate BID AM BMP #T2DM H/o DMT2; Home regimen includes Jardiance, insulin aspart 12U TID + SSI, Toujeo 130U daily, pregabalin for neuropathy. Hold Jardiance, hold Victoza (? formulary), hold home insulin for full glycemic control while inpatient Lantus 50U BID to start -- adjust as appropriate SSI;BSG ACHS Pharm glycemic management consult placed, appreciate assistance - Adjust regimen as needed #COPD/asthma/MICHAEL on CPAP/tobacco use- No evidence of exacerbation; Previously followed with pulm; CPAP HS; Albuterol, Symbicort, Spiriva - continue medications #Anxiety/depression/bipolar/insomnia- Stable; duloxetine, hydroxyzine pamoate prn, trazodone - continue #Migraines- Stable, follows with neuro; Previously on Emgality (last dose 07/06/2024) but insurance no longer covers; Topiramate - continue topiramate #Hypothyroidism- Levothyroxine - continue #PUD/Gastritis- Pantoprazole - continue #FM- Duloxetine, pregabalin - continue Dispo: Admit, PCU VTE Prophylaxis: Heparin started, treatment dose Admission and Anticipated Discharge Date Admission Date: September 06, 2024 Chio Ruiz seen and examined this afternoon following her cardiac cath. She states her chest pain, N/V has resolved since the cath. Denies any additional complaints. Physical Exam Constitutional: WD/WN, vitals as above Respiratory: normal respiratory effort Cardiovascular: RRR, no murmur, no edema Skin: no rashes, warm and dry Neurologic: PERRL, EOMI, accommodation nl, no face palsy, no dysarthria Psychiatric: A+Ox3, euthymic affect Results & Data Results & Data Vital Signs (Past 12 Hours) Vital Signs Temp Pulse Pulse Resp BP BP BP 09/06/24 14:09 36.4 C L 71 16 109/72 09/06/24 13:58 36.4 C L 70 16 109/71 09/06/24 13:57 36.4 C L 70 16 109/71 09/06/24 13:40 74 18 126/76 09/06/24 13:25 77 20 127/78 09/06/24 10:44 71 20 108/62 09/06/24 08:15 72 12 114/71 09/06/24 07:48 64 12 96/71 L 09/06/24 07:15 71 16 112/70 09/06/24 07:09 69 12 91/67 L 09/06/24 06:39 68 12 99/60 L 09/06/24 06:23 71 09/06/24 06:17 73 16 108/69 09/06/24 05:00 69 14 98/59 L 09/06/24 04:11 77 16 127/75 09/06/24 03:45 76 16 104/62 09/06/24 03:36 80 16 81/53 L 09/06/24 03:13 84 18 09/06/24 03:13 36.7 C 84 18 96/62 L 09/06/24 03:13 09/06/24 02:54 09/06/24 02:52 36.6 C 85 16 96/62 L 09/06/24 02:49 83 Pulse Ox O2 Del Method O2 Flow Rate 09/06/24 14:09 90 Room Air 09/06/24 13:58 93 Room Air 09/06/24 13:57 93 Room Air 09/06/24 13:40 91 Room Air 09/06/24 13:25 91 Room Air 09/06/24 10:44 92 Room Air 09/06/24 08:15 97 Nasal Cannula 1 09/06/24 07:48 95 Nasal Cannula 1 09/06/24 07:15 93 Nasal Cannula 1 09/06/24 07:09 96 Nasal Cannula 1 09/06/24 06:39 94 Nasal Cannula 1 09/06/24 06:23 09/06/24 06:17 92 Nasal Cannula 1 09/06/24 05:00 93 Nasal Cannula 1 09/06/24 04:11 94 Nasal Cannula 1 09/06/24 03:45 95 Nasal Cannula 1 09/06/24 03:36 93 Nasal Cannula 1 09/06/24 03:13 93 Nasal Cannula 2 09/06/24 03:13 93 Nasal Cannula 2 09/06/24 03:13 Nasal Cannula 2 09/06/24 02:54 92 Nasal Cannula 2 09/06/24 02:52 86 L Room Air 09/06/24 02:49 PG Care Time/CCT Total # of Minutes Spent Total Time Spent with Patient: Total time spent is greater than 50% in coordination of care (as documented) at patient's floor/unit and/or counseling patient: Coding Level of Care Code 05944 SUB INP/OBS CARE 3/50MIN Diagnoses Non-ST elevation MA (NSTEMI) I21.4 Hypocalcemia E83.51 Type 2 diabetes mellitus E11.9
--- NOTE | 2024-09-06 15:05 | XCELERA ---
[id number]
[2024-09-06] MEDS: ACETAMINOPHEN 325 MG TAB PO PRN (15:34)
[2024-09-06 16:27] LABS: ANTI-Xa, UFH(UnfractionatedHep 0.85 IU/ml (0.3-0.7)
[2024-09-06] MEDS: LANTUS PER UNIT CHARGE SC SCH (20:38)
[2024-09-06] MEDS: CLOPIDOGREL BISULFATE 75 MG TAB PO SCH (20:44)
--- NOTE | 2024-09-06 22:40 | Electrocardiogram Report ---
Test Reason : Blood Pressure : */* mmHG Vent. Rate : 75 BPM Atrial Rate : 75 BPM P-R Int : 162 ms QRS Dur : 94 ms QT Int : 416 ms P-R-T Axes : 59 31 76 degrees QTcB Int : 464 ms Normal sinus rhythm Cannot rule out Anterior infarct (cited on or before 15-Mar-2022) Nonspecific T wave abnormality Abnormal ECG When compared with ECG of 15-Mar-2022 20:55, No significant change was found Confirmed by Tim Rivera ([id number]) on 09/06/2024 10:40:02 PM Referred By: REFERRED SELF Confirmed By: Tim Rivera
--- NOTE | 2024-09-06 22:42 | Electrocardiogram Report ---
Test Reason : Blood Pressure : */* mmHG Vent. Rate : 81 BPM Atrial Rate : 81 BPM P-R Int : 164 ms QRS Dur : 100 ms QT Int : 432 ms P-R-T Axes : 61 -68 54 degrees QTcB Int : 501 ms Normal sinus rhythm Left anterior fascicular block Inferior infarct , age undetermined Anterior infarct (cited on or before 15-Mar-2022) T wave abnormality, consider anterior ischemia Abnormal ECG When compared with ECG of 06-Sep-2024 03:02, Left anterior fascicular block is now Present T wave inversion more evident in Anterior leads Confirmed by Tim Rivera ([id number] on 09/06/2024 10:41:37 PM Referred By: REFERRED SELF Confirmed By: Tim Rivera
[2024-09-07 03:30] VITALS: RESP 17; TEMP 97.5; O2SAT 90
[2024-09-07] MEDS: POLYETHYLENE (MIRALAX) 17 GM PACK PO PRN (06:25)
[2024-09-07 07:24] LABS: Hematocrit (blood only) 44.3 % (37.0-47.0); Hemoglobin 14.1 g/dl (12.0-16.0); Mean Corpuscular Hemoglobin 24.7 pg (25.0-34.0); Mean Corpuscular Volume 77.7 fL (80.0-100.0); Platelet Count 123 K/uL (130-400); RDW Standard Deviation 63.0 fL (36.4-46.3); Red Blood Count 5.70 M/uL (4.20-5.40); White Blood Count 10.41 K/ul (4.8-10.8)
[2024-09-07] MEDS: LANTUS PER UNIT CHARGE SQ SCH (08:30)
[2024-09-07] MEDS: ASPIRIN 81 MG ECTAB PO SCH (08:33)
[2024-09-07 08:46] LABS: Anion Gap 7.0 (3-11); Blood Urea Nitrogen 15.0 mg/dl (6-23); Calcium 8.7 mg/dl (8.6-10.3); Carbon Dioxide 27.0 mmol/L (21-32); Chloride 106.0 mmol/L (98-107); Creatinine Clr Calc Pharmacy 88.1 ml/min; Glucose 100.0 mg/dl (70-99(Fasting)); Potassium 4.2 mmol/L (3.5-5.1); Sodium 140.0 mmol/L (136-145)
--- NOTE | 2024-09-07 10:49 | Discharge Summary ---
Discharge Summary Date of Service September 07, 2024 Principal Dx & Hospital Course #1 = Principal Diagnosis (1) Non-ST elevation VT (NSTEMI): (2) Hypocalcemia: (3) Type 2 diabetes mellitus: Plan #Chest pain/NSTEMI 59-year-old female PMHx T2DM with peripheral neuropathy, COPD/asthma, MICHAEL on CPAP, tobacco abuse, anxiety/depression/bipolar/insomnia, diastolic heart failure, CAD, dyslipidemia, HTN, hypothyroidism, fibromyalgia, CKD and peptic ulcer disease presenting for chest pain. Inital evaluation reveals CXR WNL; CTAP cirrhosis with portal hypertension, splenomegaly, atherosclerotic changes of aorta and iliac arteries, no acute findings; chest CTA no evidence of PE, diffuse groundglass haze with subpleural atelectasis, atherosclerotic changes of descending thoracic aorta; EKG NSR at 75 bpm. Troponin 1537 - with ongoing Chest pain, taken to the lab manager with Dr. Roblero. & found to have occlusions. PCI of mid LAD in stent w/ additional drug eluting stent & angioplasty of proximal aspect of jailed D1 w/ 2.5 balloon. Continue DAPT for at least 1 year, likely extended in setting of overlapping stents. Echo: EF 55-60%; hypokinesis of apex; mild concentric LVH. No significant valvular abnormalities. Discussed cholesterol meds - confirmed she is taking her atorvastatin, recently restarted the repatha. has NOT been taking her Zetia, defer to cardiology outpatient if needs to be restarted. Discussed the importance of smoking cessation with her and her . Rec outpatient cardiology follow up. #Hypocalcemia - Asymptomatic currently. Ca 8.5. Improved on its own - 8.7 day of discharge #T2DM - continue home regimen #COPD/asthma/MICHAEL on CPAP/tobacco use- No evidence of exacerbation; Previously followed with pulm; CPAP HS; Albuterol, Symbicort, Spiriva - continue medications #Anxiety/depression/bipolar/insomnia- Stable; duloxetine, hydroxyzine pamoate prn, trazodone - continue #Migraines- Stable, follows with neuro; Previously on Emgality (last dose 07/06/2024) but insurance no longer covers; Topiramate - continue topiramate #Hypothyroidism- Levothyroxine - continue #PUD/Gastritis- Pantoprazole - continue #FM- Duloxetine, pregabalin - continue Dispo; discharge to home today Notes For Next Care Provider ? need for zetia Medication Changes From Visit Aspirin 81mg daily added Admission HPI Per Admitting Provider 59-year-old female PMHx T2DM with peripheral neuropathy, COPD/asthma, MICHAEL on CPA P, tobacco abuse, anxiety/depression/bipolar/insomnia, diastolic heart failure, CAD, dyslipidemia, HTN, hypothyroidism, fibromyalgia, CKD and peptic ulcer disease presenting for chest pain. History of cardiac stents in 2008 and 2009. Received 345 mg aspirin, 2 doses of nitroglycerin, oxygen, and fentanyl via EMS. The evening CHIEF OF SERVICE she started to have onset of left sided chest pressure/pain that radiated into her back. She tried to go to sleep, but states that the pain was consistent and did not let up. States that at its worst the pain was rated a >10 out of 10 on the pain scale, and is currently a 7 out of 10 the pain scale. States that it is an achy sensation that radiates through to her back. She denies any radiation to her arm, right side of her chest, neck, or jaw. She states this feels identical to her prior cardiac events. She does admit to some dyspnea specifically when laying flat or with minimal exertion such as walking. Denies palpitations, but feels as though her heart is "pounding". She admits to having an episode of diaphoresis at the peak of her pain. She did have episodes of emesis 4-5 times prior to arrival. She is not currently chest pain-free, states that the pain is still 7 out of 10 on the pain scale. She is resting comfortably in bed. She denies abdominal pain, diarrhea/constipation, URI symptoms, LUTS, fever/chills, weakness, numbness/tingling, or syncope. States "my medications are in the chart and they are the exact same as listed." ED evaluation reveals CBC with leukocytosis 12.09, stable H&H; VBG with pH 7.31; CMP glucose 165; troponin 87.1, pending repeat; lipase 27; CXR WNL; CTAP cirrhosis with portal hypertension, splenomegaly, atherosclerotic changes of aorta and iliac arteries, no acute findings; chest CTA no evidence of PE, diffuse groundglass haze with subpleural atelectasis, atherosclerotic changes of descending thoracic aorta; EKG NSR at 75 bpm.; Received 1L NSS and morphine 2 mg IV in ED. Please see Dr. Bonner's attestation for adjustments/additions to treatment plan. Discharge Exam General: NAD, VS as above Resp: normal respiratory effort,diminished in the bases CV: RRR, no murmur, Abd: normal bowel sounds, non tender, no hepatosplenomegaly Extremities: Moves all extremities, no edema Neuro: A&O x3, Skin: intact, no lesions noted Discharge Plan Discharge Items Patient Disposition: Home - Self-Care Reason For Visit: CP Discharge Diagnosis: NSTEMI Condition on Discharge: Fair Activity: Per Instructions section Driving/Machine Use: No limitations Weightbearing: Full weightbearing Non-emergency contact: Primary Care Provider and Product Test Specialist Call non-emergency contact if: you have any medication questions, your symptoms worsen, your pain is worsening and your temperature is above 101 Follow-up/Referrals: Swati Berger DO [Primary Care Provider] - (Follow up within one week ) Mitul Roblero MD [Physician] - (NSTEMI / stent placement - follow up ) Diet: Carb Consistent or DM2 and Heart Healthy Addtl Attending Provider Instructions: Ms. Horton, You were hospitalized after having chest pain, found to be an NSTEMI and had two stents placed with Dr. Roblero. As we discussed you should continue repatha and atorvastatin. You can discuss with cardiology if you need to resume your zetia. Continue to take your plavix, you have been started on baby aspirin 81mg daily. The duration of this will be determined by your acetylene cutter, but I would guess it would be at least 6 months. I have sent this in as a prescription for you, but can also be purchased over the counter if that is not covered. Anything you can do to quit smoking is going to be beneficial to your health. Instructions about your Cath site below. Addtl Machine Sand Mixer Provider Instructions: ACTIVITY RECOMMENDATIONS: Excess manipulation of the wrist should be avoided for the next 24-48 hours. * No lifting over 2 pounds (approximately a 1/2 gallon of milk) with the utilized arm for 24 hours. * No strenuous activity such as bowling or tennis for 3 days. * Keep the site of the procedure covered with a bandage for 24 hours. *You may shower the day after the procedure. Do not take a tub bath or submerge the puncture site in water for the next 3 days. *Do not operate any motorized equipment for 3 days. SPECIAL CARE INSTRUCTIONS: The site may be slightly bruised and sore following your procedure. Should any of the following occur, contact the Dr. who performed your procedure. 1. Redness/inflammation, swelling, chills, or fever, or colored drainage at procedure site within 3-7 days after your procedure. 2. Coldness, discoloration, ongoing numbness, severe pain, or swelling. Expect mild tingling of hand and tenderness at the puncture site for up to three days. If this persists beyond three days, or other symptoms develop, notify the Dr. who performed your procedure. BLEEDING: If the procedure site on your wrist begins to bleed, do not panic 1. Place 1 or 2 fingers firmly just slightly above the insertion site to stop the bleeding. You may be able to feel your pulse as you hold pressure. 2. Lift your finger after 5 minutes to see if the bleeding has stopped. 3. Once the bleeding has stopped, gently wipe the wrist area clean with a bandage. * If the bleeding from your wrist does not stop after 10 minutes, or if there is a large amount of bleeding or spurting, call 911 (do not drive yourself to the hospital). SKIN IRRITATION: * You may experience some redness and/or swelling in the area where radiation was administered. If any skin irritation occurs, please contact your family physician. FOLLOW UP VISIT: Keep any scheduled doctor appointments. Pending Studies at Discharge: No Stand-Alone Forms: [employer], Smoking Cessation Medications and DC Order Prescriptions: New aspirin 81 mg Tablet,Delayed Release (Dr/Ec) 81 mg PO QAM Qty: 30 0RF Continued (DME) compression stockings See Rx Instructions .Route .MEDSUPPLY Qty: 1 5RF Rx Instructions: 20-30 [facility]; (DME) CPAP Supplies Misc See Rx Instructions .ROUTE .MEDSUPPLY Qty: 1 0RF Rx Instructions: CPAP supplies (DME) Auto Titrating CPAP Misc See Rx Instructions .ROUTE .MEDSUPPLY Qty: 1 0RF Rx Instructions: 5-15 cm h20 (DME) Walking Cane Misc See Rx Instructions .Route Qty: 1 0RF Rx Instructions: As directed due to Neuropathy. (DME) pen needle, diabetic [BD Ultra-Fine Short Pen Needle] 31 gauge x 5/16" needle See Rx Instructions .ROUTE .MEDSUPPLY Qty: 200 5RF Rx Instructions: Inject 4 times daily topiramate 50 mg tablet 50 mg PO BID Qty: 180 1RF varenicline tartrate 1 mg tablet 1 mg PO BID Qty: 168 0RF Patient Comments: has not been taking 07/12/24 hydroxyzine pamoate [Vistaril] 25 mg capsule 25 mg PO Q8H PRN (Reason: anxiety) Qty: 270 0RF empagliflozin 25 mg tablet 25 mg PO QAM Qty: 90 1RF methocarbamol 500 mg tablet 500 mg PO TID PRN (Reason: Spasms) Qty: 30 0RF liraglutide [Victoza 2-Isidro] 0.6 mg/0.1 mL (18 mg/3 mL) pen injector See Rx Instructions subcut .COMPLEX Qty: 6 2RF Rx Instructions: inject 0.6mg subcutaneously once daily x 7 days; then 1.2mg daily (DME) [employer] Alfonso 3 Plus Sensor Device See Rx Instructions .Route Qty: 2 4RF Rx Instructions: Change sensor every 15 days glucagon 3 mg/actuation spray,non-aerosol 3 mg intranasal ONCE PRN (Reason: severe hypoglycemia) Qty: 2 1RF Rx Instructions: Pt states she may need new script for this albuterol sulfate 90 mcg/actuation HFA aerosol inhaler 2 puff INH Q4H PRN (Reason: shortness of breath or wheezing) Qty: 8.5 2RF cyanocobalamin (vitamin B-12) 1,000 mcg/mL solution 1,000 mcg IM ONCE Qty: 1 0RF (DME) OneTouch Verio test strips Strip See Rx Instructions .Route Qty: 100 5RF Rx Instructions: Test glucose up to 3 times daily (DME) lancets [Advanced Travel Lancets] 28 gauge misc See Rx Instructions .Route Qty: 100 2RF Rx Instructions: As directed pregabalin 150 mg capsule 150 mg PO BID Qty: 60 0RF clopidogrel [Plavix] 75 mg tablet 75 mg PO QPM Qty: 90 1RF insulin aspart U-100 100 unit/mL (3 mL) insulin pen 12 unit .ROUTE TID Qty: 30 5RF Rx Instructions: 12 units three times a day before meals + SS nitroglycerin 0.4 mg tablet, sublingual 0.4 mg sublingual Q5M PRN (Reason: chest pain) Qty: 20 2RF Rx Instructions: do not exceed 3 doses per episode Spiriva Respimat 2.5 mcg/actuation mist 2 puff inhalation DAILY Qty: 4 2RF acetaminophen 325 mg Tablet 650 mg PO Q4H PRN (Reason: pain) Qty: 20 0RF Repatha SureClick 140 mg/mL pen injector 140 mg subcut Q14D Patient Comments: last dose 07/06/24 atorvastatin 80 mg tablet 80 mg PO QAM polyethylene glycol 3350 [Miralax] 17 gram powder in packet 17 g PO BID levothyroxine 100 mcg tablet 100 mcg PO QAM pantoprazole 40 mg tablet,delayed release (DR/EC) 40 mg PO QAM trazodone 150 mg tablet 150 mg PO HS fluticasone propionate [Flonase Allergy Relief] 50 mcg/actuation spray,suspension 2 spray intranasal DAILY PRN (Reason: Congestion) Rx Instructions: administer into each nostril duloxetine 30 mg capsule,delayed release(DR/EC) 30 mg PO QAM Rx Instructions: Take 30mg w/ 60mg to equal 90mg by mouth every morning duloxetine 60 mg capsule,delayed release(DR/EC) 60 mg PO QAM Rx Instructions: Take 60mg w/ 30mg to equal 90mg by mouth every morning budesonide-formoterol [Symbicort] 160-4.5 mcg/actuation HFA aerosol inhaler 2 puff inhalation QAM insulin glargine U-300 conc [Toujeo Max U-300 SoloStar] 300 unit/mL (3 mL) insulin pen 130 unit subcut QAM Rx Instructions: Inject 130 units subcutaneously once daily for long-acting insulin coverage/QAM Held ezetimibe 10 mg tablet 10 mg PO DAILY Qty: 90 2RF Hold Instructions: Provider's Order - discuss with cardiology Patient Comments: not taking 07/12/24 Emgality Pen 120 mg/mL pen injector 120 mg subcut MONTHLY Hold Instructions: Provider's Order Patient Comments: not taking at present, ins will not cover 07/12/24 No Action (DME) Dexcom G7 Sensor Device See Rx Instructions .Route Qty: 3 10RF Rx Instructions: Change sensor every 10 days, check glucose 4 times daily Discharge Orders: Discharge Order (Routine); Ordered 09/07/24 Ordered By: Phyllis Farias/Other Patient Handouts: Quitting Smoking, Kicking the Smoking Habit, ED How to Quit Smoking Admission Data Admit Date/Time: 09/06/24 06:07 Attending Provider: Filomena Cleary Admit Provider: Catherine Bonner Primary Care Provider: Swati Berger Other Providers: Catherine Bonner; Mitul Roblero Other Interventions: Discharge Summary Assessment (RN) Last Done: 09/07/24 11:06 Hospital Stay Data Consultations 09/06/24 05:19 ED Decision to Admit Stat 09/06/24 09:05 Consult Cardiology Routine Procedures Performed Operation Date: 09/06/24 11:00 Actual Procedures s Cineradiography w/Routine Exam - Tim Rivera MD p Drug Eluting Stent SGl Vessel - Mitul Roblero MD p Cath, Left with Cors and Vent - Tim Rivera MD s POBA each ADDTL Vessel - Mitul Roblero MD s IVUS Coronary Single Vessel - Mitul Roblero MD Diagnostic Imagining Performed Chest X-Ray 09/06/24 02:56 EXAM: XR chest 1V portable CLINICAL HISTORY: Chest pain, nonspecific TECHNIQUE: An X-ray image of the chest is obtained in AP projection. COMPARISON: Prior CR, March 15, 2022, was reviewed. FINDINGS: Pulmonary Parenchyma: Lungs are clear bilaterally. No evidence of consolidation, collapse, or focal opacities. No pulmonary nodules are identified. No evidence of pleural effusion or pleural thickening. Heart and Mediastinum: Heart size and shape are normal. No mediastinal widening or masses. No hilar or mediastinal lymphadenopathy. Bony Thorax: Bony thorax appears intact without fractures or deformities. Soft Tissues: Soft tissues overlying the chest wall are unremarkable. Chest leads are seen IMPRESSION: 1. Normal chest X-ray. No acute cardiopulmonary abnormalities are identified. 2. No interval changes. Electronically signed by Sathish Navas 09-06-2024 03:51 AM Abdomen/Pelvis CTA 09/06/24 03:43 EXAM: CT angio abdomen pelvis w con CLINICAL HISTORY: ro dissection TECHNIQUE: Contrast enhanced thin slice CT angiography scan of the abdominal aorta was performed with intravenous contrast. Angiographic images were processed, 3D MIP images were acquired for interpretation. Contiguous axial images were obtained. Reformatted coronal and sagittal images were also reviewed. If IV contrast material had not been administered, the likelihood of detecting abnormalities relevant to the patients condition would have been substantially decreased. CT scan was performed according to ALARA (as low as reasonable achievable). COMPARISON: 17:51:59 TECHNICAL SERVICES CONSULTANT . FINDINGS: Diffuse atherosclerotic calcification is noted involving aorta iliac arteries. Abdominal aorta is normal in course, calibre and opacification. Origin of coeliac artery, superior mesenteric artery , bilateral main renal and lumbar arteries are normal with no hemodynamically significant ostial stenosis noted. Bilateral common, external and internal iliac arteries are normal in course, caliber and opacification. The liver appears relatively smaller in size and shows hypertrophied caudate lobe. It shows mild heterogeneous parenchyma with irregular nodular surface. Portal vein appears dilated with multiple collaterals are noted adjacent to the perigastric/peripancreatic space - suggestive of portal hypertension. The spleen appears enlarged in size measures about 15 cm Solid abdominal organs including pancreas and bilateral kidneys reveal no significant abnormality. Bowel loops are grossly unremarkable. No evidence of ascites. IMPRESSION: 1. Cirrhosis of liver with portal hypertension-stable. 2. Splenomegaly.-stable. 3. Atherosclerotic changes are noted involving aorta and iliac arteries.-stable. 4. No obvious aortic dissection or aneurysm. 5. No other new interval abnormality since prior study. Electronically signed by Jayden Johnson 09-06-2024 05:12 AM Chest CTA 09/06/24 03:43 EXAM: CT angio chest dissec wo/w con CLINICAL HISTORY: ro dissection TECHNIQUE: Contiguous axial images were obtained from the neck base through the upper abdomen without and with intravenous administration of iodinated contrast material. Angiographic images were processed, 3D MIP images were acquired for interpretation. If IV contrast material had not been administered, the likelihood of detecting abnormalities relevant to the patient's condition would have been substantially decreased. Coronal and sagittal 3-D MIPs were likewise performed and indicated to increase the sensitivity of detectin diffuse clinically relevant pathology. CT scan was performed according to ALARA (as low as reasonable achievable). COMPARISON: 17:55:08 TECHNICAL SERVICES CONSULTANT. FINDINGS: Atherosclerotic changes with multifocal plaques are noted involving descending thoracic aorta without hemodynamically significant stenosis. Diffuse ground-glass hase with subpleural atelectasis are noted involving dependent portion of both lower lobes - suggest possibility of due to insufficient inspiration. Adequate contrast bolus without evidence of pulmonary embolism. The central airways are patent. Rest of lungs are clear. No pleural effusion. The heart, Rest of aorta, and pulmonary arteries are of normal size and configuration. There are no appreciable coronary artery and aortic atherosclerotic calcifications. No pericardial effusion is identified. The thyroid is unremarkable. No mediastinal, hilar, or axillary lymphadenopathy is noted. No suspicious lytic or sclerotic osseous lesions are identified. IMPRESSION: 1. No evidence of pulmonary embolism. 2. Diffuse ground-glass hase with subpleural atelectasis are noted involving dependent portion of both lower lobes - suggest possibility of due to insufficient inspiration.-new. 3. No obvious dissection or aneurysm. 4. Atherosclerotic changes with multifocal plaques are noted involving descending thoracic aorta without hemodynamically significant stenosis.-stable. Electronically signed by Jayden Johnson 09-06-2024 04:31 AM Pending Results Patient Have Any Pending Studies at Discharge: No Discharge Instructions Given to Patient (Per Discharging Provider) Ms. Horton, [place] were hospitalized after having chest pain, found to be an NSTEMI and had two stents placed with Dr. Roblero. As we discussed you should continue repatha and atorvastatin. You can discuss with cardiology if you need to resume your zetia. Continue to take your plavix, you have been started on baby aspirin 81mg daily. The duration of this will be determined by your acetylene cutter, but I would guess it would be at least 6 months. I have sent this in as a prescription for you, but can also be purchased over the counter if that is not covered. Anything you can do to quit smoking is going to be beneficial to your health. Instructions about your Cath site below. Total Time Total Time Spent Total Time Spent (In Minutes): Time spent day of discharge 40 minutes including direct patient care, medication reconciliation, documentation, review of labs and images, and coordination of care. Coding Level of Care Code 63186 INP/OBS DISCH >30 MIN Diagnoses Non-ST elevation VT (NSTEMI) I21.4 Hypocalcemia E83.51 Type 2 diabetes mellitus E11.9
[2024-09-07 11:07] VITALS: BP 108/69; PULSE 76
--- NOTE | 2024-09-07 11:48 | Cardiology Progress Note ---
Date of Service September 07, 2024 Assessment & Plan (1) Non-ST elevation MS (NSTEMI): (2) CAD (coronary artery disease): (3) S/P coronary artery stent placement: (4) Dyslipidemia: (5) Hypertension: (6) Chronic heart failure with preserved ejection fraction: Admission and Anticipated Discharge Date Admission Date: September 06, 2024 Subjective I presented to pt room to round but she had already been discharged. Results & Data Vital Signs (Past 12 Hours) Vital Signs Temp Pulse Pulse Resp BP BP Pulse Ox 09/07/24 11:06 36.4 C L 76 17 117/68 108/69 90 09/07/24 07:43 75 09/07/24 03:29 36.4 C L 76 17 117/68 90 O2 Del Method 09/07/24 11:06 09/07/24 07:43 09/07/24 03:29 Room Air Intake & Output 09/05/24 09/06/24 09/07/24 09/08/24 06:59 06:59 06:59 06:59 Intake Total 1000 / 1000 558.3 / 558.3 Balance 1000 / 1000 558.3 / 558.3 Weight 230 lb 6.129 oz 230 lb 9.656 oz 230 lb 9.656 oz Laboratory Results Laboratory Results - last 24 hr 09/06/24 09/06/24 09/06/24 11:38 12:24 12:57 WBC RBC Hgb Hct MCV MCH MCHC RDW Std Deviation RDW Coeff of Caitlin Plt Count MPV Activ Coag Time Kaolin 124 256 H 291 H Heparin Anti-Xa, Unfract Sodium Potassium Chloride Carbon Dioxide Anion Gap BUN Creatinine Est Cr Clr Drug Dosing eGFR BUN/Creatinine Ratio Glucose POC Glucose Calcium Troponin I High Sens 09/06/24 09/06/24 09/06/24 13:56 14:50 15:56 WBC RBC Hgb Hct MCV MCH MCHC RDW Std Deviation RDW Coeff of Caitlin Plt Count MPV Activ Coag Time Kaolin Heparin Anti-Xa, Unfract 0.85 H* Sodium Potassium Chloride Carbon Dioxide Anion Gap BUN Creatinine Est Cr Clr Drug Dosing eGFR BUN/Creatinine Ratio Glucose POC Glucose 87 114 H Calcium Troponin I High Sens 1520.8 H* D 09/06/24 09/06/24 09/07/24 20:02 20:21 05:55 WBC 10.41 RBC 5.70 H Hgb 14.1 Hct 44.3 MCV 77.7 L MCH 24.7 L MCHC 31.8 L RDW Std Deviation 63.0 H RDW Coeff of Caitlin 23.2 H Plt Count 123 L MPV 10.4 Activ Coag Time Kaolin Heparin Anti-Xa, Unfract Sodium 140 Potassium 4.2 Chloride 106 Carbon Dioxide 27 Anion Gap 7 BUN 15 Creatinine 0.81 D Est Cr Clr Drug Dosing 88.1 eGFR 83.57 BUN/Creatinine Ratio 18.5 Glucose 100 H POC Glucose 121 H Calcium 8.7 Troponin I High Sens 1532.7 H* 09/07/24 09/07/24 07:49 11:18 WBC RBC Hgb Hct MCV MCH MCHC RDW Std Deviation RDW Coeff of Caitlin Plt Count MPV Activ Coag Time Kaolin Heparin Anti-Xa, Unfract Sodium Potassium Chloride Carbon Dioxide Anion Gap BUN Creatinine Est Cr Clr Drug Dosing eGFR BUN/Creatinine Ratio Glucose POC Glucose 116 H 164 H Calcium Troponin I High Sens Diagnostic Findings Labs reviewed and notable for stable renal function, normal potassium, very mild thrombocytopenia, normal hemoglobin. Cardiac cath report reviewed from 09/06/2024: Coronary angiography: 1. Left main: No significant CAD. Large-caliber vessel. 2. Left anterior descending: Proximal LAD stent patent. Mid LAD stent with 90% in-stent restenosis. Apical LAD 70-80%. D1 proximal 95%. Large vessel. MIRTA- 3 flow in LAD system. 3. Circumflex: Large-caliber vessel. Proximal circumflex 30%. Mid circumflex stents patent. Distal circumflex 30-50%, at bifurcation of medium caliber OM. MIRTA-3 flow. 4. Right coronary artery: Dominant vessel. RCA has diffuse severe CAD within the proximal, mid, and distal RCA. Distal RCA 100%. There are right to right and [id number] collaterals. Left heart catheterization: 1. Left ventriculography was not performed. 2. No aortic stenosis. [id number]-yl-dial gradient across the aortic valve was 0. 3. LVEDP 13 mmHg. Interventional Summary: 1. Successful PCI of mid LAD in-stent restenosis with additional drug-eluting stent (2.75 x 18 mm Xience; postdilated with 3.5 NC). 2. Successful angioplasty of proximal aspect of jailed D1 with 2.5 balloon Medications Administered Current Inpatient Medications Acetaminophen (Acetaminophen 325 Mg Tab) 650 mg PO Q4H PRN PRN Reason: pain Stop: 10/06/24 09:04 Last Admin: 09/06/24 15:34 Dose: 650 mg Al Hydrox/Mg Hydrox/Simethicone (Aluminum/Magnesium Susp 30 Ml Udc) 15 ml PO Q4H PRN PRN Reason: Dyspepsia Stop: 10/06/24 09:04 Albuterol (Albuterol Hfa 8 Gm Inhaler) 2 puffs INH Q4H PRN PRN Reason: shortness of breath or wheezing Stop: 10/06/24 09:04 Aspirin (Aspirin 81 Mg Ectab) 81 mg PO QAM AKASH Stop: 10/07/24 08:59 Last Admin: 09/07/24 08:33 Dose: 81 mg Atorvastatin Calcium (Atorvastatin 40 Mg Tab) 80 mg PO QAM AKASH Stop: 10/06/24 09:04 Last Admin: 09/07/24 08:31 Dose: 80 mg Clopidogrel Bisulfate (Clopidogrel Bisulfate 75 Mg Tab) 75 mg PO QPM AKASH Stop: 10/06/24 20:59 Last Admin: 09/06/24 20:44 Dose: 75 mg Dextrose (Dextrose 50% 50 Ml Syringe) 25 - 50 ml IV UD PRN; Protocol PRN Reason: Hypoglycemia Protocol Stop: 10/06/24 06:31 Duloxetine HCl (Duloxetine Hcl 30 Mg Cap) 30 mg PO QAM AKASH Stop: 10/06/24 09:04 Last Admin: 09/07/24 08:31 Dose: 30 mg Duloxetine HCl (Duloxetine Hcl 60 Mg Cap) 60 mg PO QAM AKASH Stop: 10/06/24 09:04 Last Admin: 09/07/24 08:31 Dose: 60 mg Fluticasone/Vilanterol (Fluticasone/Vilanterol 100/25mcg 14 Puffs/Inhaler) 1 puffs INH QAM AKASH; Protocol Stop: 10/06/24 09:04 Last Admin: 09/07/24 08:32 Dose: 1 puffs Glucagon (Glucagon For Inj 1 Mg Vial) 1 mg SQ UD PRN; Protocol PRN Reason: Hypoglycemia Protocol Stop: 10/06/24 06:31 Glucose (Glucose 40% Gel 15 Gm Tube) 15 - 30 gm PO UD PRN; Protocol PRN Reason: Hypoglycemia Protocol Stop: 10/06/24 06:31 Glucose (Glucose 10 Tab/Tube) 4 - 8 tab PO UD PRN; Protocol PRN Reason: Hypoglycemia Protocol Stop: 10/06/24 06:31 Hydroxyzine HCl (Hydroxyzine Hcl 25 Mg Tab) 25 mg PO Q8H PRN PRN Reason: anxiety Stop: 10/06/24 09:04 Insulin Aspart (Insulin Aspart Per Unit Charge) 0 units SC ACHS [facility] Stop: 10/06/24 09:39 Last Admin: 09/07/24 08:29 Dose: 11 units Insulin Glargine (Lantus Per Unit Charge) 35 units SQ DAILY AKASH Stop: 10/07/24 08:59 Last Admin: 09/07/24 08:30 Dose: 35 units Levothyroxine Sodium (Levothyroxine Sodium 100 Mcg Tablet) 100 mcg PO DAILYBB [facility] Stop: 10/06/24 09:04 Last Admin: 09/07/24 06:25 Dose: 100 mcg Melatonin (Melatonin 3 Mg Tab) 3 mg PO HS PRN PRN Reason: Sleep Stop: 10/06/24 09:04 Methocarbamol (Methocarbamol 500 Mg Tablet) 500 mg PO TID PRN PRN Reason: Spasms Stop: 10/06/24 09:04 Miscellaneous (Carbohydrates For Hypoglycemia ) 15 - 30 gm PO UD PRN PRN Reason: Hypoglycemia Protocol Stop: 10/06/24 06:31 Miscellaneous Information (Pharmacy Glycemic Mgmt Consult) 1 each N/A UD PRN PRN Reason: Consult Stop: 10/06/24 06:31 Morphine Sulfate (Morphine Sulfate 2 Mg/Ml Carp) 2 mg IV Q3H PRN PRN Reason: Severe Pain (Scale 7, 8, 9,10) Stop: 09/20/24 09:04 Ondansetron HCl (Ondansetron Inj 2 Mg/Ml 2 Ml Vial) 4 mg IV Q6H PRN PRN Reason: Nausea Stop: 10/06/24 09:04 Pantoprazole Sodium (Pantoprazole 40 Mg Tab) 40 mg PO QAM [facility] Stop: 10/06/24 09:04 Last Admin: 09/07/24 08:32 Dose: 40 mg Polyethylene Glycol (Polyethylene (Miralax) 17 Gm Pack) 17 gm PO DAILY PRN PRN Reason: Constipation Stop: 10/06/24 09:04 Last Admin: 09/07/24 06:25 Dose: 17 gm Pregabalin (Pregabalin 150 Mg Cap) 150 mg PO BID AKASH Stop: 10/06/24 09:04 Last Admin: 09/07/24 08:30 Dose: 150 mg Topiramate (Topiramate 50 Mg Tab) 50 mg PO BID AKASH Stop: 10/06/24 09:04 Last Admin: 09/07/24 08:32 Dose: 50 mg Trazodone HCl (Trazodone Hcl 50 Mg Tab) 150 mg PO HS AKASH Stop: 10/06/24 20:59 Last Admin: 09/06/24 20:43 Dose: 150 mg Umeclidinium Aneta (Umeclidinium Aneta 62.5mcg/Blister 7 Puffs/Inhaler) 1 puffs INH DAILY AKASH Stop: 10/06/24 09:04 Last Admin: 09/07/24 08:32 Dose: 1 puffs PG Care Time/CCT Total # of Minutes Spent Total Time Spent with Patient: Total time spent is greater than 50% in coordination of care (as documented) at patient's floor/unit and/or counseling patient: Coding Diagnoses Non-ST elevation MS (NSTEMI) I21.4 CAD (coronary artery disease) I25.10 S/P coronary artery stent placement Z95.5 Dyslipidemia E78.5 Hypertension I10 Chronic heart failure with preserved ejection fraction I50.32
== END 2024-09-07 12:05 | disposition home or self-care (01) | DRG 322 ==
LOC: SUATTDRO → ED 02:43 → SUATTDRO 06:07 → EDINP 06:07 → 2S 13:56